=== PATIENT | female | born 2000 | race Caucasian/White ===

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

== ENCOUNTER 2022-01-02 11:38 | Emergency (ER) | payer BC, MEDICAID ==
[~2022-01-02] VITALS: Ht 174 cm; Wt 74.0 kg
[~2022-01-02 11:38] MED LIST changes: +CEFD300C3 PO; +NITR100C PO
[2022-01-02] MEDS ORDERED: NS IV 1000 ML 1,000 ML IV STA (12:34)
--- NOTE | 2022-01-02 12:39 | ED General ---
General Chief Complaint: Glucose Problems Stated Complaint: DKA Nursing Triage Note: PT STATES SHE MISS A DOSE OF LANTUS SUNDAY AND GLUCOSE WAS "OUT OF WACK YESTERDAY." Source of Information: Patient Exam Limitations: No Limitations History of Present Illness Date Seen by Provider: Jan 02, 2022 Time Seen by Provider: 12:37 Initial Comments Patient is a 21-year-old female who presents to the ED for abnormal blood sugar. She states Sunday she missed her Lantus. She is currently on NovoLog. She states her blood sugar has been up and down for the past few days. History of DKA with admission in the past. Patient states she started feeling weak fatigue and body aches that started this morning. She did vomited once this morning as well. She denies cough, fever, abdominal pain. She reports frequent urination. Not concern for . No recent travel surgeries. Allergies and Home Medications Allergies Coded Allergies: bismuth subsalicylate (Verified Allergy, Unknown, 10/27/21) Patient Home Medication List Home Medication List Reviewed: Yes Cefdinir (Cefdinir) 300 Mg Capsule, 300 MG PO BID Prescribed by: JOSIE SMYTH on 12/02/21 1022 Cephalexin (Cephalexin) 500 Mg Tablet, 500 MG PO BID Prescribed by: ROSSY FENG on 01/02/22 1601 Ferrous Sulfate (Iron) 325 Mg Tablet, 325 MG PO DAILY, (Reported) Entered as Reported by: COLT BOURNE on 11/21/21 1006 Ibuprofen (Ibuprofen) 200 Mg Tablet, 400-600 MG PO Q8H PRN for PAIN-MILD (1-4), (Reported) Entered as Reported by: COLT BOURNE on 11/21/21 1006 Insulin Aspart (Insulin Aspart Flexpen) 100 Unit/1 Ml Insuln.pen, UNIT SQ AC, (Reported) Entered as Reported by: COLT BOURNE on 11/21/21 1006 Insulin Glargine,Hum.rec.anlog (Lantus Solostar) 100 Unit/1 Ml Insuln.pen, 40 UNIT SQ HS, (Reported) Entered as Reported by: COLT BOURNE on 07/25/21 0936 Insulin Glargine,Hum.rec.anlog (Lantus Solostar) 100 Unit/1 Ml Insuln.pen, 35 UNIT SQ DAILY, (Reported) Entered as Reported by: COLT BOURNE on 07/25/21 0936 Review of Systems Review of Systems Constitutional: No chills, No diaphoresis, No fever, No malaise, No weakness EENTM: No ear pain, No blurred vision, No double vision, No eye pain, No tearing, No throat pain, No throat swelling Respiratory: No cough, No dyspnea on exertion, No hemoptysis, No orthopnea, No short of breath Cardiovascular: No chest pain Gastrointestinal: No abdominal pain, No diarrhea; nausea, vomiting Genitourinary: No decreased output, No discharge Musculoskeletal: No back pain, No joint pain Skin: No change in color, No change in hair/nails All Other Systems Reviewed Negative Unless Noted: Yes Past Cccumjl-Bwzvlh-Rynhmx Hx Immunizations Up To Date Tetanus Booster (TDap): Less than 5yrs PED Vaccines UTD: Yes First/Initial COVID19 Vaccinat: APR 2021 Second COVID19 Vaccination [place]: MAY 2021 Third COVID19 Vaccination Date: NONE Seasonal Allergies Seasonal Allergies: No Past Medical History Surgery/Hospitalization HX: 06/06/21-06/09/21 at for DKA. 08/2021--TRANSFERRED FROM [facility] IN FOR DKA AND CANNIBIS HYPEREMESIS Surgeries: No Respiratory: No Currently Using CPAP: No Currently Using BIPAP: No Cardiac: Yes (TACHYCARDIA) Palpitations Neurological: No Last Menstrual Period: Dec 01, 2021 Reproductive Disorders: No Female Reproductive Disorders: Denies Sexually Transmitted Disease: No HIV/AIDS: No Genitourinary: Yes Bladder Infection Gastrointestinal: Yes (CANNABIS HYPEREMESIS; CHRONIC 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 DX AGE 12) Diabetes, Insulin dep HEENT: No Loss of Vision: Denies Hearing Impairment: Denies Cancer: No Psychosocial: Yes Anxiety, Depression Integumentary: No Blood Disorders: No Adverse Reaction/Blood Tranf: No Family Medical History No Pertinent Family Hx Physical Exam Vital Signs Vital Signs - First Documented 01/02/22 12:29 Temp 36.2 Pulse 115 Resp 16 B/P (MAP) 109/80 (90) Pulse Ox 99 O2 Delivery Room Air Capillary Refill : Less Than 3 Seconds Height, Weight, BMI Height: 5'9.00" Weight: 255lbs. 0oz. 115.195698sz; 24.00 BMI Method:Stated General Appearance: No Apparent Distress, WD/WN Eyes: Bilateral Eye Normal Inspection, Bilateral Eye PERRL, Bilateral Eye EOMI HEENT: PERRL/EOMI, TMs Normal, Normal ENT Inspection, Pharynx Normal Neck: Full Range of Motion, Normal Inspection, Non Tender, Supple Respiratory: Chest Non Tender, Lungs Clear, Normal Breath Sounds, No Accessory Muscle Use, No Respiratory Distress Cardiovascular: No Edema, No Gallop, No JVD, No Murmur, Tachycardia Gastrointestinal: Normal Bowel Sounds, No Organomegaly, No Pulsatile Mass, Non Tender, Soft Back: Normal Inspection, No CVA Tenderness, No Vertebral Tenderness Extremity: Normal Capillary Refill, Normal Inspection, Normal Range of Motion, Non Tender Neurologic/Psychiatric: Alert, Oriented x3, No Motor/Sensory Deficits Procedures/Interventions Date of ETT Placement: Feb 18, 2021 Time of ETT Placement: 1432 Progress/Results/Core Measures Suspected Sepsis SIRS Temperature: Pulse: 115 Respiratory Rate: 16 Laboratory Tests 01/02/22 12:30: White Blood Count 6.7 Blood Pressure 109 /80 Mean: 90 Laboratory Tests 01/02/22 12:30: Creatinine 1.24, Platelet Count 405H, Total Bilirubin 0.3 Results/Orders Lab Results Laboratory Tests Test 01/02/22 12:30 01/02/22 12:32 01/02/22 12:44 01/02/22 13:35 Range/Units White Blood Count 6.7 4.3-11.0 10^3/uL Red Blood Count 4.74 3.80-5.11 10^6/uL Hemoglobin 13.7 11.5-16.0 g/dL Hematocrit 42 35-52 % Mean Corpuscular Volume 88 80-99 fL Mean Corpuscular Hemoglobin 29 25-34 pg Mean Corpuscular Hemoglobin Concent 33 32-36 g/dL Red Cell Distribution Width 14.8 H 10.0-14.5 % Platelet Count 405 H 130-400 10^3/uL Mean Platelet Volume 10.0 9.0-12.2 fL Immature Granulocyte % (Auto) 0 % Neutrophils (%) (Auto) 57 42-75 % Lymphocytes (%) (Auto) 34 12-44 % Monocytes (%) (Auto) 7 0-12 % Eosinophils (%) (Auto) 1 0-10 % Basophils (%) (Auto) 1 0-10 % Neutrophils # (Auto) 3.8 1.8-7.8 10^3/uL Lymphocytes # (Auto) 2.3 1.0-4.0 10^3/uL Monocytes # (Auto) 0.5 0.0-1.0 10^3/uL Eosinophils # (Auto) 0.1 0.0-0.3 10^3/uL Basophils # (Auto) 0.0 0.0-0.1 10^3/uL Immature Granulocyte # (Auto) 0.0 0.0-0.1 10^3/uL Sodium Level 143 135-145 MMOL/L Potassium Level 3.7 3.6-5.0 MMOL/L Chloride Level 106 98-107 MMOL/L Carbon Dioxide Level 22 21-32 MMOL/L Anion Gap 15 H 5-14 MMOL/L Blood Urea Nitrogen 14 7-18 MG/DL Creatinine 1.24 0.60-1.30 MG/DL Estimat Glomerular Filtration Rate 64 BUN/Creatinine Ratio 11 Glucose Level 72 70-105 MG/DL Calcium Level 9.3 8.5-10.1 MG/DL Corrected Calcium 9.4 8.5-10.1 MG/DL Total Bilirubin 0.3 0.1-1.0 MG/DL Aspartate Amino Transf (AST/SGOT) 56 H 5-34 U/L Alanine Aminotransferase (ALT/SGPT) 51 0-55 U/L Alkaline Phosphatase 195 H 40-136 U/L Total Protein 7.5 6.4-8.2 GM/DL Albumin 3.9 3.2-4.5 GM/DL Lipase 30 8-78 U/L Beta-Hydroxybutyrate (Chem panel) 0.92 H 0.00-0.27 MMOL/L Serum Test, Qualitative NEGATIVE NEGATIVE Glucometer 73 70-110 MG/DL Urine Color YELLOW Urine Clarity SL CLOUDY Urine pH 6.0 5-9 Urine Specific [place] 1.025 H 1.016-1.022 Urine Protein TRACE H NEGATIVE Urine Glucose (UA) NEGATIVE NEGATIVE Urine Ketones 1+ H NEGATIVE Urine Nitrite NEGATIVE NEGATIVE Urine Bilirubin NEGATIVE NEGATIVE Urine Urobilinogen 1.0 < = 1.0 MG/DL Urine Leukocyte Esterase TRACE H NEGATIVE Urine RBC (Auto) NEGATIVE NEGATIVE Urine RBC RARE /HPF Urine WBC 2-5 /HPF Urine Squamous Epithelial Cells 2-5 /HPF Urine Crystals PRESENT H /LPF Urine Amorphous Sediment LARGE ESTHELA URATES H /LPF Urine Bacteria FEW H /HPF Urine Casts NONE /LPF Urine Mucus NEGATIVE /LPF Urine Culture Indicated YES Blood Gas Puncture Site LEFT RAD Blood Gas Patient Temperature 37 Arterial Blood pH 7.34 *L 7.37-7.43 Arterial Blood Partial Pressure CO2 39 35-45 MMHG Arterial Blood Partial Pressure O2 79 79-93 MMHG Arterial Blood HCO3 20 L 23-27 MMOL/L Arterial Blood Total CO2 21.4 21.0-31.0 MMOL/L Arterial Blood Oxygen Saturation 96 94-100 % Arterial Blood Base Excess -4.5 L -2.5-2.5 MMOL/L Ajit Test YES-POS Blood Gas Ventilator Setting NO Blood Gas Inspired Oxygen ROOM AIR Test 01/02/22 15:52 Range/Units Glucometer 136 H 70-110 MG/DL My Orders Orders - CAN GRANT Accucheck Stat ONCE (01/02/22 11:57) Cbc With Automated Diff (01/02/22 12:34) Comprehensive Metabolic Panel (01/02/22 12:34) Lipase (01/02/22 12:34) Beta Hydroxybutyrate (01/02/22 12:34) Hcg,Qualitative Serum (01/02/22 12:34) Ua Culture If Indicated (01/02/22 12:34) Ns Iv 1000 Ml (Sodium Chloride 0.9%) (01/02/22 12:34) Ondansetron Injection (Zofran Injectio (01/02/22 12:45) Urine Culture (01/02/22 12:44) Arterial Blood Gas (01/02/22 13:25) General/Regular (01/02/22 Lunch) Accucheck Stat ONCE (01/02/22 15:47) Medications Given in ED Current Medications Medications Dose Ordered Sig/Thierno Route Start Time Stop Time Status Last Admin Dose Admin Ondansetron HCl 4 mg ONCE ONCE IVP 01/02/22 12:45 01/02/22 12:46 DC 01/02/22 12:51 4 MG Vital Signs/I&O 01/02/22 01/02/22 12:29 16:05 Temp 36.2 36.2 Pulse 115 107 Resp 16 16 B/P (MAP) 109/80 (90) 123/80 Pulse Ox 99 99 O2 Delivery Room Air Room Air Capillary Refill : Less Than 3 Seconds Blood Pressure Mean: 90 Point of Care Testing Finger Stick Blood Glucose: 72 Departure Communication (PCP) Patient blood sugar on arrival 73. Anion gap 15. +1 ketones in urine. ABG pH 7.34 with bicarb of 20. Appears to be in mild DKA. She was tachycardic which has improved. she has no chest pain or shortness of breath. She had normal white blood count, kidney function. Heart rate improved from 1 28 to107. Due to the slight DKA and tachycardic did recommend admission for better control of her blood sugar and recheck of lab work with IV fluids. Patient refused. She states she is feeling much better at this time. She was tolerating p.o. fluids at bedside. She states she will follow-up with her PCP in the next few days for reevaluation. She states she does have her Lantus and her NovoLog. She did eat something here with her blood sugar to 138. Did offer a second liter fluid patient refused. Strongly recommend returning if symptoms worsen. She has been discharged in the past and return fairly quick. Discussed with patient this may happen however recommend continue monitoring blood sugar at home. Impression Primary Impression: DKA, type 1 Disposition: 01 HOME, SELF-CARE Condition: Stable Departure-Patient Inst. Decision time for Depature: 15:57 Referrals: COLT LAMBERT DO (PCP/Family) Primary Care Physician Patient Instructions: Diabetes Type 1, Adult (DC) Add. Discharge Instructions: Need to follow-up your PCP in 2 or 3 days for evaluation. If any worsening symptoms strongly recommend returning All discharge instructions reviewed with patient and/or family. Voiced understanding. Scripts Cephalexin (Cephalexin) 500 Mg Tablet 500 MG PO BID for 7 Days, #14 TAB Prov: CAN GRANT 01/02/22 CAN GRANT Jan 02, 2022 12:39
[2022-01-02] MEDS ORDERED: ONDANSETRON 4 MG/2 ML (SDV) Z0FRAN IVP ONE (12:45)
[2022-01-02 12:46] LABS: BASOPHILS % (AUTO) 1 % (0-10); EOSINOPHILS # (AUTO) 0.1 10^3/uL (0.0-0.3); EOSINOPHILS % (AUTO) 1 % (0-10); HEMATOCRIT 42 % (35-52); HEMOGLOBIN 13.7 g/dL (11.5-16.0); LYMPHOCYTES # (AUTO) 2.3 10^3/uL (1.0-4.0); LYMPHOCYTES % (AUTO) 34 % (12-44); MEAN CORPUSCULAR HEMOGLOBIN 29 pg (25-34); MEAN CORPUSCULAR HGB CONC 33 g/dL (32-36); MEAN CORPUSCULAR VOLUME 88 fL (80-99); MONOCYTES # (AUTO) 0.5 10^3/uL (0.0-1.0); MONOCYTES % (AUTO) 7 % (0-12); NEUTROPHILS # (AUTO) 3.8 10^3/uL (1.8-7.8); NEUTROPHILS % (AUTO) 57 % (42-75); PLATELET COUNT 405 10^3/uL (130-400); WHITE BLOOD COUNT 6.7 10^3/uL (4.3-11.0)
[2022-01-02 12:51] LABS: CLARITY,URINE SL CLOUDY; COLOR,URINE YELLOW; GLUCOSE, URINE (UA) NEGATIVE (NEGATIVE); KETONES,URINE 1+ (NEGATIVE); LEUKOCYTE ESTERASE ,URINE TRACE (NEGATIVE); NITRITE,URINE NEGATIVE (NEGATIVE); PROTEIN,URINE TRACE (NEGATIVE)
[2022-01-02 12:59] LABS: ALBUMIN 3.9 GM/DL (3.2-4.5); BILIRUBIN,TOTAL 0.3 MG/DL (0.1-1.0); CALCIUM 9.3 MG/DL (8.5-10.1); CREATININE SERUM 1.24 MG/DL (0.60-1.30); POTASSIUM 3.7 MMOL/L (3.6-5.0); TOTAL PROTEIN 7.5 GM/DL (6.4-8.2)
[2022-01-02 13:10] LABS: BACTERIA,URINE FEW /HPF; BILIRUBIN,URINE NEGATIVE (NEGATIVE); RBC,URINE RARE /HPF
[2022-01-02 13:11] LABS: AMORPHOUS SEDIMENT,UR LARGE AMOR URATES /LPF
[2022-01-02 13:43] LABS: ABG BASE EXCESS -4.5 MMOL/L (-2.5-2.5); ABG OXYGEN SATURATION 96 % (94-100); ABG PCO2 39 MMHG (35-45); ABG PO2 79 MMHG (79-93); ABG TCO2 21.4 MMOL/L (21.0-31.0)
[2022-01-02 13:45] LABS: ABG PH 7.34 (7.37-7.43); ALLENS TEST YES-POS; INSPIRED O2 ROOM AIR; PATIENT TEMP 37; VENTILATOR NO
[2022-01-02] MEDS ORDERED: CEPH500T PO (16:01)
[2022-01-02 16:05] VITALS: BP 123/80
== END 2022-01-02 16:05 | disposition home or self-care (01) ==
LOC: EDUNIT# 11:38 → ER 11:39
DX: E10.10 Type 1 diabetes mellitus with ketoacidosis without coma (principal); T38.3X6A Underdosing of insulin and oral hypoglycemic [antidiabetic] drugs, initial encounter; Z91.14 Patient's other noncompliance with medication regimen
CPT/HCPCS: 36415; 80053; 81000; 82010; 82805; 82947; 83690; 84703; 85025; 87077; 87088

== ENCOUNTER 2022-02-15 23:25 | Inpatient (IN) | payer BC, MEDICAID ==
[~2022-02-15] VITALS: Ht 175.3 cm; Wt 69.8 kg
[~2022-02-15 23:25] MED LIST changes: +CEPH500T PO
[2022-02-15 23:39] VITALS: BP 119/67
--- NOTE | 2022-02-16 00:11 | ED Back Pain ---
General Chief Complaint: Back Problems Stated Complaint: BACK PAIN Nursing Triage Note: PT AMB TO RM 5 WITH FRIEND WITH C/O LOW BACK PAIN X1 MONTH AND MID BACK PAIN X2 WEEKS AFTER FALLING. PT HAS TRIED TYLENOL WITHOUT RELIEF Source of Information: Patient History of Present Illness Date Seen by Provider: Feb 16, 2022 Time Seen by Provider: 23:43 Initial Comments PT ARRIVES VIA POV FROM HOME WITH MALE FRIEND C/O LOWER BACK PAIN X 1 MONTH FELL AT A HOTEL POOL 2 WEEKS AGO, LANDED ON HER BACK ND STARTED HAVING PAIN IN MID BACK ALSO NOW HER WHOLE BACK HURTS AND STATES "IT HURTS TO DO ANYTHING" NO RADIATION OF PAIN NO PARESTHESIAS OR MOTOR DEFICITS NO LOSS OF BOWEL OR BLADDER CONTROL NO URINARY SYMPTOMS NO FEVER NO NAUSEA/VOMITING/DIARRHEA OR ABDOMINAL PAIN HAS NOT SOUGHT CARE UNTIL TONIGHT SYMPTOMS NO DIFFERENT TONIGHT HAS NOT TAKEN ANYTHING TODAY FOR PAIN--TOOK TYLENOL X 1 "A COUPLE OF DAYS AGO"--NO RELIEF. PT IS TYPE 1 DIABETIC HAS HAD A MULTITUDE OF VISITS HERE, WITH MULTIPLE ADMITS FOR DKA. 8 VISITS IN 2021 PT STATES SHE CHECKED HER BLOOD SUGAR AROUND 2245 And IT WAS 244, THEN SHE ATE SONIC CHICKEN STRIPS, TATER TOTS AND ONION RINGS, AND HAD A BLACKBERRY WITH [facility] [employer]. STATES SHE "DOSED" FOR HER INTAKE--BUT DID NOT RECHECK HER BLOOD SUGAR PT HAS HAD COVID-19 VACCINE X 2--LAST ONE WAS ABOUT A YEAR AGO. NO FLU VACCINE Other Comments PCP: [facility], PEPE LAMBERT. LAST VISIT > 1 MONTH AGO. Allergies and Home Medications Allergies Coded Allergies: bismuth subsalicylate (Verified Allergy, Unknown, 10/27/21) Patient Home Medication List Home Medication List Reviewed: Yes Cefdinir (Cefdinir) 300 Mg Capsule, 300 MG PO BID Prescribed by: JOSIE SMYTH on 12/02/21 1022 Cephalexin (Cephalexin) 500 Mg Tablet, 500 MG PO BID Prescribed by: ROSSY FENG on 01/02/22 1601 Ferrous Sulfate (Iron) 325 Mg Tablet, 325 MG PO DAILY, (Reported) Entered as Reported by: COLT BOURNE on 11/21/21 1006 Ibuprofen (Ibuprofen) 200 Mg Tablet, 400-600 MG PO Q8H PRN for PAIN-MILD (1-4), (Reported) Entered as Reported by: COLT BOURNE on 11/21/21 1006 Insulin Aspart (Insulin Aspart Flexpen) 100 Unit/1 Ml Insuln.pen, UNIT SQ AC, (Reported) Entered as Reported by: COLT BOURNE on 11/21/21 1006 Insulin Glargine,Hum.rec.anlog (Lantus Solostar) 100 Unit/1 Ml Insuln.pen, 40 UNIT SQ HS, (Reported) Entered as Reported by: COLT BOURNE on 07/25/21 0936 Insulin Glargine,Hum.rec.anlog (Lantus Solostar) 100 Unit/1 Ml Insuln.pen, 35 UNIT SQ DAILY, (Reported) Entered as Reported by: COLT BOURNE on 07/25/21935 Review of Systems Constitutional: no symptoms reported EENTM: no symptoms reported Respiratory: no symptoms reported Cardiovascular: no symptoms reported Gastrointestinal: no symptoms reported; No abdominal pain, No nausea, No vomiting Genitourinary: no symptoms reported; No dysuria, No frequency, No hematuria, No pain Control/STD Prophylaxis: None Musculoskeletal: see HPI, back pain Skin: no symptoms reported Psychiatric/Neurological: No Symptoms Reported Past Rudpcpd-Cluvgg-Dlxmlg Hx Patient Social History Tobacco Use?: No Use of E-Cig and/or Vaping dev: Yes E-Cig or Vaping type used: Nicotine Substance use?: Yes Substance type: Marijuana Alcohol Use?: Yes Alcohol type: Hard Liquor Alcohol Frequency: Rarely Pt feels they are or have been: No Immunizations Up To Date Tetanus Booster (TDap): Less than 5yrs PED Vaccines UTD: Yes First/Initial COVID19 Vaccinat: APR 2021 Second COVID19 Vaccination [place]: MAY 2021 Third COVID19 Vaccination Date: NONE 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 08/2021--TRANSFERRED FROM [facility] [place] IN FOR DKA AND CANNIBIS HYPEREMESIS DM Surgeries: No Respiratory: No Currently Using CPAP: No Currently Using BIPAP: No Cardiac: Yes (TACHYCARDIA) Palpitations Neurological: No : No Last Menstrual Period: February 06, 2022 Reproductive Disorders: No Female Reproductive Disorders: Denies Sexually Transmitted Disease: No HIV/AIDS: No Genitourinary: Yes Bladder Infection Gastrointestinal: Yes (CANNABIS HYPEREMESIS; CHRONIC 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 DX AGE 12) Diabetes, Insulin dep HEENT: No Loss of Vision: Denies Hearing Impairment: Denies Cancer: No Psychosocial: Yes Anxiety, Depression Integumentary: No Blood Disorders: No Adverse Reaction/Blood Tranf: No Family Medical History No Pertinent Family Hx Physical Exam Vital Signs Vital Signs - First Documented 02/15/22 23:39 Temp 36.8 Pulse 120 Resp 18 B/P (MAP) 119/67 (84) Capillary Refill : Height, Weight, BMI Height: 5'9.00" Weight: 255lbs. 0oz. 115.522385wi; 24.00 BMI Method:Stated General Appearance: No Apparent Distress (BUT IS VERY DRAMATIC AND WALKS AND MOVES SLOWLY AND HOLDING LEFT FLANK AREA. ), WD/WN HEENT: PERRL/EOMI, Moist Mucous Membranes Neck: Full Range of Motion, Normal Inspection, Non Tender, Supple Cardiovascular: No Edema, No JVD, No Murmur, Normal Peripheral Pulses, Tachycardia (HR 120'S) Respiratory: Normal Breath Sounds, No Accessory Muscle Use, No Respiratory Distress Gastrointestinal: Normal Bowel Sounds, No Organomegaly, No Pulsatile Mass, Non Tender, Soft Back: Decreased Range of Motion, Other (DIFFUSE BACK TENDERNESS. NO EXTERNAL EVIDENCE OF TRAUMA) Extremity: Normal Capillary Refill, Normal Inspection, Normal Range of Motion, Non Tender, No Calf Tenderness Neurologic/Psychiatric: Alert, Oriented x3, No Motor/Sensory Deficits, energy and sustainability manager II- XII Norm as Tested Skin: Normal Color, Warm/Dry; No Ecchymosis; Tattoos/Piercings (TATTOOS), Other (NO EXTERNAL EVIDENCE OF TRAUMA ) Procedures/Interventions Date of ETT Placement: Feb 18, 2021 Time of ETT Placement: 1431 Progress/Results/Core Measures Results/Orders Lab Results Laboratory Tests Test 02/15/22 23:47 02/16/22 00:21 02/16/22 00:30 02/16/22 00:40 Range/Units Glucometer 400 *H 70-110 MG/DL Urine Color YELLOW Urine Clarity SL CLOUDY Urine pH 5.5 5-9 Urine Specific [place] 1.015 L 1.016-1.022 Urine Protein NEGATIVE NEGATIVE Urine Glucose (UA) 3+ H NEGATIVE Urine Ketones 1+ H NEGATIVE Urine Nitrite NEGATIVE NEGATIVE Urine Bilirubin NEGATIVE NEGATIVE Urine Urobilinogen 0.2 < = 1.0 MG/DL Urine Leukocyte Esterase TRACE H NEGATIVE Urine RBC (Auto) NEGATIVE NEGATIVE Urine RBC NONE /HPF Urine WBC 5-10 H /HPF Urine Squamous Epithelial Cells 0-2 /HPF Urine Crystals NONE /LPF Urine Bacteria FEW H /HPF Urine Casts NONE /LPF Urine Mucus NEGATIVE /LPF Urine Culture Indicated YES Urine Opiates Screen NEGATIVE NEGATIVE Urine Oxycodone Screen NEGATIVE NEGATIVE Urine Methadone Screen NEGATIVE NEGATIVE Urine Propoxyphene Screen NEGATIVE NEGATIVE Urine Barbiturates Screen NEGATIVE NEGATIVE Ur Tricyclic Antidepressants Screen NEGATIVE NEGATIVE Urine Phencyclidine Screen NEGATIVE NEGATIVE Urine Amphetamines Screen NEGATIVE NEGATIVE Urine Methamphetamines Screen NEGATIVE NEGATIVE Urine Benzodiazepines Screen NEGATIVE NEGATIVE Urine Cocaine Screen NEGATIVE NEGATIVE Urine Cannabinoids Screen NEGATIVE NEGATIVE White Blood Count 5.1 4.3-11.0 10^3/uL Red Blood Count 4.21 3.80-5.11 10^6/uL Hemoglobin 12.6 11.5-16.0 g/dL Hematocrit 38 35-52 % Mean Corpuscular Volume 89 80-99 fL Mean Corpuscular Hemoglobin 30 25-34 pg Mean Corpuscular Hemoglobin Concent 34 32-36 g/dL Red Cell Distribution Width 14.6 H 10.0-14.5 % Platelet Count 361 130-400 10^3/uL Mean Platelet Volume 10.3 9.0-12.2 fL Immature Granulocyte % (Auto) 1 % Neutrophils (%) (Auto) 44 42-75 % Lymphocytes (%) (Auto) 44 12-44 % Monocytes (%) (Auto) 9 0-12 % Eosinophils (%) (Auto) 1 0-10 % Basophils (%) (Auto) 1 0-10 % Neutrophils # (Auto) 2.2 1.8-7.8 10^3/uL Lymphocytes # (Auto) 2.3 1.0-4.0 10^3/uL Monocytes # (Auto) 0.5 0.0-1.0 10^3/uL Eosinophils # (Auto) 0.1 0.0-0.3 10^3/uL Basophils # (Auto) 0.0 0.0-0.1 10^3/uL Immature Granulocyte # (Auto) 0.0 0.0-0.1 10^3/uL Sodium Level 136 135-145 MMOL/L Potassium Level 4.2 3.6-5.0 MMOL/L Chloride Level 101 98-107 MMOL/L Carbon Dioxide Level 17 L 21-32 MMOL/L Anion Gap 18 H 5-14 MMOL/L Blood Urea Nitrogen 13 7-18 MG/DL Creatinine 1.22 0.60-1.30 MG/DL Estimat Glomerular Filtration Rate 66 BUN/Creatinine Ratio 11 Glucose Level 486 *H 70-105 MG/DL Lactic Acid Level 2.69 *H 0.50-2.00 MMOL/L Calcium Level 8.7 8.5-10.1 MG/DL Corrected Calcium 9.1 8.5-10.1 MG/DL Magnesium Level 2.1 1.6-2.4 MG/DL Total Bilirubin 0.3 0.1-1.0 MG/DL Aspartate Amino Transf (AST/SGOT) 67 H 5-34 U/L Alanine Aminotransferase (ALT/SGPT) 55 0-55 U/L Alkaline Phosphatase 178 H 40-136 U/L Total Protein 6.6 6.4-8.2 GM/DL Albumin 3.5 3.2-4.5 GM/DL Amylase Level 76 25-125 U/L Lipase 57 8-78 U/L Beta-Hydroxybutyrate (Chem panel) 2.16 H 0.00-0.27 MMOL/L Procalcitonin 0.17 H <0.10 NG/ML Influenza Type A (RT-PCR) Not Detected Not Detecte Influenza Type B (RT-PCR) Not Detected Not Detecte SARS-CoV-2 RNA (RT-PCR) Not Detected Not Detecte Test 02/16/22 01:44 Range/Units Blood Gas Puncture Site LRAD Blood Gas Patient Temperature 98.2 Arterial Blood pH 7.30 *L 7.37-7.43 Arterial Blood Partial Pressure CO2 39 35-45 MMHG Arterial Blood Partial Pressure O2 39 *L 79-93 MMHG Arterial Blood HCO3 18 L 23-27 MMOL/L Arterial Blood Total CO2 19.6 L 21.0-31.0 MMOL/L Arterial Blood Oxygen Saturation 67 L 94-100 % Arterial Blood Base Excess -6.9 L -2.5-2.5 MMOL/L Ajit Test YES-POS Blood Gas Ventilator Setting NO Blood Gas Inspired Oxygen RA My Orders Orders - JUAN CARLOS,LADONNA K DO Drug Screen Stat (Urine) (02/15/22 23:43) Ua Culture If Indicated (02/15/22 23:43) Urine Bedside (02/15/22 23:43) Accucheck Stat ONCE (02/15/22 23:44) Ed Iv/Invasive Line Start (02/16/22 00:04) Amylase (02/16/22 00:04) Cbc With Automated Diff (02/16/22 00:04) Comprehensive Metabolic Panel (02/16/22 00:04) Lactic Acid Analyzer (02/16/22 00:04) Lipase (02/16/22 00:04) Magnesium (02/16/22 00:04) Procalcitonin (Pct) (02/16/22 00:04) Ed Iv/Invasive Line Start (02/16/22 00:04) Ns Iv 1000 Ml (Sodium Chloride 0.9%) (02/16/22 00:15) Beta Hydroxybutyrate (02/16/22 00:04) Covid 19 Inhouse Test (02/16/22 00:04) Influenza A And B By Pcr (02/16/22 00:04) Isolation Central Supply Req (02/16/22 00:04) Urine Culture (02/16/22 00:21) Ceftriaxone 1 Gm Pre-Mix (Rocephin 1 Gm (02/16/22 00:45) Ct Thoracic/Lumbar Spine Wo (02/16/22 00:45) Ketorolac Injection (Toradol Injection) (02/16/22 01:00) Insulin (Regular) Human (Novolin R (Per (02/16/22 01:15) Ed Iv/Invasive Line Start (02/16/22 01:07) Ns Iv 1000 Ml (Sodium Chloride 0.9%) (02/16/22 01:15) Arterial Blood Gas (02/16/22 01:35) Medications Given in ED Current Medications Medications Dose Ordered Sig/Thierno Route Start Time Stop Time Status Last Admin Dose Admin Ceftriaxone Sodium/Dextrose 50 ml @ 100 mls/hr ONCE ONCE IV 02/16/22 00:45 02/16/22 01:14 DC 02/16/22 01:15 100 MLS/HR Insulin Human Regular 15 unit ONCE ONCE SC 02/16/22 01:15 02/16/22 01:16 DC 02/16/22 01:29 15 UNIT Ketorolac Tromethamine 30 mg ONCE ONCE IVP 02/16/22 01:00 02/16/22 01:01 DC 02/16/22 01:14 30 MG Vital Signs/I&O 02/15/22 02/16/22 23:39 01:46 Temp 36.8 Pulse 120 Resp 18 B/P (MAP) 119/67 (84) 119/67 Blood Pressure Mean: 84 FSBG Bedside Testing Finger Stick Blood Glucose: 400 Blood Glucose Action Taken: RN AND DR NOTIFIED Progress Progress Note : Progress Note GIVEN IV FLUIDS AND TORADOL GIVEN INSULIN--ACCUCHECK ON ARRIVAL 400, REPEAT ACCUCHECK 375 GIVEN ROCEPHIN VERY DIFFICULT IV ACCESS ABG'S DONE, SUSPECT IS VENOUS SOURCE. NO DETERIORATION IN PT'S CONDITION DURING ER STAY Diagnostic Imaging Comments CT THORACIC/LUMBAR SPINE--PER [facility] VIA FAX AT 0138 NO ACUTE PROCESS DEGENERATIVE CHANGES OF LUMBAR SPINE Reviewed: Reviewed by Hi Departure Communication (Admissions) 0155--SPOKE WITH DR. OKEEFE, ACCEPTS PT FOR ADMIT 0200--REPORT TO E-ICU PHYSICIAN. Impression Primary Impression: DKA (diabetic ketoacidosis) Additional Impressions: Type 1 diabetes mellitus UTI (urinary tract infection) Back pain Disposition: ADMITTED INPATIENT Condition: Stable Admissions Decision to Admit Reason: Admit from ER (General) Decision to Admit/Date: Feb 16, 2022 Time/Decision to Admit Time: 01:55 Departure-Patient Inst. Referrals: COLT LAMBERT DO (PCP/Family) Primary Care Physician LADONNA RANGEL DO Feb 16, 2022 00:11
[2022-02-16] MEDS ORDERED: NS IV 1000 ML 1,000 ML IV SCH ×3 (00:15→02:45)
[2022-02-16 00:31] LABS: BILIRUBIN,URINE NEGATIVE (NEGATIVE); CLARITY,URINE SL CLOUDY; COLOR,URINE YELLOW; GLUCOSE, URINE (UA) 3+ (NEGATIVE); KETONES,URINE 1+ (NEGATIVE); LEUKOCYTE ESTERASE ,URINE TRACE (NEGATIVE); NITRITE,URINE NEGATIVE (NEGATIVE); PH,URINE 5.5 (5-9); PROTEIN,URINE NEGATIVE (NEGATIVE)
[2022-02-16 00:41] LABS: BACTERIA,URINE FEW /HPF; SQUAMOUS EPITHELIAL CELL,UR 0-2 /HPF
[2022-02-16 00:42] LABS: AMPHETAMINE SCREEN, URINE NEGATIVE (NEGATIVE); BARBITURATE SCREEN URINE NEGATIVE (NEGATIVE); BENZODIAZEPINES SCREEN URINE NEGATIVE (NEGATIVE); CANNABINOID SCREEN, URINE NEGATIVE (NEGATIVE); COCAINE SCREEN URINE NEGATIVE (NEGATIVE); METHADONE STAT NEGATIVE (NEGATIVE); OPIATE SCREEN URINE NEGATIVE (NEGATIVE); OXYCODONE STAT NEGATIVE (NEGATIVE); PROPOXYPHENE STAT NEGATIVE (NEGATIVE); TRICYCLIC ANTIDEPRESSANTS SCRE NEGATIVE (NEGATIVE)
[2022-02-16 00:43] LABS: BASOPHILS % (AUTO) 1 % (0-10); EOSINOPHILS # (AUTO) 0.1 10^3/uL (0.0-0.3); EOSINOPHILS % (AUTO) 1 % (0-10); HEMATOCRIT 38 % (35-52); HEMOGLOBIN 12.6 g/dL (11.5-16.0); LYMPHOCYTES # (AUTO) 2.3 10^3/uL (1.0-4.0); LYMPHOCYTES % (AUTO) 44 % (12-44); MEAN CORPUSCULAR HEMOGLOBIN 30 pg (25-34); MEAN CORPUSCULAR HGB CONC 34 g/dL (32-36); MEAN CORPUSCULAR VOLUME 89 fL (80-99); MEAN PLATELET VOLUME 10.3 fL (9.0-12.2); MONOCYTES # (AUTO) 0.5 10^3/uL (0.0-1.0); MONOCYTES % (AUTO) 9 % (0-12); NEUTROPHILS # (AUTO) 2.2 10^3/uL (1.8-7.8); NEUTROPHILS % (AUTO) 44 % (42-75); PLATELET COUNT 361 10^3/uL (130-400); WHITE BLOOD COUNT 5.1 10^3/uL (4.3-11.0)
[2022-02-16] MEDS ORDERED: cefTRIAXone 1 GM PRE-MIX 50 ML IV ONE (00:45)
[2022-02-16 00:55] LABS: ALBUMIN 3.5 GM/DL (3.2-4.5); POTASSIUM 4.2 MMOL/L (3.6-5.0)
[2022-02-16 00:56] LABS: CALCIUM 8.7 MG/DL (8.5-10.1)
[2022-02-16 00:57] LABS: TOTAL PROTEIN 6.6 GM/DL (6.4-8.2)
[2022-02-16 00:59] LABS: BILIRUBIN,TOTAL 0.3 MG/DL (0.1-1.0)
[2022-02-16] MEDS ORDERED: KETOROLAC 30 MG/ML VIAL IVP ONE (01:00)
[2022-02-16 01:01] LABS: CREATININE SERUM 1.22 MG/DL (0.60-1.30)
[2022-02-16 01:03] LABS: MAGNESIUM 2.1 MG/DL (1.6-2.4)
[2022-02-16] MEDS ORDERED: inSUlin (REGULAR) HUMAN 1 UNIT/0.01 ML (CHARGE PER UNIT) SC ONE (01:15)
[2022-02-16 01:51] LABS: ABG BASE EXCESS -6.9 MMOL/L (-2.5-2.5); ABG OXYGEN SATURATION 67 % (94-100); ABG PCO2 39 MMHG (35-45); ABG TCO2 19.6 MMOL/L (21.0-31.0)
[2022-02-16 01:53] LABS: ALLENS TEST YES-POS; INSPIRED O2 RA; PATIENT TEMP 98.2; VENTILATOR NO
[2022-02-16 01:54] LABS: ABG PO2 39 MMHG (79-93)
[2022-02-16] MEDS ORDERED: KETOROLAC 30 MG/ML VIAL IV PRN (02:45)
[2022-02-16] MEDS ORDERED: D5 1/2 NS 1000 ML IV SOLUTION 1,000 ML IV SCH (02:45)
[2022-02-16] MEDS ORDERED: ONDANSETRON 4 MG/2 ML (SDV) Z0FRAN IV PRN (02:45)
[2022-02-16] MEDS ORDERED: 1/2 NS IV SOLUTION 1,000 ML IV ONE (02:51)
--- NOTE | 2022-02-16 03:18 | Tele-ICU Progress Note ---
Progress Note 21F with DM1, frequent DKA admissions presented for severe and progressive back pain, found to be in DKA. Glucose 486 with anion gap 18. Prior to presentation had Sonic chicken strips, tater tots, onion rings and a sprite (regular). She did dose her insulin for the meal, did not recheck glucose after. - DKA protocol including insulin gtt, serial labs, IVF - back pain: CT reviewed, virtual read reviewed. Appears to have Schmorl's nodes indicative of disc herniation. - UTI: borderline UA, likely related to DKA. Empiric rocephin given. Culture pending. Focused Exam Lactate Level 02/16/22 00:30: Lactic Acid Level 2.69*H Height, Weight, BMI Height: 5'9.00" Weight: 255lbs. 0oz. [id number]; 24.00 BMI Method:Stated Lactic Acid Level Laboratory Tests Test 02/16/22 00:30 Lactic Acid Level 2.69 MMOL/L (0.50-2.00) *H ANG OGDEN MD Feb 16, 2022 03:18
[2022-02-16 03:41] LABS: BASOPHILS # (AUTO) 0.1 10^3/uL (0.0-0.1); BASOPHILS % (AUTO) 1 % (0-10); EOSINOPHILS # (AUTO) 0.1 10^3/uL (0.0-0.3); EOSINOPHILS % (AUTO) 2 % (0-10); HEMATOCRIT 33 % (35-52); HEMOGLOBIN 10.6 g/dL (11.5-16.0); LYMPHOCYTES # (AUTO) 3.5 10^3/uL (1.0-4.0); LYMPHOCYTES % (AUTO) 57 % (12-44); MEAN CORPUSCULAR HEMOGLOBIN 30 pg (25-34); MEAN CORPUSCULAR HGB CONC 32 g/dL (32-36); MEAN CORPUSCULAR VOLUME 93 fL (80-99); MONOCYTES # (AUTO) 0.5 10^3/uL (0.0-1.0); MONOCYTES % (AUTO) 9 % (0-12); NEUTROPHILS # (AUTO) 1.9 10^3/uL (1.8-7.8); NEUTROPHILS % (AUTO) 31 % (42-75); PLATELET COUNT 301 10^3/uL (130-400); WHITE BLOOD COUNT 6.2 10^3/uL (4.3-11.0)
[2022-02-16] MEDS: 1/2 NS IV SOLUTION 1,000 ML IV SCH ×2 (03:45→06:59)
[2022-02-16 04:14] LABS: POTASSIUM 3.3 MMOL/L (3.6-5.0)
[2022-02-16 04:16] LABS: CALCIUM 7.9 MG/DL (8.5-10.1)
[2022-02-16 04:20] LABS: CREATININE SERUM 0.93 MG/DL (0.60-1.30)
[2022-02-16] MEDS ORDERED: polyethylene glycoL POWDER 17 GM (MIRALAX) PACK PO PRN (04:30)
[2022-02-16] MEDS ORDERED: MAGNESIUM CITRATE 300 ML BTL PO PRN (04:30)
[2022-02-16] MEDS ORDERED: morphine INJ 4 MG/ML 1 ML (VIAL/SYRINGE) IV PRN (04:45)
[2022-02-16] MEDS: POTASSIUM CL 10MEQ/50ML IVPB 50 ML IV SCH ×2 (04:47→06:55)
[2022-02-16 05:30] LABS: POTASSIUM 2.8 MMOL/L (3.6-5.0)
[2022-02-16 05:31] LABS: CALCIUM 8.2 MG/DL (8.5-10.1)
[2022-02-16 05:33] LABS: TOTAL PROTEIN 5.6 GM/DL (6.4-8.2)
[2022-02-16 05:35] LABS: BILIRUBIN,TOTAL 0.1 MG/DL (0.1-1.0)
[2022-02-16 05:36] LABS: PHOSPHORUS 2.7 MG/DL (2.3-4.7)
[2022-02-16 05:37] LABS: CREATININE SERUM 0.8 MG/DL (0.60-1.30)
[2022-02-16 05:40] LABS: MAGNESIUM 1.7 MG/DL (1.6-2.4)
--- NOTE | 2022-02-16 06:42 | Diagnostic Imaging Report ---
PROCEDURE: CT thoracic and lumbar spine without contrast. TECHNIQUE: Multiple contiguous axial images were obtained through the thoracic and lumbar spine without the use of intravenous contrast. Sagittal and coronal reformations were then performed. All CT scans use one or more of the following dose optimizing techniques: automated exposure control, MA and/or KvP adjustment based on a patient size and exam type, or iterative reconstruction. INDICATION: Lower back pain x1 month. Mid back pain x2 weeks. Recent fall. COMPARISON: None FINDINGS: CT thoracic spine: Static alignment of the thoracic spine is maintained. There is no significant anteroretrolisthesis. There is no evidence of jumped facets. Vertebral body heights are maintained. There is no acute fracture. No bony fragments are seen within the spinal canal. No significant degenerative changes are identified. Pre and paravertebral soft tissue structures are unremarkable. Included portions of the lung fuller are clear. CT lumbar spine: Static alignment of the lumbar spine is maintained. There is no significant anteroretrolisthesis. There is no evidence of jumped facets. Vertebral body heights are maintained. There is no acute fracture. Note is made of broad-based posterior disc bulge greatest at the L3-L4 and L4-L5 levels. There also appears to be inferior extrusion of disc material within the anterior epidural space at L3-L4. This does result in at least moderate narrowing of the spinal canal. Pre and paravertebral soft tissue structures are unremarkable. IMPRESSION: 1. No acute fracture or dislocation of the thoracic or lumbar spine. 2. Degenerative changes lower lumbar spine greatest at L3-L4 as described above. Correlation with MRI may be of benefit. Dictated by: Dictated on workstation # [id number]
[2022-02-16] MEDS ORDERED: CATHETER FLUSH 10 ML SYR IV PRN (07:00)
[2022-02-16] MEDS ORDERED: HYDROcodone/APAP 5 MG/325 MG (LORTAB) TAB PO PRN (08:15)
[2022-02-16 09:49] LABS: CALCIUM 8.3 MG/DL (8.5-10.1); CREATININE SERUM 0.64 MG/DL (0.60-1.30); POTASSIUM 4.1 MMOL/L (3.6-5.0)
[2022-02-16] MEDS ORDERED: ACET-2267 PO (11:00)
[2022-02-16] MEDS: inSUlin ASPART (NovoLOG) 1 UNIT/0.01 ML (CHARGE PER UNIT) SC SCH ×4 (11:23→16:14)
[2022-02-16] MEDS ORDERED: CATHETER FLUSH 10 ML SYR IV SCH (14:00)
[2022-02-16 16:10] LABS: CALCIUM 8.8 MG/DL (8.5-10.1); CREATININE SERUM 0.72 MG/DL (0.60-1.30); POTASSIUM 4.3 MMOL/L (3.6-5.0)
--- NOTE | 2022-02-16 16:27 | Short Stay Summary ---
HPI History of Present Illness: 21 yo F well known to me with DKA. States that she came to the ER with back pain and was found to have elevated blood sugars. States that her sugars at home have been doing ok. States that she has been having back pain for the last few weeks and then she fell at work and has been having more back pain. Denies any fever or chills. She has been eating normally. No N/V or abdominal pain. Source: patient Exam Limitations: no limitations Date seen by provider: Feb 16, 2022 Time Seen by Provider: 09:45 Attending Physician Carlos Lyn DO PCP Admitting Physician: Jose Esposito MD Attending Physician: Jose Esposito MD Consult Date of Admission Feb 16, 2022 at 01:55 Home Medications Home Medications Reviewed patient Home Medication Reconciliation performed by pharmacy medication reconciliations template reproduction technician and/or nursing. Patients Allergies have been reviewed. 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: [employer] Past Medical History Type I DM Depression Family Medical History Significant Family History: No Pertinent Family Hx Review of Systems ([facility]) Constitutional: no symptoms reported EENTM: no symptoms reported Respiratory: no symptoms reported, dyspnea on exertion Gastrointestinal: no symptoms reported Genitourinary: frequency Musculoskeletal: back pain Skin: no symptoms reported Psychiatric/Neurological: No Symptoms Reported Reviewed Test Results Reviewed Test Results Lab Laboratory Tests Test 02/15/22 23:47 02/16/22 00:21 02/16/22 00:30 02/16/22 00:40 Range/Units Glucometer 400 *H 70-110 MG/DL Urine Color YELLOW Urine Clarity SL CLOUDY Urine pH 5.5 5-9 Urine Specific Reserve 1.015 L 1.016-1.022 Urine Protein NEGATIVE NEGATIVE Urine Glucose (UA) 3+ H NEGATIVE Urine Ketones 1+ H NEGATIVE Urine Nitrite NEGATIVE NEGATIVE Urine Bilirubin NEGATIVE NEGATIVE Urine Urobilinogen 0.2 < = 1.0 MG/DL Urine Leukocyte Esterase TRACE H NEGATIVE Urine RBC (Auto) NEGATIVE NEGATIVE Urine RBC NONE /HPF Urine WBC 5-10 H /HPF Urine Squamous Epithelial Cells 0-2 /HPF Urine Crystals NONE /LPF Urine Bacteria FEW H /HPF Urine Casts NONE /LPF Urine Mucus NEGATIVE /LPF Urine Culture Indicated YES Urine Opiates Screen NEGATIVE NEGATIVE Urine Oxycodone Screen NEGATIVE NEGATIVE Urine Methadone Screen NEGATIVE NEGATIVE Urine Propoxyphene Screen NEGATIVE NEGATIVE Urine Barbiturates Screen NEGATIVE NEGATIVE Ur Tricyclic Antidepressants Screen NEGATIVE NEGATIVE Urine Phencyclidine Screen NEGATIVE NEGATIVE Urine Amphetamines Screen NEGATIVE NEGATIVE Urine Methamphetamines Screen NEGATIVE NEGATIVE Urine Benzodiazepines Screen NEGATIVE NEGATIVE Urine Cocaine Screen NEGATIVE NEGATIVE Urine Cannabinoids Screen NEGATIVE NEGATIVE White Blood Count 5.1 4.3-11.0 10^3/uL Red Blood Count 4.21 3.80-5.11 10^6/uL Hemoglobin 12.6 11.5-16.0 g/dL Hematocrit 38 35-52 % Mean Corpuscular Volume 89 80-99 fL Mean Corpuscular Hemoglobin 30 25-34 pg Mean Corpuscular Hemoglobin Concent 34 32-36 g/dL Red Cell Distribution Width 14.6 H 10.0-14.5 % Platelet Count 361 130-400 10^3/uL Mean Platelet Volume 10.3 9.0-12.2 fL Immature Granulocyte % (Auto) 1 % Neutrophils (%) (Auto) 44 42-75 % Lymphocytes (%) (Auto) 44 12-44 % Monocytes (%) (Auto) 9 0-12 % Eosinophils (%) (Auto) 1 0-10 % Basophils (%) (Auto) 1 0-10 % Neutrophils # (Auto) 2.2 1.8-7.8 10^3/uL Lymphocytes # (Auto) 2.3 1.0-4.0 10^3/uL Monocytes # (Auto) 0.5 0.0-1.0 10^3/uL Eosinophils # (Auto) 0.1 0.0-0.3 10^3/uL Basophils # (Auto) 0.0 0.0-0.1 10^3/uL Immature Granulocyte # (Auto) 0.0 0.0-0.1 10^3/uL Sodium Level 136 135-145 MMOL/L Potassium Level 4.2 3.6-5.0 MMOL/L Chloride Level 101 98-107 MMOL/L Carbon Dioxide Level 17 L 21-32 MMOL/L Anion Gap 18 H 5-14 MMOL/L Blood Urea Nitrogen 13 7-18 MG/DL Creatinine 1.22 0.60-1.30 MG/DL Estimat Glomerular Filtration Rate 66 BUN/Creatinine Ratio 11 Glucose Level 486 *H 70-105 MG/DL Lactic Acid Level 2.69 *H 0.50-2.00 MMOL/L Calcium Level 8.7 8.5-10.1 MG/DL Corrected Calcium 9.1 8.5-10.1 MG/DL Magnesium Level 2.1 1.6-2.4 MG/DL Total Bilirubin 0.3 0.1-1.0 MG/DL Aspartate Amino Transf (AST/SGOT) 67 H 5-34 U/L Alanine Aminotransferase (ALT/SGPT) 55 0-55 U/L Alkaline Phosphatase 178 H 40-136 U/L Total Protein 6.6 6.4-8.2 GM/DL Albumin 3.5 3.2-4.5 GM/DL Amylase Level 76 25-125 U/L Lipase 57 8-78 U/L Beta-Hydroxybutyrate (Chem panel) 2.16 H 0.00-0.27 MMOL/L Procalcitonin 0.17 H <0.10 NG/ML Influenza Type A (RT-PCR) Not Detected Not Detecte Influenza Type B (RT-PCR) Not Detected Not Detecte SARS-CoV-2 RNA (RT-PCR) Not Detected Not Detecte Test 02/16/22 01:44 02/16/22 02:04 02/16/22 02:48 02/16/22 03:35 Range/Units Blood Gas Puncture Site LRAD Blood Gas Patient Temperature 98.2 Arterial Blood pH 7.30 *L 7.37-7.43 Arterial Blood Partial Pressure CO2 39 35-45 MMHG Arterial Blood Partial Pressure O2 39 *L 79-93 MMHG Arterial Blood HCO3 18 L 23-27 MMOL/L Arterial Blood Total CO2 19.6 L 21.0-31.0 MMOL/L Arterial Blood Oxygen Saturation 67 L 94-100 % Arterial Blood Base Excess -6.9 L -2.5-2.5 MMOL/L Ajit Test YES-POS Blood Gas Ventilator Setting NO Blood Gas Inspired Oxygen RA Glucometer 375 H 256 H 70-110 MG/DL White Blood Count 6.2 4.3-11.0 10^3/uL Red Blood Count 3.56 L 3.80-5.11 10^6/uL Hemoglobin 10.6 L 11.5-16.0 g/dL Hematocrit 33 L 35-52 % Mean Corpuscular Volume 93 80-99 fL Mean Corpuscular Hemoglobin 30 25-34 pg Mean Corpuscular Hemoglobin Concent 32 32-36 g/dL Red Cell Distribution Width 14.6 H 10.0-14.5 % Platelet Count 301 130-400 10^3/uL Mean Platelet Volume 10.0 9.0-12.2 fL Immature Granulocyte % (Auto) 1 % Neutrophils (%) (Auto) 31 L 42-75 % Lymphocytes (%) (Auto) 57 H 12-44 % Monocytes (%) (Auto) 9 0-12 % Eosinophils (%) (Auto) 2 0-10 % Basophils (%) (Auto) 1 0-10 % Neutrophils # (Auto) 1.9 1.8-7.8 10^3/uL Lymphocytes # (Auto) 3.5 1.0-4.0 10^3/uL Monocytes # (Auto) 0.5 0.0-1.0 10^3/uL Eosinophils # (Auto) 0.1 0.0-0.3 10^3/uL Basophils # (Auto) 0.1 0.0-0.1 10^3/uL Immature Granulocyte # (Auto) 0.0 0.0-0.1 10^3/uL Sodium Level 137 135-145 MMOL/L Potassium Level 3.3 L 3.6-5.0 MMOL/L Chloride Level 106 98-107 MMOL/L Carbon Dioxide Level 11 L 21-32 MMOL/L Anion Gap 20 H 5-14 MMOL/L Blood Urea Nitrogen 13 7-18 MG/DL Creatinine 0.93 0.60-1.30 MG/DL Estimat Glomerular Filtration Rate 91 BUN/Creatinine Ratio 14 Glucose Level 204 H 70-105 MG/DL Lactic Acid Level 9.12 *H 0.50-2.00 MMOL/L Calcium Level 7.9 L 8.5-10.1 MG/DL Test 02/16/22 04:20 02/16/22 04:33 02/16/22 05:14 02/16/22 05:43 Range/Units Lactic Acid Level 8.94 *H 0.50-2.00 MMOL/L Glucometer 144 H 129 H 70-110 MG/DL Sodium Level 140 135-145 MMOL/L Potassium Level 2.8 L 3.6-5.0 MMOL/L Chloride Level 108 H 98-107 MMOL/L Carbon Dioxide Level 16 L 21-32 MMOL/L Anion Gap 16 H 5-14 MMOL/L Blood Urea Nitrogen 11 7-18 MG/DL Creatinine 0.80 0.60-1.30 MG/DL Estimat Glomerular Filtration Rate 109 BUN/Creatinine Ratio 14 Glucose Level 124 H 70-105 MG/DL Calcium Level 8.2 L 8.5-10.1 MG/DL Corrected Calcium 9.0 8.5-10.1 MG/DL Phosphorus Level 2.7 2.3-4.7 MG/DL Magnesium Level 1.7 1.6-2.4 MG/DL Total Bilirubin 0.1 0.1-1.0 MG/DL Aspartate Amino Transf (AST/SGOT) 52 H 5-34 U/L Alanine Aminotransferase (ALT/SGPT) 46 0-55 U/L Alkaline Phosphatase 152 H 40-136 U/L Total Protein 5.6 L 6.4-8.2 GM/DL Albumin 3.0 L 3.2-4.5 GM/DL Beta-Hydroxybutyrate (Chem panel) 0.21 0.00-0.27 MMOL/L Test 02/16/22 06:25 02/16/22 06:38 02/16/22 07:33 02/16/22 09:18 Range/Units Lactic Acid Level 3.60 *H 2.21 *H 0.50-2.00 MMOL/L Glucometer 143 H 148 H 70-110 MG/DL Sodium Level 138 135-145 MMOL/L Potassium Level 4.1 3.6-5.0 MMOL/L Chloride Level 108 H 98-107 MMOL/L Carbon Dioxide Level 17 L 21-32 MMOL/L Anion Gap 13 5-14 MMOL/L Blood Urea Nitrogen 11 7-18 MG/DL Creatinine 0.64 0.60-1.30 MG/DL Estimat Glomerular Filtration Rate 130 BUN/Creatinine Ratio 17 Glucose Level 106 H 70-105 MG/DL Calcium Level 8.3 L 8.5-10.1 MG/DL Test 02/16/22 10:55 02/16/22 11:50 02/16/22 13:45 02/16/22 14:33 Range/Units Glucometer 191 H 53 *L 70-110 MG/DL Lactic Acid Level 5.52 *H 2.26 *H 0.50-2.00 MMOL/L Test 02/16/22 15:04 02/16/22 15:40 02/16/22 15:41 Range/Units Glucometer 99 86 70-110 MG/DL Sodium Level 138 135-145 MMOL/L Potassium Level 4.3 3.6-5.0 MMOL/L Chloride Level 103 98-107 MMOL/L Carbon Dioxide Level 21 21-32 MMOL/L Anion Gap 14 5-14 MMOL/L Blood Urea Nitrogen 11 7-18 MG/DL Creatinine 0.72 0.60-1.30 MG/DL Estimat Glomerular Filtration Rate 123 BUN/Creatinine Ratio 15 Glucose Level 86 70-105 MG/DL Lactic Acid Level 2.84 *H 0.50-2.00 MMOL/L Calcium Level 8.8 8.5-10.1 MG/DL Physical Exam-([facility]) Physical Exam Vital Signs VS - Last 72 Hours, by Label 02/15/22 02/16/22 02/16/22 02/16/22 23:39 01:46 02:40 02:45 Temp 36.8 36.1 Pulse 120 96 93 Resp 18 20 19 B/P (MAP) 119/67 (84) 119/67 123/91 129/90 Pulse Ox 100 100 O2 Delivery Room Air Room Air 02/16/22 02/16/22 02/16/22 02/16/22 02:50 02:58 03:00 03:15 Pulse 100 105 89 Resp 19 19 B/P (MAP) 126/87 Pulse Ox 100 100 O2 Delivery Room Air Room Air Room Air 02/16/22 02/16/22 02/16/22 02/16/22 03:30 03:45 04:00 04:01 Temp 36.7 Pulse 90 87 95 Resp 19 19 16 B/P (MAP) 126/85 124/81 127/80 Pulse Ox 100 100 100 O2 Delivery Room Air Room Air Room Air 02/16/22 02/16/22 02/16/22 02/16/22 05:00 06:00 07:00 07:00 Pulse 99 100 91 88 Resp 17 17 15 B/P (MAP) 130/93 108/58 117/67 Pulse Ox 100 99 99 O2 Delivery Room Air Room Air Room Air 02/16/22 02/16/22 02/16/22 02/16/22 08:00 08:00 09:00 10:00 Temp 36.1 Pulse 81 102 83 Resp 15 12 8 B/P (MAP) 105/65 115/76 114/78 Pulse Ox 99 100 100 O2 Delivery Room Air Room Air Room Air 02/16/22 02/16/22 02/16/22 02/16/22 11:00 12:00 13:00 13:00 Pulse 88 92 116 115 Resp 12 16 11 B/P (MAP) 118/89 126/89 115/93 Pulse Ox 100 99 100 O2 Delivery Room Air Room Air Room Air 02/16/22 02/16/22 14:00 15:00 Pulse 102 101 Resp 12 26 B/P (MAP) 116/78 115/80 Pulse Ox 100 100 O2 Delivery Room Air Room Air Capillary Refill : General Appearance: WD/WN, no apparent distress HEENT: PERRL/EOMI Neck: non-tender, full range of motion, supple Respiratory: chest non-tender, lungs clear, normal breath sounds, no respiratory distress, no accessory muscle use Cardiovascular: normal peripheral pulses, regular rate, rhythm, no edema, no murmur Gastrointestinal: normal bowel sounds, non tender, soft Back: no CVA tenderness, decreased range of motion (do to lower back pain), m uscle spasm Extremities: normal range of motion, non-tender, no pedal edema, no calf tenderness, normal capillary refill Neurologic/Psychiatric: salt washer II-XII nml as tested, no motor/sensory deficits, alert, normal mood/affect, oriented x 3 Skin: normal color, warm/dry Lymphatic: no adenopathy Short Stay Diagnosis Discharge Diagnosis-Short Stay Admission Diagnosis See problem list Final Discharge Diagnosis See problem list Conclusion Plan See problem list Assessment/Plan Assessment/Plan Admission Status: Observation (1) Back pain Status: Acute Assessment & Plan: - States that she has had imaging and has appt with a spine clinic, appt was today but she is going to reschedule, discussed gentle stretching, NSAIDs Qualifiers: Qualified Codes: M54.50 - Low back pain, unspecified (2) Type 1 diabetes mellitus Status: Chronic Assessment & Plan: - Insulin gtts, transitioned to subcutaneous insulin, acidosis resolved and patient eager to leave Qualifiers: Qualified Codes: E10.65 - Type 1 diabetes mellitus with hyperglycemia (3) DKA (diabetic ketoacidosis) Status: Acute Qualifiers: Qualified Codes: E10.10 - Type 1 diabetes mellitus with ketoacidosis without coma (4) UTI (urinary tract infection) Status: Acute Assessment & Plan: - Will f.u on culture, PO antibiotics sent to finish as outpatient Qualifiers: Qualified Codes: N30.00 - Acute cystitis without hematuria JOSE ESPOSITO MD Feb 16, 2022 16:27
[2022-02-16] MEDS ORDERED: CEPH500T PO (16:32)
--- NOTE | 2022-02-16 16:32 | Discharge Summary ---
Discharge [facility] Reconcile Patient Problems Problems Reviewed?: Yes Discharge Medications New, Converted or Re-Newed RX: Transmitted to Pharmacy New Medications: Cephalexin (Cephalexin) 500 Mg Tablet 500 MG PO BID for 3 Days, #6 TAB Continued Medications: Acetaminophen (Tylenol Extra Strength) 500 Mg Tablet 1000 MG PO Q8H PRN for PAIN-MILD (1-4), TAB Ibuprofen (Ibuprofen) 200 Mg Tablet 400-600 MG PO Q8H PRN for PAIN-MILD (1-4), TAB Insulin Aspart (Insulin Aspart Flexpen) 100 Unit/1 Ml Insuln.pen UNIT SQ AC, EA USES PER SLIDING SCALE Insulin Glargine,Hum.rec.anlog (Lantus Solostar) 100 Unit/1 Ml Insuln.pen 40 UNIT SQ HS, EA LAST FILLED 10-16-2021 #7 PENS/28 SAY SUPPLY Insulin Glargine,Hum.rec.anlog (Lantus Solostar) 100 Unit/1 Ml Insuln.pen 35 UNIT SQ DAILY, EA LAST FILLED 10-16-2021 #7 PENS/28 SAY SUPPLY Patient Instructions Goal/Follow Up Appt: F.u 1-2 weeks with PCP Activity & Diet Discharge Diet: ADA Diet Activity as Tolerated: Yes JOSE OKEEFE MD Feb 16, 2022 16:31
[2022-02-16] MEDS ORDERED: cefTRIAXone 1 GM IV (PRE-MIX) 50 ML IV SCH (21:00)
== END 2022-02-16 17:30 | disposition home or self-care (01) | DRG 638 ==
LOC: EDUNIT# 23:25 → ER 23:31 → ICU 02-16 01:55
PROVIDERS: ADMIT Family Medicine; ATTEND Family Medicine
DX: E10.10 Type 1 diabetes mellitus with ketoacidosis without coma (principal); N39.0 Urinary tract infection, site not specified; F32.A Depression, unspecified; M54.50 Low back pain, unspecified; Z79.4 Long term (current) use of insulin; F12.90 Cannabis use, unspecified, uncomplicated; F41.9 Anxiety disorder, unspecified; Z20.822 Contact with and (suspected) exposure to COVID-19
CPT/HCPCS: 36415; 72128; 72131; 80048; 80053; 80306; 81000; 82010; 82150; 82805; 82947; 83036; 83605; 83690; 83735; 84100; 84145; 84703; 85025; 87040; 87077; 87081; 87088; 87636; G0378

== ENCOUNTER 2022-03-26 01:22 | Inpatient (IN) | payer BC, MEDICAID ==
[~2022-03-26] VITALS: Ht 175.3 cm; Wt 76.4 kg
[2022-03-26] VITALS (16 sets, daily range): BP systolic 103–129; BP diastolic 71–98
[2022-03-26] MEDS ORDERED: ONDANSETRON 4 MG/2 ML (SDV) Z0FRAN IVP ONE (01:45)
[2022-03-26] MEDS ORDERED: NS IV 1000 ML 1,000 ML IV SCH ×3 (01:45→09:00)
--- NOTE | 2022-03-26 01:45 | ED General ---
General Chief Complaint: Glucose Problems Stated Complaint: HIGH BLOOD SUGAR Source of Information: Patient, Old Records History of Present Illness Date Seen by Provider: Mar 26, 2022 Time Seen by Provider: 01:33 Initial Comments PT ARRIVES VIA POV FROM HOME C/O ELEVATED BLOOD SUGAR FOR THE LAST COUPLE OF DAYS STATES BLOOD SUGAR HAS BEEN "REALLY, REALLY HIGH--500+" TO "MID TO LOWER 200'S" "THEN AFTER A COUPLE OF HOURS IT GOES RIGHT BACK UP" STATES SHE "HASN'T FELT GOOD" FOR THE LAST COUPLE OF DAYS WITH : -HEADACHE -NAUSEA, NO VOMITING AT ANY TIME -DIARRHEA COUPLE OF TIMES -FATIGUE -MILD BODY ACHES NO URINARY SYMPTOMS AND IS VOIDING A NORMAL AMOUNT--CLAIMS NO FREQUENCY OR DECREASED OUTPUT NO FEVER/SWEATS/CHILLS NO RESPIRATORY SYMPTOMS NO SORE THROAT NO ABDOMINAL PAIN STATE SHE ATE PIZZA, A SANDWICH, AND SAUSAGE AND EGGS TODAY AND KEPT THEM ALL DOWN HAS BEEN DRINKING FLUIDS AND KEEPING THEM DOWN HAS NOT SOUGHT CARE UNTIL TONIGHT SYMPTOMS NO DIFFERENT TONIGHT HAS NOT TAKEN ANYTHING FOR SYMPTOMS PT HAS HAD COVID-19 VACCINE X 2--LAST ONE GREATER THAN A YEAR AGO. LMP 03/17/22. NORMAL. ON OCP'S PT IS TYPE 1 DIABETIC, WITH A MULTITUDE OF VISITS HERE FOR DKA AND ELEVATED BLOOD SUGARS/DIABETIC RELATED COMPLAINTS. LAST ADMIT WAS 02/16/22 FOR DKA PCP: PHIL LAMBERT Allergies and Home Medications Allergies Coded Allergies: bismuth subsalicylate (Verified Allergy, Unknown, 10/27/21) Patient Home Medication List Home Medication List Reviewed: Yes Acetaminophen (Tylenol Extra Strength) 500 Mg Tablet, 1,000 MG PO Q8H PRN for PAIN-MILD (1-4), (Reported) Entered as Reported by: COLT BOURNE on 02/16/22 1100 Cephalexin (Cephalexin) 500 Mg Tablet, 500 MG PO BID Prescribed by: JOSE OKEEFE on 02/16/22 1632 Ibuprofen (Ibuprofen) 200 Mg Tablet, 400-600 MG PO Q8H PRN for PAIN-MILD (1-4), (Reported) Entered as Reported by: COLT BOURNE on 11/21/21 1006 Insulin Aspart (Insulin Aspart Flexpen) 100 Unit/1 Ml Insuln.pen, UNIT SQ AC, (Reported) Entered as Reported by: COLT BOURNE on 11/21/21 1006 Insulin Glargine,Hum.rec.anlog (Lantus Solostar) 100 Unit/1 Ml Insuln.pen, 40 UNIT SQ HS, (Reported) Entered as Reported by: COLT BOURNE on 07/25/21 0936 Insulin Glargine,Hum.rec.anlog (Lantus Solostar) 100 Unit/1 Ml Insuln.pen, 35 UNIT SQ DAILY, (Reported) Entered as Reported by: COLT BOURNE on 07/25/21 0936 Review of Systems Review of Systems Constitutional: see HPI; No chills, No diaphoresis, No dizziness, No fever; malaise EENTM: no symptoms reported Respiratory: no symptoms reported; No cough, No short of breath Cardiovascular: no symptoms reported Gastrointestinal: see HPI; No abdominal pain; diarrhea; No loss of appetite; nausea; No vomiting Genitourinary: no symptoms reported Musculoskeletal: no symptoms reported Skin: no symptoms reported Psychiatric/Neurological: See HPI, Headache Past Kkvtgvp-Xowkwp-Flzenl Hx Patient Social History Tobacco Use?: No Substance use?: Yes Substance type: Marijuana Alcohol Use?: Yes Alcohol Frequency: Once in a while Immunizations Up To Date Tetanus Booster (TDap): Less than 5yrs PED Vaccines UTD: Yes First/Initial COVID19 Vaccinat: APR 2021 Second COVID19 Vaccination [place]: MAY 2021 Third COVID19 Vaccination Date: NONE Seasonal Allergies Seasonal Allergies: No Past Medical History Surgery/Hospitalization HX: 08/2021--TRANSFERRED FROM [facility] TO [facility] IN FOR DKA AND CANNIBIS HYPEREMESIS DM Surgeries: No Respiratory: No Currently Using CPAP: No Currently Using BIPAP: No Cardiac: Yes (TACHYCARDIA) Palpitations Neurological: No Last Menstrual Period: Mar 17, 2022 Reproductive Disorders: No Female Reproductive Disorders: Denies Sexually Transmitted Disease: No HIV/AIDS: No Genitourinary: Yes Bladder Infection Gastrointestinal: Yes (CANNABIS HYPEREMESIS; CHRONIC 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 DX AGE 12) Diabetes, Insulin dep HEENT: No Loss of Vision: Denies Hearing Impairment: Denies Cancer: No Psychosocial: Yes Anxiety, Depression Integumentary: No Blood Disorders: No Adverse Reaction/Blood Tranf: No Family Medical History No Pertinent Family Hx Physical Exam Vital Signs Vital Signs - First Documented Capillary Refill : Height, Weight, BMI Height: 5'9.00" Weight: 255lbs. 0oz. 115.872564vn; 22.71 BMI Method:Stated General Appearance: No Apparent Distress, WD/WN, Other (DOES NOT APPEAR ILL OR TO BE IN ANY DISCOMFORT OR DISTRESS. WALKS AND MOVES WITHOUT DIFFICULTY) HEENT: PERRL/EOMI, TMs Normal, Other (ORAL MUCOSA DRY) Neck: Normal Inspection Respiratory: Normal Breath Sounds, No Accessory Muscle Use, No Respiratory Distress Cardiovascular: Regular Rate, Rhythm, No Edema, No JVD, No Murmur, Normal Peripheral Pulses Gastrointestinal: Normal Bowel Sounds, No Organomegaly, Non Tender, Soft Back: No CVA Tenderness Extremity: Normal Capillary Refill, Normal Inspection, No Pedal Edema Neurologic/Psychiatric: Alert, Oriented x3, No Motor/Sensory Deficits, Normal Mood/Affect, traffic rate computer II-XII Norm as Tested Skin: Normal Color, Warm/Dry Focused Exam Lactate Level 03/26/22 01:50: Lactic Acid Level 4.45*H Lactic Acid Level Laboratory Tests Test 03/26/22 01:50 Lactic Acid Level 4.45 MMOL/L (0.50-2.00) *H Procedures/Interventions Date of ETT Placement: Feb 18, 2021 Time of ETT Placement: 1432 Progress/Results/Core Measures Suspected Sepsis SIRS Temperature: Pulse: Respiratory Rate: Laboratory Tests 03/26/22 01:50: White Blood Count 5.2 Blood Pressure / Mean: 03/26/22 01:50: Lactic Acid Level 4.45*H Laboratory Tests 03/26/22 01:50: Creatinine 1.10, Platelet Count 327, Total Bilirubin 0.4 Results/Orders Lab Results Laboratory Tests Test 03/26/22 01:32 03/26/22 01:37 03/26/22 01:38 03/26/22 01:50 Range/Units Glucometer 399 H 70-110 MG/DL SARS-CoV-2 RNA (RT-PCR) Not Detected Not Detecte Urine Color YELLOW Urine Clarity SL CLOUDY Urine pH 6.0 5-9 Urine Specific [place] 1.025 H 1.016-1.022 Urine Protein NEGATIVE NEGATIVE Urine Glucose (UA) 3+ H NEGATIVE Urine Ketones 1+ H NEGATIVE Urine Nitrite NEGATIVE NEGATIVE Urine Bilirubin 1+ H NEGATIVE Urine Urobilinogen 0.2 < = 1.0 MG/DL Urine Leukocyte Esterase NEGATIVE NEGATIVE Urine RBC (Auto) 3+ H NEGATIVE Urine RBC 50-100 H /HPF Urine WBC RARE /HPF Urine Squamous Epithelial Cells RARE /HPF Urine Crystals NONE /LPF Urine Bacteria TRACE /HPF Urine Casts NONE /LPF Urine Mucus NEGATIVE /LPF Urine Culture Indicated NO Urine Opiates Screen NEGATIVE NEGATIVE Urine Oxycodone Screen NEGATIVE NEGATIVE Urine Methadone Screen NEGATIVE NEGATIVE Urine Propoxyphene Screen NEGATIVE NEGATIVE Urine Barbiturates Screen NEGATIVE NEGATIVE Ur Tricyclic Antidepressants Screen NEGATIVE NEGATIVE Urine Phencyclidine Screen NEGATIVE NEGATIVE Urine Amphetamines Screen NEGATIVE NEGATIVE Urine Methamphetamines Screen NEGATIVE NEGATIVE Urine Benzodiazepines Screen NEGATIVE NEGATIVE Urine Cocaine Screen NEGATIVE NEGATIVE Urine Cannabinoids Screen NEGATIVE NEGATIVE White Blood Count 5.2 4.3-11.0 10^3/uL Red Blood Count 3.96 3.80-5.11 10^6/uL Hemoglobin 11.9 11.5-16.0 g/dL Hematocrit 36 35-52 % Mean Corpuscular Volume 92 80-99 fL Mean Corpuscular Hemoglobin 30 25-34 pg Mean Corpuscular Hemoglobin Concent 33 32-36 g/dL Red Cell Distribution Width 14.2 10.0-14.5 % Platelet Count 327 130-400 10^3/uL Mean Platelet Volume 9.9 9.0-12.2 fL Immature Granulocyte % (Auto) 0 % Neutrophils (%) (Auto) 46 42-75 % Lymphocytes (%) (Auto) 42 12-44 % Monocytes (%) (Auto) 9 0-12 % Eosinophils (%) (Auto) 2 0-10 % Basophils (%) (Auto) 1 0-10 % Neutrophils # (Auto) 2.4 1.8-7.8 10^3/uL Lymphocytes # (Auto) 2.2 1.0-4.0 10^3/uL Monocytes # (Auto) 0.5 0.0-1.0 10^3/uL Eosinophils # (Auto) 0.1 0.0-0.3 10^3/uL Basophils # (Auto) 0.0 0.0-0.1 10^3/uL Immature Granulocyte # (Auto) 0.0 0.0-0.1 10^3/uL Sodium Level 137 135-145 MMOL/L Potassium Level 4.1 3.6-5.0 MMOL/L Chloride Level 100 98-107 MMOL/L Carbon Dioxide Level 18 L 21-32 MMOL/L Anion Gap 19 H 5-14 MMOL/L Blood Urea Nitrogen 12 7-18 MG/DL Creatinine 1.10 0.60-1.30 MG/DL Estimat Glomerular Filtration Rate 74 BUN/Creatinine Ratio 11 Glucose Level 325 H 70-105 MG/DL Lactic Acid Level 4.45 *H 0.50-2.00 MMOL/L Calcium Level 9.2 8.5-10.1 MG/DL Corrected Calcium 9.4 8.5-10.1 MG/DL Magnesium Level 1.8 1.6-2.4 MG/DL Total Bilirubin 0.4 0.1-1.0 MG/DL Aspartate Amino Transf (AST/SGOT) 157 H 5-34 U/L Alanine Aminotransferase (ALT/SGPT) 123 H 0-55 U/L Alkaline Phosphatase 192 H 40-136 U/L Total Protein 6.6 6.4-8.2 GM/DL Albumin 3.7 3.2-4.5 GM/DL Amylase Level 73 25-125 U/L Lipase 44 8-78 U/L Beta-Hydroxybutyrate (Chem panel) 2.28 H 0.00-0.27 MMOL/L My Orders Orders - LADONNA RANGEL DO Accucheck Stat ONCE (03/26/22 01:33) Ed Iv/Invasive Line Start (03/26/22 01:37) Urine Bedside (03/26/22 01:37) Monitor-Rhythm Ecg Trace Only (03/26/22:37) Amylase (03/26/22:37) Cbc With Automated Diff (03/26/22 01:37) Comprehensive Metabolic Panel (03/26/22 01:37) Drug Screen Stat (Urine) (03/26/22 01:37) Lipase (03/26/22 01:37) Magnesium (03/26/22:37) Ua Culture If Indicated (03/26/22 01:37) Ed Iv/Invasive Line Start (03/26/22 01:37) Ns Iv 1000 Ml (Sodium Chloride 0.9%) (03/26/22 01:45) Ondansetron Injection (Zofran Injectio (03/26/22 01:45) Covid 19 Inhouse Test (03/26/22 01:37) Isolation Central Supply Req (03/26/22 01:37) Beta Hydroxybutyrate (03/26/22 01:37) Hemoglobin A1c (03/26/22 01:37) Lactic Acid Analyzer (03/26/22 01:48) Insulin (Regular) Human (Novolin R (Per (03/26/22 02:30) Medications Given in ED Current Medications Medications Dose Ordered Sig/Thierno Route Start Time Stop Time Status Last Admin Dose Admin Ondansetron HCl 4 mg ONCE ONCE IVP 03/26/22 01:45 03/26/22 01:46 DC 03/26/22 01:51 4 MG Vital Signs/I&O 03/26/22 03/26/22 01:31 01:31 Temp 36.8 Pulse 106 Resp 20 B/P (MAP) 137/89 (105) Pulse Ox 100 O2 Delivery Room Air Room Air Capillary Refill : Point of Care Testing Finger Stick Blood Glucose: 399 Blood Glucose Action Taken: DR. RANGEL NOTIFIED. Progress Note : Progress Note ACCUCHECK 399 ON ARRIVAL PPE WORN COVID TESTING DONE GIVEN: -IV FLUIDS -ZOFRAN -INSULIN NO VOMITING, NAUSEA RESOLVED NO DIARRHEA DURING ER STAY PT TEXTING/PLAYING/TALKING ON PHONE THROUGHOUT ER STAY PT IS SYMPTOM-FREE AT TIME OF ADMIT. Departure Communication (Admissions) 1670--SPOKE WITH DR. SMYTH, HOSPITALIST FOR [facility]. ACCEPTS PT FOR ADMIT Impression Primary Impression: MILD DKA Additional Impressions: Type 1 diabetes mellitus Elevated liver enzymes Disposition: ADMITTED INPATIENT Condition: Improved Admissions Decision to Admit Reason: Admit from ER (General) Decision to Admit/Date: Mar 26, 2022 Time/Decision to Admit Time: 02:30 Departure-Patient Inst. Referrals: COLT LAMBERT DO (PCP/Family) Primary Care Physician LADONNA RANGEL DO Mar 26, 2022 01:45
[2022-03-26 01:51] LABS: BILIRUBIN,URINE 1+ (NEGATIVE); CLARITY,URINE SL CLOUDY; COLOR,URINE YELLOW; GLUCOSE, URINE (UA) 3+ (NEGATIVE); KETONES,URINE 1+ (NEGATIVE); LEUKOCYTE ESTERASE ,URINE NEGATIVE (NEGATIVE); NITRITE,URINE NEGATIVE (NEGATIVE); PROTEIN,URINE NEGATIVE (NEGATIVE)
[2022-03-26 02:00] LABS: BASOPHILS % (AUTO) 1 % (0-10); EOSINOPHILS # (AUTO) 0.1 10^3/uL (0.0-0.3); EOSINOPHILS % (AUTO) 2 % (0-10); HEMATOCRIT 36 % (35-52); HEMOGLOBIN 11.9 g/dL (11.5-16.0); LYMPHOCYTES # (AUTO) 2.2 10^3/uL (1.0-4.0); LYMPHOCYTES % (AUTO) 42 % (12-44); MEAN CORPUSCULAR HEMOGLOBIN 30 pg (25-34); MEAN CORPUSCULAR HGB CONC 33 g/dL (32-36); MEAN CORPUSCULAR VOLUME 92 fL (80-99); MEAN PLATELET VOLUME 9.9 fL (9.0-12.2); MONOCYTES # (AUTO) 0.5 10^3/uL (0.0-1.0); MONOCYTES % (AUTO) 9 % (0-12); NEUTROPHILS # (AUTO) 2.4 10^3/uL (1.8-7.8); NEUTROPHILS % (AUTO) 46 % (42-75); PLATELET COUNT 327 10^3/uL (130-400); WHITE BLOOD COUNT 5.2 10^3/uL (4.3-11.0)
[2022-03-26 02:09] LABS: AMPHETAMINE SCREEN, URINE NEGATIVE (NEGATIVE); BARBITURATE SCREEN URINE NEGATIVE (NEGATIVE); BENZODIAZEPINES SCREEN URINE NEGATIVE (NEGATIVE); CANNABINOID SCREEN, URINE NEGATIVE (NEGATIVE); COCAINE SCREEN URINE NEGATIVE (NEGATIVE); METHADONE STAT NEGATIVE (NEGATIVE); OPIATE SCREEN URINE NEGATIVE (NEGATIVE); OXYCODONE STAT NEGATIVE (NEGATIVE); PROPOXYPHENE STAT NEGATIVE (NEGATIVE); TRICYCLIC ANTIDEPRESSANTS SCRE NEGATIVE (NEGATIVE)
[2022-03-26 02:11] LABS: BACTERIA,URINE TRACE /HPF; RBC,URINE 50-100 /HPF; SQUAMOUS EPITHELIAL CELL,UR RARE /HPF; WBC,URINE RARE /HPF
[2022-03-26 02:14] LABS: ALBUMIN 3.7 GM/DL (3.2-4.5); POTASSIUM 4.1 MMOL/L (3.6-5.0)
[2022-03-26 02:15] LABS: CALCIUM 9.2 MG/DL (8.5-10.1)
[2022-03-26 02:16] LABS: TOTAL PROTEIN 6.6 GM/DL (6.4-8.2)
[2022-03-26 02:18] LABS: BILIRUBIN,TOTAL 0.4 MG/DL (0.1-1.0)
[2022-03-26 02:20] LABS: CREATININE SERUM 1.1 MG/DL (0.60-1.30)
[2022-03-26 02:23] LABS: MAGNESIUM 1.8 MG/DL (1.6-2.4)
[2022-03-26] MEDS ORDERED: inSUlin (REGULAR) HUMAN 1 UNIT/0.01 ML (CHARGE PER UNIT) SC ONE (02:30)
[2022-03-26] MEDS ORDERED: inSUlin (REGULAR) HUMAN 1 UNIT/0.01 ML (CHARGE PER UNIT) IV ONE (02:45)
[2022-03-26] MEDS ORDERED: ACETAMINOPHEN 500 MG TAB (TYLENOL) PO PRN (03:15)
[2022-03-26] MEDS ORDERED: ONDANSETRON 4 MG/2 ML (SDV) Z0FRAN IV PRN ×2 (03:15→09:00)
[2022-03-26] MEDS ORDERED: NS IV 1000 ML 1,000 ML ONE (03:29)
[2022-03-26] MEDS: NS IV 1000 ML 1,000 ML IV SCH ×2 (03:31→07:36)
[2022-03-26] MEDS ORDERED: inSUlin ASPART (NovoLOG) 1 UNIT/0.01 ML (CHARGE PER UNIT) SC SCH (06:00)
--- NOTE | 2022-03-26 06:47 | History & Physical-Hospitalist ---
History of Present Illness HPI/Chief Complaint CC: DKA HPI: This is a 21yoWF [facility] patient who presented to the ER with nausea and was found to have early DKA not requiring an insulin drip but she had progressed to DKA this am requiring transfer to ICU on insulin drip. Patient is here frequently for DKA's. Source: patient Exam Limitations: no limitations Date Seen 03/26/22 Time Seen by a Provider: 11:00 Attending Physician Carlos Lyn DO PCP Admitting Physician: Patito Diamond DO Attending Physician: Patito Diamond DO Referring Physician Date of Admission Mar 26, 2022 at 02:30 Home Medications & Allergies Home Medications Reviewed patient Home Medication Reconciliation performed by pharmacy medication reconciliations farm equipment technician and/or nursing. Patients Allergies have been reviewed. Allergies Allergies Coded Allergies bismuth subsalicylate (Verified Allergy, Unknown, 10/27/21) Past Tytbtke-Yfbmpm-Olqdee Hx Patient Social History Marrital Status: single Employed/Student: unemployed Tobacco Use?: Yes Smoking Status: Current Everyday Smoker Use of E-Cig and/or Vaping dev: Yes E-Cig or Vaping type used: Nicotine Use of E-Cig and/or Vaping Tom: Current Everyday User Substance use?: No Substance type: Marijuana Alcohol Use?: No Alcohol Frequency: Once in a while Pt feels they are or have been: No Immunizations Up To Date Date of Influenza Vaccine: Jul 03, 2021 First/Initial COVID19 Vaccinat: APR 2021 Second COVID19 Vaccination [place]: MAY 2021 Tetanus Booster (TDap): Unknown Hepatitis A: Yes Hepatitis B: Yes PED Vaccines UTD: Yes Seasonal Allergies Seasonal Allergies: No Current Status status: No status: No Advance Directives: No Communicates: Verbally Primary Language: Tuvaluan Preferred Spoken Language: Tuvaluan Is interpretation needed?: No Implanted or Applied Medical D: None Past Medical History Currently Using CPAP: No Currently Using BIPAP: No Palpitations Sexually Transmitted Disease: No HIV/AIDS: No Bladder Infection Diabetes, Insulin dep Loss of Vision: Denies Hearing Impairment: Denies Anxiety, Depression Blood Disorders: No Adverse Reaction/Blood Tranf: No Type I DM Depression Family Medical History No Pertinent Family Hx Review of Systems Constitutional: see HPI Physical Exam Physical Exam Vital Signs Vital Signs - First Documented Capillary Refill : Less Than 3 Seconds Height, Weight, BMI Height: 5'9.00" Weight: 255lbs. 0oz. 115.387440rm; 24.86 BMI Method:Stated General Appearance: No Apparent Distress, Chronically ill Eyes: Right Eye Normal Inspection, Right Eye PERRL HEENT: PERRL/EOMI, Normal ENT Inspection, Pharynx Normal, Moist Mucous Membranes Neck: Full Range of Motion, Normal Inspection, Non Tender Respiratory: Chest Non Tender, Lungs Clear, Normal Breath Sounds, No Accessory Muscle Use, No Respiratory Distress Cardiovascular: Regular Rate, Rhythm, No Edema, No Gallop, No JVD, No Murmur, Normal Peripheral Pulses Gastrointestinal: Normal Bowel Sounds, No Organomegaly, No Pulsatile Mass, Non Tender, Soft Back: Normal Inspection, No CVA Tenderness, No Vertebral Tenderness Extremity: Normal Capillary Refill, Normal Inspection, Normal Range of Motion, Non Tender, No Calf Tenderness, No Pedal Edema Neurologic/Psychiatric: Alert, Oriented x3, No Motor/Sensory Deficits, Normal Mood/Affect Skin: Normal Color, Warm/Dry Lymphatic: No Adenopathy Results Results/Procedures Labs Laboratory Tests 03/26/22 01:50 03/26/22 07:18 03/26/22 12:11 03/26/22 16:25 Patient resulted labs reviewed. Assessment/Plan Admission Diagnosis Assessment: DKA Elevated liver enzymes Plan: Insulin drip Admission Status: Inpatient Order (span 2 midnights) Reason for Inpatient Admission: dka Diagnosis/Problems Diagnosis/Problems (1) DKA, type 1 Status: Acute (2) Elevated liver enzymes Status: Acute PATITO DIAMOND DO Mar 26, 2022 06:47
[2022-03-26 07:28] LABS: BASOPHILS % (AUTO) 1 % (0-10); EOSINOPHILS # (AUTO) 0.1 10^3/uL (0.0-0.3); EOSINOPHILS % (AUTO) 2 % (0-10); HEMATOCRIT 32 % (35-52); HEMOGLOBIN 10.5 g/dL (11.5-16.0); LYMPHOCYTES # (AUTO) 2.6 10^3/uL (1.0-4.0); LYMPHOCYTES % (AUTO) 57 % (12-44); MEAN CORPUSCULAR HEMOGLOBIN 30 pg (25-34); MEAN CORPUSCULAR HGB CONC 32 g/dL (32-36); MEAN CORPUSCULAR VOLUME 93 fL (80-99); MONOCYTES # (AUTO) 0.4 10^3/uL (0.0-1.0); MONOCYTES % (AUTO) 9 % (0-12); NEUTROPHILS # (AUTO) 1.4 10^3/uL (1.8-7.8); NEUTROPHILS % (AUTO) 30 % (42-75); PLATELET COUNT 276 10^3/uL (130-400); WHITE BLOOD COUNT 4.5 10^3/uL (4.3-11.0)
[2022-03-26 07:37] LABS: ALBUMIN 2.9 GM/DL (3.2-4.5); POTASSIUM 3.7 MMOL/L (3.6-5.0)
[2022-03-26 07:39] LABS: CALCIUM 7.8 MG/DL (8.5-10.1)
[2022-03-26 07:40] LABS: TOTAL PROTEIN 5.3 GM/DL (6.4-8.2)
[2022-03-26 07:42] LABS: BILIRUBIN,TOTAL 0.4 MG/DL (0.1-1.0)
[2022-03-26 07:43] LABS: CREATININE SERUM 0.78 MG/DL (0.60-1.30)
[2022-03-26] MEDS: PANTOPRAZOLE 40 MG (PROTONIX) VIAL IV SCH (08:35)
[2022-03-26] MEDS ORDERED: ANTACID SUSP 30 ML UDC (MYLANTA) PO PRN (09:00)
[2022-03-26] MEDS ORDERED: MELATONIN 3 MG TABLET PO PRN (09:00)
[2022-03-26] MEDS ORDERED: ACETAMINOPHEN 325 MG TABLET PO PRN (09:00)
[2022-03-26] MEDS ORDERED: polyethylene glycoL POWDER 17 GM (MIRALAX) PACK PO PRN (09:00)
[2022-03-26] MEDS ORDERED: LACTULOSE SYRUP 10GM/15ML (ENULOSE) 30ML UDC PO PRN (09:00)
[2022-03-26] MEDS ORDERED: ONDANSETRON 4 MG (ZOFRAN) ORAL DISSOLVE TAB PO PRN (09:00)
[2022-03-26] MEDS ORDERED: diphenhydrAMINE 50 MG/ML INJ (BENADRYL) IVP PRN (09:00)
[2022-03-26] MEDS ORDERED: BISACODYL 10 MG SUPP (DULCOLAX) PR PRN (09:00)
[2022-03-26] MEDS ORDERED: CALCIUM CARBONATE 500 MG (TUMS) TAB.CHEW PO PRN (09:00)
[2022-03-26] MEDS ORDERED: MILK OF MAGNESIA 400 MG/5 ML 30 ML UDC PO PRN (09:00)
[2022-03-26] MEDS ORDERED: diphenhydrAMINE 25 MG TAB (BENADRYL) PO PRN (09:00)
[2022-03-26] MEDS ORDERED: morphine INJ 4 MG/ML 1 ML (VIAL/SYRINGE) IV PRN (09:00)
[2022-03-26] MEDS: DOCUSATE SODIUM 100 MG (COLACE) CAP PO SCH (10:03)
[2022-03-26] MEDS: D5 1/2 NS 1000 ML IV SOLUTION 1,000 ML IV SCH ×3 (10:03→21:23)
[2022-03-26] MEDS: SENNOSIDES 8.6 MG (SENOKOT) TAB PO SCH (10:03)
[2022-03-26] MEDS: 1/2 NS IV SOLUTION 1,000 ML IV SCH ×3 (10:04→16:51)
[2022-03-26] MEDS: ENOXAPARIN 40 MG/0.4 ML (LOVENOX) SYR SC SCH (10:08)
--- NOTE | 2022-03-26 10:21 | Tele-ICU Progress Note ---
Subjective Date Seen by a Provider: Mar 26, 2022 Time Seen by a Provider: 10:08 Subjective/Events-last exam This virtual visit was conducted using real time audio/video. Thank you for asking us to see this patient for DKA Recent events: PMH:DM1, multiple DKA admissions. SH: smoking history: vaping and cannabis. ROS: as in HPI PE: Appears comfortable on camera. VSS. O2 sat 100% on RA. HEENT: No obvious masses, adenopathy or JVD. Chest: clear to auscultation. CV: RRR S1 S2 No murmur or added sounds. Abd: Non-tender. Bowel sounds Y. : Unremarkable. Jeffries N. ART GALLERY DIRECTOR/psychiatric: Grossly intact. No obvious focal findings. Extremities: No edema. Capillary refill < 3 seconds. Skin: unremarkable. Results: Elevated BG 264, AG 13. Decreased CO2 v18. Available chart/ vitals / labs / images reviewed. Video assessment done using teleICU camera, rest of exam as per RN. A/P: Critical Care: critically ill patient. Cont. IVF, IV insulin. Replace K. Cont PPI, Silverio. Discussed with JUSTIN Rodriguez. Asked RN to reach out to eICU if any questions or concerns later. Time spent with patient/coordination of care with other health professionals (mins): 15 Sepsis Event Evaluation Height, Weight, BMI Height: 5'9.00" Weight: 255lbs. 0oz. 115.573822yq; 24.86 BMI Method:Stated Focused Exam Lactate Level 03/26/22 01:50: Lactic Acid Level 4.45*H 03/26/22 07:18: Lactic Acid Level 1.83 Lactic Acid Level Laboratory Tests Test 03/26/22 07:18 Lactic Acid Level 1.83 MMOL/L (0.50-2.00) Exam Exam Patient acknowledged, consented, and participated in this virtual visit which was conducted using real time audio/video Vital Signs Date Time Temp Pulse Resp B/P (MAP) Pulse Ox O2 Delivery O2 Flow Rate FiO2 03/26/22 08:49 36.4 84 18 121/80 (94) 99 Room Air 03/26/22 07:30 100 Room Air 03/26/22 07:00 71 03/26/22 04:31 108 03/26/22 04:00 36.5 99 18 126/79 (95) 100 Room Air 03/26/22 02:59 36.8 102 16 137/82 100 Room Air 03/26/22 01:31 Room Air 03/26/22 01:31 36.8 106 20 137/89 (105) 100 Room Air I & O 03/26/22 07:00 Intake Total 2000 ml Output Total 250 ml Balance 1750 ml Height & Weight Height: 5'9.00" Weight: 255lbs. 0oz. 115.237322me; 24.86 BMI Method:Stated General Appearance: No Apparent Distress, WD/WN, Other (DOES NOT APPEAR ILL OR TO BE IN ANY DISCOMFORT OR DISTRESS. WALKS AND MOVES WITHOUT DIFFICULTY) HEENT: PERRL/EOMI, TMs Normal, Other (ORAL MUCOSA DRY) Neck: Normal Inspection Respiratory: Normal Breath Sounds, No Accessory Muscle Use, No Respiratory Distress Cardiovascular: Regular Rate, Rhythm, No Edema, No JVD, No Murmur, Normal Peripheral Pulses Capillary Refill: Less Than 3 Seconds Extremity: Normal Capillary Refill, Normal Inspection, No Pedal Edema Neurologic/Psychiatric: Alert, Oriented x3, No Motor/Sensory Deficits, Normal Mood/Affect, biogeographer II-XII Norm as Tested Skin: Normal Color, Warm/Dry Results Lab Laboratory Tests 03/26/22 01:50 03/26/22 07:18 Assessment/Plan Assessment/Plan See free text. Critical Care: Critically Ill Patient ALESIA SULLIVAN MD Mar 26, 2022 10:21
[2022-03-26] MEDS: POTASSIUM CL 10MEQ/50ML IVPB 50 ML IV SCH ×6 (10:39→16:51)
[2022-03-26 12:42] LABS: POTASSIUM 3.9 MMOL/L (3.6-5.0)
[2022-03-26 12:43] LABS: CALCIUM 7.6 MG/DL (8.5-10.1)
[2022-03-26 12:47] LABS: CREATININE SERUM 0.69 MG/DL (0.60-1.30)
[2022-03-26 16:43] LABS: POTASSIUM 4.4 MMOL/L (3.6-5.0)
[2022-03-26 16:44] LABS: CALCIUM 7.6 MG/DL (8.5-10.1)
[2022-03-26 16:48] LABS: CREATININE SERUM 0.71 MG/DL (0.60-1.30)
[2022-03-26 20:42] LABS: POTASSIUM 4.7 MMOL/L (3.6-5.0)
[2022-03-26 20:43] LABS: CALCIUM 8.1 MG/DL (8.5-10.1)
[2022-03-26 20:48] LABS: CREATININE SERUM 0.75 MG/DL (0.60-1.30)
[2022-03-27] VITALS (20 sets, daily range): BP systolic 98–147; BP diastolic 68–108
[2022-03-27] MEDS: D5 1/2 NS 1000 ML IV SOLUTION 1,000 ML IV SCH ×5 (01:11→18:03)
[2022-03-27 01:25] LABS: POTASSIUM 4.1 MMOL/L (3.6-5.0)
[2022-03-27 01:30] LABS: CREATININE SERUM 0.69 MG/DL (0.60-1.30)
[2022-03-27] MEDS: DOCUSATE SODIUM 100 MG (COLACE) CAP PO SCH ×4 (02:25→20:26)
[2022-03-27] MEDS: SENNOSIDES 8.6 MG (SENOKOT) TAB PO SCH ×4 (02:25→20:26)
[2022-03-27] MEDS: 1/2 NS IV SOLUTION 1,000 ML IV SCH (02:27)
[2022-03-27] MEDS ORDERED: POTASSIUM CL 10MEQ/50ML IVPB 50 ML IV SCH (03:00)
[2022-03-27 04:37] LABS: BASOPHILS % (AUTO) 1 % (0-10); EOSINOPHILS # (AUTO) 0.1 10^3/uL (0.0-0.3); EOSINOPHILS % (AUTO) 2 % (0-10); HEMATOCRIT 32 % (35-52); HEMOGLOBIN 10.3 g/dL (11.5-16.0); LYMPHOCYTES # (AUTO) 2.2 10^3/uL (1.0-4.0); LYMPHOCYTES % (AUTO) 59 % (12-44); MEAN CORPUSCULAR HEMOGLOBIN 30 pg (25-34); MEAN CORPUSCULAR HGB CONC 32 g/dL (32-36); MEAN CORPUSCULAR VOLUME 95 fL (80-99); MEAN PLATELET VOLUME 10.3 fL (9.0-12.2); MONOCYTES # (AUTO) 0.4 10^3/uL (0.0-1.0); MONOCYTES % (AUTO) 10 % (0-12); NEUTROPHILS # (AUTO) 1.1 10^3/uL (1.8-7.8); NEUTROPHILS % (AUTO) 28 % (42-75); PLATELET COUNT 243 10^3/uL (130-400); WHITE BLOOD COUNT 3.7 10^3/uL (4.3-11.0)
[2022-03-27 04:58] LABS: ALBUMIN 2.8 GM/DL (3.2-4.5)
[2022-03-27 04:59] LABS: CALCIUM 7.7 MG/DL (8.5-10.1)
[2022-03-27 05:01] LABS: TOTAL PROTEIN 5.2 GM/DL (6.4-8.2)
[2022-03-27 05:02] LABS: BILIRUBIN,TOTAL 0.2 MG/DL (0.1-1.0)
[2022-03-27 05:04] LABS: CREATININE SERUM 0.65 MG/DL (0.60-1.30); PHOSPHORUS 3.2 MG/DL (2.3-4.7)
[2022-03-27 05:07] LABS: MAGNESIUM 1.8 MG/DL (1.6-2.4)
[2022-03-27] MEDS: POTASSIUM CL 10MEQ/50ML IVPB 50 ML IV SCH ×12 (05:16→22:34)
[2022-03-27] MEDS: MAGNESIUM 1 GM/100 ML IVPB 100 ML IV SCH (06:53)
[2022-03-27] MEDS: KCL 20 MEQ TAB (K-DUR) PO SCH (06:54)
[2022-03-27] MEDS: ENOXAPARIN 40 MG/0.4 ML (LOVENOX) SYR SC SCH ×2 (09:00→09:09)
[2022-03-27] MEDS: PANTOPRAZOLE 40 MG (PROTONIX) VIAL IV SCH (09:09)
[2022-03-27 12:01] LABS: POTASSIUM 4.7 MMOL/L (3.6-5.0)
[2022-03-27 12:03] LABS: CALCIUM 7.8 MG/DL (8.5-10.1)
[2022-03-27 12:07] LABS: CREATININE SERUM 0.73 MG/DL (0.60-1.30)
--- NOTE | 2022-03-27 14:38 | Tele-ICU Progress Note ---
Subjective Date Seen by a Provider: Mar 27, 2022 Time Seen by a Provider: 14:38 Subjective/Events-last exam (Tele-ICU Physician , Progress Note ) Available chart/ vitals / labs / Images reviewed Video assessment done using teleICU camera, rest of exam as per RN Discussed with RN , EXAM PER RN Events overnight : Afebrile FiO2 - ra I/O = pos Drips: Pressors: , hemodynamically stable Patient admitted 03/26 - DKA A/P DKA , recurrent ( multiple admission this year with same Dx *Insulin drip continue to monitor for resolution of acidosis, AG and electrolytes. Continue hydration. *Tx Gastroparesis Elevated transaminases - chart reviewed - mildly elevated on each admission , now is higher - US liver ordered VTE Prophylaxis: harjit 40 Stress Ulcer Prophylaxis: NA Plans in collaboration with bedside consultants and IM MDs. Discussed with RN to reach out if any questions or concerns A total of 15 minutes of critical care time was devoted to this patient today, required to treat and/or prevent further deterioration of critical care condition ( as above Sepsis Event Evaluation Height, Weight, BMI Height: 5'9.00" Weight: 255lbs. 0oz. 115.786302gq; 24.86 BMI Method:Stated Focused Exam Lactate Level 03/26/22 01:50: Lactic Acid Level 4.45*H 03/26/22 07:18: Lactic Acid Level 1.83 Exam Exam Patient acknowledged, consented, and participated in this virtual visit which was conducted using real time audio/video Vital Signs Date Time Temp Pulse Resp B/P (MAP) Pulse Ox O2 Delivery O2 Flow Rate FiO2 03/27/22 12:00 35.8 Room Air 03/27/22 12:00 Room Air 03/27/22 09:00 73 13 98/68 (78) 98 Room Air 03/27/22 08:00 36.4 Room Air 03/27/22 08:00 79 16 99/68 (78) 99 Room Air 03/27/22 08:00 100 Room Air 03/27/22 07:00 78 03/27/22 07:00 76 13 101/70 (80) 98 Room Air 03/27/22 06:00 89 13 105/71 (82) 98 Room Air 03/27/22 05:00 84 14 104/70 (81) 98 Room Air 03/27/22 04:00 Room Air 03/27/22 04:00 88 21 113/80 (91) 100 Room Air 03/27/22 03:41 36.1 03/27/22 03:00 107 23 113/80 (89) 99 Room Air 03/27/22 02:00 106 16 120/83 (97) Room Air 03/27/22 01:00 107 14 120/87 (96) 99 Room Air 03/27/22 01:00 107 03/27/22 00:00 104 19 125/83 (96) 99 Room Air 03/27/22 00:00 Room Air 03/26/22 23:58 36.2 03/26/22 23:00 103 20 124/86 (96) 99 Room Air 03/26/22 22:00 96 22 122/82 (93) 100 Room Air 03/26/22 21:00 87 13 114/81 (89) 100 Room Air 03/26/22 20:00 112 12 119/85 (96) 98 Room Air 03/26/22 20:00 Room Air 03/26/22 19:39 36.2 03/26/22 19:00 101 11 117/90 (100) 100 Room Air 03/26/22 19:00 101 03/26/22 18:00 93 14 120/98 (105) 100 Room Air 03/26/22 17:00 86 20 122/89 (100) 100 Room Air 03/26/22 16:50 99 Room Air 03/26/22 16:00 79 14 108/71 (83) 99 Room Air 03/26/22 15:47 36.1 03/26/22 15:00 80 15 107/72 (84) 99 Room Air I & O0 03/27/22 07:00 Intake Total 5920 ml Output Total 0 ml Balance 5920 ml Height & Weight Height: 5'9.00" Weight: 255lbs. 0oz. 115.929508mq; 24.86 BMI Method:Stated General Appearance: No Apparent Distress, Chronically ill HEENT: PERRL/EOMI, Normal ENT Inspection, Pharynx Normal, Moist Mucous Membranes Neck: Full Range of Motion, Normal Inspection, Non Tender Respiratory: Chest Non Tender, Lungs Clear, Normal Breath Sounds, No Accessory Muscle Use, No Respiratory Distress Cardiovascular: Regular Rate, Rhythm, No Edema, No Gallop, No JVD, No Murmur, Normal Peripheral Pulses Capillary Refill: Less Than 3 Seconds Extremity: Normal Capillary Refill, Normal Inspection, Normal Range of Motion, Non Tender, No Calf Tenderness, No Pedal Edema Neurologic/Psychiatric: Alert, Oriented x3, No Motor/Sensory Deficits, Normal Mood/Affect Skin: Normal Color, Warm/Dry Lymphatic: No Adenopathy Results Lab Laboratory Tests 03/26/22 01:50 03/26/22 07:18 03/26/22 12:11 03/26/22 16:25 03/26/22 20:17 03/27/22 01:10 03/27/22 04:20 03/27/22 11:30 Assessment/Plan Assessment/Plan 1 FRANTZ ENCISO MD Mar 27, 2022 14:38
--- NOTE | 2022-03-27 15:30 | Progress Note ---
Subjective Subjective/Events-last exam Patient doing well this AM. She is up and eating breakfast. Denies any pain. States that she did not miss any doses of medications but she was outside for extended periods of time over the weekend moving into a new apartment and did not eat and drink her normal. No recent sick contacts. Up moving in room ad bright Review of Systems General: Fatigue Pulmonary: No Dyspnea, No Cough Cardiovascular: No: Chest Pain, Palpitations, Edema Gastrointestinal: No: Nausea, Vomiting, Abdominal Pain, Diarrhea, Constipation Genitourinary: No Dysuria; Frequency Focused Exam Lactate Level 03/26/22 01:50: Lactic Acid Level 4.45*H 03/26/22 07:18: Lactic Acid Level 1.83 Objective Exam Last Set of Vital Signs Vital Signs Date Time Temp Pulse Resp B/P (MAP) Pulse Ox O2 Delivery O2 Flow Rate FiO2 03/27/22 12:00 35.8 Room Air 03/27/22 09:00 73 13 98 Capillary Refill : Less Than 3 Seconds I&O Intake and Output 03/27/22 00:00 Intake Total 5270 ml Output Total 250 ml Balance 5020 ml Intake Oral 2270 ml IV Total 3000 ml Output Urine Total 250 ml # Voids 5 Daily Weight Change Yes, 2-13 lbs General: Alert, Oriented X3, No Acute Distress Lungs: Clear to Auscultation, Normal Air Movement Heart: Regular Rate, No Murmurs Abdomen: Normal Bowel Sounds, Soft, No Tenderness, No Masses Extremities: No Edema, No Tenderness/Swelling Neuro: Normal Speech, Cranial Nerves 3-12 NL Results/Procedures Lab Laboratory Tests 03/26/22 15:44: Glucometer 175H 03/26/22 16:25: Sodium Level 136, Potassium Level 4.4, Chloride Level 107, Carbon Dioxide Level 15L, Anion Gap 14, Blood Urea Nitrogen 5L, Creatinine 0.71, Estimat Glomerular Filtration Rate 126, BUN/Creatinine Ratio 7, Glucose Level 226H, Calcium Level 7.6L 03/26/22 16:49: Glucometer 233H 03/26/22 17:36: Glucometer 231H 03/26/22 18:31: Glucometer 232H 03/26/22 19:38: Glucometer 175H 03/26/22 20:17: Sodium Level 137, Potassium Level 4.7, Chloride Level 107, Carbon Dioxide Level 15L, Anion Gap 15H, Blood Urea Nitrogen 5L, Creatinine 0.75, Estimat Glomerular Filtration Rate 118, BUN/Creatinine Ratio 7, Glucose Level 182H, Calcium Level 8.1L 03/26/22 20:30: Glucometer 226H 03/26/22 21:46: Glucometer 185H 03/26/22 22:42: Glucometer 195H 03/26/22 23:35: Glucometer 163H 03/27/22 00:39: Glucometer 173H 03/27/22 01:10: Sodium Level 137, Potassium Level 4.1, Chloride Level 107, Carbon Dioxide Level 16L, Anion Gap 14, Blood Urea Nitrogen 6L, Creatinine 0.69, Estimat Glomerular Filtration Rate 128, BUN/Creatinine Ratio 9, Glucose Level 150H, Calcium Level 8.0L 03/27/22 02:13: Glucometer 136H 03/27/22 03:12: Glucometer 196H 03/27/22 04:12: Glucometer 162H 03/27/22 04:20: White Blood Count 3.7L, Red Blood Count 3.41L, Hemoglobin 10.3L, Hematocrit 32L, Mean Corpuscular Volume 95, Mean Corpuscular Hemoglobin 30, Mean Corpuscular Hemoglobin Concent 32, Red Cell Distribution Width 14.4, Platelet Count 243, Mean Platelet Volume 10.3, Immature Granulocyte % (Auto) 1, Neutrophils (%) (Auto) 28L, Lymphocytes (%) (Auto) 59H, Monocytes (%) (Auto) 10, Eosinophils (%) (Auto) 2, Basophils (%) (Auto) 1, Neutrophils # (Auto) 1.1L, Lymphocytes # (Auto) 2.2, Monocytes # (Auto) 0.4, Eosinophils # (Auto) 0.1, Basophils # (Auto) 0.0, Immature Granulocyte # (Auto) 0.0, Sodium Level 138, Potassium Level 4.0, Chloride Level 110H, Carbon Dioxide Level 16L, Anion Gap 12, Blood Urea Nitrogen 7, Creatinine 0.65, Estimat Glomerular Filtration Rate 130, BUN/Creatinine Ratio 11, Glucose Level 147H, Calcium Level 7.7L, Corrected Calcium 8.7, Phosphorus Level 3.2, Magnesium Level 1.8, Total Bilirubin 0.2, Aspartate Amino Transf (AST/SGOT) 391H, Alanine Aminotransferase (ALT/SGPT) 163H, Alkaline Phosphatase 168H, Total Protein 5.2L, Albumin 2.8L, Beta-Hydroxybutyrate (Chem panel) 0.18 03/27/22 05:09: Glucometer 106 03/27/22 06:07: Glucometer 84 03/27/22 06:40: Glucometer 104 03/27/22 07:20: Glucometer 142H 03/27/22 08:20: Glucometer 162H 03/27/22 09:17: Glucometer 138H 03/27/22 10:16: Glucometer 128H 03/27/22 11:17: Glucometer 215H 03/27/22 11:30: Sodium Level 139, Potassium Level 4.7, Chloride Level 108H, Carbon Dioxide Level 18L, Anion Gap 13, Blood Urea Nitrogen 6L, Creatinine 0.73, Estimat Glomerular Filtration Rate 121, BUN/Creatinine Ratio 8, Glucose Level 229H, Calcium Level 7 .8L 03/27/22 12:15: Glucometer 322H 03/27/22 13:31: Glucometer 336H 03/27/22 14:28: Glucometer 286H 03/27/22 15:25: Glucometer 219H Assessment/Plan Assessment/Plan (1) DKA, type 1 Status: Acute Assessment & Plan: 03/27: CO2 remains 18 will continue insulin gtts, hydration, ADA diet Qualifiers: Qualified Codes: E10.10 - Type 1 diabetes mellitus with ketoacidosis without coma (2) Elevated liver enzymes Status: Acute Assessment & Plan: 03/27: New this admission, Liver US ordered, no pain per patient (3) Uncontrolled type 1 diabetes mellitus Status: Acute Qualifiers: Qualified Codes: E10.65 - Type 1 diabetes mellitus with hyperglycemia JOSE OKEEFE MD Mar 27, 2022 15:30
[2022-03-27 18:34] LABS: POTASSIUM 4.4 MMOL/L (3.6-5.0)
[2022-03-27 18:35] LABS: CALCIUM 8.6 MG/DL (8.5-10.1)
[2022-03-27 18:39] LABS: CREATININE SERUM 0.76 MG/DL (0.60-1.30)
[2022-03-27 19:19] LABS: HEPATITIS C ANTIBODY C Non-Reactive (Non-Reactive)
[2022-03-28] VITALS (14 sets, daily range): BP systolic 102–133; BP diastolic 71–104
[2022-03-28] MEDS: POTASSIUM CL 10MEQ/50ML IVPB 50 ML IV SCH ×11 (01:06→18:50)
[2022-03-28] MEDS: D5 1/2 NS 1000 ML IV SOLUTION 1,000 ML IV SCH ×4 (03:16→14:11)
[2022-03-28 05:05] LABS: BASOPHILS % (AUTO) 1 % (0-10); EOSINOPHILS # (AUTO) 0.1 10^3/uL (0.0-0.3); EOSINOPHILS % (AUTO) 2 % (0-10); HEMATOCRIT 33 % (35-52); HEMOGLOBIN 10.4 g/dL (11.5-16.0); LYMPHOCYTES # (AUTO) 1.9 10^3/uL (1.0-4.0); LYMPHOCYTES % (AUTO) 62 % (12-44); MEAN CORPUSCULAR HEMOGLOBIN 30 pg (25-34); MEAN CORPUSCULAR HGB CONC 32 g/dL (32-36); MEAN CORPUSCULAR VOLUME 93 fL (80-99); MEAN PLATELET VOLUME 10.7 fL (9.0-12.2); MONOCYTES # (AUTO) 0.2 10^3/uL (0.0-1.0); MONOCYTES % (AUTO) 7 % (0-12); NEUTROPHILS # (AUTO) 0.8 10^3/uL (1.8-7.8); NEUTROPHILS % (AUTO) 27 % (42-75); PLATELET COUNT 236 10^3/uL (130-400); WHITE BLOOD COUNT 3.1 10^3/uL (4.3-11.0)
[2022-03-28 05:27] LABS: ALBUMIN 2.7 GM/DL (3.2-4.5); POTASSIUM 4.4 MMOL/L (3.6-5.0)
[2022-03-28 05:28] LABS: CALCIUM 8.2 MG/DL (8.5-10.1)
[2022-03-28 05:29] LABS: TOTAL PROTEIN 5.1 GM/DL (6.4-8.2)
[2022-03-28 05:31] LABS: BILIRUBIN,TOTAL 0.3 MG/DL (0.1-1.0)
[2022-03-28 05:32] LABS: PHOSPHORUS 3.9 MG/DL (2.3-4.7)
[2022-03-28 05:33] LABS: CREATININE SERUM 0.71 MG/DL (0.60-1.30)
[2022-03-28 05:36] LABS: MAGNESIUM 1.9 MG/DL (1.6-2.4)
[2022-03-28] MEDS: KCL 20 MEQ TAB (K-DUR) PO SCH (06:41)
[2022-03-28] MEDS: MAGNESIUM 1 GM/100 ML IVPB 100 ML IV SCH (06:41)
[2022-03-28] MEDS: DOCUSATE SODIUM 100 MG (COLACE) CAP PO SCH ×2 (09:19→21:30)
[2022-03-28] MEDS: ENOXAPARIN 40 MG/0.4 ML (LOVENOX) SYR SC SCH (09:19)
[2022-03-28] MEDS: SENNOSIDES 8.6 MG (SENOKOT) TAB PO SCH ×2 (09:19→21:30)
[2022-03-28] MEDS: PANTOPRAZOLE 40 MG (PROTONIX) VIAL IV SCH (09:25)
--- NOTE | 2022-03-28 11:06 | Tele-ICU Progress Note ---
Subjective Date Seen by a Provider: Mar 28, 2022 Time Seen by a Provider: 11:06 Subjective/Events-last exam (Tele-ICU Physician , Progress Note ) Available chart/ vitals / labs / Images reviewed Video assessment done using teleICU camera, rest of exam as per RN Discussed with RN , EXAM PER RN Events overnight : Afebrile FiO2 - ra I/O = pos Drips: Pressors: , hemodynamically stable Patient admitted 03/26 - DKA A/P DKA , recurrent ( multiple admission this year with same Dx *Insulin drip to stop this am , start long acting Elevated transaminases - chart reviewed - mildly elevated on each admission , now is higher and keep rising - US liver done - results pending VTE Prophylaxis: harjit 40 Stress Ulcer Prophylaxis: NA Plans in collaboration with bedside consultants and IM MDs. Discussed with RN to reach out if any questions or concerns A total of 15 minutes of critical care time was devoted to this patient today, required to treat and/or prevent further deterioration of critical care condition ( as above Sepsis Event Evaluation Height, Weight, BMI Height: 5'9.00" Weight: 255lbs. 0oz. [id number]; 24.86 BMI Method:Stated Focused Exam Lactate Level 03/26/22 01:50: Lactic Acid Level 4.45*H 03/26/22 07:18: Lactic Acid Level 1.83 Exam Exam Patient acknowledged, consented, and participated in this virtual visit which was conducted using real time audio/video Vital Signs Date Time Temp Pulse Resp B/P (MAP) Pulse Ox O2 Delivery O2 Flow Rate FiO2 03/28/22 09:00 105 31 131/95 (107) 100 Room Air 03/28/22 08:15 Room Air 03/28/22 08:00 71 15 129/99 (109) 100 Room Air 03/28/22 07:37 35.7 03/28/22 07:00 69 17 121/88 (99) 99 Room Air 03/28/22 06:51 80 03/28/22 06:00 80 16 114/85 (95) 98 Room Air 03/28/22 05:00 75 34 102/73 (83) 99 Room Air 03/28/22 04:00 36.1 03/28/22 04:00 82 118/84 (93) 98 Room Air 03/28/22 03:44 Room Air 03/28/22 03:00 84 16 121/86 (96) 98 Room Air 03/28/22 02:00 75 16 120/93 (104) 98 Room Air 03/28/22 01:00 85 17 123/87 (98) 98 Room Air 03/28/22 01:00 85 03/28/22 00:00 36.0 03/28/22 00:00 Room Air 03/28/22 00:00 94 17 122/85 (96) 98 Room Air 03/27/22 23:00 93 15 147/105 (119) 100 Room Air 03/27/22 22:00 84 16 125/101 (109) 100 Room Air 03/27/22 21:00 85 16 114/82 (91) 98 Room Air 03/27/22 20:27 Room Air 03/27/22 20:27 36.0 03/27/22 20:00 84 16 120/84 (93) 98 Room Air 03/27/22 19:00 93 18 122/88 (99) 100 Room Air 03/27/22 19:00 93 03/27/22 18:00 101 24 127/89 (102) 98 Room Air 03/27/22 17:00 96 15 99 Room Air 03/27/22 16:00 Room Air 03/27/22 16:00 101 22 131/96 (108) 99 Room Air 03/27/22 15:36 36.0 03/27/22 15:00 95 22 141/108 (119) 100 Room Air 03/27/22 14:00 96 14 100 Room Air 03/27/22 13:00 84 20 100 Room Air 03/27/22 13:00 89 03/27/22 12:00 35.8 Room Air 03/27/22 12:00 Room Air 03/27/22 12:00 76 16 98 Room Air I & O 03/28/22 07:00 Intake Total 4940 ml Balance 4940 ml Height & Weight Height: 5'9.00" Weight: 255lbs. 0oz. 115.543197oo; 24.86 BMI Method:Stated General Appearance: No Apparent Distress, Chronically ill HEENT: PERRL/EOMI, Normal ENT Inspection, Pharynx Normal, Moist Mucous Membranes Neck: Full Range of Motion, Normal Inspection, Non Tender Respiratory: Chest Non Tender, Lungs Clear, Normal Breath Sounds, No Accessory Muscle Use, No Respiratory Distress Cardiovascular: Regular Rate, Rhythm, No Edema, No Gallop, No JVD, No Murmur, Normal Peripheral Pulses Capillary Refill: Less Than 3 Seconds Extremity: Normal Capillary Refill, Normal Inspection, Normal Range of Motion, Non Tender, No Calf Tenderness, No Pedal Edema Neurologic/Psychiatric: Alert, Oriented x3, No Motor/Sensory Deficits, Normal Mood/Affect Skin: Normal Color, Warm/Dry Lymphatic: No Adenopathy Results Lab Laboratory Tests 03/26/22 12:11 03/26/22 16:25 03/26/22 20:17 03/27/22 01:10 03/27/22 04:20 03/27/22 11:30 03/27/22 18:05 03/28/22 04:35 Assessment/Plan Assessment/Plan 1 FRANTZ ENCISO MD Mar 28, 2022 11:06
--- NOTE | 2022-03-28 13:56 | Diagnostic Imaging Report ---
PROCEDURE: US Hepatic (Liver). TECHNIQUE: Multiple real-time grayscale images were obtained over the right upper quadrant in various projections. INDICATION: Elevated liver function tests. COMPARISON: CT abdomen and pelvis from 08/26/2021. FINDINGS: The liver is again noted to be enlarged measuring approximately 23 cm in length. There is no focal hepatic lesion. The liver has diffuse increased echogenicity relative to the renal cortex indicative of diffuse hepatic steatosis. The main portal vein is patent with normal directional flow. The gallbladder is distended without gallstones, wall thickening, or pericholecystic fluid. The common bile duct measures up to 0.5 cm in diameter. No intrahepatic biliary dilation. The visualized portions of the pancreas are normal. Portions of the head and tail are obscured by overlying bowel gas. The right kidney is normal in size. No hydronephrosis, shadowing calculi, or suspicious mass lesion. IMPRESSION: 1. Hepatomegaly with diffuse hepatic steatosis. 2. Normal gallbladder and bile ducts. Dictated by: Dictated on workstation # [id number]
--- NOTE | 2022-03-28 16:46 | Progress Note ---
Subjective Subjective/Events-last exam Patient upset because she is wanting to come home. Denies any pain. Tolerating regular diet. Review of Systems Pulmonary: No Dyspnea, No Cough Cardiovascular: No: Chest Pain, Palpitations, Edema Gastrointestinal: No: Nausea, Vomiting, Abdominal Pain, Diarrhea, Constipation Neurological: No: Weakness, Numbness, Incoordination, Confusion Focused Exam Lactate Level 03/26/22 01:50: Lactic Acid Level 4.45*H 03/26/22 07:18: Lactic Acid Level 1.83 Objective Exam Last Set of Vital Signs Vital Signs Date Time Temp Pulse Resp B/P (MAP) Pulse Ox O2 Delivery O2 Flow Rate FiO2 03/28/22 16:00 36.4 03/28/22 12:00 Room Air 03/28/22 11:00 72 15 107/71 (83) 97 Capillary Refill : Less Than 3 Seconds I&O Intake and Output 03/28/22 00:00 Intake Total 5100 ml Balance 5100 ml Intake Oral 2450 ml IV Total 2650 ml # Voids 12 # Bowel Movements 3 General: Alert, Oriented X3, Cooperative, No Acute Distress Lungs: Clear to Auscultation, Normal Air Movement Heart: Regular Rate, No Murmurs Abdomen: Normal Bowel Sounds, Soft, No Tenderness, No Masses Extremities: No Edema, No Tenderness/Swelling Neuro: Normal Speech, Strength at 5/5 X4 Ext Results/Procedures Lab Laboratory Tests 03/27/22 18:05: Sodium Level 139, Potassium Level 4.4, Chloride Level 106, Carbon Dioxide Level 20L, Anion Gap 13, Blood Urea Nitrogen 6L, Creatinine 0.76, Estimat Glomerular Filtration Rate 116, BUN/Creatinine Ratio 8, Glucose Level 173H, Calcium Level 8.6 03/27/22 18:06: Glucometer 181H 03/27/22 19:04: Glucometer 188H 03/27/22 21:48: Glucometer 123H 03/27/22 23:06: Glucometer 142H 03/28/22 00:59: Glucometer 270H 03/28/22 02:08: Glucometer 244H 03/28/22 02:59: Glucometer 192H 03/28/22 03:54: Glucometer 178H 03/28/22 04:35: White Blood Count 3.1L, Red Blood Count 3.49L, Hemoglobin 10.4L, Hematocrit 33L, Mean Corpuscular Volume 93, Mean Corpuscular Hemoglobin 30, Mean Corpuscular Hemoglobin Concent 32, Red Cell Distribution Width 14.1, Platelet Count 236, Mean Platelet Volume 10.7, Immature Granulocyte % (Auto) 0, Neutrophils (%) (Auto) 27L, Lymphocytes (%) (Auto) 62H, Monocytes (%) (Auto) 7, Eosinophils (%) (Auto) 2, Basophils (%) (Auto) 1, Neutrophils # (Auto) 0.8L, Lymphocytes # (Auto) 1.9, Monocytes # (Auto) 0.2, Eosinophils # (Auto) 0.1, Basophils # (Auto) 0.0, Immature Granulocyte # (Auto) 0.0, Sodium Level 140, Potassium Level 4.4, Chloride Level 109H, Carbon Dioxide Level 20L, Anion Gap 11, Blood Urea Nitrogen 8, Creatinine 0.71, Estimat Glomerular Filtration Rate 126, BUN/Creatinine Ratio 11, Glucose Level 164H, Calcium Level 8.2L, Corrected Calcium 9.2, Phosphorus Level 3.9, Magnesium Level 1.9, Total Bilirubin 0.3, Aspartate Amino Transf (AST/SGOT) 715H, Alanine Aminotransferase (ALT/SGPT) 306H, Alkaline Phosphatase 169H, Total Protein 5.1L, Albumin 2.7L, Beta-Hydroxybutyrate (Chem panel) 0.16 03/28/22 05:10: Glucometer 154H 03/28/22 05:56: Glucometer 173H 03/28/22 06:53: Glucometer 156H 03/28/22 07:52: Glucometer 137H 03/28/22 09:01: Glucometer 136H 03/28/22 09:59: Glucometer 159H 03/28/22 10:56: Glucometer 177H 03/28/22 11:56: Glucometer 173H 03/28/22 12:56: Glucometer 185H 03/28/22 13:59: Glucometer 215H 03/28/22 14:42: Glucometer 250H 03/28/22 14:53: Glucometer 221H 03/28/22 16:32: Glucometer 298H Microbiology 03/26/22 MRSA Screen - Final, Complete MRSA not isolated Assessment/Plan Assessment/Plan (1) DKA, type 1 Status: Acute Assessment & Plan: 03/27: CO2 remains 18 will continue insulin gtts, hydration, ADA diet 03/28: Gap closed, d/c insulin gtts and start subcutaneous insulin Qualifiers: Qualified Codes: E10.10 - Type 1 diabetes mellitus with ketoacidosis without coma (2) Elevated liver enzymes Status: Acute Assessment & Plan: 03/27: New this admission, Liver US ordered, no pain per patient (3) Uncontrolled type 1 diabetes mellitus Status: Acute Qualifiers: Qualified Codes: E10.65 - Type 1 diabetes mellitus with hyperglycemia (4) Hepatic steatosis Status: Chronic Assessment & Plan: 03/28: Normal Gallbladder with extensive fatty liver, will trend LFTs JOSE OKEEFE MD Mar 28, 2022 16:46
[2022-03-28] MEDS: inSUlin ASPART (NovoLOG) 1 UNIT/0.01 ML (CHARGE PER UNIT) SC SCH (21:34)
[2022-03-29] VITALS: BP 143/103
[2022-03-29 03:47] VITALS: BP 114/73
[2022-03-29 05:46] LABS: BASOPHILS % (AUTO) 1 % (0-10); EOSINOPHILS # (AUTO) 0.1 10^3/uL (0.0-0.3); EOSINOPHILS % (AUTO) 2 % (0-10); HEMATOCRIT 33 % (35-52); HEMOGLOBIN 10.8 g/dL (11.5-16.0); LYMPHOCYTES # (AUTO) 2.2 10^3/uL (1.0-4.0); LYMPHOCYTES % (AUTO) 53 % (12-44); MEAN CORPUSCULAR HEMOGLOBIN 30 pg (25-34); MEAN CORPUSCULAR HGB CONC 33 g/dL (32-36); MEAN CORPUSCULAR VOLUME 93 fL (80-99); MEAN PLATELET VOLUME 10.9 fL (9.0-12.2); MONOCYTES # (AUTO) 0.4 10^3/uL (0.0-1.0); MONOCYTES % (AUTO) 9 % (0-12); NEUTROPHILS # (AUTO) 1.5 10^3/uL (1.8-7.8); NEUTROPHILS % (AUTO) 36 % (42-75); PLATELET COUNT 257 10^3/uL (130-400); WHITE BLOOD COUNT 4.1 10^3/uL (4.3-11.0)
[2022-03-29 05:58] LABS: ALBUMIN 3.1 GM/DL (3.2-4.5); POTASSIUM 4.3 MMOL/L (3.6-5.0)
[2022-03-29 06:00] LABS: TOTAL PROTEIN 5.9 GM/DL (6.4-8.2)
[2022-03-29 06:02] LABS: BILIRUBIN,TOTAL 0.4 MG/DL (0.1-1.0)
[2022-03-29 06:04] LABS: CREATININE SERUM 0.73 MG/DL (0.60-1.30)
[2022-03-29] MEDS: inSUlin ASPART (NovoLOG) 1 UNIT/0.01 ML (CHARGE PER UNIT) SC SCH ×2 (06:11→11:48)
[2022-03-29 08:16] VITALS: BP 124/77
[2022-03-29] MEDS: ENOXAPARIN 40 MG/0.4 ML (LOVENOX) SYR SC SCH (08:45)
[2022-03-29] MEDS: SENNOSIDES 8.6 MG (SENOKOT) TAB PO SCH (08:46)
[2022-03-29] MEDS: DOCUSATE SODIUM 100 MG (COLACE) CAP PO SCH (08:46)
[2022-03-29] MEDS: PANTOPRAZOLE 40 MG (PROTONIX) VIAL IV SCH (08:46)
[2022-03-29 11:20] VITALS: BP 114/76
--- NOTE | 2022-03-29 12:51 | Discharge Summary ---
Diagnosis/Chief Complaint Date of Admission Mar 26, 2022 at 02:30 Date of Discharge 03/29/22 Admission Diagnosis Admission Diagnosis See problem list Discharge Diagnosis See Below Problems/Diagnosis: (1) DKA, type 1 Assessment & Plan: 03/27: CO2 remains 18 will continue insulin gtts, hydration, ADA diet 03/28: Gap closed, d/c insulin gtts and start subcutaneous insulin 03/29: Acidosis resolved, an episode of hypoglycemia this AM Qualifiers: Qualified Codes: E10.10 - Type 1 diabetes mellitus with ketoacidosis without coma Status: Resolved Resolution Date/Time: 03/29/22 @ 12:46 (2) Elevated liver enzymes Assessment & Plan: 03/27: New this admission, Liver US ordered, no pain per patient Status: Acute (3) Uncontrolled type 1 diabetes mellitus Qualifiers: Qualified Codes: E10.65 - Type 1 diabetes mellitus with hyperglycemia Status: Acute (4) Hepatic steatosis Assessment & Plan: 03/28: Normal Gallbladder with extensive fatty liver, will trend LFTs 03/29: No pain, nml US, would recommend HIDA scan as outpatient and repeat LFTs next week, patient really would like to d/c today, will have close f.u with PCP Riki Status: Chronic Discharge Summary-Simple/Stand Consultations Discharge Physical Examination Allergies: Coded Allergies: bismuth subsalicylate (Verified Allergy, Unknown, 10/27/21) Vitals & I&Os Vital Sign - Last 12Hours Date Time Temp Pulse Resp B/P (MAP) Pulse Ox O2 Delivery O2 Flow Rate FiO2 03/29/22 11:20 36.5 74 16 114/76 (89) 98 Room Air Intake and Output 03/29/22 00:00 Intake Total 4218 ml Balance 4218 ml General Appearance: Alert, Oriented X3, Cooperative, No Acute Distress Respiratory: Clear to Auscultation, Normal Air Movement Cardiovascular: Regular Rate, No Murmurs Abdominal: Normal Bowel Sounds, Soft, No Tenderness, No Masses Extremities: No Edema, No Tenderness/Swelling Skin: No Rashes Neuro: Normal Speech, Strength at 5/5 X4 Ext, Sensation Intact, Cranial Nerves 3-12 NL Hospital Course See final discharge diagnosis. Other pending tests - Needs repeat LFTs 1 week - Recommend HIDA scan if LFTs not improving Discussion & Recommendations 21 yo F that was treated for DKA. New this admission was an elevation in LFTs. US showed extensive fatty liver infiltration with normal gallbladder. Will need further workup done. Discharge Condition at discharge stable Instructions to patient/family Please see electronic discharge instructions given to patient. Discharge Medications Reviewed and agree with Discharge Medication list on patient's Discharge Instruction sheet JOSE OKEEFE MD Mar 29, 2022 12:51
--- NOTE | 2022-03-29 12:53 | Discharge Summary ---
Discharge [facility] Reconcile Patient Problems Problems Reviewed?: Yes Discharge Medications New, Converted or Re-Newed RX: Other Continued Medications: Acetaminophen (Tylenol Extra Strength) 500 Mg Tablet 1000 MG PO Q8H PRN for PAIN-MILD (1-4), TAB Ibuprofen (Ibuprofen) 200 Mg Tablet 400-600 MG PO Q8H PRN for PAIN-MILD (1-4), TAB Insulin Aspart (Insulin Aspart Flexpen) 100 Unit/1 Ml Insuln.pen UNIT SQ AC, EA USES PER SLIDING SCALE Insulin Glargine,Hum.rec.anlog (Lantus Solostar) 100 Unit/Ml (3 Ml) Insuln.pen 35 UNIT SQ HS, EA LAST FILLED 10-16-2021 #7 PENS/28 SAY SUPPLY Insulin Glargine,Hum.rec.anlog (Lantus Solostar) 100 Unit/Ml (3 Ml) Insuln.pen 25 UNIT SQ DAILY, EA LAST FILLED 10-16-2021 #7 PENS/28 SAY SUPPLY Patient Instructions Goal/Follow Up Appt: F.u with Dr Lyn next week with repeat CMP Activity & Diet Discharge Diet: ADA Diet Activity as Tolerated: Yes JOSE OKEEFE MD Mar 29, 2022 12:53
[2022-03-29 14:00] VITALS: BP 114/76
== END 2022-03-29 14:00 | disposition home or self-care (01) | DRG 639 ==
LOC: EDUNIT# 01:22 → ER 01:23 → 4TH 02:30 → ICU 10:08 → 4TH 03-29 02:42
PROVIDERS: ADMIT Internal Medicine; ATTEND Family Medicine
DX: E10.10 Type 1 diabetes mellitus with ketoacidosis without coma (principal); F17.210 Nicotine dependence, cigarettes, uncomplicated; F12.90 Cannabis use, unspecified, uncomplicated; F41.9 Anxiety disorder, unspecified; F32.A Depression, unspecified; R74.01 Elevation of levels of liver transaminase levels; K76.0 Fatty (change of) liver, not elsewhere classified; Z20.822 Contact with and (suspected) exposure to COVID-19
CPT/HCPCS: 36415; 76705; 80048; 80053; 80074; 80306; 81000; 82010; 82150; 82947; 83036; 83605; 83690; 83735; 84100; 84703; 85025; 87081; 87636; 93041

== ENCOUNTER 2022-05-01 23:08 | Emergency (ER) | payer BC, MEDICAID ==
[2022-05-02] MEDS ORDERED: ONDANSETRON 4 MG/2 ML (SDV) Z0FRAN IVP ONE (00:15)
[2022-05-02] MEDS ORDERED: ACETAMINOPHEN 500 MG TAB (TYLENOL) PO ONE (00:15)
[2022-05-02] MEDS ORDERED: LACTATED RINGERS 1,000 ML IV ONE (00:15)
[2022-05-02 00:50] LABS: POTASSIUM 4.7 MMOL/L (3.6-5.0)
[2022-05-02 00:52] LABS: CALCIUM 9.1 MG/DL (8.5-10.1)
[2022-05-02 00:56] LABS: CREATININE SERUM 0.8 MG/DL (0.60-1.30)
[2022-05-02] MEDS ORDERED: inSUlin (REGULAR) HUMAN 1 UNIT/0.01 ML (CHARGE PER UNIT) IV STA (00:56)
[2022-05-02] MEDS ORDERED: NS IV 1000 ML 1,000 ML IV SCH (01:00)
[2022-05-02 01:09] LABS: BILIRUBIN,URINE NEGATIVE (NEGATIVE); CLARITY,URINE CLEAR; COLOR,URINE YELLOW; GLUCOSE, URINE (UA) 3+ (NEGATIVE); KETONES,URINE TRACE (NEGATIVE); LEUKOCYTE ESTERASE ,URINE TRACE (NEGATIVE); NITRITE,URINE NEGATIVE (NEGATIVE); PH,URINE 5.5 (5-9); PROTEIN,URINE NEGATIVE (NEGATIVE)
[2022-05-02 01:17] LABS: BACTERIA,URINE FEW /HPF; RBC,URINE 0-2 /HPF; WBC,URINE 50-100 /HPF
[2022-05-02] MEDS ORDERED: KETOROLAC 30 MG/ML VIAL IVP ONE (02:00)
[2022-05-02 02:04] LABS: BASOPHILS % (AUTO) 1 % (0-10); EOSINOPHILS # (AUTO) 0.1 10^3/uL (0.0-0.3); EOSINOPHILS % (AUTO) 1 % (0-10); HEMATOCRIT 34 % (35-52); HEMOGLOBIN 11.2 g/dL (11.5-16.0); LYMPHOCYTES # (AUTO) 2.7 10^3/uL (1.0-4.0); LYMPHOCYTES % (AUTO) 36 % (12-44); MEAN CORPUSCULAR HEMOGLOBIN 29 pg (25-34); MEAN CORPUSCULAR HGB CONC 33 g/dL (32-36); MEAN CORPUSCULAR VOLUME 90 fL (80-99); MEAN PLATELET VOLUME 10.8 fL (9.0-12.2); MONOCYTES # (AUTO) 0.6 10^3/uL (0.0-1.0); MONOCYTES % (AUTO) 8 % (0-12); NEUTROPHILS % (AUTO) 55 % (42-75); PLATELET COUNT 465 10^3/uL (130-400); WHITE BLOOD COUNT 7.4 10^3/uL (4.3-11.0)
[2022-05-02] MEDS ORDERED: cefTRIAXone 1 GM PRE-MIX 50 ML IV STA (02:26)
--- NOTE | 2022-05-02 02:26 | ED General ---
General Chief Complaint: COVID19 Suspect/Confirmed Stated Complaint: TYPE I DIABETES,THINKS SHE IS COVID+,FEVER,COUGH,S Nursing Triage Note: TO ED VIA POV AND AMBULATORY TO ROOM 9 WITH C/O HEADACHE, N/V, SOA, NAUSEA, DIARRHEA, BODY ACHES. PT STATES BOYFRIEND TESTED POSITIVE FOR COVID 2 DAYS AGO. Source of Information: Patient Exam Limitations: No Limitations History of Present Illness Date Seen by Provider: May 01, 2022 Time Seen by Provider: 23:22 Initial Comments This 21-year-old young lady presents to the emergency room concerned about possible COVID symptoms that started about 24 hours ago. She complains of headache, nausea, shortness of air, diarrhea, sore throat, and body aches. Her boyfriend presently has COVID-19. She is afebrile at this time but is notably tachycardic with heart rates in the 120s. She states blood sugars have been fairly well controlled with her type 1 diabetes. Allergies and Home Medications Allergies Coded Allergies: bismuth subsalicylate (Verified Allergy, Unknown, 10/27/21) Patient Home Medication List Home Medication List Reviewed: Yes Acetaminophen (Tylenol Extra Strength) 500 Mg Tablet, 1,000 MG PO Q8H PRN for PAIN-MILD (1-4), (Reported) Entered as Reported by: COLT BOURNE on 02/16/22 1100 Cefdinir (Cefdinir) 300 Mg Capsule, 300 MG PO BID Prescribed by: SANTI SOSA on 05/02/22 0332 Ibuprofen (Ibuprofen) 200 Mg Tablet, 400-600 MG PO Q8H PRN for PAIN-MILD (1-4), (Reported) Entered as Reported by: COLT BOURNE on 11/21/21 1006 Insulin Aspart (Insulin Aspart Flexpen) 100 Unit/1 Ml Insuln.pen, UNIT SQ AC, (Reported) Entered as Reported by: COLT BOURNE on 11/21/21 1006 Insulin Glargine,Hum.rec.anlog (Lantus Solostar) 100 Unit/Ml (3 Ml) Insuln.pen, 35 UNIT SQ HS, (Reported) Entered as Reported by: COLT BOURNE on 07/25/21 0936 Insulin Glargine,Hum.rec.anlog (Lantus Solostar) 100 Unit/Ml (3 Ml) Insuln.pen, 25 UNIT SQ DAILY, (Reported) Entered as Reported by: COLT BOURNE on 07/25/21 0936 Ondansetron (Ondansetron Odt) 4 Mg Tab.rapdis, 4 MG SL Q4H Prescribed by: SANTI SOSA on 05/02/22 0332 Review of Systems Review of Systems Constitutional: see HPI EENTM: see HPI Respiratory: see HPI Cardiovascular: see HPI Gastrointestinal: see HPI Genitourinary: no symptoms reported : No Musculoskeletal: see HPI Skin: no symptoms reported Psychiatric/Neurological: See HPI Hematologic/Lymphatic: No Symptoms Reported Immunological/Allergic: no symptoms reported Past Aqalntk-Kbxwsg-Zliwpy Hx Patient Social History Tobacco Use?: Yes Tobacco type used: Cigarettes Smoking Status: Current Everyday Smoker Use of E-Cig and/or Vaping dev: Yes E-Cig or Vaping type used: Nicotine Substance use?: Yes Substance type: Marijuana Alcohol Use?: No Immunizations Up To Date Tetanus Booster (TDap): Less than 5yrs PED Vaccines UTD: Yes First/Initial COVID19 Vaccinat: APR 2021 Second COVID19 Vaccination [place]: MAY 2021 Third COVID19 Vaccination Date: APR 2021 Seasonal Allergies Seasonal Allergies: No Past Medical History Surgery/Hospitalization HX: 08/2021--TRANSFERRED FROM [facility] FOR DKA AND CANNIBIS HYPEREMESIS DM Surgeries: No Respiratory: No Currently Using CPAP: No Currently Using BIPAP: No Cardiac: Yes (TACHYCARDIA) Palpitations Neurological: No Reproductive Disorders: No Female Reproductive Disorders: Denies Sexually Transmitted Disease: No HIV/AIDS: No Genitourinary: Yes Bladder Infection Gastrointestinal: Yes (CANNABIS HYPEREMESIS; CHRONIC 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 DX AGE 12) Diabetes, Insulin dep HEENT: No Loss of Vision: Denies Hearing Impairment: Denies Cancer: No Psychosocial: Yes Anxiety, Depression Integumentary: No Blood Disorders: No Adverse Reaction/Blood Tranf: No Family Medical History No Pertinent Family Hx Physical Exam Vital Signs Vital Signs - First Documented 05/01/22 23:42 Temp 36.9 Pulse 135 Resp 20 B/P (MAP) 130/91 (104) Pulse Ox 98 O2 Delivery Room Air Capillary Refill : Less Than 3 Seconds Height, Weight, BMI Height: 5'9.00" Weight: 255lbs. 0oz. 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 Norm as Tested Skin: Normal Color, Warm/Dry Procedures/Interventions Date of ETT Placement: Feb 18, 2021 Time of ETT Placement: 1431 Progress/Results/Core Measures Suspected Sepsis SIRS Temperature: Pulse: 135 Respiratory Rate: 20 Laboratory Tests 05/02/22 00:25: White Blood Count 7.4 Blood Pressure 130 /91 Mean: 104 Laboratory Tests 05/02/22 00:25: Creatinine 0.80, Platelet Count 465H 05/02/22 02:42: Creatinine 0.76 Results/Orders Lab Results Laboratory Tests Test 05/01/22 23:44 05/01/22 23:45 05/02/22 00:25 05/02/22 00:40 Range/Units Glucometer 275 H 70-110 MG/DL Influenza Type A (RT-PCR) Not Detected Not Detecte Influenza Type B (RT-PCR) Not Detected Not Detecte SARS-CoV-2 RNA (RT-PCR) Not Detected Not Detecte White Blood Count 7.4 4.3-11.0 10^3/uL Red Blood Count 3.81 3.80-5.11 10^6/uL Hemoglobin 11.2 L 11.5-16.0 g/dL Hematocrit 34 L 35-52 % Mean Corpuscular Volume 90 80-99 fL Mean Corpuscular Hemoglobin 29 25-34 pg Mean Corpuscular Hemoglobin Concent 33 32-36 g/dL Red Cell Distribution Width 13.6 10.0-14.5 % Platelet Count 465 H 130-400 10^3/uL Mean Platelet Volume 10.8 9.0-12.2 fL Immature Granulocyte % (Auto) 0 % Neutrophils (%) (Auto) 55 42-75 % Lymphocytes (%) (Auto) 36 12-44 % Monocytes (%) (Auto) 8 0-12 % Eosinophils (%) (Auto) 1 0-10 % Basophils (%) (Auto) 1 0-10 % Neutrophils # (Auto) 4.0 1.8-7.8 10^3/uL Lymphocytes # (Auto) 2.7 1.0-4.0 10^3/uL Monocytes # (Auto) 0.6 0.0-1.0 10^3/uL Eosinophils # (Auto) 0.1 0.0-0.3 10^3/uL Basophils # (Auto) 0.0 0.0-0.1 10^3/uL Immature Granulocyte # (Auto) 0.0 0.0-0.1 10^3/uL Sodium Level 138 135-145 MMOL/L Potassium Level 4.7 3.6-5.0 MMOL/L Chloride Level 102 98-107 MMOL/L Carbon Dioxide Level 17 L 21-32 MMOL/L Anion Gap 19 H 5-14 MMOL/L Blood Urea Nitrogen 19 H 7-18 MG/DL Creatinine 0.80 0.60-1.30 MG/DL Estimat Glomerular Filtration Rate 109 BUN/Creatinine Ratio 24 Glucose Level 280 H 70-105 MG/DL Calcium Level 9.1 8.5-10.1 MG/DL C-Reactive Protein High Sensitivity 0.36 0.00-0.50 MG/DL Serum Test, Qualitative NEGATIVE NEGATIVE Urine Color YELLOW Urine Clarity CLEAR Urine pH 5.5 5-9 Urine Specific [place] 1.025 H 1.016-1.022 Urine Protein NEGATIVE NEGATIVE Urine Glucose (UA) 3+ H NEGATIVE Urine Ketones TRACE H NEGATIVE Urine Nitrite NEGATIVE NEGATIVE Urine Bilirubin NEGATIVE NEGATIVE Urine Urobilinogen 0.2 < = 1.0 MG/DL Urine Leukocyte Esterase TRACE H NEGATIVE Urine RBC (Auto) TRACE-I H NEGATIVE Urine RBC 0-2 /HPF Urine WBC 50-100 H /HPF Urine Squamous Epithelial Cells 2-5 /HPF Urine Crystals NONE /LPF Urine Bacteria FEW H /HPF Urine Casts NONE /LPF Urine Mucus NEGATIVE /LPF Urine Culture Indicated YES Test 05/02/22 01:59 05/02/22 02:00 05/02/22 02:42 Range/Units Glucometer 208 H 70-110 MG/DL Group A Streptococcus Screen NEGATIVE NEGATIVE Sodium Level 136 135-145 MMOL/L Potassium Level 4.6 3.6-5.0 MMOL/L Chloride Level 102 98-107 MMOL/L Carbon Dioxide Level 17 L 21-32 MMOL/L Anion Gap 17 H 5-14 MMOL/L Blood Urea Nitrogen 18 7-18 MG/DL Creatinine 0.76 0.60-1.30 MG/DL Estimat Glomerular Filtration Rate 116 BUN/Creatinine Ratio 24 Glucose Level 254 H 70-105 MG/DL Calcium Level 8.7 8.5-10.1 MG/DL My Orders Orders - SANTI NOBLES MD Covid 19 Inhouse Test (05/01/22 23:22) Influenza A And B By Pcr (05/01/22 23:22) Accucheck Stat ONCE (05/01/22 23:39) Ondansetron Injection (Zofran Injectio (05/02/22 00:15) Ed Iv/Invasive Line Start (05/02/22 00:07) Lactated Ringers (Lr 1000 Ml Iv Solution (05/02/22 00:15) Acetaminophen Tablet (Tylenol Tablet) (05/02/22 00:15) Basic Metabolic Panel (05/02/22 00:09) Ua Culture If Indicated (05/02/22 00:56) Hcg,Qualitative Serum (05/02/22 00:56) Ns Iv 1000 Ml (Sodium Chloride 0.9%) (05/02/22 01:00) Insulin (Regular) Human (Novolin R (Per (05/02/22 00:56) Basic Metabolic Panel (05/02/22 02:30) Accucheck Stat ONCE (05/02/22 01:14) Urine Culture (05/02/22 00:40) Cbc With Automated Diff (05/02/22 01:56) Hs C Reactive Protein (05/02/22 01:56) Rapid Strep A Screen (05/02/22 01:56) Ketorolac Injection (Toradol Injection) (05/02/22 02:00) Ceftriaxone 1 Gm Pre-Mix (Rocephin 1 Gm (05/02/22 02:26) Medications Given in ED Current Medications Medications Dose Ordered Sig/Thierno Route Start Time Stop Time Status Last Admin Dose Admin Acetaminophen 1,000 mg ONCE ONCE PO 05/02/22 00:15 05/02/22 00:16 DC 05/02/22 00:21 1,000 MG Ketorolac Tromethamine 15 mg ONCE ONCE IVP 05/02/22 02:00 05/02/22 02:01 DC 05/02/22 02:41 15 MG Lactated Ringer's 1,000 ml @ 0 mls/hr Q0M ONCE IV 05/02/22 00:15 05/02/22 00:16 DC 05/02/22 00:26 999 MLS/HR Ondansetron HCl 8 mg ONCE ONCE IVP 05/02/22 00:15 05/02/22 00:16 DC 05/02/22 00:26 8 MG Vital Signs/I&O 05/01/22 05/02/22 23:42 03:37 Temp 36.9 36.9 Pulse 135 114 Resp 20 16 B/P (MAP) 130/91 (104) 110/47 Pulse Ox 98 96 O2 Delivery Room Air Room Air Capillary Refill : Less Than 3 Seconds Blood Pressure Mean: 104 Point of Care Testing Finger Stick Blood Glucose: 208 Blood Glucose Action Taken: DR. NOBLES NOTIFIED. Progress Note #1: Time: 02:15 Progress Note Patient was treated with Zofran, Tylenol, and IV fluids. Labs were obtained because of her tachycardia and history of DKA. Bicarb was 17. Patient may have some mild DKA in progress. A second liter of IV fluid was ordered along with 5 units of insulin by IV route. We will finish that treatment and then check a BMP again. Pyuria was found on urinalysis. UTI will be treated with Rocephin. Repeat blood sugar was 209 after receiving the insulin and first liter of fluids. Repeat BMP will be obtained at 0230. Progress Note #2: Time: 03:53 Progress Note After 2 L of IV fluid and 5 units of IV insulin, BMP demonstrated no improvement or worsening in bicarb. Tachycardia had improved by about 10 bpm. Rocephin was administered for treatment of urinary tract infection. Rocephin was selected because patient had a recent GBS urinary tract infection demonstrated on urine culture. A offered and encouraged admission to monitor her closely for diabetes control and to ensure she did not develop escalating DKA. Patient acknowledged the concern but declined admission. She commits to returning to the emergency room if she has any worsening in condition. I stressed to the importance of tight control of her diabetes and aggressive hydration along with antibiotic therapy. COVID-19 test was negative but patient does have symptoms consistent with COVID-19 after exposure. I encouraged her to get a repeat test in 1 to 2 days if COVID symptoms persist. Lab pattern did not suggest COVID-19 as CRP was normal and there was no relative lymphopenia appreciated. Labs were also not consistent with sepsis as CRP was normal, there was no leukocytosis, and WBC differential demonstrated lymphocytic shift. Patient likely has combination of urinary tract infection and non-COVID/noninfluenza viral illness. She was discharged home in stable condition. Departure Impression Primary Impression: UTI (urinary tract infection) Qualified Codes: N39.0 - Urinary tract infection, site not specified Additional Impressions: Hyperglycemia Type 1 diabetes mellitus Qualified Codes: E10.69 - Type 1 diabetes mellitus with other specified complication Exposure to COVID-19 virus Disposition: HOME, SELF-CARE Condition: Improved Departure-Patient Inst. Decision time for Depature: 02:52 Referrals: COLT LAMBERT DO (PCP/Family) Primary Care Physician Patient Instructions: COVID-19 ED, Diabetic Ketoacidosis Add. Discharge Instructions: It is very important that you monitor your blood sugars closely for the next few days. Please check your blood sugars a minimum of every 4 hours and follow instructions previously given for insulin administration. Drink plenty of clear liquids to stay well-hydrated. Complete your antibiotics as prescribed. They need to be started within 24 hours of departing the emergency room. Use the Zofran as prescribed for nausea and vomiting. Have an extremely low threshold for returning to the emergency room for worsening symptoms. It is entirely possible that you have COVID-19 and your test in the emergency room was a false negative. If you continue to have COVID symptoms, consider repeat testing in 24 to 48 hours. Remain in quarantine as though you have COVID-19 as long as you have symptoms concerning for COVID-19. Call with questions or concerns. All discharge instructions reviewed with patient and/or family. Voiced understanding. Scripts Ondansetron (Ondansetron Odt) 4 Mg Tab.rapdis 4 MG SL Q4H, #10 TAB Prov: SANTI NOBLES MD 05/02/22 Cefdinir (Cefdinir) 300 Mg Capsule 300 MG PO BID, #14 CAP 0 Refills Prov: SANTI NOBLES MD 05/02/22 Work/School Note: Work Release Form Date Seen in the Emergency Department: May 02, 2022 Return to Work: May 04, 2022 Restrictions: Return-No Fever (24hrs), Return-No Vomiting(24hrs) Other Restrictions Listed Below: Should be retested for COVID19 before return to work if symptoms persist. Copy Copies To 1: COLT LAMBERT JOSHUA T MD May 02, 2022 02:25
[2022-05-02 02:58] LABS: POTASSIUM 4.6 MMOL/L (3.6-5.0)
[2022-05-02 02:59] LABS: CALCIUM 8.7 MG/DL (8.5-10.1)
[2022-05-02 03:04] LABS: CREATININE SERUM 0.76 MG/DL (0.60-1.30)
[2022-05-02] MEDS ORDERED: ONDA4TAB11 SL (03:32)
[2022-05-02] MEDS ORDERED: CEFD300C3 PO (03:32)
[2022-05-02 03:37] VITALS: BP 110/47
== END 2022-05-02 03:47 | disposition home or self-care (01) ==
LOC: EDUNIT# 23:08 → ER 23:12
DX: N39.0 Urinary tract infection, site not specified (principal); E10.65 Type 1 diabetes mellitus with hyperglycemia; R00.0 Tachycardia, unspecified; F17.210 Nicotine dependence, cigarettes, uncomplicated; Z20.822 Contact with and (suspected) exposure to COVID-19
CPT/HCPCS: 36415; 80048; 81000; 82947; 84703; 85025; 86141; 87088; 87430; 87636

== ENCOUNTER 2022-05-31 23:40 | Emergency (ER) | payer BC, MEDICAID ==
[~2022-05-31] VITALS: Ht 175 cm; Wt 79.4 kg
[~2022-05-31 23:40] MED LIST changes: +ONDA4TAB11 SL
--- NOTE | 2022-06-01 01:17 | ED General ---
General Stated Complaint: LOW BLOOD SUGAR Source of Information: Patient History of Present Illness Date Seen by Provider: Jun 01, 2022 Time Seen by Provider: 23:43 Initial Comments PT ARRIVES VIA POV FROM HOME C/O LOW BLOOD SUGAR PT IS TYPE 1 DIABETIC, HAS CGM AND INSULIN PUMP HER MONITOR READ LOW--CUT OFF IS 40--AND SHE FELT VERY WEAK AND TIRED--AT 2300 MALORIE BOYFRIEND WAS AT WORK AT [employer] AND CAME HOME AND HE BROUGHT HOME A CINNAMON ROLL FOR HER TO EAT AND STATES BLOOD SUGAR WOULDN'T COME UP, SO CAME HERE LAST ATE AT 1900--BAKED POTATO AND HAM. DOES NOT KNOW WHAT HER BLOOD SUGAR WAS AT THAT TIME, BUT GAVE HERSELF 4 UNITS OF REGULAR INSULIN AT 1900 SHE DOES NOT KNOW HOW MUCH INSULIN SHE HAS HAD DURING THE REST OF THE DAY. SHE DID SWITCH SITES FOR HER PUMP TODAY--FROM RLQ TO LLQ OF ABDOMEN NO NAUSEA/VOMITING NO URINARY SYMPTOMS NO FEVER OR RECENT ILLNESS FELT FINE EARLIER TODAY. LMP 1 MONTH AGO, NO CONTROL GLUCOSE IS 133 ON ARRIVAL HERE. PCP: FLORESITA-MANUELA, PEPE LAMBERT Allergies and Home Medications Allergies Coded Allergies: bismuth subsalicylate (Verified Allergy, Unknown, 10/27/21) Patient Home Medication List Home Medication List Reviewed: Yes Acetaminophen (Tylenol Extra Strength) 500 Mg Tablet, 1,000 MG PO Q8H PRN for PAIN-MILD (1-4), (Reported) Entered as Reported by: COLT BOURNE on 02/16/22 1100 Cefdinir (Cefdinir) 300 Mg Capsule, 300 MG PO BID Prescribed by: SANTI SOSA on 05/02/22 0332 Ibuprofen (Ibuprofen) 200 Mg Tablet, 400-600 MG PO Q8H PRN for PAIN-MILD (1-4), (Reported) Entered as Reported by: COLT BOURNE on 11/21/21 1006 Insulin Aspart (Insulin Aspart Flexpen) 100 Unit/1 Ml Insuln.pen, UNIT SQ AC, (Reported) Entered as Reported by: COLT BOURNE on 11/21/21 1006 Insulin Glargine,Hum.rec.anlog (Lantus Solostar) 100 Unit/Ml (3 Ml) Insuln.pen, 35 UNIT SQ HS, (Reported) Entered as Reported by: COLT BOURNE on 07/25/21 0936 Insulin Glargine,Hum.rec.anlog (Lantus Solostar) 100 Unit/Ml (3 Ml) Insuln.pen, 25 UNIT SQ DAILY, (Reported) Entered as Reported by: COLT BOURNE on 07/25/21 0936 Ondansetron (Ondansetron Odt) 4 Mg Tab.rapdis, 4 MG SL Q4H Prescribed by: SANTI SOSA on 05/02/22 0332 Review of Systems Review of Systems Constitutional: see HPI; No diaphoresis; malaise, weakness EENTM: no symptoms reported Respiratory: no symptoms reported Cardiovascular: no symptoms reported Gastrointestinal: no symptoms reported Genitourinary: no symptoms reported : No LMP: May 01, 2022 Musculoskeletal: no symptoms reported Skin: no symptoms reported Psychiatric/Neurological: No Symptoms Reported Hematologic/Lymphatic: No Symptoms Reported Immunological/Allergic: no symptoms reported Past Urwkyfo-Lowiqe-Ambmkp Hx Patient Social History Tobacco Use?: No Use of E-Cig and/or Vaping dev: Yes E-Cig or Vaping type used: Nicotine Use of E-Cig and/or Vaping Tom: Current Everyday User Substance use?: Yes Substance type: Marijuana Substance frequency: Daily Alcohol Use?: Yes Alcohol type: Hard Liquor Alcohol Frequency: Once in a while Immunizations Up To Date Tetanus Booster (TDap): Less than 5yrs PED Vaccines UTD: Yes First/Initial COVID19 Vaccinat: APR 2021 Second COVID19 Vaccination [place]: MAY 2021 Third COVID19 Vaccination Date: APR 2021 Seasonal Allergies Seasonal Allergies: No Past Medical History Surgery/Hospitalization HX: 08/2021--TRANSFERRED FROM [facility] FOR DKA AND CANNIBIS HYPEREMESIS DM Surgeries: No Respiratory: No Currently Using CPAP: No Currently Using BIPAP: No Cardiac: Yes (TACHYCARDIA) Palpitations Neurological: No Reproductive Disorders: No Female Reproductive Disorders: Denies Sexually Transmitted Disease: No HIV/AIDS: No Genitourinary: Yes Bladder Infection Gastrointestinal: Yes (CANNABIS HYPEREMESIS; CHRONIC 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 DX AGE 12) Diabetes, Insulin dep HEENT: No Loss of Vision: Denies Hearing Impairment: Denies Cancer: No Psychosocial: Yes Anxiety, Depression Integumentary: No Blood Disorders: No Adverse Reaction/Blood Tranf: No Family Medical History No Pertinent Family Hx MULTITUDE OF VISITS, MANY FOR DKA/DIABETES RELATED ISSUES. ALSO MULTIPLE VISITS FOR CHRONIC NAUSEA/VOMITING/ABDOMINAL PAIN DUE TO CANNABIS HYPEREMESIS Physical Exam Vital Signs Capillary Refill : Height, Weight, BMI Height: 5'9.00" Weight: 255lbs. 0oz. 115.585894um; 24.86 BMI Method:Stated General Appearance: No Apparent Distress, WD/WN HEENT: Normal ENT Inspection Neck: Normal Inspection Respiratory: Normal Breath Sounds, No Accessory Muscle Use, No Respiratory Distress Cardiovascular: Regular Rate, Rhythm, No Murmur Gastrointestinal: Non Tender, Soft, Other (PUMP SITE APPEARS NORMAL. 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 Norm as Tested Skin: Normal Color, Warm/Dry, Tattoos/Piercings Procedures/Interventions Date of ETT Placement: Feb 18, 2021 Time of ETT Placement: 1432 Progress/Results/Core Measures Suspected Sepsis SIRS Temperature: Pulse: Respiratory Rate: Laboratory Tests 05/31/22 00:01: Blood Pressure / Mean: Laboratory Tests 05/31/22 00:01: Results/Orders Lab Results Laboratory Tests Test 05/31/22 00:01 Range/Units My Orders Orders - LADONNA RANGEL DO Cbc With Automated Diff (05/31/22 00:01) Amylase (05/31/22 00:01) Comprehensive Metabolic Panel (05/31/22 00:01) Lipase (05/31/22 00:01) Hcg,Qualitative Serum (05/31/22 00:01) Drug Screen Stat (Urine) (05/31/22 00:01) Urinalysis (05/31/22 00:01) Vital Signs/I&O Capillary Refill : Progress Note : Progress Note NO DETERIORATION IN PT'S CONDITION DURING ER STAY PT STATES SHE FEELS MUCH BETTER AT DISMISSAL COMPUTERS DOWN FOR PT'S ER STAY Departure Impression Primary Impression: Hypoglycemia associated with diabetes Disposition: 01 HOME, SELF-CARE Condition: Improved Departure-Patient Inst. Decision time for Depature: 01:24 Referrals: COLT LAMBERT DO (PCP/Family) Primary Care Physician Patient Instructions: Diabetes Type 1, Adult (DC), Low Blood Sugar in People With Diabetes Add. Discharge Instructions: TAKE YOUR MEDICATIONS PRESCRIBED EAT HIGH PROTEIN MEALS AND SNACKS FOLLOW UP WITH YOUR DR THIS WEEK FOR FURTHER CARE, CALL IN THE MORNING TO SCHEDULE APPOINTMENT LADONNA RANGEL DO Jun 01, 2022 01:17
[2022-06-01 01:30] VITALS: BP 112/82
[2022-06-01 01:34] LABS: BILIRUBIN,URINE NEGATIVE (NEGATIVE); CLARITY,URINE CLEAR; COLOR,URINE YELLOW; GLUCOSE, URINE (UA) 3+ (NEGATIVE); KETONES,URINE NEGATIVE (NEGATIVE); NITRITE,URINE NEGATIVE (NEGATIVE); PROTEIN,URINE NEGATIVE (NEGATIVE)
[2022-06-01 01:35] LABS: AMPHETAMINE SCREEN, URINE NEGATIVE (NEGATIVE); BACTERIA,URINE NEGATIVE /HPF; BARBITURATE SCREEN URINE NEGATIVE (NEGATIVE); BENZODIAZEPINES SCREEN URINE NEGATIVE (NEGATIVE); CANNABINOID SCREEN, URINE NEGATIVE (NEGATIVE); COCAINE SCREEN URINE NEGATIVE (NEGATIVE); LEUKOCYTE ESTERASE ,URINE NEGATIVE (NEGATIVE); METHADONE STAT NEGATIVE (NEGATIVE); OPIATE SCREEN URINE NEGATIVE (NEGATIVE); OXYCODONE STAT NEGATIVE (NEGATIVE); PROPOXYPHENE STAT NEGATIVE (NEGATIVE); TRICYCLIC ANTIDEPRESSANTS SCRE NEGATIVE (NEGATIVE)
[2022-06-01 01:36] LABS: POTASSIUM 3.8 MMOL/L (3.6-5.0)
[2022-06-01 01:37] LABS: ALBUMIN 4.2 GM/DL (3.2-4.5); BILIRUBIN,TOTAL 0.4 MG/DL (0.1-1.0); CALCIUM 9.6 MG/DL (8.5-10.1); CREATININE SERUM 0.76 MG/DL (0.60-1.30); TOTAL PROTEIN 7.7 GM/DL (6.4-8.2)
[2022-06-01 01:38] LABS: HEMATOCRIT 38 % (35-52); HEMOGLOBIN 12.5 g/dL (11.5-16.0); MEAN CORPUSCULAR HEMOGLOBIN 29 pg (25-34); MEAN CORPUSCULAR HGB CONC 33 g/dL (32-36); MEAN CORPUSCULAR VOLUME 86 fL (80-99); MEAN PLATELET VOLUME 9.7 fL (9.0-12.2); PLATELET COUNT 369 10^3/uL (130-400); WHITE BLOOD COUNT 6.7 10^3/uL (4.3-11.0)
[2022-06-01 01:39] LABS: BASOPHILS % (AUTO) 0 % (0-10); EOSINOPHILS # (AUTO) 0.1 10^3/uL (0.0-0.3); EOSINOPHILS % (AUTO) 2 % (0-10); LYMPHOCYTES # (AUTO) 2.9 X 10^3 (1.0-4.0); LYMPHOCYTES % (AUTO) 42 % (12-44); MONOCYTES # (AUTO) 0.6 X 10^3 (0.0-1.0); MONOCYTES % (AUTO) 9 % (0-12); NEUTROPHILS # (AUTO) 3.1 X 10^3 (1.8-7.8); NEUTROPHILS % (AUTO) 45 % (42-75)
== END 2022-06-01 01:30 | disposition home or self-care (01) ==
LOC: EDUNIT# 23:40 → ER 23:40
DX: E10.649 Type 1 diabetes mellitus with hypoglycemia without coma (principal); E10.10 Type 1 diabetes mellitus with ketoacidosis without coma; F17.290 Nicotine dependence, other tobacco product, uncomplicated
CPT/HCPCS: 36415; 80053; 80306; 81000; 82150; 83690; 84703; 85025; 99282

== ENCOUNTER 2022-08-14 00:18 | Emergency (ER) | payer BC, MEDICAID ==
[~2022-08-14] VITALS: Ht 175 cm; Wt 97.0 kg
--- NOTE | 2022-08-14 00:41 | ED Upper Extremity ---
General Chief Complaint: Upper Extremity Stated Complaint: RIGHT ARM PAIN/INJ Nursing Triage Note: patient states fell hurt rt arm walking her dog (JEAN MCMAHON) History of Present Illness Date Seen by Provider: Aug 14, 2022 Time Seen by Provider: 00:28 Initial Comments 22 yo female here for R wrist pain. She says she was walking her dog when she fell forward into a ditch in the grass. 7/10 ache that starts at the wrist and radiate up to her elbow. Pt says she landed on her knees and her outstretched hand. Pt tried preventing landing on stomach since she is . Denies hitting her head or any LOC. Denies any abrasions. No CP or SOB. Has not taken any medication for the pain and is currently icing injured area. No other complaints (JEAN MCMAHON) Allergies and Home Medications Allergies Coded Allergies: bismuth subsalicylate (Verified Allergy, Unknown, 10/27/21) Patient Home Medication List Home Medication List Reviewed: Yes (JEAN MCMAHON) Acetaminophen (Tylenol Extra Strength) 500 Mg Tablet, 1,000 MG PO Q8H PRN for PAIN-MILD (1-4), (Reported) Entered as Reported by: COLT BOURNE on 02/16/22 1100 Cefdinir (Cefdinir) 300 Mg Capsule, 300 MG PO BID Prescribed by: SANTI SOSA on 05/02/22 0332 Ibuprofen (Ibuprofen) 200 Mg Tablet, 400-600 MG PO Q8H PRN for PAIN-MILD (1-4), (Reported) Entered as Reported by: COLT BOURNE on 11/21/21 1006 Insulin Aspart (Insulin Aspart Flexpen) 100 Unit/1 Ml Insuln.pen, UNIT SQ AC, (Reported) Entered as Reported by: COLT BOURNE on 11/21/21 1006 Insulin Glargine,Hum.rec.anlog (Lantus Solostar) 100 Unit/Ml (3 Ml) Insuln.pen, 35 UNIT SQ HS, (Reported) Entered as Reported by: COLT BOURNE on 07/25/21 0936 Insulin Glargine,Hum.rec.anlog (Lantus Solostar) 100 Unit/Ml (3 Ml) Insuln.pen, 25 UNIT SQ DAILY, (Reported) Entered as Reported by: COLT BOURNE on 07/25/21 0936 Ondansetron (Ondansetron Odt) 4 Mg Tab.rapdis, 4 MG SL Q4H Prescribed by: SANTI SOSA on 05/02/22 0332 Review of Systems Constitutional: no symptoms reported EENTM: no symptoms reported Respiratory: no symptoms reported Cardiovascular: no symptoms reported Gastrointestinal: no symptoms reported Genitourinary: no symptoms reported Musculoskeletal: joint swelling (Erythema and echymosis of radial aspect of right wrist ), other (erythema and echymosis on radial aspect of right wrist ) Skin: no symptoms reported Psychiatric/Neurological: No Symptoms Reported (JEAN MCMAHON) Past Zjkltio-Nsqofr-Prtfnm Hx Immunizations Up To Date Tetanus Booster (TDap): Less than 5yrs PED Vaccines UTD: Yes First/Initial COVID19 Vaccinat: APR 2021 Second COVID19 Vaccination [place]: MAY 2021 Third COVID19 Vaccination Date: APR 2021 (JEAN MCMAHON) Seasonal Allergies Seasonal Allergies: No (JEAN MCMAHON) Past Medical History Surgery/Hospitalization HX: DM 1 Surgeries: No Respiratory: No Currently Using CPAP: No Currently Using BIPAP: No Cardiac: Yes (TACHYCARDIA) Palpitations Neurological: No Reproductive Disorders: No Female Reproductive Disorders: Denies Sexually Transmitted Disease: No HIV/AIDS: No Genitourinary: Yes Bladder Infection Gastrointestinal: Yes (CANNABIS HYPEREMESIS; CHRONIC 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 DX AGE 12) Diabetes, Insulin dep HEENT: No Loss of Vision: Denies Hearing Impairment: Denies Cancer: No Psychosocial: Yes Anxiety, Depression Integumentary: No Blood Disorders: No Adverse Reaction/Blood Tranf: No (JEAN MCMAHON) Family Medical History No Pertinent Family Hx MULTITUDE OF VISITS, MANY FOR DKA/DIABETES RELATED ISSUES. ALSO MULTIPLE VISITS FOR CHRONIC NAUSEA/VOMITING/ABDOMINAL PAIN DUE TO CANNABIS HYPEREMESIS (JEAN MCMAHON) Physical Exam Vital Signs Vital Signs - First Documented 08/14/22 00:23 Temp 36.9 Pulse 107 Resp 20 B/P (MAP) 133/56 (81) Pulse Ox 99 O2 Delivery Room Air (SANTI MA MD) Vital Signs Capillary Refill : Less Than 3 Seconds (JEAN MCMAHON) Height, Weight, BMI Height: 5'9.00" Weight: 255lbs. 0oz. 115.556277bo; 31.00 BMI Method:Stated General Appearance: WD/WN, no apparent distress HEENT: PERRL/EOMI, normal ENT inspection, TMs normal, pharynx normal Neck: non-tender, full range of motion, supple, normal inspection Cardiovascular: regular rate, rhythm, no edema, no gallop, no JVD, no murmur Respiratory: chest non-tender, lungs clear, normal breath sounds, no respiratory distress, no accessory muscle use Gastrointestinal: normal bowel sounds, non tender, soft, no organomegaly, no pulsatile mass Back: normal inspection, no CVA tenderness, no vertebral tenderness Shoulder: normal inspection, non-tender, no evidence of injury, normal ROM Elbow/Forearm: normal inspection, non-tender, no evidence of injury, normal ROM Wrist: Yes asymmetry, Yes ecchymosis, Yes limited ROM, Yes swelling Hand: normal inspection, non-tender, normal ROM, Right Neurologic/Tendon: normal sensation Neurologic/Psychiatric: no motor/sensory deficits, alert, normal mood/affect, oriented x 3 Skin: normal color, warm/dry Lymphatic: no adenopathy (JEAN MCMAHON) Procedures/Interventions Date of ETT Placement: Feb 18, 2021 Time of ETT Placement: 1431 (JEAN MCMAHON) Progress/Results/Core Measures Results/Orders My Orders Orders - SANTI MA MD Wrist, Right, 3 Views Or More (08/14/22 00:45) (SANTI MA MD) Vital Signs/I&O 08/14/22 08/14/22 00:23 01:26 Temp 36.9 36.9 Pulse 107 107 Resp 20 20 B/P (MAP) 133/56 (81) 133/92 Pulse Ox 99 99 O2 Delivery Room Air Room Air (SANTI MA MD) Blood Pressure Mean: 81 Progress Progress Note : Time: 00:[address] Ma examined pt and discussed x-ray of wrist (JEAN MCMAHON) Progress Note : Progress Note X-ray revealed no fractures. Patient was placed in a Colles' splint for comfort and immobilization until radiologist can review films. See discharge instructions for further discussion. (SANTI MA MD) Diagnostic Imaging Diagonstic Imaging: Xray Plain Films/CT/US/NM/MRI: other (Right wrist) Comments X-rays were initially viewed by me with no report available. Report was later reviewed as below: NAME: JOSE QURESHI [facility] REC#: [id number] PT STATUS: DEP ER : 2002 PHYSICIAN: SANTI MA MD ADMIT DATE: 08/14/22/ER Draft Date of Exam:08/14/22 WRIST, RIGHT, 3 VIEWS OR MORE INDICATION: Post fall, pain TECHNIQUE: 3 views of the right wrist CORRELATION STUDY: None FINDINGS: The osseous structures of the wrist have an unremarkable appearance. Alignment is anatomic. There is no acute bony abnormality. The visualized soft tissues appearing unremarkable. IMPRESSION: 1. Negative examination of the wrist. Dictated on workstation # [id number] Dict: 08/14/22 0737 Trans: 08/14/22 0738 DO [id number] Interpreted by: OMAR BALDWIN DO (SANTI MA MD) Departure Impression Primary Impression: Right wrist injury Qualified Codes: S69.91XA - Unspecified injury of right wrist, hand and finger(s), initial encounter Additional Impression: Fall on same level as cause of accidental injury Disposition: 01 HOME, SELF-CARE Condition: Stable Departure-Patient Inst. Decision time for Depature: 01:19 (SANTI MA MD) Referrals: COLT LAMBERT DO (PCP/Family) Primary Care Physician Patient Instructions: Common Wrist Injuries (DC) Add. Discharge Instructions: No fractures or dislocations were appreciated by the ER provider on review of your x-rays. Please call after 8:00 this morning to obtain the official radiologist's interpretation of your x-rays to be sure there are no fractures or dislocations overlooked by the ER provider. You may use Tylenol (acetaminophen) up to 1000 mg every 6 hours as needed. Use the wrist splint for support continuously until the radiologist x-ray report is known. If there is any concern of fracture, use it continuously until you follow-up with an orthopedic provider. If there is no concern for fracture then simply use the splint as desired for comfort. Return to care as needed. Call with questions or concerns. All discharge instructions reviewed with patient and/or family. Voiced understanding. Medical Student Attestation and Attending Note: I have personally interviewed and examined this patient along with Rick Mcmahon, MS 3. I have reviewed student documentation including history, physical, and assessments. I agree with the documentation except where otherwise noted. Exam: General: Alert, oriented, no acute distress, well developed HEENT: Normocephalic and atraumatic Heart: Regular rate and rhythm without murmur Lungs: Clear to auscultation bilaterally with normal effort Extremities. Tenderness in the dorsal right wrist and extending up to the distal forearm. 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 Neuropsych: Alert, oriented, no focal deficits Skin: Warm and dry without rashes (SANTI MA MD) JEAN MCMAHON Aug 14, 2022 00:41 SANTI MA MD Aug 14, 2022 01:21
[2022-08-14 01:26] VITALS: BP 133/92
--- NOTE | 2022-08-14 07:38 | Diagnostic Imaging Report ---
INDICATION: Post fall, pain TECHNIQUE: 3 views of the right wrist CORRELATION STUDY: None FINDINGS: The osseous structures of the wrist have an unremarkable appearance. Alignment is anatomic. There is no acute bony abnormality. The visualized soft tissues appearing unremarkable. IMPRESSION: 1. Negative examination of the wrist. Dictated by: Dictated on workstation # [id number]
== END 2022-08-14 01:27 | disposition home or self-care (01) ==
LOC: EDUNIT# 00:18 → ER 00:19
DX: S60.211A Contusion of right wrist, initial encounter (principal); E10.9 Type 1 diabetes mellitus without complications; Z79.4 Long term (current) use of insulin; Z28.310 Unvaccinated for COVID-19; W18.30XA Fall on same level, unspecified, initial encounter; Y93.K1 Activity, walking an animal
CPT/HCPCS: 73110

== ENCOUNTER 2022-08-16 21:33 | Inpatient (IN) | payer BC, MEDICAID ==
[~2022-08-16] VITALS: Ht 175.3 cm; Wt 103.0 kg
[2022-08-16] MEDS ORDERED: NS IV 1000 ML 1,000 ML IV SCH ×2 (22:00→23:00)
[2022-08-16 22:14] LABS: BASOPHILS % (AUTO) 0 % (0-10); EOSINOPHILS % (AUTO) 0 % (0-10); HEMATOCRIT 40 % (35-52); HEMOGLOBIN 13.3 g/dL (11.5-16.0); LYMPHOCYTES # (AUTO) 1.2 10^3/uL (1.0-4.0); LYMPHOCYTES % (AUTO) 10 % (12-44); MEAN CORPUSCULAR HEMOGLOBIN 26 pg (25-34); MEAN CORPUSCULAR HGB CONC 34 g/dL (32-36); MEAN CORPUSCULAR VOLUME 77 fL (80-99); MEAN PLATELET VOLUME 10.4 fL (9.0-12.2); MONOCYTES # (AUTO) 0.3 10^3/uL (0.0-1.0); MONOCYTES % (AUTO) 3 % (0-12); NEUTROPHILS # (AUTO) 10.4 10^3/uL (1.8-7.8); NEUTROPHILS % (AUTO) 86 % (42-75); PLATELET COUNT 306 10^3/uL (130-400); WHITE BLOOD COUNT 12.1 10^3/uL (4.3-11.0)
--- NOTE | 2022-08-16 22:16 | ED General ---
General Chief Complaint: OB < 20 WEEKS Stated Complaint: HIGH BLOOD SUGAR 516 - 13 WKS PREG - VOMIT/CRAMPIN Nursing Triage Note: PT TO ED BY POV WITH C/O N/V AND ABD CRAMPING X 1 HR. 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 PT REPORTS SHE FEELS LIKE SHE IS IN DKA AND HAS SWEET TASTE IN HER MOUTH. PT IS 13 WKS , NO ABNORMAL DISCHARGE OR SPOTTING. Source of Information: Patient History of Present Illness Date Seen by Provider: Aug 16, 2022 Time Seen by Provider: 21:50 Initial Comments PT ARRIVES VIA POV FROM HOME WITH A MALE C/O NAUSEA AND VOMITING THAT BEGAN 1 HOUR AGO. SHE HAS VOMITED TWICE AND HAD DRY HEAVES ONCE 45 MINUTES AGO, SHE HAD LOWER ABDOMINAL CRAMPING--THIS IS NOW GONE NO DIARRHEA NO URINARY SYMPTOMS NO FEVER OR RECENT ILLNESS PT IS 13 WEEKS HAD OB VISIT WITH DIRECTOR EMERGENCY DEPARTMENT AT [facility] 08/01/22. NEXT APPOINTMENT IS 08/18/22 NO VAGINAL BLEEDING OR DISCHARGE NO URINARY SYMPTOMS SHE STATES SHE WAS PRESCRIBED PHENERGAN, BUT HAS NOT TAKEN ANY TODAY. PT IS TYPE 1 DIABETIC. SHE HAS AN INSULIN PUMP. SHE DOES NOT HAVE A CONTINUOUS GLUCOSE MONITOR. SHE STATES THAT HER INSULIN PUMP IS WORKING FINE AND SHE IS NOT OUT OF INSULIN. SHE STATES HER BLOOD SUGARS "WERE PRETTY GOOD EARLIER TODAY--IN THE 200'S" JUST PRIOR TO ARRIVAL, HER BLOOD SUGAR WAS 567, GAVE HERSELF 10 UNITS OF INSULIN AND RECHECKED IT AND BLOOD GLUCOSE WAS 516, SO CAME HERE STATES SHE HAS A SWEET TASTE IN HER MOUTH AND THINKS SHE IS IN DKA PT ALSO HAS CHRONIC NAUSEA/VOMITING/ABDOMINAL PAIN RELATED TO CHRONIC MARIJUANA USE. PT HAS HAD A MULTITUDE OF VISITS HERE--NEARLY ALL ARE FOR DIABETIC RELATED COMPLAINTS, AND MOST ARE FOR DKA. SHE HAS HAD 15 VISITS HERE IN THE LAST YEAR. PCP: [facility] WITH [facility] CORRESPONDENCE CLERK WITH [facility] Allergies and Home Medications Allergies Coded Allergies: bismuth subsalicylate (Verified Allergy, Unknown, 10/27/21) Patient Home Medication List Home Medication List Reviewed: Yes Acetaminophen (Tylenol Extra Strength) 500 Mg Tablet, 1,000 MG PO Q8H PRN for PAIN-MILD (1-4), (Reported) Entered as Reported by: COLT BOURNE on 02/16/22 1100 Cefdinir (Cefdinir) 300 Mg Capsule, 300 MG PO BID Prescribed by: SANTI SOSA on 05/02/22 033 Ibuprofen (Ibuprofen) 200 Mg Tablet, 400-600 MG PO Q8H PRN for PAIN-MILD (1-4), (Reported) Entered as Reported by: COLT BOURNE on 11/21/21 1006 Insulin Aspart (Insulin Aspart Flexpen) 100 Unit/1 Ml Insuln.pen, UNIT SQ AC, (Reported) Entered as Reported by: COLT BOURNE on 11/21/21 1006 Insulin Glargine,Hum.rec.anlog (Lantus Solostar) 100 Unit/Ml (3 Ml) Insuln.pen, 35 UNIT SQ HS, (Reported) Entered as Reported by: COLT BOURNE on 07/25/21 0936 Insulin Glargine,Hum.rec.anlog (Lantus Solostar) 100 Unit/Ml (3 Ml) Insuln.pen, 25 UNIT SQ DAILY, (Reported) Entered as Reported by: COLT BOURNE on 07/25/21 0936 Ondansetron (Ondansetron Odt) 4 Mg Tab.rapdis, 4 MG SL Q4H Prescribed by: SANTI SOSA on 05/02/22 033 Review of Systems Review of Systems Constitutional: no symptoms reported; No fever EENTM: no symptoms reported Respiratory: no symptoms reported; No short of breath Cardiovascular: no symptoms reported Gastrointestinal: see HPI Genitourinary: no symptoms reported : Yes Expected Date of Delivery: Feb 17, 2023 Musculoskeletal: no symptoms reported Skin: no symptoms reported Psychiatric/Neurological: No Symptoms Reported Hematologic/Lymphatic: No Symptoms Reported Immunological/Allergic: no symptoms reported Past Myozpki-Jhjecg-Ozgltm Hx Patient Social History Tobacco Use?: No Use of E-Cig and/or Vaping dev: Yes E-Cig or Vaping type used: Nicotine Use of E-Cig and/or Vaping Tom: Current Everyday User Substance use?: No Alcohol Use?: No Pt feels they are or have been: No Immunizations Up To Date Tetanus Booster (TDap): Less than 5yrs PED Vaccines UTD: Yes Influenza Vaccine Up-to-Date: No; Not Current First/Initial COVID19 Vaccinat: APR 2021 Second COVID19 Vaccination [place]: MAY 2021 Third COVID19 Vaccination Date: APR 2021 COVID19 Vaccine 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: [employer] Seasonal Allergies Seasonal Allergies: No Past Medical History Surgery/Hospitalization HX: DM 1 Surgeries: No Respiratory: No Currently Using CPAP: No Currently Using BIPAP: No Cardiac: Yes (TACHYCARDIA) Palpitations Neurological: No : Yes Expected Date of Delivery: Feb 17, 2023 Last Menstrual Period: Apr 22, 2022 Reproductive Disorders: No Female Reproductive Disorders: Denies Sexually Transmitted Disease: No HIV/AIDS: No Genitourinary: Yes Bladder Infection Gastrointestinal: Yes (CANNABIS HYPEREMESIS; CHRONIC 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 DX AGE 12) Diabetes, Insulin dep HEENT: No Loss of Vision: Denies Hearing Impairment: Denies Cancer: No Psychosocial: Yes Anxiety, Depression Integumentary: No Blood Disorders: No Adverse Reaction/Blood Tranf: No Family Medical History No Pertinent Family Hx MULTITUDE OF VISITS, MANY FOR DKA/DIABETES RELATED ISSUES. ALSO MULTIPLE VISITS FOR CHRONIC NAUSEA/VOMITING/ABDOMINAL PAIN DUE TO CANNABIS HYPEREMESIS Physical Exam Vital Signs Vital Signs - First Documented 08/16/22 21:42 Temp 35.7 Pulse 103 Resp 18 B/P (MAP) 131/70 (90) Pulse Ox 100 O2 Delivery Room Air Capillary Refill : Less Than 3 Seconds Height, Weight, BMI Height: 5'9.00" Weight: 255lbs. 0oz. 115.180557sj; 32.00 BMI Method:Stated General Appearance: No Apparent Distress, WD/WN, Other (DOES NOT APPEAR ILL OR TO BE IN ANY DISCOMFORT OR DISTRESS; AT THE TIME OF MY EXAM. PT STATES SHE IS NOT NAUSEATED AND NOT HAVING ANY ABDOMINAL PAIN OR CRAMPING. ) HEENT: PERRL/EOMI, Moist Mucous Membranes, Other (ORAL MUCOSA MOIST) Neck: Normal Inspection Respiratory: Normal Breath Sounds, No Accessory Muscle Use, No Respiratory Distress Cardiovascular: Regular Rate, Rhythm, No Murmur Gastrointestinal: Normal Bowel Sounds, No Organomegaly, Non Tender, Soft Back: No CVA Tenderness Extremity: Normal Capillary Refill, Normal Inspection, Normal Range of Motion, Non Tender, No Calf Tenderness, No Pedal Edema Neurologic/Psychiatric: Alert, Oriented x3, No Motor/Sensory Deficits, Normal Mood/Affect, shellac polisher II-XII Norm as Tested Skin: Normal Color, Warm/Dry Procedures/Interventions Date of ETT Placement: Feb 18, 2021 Time of ETT Placement: 1432 Progress/Results/Core Measures Suspected Sepsis SIRS Temperature: Pulse: 103 Respiratory Rate: 18 Laboratory Tests 08/16/22 22:07: White Blood Count 12.1H Blood Pressure 131 /70 Mean: 90 Laboratory Tests 08/16/22 22:07: Creatinine 1.14, Platelet Count 306, Total Bilirubin 0.6 Results/Orders Lab Results Laboratory Tests Test 08/16/22 21:49 08/16/22 22:07 08/16/22 22:40 Range/Units Glucometer 490 *H 70-110 MG/DL White Blood Count 12.1 H 4.3-11.0 10^3/uL Red Blood Count 5.14 H 3.80-5.11 10^6/uL Hemoglobin 13.3 11.5-16.0 g/dL Hematocrit 40 35-52 % Mean Corpuscular Volume 77 L 80-99 fL Mean Corpuscular Hemoglobin 26 25-34 pg Mean Corpuscular Hemoglobin Concent 34 32-36 g/dL Red Cell Distribution Width 12.6 10.0-14.5 % Platelet Count 306 130-400 10^3/uL Mean Platelet Volume 10.4 9.0-12.2 fL Immature Granulocyte % (Auto) 1 % Neutrophils (%) (Auto) 86 H 42-75 % Lymphocytes (%) (Auto) 10 L 12-44 % Monocytes (%) (Auto) 3 0-12 % Eosinophils (%) (Auto) 0 0-10 % Basophils (%) (Auto) 0 0-10 % Neutrophils # (Auto) 10.4 H 1.8-7.8 10^3/uL Lymphocytes # (Auto) 1.2 1.0-4.0 10^3/uL Monocytes # (Auto) 0.3 0.0-1.0 10^3/uL Eosinophils # (Auto) 0.0 0.0-0.3 10^3/uL Basophils # (Auto) 0.0 0.0-0.1 10^3/uL Immature Granulocyte # (Auto) 0.1 0.0-0.1 10^3/uL Sodium Level 130 L 135-145 MMOL/L Potassium Level 4.5 3.6-5.0 MMOL/L Chloride Level 100 98-107 MMOL/L Carbon Dioxide Level 9 *L 21-32 MMOL/L Anion Gap 21 H 5-14 MMOL/L Blood Urea Nitrogen 14 7-18 MG/DL Creatinine 1.14 0.60-1.30 MG/DL Estimat Glomerular Filtration Rate 71 BUN/Creatinine Ratio 12 Glucose Level 536 *H 70-105 MG/DL Calcium Level 9.2 8.5-10.1 MG/DL Corrected Calcium 9.2 8.5-10.1 MG/DL Total Bilirubin 0.6 0.1-1.0 MG/DL Aspartate Amino Transf (AST/SGOT) 14 5-34 U/L Alanine Aminotransferase (ALT/SGPT) 12 0-55 U/L Alkaline Phosphatase 90 40-136 U/L Total Protein 7.2 6.4-8.2 GM/DL Albumin 4.0 3.2-4.5 GM/DL Amylase Level 53 25-125 U/L Lipase 12 8-78 U/L Beta-Hydroxybutyrate (Chem panel) 5.39 H 0.00-0.27 MMOL/L Human Chorionic Gonadotropin, Quant 11134 H <5 MIU/ML Serum Alcohol < 10 <10 MG/DL Urine Color YELLOW Urine Clarity CLEAR Urine pH 5.5 5-9 Urine Specific [place] 1.025 H 1.016-1.022 Urine Protein NEGATIVE NEGATIVE Urine Glucose (UA) 3+ H NEGATIVE Urine Ketones 3+ H NEGATIVE Urine Nitrite NEGATIVE NEGATIVE Urine Bilirubin NEGATIVE NEGATIVE Urine Urobilinogen 0.2 < = 1.0 MG/DL Urine Leukocyte Esterase NEGATIVE NEGATIVE Urine RBC (Auto) NEGATIVE NEGATIVE Urine RBC NONE /HPF Urine WBC NONE /HPF Urine Squamous Epithelial Cells 2-5 /HPF Urine Crystals NONE /LPF Urine Bacteria TRACE /HPF Urine Casts NONE /LPF Urine Mucus NEGATIVE /LPF Urine Culture Indicated NO Urine Opiates Screen NEGATIVE NEGATIVE Urine Oxycodone Screen NEGATIVE NEGATIVE Urine Methadone Screen NEGATIVE NEGATIVE Urine Propoxyphene Screen NEGATIVE NEGATIVE Urine Barbiturates Screen NEGATIVE NEGATIVE Ur Tricyclic Antidepressants Screen NEGATIVE NEGATIVE Urine Phencyclidine Screen NEGATIVE NEGATIVE Urine Amphetamines Screen NEGATIVE NEGATIVE Urine Methamphetamines Screen NEGATIVE NEGATIVE Urine Benzodiazepines Screen NEGATIVE NEGATIVE Urine Cocaine Screen NEGATIVE NEGATIVE Urine Cannabinoids Screen NEGATIVE NEGATIVE My Orders Orders - LADONNA RANGEL DO Accucheck Stat ONCE (08/16/22 21:50) Ed Iv/Invasive Line Start (08/16/22 21:50) Monitor-Rhythm Ecg Trace Only (08/16/22 21:50) Alcohol (08/16/22 21:50) Amylase (08/16/22 21:50) Cbc With Automated Diff (08/16/22 21:50) Comprehensive Metabolic Panel (08/16/22 21:50) Drug Screen Stat (Urine) (08/16/22 21:50) Hcg,Quantitative (08/16/22 21:50) Lipase (08/16/22 21:50) Ua Culture If Indicated (08/16/22 21:50) Ed Iv/Invasive Line Start (08/16/22 21:50) Ns Iv 1000 Ml (Sodium Chloride 0.9%) (08/16/22 22:00) Beta Hydroxybutyrate (08/16/22 21:52) Hemoglobin A1c (08/16/22 21:52) Arterial Blood Gas (08/16/22 21:53) Metoclopramide Injection (Reglan Injecti (08/16/22 22:30) Heart Tones (08/16/22 22:52) Diphenhydramine Injection (Benadryl Inje (08/16/22 23:00) Insulin (Regular) Human (Novolin R (Per (08/16/22 23:00) Ed Iv/Invasive Line Start (08/16/22 22:58) Ns Iv 1000 Ml (Sodium Chloride 0.9%) (08/16/22 23:00) Medications Given in ED Current Medications Medications Dose Ordered Sig/Thierno Route Start Time Stop Time Status Last Admin Dose Admin Diphenhydramine HCl 50 mg ONCE ONCE IVP 08/16/22 23:00 08/16/22 23:01 DC 08/16/22 23:05 50 MG Insulin Human Regular 15 unit ONCE ONCE IV 08/16/22 23:00 08/16/22 23:01 DC 08/16/22 23:05 15 UNIT Metoclopramide HCl 10 mg ONCE ONCE IVP 08/16/22 22:30 12 22:31 DC 08/16/22 22:32 10 MG Vital Signs/I&O 08/16/22 21:42 Temp 35.7 Pulse 103 Resp 18 B/P (MAP) 131/70 (90) Pulse Ox 100 O2 Delivery Room Air Capillary Refill : Less Than 3 Seconds Blood Pressure Mean: 90 Point of Care Testing Finger Stick Blood Glucose: 490 Progress Note : Progress Note PT SEEN DURING COMPUTER DOWN TIME PT STATES ON ARRIVAL THAT SHE WILL REFUSE ABG'S PT IS EXTREMELY DRAMATIC AT INTERVALS DURING ER STAY--WITH DRY HEAVING, THEN WITH SUDDEN SCREAMING AND WAILING VERY LOUDLY WITH C/O ABDOMINAL CRAMPING. THEN WILL STOP, EVEN BEFORE MEDICATION IS GIVEN. GIVEN: -IV FLUIDS -REGLAN -BENADRYL -INSULIN SYMPTOMS RESOLVED WITH THE ABOVE MEDICATIONS. NO ACTUAL VOMITING DURING ER STAY NO DETERIORATION IN PT'S CONDITION DURING ER STAY VITALS STABLE. BASED ON CMP PANEL WITH GLUCOSE OF 536, CO2 OF 9, HIGH BETA-HYDROXYBUTYRATE LEVEL, AND 3+ KETONES AND 3+ GLUCOSE IN HER URINE, CLINICALLY SHE IS IN DKA, PT IS REFUSING ABG'S. Departure Communication (Admissions) [id number]--SPOKE WITH DR. SWANSON, HOSPITALIST FOR [facility]. ACCEPTS PT FOR ADMIT. [id number]--REPORT TO E-ICU PHYSICIAN. NO ADDITIONAL RECOMMENDATIONS Impression Primary Impression: DKA (diabetic ketoacidosis) Additional Impressions: Type 1 diabetes mellitus 13 weeks gestation of Disposition: ADMITTED INPATIENT Condition: Stable Admissions Decision to Admit Reason: Admit from ER (General) Decision to Admit/Date: Aug 16, 2022 Time/Decision to Admit Time: 23:00 Departure-Patient Inst. Referrals: COLT LAMBERT DO (PCP/Family) Primary Care Physician LADONNA RANGEL DO Aug 16, 2022 22:16
[2022-08-16] MEDS ORDERED: METOCLOPRAMIDE INJ 10 MG/2 ML (REGLAN) IVP ONE (22:30)
[2022-08-16 22:35] LABS: ALANINE AMINOTRANSFERASE 12 U/L (0-55); ALKALINE PHOSPHATASE 90 U/L (40-136); AMYLASE 53 U/L (25-125); BILIRUBIN,TOTAL 0.6 MG/DL (0.1-1.0); BUN/CREATININE RATIO 12; CALCIUM 9.2 MG/DL (8.5-10.1); CHLORIDE 100 MMOL/L (98-107); CREATININE SERUM 1.14 MG/DL (0.60-1.30); GFR ESTIMATED 71; LIPASE 12 U/L (8-78); POTASSIUM 4.5 MMOL/L (3.6-5.0); SODIUM 130 MMOL/L (135-145); TOTAL PROTEIN 7.2 GM/DL (6.4-8.2)
[2022-08-16 22:36] LABS: CARBON DIOXIDE 9 MMOL/L (21-32)
[2022-08-16 22:37] LABS: GLUCOSE 536 MG/DL (70-105)
[2022-08-16 22:46] LABS: BILIRUBIN,URINE NEGATIVE (NEGATIVE); CLARITY,URINE CLEAR; COLOR,URINE YELLOW; GLUCOSE, URINE (UA) 3+ (NEGATIVE); KETONES,URINE 3+ (NEGATIVE); LEUKOCYTE ESTERASE ,URINE NEGATIVE (NEGATIVE); NITRITE,URINE NEGATIVE (NEGATIVE); PH,URINE 5.5 (5-9); PROTEIN,URINE NEGATIVE (NEGATIVE)
[2022-08-16 22:52] LABS: BACTERIA,URINE TRACE /HPF
[2022-08-16 22:56] LABS: AMPHETAMINE SCREEN, URINE NEGATIVE (NEGATIVE); BARBITURATE SCREEN URINE NEGATIVE (NEGATIVE); BENZODIAZEPINES SCREEN URINE NEGATIVE (NEGATIVE); CANNABINOID SCREEN, URINE NEGATIVE (NEGATIVE); COCAINE SCREEN URINE NEGATIVE (NEGATIVE); METHADONE STAT NEGATIVE (NEGATIVE); OPIATE SCREEN URINE NEGATIVE (NEGATIVE); OXYCODONE STAT NEGATIVE (NEGATIVE); PROPOXYPHENE STAT NEGATIVE (NEGATIVE); TRICYCLIC ANTIDEPRESSANTS SCRE NEGATIVE (NEGATIVE)
[2022-08-16] MEDS ORDERED: inSUlin (REGULAR) HUMAN 1 UNIT/0.01 ML (CHARGE PER UNIT) IV ONE (23:00)
[2022-08-16] MEDS ORDERED: diphenhydrAMINE 50 MG/ML INJ (BENADRYL) IVP ONE (23:00)
[2022-08-16] MEDS ORDERED: METOCLOPRAMIDE INJ 10 MG/2 ML (REGLAN) IVP PRN (23:45)
[2022-08-16] MEDS: 1/2 NS IV SOLUTION 1,000 ML IV SCH (23:45)
[2022-08-16] MEDS ORDERED: ACETAMINOPHEN 500 MG TAB (TYLENOL) PO PRN (23:45)
[2022-08-16] MEDS: POTASSIUM CL 10MEQ/50ML IVPB 50 ML IV SCH (23:45)
[2022-08-16] MEDS ORDERED: diphenhydrAMINE 50 MG/ML INJ (BENADRYL) IV PRN (23:45)
[2022-08-16] MEDS ORDERED: POTASSIUM CL 10MEQ/50ML IVPB 50 ML IV ONE (23:54)
[2022-08-16] MEDS ORDERED: 1/2 NS IV SOLUTION 1,000 ML IV ONE (23:54)
[2022-08-17] MEDS ORDERED: NS IV 1000 ML 1,000 ML IV SCH
[2022-08-17] MEDS ORDERED: D5 1/2 NS 1000 ML IV SOLUTION 1,000 ML IV ONE (01:00)
[2022-08-17 02:12] LABS: CALCIUM 8.8 MG/DL (8.5-10.1); CREATININE SERUM 0.96 MG/DL (0.60-1.30); POTASSIUM 4.1 MMOL/L (3.6-5.0)
[2022-08-17] MEDS ORDERED: NS IV 500 ML 500 ML IV PRN (02:45)
[2022-08-17] MEDS: D5 1/2 NS 1000 ML IV SOLUTION 1,000 ML IV SCH ×5 (03:12→22:38)
[2022-08-17 03:15] LABS: BASOPHILS % (AUTO) 0 % (0-10); EOSINOPHILS % (AUTO) 0 % (0-10); HEMATOCRIT 36 % (35-52); HEMOGLOBIN 12.1 g/dL (11.5-16.0); LYMPHOCYTES % (AUTO) 8 % (12-44); MEAN CORPUSCULAR HEMOGLOBIN 26 pg (25-34); MEAN CORPUSCULAR HGB CONC 34 g/dL (32-36); MEAN CORPUSCULAR VOLUME 76 fL (80-99); MEAN PLATELET VOLUME 11.1 fL (9.0-12.2); MONOCYTES # (AUTO) 0.3 10^3/uL (0.0-1.0); MONOCYTES % (AUTO) 2 % (0-12); NEUTROPHILS # (AUTO) 11.1 10^3/uL (1.8-7.8); NEUTROPHILS % (AUTO) 89 % (42-75); PLATELET COUNT 120 10^3/uL (130-400); WHITE BLOOD COUNT 12.5 10^3/uL (4.3-11.0)
[2022-08-17 03:32] LABS: BAND NEUTROPHILS 3 %; BASOPHILS % (MANUAL) 0 %; EOSINOPHILS % (MANUAL) 0 %; LYMPHOCYTES % (MANUAL) 6 %; MONOCYTES % (MANUAL) 1 %; NEUTROPHILS % (MANUAL) 88 %; PLATELET CLUMPS OCCASIONAL; POTASSIUM 4.4 MMOL/L (3.6-5.0); REACTIVE LYMPHOCYTES 2 %
[2022-08-17 03:34] LABS: CALCIUM 8.4 MG/DL (8.5-10.1)
[2022-08-17 03:38] LABS: CREATININE SERUM 0.91 MG/DL (0.60-1.30); PHOSPHORUS 2.6 MG/DL (2.3-4.7)
[2022-08-17 03:40] LABS: MAGNESIUM 1.7 MG/DL (1.6-2.4)
[2022-08-17] MEDS: 1/2 NS IV SOLUTION 1,000 ML IV SCH ×5 (04:06→19:22)
[2022-08-17] MEDS: POTASSIUM CL 10MEQ/50ML IVPB 50 ML IV SCH ×10 (05:21→23:38)
[2022-08-17] MEDS: MAGNESIUM 1 GM/100 ML IVPB 100 ML IV SCH (05:22)
[2022-08-17] MEDS: KCL 20 MEQ TAB (K-DUR) PO SCH (05:22)
[2022-08-17] MEDS: PRENATAL VITAMIN 1 EA TAB PO SCH (08:13)
[2022-08-17 08:26] LABS: CALCIUM 8.4 MG/DL (8.5-10.1); CREATININE SERUM 0.79 MG/DL (0.60-1.30); POTASSIUM 3.9 MMOL/L (3.6-5.0)
--- NOTE | 2022-08-17 08:28 | Tele-ICU Consult ---
History of Present Illness History of Present Illness Date Seen by Provider: Aug 17, 2022 Time Seen by Provider: 08:20 History of Present Illness Available chart/ vitals / labs / Images reviewed H&P is from ER notes, RN and progress notes Patient's information available about PMH, allergy reviewed in EMR. ROS as per chart and RN report Video assessment done using teleICU camera, rest of exam as per RN Discussed with RN. 22 yo F with frequent admissions for DKA, enters with similar presentation, d oing better, looks food will stay down Pt is 13 weeks Pt has insulin pump Came to ED with glucose 536, HCO3 9, beta OH 5.39, lastest HCO3 is 14, last [id number], on insulin pump, at home HCG is 28k Last POC glu 250 Allergies and Home Medications Allergies Coded Allergies: bismuth subsalicylate (Verified Allergy, Unknown, 10/27/21) Home Medications Acetaminophen 500 Mg Tablet, 1,000 MG PO Q8H PRN for PAIN-MILD (1-4), (Reported) Insulin Lispro 100 Unit/Ml Vial, UNITS SC UD, (Reported) USES VIA PUMP Past Medical/Social/Family Hx Patient Social History Tobacco Use?: No Use of E-Cig and/or Vaping dev: Yes E-Cig or Vaping type used: Nicotine E-Cig and/or Vaping Freq: Current Everyday User Substance use?: No Alcohol Use?: No Pt stated abuse/neglect: No Immunizations Up To Date Influenza Vaccine Up-to-Date: Yes; Up-to-Date First/Initial COVID19 Vaccinat: APR 2021 Second COVID19 Vaccination [place]: MAY 2021 Tetanus Booster (TDap): Unknown Hepatitis A: Yes Hepatitis B: Yes TB Skin Test: None Current Status status: Yes Advance Directives: No Communicates: Verbally Primary Language: Prydeinig Preferred Spoken Language: Prydeinig Is interpretation needed?: No Past Medical History Type I DM Depression Family Medical History Family Hx: MULTITUDE OF VISITS, MANY FOR DKA/DIABETES RELATED ISSUES. ALSO MULTIPLE VISITS FOR CHRONIC NAUSEA/VOMITING/ABDOMINAL PAIN DUE TO CANNABIS HYPEREMESIS Review of Systems Constitutional: see HPI EENTM: see HPI Respiratory: see HPI Cardiovascular: see HPI Gastrointestinal: see HPI Genitourinary: see HPI Musculoskeletal: see HPI Skin: see HPI Psychiatric/Neurological: See HPI Focused Exam Height, Weight, BMI Height: 5'9.00" Weight: 255lbs. 0oz. 115.752039ka; 32.60 BMI Method:Stated Exam Exam Patient acknowledged, consented, and participated in this virtual visit which was conducted using real time audio/video Vital Signs Date Time Temp Pulse Resp B/P (MAP) Pulse Ox O2 Delivery O2 Flow Rate FiO2 08/17/22 06:00 98 12 117/72 (87) 97 Room Air 08/17/22 05:00 96 24 117/64 (81) 96 Room Air 08/17/22 04:00 100 Room Air 08/17/22 04:00 105 22 105/50 (68) 96 Room Air 08/17/22 03:00 115 12 116/63 (80) 98 Room Air 08/17/22 02:00 113 30 140/79 (99) 97 Room Air 08/17/22 01:58 103 08/17/22 01:00 105 29 118/68 (85) 97 Room Air 08/17/22 00:15 101 24 134/86 (102) 97 Room Air 08/17/22 00:00 100 21 153/101 (118) 95 Room Air 08/16/22 23:59 100 Room Air 08/16/22 23:45 36.7 94 21 134/86 (102) 100 Room Air 08/16/22 23:19 35.7 120 18 131/83 100 Room Air 08/16/22 21:42 35.7 103 18 131/70 (90) 100 Room Air I & O 08/17/22 07:00 Intake Total 1600 ml Output Total 1200 ml Balance 400 ml Height & Weight Height: 5'9.00" Weight: 255lbs. 0oz. 115.693631dy; 32.60 BMI Method:Stated General Appearance: No Apparent Distress, WD/WN, Other (DOES NOT APPEAR ILL OR TO BE IN ANY DISCOMFORT OR DISTRESS; AT THE TIME OF MY EXAM. PT STATES SHE IS NOT NAUSEATED AND NOT HAVING ANY ABDOMINAL PAIN OR CRAMPING. ) HEENT: PERRL/EOMI, Moist Mucous Membranes, Other (ORAL MUCOSA MOIST) Neck: Normal Inspection Respiratory: Lungs Clear, Normal Breath Sounds, No Accessory Muscle Use, No Respiratory Distress Cardiovascular: Regular Rate, Rhythm, No Murmur Capillary Refill: Less Than 3 Seconds Gastrointestinal: normal bowel sounds, non tender, soft Extremity: Normal Capillary Refill, Normal Inspection, Normal Range of Motion, Non Tender, No Calf Tenderness, No Pedal Edema Neurologic/Psychiatric: Alert, Oriented x3, No Motor/Sensory Deficits, Normal Mood/Affect, face painter II-XII Norm as Tested Skin: Normal Color, Warm/Dry Results Lab Laboratory Tests 08/16/22 22:07 08/17/22 00:55 08/17/22 03:05 Assessment/Plan Assessment/Plan DKA, will follow DKA protocol, pt does not want to go back to insulin pump, pt thinks it is working ok, Pt has MD who sees [aj: Critical Care: Critically Ill Patient Time spent with patient (mins): 25 VENANCIO MAYEN MD Aug 17, 2022 08:28
--- NOTE | 2022-08-17 08:37 | History & Physical ---
HPI History of Present Illness: 22 yo female came to ER due to high blood sugar. Runnin as high as 567, lowest in 200s yesterday. Reports prior to that her blood sugars had been okay. She denies running out of insulin. She is on 1.7 units/hour via pump and 1 unit/9 carbs with meals normally. She was very tired yesterday and vomiting. She is feeling hungry this morning and requesting to eat solid food. Reports last time she had DKA was a couple of months ago. She is about 14 weeks . She was having bad morning sickness, that was getting a little better in the last week, yesterday didn't feel sick right away, but didn't feel right and then later in the day her glucose kept going up and she was drinking water trying to stay hydrated and trying not to vomit but she could only get glucose down to 516 even with extra insulin boluses. She is seeing Dr. Tovar at [facility] in [place] for her Ob care. First . Denies vaginal bleeding. She uses an insulin pump, changed tubing yesterday morning and denies any pump malfunctions. She says she is supposed to use CGM, is supposed to see Endo tomorrow to get a sample because she needs prior auth for her Dexcom that she was using before. She is using glucometer now and reports having plenty of strips. Source: patient Date seen by provider: Aug 17, 2022 Time Seen by Provider: 08:34 Attending Physician Carlos Lyn DO PCP Admitting Physician: Isabella Paniagua MD Attending Physician: Isabella Paniagua MD Consult Date of Admission Aug 16, 2022 at 23:00 Home Medications Home Medications Reviewed patient Home Medication Reconciliation performed by pharmacy medication reconciliations shop technician and/or nursing. Patients Allergies have been reviewed. 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: [employer] Past Medical History PMHx: Type I DM Depression SurgHx: Denies Family Medical History Significant Family History: No Pertinent Family Hx Review of Systems ([facility]) Constitutional: No fever EENTM: No nose congestion Respiratory: No cough, No short of breath Cardiovascular: No chest pain Gastrointestinal: abdominal pain (cramping yesterday), constipation; No diarrhea; nausea, vomiting Genitourinary: No dysuria : Yes Expected Date of Delivery: Feb 17, 2023 Skin: No rash Reviewed Test Results Reviewed Test Results Lab Laboratory Tests Test 08/16/22 21:49 08/16/22 22:07 08/16/22 22:40 08/16/22 23:46 Range/Units Glucometer 490 *H 334 H 70-110 MG/DL White Blood Count 12.1 H 4.3-11.0 10^3/uL Red Blood Count 5.14 H 3.80-5.11 10^6/uL Hemoglobin 13.3 11.5-16.0 g/dL Hematocrit 40 35-52 % Mean Corpuscular Volume 77 L 80-99 fL Mean Corpuscular Hemoglobin 26 25-34 pg Mean Corpuscular Hemoglobin Concent 34 32-36 g/dL Red Cell Distribution Width 12.6 10.0-14.5 % Platelet Count 306 130-400 10^3/uL Mean Platelet Volume 10.4 9.0-12.2 fL Immature Granulocyte % (Auto) 1 % Neutrophils (%) (Auto) 86 H 42-75 % Lymphocytes (%) (Auto) 10 L 12-44 % Monocytes (%) (Auto) 3 0-12 % Eosinophils (%) (Auto) 0 0-10 % Basophils (%) (Auto) 0 0-10 % Neutrophils # (Auto) 10.4 H 1.8-7.8 10^3/uL Lymphocytes # (Auto) 1.2 1.0-4.0 10^3/uL Monocytes # (Auto) 0.3 0.0-1.0 10^3/uL Eosinophils # (Auto) 0.0 0.0-0.3 10^3/uL Basophils # (Auto) 0.0 0.0-0.1 10^3/uL Immature Granulocyte # (Auto) 0.1 0.0-0.1 10^3/uL Sodium Level 130 L 135-145 MMOL/L Potassium Level 4.5 3.6-5.0 MMOL/L Chloride Level 100 98-107 MMOL/L Carbon Dioxide Level 9 *L 21-32 MMOL/L Anion Gap 21 H 5-14 MMOL/L Blood Urea Nitrogen 14 7-18 MG/DL Creatinine 1.14 0.60-1.30 MG/DL Estimat Glomerular Filtration Rate 71 BUN/Creatinine Ratio 12 Glucose Level 536 *H 70-105 MG/DL Calcium Level 9.2 8.5-10.1 MG/DL Corrected Calcium 9.2 8.5-10.1 MG/DL Total Bilirubin 0.6 0.1-1.0 MG/DL Aspartate Amino Transf (AST/SGOT) 14 5-34 U/L Alanine Aminotransferase (ALT/SGPT) 12 0-55 U/L Alkaline Phosphatase 90 40-136 U/L Total Protein 7.2 6.4-8.2 GM/DL Albumin 4.0 3.2-4.5 GM/DL Amylase Level 53 25-125 U/L Lipase 12 8-78 U/L Beta-Hydroxybutyrate (Chem panel) 5.39 H 0.00-0.27 MMOL/L Human Chorionic Gonadotropin, Quant 36956 H <5 MIU/ML Serum Alcohol < 10 <10 MG/DL Urine Color YELLOW Urine Clarity CLEAR Urine pH 5.5 5-9 Urine Specific [place] 1.025 H 1.016-1.022 Urine Protein NEGATIVE NEGATIVE Urine Glucose (UA) 3+ H NEGATIVE Urine Ketones 3+ H NEGATIVE Urine Nitrite NEGATIVE NEGATIVE Urine Bilirubin NEGATIVE NEGATIVE Urine Urobilinogen 0.2 < = 1.0 MG/DL Urine Leukocyte Esterase NEGATIVE NEGATIVE Urine RBC (Auto) NEGATIVE NEGATIVE Urine RBC NONE /HPF Urine WBC NONE /HPF Urine Squamous Epithelial Cells 2-5 /HPF Urine Crystals NONE /LPF Urine Bacteria TRACE /HPF Urine Casts NONE /LPF Urine Mucus NEGATIVE /LPF Urine Culture Indicated NO Urine Opiates Screen NEGATIVE NEGATIVE Urine Oxycodone Screen NEGATIVE NEGATIVE Urine Methadone Screen NEGATIVE NEGATIVE Urine Propoxyphene Screen NEGATIVE NEGATIVE Urine Barbiturates Screen NEGATIVE NEGATIVE Ur Tricyclic Antidepressants Screen NEGATIVE NEGATIVE Urine Phencyclidine Screen NEGATIVE NEGATIVE Urine Amphetamines Screen NEGATIVE NEGATIVE Urine Methamphetamines Screen NEGATIVE NEGATIVE Urine Benzodiazepines Screen NEGATIVE NEGATIVE Urine Cocaine Screen NEGATIVE NEGATIVE Urine Cannabinoids Screen NEGATIVE NEGATIVE Test 08/17/22 00:53 08/17/22 00:55 08/17/22 01:57 08/17/22 02:52 Range/Units Glucometer 252 H 262 H 234 H 70-110 MG/DL Sodium Level 133 L 135-145 MMOL/L Potassium Level 4.1 3.6-5.0 MMOL/L Chloride Level 109 H 98-107 MMOL/L Carbon Dioxide Level 9 *L 21-32 MMOL/L Anion Gap 15 H 5-14 MMOL/L Blood Urea Nitrogen 15 7-18 MG/DL Creatinine 0.96 0.60-1.30 MG/DL Estimat Glomerular Filtration Rate 87 BUN/Creatinine Ratio 16 Glucose Level 276 H 70-105 MG/DL Calcium Level 8.8 8.5-10.1 MG/DL Test 08/17/22 03:05 08/17/22 03:58 08/17/22 05:00 08/17/22 05:55 Range/Units White Blood Count 12.5 H 4.3-11.0 10^3/uL Red Blood Count 4.72 3.80-5.11 10^6/uL Hemoglobin 12.1 11.5-16.0 g/dL Hematocrit 36 35-52 % Mean Corpuscular Volume 76 L 80-99 fL Mean Corpuscular Hemoglobin 26 25-34 pg Mean Corpuscular Hemoglobin Concent 34 32-36 g/dL Red Cell Distribution Width 12.6 10.0-14.5 % Platelet Count 120 L 130-400 10^3/uL Mean Platelet Volume 11.1 9.0-12.2 fL Immature Granulocyte % (Auto) 0 % Neutrophils (%) (Auto) 89 H 42-75 % Lymphocytes (%) (Auto) 8 L 12-44 % Monocytes (%) (Auto) 2 0-12 % Eosinophils (%) (Auto) 0 0-10 % Basophils (%) (Auto) 0 0-10 % Neutrophils # (Auto) 11.1 H 1.8-7.8 10^3/uL Lymphocytes # (Auto) 1.0 1.0-4.0 10^3/uL Monocytes # (Auto) 0.3 0.0-1.0 10^3/uL Eosinophils # (Auto) 0.0 0.0-0.3 10^3/uL Basophils # (Auto) 0.0 0.0-0.1 10^3/uL Immature Granulocyte # (Auto) 0.0 0.0-0.1 10^3/uL Neutrophils % (Manual) 88 % Lymphocytes % (Manual) 6 % Monocytes % (Manual) 1 % Eosinophils % (Manual) 0 % Basophils % (Manual) 0 % Band Neutrophils 3 % Reactive Lymphocytes 2 % Clumped Platelets OCCASIONAL Sodium Level 130 L 135-145 MMOL/L Potassium Level 4.4 3.6-5.0 MMOL/L Chloride Level 108 H 98-107 MMOL/L Carbon Dioxide Level 9 *L 21-32 MMOL/L Anion Gap 13 5-14 MMOL/L Blood Urea Nitrogen 14 7-18 MG/DL Creatinine 0.91 0.60-1.30 MG/DL Estimat Glomerular Filtration Rate 93 BUN/Creatinine Ratio 15 Glucose Level 261 H 70-105 MG/DL Calcium Level 8.4 L 8.5-10.1 MG/DL Phosphorus Level 2.6 2.3-4.7 MG/DL Magnesium Level 1.7 1.6-2.4 MG/DL Beta-Hydroxybutyrate (Chem panel) 3.52 H 0.00-0.27 MMOL/L Glucometer 279 H 277 H 264 H 70-110 MG/DL Test 08/17/22 06:55 08/17/22 07:40 08/17/22 08:05 08/17/22 09:09 Range/Units Glucometer 230 H 166 H 163 H 70-110 MG/DL Sodium Level 133 L 135-145 MMOL/L Potassium Level 3.9 3.6-5.0 MMOL/L Chloride Level 109 H 98-107 MMOL/L Carbon Dioxide Level 14 L 21-32 MMOL/L Anion Gap 10 5-14 MMOL/L Blood Urea Nitrogen 11 7-18 MG/DL Creatinine 0.79 0.60-1.30 MG/DL Estimat Glomerular Filtration Rate 110 BUN/Creatinine Ratio 14 Glucose Level 196 H 70-105 MG/DL Calcium Level 8.4 L 8.5-10.1 MG/DL Test 08/17/22 10:03 08/17/22 11:05 Range/Units Glucometer 171 H 250 H 70-110 MG/DL Physical Exam-(CHC) Physical Exam Vital Signs VS - Last 72 Hours, by Label 08/16/22 08/16/22 08/16/22 12/7/22 21:42 23:19 23:45 23:59 Temp 35.7 35.7 36.7 Pulse 103 120 94 Resp 18 18 21 B/P (MAP) 131/70 (90) 131/83 134/86 (102) Pulse Ox 100 100 100 100 O2 Delivery Room Air Room Air Room Air Room Air 08/17/22 08/17/22 08/17/22 08/17/22 00:00 00:15 01:00 01:58 Pulse 100 101 105 103 Resp 21 24 29 B/P (MAP) 153/101 (118) 134/86 (102) 118/68 (85) Pulse Ox 95 97 97 O2 Delivery Room Air Room Air Room Air 08/17/22 08/17/22 08/17/22 08/17/22 02:00 03:00 04:00 04:00 Pulse 113 115 105 Resp 08 09 22 B/P (MAP) 140/79 (99) 116/63 (80) 105/50 (68) Pulse Ox 97 98 96 100 O2 Delivery Room Air Room Air Room Air Room Air 08/17/22 08/17/22 08/17/22 08/17/22 05:00 06:00 07:00 07:05 Pulse 96 98 97 90 Resp 24 12 18 B/P (MAP) 117/64 (81) 117/72 (87) 127/74 (91) Pulse Ox 96 97 99 O2 Delivery Room Air Room Air Room Air 08/17/22 08/17/22 08/17/22 08/17/22 08:00 08:00 08:00 09:00 Temp 37.3 Pulse 89 92 Resp 5 15 B/P (MAP) 112/71 (85) 114/66 (82) Pulse Ox 100 99 100 O2 Delivery Room Air Room Air Room Air 08/17/22 12:00 Temp 36.5 Capillary Refill : Less Than 3 Seconds General Appearance: WD/WN, no apparent distress Respiratory: lungs clear, normal breath sounds Cardiovascular: regular rate, rhythm Gastrointestinal: normal bowel sounds, non tender, soft Extremities: no pedal edema Neurologic/Psychiatric: alert, normal mood/affect Skin: normal color, warm/dry Assessment/Plan Assessment/Plan Admission Status: Inpatient Order (span 2 midnights) Reason for Inpatient Admission: DKA requiring insulin drip (1) Type 1 diabetes mellitus Status: Chronic Assessment & Plan: On pump at home, states she would prefer to use sub Q injections inpatient when ready to transition off drip and will talk to her Endo about whether pump dosing needs adjusted. Qualifiers: Qualified Codes: E10.65 - Type 1 diabetes mellitus with hyperglycemia (2) DKA (diabetic ketoacidosis) Status: Acute Assessment & Plan: Declined ABGs, but had high AG, low bicarb and high serum ketones on admit, all are improving, AG closed, bicarb increased significantly and ketones decreased on insulin drip overnight. When bicarb normal will try to transition to basal/bolus insulin. Unclear precipitating factor, no UTI, no other sign of infection and her related nausea/vomiting had improved prior to this. Qualifiers: Qualified Codes: E10.10 - Type 1 diabetes mellitus with ketoacidosis without coma (3) 13 weeks gestation of Status: Acute Assessment & Plan: Daily heart tones. vitamin. ISABELLA PANIAGUA MD Aug 17, 2022 08:37
[2022-08-17] MEDS ORDERED: INSU100V39 SC (12:23)
[2022-08-17 12:56] LABS: CALCIUM 8.3 MG/DL (8.5-10.1); CREATININE SERUM 0.86 MG/DL (0.60-1.30)
[2022-08-17 16:39] LABS: CALCIUM 8.6 MG/DL (8.5-10.1); CREATININE SERUM 0.79 MG/DL (0.60-1.30); POTASSIUM 3.7 MMOL/L (3.6-5.0)
[2022-08-17 20:29] LABS: CALCIUM 8.1 MG/DL (8.5-10.1); CREATININE SERUM 0.79 MG/DL (0.60-1.30); POTASSIUM 3.7 MMOL/L (3.6-5.0)
[2022-08-18] MEDS: POTASSIUM CL 10MEQ/50ML IVPB 50 ML IV SCH ×5 (01:41→08:03)
[2022-08-18 02:05] LABS: CALCIUM 8.1 MG/DL (8.5-10.1); CREATININE SERUM 0.64 MG/DL (0.60-1.30); POTASSIUM 4.2 MMOL/L (3.6-5.0)
[2022-08-18] MEDS: D5 1/2 NS 1000 ML IV SOLUTION 1,000 ML IV SCH ×2 (02:39→08:03)
[2022-08-18 04:42] LABS: CALCIUM 7.9 MG/DL (8.5-10.1); CREATININE SERUM 0.63 MG/DL (0.60-1.30)
[2022-08-18 04:44] LABS: BASOPHILS % (AUTO) 0 % (0-10); EOSINOPHILS # (AUTO) 0.1 10^3/uL (0.0-0.3); EOSINOPHILS % (AUTO) 1 % (0-10); HEMATOCRIT 32 % (35-52); HEMOGLOBIN 10.8 g/dL (11.5-16.0); LYMPHOCYTES # (AUTO) 3.4 10^3/uL (1.0-4.0); LYMPHOCYTES % (AUTO) 38 % (12-44); MEAN CORPUSCULAR HEMOGLOBIN 26 pg (25-34); MEAN CORPUSCULAR HGB CONC 34 g/dL (32-36); MEAN CORPUSCULAR VOLUME 76 fL (80-99); MEAN PLATELET VOLUME 11.5 fL (9.0-12.2); MONOCYTES # (AUTO) 0.6 10^3/uL (0.0-1.0); MONOCYTES % (AUTO) 7 % (0-12); NEUTROPHILS # (AUTO) 4.7 10^3/uL (1.8-7.8); NEUTROPHILS % (AUTO) 53 % (42-75); PLATELET COUNT 185 10^3/uL (130-400); WHITE BLOOD COUNT 8.9 10^3/uL (4.3-11.0)
[2022-08-18 05:23] LABS: MAGNESIUM 1.6 MG/DL (1.6-2.4); PHOSPHORUS 3.2 MG/DL (2.3-4.7)
[2022-08-18] MEDS: KCL 20 MEQ TAB (K-DUR) PO SCH (06:04)
[2022-08-18] MEDS: MAGNESIUM 1 GM/100 ML IVPB 100 ML IV SCH ×3 (06:05→12:23)
[2022-08-18] MEDS: PRENATAL VITAMIN 1 EA TAB PO SCH (06:49)
[2022-08-18 08:04] LABS: CALCIUM 7.9 MG/DL (8.5-10.1); CREATININE SERUM 0.65 MG/DL (0.60-1.30); POTASSIUM 4.5 MMOL/L (3.6-5.0)
[2022-08-18] MEDS: 1/2 NS IV SOLUTION 1,000 ML IV SCH ×3 (08:52→16:15)
[2022-08-18] MEDS: inSUlin ASPART (NovoLOG) 1 UNIT/0.01 ML (CHARGE PER UNIT) SC SCH ×3 (11:33→17:58)
[2022-08-18] MEDS ORDERED: inSUlin ASPART (NovoLOG) 1 UNIT/0.01 ML (CHARGE PER UNIT) SC SCH ×3 (12:00→17:00)
--- NOTE | 2022-08-18 14:57 | Progress Note ---
Subjective Subjective/Events-last exam Pt seen at 1015. States feeling fine, denies nausea, vomiting, is tolerating diet well. Reports she has never had good glucose control, they have previously felt getting under 200 is good for her. She does know Endo and Ob want her glucose 60-95 fasting and under 120 two hours postprandial, but admits she has n ever been able to meet this, prior to or now. Objective Exam Last Set of Vital Signs Vital Signs Date Time Temp Pulse Resp B/P (MAP) Pulse Ox O2 Delivery O2 Flow Rate FiO2 08/18/22 14:00 95 18 99/59 (72) 99 Room Air 08/18/22 11:50 36.5 Capillary Refill : Less Than 3 Seconds I&O Intake and Output 08/18/22 00:00 Intake Total 6670 ml Output Total 4750 ml Balance 1920 ml Intake Oral 2970 ml IV Total 3700 ml Output Urine Total 4750 ml Daily Weight Change No General: Alert, No Acute Distress Lungs: Clear to Auscultation, Normal Air Movement Heart: Regular Rate, No Murmurs Neuro: Normal Speech Psych/Mental Status: Mood NL Results/Procedures Lab Laboratory Tests 08/17/22 14:56: Glucometer 197H 08/17/22 15:53: Glucometer 180H 08/17/22 16:12: Sodium Level 134L, Potassium Level 3.7, Chloride Level 109H, Carbon Dioxide Level 17L, Anion Gap 8, Blood Urea Nitrogen 9, Creatinine 0.79, Estimat Glomerular Filtration Rate 110, BUN/Creatinine Ratio 11, Glucose Level 165H, Calcium Level 8.6 08/17/22 17:06: Glucometer 127H 08/17/22 17:59: Glucometer 176H 08/17/22 19:00: Glucometer 250H 08/17/22 19:12: Glucometer 274H 08/17/22 20:07: Glucometer 252H, Sodium Level 134L, Potassium Level 3.7, Chloride Level 110H, Carbon Dioxide Level 16L, Anion Gap 8, Blood Urea Nitrogen 9, Creatinine 0.79, Estimat Glomerular Filtration Rate 110, BUN/Creatinine Ratio 11, Glucose Level 263H, Calcium Level 8.1L 08/17/22 21:08: Glucometer 225H 08/17/22 22:08: Glucometer 187H 08/17/22 23:28: Glucometer 114H 08/18/22 00:14: Glucometer 128H 08/18/22 01:10: Glucometer 149H 08/18/22 01:40: Sodium Level 135, Potassium Level 4.2, Chloride Level 113H, Carbon Dioxide Level 13L, Anion Gap 9, Blood Urea Nitrogen 9, Creatinine 0.64, Estimat Glomerular Filtration Rate 130, BUN/Creatinine Ratio 14, Glucose Level 126H, Calcium Level 8.1L 08/18/22 02:05: Glucometer 106 08/18/22 02:44: Glucometer 121H 08/18/22 02:59: Glucometer 161H 08/18/22 03:58: Glucometer 158H 08/18/22 04:10: White Blood Count 8.9, Red Blood Count 4.24, Hemoglobin 10.8L, Hematocrit 32L, Mean Corpuscular Volume 76L, Mean Corpuscular Hemoglobin 26, Mean Corpuscular Hemoglobin Concent 34, Red Cell Distribution Width 13.1, Platelet Count 185, Mean Platelet Volume 11.5, Immature Granulocyte % (Auto) 1, Neutrophils (%) (Auto) 53, Lymphocytes (%) (Auto) 38, Monocytes (%) (Auto) 7, Eosinophils (%) (Auto) 1, Basophils (%) (Auto) 0, Neutrophils # (Auto) 4.7, Lymphocytes # (Auto) 3.4, Monocytes # (Auto) 0.6, Eosinophils # (Auto) 0.1, Basophils # (Auto) 0.0, Immature Granulocyte # (Auto) 0.1, Percent Immature Platelet Fraction 5.2, Sodium Level 135, Potassium Level 4.0, Chloride Level 113H, Carbon Dioxide Level 14L, Anion Gap 8, Blood Urea Nitrogen 8, Creatinine 0.63, Estimat Glomerular Filtration Rate 130, BUN/Creatinine Ratio 13, Glucose Level 153H, Calcium Level 7.9L, Phosphorus Level 3.2, Magnesium Level 1.6, Beta-Hydroxybutyrate (Chem panel) 0.07 08/18/22 05:05: Glucometer 129H 08/18/22 06:07: Glucometer 148H 08/18/22 06:55: Glucometer 172H 08/18/22 07:45: Sodium Level 133L, Potassium Level 4.5, Chloride Level 113H, Carbon Dioxide Level 13L, Anion Gap 7, Blood Urea Nitrogen 6L, Creatinine 0.65, Estimat Glomerular Filtration Rate 129, BUN/Creatinine Ratio 9, Glucose Level 186H, Calcium Level 7.9L 08/18/22 07:54: Glucometer 204H 08/18/22 08:53: Glucometer 218H 08/18/22 10:02: Glucometer 271H 08/18/22 10:55: Glucometer 387H Assessment/Plan Assessment/Plan (1) Type 1 diabetes mellitus Status: Chronic Assessment & Plan: On pump at home, states she would prefer to use sub Q inject ions inpatient when ready to transition off drip and will talk to her Endo about whether pump dosing needs adjusted. Qualifiers: Qualified Codes: E10.65 - Type 1 diabetes mellitus with hyperglycemia (2) DKA (diabetic ketoacidosis) Status: Resolved Assessment & Plan: Declined ABGs, but had high AG, low bicarb and high serum ketones on admit, all are improving, AG closed, bicarb increased significantly and ketones decreased on insulin drip overnight. When bicarb normal will try to transition to basal/bolus insulin. Unclear precipitating factor, no UTI, no other sign of infection and her related nausea/vomiting had improved prior to this. 08/18- gap closed, beta hydroxybutyrate normal although bicarb still low. Stop drip. Previous home continuous pump dose provided about 40 units per day basal rate, in last 24 hours she has had double that or more. Will start long-acting at 60 units per day and schedule short acting 7 units with meals (1 to 9 grams of carbs with 60 gram carb diet) along with sliding scale. Qualifiers: Qualified Codes: E10.10 - Type 1 diabetes mellitus with ketoacidosis without coma (3) 13 weeks gestation of Status: Acute Assessment & Plan: Daily heart tones. vitamin. PILI SWANSON MD Aug 18, 2022 14:57
[2022-08-18] MEDS ORDERED: PNV1TABL67 PO (20:02)
--- NOTE | 2022-08-18 20:02 | Discharge Summary ---
Discharge Summary Hospital Course Was the Problem List Reviewed?: Yes Problems/Dx: (1) DKA (diabetic ketoacidosis) Status: Resolved Qualifiers: Qualified Codes: E10.10 - Type 1 diabetes mellitus with ketoacidosis without coma (2) 13 weeks gestation of Status: Acute Hospital Course Date of Admission: Aug 16, 2022 at 23:00 Admission Diagnosis : Family Physician/Provider: Carlos Lyn DO Date of Discharge: 08/18/22 Discharge Diagnosis: [ ] Hospital Course: short course after admitted for DKA with 13 weeks gestation of . Insulin drip initiated per protocol and patient ultimately transitioned to sq insulin and although she is a brittle diabetic she was deemed stable to DC Labs and Pending Lab Test: Laboratory Tests 08/17/22 20:07: Sodium Level 134L, Potassium Level 3.7, Chloride Level 110H, Carbon Dioxide Level 16L, Anion Gap 8, Blood Urea Nitrogen 9, Creatinine 0.79, Estimat Glomerular Filtration Rate 110, BUN/Creatinine Ratio 11, Glucose Level 263H, Glucometer 252H, Calcium Level 8.1L 08/17/22 21:08: Glucometer 225H 08/17/22 22:08: Glucometer 187H 08/17/22 23:28: Glucometer 114H 08/18/22 00:14: Glucometer 128H 08/18/22 01:10: Glucometer 149H 08/18/22 01:40: Sodium Level 135, Potassium Level 4.2, Chloride Level 113H, Carbon Dioxide Level 13L, Anion Gap 9, Blood Urea Nitrogen 9, Creatinine 0.64, Estimat Glomerular Filtration Rate 130, BUN/Creatinine Ratio 14, Glucose Level 126H, Calcium Level 8.1L 08/18/22 02:05: Glucometer 106 08/18/22 02:44: Glucometer 121H 08/18/22 02:59: Glucometer 161H 08/18/22 03:58: Glucometer 158H 08/18/22 04:10: White Blood Count 8.9, Red Blood Count 4.24, Hemoglobin 10.8L, Hematocrit 32L, Mean Corpuscular Volume 76L, Mean Corpuscular Hemoglobin 26, Mean Corpuscular Hemoglobin Concent 34, Red Cell Distribution Width 13.1, Platelet Count 185, Mean Platelet Volume 11.5, Immature Granulocyte % (Auto) 1, Neutrophils (%) (Auto) 53, Lymphocytes (%) (Auto) 38, Monocytes (%) (Auto) 7, Eosinophils (%) (Auto) 1, Basophils (%) (Auto) 0, Neutrophils # (Auto) 4.7, Lymphocytes # (Auto) 3.4, Monocytes # (Auto) 0.6, Eosinophils # (Auto) 0.1, Basophils # (Auto) 0.0, Immature Granulocyte # (Auto) 0.1, Percent Immature Platelet Fraction 5.2, Sodium Level 135, Potassium Level 4.0, Chloride Level 113H, Carbon Dioxide Level 14L, Anion Gap 8, Blood Urea Nitrogen 8, Creatinine 0.63, Estimat Glomerular Filtration Rate 130, BUN/Creatinine Ratio 13, Glucose Level 153H, Calcium Level 7.9L, Phosphorus Level 3.2, Magnesium Level 1.6, Beta-Hydroxybutyrate (Chem panel) 0.07 08/18/22 05:05: Glucometer 129H 08/18/22 06:07: Glucometer 148H 08/18/22 06:55: Glucometer 172H 08/18/22 07:45: Sodium Level 133L, Potassium Level 4.5, Chloride Level 113H, Carbon Dioxide Level 13L, Anion Gap 7, Blood Urea Nitrogen 6L, Creatinine 0.65, Estimat Glomerular Filtration Rate 129, BUN/Creatinine Ratio 9, Glucose Level 186H, Calcium Level 7.9L 08/18/22 07:54: Glucometer 204H 08/18/22 08:53: Glucometer 218H 08/18/22 10:02: Glucometer 271H 08/18/22 10:55: Glucometer 387H 08/18/22 12:10: Glucometer 333H 08/18/22 15:18: Glucometer 274H 08/18/22 15:30: Glucometer 268H 08/18/22 17:40: Glucometer 156H Home Meds Active Reported Insulin Lispro 100 Unit/Ml Vial Units SC UD USES VIA PUMP Tylenol Extra Strength (Acetaminophen) 500 Mg Tablet 1,000 Mg PO Q8H PRN Assessment/Pt Instructions pcp 1week Discharge Planning: <30 minutes discharge planning Discharge Instructions Discharge Diet: ADA Diet Discharge Physical Examination Vital Signs Vital Signs Date Time Temp Pulse Resp B/P (MAP) Pulse Ox O2 Delivery O2 Flow Rate FiO2 08/18/22 19:41 36.6 08/18/22 19:00 91 17 127/94 (105) 97 Room Air General Appearance: No Apparent Distress, WD/WN Allergies: Coded Allergies: bismuth subsalicylate (Verified Allergy, Unknown, 10/27/21) Discharge Summary Date of Admission Aug 16, 2022 at 23:00 Date of Discharge Discharge Date: Aug 18, 2022 JOSIE SMYTH DO Aug 18, 2022 20:02
[2022-08-18 20:20] VITALS: BP 127/94
== END 2022-08-18 21:25 | disposition home or self-care (01) | DRG 831 ==
LOC: EDUNIT# 21:33 → ER 21:34 → ICU 23:00
PROVIDERS: ADMIT Family Medicine; ATTEND Internal Medicine
DX: O24.011 Pre-existing type 1 diabetes mellitus, in pregnancy, first trimester (principal); E10.10 Type 1 diabetes mellitus with ketoacidosis without coma; Z79.4 Long term (current) use of insulin; Z3A.13 13 weeks gestation of pregnancy; Z87.891 Personal history of nicotine dependence; O99.341 Other mental disorders complicating pregnancy, first trimester; F32.A Depression, unspecified; F41.9 Anxiety disorder, unspecified
CPT/HCPCS: 36415; 80048; 80053; 80306; 80320; 81000; 82010; 82150; 82947; 83036; 83690; 83735; 84100; 84702; 85007; 85025; 85027; 93041

== ENCOUNTER 2022-08-19 21:44 | Emergency (ER) | payer BC, MEDICAID ==
[~2022-08-19] VITALS: Ht 175.3 cm; Wt 100.0 kg
[~2022-08-19 21:44] MED LIST changes: +INSU100V39 SC; +PNV1TABL67 PO
--- NOTE | 2022-08-19 22:06 | ED GU-Female ---
General Chief Complaint: OB < 20 WEEKS Stated Complaint: VAG BLEEDING/PASSING CLOTS 14 WKS PREG Nursing Triage Note: PT AMB TO RM 5 W C/O VAGINAL BLEEDING AND ABD CRAMPING THAT BEGAN TODAY. PT REPORTS SHE IS APPROX 14 WKS , WOKE UP FROM A NAP TO VAGINAL BLEEDING. PT BROUGHT CLOT TO ED IN ZIPLOC BAG. PT A&OX4. Source: patient Exam Limitations: no limitations History of Present Illness Date Seen by Provider: Aug 19, 2022 Time Seen by Provider: 21:55 Initial Comments Patient is a 22-year-old female who presents to the emergency department for evaluation of acute onset of vaginal bleeding and lower abdominal cramping that began approximately 20 minutes prior to arrival when she woke up from a nap. Patient states she passed a large clot. Patient brought said clot in a Ziploc bag with her to the emergency department. She states she has had persistent vaginal bleeding since that time. She was recently discharged from this hospital's ICU yesterday after being admitted with DKA. Patient denies any history outside of her diabetes. She states her blood sugars have been "up and down" since being discharged from the hospital. Denies any symptoms of DKA at this time. Her BEHAVIORAL SCIENTIST is in [place]. Patient states she has had confirmed intrauterine via ultrasound. She states they were able to obtain normal heart tones during her ICU stay. Allergies and Home Medications Allergies Coded Allergies: bismuth subsalicylate (Verified Allergy, Unknown, 10/27/21) Patient Home Medication List Home Medication List Reviewed: Yes Acetaminophen (Tylenol Extra Strength) 500 Mg Tablet, 1,000 MG PO Q8H PRN for PAIN-MILD (1-4), (Reported) Entered as Reported by: COLT BOURNE on 02/16/22 1100 Insulin Lispro (Insulin Lispro) 100 Unit/Ml Vial, UNITS SC UD, (Reported) Entered as Reported by: COLT BOURNE on 08/17/22 1223 Pnv with Ca,No.72/Iron/FA (Pnv Plus Multivit Tab) 27 Mg Iron-1 Mg Tablet, 1 EA PO DAILY@0700 Prescribed by: JOSIE SMYTH on 08/18/222001 Discontinued Medications Cefdinir (Cefdinir) 300 Mg Capsule, 300 MG PO BID Discontinued Reason: No Longer Taking Prescribed by: SANTI SOSA on 05/02/22331 Ibuprofen (Ibuprofen) 200 Mg Tablet, 400-600 MG PO Q8H PRN for PAIN-MILD (1-4), (Reported) Discontinued Reason: No Longer Taking Entered as Reported by: COLT BOURNE on 11/21/21 1006 Insulin Aspart (Insulin Aspart Flexpen) 100 Unit/1 Ml Insuln.pen, UNIT SQ AC, (Reported) Discontinued Reason: No Longer Taking Entered as Reported by: COLT BOURNE on 11/21/21 1006 Insulin Glargine,Hum.rec.anlog (Lantus Solostar) 100 Unit/Ml (3 Ml) Insuln.pen, 35 UNIT SQ HS, (Reported) Discontinued Reason: No Longer Taking Entered as Reported by: COLT BOURNE on 07/25/21 0936 Insulin Glargine,Hum.rec.anlog (Lantus Solostar) 100 Unit/Ml (3 Ml) Insuln.pen, 25 UNIT SQ DAILY, (Reported) Discontinued Reason: No Longer Taking Entered as Reported by: COLT BOURNE on 07/25/21 0936 Ondansetron (Ondansetron Odt) 4 Mg Tab.rapdis, 4 MG SL Q4H Discontinued Reason: No Longer Taking Prescribed by: SANTI SOSA on 05/02/22331 Review of Systems Review of Systems Constitutional: see HPI EENTM: see HPI Respiratory: see HPI Cardiovascular: see HPI Gastrointestinal: see HPI Genitourinary: see HPI Expected Date of Delivery: Feb 17, 2023 Musculoskeletal: see HPI Skin: see HPI Psychiatric/Neurological: See HPI Endocrine: See HPI Hematologic/Lymphatic: See HPI Past Upyfzvq-Hfdoow-Fdwsyy Hx Patient Social History Tobacco Use?: No Use of E-Cig and/or Vaping dev: Yes E-Cig or Vaping type used: Nicotine Use of E-Cig and/or Vaping Tom: Current Everyday User Substance use?: No Alcohol Use?: No Immunizations Up To Date Tetanus Booster (TDap): Less than 5yrs PED Vaccines UTD: Yes First/Initial COVID19 Vaccinat: APR 2021 Second COVID19 Vaccination [place]: MAY 2021 Seasonal Allergies Seasonal Allergies: No Past Medical History Surgery/Hospitalization HX: DM 1 Surgeries: No Respiratory: No Currently Using CPAP: No Currently Using BIPAP: No Cardiac: Yes (TACHYCARDIA) Palpitations Neurological: No Expected Date of Delivery: Feb 17, 2023 Last Menstrual Period: Apr 22, 2022 Reproductive Disorders: No Female Reproductive Disorders: Denies Sexually Transmitted Disease: No HIV/AIDS: No Genitourinary: Yes Bladder Infection Gastrointestinal: Yes (CANNABIS HYPEREMESIS; CHRONIC 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 DX AGE 12) Diabetes, Insulin dep HEENT: No Loss of Vision: Denies Hearing Impairment: Denies Cancer: No Psychosocial: Yes Anxiety, Depression Integumentary: No Blood Disorders: No Adverse Reaction/Blood Tranf: No Family Medical History No Pertinent Family Hx Physical Exam Vital Signs Vital Signs - First Documented 08/19/22 21:49 Temp 36.8 Pulse 126 Resp 24 B/P (MAP) 135/75 (95) Pulse Ox 99 O2 Delivery Room Air Capillary Refill : Less Than 3 Seconds Height, Weight, BMI Height: 5'9.00" Weight: 255lbs. 0oz. [id number]; 32.00 BMI Method:Stated General Appearance: WD/WN, no apparent distress HEENT: PERRL/EOMI, normal ENT inspection, TMs normal, pharynx normal Neck: non-tender, full range of motion, supple, normal inspection Cardiovascular: regular rate, rhythm, no edema, no gallop, no JVD, no murmur Respiratory: chest non-tender, lungs clear, normal breath sounds, no respiratory distress, no accessory muscle use Gastrointestinal: normal bowel sounds, non tender, soft Neurologic/Psychiatric: no motor/sensory deficits, alert, normal mood/affect, oriented x 3 Skin: normal color, warm/dry Procedures/Interventions Date of ETT Placement: Feb 18, 2021 Time of ETT Placement: 1432 Progress/Results/Core Measures Suspected Sepsis SIRS Temperature: Pulse: 126 Respiratory Rate: 24 Blood Pressure 135 /75 Mean: 95 Results/Orders Lab Results Laboratory Tests Test 08/19/22 22:21 Range/Units My Orders Orders - STEPHY GARRETT APRN Hcg,Quantitative (08/19/22 22:00) Heart Tones (08/19/22 22:00) Abo Rh Type (08/19/22 22:07) Accucheck Stat ONCE (08/19/22 22:25) Promethazine Injection (Phenergan Injec (08/19/22 22:45) Diphenhydramine Tablet (Benadryl Tablet) (08/19/22 22:45) Medications Given in ED Current Medications Medications Dose Ordered Sig/Thierno Route Start Time Stop Time Status Last Admin Dose Admin Promethazine HCl 25 mg ONCE ONCE IM 08/19/22 22:45 08/19/22 22:46 DC 08/19/22 22:42 25 MG Vital Signs/I&O 08/19/22 21:49 Temp 36.8 Pulse 126 Resp 24 B/P (MAP) 135/75 (95) Pulse Ox 99 O2 Delivery Room Air Capillary Refill : Less Than 3 Seconds Blood Pressure Mean: 95 Progress Note : Progress Note Patient is nontoxic and well-hydrated on exam. Patient is initially somewhat tachycardic but states that she is very anxious. Her heart rate improved during her stay in the ED. Blood pressure is reassuring. Abdominal exam is benign without any focal provocation of pain or rigidity/distention. Patient has no symptomology consistent with significant acute blood loss. heart tones were obtained. Bedside ultrasound was also obtained that showed apparent intrauterine with cardiac activity and movement. Her blood sugar was checked and it was noted to be high. She corrected this with her insulin pump. She also had some nausea that was treated with an IM shot of Phenergan. Will discharge home with recommendations for supportive care and close follow-up with BEHAVIORAL SCIENTIST on Sunday. Discussed pelvic rest. Return precautions for urgent symptomology discussed. Patient verbalized understanding Departure Impression Primary Impression: Threatened miscarriage Disposition: HOME, SELF-CARE Condition: Stable Departure-Patient Inst. Decision time for Depature: 22:50 Referrals: COLT LAMBERT DO (PCP/Family) Primary Care Physician Patient Instructions: Threatened Miscarriage (DC) STEPHY GARRETT APRN Aug 19, 2022 22:06
[2022-08-19] MEDS ORDERED: PROMETHAZINE INJ 25 MG/ML (PHENERGAN) AMP IM ONE (22:45)
[2022-08-19] MEDS ORDERED: diphenhydrAMINE 25 MG TAB (BENADRYL) PO ONE (22:45)
[2022-08-19 23:07] VITALS: BP 135/75
== END 2022-08-19 23:09 | disposition home or self-care (01) ==
LOC: EDUNIT# 21:44 → ER 21:46
DX: O20.0 Threatened abortion (principal); O24.912 Unspecified diabetes mellitus in pregnancy, second trimester; O99.332 Smoking (tobacco) complicating pregnancy, second trimester; F17.290 Nicotine dependence, other tobacco product, uncomplicated; Z79.4 Long term (current) use of insulin; Z96.41 Presence of insulin pump (external) (internal); Z3A.14 14 weeks gestation of pregnancy
CPT/HCPCS: 36415; 84702; 86900; 86901

== ENCOUNTER 2022-08-20 00:56 | Inpatient (IN) | payer BC, MEDICAID ==
[~2022-08-20] VITALS: Ht 175.3 cm; Wt 102.6 kg
[2022-08-20] MEDS ORDERED: LACTATED RINGERS 1,000 ML IV STA (01:17)
[2022-08-20] MEDS ORDERED: inSUlin (REGULAR) HUMAN 1 UNIT/0.01 ML (CHARGE PER UNIT) IV STA (01:17)
--- NOTE | 2022-08-20 01:24 | ED General ---
General Stated Complaint: VOMITING - HIGH BLOOD SUGAR Source of Information: Patient Exam Limitations: No Limitations History of Present Illness Date Seen by Provider: Aug 20, 2022 Time Seen by Provider: 01:00 Initial Comments Here with report of vomiting and high blood sugar. She was seen earlier for concerns about possible miscarriage and she is approximately 14 weeks. She follows with high density press laborer in [place]. She was recently admitted for DKA. She has insulin pump in place and she was unable to bolus enough to get to better blood sugars and states her blood sugars are running over 600. She is quite a nxious and irritable and having persistent vomiting. Patient states that she is in DKA. Timing/Duration: 4-6 Hours Severity: Moderate, Severe Associated Systoms: No Fever/Chills; Nausea/Vomiting, Shortness of Air, Weakness Allergies and Home Medications Allergies Coded Allergies: bismuth subsalicylate (Verified Allergy, Unknown, 10/27/21) Patient Home Medication List Home Medication List Reviewed: Yes Acetaminophen (Tylenol Extra Strength) 500 Mg Tablet, 1,000 MG PO Q8H PRN for PAIN-MILD (1-4), (Reported) Entered as Reported by: COLT BOURNE on 02/16/22 1100 Insulin Lispro (Insulin Lispro) 100 Unit/Ml Vial, UNITS SC UD, (Reported) Entered as Reported by: COLT BOURNE on 08/17/22 1223 Pnv with Ca,No.72/Iron/FA (Pnv Plus Multivit Tab) 27 Mg Iron-1 Mg Tablet, 1 EA PO DAILY@0700 Prescribed by: JOSIE SMYTH on 08/18/222001 Discontinued Medications Cefdinir (Cefdinir) 300 Mg Capsule, 300 MG PO BID Discontinued Reason: No Longer Taking Prescribed by: SANTI SOSA on 05/02/22 0332 Ibuprofen (Ibuprofen) 200 Mg Tablet, 400-600 MG PO Q8H PRN for PAIN-MILD (1-4), (Reported) Discontinued Reason: No Longer Taking Entered as Reported by: COLT BOURNE on 11/21/21 1006 Insulin Aspart (Insulin Aspart Flexpen) 100 Unit/1 Ml Insuln.pen, UNIT SQ AC, (Reported) Discontinued Reason: No Longer Taking Entered as Reported by: COLT BOURNE on 11/21/21 1006 Insulin Glargine,Hum.rec.anlog (Lantus Solostar) 100 Unit/Ml (3 Ml) Insuln.pen, 35 UNIT SQ HS, (Reported) Discontinued Reason: No Longer Taking Entered as Reported by: COLT BOURNE on 07/25/21 0936 Insulin Glargine,Hum.rec.anlog (Lantus Solostar) 100 Unit/Ml (3 Ml) Insuln.pen, 25 UNIT SQ DAILY, (Reported) Discontinued Reason: No Longer Taking Entered as Reported by: COLT BOURNE on 07/25/21 0936 Ondansetron (Ondansetron Odt) 4 Mg Tab.rapdis, 4 MG SL Q4H Discontinued Reason: No Longer Taking Prescribed by: SANTI SOSA on 05/02/22 0332 Review of Systems Review of Systems Constitutional: see HPI; No chills, No fever EENTM: No nose congestion, No throat pain Respiratory: No cough, No short of breath Cardiovascular: No chest pain, No edema Gastrointestinal: nausea, vomiting Genitourinary: frequency; No pain Musculoskeletal: No joint pain; muscle pain Skin: No change in color, No lesions Psychiatric/Neurological: Anxiety, Weakness All Other Systems Reviewed Negative Unless Noted: Yes Past Vnpygam-Qpsckb-Xsyzff Hx Patient Social History Use of E-Cig and/or Vaping dev: Yes E-Cig or Vaping type used: Nicotine Use of E-Cig and/or Vaping Tom: Current Someday User Immunizations Up To Date Tetanus Booster (TDap): Less than 5yrs PED Vaccines UTD: Yes First/Initial COVID19 Vaccinat: APR 2021 Second COVID19 Vaccination [place]: MAY 2021 Seasonal Allergies Seasonal Allergies: No Past Medical History Surgery/Hospitalization HX: DM 1 Surgeries: No Respiratory: No Currently Using CPAP: No Currently Using BIPAP: No Cardiac: Yes (TACHYCARDIA) Palpitations Neurological: No Reproductive Disorders: No Female Reproductive Disorders: Denies Sexually Transmitted Disease: No HIV/AIDS: No Genitourinary: Yes Bladder Infection Gastrointestinal: Yes (CANNABIS HYPEREMESIS; CHRONIC 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 DX AGE 12) Diabetes, Insulin dep HEENT: No Loss of Vision: Denies Hearing Impairment: Denies Cancer: No Psychosocial: Yes Anxiety, Depression Integumentary: No Blood Disorders: No Adverse Reaction/Blood Tranf: No Family Medical History Reviewed Nursing Family Hx No Pertinent Family Hx Physical Exam Vital Signs Vital Signs - First Documented 08/20/22 01:02 Temp 36.3 Pulse 115 Resp 32 B/P (MAP) 151/81 (104) Pulse Ox 99 O2 Delivery Room Air Capillary Refill : Height, Weight, BMI Height: 5'9.00" Weight: 255lbs. 0oz. [id number]; 32.00 BMI Method:Stated General Appearance: WD/WN, Moderate Distress HEENT: PERRL/EOMI, Other (Mucous membranes dry) Neck: Full Range of Motion, Normal Inspection, Non Tender Respiratory: Lungs Clear, Normal Breath Sounds Cardiovascular: No Murmur, Tachycardia Gastrointestinal: Soft, Tenderness (Diffusely) Back: Normal Inspection, No CVA Tenderness, No Vertebral Tenderness Extremity: Normal Range of Motion, Non Tender Neurologic/Psychiatric: Alert, Oriented x3 Skin: Normal Color, Warm/Dry Procedures/Interventions Date of ETT Placement: Feb 18, 2021 Time of ETT Placement: 1432 Progress/Results/Core Measures Suspected Sepsis SIRS Temperature: Pulse: Respiratory Rate: Laboratory Tests 08/20/22 01:12: White Blood Count 25.6H Blood Pressure / Mean: Laboratory Tests 08/20/22 01:12: Creatinine 1.72H, Platelet Count 417H, Total Bilirubin 0.5 Results/Orders Lab Results Laboratory Tests Test 08/20/22 01:12 08/20/22 01:18 Range/Units White Blood Count 25.6 H 4.3-11.0 10^3/uL Red Blood Count 5.52 H 3.80-5.11 10^6/uL Hemoglobin 14.0 # 11.5-16.0 g/dL Hematocrit 43 35-52 % Mean Corpuscular Volume 78 L 80-99 fL Mean Corpuscular Hemoglobin 25 25-34 pg Mean Corpuscular Hemoglobin Concent 32 32-36 g/dL Red Cell Distribution Width 13.1 10.0-14.5 % Platelet Count 417 H 130-400 10^3/uL Mean Platelet Volume 11.5 9.0-12.2 fL Immature Granulocyte % (Auto) 1 % Neutrophils (%) (Auto) 90 H 42-75 % Lymphocytes (%) (Auto) 6 L 12-44 % Monocytes (%) (Auto) 3 0-12 % Eosinophils (%) (Auto) 0 0-10 % Basophils (%) (Auto) 0 0-10 % Neutrophils # (Auto) 22.9 H 1.8-7.8 10^3/uL Lymphocytes # (Auto) 1.6 1.0-4.0 10^3/uL Monocytes # (Auto) 0.8 0.0-1.0 10^3/uL Eosinophils # (Auto) 0.0 0.0-0.3 10^3/uL Basophils # (Auto) 0.1 0.0-0.1 10^3/uL Immature Granulocyte # (Auto) 0.2 H 0.0-0.1 10^3/uL Neutrophils % (Manual) 89 % Lymphocytes % (Manual) 7 % Monocytes % (Manual) 4 % Blood Morphology Comment NORMAL Urine Color YELLOW Urine Clarity CLEAR Urine pH 5.5 5-9 Urine Specific [place] >=1.030 1.016-1.022 Urine Protein NEGATIVE NEGATIVE Urine Glucose (UA) 3+ H NEGATIVE Urine Ketones 3+ H NEGATIVE Urine Nitrite NEGATIVE NEGATIVE Urine Bilirubin NEGATIVE NEGATIVE Urine Urobilinogen 0.2 < = 1.0 MG/DL Urine Leukocyte Esterase NEGATIVE NEGATIVE Urine RBC (Auto) 1+ H NEGATIVE Urine RBC NONE /HPF Urine WBC NONE /HPF Urine Squamous Epithelial Cells 2-5 /HPF Urine Crystals NONE /LPF Urine Bacteria TRACE /HPF Urine Casts NONE /LPF Urine Mucus NEGATIVE /LPF Urine Culture Indicated NO Sodium Level 130 L 135-145 MMOL/L Potassium Level 5.4 H 3.6-5.0 MMOL/L Chloride Level 95 L 98-107 MMOL/L Carbon Dioxide Level 5 *L 21-32 MMOL/L Anion Gap 30 H 5-14 MMOL/L Blood Urea Nitrogen 20 H 7-18 MG/DL Creatinine 1.72 H 0.60-1.30 MG/DL Estimat Glomerular Filtration Rate 43 BUN/Creatinine Ratio 12 Glucose Level 785 *H 70-105 MG/DL Calcium Level 10.5 H 8.5-10.1 MG/DL Corrected Calcium 8.5-10.1 MG/DL Phosphorus Level 8.3 H 2.3-4.7 MG/DL Magnesium Level 2.2 1.6-2.4 MG/DL Total Bilirubin 0.5 0.1-1.0 MG/DL Aspartate Amino Transf (AST/SGOT) 16 5-34 U/L Alanine Aminotransferase (ALT/SGPT) 19 0-55 U/L Alkaline Phosphatase 116 40-136 U/L C-Reactive Protein High Sensitivity 4.47 H 0.00-0.50 MG/DL Total Protein 8.7 H 6.4-8.2 GM/DL Albumin 4.7 H 3.2-4.5 GM/DL Venous Blood pH 7.09 L 7.31-7.41 Venous Blood Partial Pressure CO2 20 L 40-52 MMHG Venous Blood HCO3 6 L 22-28 MMOL/L My Orders Orders - ANGELY MEDEL MD Cbc With Automated Diff (08/20/22:17) Comprehensive Metabolic Panel (08/20/22:17) Hs C Reactive Protein (08/20/22:17) Magnesium (08/20/22:17) Ua Culture If Indicated (08/20/22:17) Phosphorus (08/20/22:17) Ondansetron Injection (Zofran Injectio (08/20/22 01:30) Lactated Ringers (Lr 1000 Ml Iv Solution (08/20/22:17) Ed Iv/Invasive Line Start (08/20/22 01:17) Insulin (Regular) Human (Novolin R (Per (08/20/22:17) Venous Blood Gas (08/20/22 01:24) Fentanyl Inj (Sublimaze Injection) (08/20/22 01:30) Manual Differential (08/20/22 01:12) Medications Given in ED Current Medications Medications Dose Ordered Sig/Thierno Route Start Time Stop Time Status Last Admin Dose Admin Fentanyl Citrate 50 mcg ONCE ONCE IVP 08/20/22 01:30 08/20/22 01:31 DC 08/20/22 01:38 50 MCG Ondansetron HCl 4 mg ONCE ONCE IVP 08/20/22 01:30 08/20/22 01:31 DC 08/20/22 01:38 4 MG Vital Signs/I&O 08/20/22 01:02 Temp 36.3 Pulse 115 Resp 32 B/P (MAP) 151/81 (104) Pulse Ox 99 O2 Delivery Room Air Capillary Refill : Progress Note : Progress Note Seen and evaluated. Patient very likely suffering from DKA. Blood sugar too high to read. IV to right bicep area by me via ultrasound guidance x1 stick with 20-gauge long needle. CBC, CMP, magnesium, phosphate, UA and venous blood gas ordered. LR 1 L bolus. Insulin 7 units IV ordered. Patient still on her pump with basal rate at approximately 1.7 units/h. She is at about 14 weeks. We did see her earlier in the evening for that. Bedside ultrasound performed at that time showed positive heart tones and movement. Diagnosis threatened miscarriage. She states that she is not bleeding much after that. She has been vomiting fairly persistently since leaving earlier. She was just admitted a few days ago and discharged on the for DKA. Patient has reporting significant pain. Zofran 4 mg IV and fentanyl 50 mcg IV ordered. Monitor patient. 0236: Patient does have findings of DKA with CO2 less than 10 and blood sugar greater than 700 on chemistry. She does have elevated serum creatinine that is mild indicating moderate dehydration and/or renal insufficiency. Also has elevated white count which I believe is secondary to dehydration and status. Urine does show ketones. Patient will need admission for diabetic ketoacidosis. 0238: I did discuss the case with Dr. Smyth and she accepts patient for admission, inpatient status to the ICU with DKA order set. Patient and family agree to plan.. Departure Communication (Admissions) Time/Spoke to Admitting Phy: 02:38 Impression Primary Impression: Diabetic ketoacidosis Qualified Codes: E10.10 - Type 1 diabetes mellitus with ketoacidosis without coma Disposition: ADMITTED INPATIENT Condition: Stable Admissions Decision to Admit Reason: Admit from ER (General) Decision to Admit/Date: Aug 20, 2022 Time/Decision to Admit Time: 02:38 Departure-Patient Inst. Referrals: COLT LAMBERT DO (PCP/Family) Primary Care Physician ANGELY MEDEL MD Aug 20, 2022 01:24
[2022-08-20] MEDS ORDERED: ONDANSETRON 4 MG/2 ML (SDV) Z0FRAN IVP ONE (01:30)
[2022-08-20] MEDS ORDERED: fentaNYL INJ 100 MCG/2 ML AMP IVP ONE (01:30)
[2022-08-20 01:33] LABS: BASOPHILS # (AUTO) 0.1 10^3/uL (0.0-0.1); BASOPHILS % (AUTO) 0 % (0-10); EOSINOPHILS % (AUTO) 0 % (0-10); HEMATOCRIT 43 % (35-52); LYMPHOCYTES # (AUTO) 1.6 10^3/uL (1.0-4.0); LYMPHOCYTES % (AUTO) 6 % (12-44); MEAN CORPUSCULAR HEMOGLOBIN 25 pg (25-34); MEAN CORPUSCULAR HGB CONC 32 g/dL (32-36); MEAN CORPUSCULAR VOLUME 78 fL (80-99); MEAN PLATELET VOLUME 11.5 fL (9.0-12.2); MONOCYTES # (AUTO) 0.8 10^3/uL (0.0-1.0); MONOCYTES % (AUTO) 3 % (0-12); NEUTROPHILS # (AUTO) 22.9 10^3/uL (1.8-7.8); NEUTROPHILS % (AUTO) 90 % (42-75); PLATELET COUNT 417 10^3/uL (130-400); WHITE BLOOD COUNT 25.6 10^3/uL (4.3-11.0)
[2022-08-20 01:44] LABS: BILIRUBIN,URINE NEGATIVE (NEGATIVE); CLARITY,URINE CLEAR; COLOR,URINE YELLOW; GLUCOSE, URINE (UA) 3+ (NEGATIVE); KETONES,URINE 3+ (NEGATIVE); LEUKOCYTE ESTERASE ,URINE NEGATIVE (NEGATIVE); NITRITE,URINE NEGATIVE (NEGATIVE); PH,URINE 5.5 (5-9); PROTEIN,URINE NEGATIVE (NEGATIVE)
[2022-08-20 01:48] LABS: ALANINE AMINOTRANSFERASE 19 U/L (0-55); ALBUMIN 4.7 GM/DL (3.2-4.5); ALKALINE PHOSPHATASE 116 U/L (40-136); BILIRUBIN,TOTAL 0.5 MG/DL (0.1-1.0); BUN/CREATININE RATIO 12; CALCIUM 10.5 MG/DL (8.5-10.1); CHLORIDE 95 MMOL/L (98-107); CREATININE SERUM 1.72 MG/DL (0.60-1.30); GFR ESTIMATED 43; MAGNESIUM 2.2 MG/DL (1.6-2.4); PHOSPHORUS 8.3 MG/DL (2.3-4.7); POTASSIUM 5.4 MMOL/L (3.6-5.0); SODIUM 130 MMOL/L (135-145); TOTAL PROTEIN 8.7 GM/DL (6.4-8.2)
[2022-08-20 02:15] LABS: NEUTROPHILS % (MANUAL) 89 %
[2022-08-20 02:16] LABS: LYMPHOCYTES % (MANUAL) 7 %; MONOCYTES % (MANUAL) 4 %; RBC MORPH NORMAL
[2022-08-20 02:18] LABS: BACTERIA,URINE TRACE /HPF
[2022-08-20 02:31] LABS: CARBON DIOXIDE 5 MMOL/L (21-32); GLUCOSE 785 MG/DL (70-105)
[2022-08-20 03:27] VITALS: BP 106/59
[2022-08-20] MEDS ORDERED: ONDANSETRON 4 MG/2 ML (SDV) Z0FRAN IV PRN (03:45)
--- NOTE | 2022-08-20 03:52 | Tele-ICU Consult ---
History of Present Illness History of Present Illness Date Seen by Provider: Aug 20, 2022 Time Seen by Provider: 03:47 Date of Admission eICU consultation 22 yo F with freqent admissions for DkA comes to ED with severe DKA. VBG pH 7.06 pCO2 20 HCO3 6 Pt having nausea pt had some vaginal bleeding, Started on DKA protocol Initial glu 786, AG 30 Cr 1.72 BUn 20 Was just in hospital a few days ago for DKA Has insulin pump pt thinks pump is working Pt is about 14 weeks Allergies and Home Medications Allergies Coded Allergies: bismuth subsalicylate (Verified Allergy, Unknown, 10/27/21) Home Medications Acetaminophen 500 Mg Tablet, 1,000 MG PO Q8H PRN for PAIN-MILD (1-4), (Reported) Insulin Lispro 100 Unit/Ml Vial, UNITS SC UD, (Reported) USES VIA PUMP Pnv with Ca,No.72/Iron/FA 27 Mg Iron-1 Mg Tablet, 1 EA PO DAILY@0700 Prescribed by: JOSIE SMYTH on 08/18/222001 Past Medical/Social/Family Hx Patient Social History Tobacco Use?: No Use of E-Cig and/or Vaping dev: Yes E-Cig or Vaping type used: Nicotine E-Cig and/or Vaping Freq: Current Someday User Substance use?: No Alcohol Use?: No Immunizations Up To Date First/Initial COVID19 Vaccinat: APR 2021 Second COVID19 Vaccination [place]: MAY 2021 Tetanus Booster (TDap): Unknown Hepatitis A: Yes Hepatitis B: Yes TB Skin Test: None Current Status status: Yes Advance Directives: No Communicates: Verbally Primary Language: Indian Preferred Spoken Language: Indian Is interpretation needed?: No Past Medical History PMHx: Type I DM Depression SurgHx: Denies Review of Systems Constitutional: weakness Gastrointestinal: nausea, vomiting Genitourinary: other (has had vaginal bleeding) : Yes Psychiatric/Neurological: Headache Focused Exam Height, Weight, BMI Height: 5'9.00" Weight: 255lbs. 0oz. 115.548806wg; 32.00 BMI Method:Stated Exam Exam Patient acknowledged, consented, and participated in this virtual visit which was conducted using real time audio/video Vital Signs Date Time Temp Pulse Resp B/P (MAP) Pulse Ox O2 Delivery O2 Flow Rate FiO2 08/20/22 01:02 36.3 115 32 151/81 (104) 99 Room Air I & O 08/20/22 07:00 Intake Total 1000 ml Balance 1000 ml Height & Weight Height: 5'9.00" Weight: 255lbs. 0oz. 115.767878wx; 32.00 BMI Method:Stated General Appearance: WD/WN, Moderate Distress HEENT: PERRL/EOMI, Other (Mucous membranes dry) Neck: Full Range of Motion, Normal Inspection, Non Tender Respiratory: Lungs Clear, Normal Breath Sounds, Respiratory Distress Cardiovascular: No Murmur, Tachycardia Capillary Refill: Less Than 3 Seconds Extremity: Normal Range of Motion, Non Tender Neurologic/Psychiatric: Alert, Oriented x3, Other (no stiff neck) Skin: Normal Color, Warm/Dry Results Lab Laboratory Tests 08/20/22 01:12 Assessment/Plan Assessment/Plan 1. Severe DKA, will continue on DKA protocol, monitor potassium phosphate 2. IUP, will be seen by OB in am, HCG 33k 3.Elevated WBC 25k, UA ok, from DKA, would do blood cultures, do pt afebrile Critical Care: Critically Ill Patient Time spent with patient (mins): 20 VENANCIO MAYEN MD Aug 20, 2022 03:52
[2022-08-20] MEDS ORDERED: NS IV 1000 ML 1,000 ML IV SCH (04:00)
[2022-08-20] MEDS: fentaNYL INJ 100 MCG/2 ML AMP IV PRN ×4 (04:26→23:15)
[2022-08-20 05:11] LABS: ALBUMIN 4.5 GM/DL (3.2-4.5); BILIRUBIN,TOTAL 0.3 MG/DL (0.1-1.0); CALCIUM 9.9 MG/DL (8.5-10.1); CREATININE SERUM 1.58 MG/DL (0.60-1.30); MAGNESIUM 2.2 MG/DL (1.6-2.4); PHOSPHORUS 5.7 MG/DL (2.3-4.7); POTASSIUM 5.8 MMOL/L (3.6-5.0); TOTAL PROTEIN 8.3 GM/DL (6.4-8.2)
[2022-08-20] MEDS: NS IV 1000 ML 1,000 ML IV SCH ×2 (05:38→06:30)
[2022-08-20 05:48] LABS: BASOPHILS % (AUTO) 0 % (0-10); EOSINOPHILS % (AUTO) 0 % (0-10); HEMATOCRIT 42 % (35-52); HEMOGLOBIN 13.7 g/dL (11.5-16.0); LYMPHOCYTES # (AUTO) 1.1 X 10^3 (1.0-4.0); LYMPHOCYTES % (AUTO) 4 % (12-44); MEAN CORPUSCULAR HEMOGLOBIN 25 pg (25-34); MEAN CORPUSCULAR HGB CONC 33 g/dL (32-36); MEAN CORPUSCULAR VOLUME 78 fL (80-99); MEAN PLATELET VOLUME 11.5 fL (9.0-12.2); MONOCYTES # (AUTO) 0.8 X 10^3 (0.0-1.0); MONOCYTES % (AUTO) 3 % (0-12); NEUTROPHILS # (AUTO) 23.4 X 10^3 (1.8-7.8); NEUTROPHILS % (AUTO) 92 % (42-75); PLATELET COUNT 396 10^3/uL (130-400); WHITE BLOOD COUNT 25.4 10^3/uL (4.3-11.0)
[2022-08-20 05:49] LABS: LYMPHOCYTES % (MANUAL) 5 %; MONOCYTES % (MANUAL) 4 %; NEUTROPHILS % (MANUAL) 91 %; RBC MORPH NORMAL
--- NOTE | 2022-08-20 06:21 | History & Physical-Hospitalist ---
History of Present Illness HPI/Chief Complaint CC: DKA HPI: This is a 22yoWF who is 13 weeks who has brittle DM and frequent DKA who is on a insulin pump who was just DC Sunday evening to home who presents to the ER with N/V and found to have DKA. Patient is currently doing better. Threatened was assessed on a recent ER visit but she is no longer bleeding. Lovenox will be held due to that. SCD's on. Source: patient Exam Limitations: no limitations Date Seen 08/20/22 Time Seen by a Provider: 11:00 Attending Physician Carlos Lyn DO PCP Admitting Physician: Patito Diamond DO Attending Physician: Patito Diamond DO Referring Physician Date of Admission Aug 20, 2022 at 02:38 Home Medications & Allergies Home Medications Reviewed patient Home Medication Reconciliation performed by pharmacy medication reconciliations wireless field technician and/or nursing. Patients Allergies have been reviewed. Allergies Allergies Coded Allergies bismuth subsalicylate (Verified Allergy, Unknown, 10/27/21) Past Bgdtppi-Ladibc-Lfxcwf Hx Patient Social History Marrital Status: single Employed/Student: unemployed Tobacco Use?: No Smoking Status: Never a Smoker Use of E-Cig and/or Vaping dev: Yes E-Cig or Vaping type used: Nicotine Use of E-Cig and/or Vaping Tom: Current Everyday User Substance use?: No Alcohol Use?: No Pt feels they are or have been: No Immunizations Up To Date Date of Influenza Vaccine: Jul 03, 2021 First/Initial COVID19 Vaccinat: APR 2021 Second COVID19 Vaccination [place]: MAY 2021 Tetanus Booster (TDap): Less Than 5 Years Hepatitis A: Yes Hepatitis B: Yes PED Vaccines UTD: Yes Seasonal Allergies Seasonal Allergies: No Current Status status: Yes status: No Advance Directives: No Communicates: Verbally Primary Language: Zambian Preferred Spoken Language: Zambian Is interpretation needed?: No Implanted or Applied Medical D: Insulin pump Past Medical History Currently Using CPAP: No Currently Using BIPAP: No Palpitations Sexually Transmitted Disease: No HIV/AIDS: No Bladder Infection Diabetes, Insulin dep Loss of Vision: Denies Hearing Impairment: Denies Anxiety, Depression Blood Disorders: No Adverse Reaction/Blood Tranf: No PMHx: Type I DM Depression SurgHx: Denies Family Medical History Reviewed Nursing Family Hx No Pertinent Family Hx Review of Systems Constitutional: see HPI Physical Exam Physical Exam Vital Signs Vital Signs - First Documented 08/20/22 01:02 Temp 36.3 Pulse 115 Resp 32 B/P (MAP) 151/81 (104) Pulse Ox 99 O2 Delivery Room Air Capillary Refill : Less Than 3 Seconds Height, Weight, BMI Height: 5'9.00" Weight: 255lbs. 0oz. 115.467416ws; 31.43 BMI Method:Stated General Appearance: No Apparent Distress Eyes: Right Eye Normal Inspection, Right Eye PERRL HEENT: PERRL/EOMI, TMs Normal, Normal ENT Inspection, Pharynx Normal, Moist Mucous Membranes Neck: Full Range of Motion, Normal Inspection, Non Tender Respiratory: Chest Non Tender, Lungs Clear, Normal Breath Sounds, No Accessory Muscle Use, No Respiratory Distress Cardiovascular: Regular Rate, Rhythm, No Edema, No Gallop, No JVD, No Murmur, Normal Peripheral Pulses Gastrointestinal: Normal Bowel Sounds, No Organomegaly, No Pulsatile Mass, Non Tender, Soft Back: Normal Inspection, No CVA Tenderness, No Vertebral Tenderness Extremity: Normal Capillary Refill, Normal Inspection, Normal Range of Motion, Non Tender, No Calf Tenderness, No Pedal Edema Neurologic/Psychiatric: Alert, Oriented x3, No Motor/Sensory Deficits, Normal Mood/Affect Skin: Normal Color, Warm/Dry Lymphatic: No Adenopathy Results Results/Procedures Labs Laboratory Tests 08/20/22 01:12 08/20/22 04:20 08/20/22 12:20 Patient resulted labs reviewed. Assessment/Plan Admission Diagnosis Assessment: DKA Dehydration N/V Plan: IV insulin Monitor closely Admission Status: Inpatient Order (span 2 midnights) Reason for Inpatient Admission: dka PATITO DIAMOND DO Aug 20, 2022 06:21
[2022-08-20] MEDS: 1/2 NS IV SOLUTION 1,000 ML IV SCH ×5 (07:09→20:00)
--- NOTE | 2022-08-20 07:48 | Tele-ICU Progress Note ---
Progress Note video rounds completed. 22 y/o female with multiple prior admissions for DKA Now admitted with DKA and intrauterine at approximately 14 wks Presented in DKA with some vaginal bleeding Currently on IV insulin protocol PE: resting comfortably in bed HR 118-20 BP" 116/70 O2 sat 98% last BS: 324 A IMP: DKA on insulin drip protocol IUP and vaginal bleeding awaiting GYNE consult tachycardia, probably volume related due to DKA PLAN: awaiting GYNE consult Continue insulin drip and aggressive IV hydration time spent: 20 minutes Focused Exam Lactate Level 08/20/22 04:20: Lactic Acid Level 3.35*H 08/20/22 07:00: Lactic Acid Level 1.29 Height, Weight, BMI Height: 5'9.00" Weight: 255lbs. 0oz. 115.089691fg; 31.98 BMI Method:Stated Lactic Acid Level Laboratory Tests Test 08/20/22 04:20 08/20/22 07:00 Lactic Acid Level 3.35 MMOL/L (0.50-2.00) *H 1.29 MMOL/L (0.50-2.00) Labs Laboratory Tests 08/20/22 01:12 08/20/22 04:20 Results Results/Procedures Labs Laboratory Tests 08/20/22 01:12 08/20/22 04:20 Patient resulted labs reviewed. Results Labs Labs Laboratory Tests 08/20/22 01:12: White Blood Count 25.6H, Red Blood Count 5.52H, Hemoglobin 14.0#, Hematocrit 43, Mean Corpuscular Volume 78L, Mean Corpuscular Hemoglobin 25, Mean Corpuscular Hemoglobin Concent 32, Red Cell Distribution Width 13.1, Platelet Count 417H, Mean Platelet Volume 11.5, Immature Granulocyte % (Auto) 1, Neutrophils (%) (Auto) 90H, Lymphocytes (%) (Auto) 6L, Monocytes (%) (Auto) 3, Eosinophils (%) (Auto) 0, Basophils (%) (Auto) 0, Neutrophils # (Auto) 22.9H, Lymphocytes # (Auto) 1.6, Monocytes # (Auto) 0.8, Eosinophils # (Auto) 0.0, Basophils # (Auto) 0.1, Immature Granulocyte # (Auto) 0.2H, Neutrophils % (Manual) 89, Lymphocytes % (Manual) 7, Monocytes % (Manual) 4, Blood Morphology Comment NORMAL, Urine Color YELLOW, Urine Clarity CLEAR, Urine pH 5.5, Urine Specific [place] >=1.030, Urine Protein NEGATIVE, Urine Glucose (UA) 3+H, Urine Ketones 3+H, Urine Nitrite NEGATIVE, Urine Bilirubin NEGATIVE, Urine Urobilinogen 0.2, Urine Leukocyte Esterase NEGATIVE, Urine RBC (Auto) 1+H, Urine RBC NONE, Urine WBC NONE, Urine Squamous Epithelial Cells 2-5, Urine Crystals NONE, Urine Bacteria TRACE, Urine Casts NONE, Urine Mucus NEGATIVE, Urine Culture Indicated NO, Sodium Level 130L, Potassium Level 5.4H, Chloride Level 95L, Carbon Dioxide Level 5*L, Anion Gap 30H, Blood Urea Nitrogen 20H, Creatinine 1.72H, Estimat Glomerular Filtration Rate 43, BUN/Creatinine Ratio 12, Glucose Level 785*H, Calcium Level 10.5H, Corrected Calcium , Phosphorus Level 8.3H, Magnesium Level 2.2, Total Bilirubin 0.5, Aspartate Amino Transf (AST/SGOT) 16, Alanine Aminotransferase (ALT/SGPT) 19, Alkaline Phosphatase 116, C-Reactive Protein High Sensitivity 4.47H, Total Protein 8.7H, Albumin 4.7H 08/20/22 01:18: Venous Blood pH 7.09L, Venous Blood Partial Pressure CO2 20L, Venous Blood HCO3 6L 08/20/22 03:36: Glucometer 492*H 08/20/22 04:20: White Blood Count 25.4H, Red Blood Count 5.39H, Hemoglobin 13.7, Hematocrit 42, Mean Corpuscular Volume 78L, Mean Corpuscular Hemoglobin 25, Mean Corpuscular Hemoglobin Concent 33, Red Cell Distribution Width 13.2, Platelet Count 396, Mean Platelet Volume 11.5, Immature Granulocyte % (Auto) 0, Neutrophils (%) (Auto) 92H, Lymphocytes (%) (Auto) 4L, Monocytes (%) (Auto) 3, Eosinophils (%) (Auto) 0, Basophils (%) (Auto) 0, Neutrophils # (Auto) 23.4H, Lymphocytes # (Auto) 1.1, Monocytes # (Auto) 0.8, Eosinophils # (Auto) 0.0, Basophils # (Auto) 0.0, Immature Granulocyte # (Auto) 0.1, Neutrophils % (Manual) 91, Lymphocytes % (Manual) 5, Monocytes % (Manual) 4, Blood Morphology Comment NORMAL, Sodium Level 131L, Potassium Level 5.8H, Chloride Level 100, Carbon Dioxide Level 5*L, Anion Gap 26H, Blood Urea Nitrogen 20H, Creatinine 1.58H, Estimat Glomerular Filtration Rate 48, BUN/Creatinine Ratio 13, Glucose Level 606*H, Calcium Level 9.9, Corrected Calcium 9.5, Phosphorus Level 5.7H, Magnesium Level 2.2, Total Bilirubin 0.3, Aspartate Amino Transf (AST/SGOT) 17, Alanine Aminotransferase (ALT/SGPT) 16, Alkaline Phosphatase 105, Total Protein 8.3H, Albumin 4.5, Lactic Acid Level 3.35*H, Beta-Hydroxybutyrate (Chem panel) 8.84H 08/20/22 05:02: Glucometer 499*H 08/20/22 06:04: Glucometer 382H 08/20/22 07:00: Lactic Acid Level 1.29 08/20/22 07:01: Glucometer 324H VENANCIO ROGERS MD Aug 20, 2022 07:48
[2022-08-20] MEDS: D5 1/2 NS 1000 ML IV SOLUTION 1,000 ML IV SCH ×4 (09:12→22:11)
[2022-08-20] MEDS ORDERED: DOCUSATE SODIUM 100 MG (COLACE) CAP PO PRN (10:00)
[2022-08-20] MEDS ORDERED: CALCIUM CARBONATE 500 MG (TUMS) TAB.CHEW PO PRN (10:00)
[2022-08-20] MEDS ORDERED: LACTULOSE SYRUP 10GM/15ML (ENULOSE) 30ML UDC PO PRN (10:00)
[2022-08-20] MEDS ORDERED: diphenhydrAMINE 25 MG TAB (BENADRYL) PO PRN (10:00)
[2022-08-20] MEDS ORDERED: MELATONIN 3 MG TABLET PO PRN (10:00)
[2022-08-20 12:45] LABS: CALCIUM 8.6 MG/DL (8.5-10.1); CREATININE SERUM 1.2 MG/DL (0.60-1.30); POTASSIUM 4.6 MMOL/L (3.6-5.0)
[2022-08-20] MEDS: POTASSIUM CL 10MEQ/50ML IVPB 50 ML IV SCH ×3 (14:44→22:59)
[2022-08-20 19:59] LABS: CALCIUM 8.4 MG/DL (8.5-10.1); CREATININE SERUM 0.87 MG/DL (0.60-1.30); POTASSIUM 3.6 MMOL/L (3.6-5.0)
[2022-08-20] MEDS: SENNA W/DOCUSATE (SENOKOT S) TABLET PO SCH (21:00)
[2022-08-21 01:22] LABS: CALCIUM 8.1 MG/DL (8.5-10.1); CREATININE SERUM 0.79 MG/DL (0.60-1.30); POTASSIUM 3.6 MMOL/L (3.6-5.0)
[2022-08-21] MEDS: D5 1/2 NS 1000 ML IV SOLUTION 1,000 ML IV SCH ×6 (02:11→22:35)
[2022-08-21] MEDS: fentaNYL INJ 100 MCG/2 ML AMP IV PRN ×4 (03:03→22:36)
[2022-08-21] MEDS: 1/2 NS IV SOLUTION 1,000 ML IV SCH ×6 (04:00→20:00)
[2022-08-21] MEDS: POTASSIUM CL 10MEQ/50ML IVPB 50 ML IV SCH ×4 (04:06→16:30)
[2022-08-21 05:18] LABS: BASOPHILS % (AUTO) 0 % (0-10); EOSINOPHILS # (AUTO) 0.1 10^3/uL (0.0-0.3); EOSINOPHILS % (AUTO) 1 % (0-10); HEMATOCRIT 32 % (35-52); HEMOGLOBIN 10.9 g/dL (11.5-16.0); LYMPHOCYTES # (AUTO) 3.2 10^3/uL (1.0-4.0); LYMPHOCYTES % (AUTO) 22 % (12-44); MEAN CORPUSCULAR HEMOGLOBIN 26 pg (25-34); MEAN CORPUSCULAR HGB CONC 35 g/dL (32-36); MEAN CORPUSCULAR VOLUME 74 fL (80-99); MEAN PLATELET VOLUME 11.4 fL (9.0-12.2); MONOCYTES # (AUTO) 0.7 10^3/uL (0.0-1.0); MONOCYTES % (AUTO) 5 % (0-12); NEUTROPHILS # (AUTO) 10.7 10^3/uL (1.8-7.8); NEUTROPHILS % (AUTO) 72 % (42-75); PLATELET COUNT 277 10^3/uL (130-400); WHITE BLOOD COUNT 14.8 10^3/uL (4.3-11.0)
[2022-08-21 05:40] LABS: BILIRUBIN,TOTAL 0.5 MG/DL (0.1-1.0); CALCIUM 8.1 MG/DL (8.5-10.1); CREATININE SERUM 0.76 MG/DL (0.60-1.30); MAGNESIUM 1.6 MG/DL (1.6-2.4); PHOSPHORUS 2.1 MG/DL (2.3-4.7); POTASSIUM 3.7 MMOL/L (3.6-5.0); TOTAL PROTEIN 5.5 GM/DL (6.4-8.2)
[2022-08-21] MEDS: MAGNESIUM 1 GM/100 ML IVPB 100 ML IV SCH ×3 (06:00→07:45)
[2022-08-21 07:30] LABS: CREATININE SERUM 0.75 MG/DL (0.60-1.30); POTASSIUM 3.7 MMOL/L (3.6-5.0)
--- NOTE | 2022-08-21 08:24 | Tele-ICU Progress Note ---
Subjective Date Seen by a Provider: Aug 21, 2022 Time Seen by a Provider: 08:20 Subjective/Events-last exam Admited for DKA, latest glu 141, HCO3 15 at 8 am, was 13 at 4am, Beta OH 0.07, renal and liver function ok AG 7, remains on IV insulin drip. Looks tired, looks like could eat, will start diet 14 weeks IUP, await OB consult, no further vaginal bleeding Sepsis Event Evaluation Height, Weight, BMI Height: 5'9.00" Weight: 255lbs. 0oz. 115.196514fy; 33.74 BMI Method:Stated Focused Exam Lactate Level 08/20/22 04:20: Lactic Acid Level 3.35*H 08/20/22 07:00: Lactic Acid Level 1.29 Exam Exam Patient acknowledged, consented, and participated in this virtual visit which was conducted using real time audio/video Vital Signs Date Time Temp Pulse Resp B/P (MAP) Pulse Ox O2 Delivery O2 Flow Rate FiO2 08/21/22 08:00 89 14 97/64 (75) 98 Room Air 08/21/22 07:21 92 08/21/22 07:00 90 35 98/66 (77) 98 Room Air 08/21/22 06:04 90 14 95/59 (71) 99 Room Air 08/21/22 05:00 89 16 95/58 (70) 97 Room Air 08/21/22 04:00 98 Room Air 08/21/22 04:00 93 15 99/60 (73) 98 Room Air 08/21/22 03:00 88 97/60 (72) 98 Room Air 08/21/22 02:00 85 18 94/53 (67) 89 Room Air 08/21/22 01:00 82 08/21/22 01:00 82 15 97 Room Air 08/21/22 00:00 93 14 107/63 (78) 98 Room Air 08/20/22 23:59 99 Room Air 08/20/22 23:54 37.0 08/20/22 23:00 86 19 114/70 (85) 99 Room Air 08/20/22 22:00 89 20 92/59 (70) 100 Room Air 08/20/22 21:34 89 15 92/65 (74) 98 Room Air 08/20/22 20:00 93 28 100/59 (73) 98 Room Air 08/20/22 20:00 97 Room Air 08/20/22 19:53 37.5 08/20/22 19:00 110 16 110/63 (79) 97 Room Air 08/20/22 19:00 110 08/20/22 18:00 108 18 101/56 (71) 99 Room Air 08/20/22 17:00 99 19 115/67 (83) 99 Room Air 08/20/22 16:16 100 Room Air 08/20/22 16:00 99 19 115/67 (83) 99 Room Air 08/20/22 15:17 37.8 08/20/22 15:00 98 16 107/68 (81) 99 Room Air 08/20/22 14:00 96 20 129/65 (86) 99 Room Air 08/20/22 13:00 112 23 113/65 (81) 100 Room Air 08/20/22 12:53 115 08/20/22 12:00 113 25 112/55 (74) 95 Room Air 08/20/22 12:00 99 Room Air 08/20/22 11:25 37.2 08/20/22 11:00 103 20 108/60 (76) 98 Room Air 08/20/22 10:00 106 18 105/61 (76) 97 Room Air 08/20/22 09:00 108 18 107/52 (70) 98 Room Air I & O 08/21/22 07:00 Intake Total 6075 ml Output Total 2175 ml Balance 3900 ml Height & Weight Height: 5'9.00" Weight: 255lbs. 0oz. 115.170778ud; 33.74 BMI Method:Stated General Appearance: No Apparent Distress HEENT: PERRL/EOMI, TMs Normal, Normal ENT Inspection, Pharynx Normal, Moist Mucous Membranes Neck: Full Range of Motion, Normal Inspection, Non Tender Respiratory: Chest Non Tender, Lungs Clear, Normal Breath Sounds, No Accessory Muscle Use, No Respiratory Distress Cardiovascular: Regular Rate, Rhythm, No Edema, No Gallop, No JVD, No Murmur, Normal Peripheral Pulses Capillary Refill: Less Than 3 Seconds Gastrointestinal: non tender, soft Extremity: Normal Capillary Refill, Normal Inspection, Normal Range of Motion, Non Tender, No Calf Tenderness, No Pedal Edema Neurologic/Psychiatric: Alert, Oriented x3, No Motor/Sensory Deficits, Normal Mood/Affect Skin: Normal Color, Warm/Dry Lymphatic: No Adenopathy Results Lab Laboratory Tests 08/20/22 01:12 08/20/22 04:20 08/20/22 12:20 08/20/22 19:05 08/21/22 00:50 08/21/22 04:35 08/21/22 07:10 Assessment/Plan Assessment/Plan DKA resolving, once can eat, 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
[2022-08-21] MEDS: SENNA W/DOCUSATE (SENOKOT S) TABLET PO SCH ×2 (09:06→21:00)
--- NOTE | 2022-08-21 09:24 | Progress Note - Hospitalist ---
Subjective HPI/CC On Admission Date Seen by Provider: Aug 21, 2022 Time Seen by Provider: 09:15 CC: DKA HPI: This is a 22yoWF who is 13 weeks who has brittle DM and frequent DKA who is on a insulin pump who was just DC Sunday evening to home who presents to the ER with N/V and found to have DKA. Patient is currently doing better. Threatened was assessed on a recent ER visit but she is no longer bleeding. Lovenox will be held due to that. SCD's on. Subjective/Events-last exam Patient doing much better Advancing diet No vaginal bleeding Insulin drip continues Review of Systems General: Fatigue, Malaise Focused Exam Lactate Level 08/20/22 04:20: Lactic Acid Level 3.35*H 08/20/22 07:00: Lactic Acid Level 1.29 Objective Exam Vital Signs Vital Signs Date Time Temp Pulse Resp B/P (MAP) Pulse Ox O2 Delivery O2 Flow Rate FiO2 08/22/22 00:00 80 110/57 (74) 98 Room Air 08/21/22 23:51 36.3 08/21/22 23:00 13 Capillary Refill : Less Than 3 Seconds General Appearance: No Apparent Distress, WD/WN, Chronically ill Respiratory: Lungs Clear, Normal Breath Sounds Cardiovascular: Regular Rate, Rhythm, Tachycardia Neurologic/Psychiatric: Alert, Oriented x3, No Motor/Sensory Deficits, Depressed Affect Results/Procedures Lab Laboratory Tests 08/21/22 04:35 08/21/22 07:10 08/21/22 12:56 08/21/22 20:35 08/22/22 01:20 Patient resulted labs reviewed. Assessment/Plan Assessment and Plan Assess & Plan/Chief Complaint Assessment: DKA 14 weeks Plan: Insulin drip Critical Care Critically Ill Patient Clinical Quality Measures DVT/VTE Risk/Contraindication: Contraindications-Pharm: Other *list below* Other: threatened JOSIE SMYTH DO Aug 21, 2022 09:24
--- NOTE | 2022-08-21 10:59 | Diagnostic Imaging Report ---
PROCEDURE: US OB SINGLE FETUS <14 WKS. TECHNIQUE: Multiple real-time grayscale images were obtained over the gravid uterus in various projections. INDICATION: 1st trimester bleeding. COMPARISON: None. FINDINGS: A single live intrauterine gestation is visualized with a crown-rump length measuring 7.8 cm consistent with a 13 week 6 day gestation. heart tones measure 147 bpm. The placenta is posterior. The NATASHA visually is normal. No obvious abnormalities are seen. Views of the adnexa demonstrate no evidence of mass or free fluid. The ovaries are suboptimally visualized due to bowel gas. IMPRESSION: 1. Single live intrauterine gestation. No acute abnormalities are identified. Recommend continued follow-up as indicated. Dictated by: Dictated on workstation # [id number]
[2022-08-21] MEDS: ACETAMINOPHEN 325 MG TABLET PO PRN ×2 (11:11→17:02)
[2022-08-21] MEDS: FERROUS SULF 325 MG (IRON) TAB PO SCH (11:11)
--- NOTE | 2022-08-21 12:24 | Consultation ---
HPI History of Present Illness: This is a 22 year old G1 at 14wk2d based on early US with VERNON of 02/17/23 per patient report. Patient is admitted for DKA and is currently stable/improved on insulin drip. Patient receives care from Dr. Ayala at [facility] and has been receiving adequate care. She is followed by Dr. Dave for Endocrinology through [facility]. has been complicated by an episode of vaginal bleeding on 08/19/22. She awoke from a nap and noted cramping and vaginal bleeding that lasted for about 20 minutes. She was seen at the [facility] ED and bedside US revealed normal FHT and movement. Pt denied intercourse within 2 days of the bleeding. Bleeding has subsequently stopped and she denies further cramping or issues. Otherwise has only been complicated by nausea for which she take promethazine and Depression for which she takes Lexapro. Patient reports normal testing and ultrasounds to date. Source: patient Exam Limitations: no limitations Date seen by provider: Aug 21, 2022 Time Seen by Provider: 09:[address] Diamond PCP Dr. Lyn Consult Dr. Hawkins Date of Admission Aug 20, 2022 at 02:38 Home Medications Home Medications Reviewed patient Home Medication Reconciliation performed by pharmacy medication reconciliations counter intelligence technician and/or nursing. Patients Allergies have been reviewed. 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: [employer] Past Medical History PMHx: Type I DM Depression SurgHx: Denies Family Medical History Significant Family History: No Pertinent Family Hx Review of Systems (CHC) Constitutional: see HPI Reviewed Test Results Reviewed Test Results Lab Laboratory Tests 08/21/22 00:50: Sodium Level 133L, Potassium Level 3.6, Chloride Level 113H, Carbon Dioxide Level 12L, Anion Gap 8, Blood Urea Nitrogen 8, Creatinine 0.79, Estimat Glomerular Filtration Rate 110, BUN/Creatinine Ratio 10, Glucose Level 157H, Calcium Level 8.1L 08/21/22 01:12: Glucometer 150H 08/21/22 02:02: Glucometer 151H 08/21/22 03:05: Glucometer 145H 08/21/22 04:03: Glucometer 131H 08/21/22 04:35: White Blood Count 14.8H, Red Blood Count 4.24, Hemoglobin 10.9#L, Hematocrit 32L , Mean Corpuscular Volume 74L, Mean Corpuscular Hemoglobin 26, Mean Corpuscular Hemoglobin Concent 35, Red Cell Distribution Width 13.2, Platelet Count 277, Mean Platelet Volume 11.4, Immature Granulocyte % (Auto) 1, Neutrophils (%) (Auto) 72, Lymphocytes (%) (Auto) 22, Monocytes (%) (Auto) 5, Eosinophils (%) (Auto) 1, Basophils (%) (Auto) 0, Neutrophils # (Auto) 10.7H, Lymphocytes # (Auto) 3.2, Monocytes # (Auto) 0.7, Eosinophils # (Auto) 0.1, Basophils # (Auto) 0.0, Immature Granulocyte # (Auto) 0.1, Sodium Level 134L, Potassium Level 3.7, Chloride Level 114H, Carbon Dioxide Level 13L, Anion Gap 7, Blood Urea Nitrogen 7, Creatinine 0.76, Estimat Glomerular Filtration Rate 115, BUN/Creatinine Ratio 9, Glucose Level 133H, Calcium Level 8.1L, Corrected Calcium 8.9, Phosphorus Level 2.1L, Magnesium Level 1.6, Total Bilirubin 0.5, Aspartate Amino Transf (AST/SGOT) 15, Alanine Aminotransferase (ALT/SGPT) 13, Alkaline Phosphatase 58, Total Protein 5.5L, Albumin 3.0L 08/21/22 05:29: Glucometer 134H 08/21/22 06:07: Glucometer 137H 08/21/22 07:05: Glucometer 153H 08/21/22 07:10: Sodium Level 135, Potassium Level 3.7, Chloride Level 114H, Carbon Dioxide Level 15L, Anion Gap 6, Blood Urea Nitrogen 6L, Creatinine 0.75, Estimat Glomerular Filtration Rate 117, BUN/Creatinine Ratio 8, Glucose Level 148H, Calcium Level 8.0L, Beta-Hydroxybutyrate (Chem panel) 0.07 08/21/22 08:04: Glucometer 141H 08/21/22 08:56: Glucometer 153H 08/21/22 10:02: Glucometer 160H 08/21/22 10:57: Glucometer 197H 08/21/22 12:03: Glucometer 289H Physical Exam-(CHC) Physical Exam Vital Signs VS - Last 72 Hours, by Label 08/20/22 08/20/22 08/20/22 08/20/22 01:02 03:27 03:50 04:01 Temp 36.3 Pulse 115 115 117 Resp 32 20 B/P (MAP) 151/81 (104) 106/59 Pulse Ox 99 100 100 O2 Delivery Room Air Room Air Room Air 08/20/22 08/20/22 08/20/22 08/20/22 07:00 07:00 07:22 07:40 Temp 37.5 Pulse 110 110 Resp 19 B/P (MAP) 116/70 (85) Pulse Ox 100 99 O2 Delivery Room Air Room Air 08/20/22 08/20/22 08/20/22 08/20/22 08:00 09:00 10:00 11:00 Pulse 114 108 106 103 Resp 18 18 18 20 B/P (MAP) 103/56 (72) 107/52 (70) 105/61 (76) 108/60 (76) Pulse Ox 99 98 97 98 O2 Delivery Room Air Room Air Room Air Room Air 08/20/22 08/20/22 08/20/22 08/20/22 11:25 12:00 12:00 12:53 Temp 37.2 Pulse 113 115 Resp 25 B/P (MAP) 112/55 (74) Pulse Ox 99 95 O2 Delivery Room Air Room Air 08/20/22 08/20/22 08/20/22 08/20/22 13:00 14:00 15:00 15:17 Temp 37.8 Pulse 112 96 98 Resp 23 20 16 B/P (MAP) 113/65 (81) 129/65 (86) 107/68 (81) Pulse Ox 100 99 99 O2 Delivery Room Air Room Air Room Air 08/20/22 08/20/22 08/20/22 08/20/22 16:00 16:16 17:00 18:00 Pulse 99 99 108 Resp 19 19 18 B/P (MAP) 115/67 (83) 115/67 (83) 101/56 (71) Pulse Ox 99 100 99 99 O2 Delivery Room Air Room Air Room Air Room Air 08/20/22 08/20/22 08/20/22 08/20/22 19:00 19:00 19:53 20:00 Temp 37.5 Pulse 110 110 Resp 16 B/P (MAP) 110/63 (79) Pulse Ox 97 97 O2 Delivery Room Air Room Air 08/20/22 08/20/22 08/20/22 08/20/22 20:00 21:34 22:00 23:00 Pulse 93 89 89 86 Resp 28 15 20 19 B/P (MAP) 100/59 (73) 92/65 (74) 92/59 (70) 114/70 (85) Pulse Ox 98 98 100 99 O2 Delivery Room Air Room Air Room Air Room Air 08/20/22 08/20/22 08/21/22 08/21/22 23:54 23:59 00:00 01:00 Temp 37.0 Pulse 93 82 Resp 14 15 B/P (MAP) 107/63 (78) Pulse Ox 99 98 97 O2 Delivery Room Air Room Air Room Air 08/21/22 08/21/22 08/21/22 08/21/22 01:00 02:00 03:00 04:00 Pulse 82 85 88 93 Resp 18 15 B/P (MAP) 94/53 (67) 97/60 (72) 99/60 (73) Pulse Ox 89 98 98 O2 Delivery Room Air Room Air Room Air 08/21/22 08/21/22 08/21/22 08/21/22 04:00 05:00 06:04 07:00 Pulse 89 90 90 Resp 16 14 35 B/P (MAP) 95/58 (70) 95/59 (71) 98/66 (77) Pulse Ox 98 97 99 98 O2 Delivery Room Air Room Air Room Air Room Air 08/21/22 08/21/22 08/21/22 08/21/22 07:21 08:00 08:00 08:00 Temp 36.6 Pulse 92 89 Resp 14 B/P (MAP) 97/64 (75) Pulse Ox 98 97 O2 Delivery Room Air Room Air 08/21/22 08/21/22 08/21/22 08/21/22 10:00 11:00 11:50 12:00 Temp 36.2 Pulse 103 100 102 Resp 29 14 17 B/P (MAP) 116/70 (85) 139/89 (106) 110/65 (80) Pulse Ox 98 100 100 O2 Delivery Room Air Room Air Room Air Capillary Refill : Less Than 3 Seconds General Appearance: WD/WN HEENT: PERRL/EOMI Neck: full range of motion Respiratory: lungs clear, normal breath sounds, no respiratory distress, no accessory muscle use Cardiovascular: regular rate, rhythm Gastrointestinal: non tender, soft Extremities: normal capillary refill Neurologic/Psychiatric: alert, normal mood/affect, oriented x 3 Skin: normal color, warm/dry Comments FHT doppler 148-150. Assessment/Plan Assessment/Plan Admission Dx DKA Admission Status: Inpatient Order (span 2 midnights) Assessment & Plan 1. G1 at 14w2d based on early ultrasound. -currently admitted to ICU for treatment of DKA -will obtain OB ultrasound due to recent vaginal bleeding -continue PNV, may continue other home med of lexapro -has appointment with OB (Dr. Ayala) on 08/30/22 2. DKA -management per Dr. Diamond -has appointment with Human Capital Analyst (Dr. Dave) on 08/25/22 3. Recent vaginal bleeding in -resolved -OB ultrasound for further evaluation -normal FHT on today's exam 4. Anemia of -add ferrous sulfate daily to PNV Clinical Quality Measures DVT/VTE Risk/Contraindication: Contraindications-Pharm: Other *list below* Other: threatened HOWARD HAWKINS DO Aug 21, 2022 12:24
[2022-08-21 13:45] LABS: CALCIUM 7.9 MG/DL (8.5-10.1); CREATININE SERUM 0.79 MG/DL (0.60-1.30)
[2022-08-21 21:10] LABS: CALCIUM 8.2 MG/DL (8.5-10.1); CREATININE SERUM 0.73 MG/DL (0.60-1.30); POTASSIUM 3.8 MMOL/L (3.6-5.0)
[2022-08-22 01:47] LABS: CALCIUM 7.8 MG/DL (8.5-10.1); CREATININE SERUM 0.58 MG/DL (0.60-1.30); POTASSIUM 3.5 MMOL/L (3.6-5.0)
[2022-08-22] MEDS: D5 1/2 NS 1000 ML IV SOLUTION 1,000 ML IV SCH ×2 (02:45→08:05)
[2022-08-22] MEDS: fentaNYL INJ 100 MCG/2 ML AMP IV PRN ×7 (02:45→23:20)
[2022-08-22] MEDS: 1/2 NS IV SOLUTION 1,000 ML IV SCH ×3 (04:00→08:08)
[2022-08-22 04:44] LABS: BASOPHILS % (AUTO) 0 % (0-10); EOSINOPHILS # (AUTO) 0.1 10^3/uL (0.0-0.3); EOSINOPHILS % (AUTO) 2 % (0-10); HEMATOCRIT 30 % (35-52); HEMOGLOBIN 10.2 g/dL (11.5-16.0); LYMPHOCYTES # (AUTO) 2.8 10^3/uL (1.0-4.0); LYMPHOCYTES % (AUTO) 38 % (12-44); MEAN CORPUSCULAR HEMOGLOBIN 26 pg (25-34); MEAN CORPUSCULAR HGB CONC 34 g/dL (32-36); MEAN CORPUSCULAR VOLUME 75 fL (80-99); MEAN PLATELET VOLUME 10.2 fL (9.0-12.2); MONOCYTES # (AUTO) 0.6 10^3/uL (0.0-1.0); MONOCYTES % (AUTO) 7 % (0-12); NEUTROPHILS % (AUTO) 53 % (42-75); PLATELET COUNT 259 10^3/uL (130-400); WHITE BLOOD COUNT 7.5 10^3/uL (4.3-11.0)
[2022-08-22] MEDS: POTASSIUM CL 10MEQ/50ML IVPB 50 ML IV SCH ×3 (04:53→14:42)
[2022-08-22 05:05] LABS: ALBUMIN 2.7 GM/DL (3.2-4.5); BILIRUBIN,TOTAL 0.3 MG/DL (0.1-1.0); CALCIUM 7.9 MG/DL (8.5-10.1); CREATININE SERUM 0.6 MG/DL (0.60-1.30); MAGNESIUM 1.7 MG/DL (1.6-2.4); PHOSPHORUS 2.6 MG/DL (2.3-4.7); POTASSIUM 3.7 MMOL/L (3.6-5.0); TOTAL PROTEIN 5.3 GM/DL (6.4-8.2)
[2022-08-22] MEDS: MAGNESIUM 1 GM/100 ML IVPB 100 ML IV SCH ×3 (06:00→08:05)
--- NOTE | 2022-08-22 06:09 | Progress Note - Hospitalist ---
Subjective HPI/CC On Admission Date Seen by Provider: Aug 22, 2022 Time Seen by Provider: 10:00 CC: DKA HPI: This is a 22yoWF who is 13 weeks who has brittle DM and frequent DKA who is on a insulin pump who was just DC Sunday evening to home who presents to the ER with N/V and found to have DKA. Patient is currently doing better. Threatened was assessed on a recent ER visit but she is no longer bleeding. Lovenox will be held due to that. SCD's on. Subjective/Events-last exam No major issues Still on insulin drip We will try to wean off today Review of Systems General: Fatigue, Malaise Focused Exam Lactate Level 08/20/22 04:20: Lactic Acid Level 3.35*H 08/20/22 07:00: Lactic Acid Level 1.29 Objective Exam Vital Signs Vital Signs Date Time Temp Pulse Resp B/P (MAP) Pulse Ox O2 Delivery O2 Flow Rate FiO2 08/23/22 03:49 100 Room Air 08/23/22 03:48 36.8 08/23/22 00:00 91 28 129/89 (102) Capillary Refill : Less Than 3 Seconds General Appearance: No Apparent Distress, WD/WN, Chronically ill Respiratory: Lungs Clear, Normal Breath Sounds Cardiovascular: Regular Rate, Rhythm Neurologic/Psychiatric: Alert, Oriented x3 Results/Procedures Lab Laboratory Tests 08/22/22 04:30 08/22/22 10:47 08/22/22 12:30 08/22/22 19:25 Patient resulted labs reviewed. Assessment/Plan Assessment and Plan Assess & Plan/Chief Complaint Assessment: DKA 14 weeks Plan: Insulin drip transition to subcu Critical Care Critically Ill Patient Clinical Quality Measures DVT/VTE Risk/Contraindication: Contraindications-Pharm: Other *list below* Other: threatened JOSIE SMYTH DO Aug 22, 2022 06:09
[2022-08-22] MEDS: FERROUS SULF 325 MG (IRON) TAB PO SCH (06:20)
[2022-08-22] MEDS: PRENATAL VITAMIN 1 EA TAB PO SCH (06:20)
[2022-08-22] MEDS: ACETAMINOPHEN 325 MG TABLET PO PRN (08:06)
[2022-08-22] MEDS: SENNA W/DOCUSATE (SENOKOT S) TABLET PO SCH ×2 (08:08→20:11)
[2022-08-22] MEDS ORDERED: ACETAMINOPHEN 500 MG TAB (TYLENOL) PO PRN (09:15)
--- NOTE | 2022-08-22 10:52 | Tele-ICU Progress Note ---
Subjective Date Seen by a Provider: Aug 22, 2022 Time Seen by a Provider: 10:51 Subjective/Events-last exam Available chart/ vitals / labs / Images reviewed Video assessment done using teleICU camera, rest of exam as per RN Discussed with RN , EXAM PER RN Events overnight : Afebrile FiO2 - ra I/O = pos Pressors: , hemodynamically stable Patient admitted 03/26 - DKA A/P DKA , recurrent ( multiple admission this year with same Dx *Insulin drip to stop this am , start long acting -has appointment with Core Drill Operator G1 at 14w2d - seen by OBGYN Anemia -Anemia of -add ferrous sulfate daily to PNV - episode of vaginal bleeding on 08/19/22 VTE Prophylaxis: contraindicated now with recent bleeding Stress Ulcer Prophylaxis: NA Plans in collaboration with bedside consultants and IM MDs. Discussed with RN to reach out if any questions or concerns A total of 15 minutes of critical care time was devoted to this patient today, required to treat and/or prevent further deterioration of critical care condition ( as above Sepsis Event Evaluation Height, Weight, BMI Height: 5'9.00" Weight: 255lbs. 0oz. [id number]; 34.52 BMI Method:Stated Focused Exam Lactate Level 08/20/22 04:20: Lactic Acid Level 3.35*H 08/20/22 07:00: Lactic Acid Level 1.29 Exam Exam Patient acknowledged, consented, and participated in this virtual visit which was conducted using real time audio/video Vital Signs Date Time Temp Pulse Resp B/P (MAP) Pulse Ox O2 Delivery O2 Flow Rate FiO2 08/22/22 10:00 98 26 114/67 (83) 98 Room Air 08/22/22 09:00 100 114/67 (83) 98 Room Air 08/22/22 08:00 77 12 115/73 (87) 99 Room Air 08/22/22 08:00 99 Room Air 08/22/22 07:49 36.8 Non Rebreather 08/22/22 07:00 75 27 108/79 (89) 99 Room Air 08/22/22 07:00 77 08/22/22 06:00 82 17 119/70 (86) 98 Room Air 08/22/22 05:00 80 35 111/83 (92) 99 Room Air 08/22/22 04:00 76 19 107/68 (81) 98 Room Air 08/22/22 04:00 99 Room Air 08/22/22 03:00 84 15 110/65 (80) 98 Room Air 08/22/22 02:00 79 15 98/66 (77) 99 Room Air 08/22/22 01:00 102 08/22/22 01:00 80 28 107/67 (80) 99 Room Air 08/22/22 00:00 80 110/57 (74) 98 Room Air 08/21/22 23:59 98 Room Air 08/21/22 23:51 36.3 08/21/22 23:00 85 13 104/65 (78) 98 Room Air 08/21/22 22:00 98 16 114/70 (85) 99 Room Air 08/21/22 21:00 99 118/103 (108) 100 Room Air 08/21/22 20:00 98 124/83 (97) 100 Room Air 08/21/22 20:00 97 Room Air 08/21/22 19:00 104 122/73 (89) 100 Room Air 08/21/22 19:00 91 08/21/22 19:00 36.5 08/21/22 18:00 96 31 110/66 (81) 98 Room Air 08/21/22 17:00 106 8 129/89 (102) 99 Room Air 08/21/22 16:00 107 145/94 (111) 100 Room Air 08/21/22 16:00 99 Room Air 08/21/22 16:00 36.5 08/21/22 15:00 100 22 105/61 (76) 98 Room Air 08/21/22 14:00 103 17 121/79 (93) 99 Room Air 08/21/22 13:00 103 18 115/78 (90) 99 Room Air 08/21/22 12:38 104 08/21/22 12:00 102 17 110/65 (80) 100 Room Air 08/21/22 12:00 97 Room Air 08/21/22 11:50 36.2 08/21/22 11:00 100 14 139/89 (106) 100 Room Air I & O 08/22/22 07:00 Intake Total 2760 ml Output Total 2100 ml Balance 660 ml Height & Weight Height: 5'9.00" Weight: 255lbs. 0oz. [id number]; 34.52 BMI Method:Stated General Appearance: No Apparent Distress, WD/WN, Chronically ill HEENT: PERRL/EOMI, TMs Normal, Normal ENT Inspection, Pharynx Normal, Moist Mucous Membranes Neck: Full Range of Motion, Normal Inspection, Non Tender Respiratory: Lungs Clear, Normal Breath Sounds Cardiovascular: Regular Rate, Rhythm, Tachycardia Capillary Refill: Less Than 3 Seconds Gastrointestinal: non tender, soft Extremity: Normal Capillary Refill, Normal Inspection, Normal Range of Motion, Non Tender, No Calf Tenderness, No Pedal Edema Neurologic/Psychiatric: Alert, Oriented x3, No Motor/Sensory Deficits, Depressed Affect Skin: Normal Color, Warm/Dry Lymphatic: No Adenopathy Results Lab Laboratory Tests 08/20/22 12:20 08/20/22 19:05 08/21/22 00:50 08/21/22 04:35 08/21/22 07:10 08/21/22 12:56 08/21/22 20:35 08/22/22 01:20 08/22/22 04:30 Assessment/Plan Assessment/Plan 1 FRANTZ ENCISO MD Aug 22, 2022 10:52
[2022-08-22 10:59] LABS: POTASSIUM 4.2 MMOL/L (3.6-5.0)
[2022-08-22 11:00] LABS: CALCIUM 7.8 MG/DL (8.5-10.1)
[2022-08-22 11:05] LABS: CREATININE SERUM 0.69 MG/DL (0.60-1.30)
--- NOTE | 2022-08-22 11:17 | Physical Therapy Evaluation ---
PT Evaluation-General Medical Diagnosis Admission Date Aug 20, 2022 at 02:38 Medical Diagnosis: DKA Onset Date: Aug 20, 2022 Therapy Diagnosis Therapy Diagnosis: independent with mobility Height/Weight Height (Feet): 5 Height (Inches): 9.00 Weight (Pounds): 255 Weight (Ounces): 0 Precautions Precautions/Isolations: Standard Precautions Referral Physician: Patito Diamond DO Reason for Referral: Evaluation/Treatment Medical History Pertinent Medical History: DM Reviewed History: Yes Social History Home: Apartment Current Living Status: Significant Other Entry Into Home: Stairs With Railing PT Steps Into Home: 8 Prior Prior Level of Function SCALE: Activities may be completed with or without assistive devices. 6-Vonoddclus-aehefml completes the activity by him/herself with no assistance from a helper. 5-Set-up or Clean-up Assistance-helper sets up or cleans up; patient completes activity. [place] assists only prior to or following the activity. 4-Supervision or Touching Assistance-helper provides verbal cues and/or touching/steadying and/or contact guard assistance as patient completes activity. Assistance may be provided throughout the activity or intermittently. 3-Partial/Moderate Assistance-helper does LESS THAN HALF the effort. [place] lifts, holds or supports trunk or limbs, but provides less than half the effort. 2-Substantial/Maximal Assistance-helper does MORE THAN HALF the effort. [place] lifts or holds trunk or limbs and provides more than half the effort. 4-Fzltcrdpk-ohxkqv does ALL the effort. Patient does none of the effort to complete the activity. Or, the assistance of 2 or more helpers is required for the patient to complete the activity. If activity was not attempted, code reason: 7-Patient Refused. 9-Not Applicable-not attempted and the patient did not perform the activity before the current illness, exacerbation or injury. 10-Not Attempted due to Environmental Limitations-(lack of equipment, weather restraints, etc.). 88-Not Attempted due to Medical Conditions or Safety Concerns. Bed Mobility: 6 Transfers (B,C,W/C): 6 Gait: 6 Stairs: 6 Indoor Mobility (Ambulation): Independent Stairs: Independent PT Evaluation-Current Subjective Patient in bed pre tx, agrees to PT, has minor back pain, significant other in room. Pt/Family Goals "to go home" Objective Patient Orientation: Person, Place, Situation Attachments: IV ROM/Strength ROM Lower Extremities WNL Strength Lower Extremities grossly 5/5 BLE Sensory Vision: Functional Hearing: Functional Sensation Right Lower Extremit: Intact Sensation Left Lower Extremity: Intact Transfers Roll Left to Right (QC): 6 Sit to Lying (QC): 6 Lying to Sitting/Side of Bed(Q: 6 Sit to Stand (QC): 6 Chair/Pka-yn-Rzhed Xfer(QC): 6 Gait Does the Patient Walk?: Yes Mode of Locomotion: Walk Anticipated Mode of Locomotion: Walk Walk 10 feet (QC): 6 Walk 50 ft with 2 Turns(QC): 6 Distance: 60' Gait Assistive Device: None Comments/Gait Description Patient ambulated about the room independently, uses the toilet without assist. Balance Sitting Static: Normal Sitting Dynamic: Normal Standing Static: Normal Standing Dynamic: Normal Assessment/Needs Patient in bed post tx with nurse call, phone, tray, all needs met. Patient is independent with mobility, recommended patient have nurse unplug her IV pole so she can walk on her own several times a day. Rehab Potential: Good PT Plan Treatment/Plan Treatment Plan: Discontinue PT Treatment Duration: Aug 22, 2022 Frequency: Safety Risks/Education Patient Education: Gait Training, Transfer Techniques, Correct Positioning, Safety Issues Teaching Recipient: Patient Teaching Methods: Demonstration, Discussion Response to Teaching: Verbalize Understanding, Return Demonstration Discharge Recommendations Plan DC Time Time In: 1054 Time Out: 1104 DATE: Aug 22, 2022 Total Billed Treatment Time: 10 Total Billed Treatment 1 visit EVL Noe' ANNY CUMMINGS PT Aug 22, 2022 11:17
[2022-08-22] MEDS: NS IV 1000 ML 1,000 ML IV SCH ×2 (11:45→23:20)
[2022-08-22] MEDS ORDERED: PREN-8 PO (11:59)
[2022-08-22 14:01] LABS: CALCIUM 8.4 MG/DL (8.5-10.1); CREATININE SERUM 0.66 MG/DL (0.60-1.30); POTASSIUM 3.8 MMOL/L (3.6-5.0)
[2022-08-22 19:49] LABS: POTASSIUM 4.6 MMOL/L (3.6-5.0)
[2022-08-22 19:50] LABS: CALCIUM 8.5 MG/DL (8.5-10.1)
[2022-08-22 19:55] LABS: CREATININE SERUM 0.8 MG/DL (0.60-1.30)
[2022-08-22] MEDS ORDERED: inSUlin ASPART (NovoLOG) 1 UNIT/0.01 ML (CHARGE PER UNIT) ONE (21:01)
[2022-08-22] MEDS: inSUlin ASPART (NovoLOG) 1 UNIT/0.01 ML (CHARGE PER UNIT) SC SCH (21:03)
[2022-08-23] MEDS: fentaNYL INJ 100 MCG/2 ML AMP IV PRN ×2 (01:43→04:24)
[2022-08-23 04:07] LABS: BASOPHILS % (AUTO) 0 % (0-10); EOSINOPHILS # (AUTO) 0.1 10^3/uL (0.0-0.3); EOSINOPHILS % (AUTO) 1 % (0-10); HEMATOCRIT 33 % (35-52); HEMOGLOBIN 11.2 g/dL (11.5-16.0); LYMPHOCYTES # (AUTO) 2.7 10^3/uL (1.0-4.0); LYMPHOCYTES % (AUTO) 34 % (12-44); MEAN CORPUSCULAR HEMOGLOBIN 26 pg (25-34); MEAN CORPUSCULAR HGB CONC 34 g/dL (32-36); MEAN CORPUSCULAR VOLUME 75 fL (80-99); MEAN PLATELET VOLUME 10.8 fL (9.0-12.2); MONOCYTES # (AUTO) 0.5 10^3/uL (0.0-1.0); MONOCYTES % (AUTO) 6 % (0-12); NEUTROPHILS # (AUTO) 4.7 10^3/uL (1.8-7.8); NEUTROPHILS % (AUTO) 58 % (42-75); PLATELET COUNT 270 10^3/uL (130-400); WHITE BLOOD COUNT 8.1 10^3/uL (4.3-11.0)
[2022-08-23 04:12] LABS: ALBUMIN 3.1 GM/DL (3.2-4.5); BILIRUBIN,TOTAL 0.3 MG/DL (0.1-1.0); CALCIUM 8.4 MG/DL (8.5-10.1); CREATININE SERUM 0.64 MG/DL (0.60-1.30); MAGNESIUM 1.5 MG/DL (1.6-2.4); POTASSIUM 3.6 MMOL/L (3.6-5.0)
[2022-08-23] MEDS: inSUlin ASPART (NovoLOG) 1 UNIT/0.01 ML (CHARGE PER UNIT) SC SCH (06:00)
[2022-08-23] MEDS: PRENATAL VITAMIN 1 EA TAB PO SCH (06:04)
[2022-08-23] MEDS: FERROUS SULF 325 MG (IRON) TAB PO SCH (06:04)
[2022-08-23] MEDS: SENNA W/DOCUSATE (SENOKOT S) TABLET PO SCH (09:07)
--- NOTE | 2022-08-23 09:36 | Discharge Summary ---
Discharge Summary Hospital Course Was the Problem List Reviewed?: Yes Problems/Dx: (1) DKA (diabetic ketoacidosis) Status: Resolved (2) 13 weeks gestation of Status: Acute Hospital Course Date of Admission: Aug 20, 2022 at 02:38 Admission Diagnosis : Family Physician/Provider: Carlos Lyn DO Date of Discharge: 08/23/22 Discharge Diagnosis: [ ] Hospital Course: Short course after admitted for DKA shortly after she was discharged for the same diagnosis. Patient is having more labile sugars due to status. Overall she did well remaining on insulin drip which was transitioned to subcu insulin and she will restart her insulin pump when she gets home. Labs and Pending Lab Test: Laboratory Tests 08/22/22 10:31: Glucometer 315H 08/22/22 10:47: Sodium Level 131L, Potassium Level 4.2, Chloride Level 107, Carbon Dioxide Level 19L, Anion Gap 5, Blood Urea Nitrogen 4L, Creatinine 0.69, Estimat Glomerular Filtration Rate 127, BUN/Creatinine Ratio 6, Glucose Level 324H, Calcium Level 7.8L 08/22/22 11:35: Glucometer 243H 08/22/22 12:30: Sodium Level 134L, Potassium Level 3.8, Chloride Level 108H, Carbon Dioxide Level 20L, Anion Gap 6, Blood Urea Nitrogen 5L, Creatinine 0.66, Estimat Glomerular Filtration Rate 129, BUN/Creatinine Ratio 8, Glucose Level 191H, Calcium Level 8.4L 08/22/22 12:35: Glucometer 175H 08/22/22 13:34: Glucometer 286H 08/22/22 14:31: Glucometer 293H 08/22/22 15:35: Glucometer 255H 08/22/22 16:40: Glucometer 157H 08/22/22 19:25: Sodium Level 132L, Potassium Level 4.6, Chloride Level 101, Carbon Dioxide Level 19L, Anion Gap 12, Blood Urea Nitrogen 7, Creatinine 0.80, Estimat Glomerular Filtration Rate 108, BUN/Creatinine Ratio 9, Glucose Level 392H, Calcium Level 8.5 08/23/22 03:40: Sodium Level 136, Potassium Level 3.6, Chloride Level 104, Carbon Dioxide Level 22, Anion Gap 10, Blood Urea Nitrogen 6L, Creatinine 0.64, Estimat Glomerular Filtration Rate 130, BUN/Creatinine Ratio 9, Glucose Level 132H, Calcium Level 8.4L, White Blood Count 8.1, Red Blood Count 4.39, Hemoglobin 11.2L, Hematocrit 33L, Mean Corpuscular Volume 75L, Mean Corpuscular Hemoglobin 26, Mean Corpuscular Hemoglobin Concent 34, Red Cell Distribution Width 13.6, Platelet Count 270, Mean Platelet Volume 10.8, Immature Granulocyte % (Auto) 0, Neutrophils (%) (Auto) 58, Lymphocytes (%) (Auto) 34, Monocytes (%) (Auto) 6, Eosinophils (%) (Auto) 1, Basophils (%) (Auto) 0, Neutrophils # (Auto) 4.7, Ly mphocytes # (Auto) 2.7, Monocytes # (Auto) 0.5, Eosinophils # (Auto) 0.1, Basophils # (Auto) 0.0, Immature Granulocyte # (Auto) 0.0, Corrected Calcium 9.1, Magnesium Level 1.5L, Total Bilirubin 0.3, Aspartate Amino Transf (AST/SGOT) 20, Alanine Aminotransferase (ALT/SGPT) 21, Alkaline Phosphatase 68, Total Protein 6.0L, Albumin 3.1L, Beta-Hydroxybutyrate (Chem panel) 0.09 Microbiology 08/20/22 Blood Culture - Preliminary, Resulted No growth 08/20/22 MRSA Screen - Final, Complete MRSA not isolated Home Meds Active Reported Formula ( Vit W-Ca,Fe,FA(<1 mg)) 28 Mg Iron-800 Mcg Tablet 1 Each PO BID Insulin Lispro 100 Unit/Ml Vial Units SC UD USES VIA PUMP Tylenol Extra Strength (Acetaminophen) 500 Mg Tablet 1,000 Mg PO Q8H PRN Assessment/Pt Instructions PCP in 1 week Discharge Planning: <30 minutes discharge planning Discharge Instructions Discharge Diet: ADA Diet Discharge Physical Examination Vital Signs Vital Signs Date Time Temp Pulse Resp B/P (MAP) Pulse Ox O2 Delivery O2 Flow Rate FiO2 08/23/22 08:00 99 Room Air 08/23/22 08:00 36.3 92 24 122/81 (95) General Appearance: No Apparent Distress, WD/WN Allergies: Coded Allergies: bismuth subsalicylate (Verified Allergy, Unknown, 10/27/21) Discharge Summary Date of Admission Aug 20, 2022 at 02:38 Date of Discharge Discharge Date: Aug 23, 2022 Admission Diagnosis Assessment: DKA Dehydration N/V Plan: IV insulin Monitor closely Discharge Diagnosis Assessment: DKA 14 weeks Plan: Insulin drip transition to subcu Clinical Quality Measures DVT/VTE Risk/Contraindication: Contraindications-Pharm: Other *list below* Other: threatened JOSIE SMYTH DO Aug 23, 2022 09:36
== END 2022-08-23 10:30 | disposition home or self-care (01) | DRG 831 ==
LOC: ER 00:56 → EDUNIT# 00:56 → ICU 02:38
PROVIDERS: ADMIT Internal Medicine; ATTEND Internal Medicine
DX: O24.012 Pre-existing type 1 diabetes mellitus, in pregnancy, second trimester (principal); E10.10 Type 1 diabetes mellitus with ketoacidosis without coma; Z3A.14 14 weeks gestation of pregnancy; Z79.4 Long term (current) use of insulin; Z96.41 Presence of insulin pump (external) (internal); F17.290 Nicotine dependence, other tobacco product, uncomplicated; E86.0 Dehydration; O99.342 Other mental disorders complicating pregnancy, second trimester; F32.A Depression, unspecified; F41.9 Anxiety disorder, unspecified; O99.012 Anemia complicating pregnancy, second trimester; D64.9 Anemia, unspecified
CPT/HCPCS: 36410; 36415; 76801; 76937; 80048; 80053; 81000; 82010; 82805; 82947; 83036; 83605; 83735; 84100; 85007; 85025; 85027; 86141; 87040; 87081; 96361; 96374; 96375

== ENCOUNTER 2022-08-27 22:03 | Inpatient (IN) | payer BC, MEDICAID ==
[~2022-08-27] VITALS: Ht 175.3 cm; Wt 102.0 kg
[~2022-08-27 22:03] MED LIST changes: +PREN-8 PO
--- NOTE | 2022-08-27 22:32 | ED General ---
General Chief Complaint: Back Problems Stated Complaint: 15 WKS PREG - PAIN ALL OVER Nursing Triage Note: PT TO FT 1 WITH MULTIPLE COMPLAINTS. PT REPORTS IS HAVING R LOWER BACK PAIN THAT GOES TO HER SIDE AND SHE BELIEVES SHE IS DEHYDRATED. PT TOOK TYLENOL AROUND 1700 FOR BACK PAIN Source of Information: Patient, Old Records History of Present Illness Date Seen by Provider: Aug 27, 2022 Time Seen by Provider: 22:25 Initial Comments PT ARRIVES VIA POV FROM HOME STATES SHE "HURTS ALL OVER", WITH HER WORST PAIN BEING IN HER BILATERAL FLANK AREAS HAS HAD GENERALIZED BODY ACHES "ALL DAY" PT IS TYPE 1 DIABETIC, CURRENTLY HAS A C.G.M. AND AN INSULIN PUMP, STATES HER BASAL RATE IS 1.7 PT STATES HER BOYFRIEND IS CURRENTLY A PATIENT UPSTAIRS, AND SHE HAS BEEN HERE WITH HIM TODAY, AND STATES "MY PUMP " WHILE SHE WAS HERE WITH HIM, AROUND 1800 TONIGHT.. SHE STATES THAT IT HAS BEEN WORKING FINE OTHERWISE. STATES SHE WENT HOME TO CHARGE IT, AND STATES HER BLOOD SUGARS "GOT DOWN TO THE 200'S" STATES HER BODY ACHES GOT WORSE AROUND 2000 TONIGHT AND SHE TOOK TYLENOL AROUND 2100 TONIGHT STATES SHE STARTED FEELING THIRSTY AROUND 2100, AND HER FINGERSTICK WAS 314 AT 2130 STATES "MY PUMP ISN'T READING MY C.G.M. BECAUSE IT AND DISCONNECTED MY SENSOR" STATES "I DIDN'T KNOW WHAT WAS GOING ON" --SO SHE CAME HERE C/O THIRST--WANTING WATER SOON SHE ARRIVES NO NAUSEA/VOMITING--SHE ATE CEREAL AROUND 1700 TODAY NO ABDOMINAL PAIN NO FEVER NO COUGH OR URI SYMPTOMS C/O URINARY FREQUENCY PT HAS A LONG HISTORY OF CHRONIC NAUSEA/VOMITING AND ABDOMINAL PAIN AND LONG HISTORY OF MARIJUANA USE. SHE CLAIMS NO RECENT USE. PT IS 15 WEEKS NO VAGINAL BLEEDING OR DISCHARGE OR CRAMPING PT STATES SHE SEES DR. FREY AT [facility] FOR TOUR NARRATOR--LAST VISIT WAS 08/01, AND NEXT APPOINTMENT IS 08/30 SHE SEES TAR MAN AT [facility] STATES HER LAST VISIT WAS LAST MONTH, AND HAS AN APPOINTMENT TOMORROW. PT HAS HAD A MULTITUDE OF VISITS HERE--16 VISITS IN 2021, WITH THIS BEING HER 5TH VISIT IN AUGUST. NEARLY ALL HAVE BEEN FOR DKA SHE WAS MOST RECENTLY ADMITTED HERE 08/16-08/18, AND AGAIN 08/20-08/23 FOR DKA. SHE ALSO WAS SEEN IN ER 08/19. SEE OLD CHARTS FOR DETAILS SHE STATES SHE "DOESN'T KNOW HOW SHE COULD BE IN DKA" BECAUSE SHE JUST GOT OUT OF THE HOSPITAL. SHE STATES "I'M NOT OUT OF IT LIKE I USUALLY AM, AND I'M NOT VOMITING LIKE I USUALLY AM" PCP: DR. Conrad LAMBERT AT [facility] [place] RAISER: DR. FREY AT [facility] AMARIS TAR MAN: PEDRO GLEZ Allergies and Home Medications Allergies Coded Allergies: bismuth subsalicylate (Verified Allergy, Unknown, 10/27/21) Patient Home Medication List Home Medication List Reviewed: Yes Acetaminophen (Tylenol Extra Strength) 500 Mg Tablet, 1,000 MG PO Q8H PRN for PAIN-MILD (1-4), (Reported) Entered as Reported by: COLT BOURNE on 02/16/22 1100 Insulin Lispro (Insulin Lispro) 100 Unit/Ml Vial, UNITS SC UD, (Reported) Entered as Reported by: COLT BOURNE on 08/17/22 1223 Vit W-Ca,Fe,FA(<1 mg) ( Formula) 28 Mg Iron-800 Mcg Tablet, 1 EACH PO BID, (Reported) Entered as Reported by: COLT BOURNE on 08/22/22 1159 Discontinued Medications Pnv with Ca,No.72/Iron/FA (Pnv Plus Multivit Tab) 27 Mg Iron-1 Mg Tablet, 1 EA PO DAILY@0700 Discontinued Reason: Duplicate Order Prescribed by: JOSIE SMYTH on 08/18/222001 Review of Systems Review of Systems Constitutional: no symptoms reported; No chills, No diaphoresis, No dizziness, No fever, No malaise, No weakness EENTM: no symptoms reported Respiratory: no symptoms reported Cardiovascular: no symptoms reported Gastrointestinal: no symptoms reported Genitourinary: see HPI; No dysuria; frequency Musculoskeletal: see HPI Skin: no symptoms reported Psychiatric/Neurological: No Symptoms Reported; Denies Headache, Denies Numbness, Denies Paresthesia Hematologic/Lymphatic: No Symptoms Reported Immunological/Allergic: no symptoms reported Past Ictzyqz-Lyzuvw-Lesdcv Hx Patient Social History Tobacco Use?: No Use of E-Cig and/or Vaping dev: Yes E-Cig or Vaping type used: Nicotine Use of E-Cig and/or Vaping Tom: Current Everyday User Substance use?: Yes Substance type: Marijuana Alcohol Use?: No Pt feels they are or have been: No Immunizations Up To Date Tetanus Booster (TDap): Less than 5yrs PED Vaccines UTD: Yes First/Initial COVID19 Vaccinat: APR 2021 Second COVID19 Vaccination [place]: MAY 2021 Third COVID19 Vaccination Date: APR 2021 Seasonal Allergies Seasonal Allergies: No Past Medical History Surgery/Hospitalization HX: MULTIPLE HOSPITALIZATIONS FOR DKA P:0 Surgeries: No Respiratory: No Currently Using CPAP: No Currently Using BIPAP: No Cardiac: Yes (TACHYCARDIA) Palpitations Neurological: No Reproductive Disorders: No Female Reproductive Disorders: Denies Sexually Transmitted Disease: No HIV/AIDS: No Genitourinary: Yes Bladder Infection Gastrointestinal: Yes (CANNABIS HYPEREMESIS; CHRONIC 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 DX AGE 12) Diabetes, Insulin dep HEENT: No Loss of Vision: Denies Hearing Impairment: Denies Cancer: No Psychosocial: Yes Anxiety, Depression Integumentary: No Blood Disorders: No Adverse Reaction/Blood Tranf: No Family Medical History No Pertinent Family Hx MULTITUDE OF VISITS, MANY FOR DKA/DIABETES RELATED ISSUES ALSO MULTIPLE VISITS FOR CHRONIC NAUSEA/VOMITING AND ABDOMINAL PAIN RELATED TO MARIJANA USE/CANNIBIS HYPEREMESIS. Physical Exam Vital Signs Vital Signs - First Documented 08/27/22 22:18 Temp 36.4 Pulse 92 Resp 18 B/P (MAP) 131/90 (104) Pulse Ox 100 O2 Delivery Room Air Capillary Refill : Less Than 3 Seconds Height, Weight, BMI Height: 5'9.00" Weight: 255lbs. 0oz. [id number]; 32.00 BMI Method:Stated General Appearance: No Apparent Distress, WD/WN, Other (DOES NOT APPEAR ILL OR TO BE IN ANY DISCOMFORT OR DISTRESS. 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 Norm as Tested Skin: Normal Color, Warm/Dry Focused Exam Lactate Level 08/27/22 22:47: Lactic Acid Level 1.16 Lactic Acid Level Laboratory Tests Test 08/27/22 22:47 Lactic Acid Level 1.16 MMOL/L (0.50-2.00) Procedures/Interventions Date of ETT Placement: Feb 18, 2021 Time of ETT Placement: 1432 Progress/Results/Core Measures Suspected Sepsis SIRS Temperature: Pulse: 92 Respiratory Rate: 18 Laboratory Tests 08/27/22 22:47: White Blood Count 10.0 Blood Pressure 131 /90 Mean: 104 08/27/22 22:47: Lactic Acid Level 1.16 Laboratory Tests 08/27/22 22:47: Creatinine 1.08, Platelet Count 306, Total Bilirubin 0.4 Results/Orders Lab Results Laboratory Tests Test 08/27/22 22:30 08/27/22 22:31 08/27/22 22:47 Range/Units Influenza Type A (RT-PCR) Not Detected Not Detecte Influenza Type B (RT-PCR) Not Detected Not Detecte SARS-CoV-2 RNA (RT-PCR) Not Detected Not Detecte Urine Color YELLOW Urine Clarity CLEAR Urine pH 5.5 5-9 Urine Specific [place] 1.010 L 1.016-1.022 Urine Protein NEGATIVE NEGATIVE Urine Glucose (UA) 3+ H NEGATIVE Urine Ketones 3+ H NEGATIVE Urine Nitrite NEGATIVE NEGATIVE Urine Bilirubin NEGATIVE NEGATIVE Urine Urobilinogen 0.2 < = 1.0 MG/DL Urine Leukocyte Esterase NEGATIVE NEGATIVE Urine RBC (Auto) NEGATIVE NEGATIVE Urine RBC NONE /HPF Urine WBC NONE /HPF Urine Squamous Epithelial Cells RARE /HPF Urine Crystals NONE /LPF Urine Bacteria TRACE /HPF Urine Casts NONE /LPF Urine Mucus NEGATIVE /LPF Urine Culture Indicated NO Urine Opiates Screen NEGATIVE NEGATIVE Urine Oxycodone Screen NEGATIVE NEGATIVE Urine Methadone Screen NEGATIVE NEGATIVE Urine Propoxyphene Screen NEGATIVE NEGATIVE Urine Barbiturates Screen NEGATIVE NEGATIVE Ur Tricyclic Antidepressants Screen NEGATIVE NEGATIVE Urine Phencyclidine Screen NEGATIVE NEGATIVE Urine Amphetamines Screen NEGATIVE NEGATIVE Urine Methamphetamines Screen NEGATIVE NEGATIVE Urine Benzodiazepines Screen NEGATIVE NEGATIVE Urine Cocaine Screen NEGATIVE NEGATIVE Urine Cannabinoids Screen NEGATIVE NEGATIVE White Blood Count 10.0 4.3-11.0 10^3/uL Red Blood Count 4.85 3.80-5.11 10^6/uL Hemoglobin 12.2 11.5-16.0 g/dL Hematocrit 38 35-52 % Mean Corpuscular Volume 78 L 80-99 fL Mean Corpuscular Hemoglobin 25 25-34 pg Mean Corpuscular Hemoglobin Concent 32 32-36 g/dL Red Cell Distribution Width 14.2 10.0-14.5 % Platelet Count 306 130-400 10^3/uL Mean Platelet Volume 11.5 9.0-12.2 fL Immature Granulocyte % (Auto) 1 % Neutrophils (%) (Auto) 76 H 42-75 % Lymphocytes (%) (Auto) 18 12-44 % Monocytes (%) (Auto) 5 0-12 % Eosinophils (%) (Auto) 1 0-10 % Basophils (%) (Auto) 0 0-10 % Neutrophils # (Auto) 7.5 1.8-7.8 10^3/uL Lymphocytes # (Auto) 1.8 1.0-4.0 10^3/uL Monocytes # (Auto) 0.5 0.0-1.0 10^3/uL Eosinophils # (Auto) 0.1 0.0-0.3 10^3/uL Basophils # (Auto) 0.0 0.0-0.1 10^3/uL Immature Granulocyte # (Auto) 0.1 0.0-0.1 10^3/uL Sodium Level 128 L 135-145 MMOL/L Potassium Level 4.6 3.6-5.0 MMOL/L Chloride Level 98 98-107 MMOL/L Carbon Dioxide Level 13 L 21-32 MMOL/L Anion Gap 17 H 5-14 MMOL/L Blood Urea Nitrogen 11 7-18 MG/DL Creatinine 1.08 0.60-1.30 MG/DL Estimat Glomerular Filtration Rate 75 BUN/Creatinine Ratio 10 Glucose Level 752 *H 70-105 MG/DL Lactic Acid Level 1.16 0.50-2.00 MMOL/L Calcium Level 9.3 8.5-10.1 MG/DL Corrected Calcium 9.5 8.5-10.1 MG/DL Magnesium Level 1.7 1.6-2.4 MG/DL Total Bilirubin 0.4 0.1-1.0 MG/DL Aspartate Amino Transf (AST/SGOT) 12 5-34 U/L Alanine Aminotransferase (ALT/SGPT) 14 0-55 U/L Alkaline Phosphatase 89 40-136 U/L Total Protein 6.8 6.4-8.2 GM/DL Albumin 3.7 3.2-4.5 GM/DL Amylase Level 56 25-125 U/L Lipase 31 8-78 U/L Beta-Hydroxybutyrate (Chem panel) 4.42 H 0.00-0.27 MMOL/L Procalcitonin 0.10 H <0.10 NG/ML My Orders Orders - LAMONT RANGELA Marcia DO Covid 19 Inhouse Test (08/27/22 22:22) Influenza A And B By Pcr (08/27/22:22) Isolation Central Supply Req (08/27/22:22) Drug Screen Stat (Urine) (08/27/22 22:27) Ua Culture If Indicated (08/27/22:) Accucheck Stat ONCE (08/27/22 22:28) Ed Iv/Invasive Line Start (08/27/22 22:28) Monitor-Rhythm Ecg Trace Only (08/27/22 22:28) Amylase (08/27/22:28) Cbc With Automated Diff (08/27/22:) Comprehensive Metabolic Panel (08/27/22:28) Lactic Acid Analyzer (08/27/22 22:28) Lipase (08/27/22 22:28) Magnesium (08/27/22:28) Procalcitonin (Pct) (08/27/22:28) Beta Hydroxybutyrate (08/27/22 22:28) Hemoglobin A1c (08/27/22 22:28) Ed Iv/Invasive Line Start (08/27/22 22:50) Ns Iv 1000 Ml (Sodium Chloride 0.9%) (08/27/22 23:00) Vital Signs/I&O 08/27/22 22:18 Temp 36.4 Pulse 92 Resp 18 B/P (MAP) 131/90 (104) Pulse Ox 100 O2 Delivery Room Air Capillary Refill : Less Than 3 Seconds Blood Pressure Mean: 104 Progress Note : Progress Note PPE WORN COVID AND FLU TESTING DONE ACCUCHECK READS "HIGH" GIVEN: -IV FLUIDS -INSULIN PT ADAMANTLY REFUSES ABG'S FROM TIME OF ARRIVAL. PT HAD NOT COMPLAINED OF NAUSEA AT ANY TIME, AND WANTED WATER SHE WAS GIVEN WATER AND ICE CHIPS 2344--JUST PRIOR TO BEING TRANSFERRED UPSTAIRS, SHE SUDDENLY VOMITED ALL OVER THE FLOOR, AFTER DENYING NAUSEA LITERALLY 2-3 MINUTES BEFORE THAT. WAS GIVEN REGLAN. NO DETERIORATION IN PT'S CONDITION DURING ER STAY VITALS REMAIN STABLE FHR 150-160'S REVIEWED PREVIOUS RECORDS, INCLUDING H&P'S, CONSULTS, DISCHARGE SUMMARIES. PT WILL NOT ALLOW ABG'S TO BE DRAWN, CLINICALLY SHE IS IN DKA, WITH BLOOD GLUCOSE OF 752, BETA-HYDROXYBUTYRATE IS ELEVATED AT 4.42, CO2 OF 13, AND WITH 3+ GLUCOSE AND KETONES IN URINE Departure Communication (Admissions) [id number]--SPOKE WITH DR. SMYTH, HOSPITALIST FOR [facility]. ACCEPTS PT FOR ADMIT TO ICU. WILL CONSULT E-ICU FOR CO-MANAGEMENT. Impression Primary Impression: DKA (diabetic ketoacidosis) Additional Impressions: Type 1 diabetes mellitus 15 weeks gestation of Hyponatremia Disposition: ADMITTED INPATIENT Condition: Stable Admissions Decision to Admit Reason: Admit from ER (General) Decision to Admit/Date: Aug 27, 2022 Time/Decision to Admit Time: 22:55 Departure-Patient Inst. Referrals: COLT LAMBERT DO (PCP/Family) Primary Care Physician LADONNA RANGEL DO Aug 27, 2022 22:32
[2022-08-27 22:39] LABS: BILIRUBIN,URINE NEGATIVE (NEGATIVE); CLARITY,URINE CLEAR; COLOR,URINE YELLOW; GLUCOSE, URINE (UA) 3+ (NEGATIVE); KETONES,URINE 3+ (NEGATIVE); LEUKOCYTE ESTERASE ,URINE NEGATIVE (NEGATIVE); NITRITE,URINE NEGATIVE (NEGATIVE); PH,URINE 5.5 (5-9); PROTEIN,URINE NEGATIVE (NEGATIVE)
[2022-08-27 22:46] LABS: BACTERIA,URINE TRACE /HPF; SQUAMOUS EPITHELIAL CELL,UR RARE /HPF
[2022-08-27 22:50] LABS: AMPHETAMINE SCREEN, URINE NEGATIVE (NEGATIVE); BARBITURATE SCREEN URINE NEGATIVE (NEGATIVE); BENZODIAZEPINES SCREEN URINE NEGATIVE (NEGATIVE); CANNABINOID SCREEN, URINE NEGATIVE (NEGATIVE); COCAINE SCREEN URINE NEGATIVE (NEGATIVE); METHADONE STAT NEGATIVE (NEGATIVE); OPIATE SCREEN URINE NEGATIVE (NEGATIVE); OXYCODONE STAT NEGATIVE (NEGATIVE); PROPOXYPHENE STAT NEGATIVE (NEGATIVE); TRICYCLIC ANTIDEPRESSANTS SCRE NEGATIVE (NEGATIVE)
[2022-08-27 23:00] LABS: BASOPHILS % (AUTO) 0 % (0-10); EOSINOPHILS # (AUTO) 0.1 10^3/uL (0.0-0.3); EOSINOPHILS % (AUTO) 1 % (0-10); HEMATOCRIT 38 % (35-52); HEMOGLOBIN 12.2 g/dL (11.5-16.0); LYMPHOCYTES # (AUTO) 1.8 10^3/uL (1.0-4.0); LYMPHOCYTES % (AUTO) 18 % (12-44); MEAN CORPUSCULAR HEMOGLOBIN 25 pg (25-34); MEAN CORPUSCULAR HGB CONC 32 g/dL (32-36); MEAN CORPUSCULAR VOLUME 78 fL (80-99); MEAN PLATELET VOLUME 11.5 fL (9.0-12.2); MONOCYTES # (AUTO) 0.5 10^3/uL (0.0-1.0); MONOCYTES % (AUTO) 5 % (0-12); NEUTROPHILS # (AUTO) 7.5 10^3/uL (1.8-7.8); NEUTROPHILS % (AUTO) 76 % (42-75); PLATELET COUNT 306 10^3/uL (130-400)
[2022-08-27] MEDS ORDERED: NS IV 1000 ML 1,000 ML IV SCH ×2 (23:00→23:30)
[2022-08-27 23:10] LABS: ALBUMIN 3.7 GM/DL (3.2-4.5)
[2022-08-27 23:11] LABS: POTASSIUM 4.6 MMOL/L (3.6-5.0)
[2022-08-27 23:12] LABS: CALCIUM 9.3 MG/DL (8.5-10.1)
[2022-08-27 23:13] LABS: TOTAL PROTEIN 6.8 GM/DL (6.4-8.2)
[2022-08-27 23:15] LABS: BILIRUBIN,TOTAL 0.4 MG/DL (0.1-1.0)
[2022-08-27 23:17] LABS: CREATININE SERUM 1.08 MG/DL (0.60-1.30)
[2022-08-27 23:19] LABS: MAGNESIUM 1.7 MG/DL (1.6-2.4)
[2022-08-27] MEDS ORDERED: inSUlin (REGULAR) HUMAN 1 UNIT/0.01 ML (CHARGE PER UNIT) IV ONE (23:30)
[2022-08-28] MEDS ORDERED: METOCLOPRAMIDE INJ 10 MG/2 ML (REGLAN) IVP ONE
[2022-08-28] MEDS ORDERED: NS IV 1000 ML 1,000 ML IV SCH (00:15)
[2022-08-28] MEDS ORDERED: METOCLOPRAMIDE INJ 10 MG/2 ML (REGLAN) IV PRN (00:15)
--- NOTE | 2022-08-28 00:48 | Tele-ICU Progress Note ---
Progress Note 22 y/o woman with Hx of DM1 since age 12.and multiple admissions for DKA. Now with 15 wks gestation. Reviewed chart and labs 1. DKA with hx of DM1 2. 15 wk gestation On DKA protocol. Needs OB consult . D/W the bedside nurse , no request for any orders at this time. Interventions Minor-Other: DKA and Focused Exam Lactate Level 08/27/22 22:47: Lactic Acid Level 1.16 Height, Weight, BMI Height: 5'9.00" Weight: 255lbs. 0oz. 115.966795ps; 32.00 BMI Method:Stated Lactic Acid Level Laboratory Tests Test 08/27/22 22:47 Lactic Acid Level 1.16 MMOL/L (0.50-2.00) ASIF CONN MD Aug 28, 2022 00:48
[2022-08-28 01:10] LABS: POTASSIUM 2.9 MMOL/L (3.6-5.0)
[2022-08-28 01:11] LABS: CALCIUM 6.9 MG/DL (8.5-10.1)
[2022-08-28 01:16] LABS: CREATININE SERUM 0.73 MG/DL (0.60-1.30)
[2022-08-28] MEDS: ACETAMINOPHEN 500 MG TAB (TYLENOL) PO PRN ×3 (02:40→18:29)
[2022-08-28] MEDS: POTASSIUM CL 10MEQ/50ML IVPB 50 ML IV SCH ×6 (02:41→21:31)
[2022-08-28 03:16] LABS: BASOPHILS % (AUTO) 0 % (0-10); EOSINOPHILS % (AUTO) 0 % (0-10); HEMATOCRIT 31 % (35-52); HEMOGLOBIN 10.2 g/dL (11.5-16.0); LYMPHOCYTES # (AUTO) 1.5 10^3/uL (1.0-4.0); LYMPHOCYTES % (AUTO) 15 % (12-44); MEAN CORPUSCULAR HEMOGLOBIN 26 pg (25-34); MEAN CORPUSCULAR HGB CONC 33 g/dL (32-36); MEAN CORPUSCULAR VOLUME 78 fL (80-99); MEAN PLATELET VOLUME 11.1 fL (9.0-12.2); MONOCYTES # (AUTO) 0.5 10^3/uL (0.0-1.0); MONOCYTES % (AUTO) 5 % (0-12); NEUTROPHILS # (AUTO) 7.8 10^3/uL (1.8-7.8); NEUTROPHILS % (AUTO) 79 % (42-75); PLATELET COUNT 274 10^3/uL (130-400); WHITE BLOOD COUNT 9.9 10^3/uL (4.3-11.0)
[2022-08-28 03:27] LABS: POTASSIUM 3.9 MMOL/L (3.6-5.0)
[2022-08-28 03:28] LABS: CALCIUM 8.2 MG/DL (8.5-10.1)
[2022-08-28 03:30] LABS: TOTAL PROTEIN 5.5 GM/DL (6.4-8.2)
[2022-08-28 03:31] LABS: BILIRUBIN,TOTAL 0.4 MG/DL (0.1-1.0)
[2022-08-28 03:33] LABS: CREATININE SERUM 0.76 MG/DL (0.60-1.30)
[2022-08-28 03:36] LABS: MAGNESIUM 1.5 MG/DL (1.6-2.4)
[2022-08-28] MEDS: 1/2 NS IV SOLUTION 1,000 ML IV SCH ×6 (03:39→20:15)
[2022-08-28] MEDS: D5 1/2 NS 1000 ML IV SOLUTION 1,000 ML IV SCH ×5 (04:25→23:12)
[2022-08-28] MEDS: MAGNESIUM 1 GM/100 ML IVPB 100 ML IV SCH ×2 (06:51→08:42)
[2022-08-28 12:33] LABS: CREATININE SERUM 0.65 MG/DL (0.60-1.30); MAGNESIUM 1.9 MG/DL (1.6-2.4); POTASSIUM 3.8 MMOL/L (3.6-5.0)
--- NOTE | 2022-08-28 14:32 | History & Physical ---
HPI History of Present Illness: 22 yo F with known type 1 DM on pump. She states that she was here at the hospital with her boyfriend and her pump and she was unable to get it charged. She had not been checking her sugars but by the evening time she then went home to charge her pump and her sugars were in the 400s and she was not feeling good so she came back to the ER. States that she has been nauseous but denies any vomiting and states that she had some abdominal pain but it is better. She is still having generalized vague pain. She is 15 weeks . Denies any vaginal bleeding or loss of fluid. She follows in [place] at [facility] for her OB care. Source: patient Exam Limitations: no limitations Date seen by provider: Aug 28, 2022 Time Seen by Provider: 08:45 Attending Physician Carlos Lyn DO PCP Admitting Physician: Patito Diamond DO Attending Physician: Jose Esposito MD Consult Date of Admission Aug 27, 2022 at 22:53 Home Medications Home Medications Reviewed patient Home Medication Reconciliation performed by pharmacy medication reconciliations instructional media services technician and/or nursing. Patients Allergies have been reviewed. Allergies Coded Allergies: bismuth subsalicylate (Verified Allergy, Unknown, 10/27/21) TIS-[id number] Hx Patient Social History Smoking Status: Never a Smoker 2nd Hand Smoke Exposure: No Recent Hopitalizations: Yes (DKA) Alcohol Use?: No Substance type: Marijuana Have you traveled recently?: No Immunizations Up To Date Tetanus Booster (TDap): Less than 5yrs Influenza Vaccine Up-to-Date: Yes; Up-to-Date First/Initial COVID19 Vaccinat: APR 2021 Second COVID19 Vaccination [place]: MAY 2021 Third COVID19 Vaccination Date: APR 2021 COVID19 Vaccine International Guest Coordinator: PFIZER Past Medical History PMHx: Type I DM Depression SurgHx: Denies Family Medical History Significant Family History: No Pertinent Family Hx Other Significan Family Hx: MULTITUDE OF VISITS, MANY FOR DKA/DIABETES RELATED ISSUES ALSO MULTIPLE VISITS FOR CHRONIC NAUSEA/VOMITING AND ABDOMINAL PAIN RELATED TO MARIJANA USE/CANNIBIS HYPEREMESIS. Review of Systems (CHC) Constitutional: No chills, No fever; malaise EENTM: no symptoms reported Respiratory: no symptoms reported; No cough, No dyspnea on exertion Cardiovascular: no symptoms reported; No chest pain, No edema Gastrointestinal: abdominal pain; No constipation, No diarrhea; loss of appetite, nausea; No vomiting Genitourinary: No dysuria; frequency; No hematuria : Yes Musculoskeletal: no symptoms reported Skin: no symptoms reported Psychiatric/Neurological: No Symptoms Reported Reviewed Test Results Reviewed Test Results Lab Laboratory Tests Test 08/27/22 22:30 08/27/22 22:31 08/27/22 22:47 08/28/22 00:12 Range/Units Influenza Type A (RT-PCR) Not Detected Not Detecte Influenza Type B (RT-PCR) Not Detected Not Detecte SARS-CoV-2 RNA (RT-PCR) Not Detected Not Detecte Urine Color YELLOW Urine Clarity CLEAR Urine pH 5.5 5-9 Urine Specific [place] 1.010 L 1.016-1.022 Urine Protein NEGATIVE NEGATIVE Urine Glucose (UA) 3+ H NEGATIVE Urine Ketones 3+ H NEGATIVE Urine Nitrite NEGATIVE NEGATIVE Urine Bilirubin NEGATIVE NEGATIVE Urine Urobilinogen 0.2 < = 1.0 MG/DL Urine Leukocyte Esterase NEGATIVE NEGATIVE Urine RBC (Auto) NEGATIVE NEGATIVE Urine RBC NONE /HPF Urine WBC NONE /HPF Urine Squamous Epithelial Cells RARE /HPF Urine Crystals NONE /LPF Urine Bacteria TRACE /HPF Urine Casts NONE /LPF Urine Mucus NEGATIVE /LPF Urine Culture Indicated NO Urine Opiates Screen NEGATIVE NEGATIVE Urine Oxycodone Screen NEGATIVE NEGATIVE Urine Methadone Screen NEGATIVE NEGATIVE Urine Propoxyphene Screen NEGATIVE NEGATIVE Urine Barbiturates Screen NEGATIVE NEGATIVE Ur Tricyclic Antidepressants Screen NEGATIVE NEGATIVE Urine Phencyclidine Screen NEGATIVE NEGATIVE Urine Amphetamines Screen NEGATIVE NEGATIVE Urine Methamphetamines Screen NEGATIVE NEGATIVE Urine Benzodiazepines Screen NEGATIVE NEGATIVE Urine Cocaine Screen NEGATIVE NEGATIVE Urine Cannabinoids Screen NEGATIVE NEGATIVE White Blood Count 10.0 4.3-11.0 10^3/uL Red Blood Count 4.85 3.80-5.11 10^6/uL Hemoglobin 12.2 11.5-16.0 g/dL Hematocrit 38 35-52 % Mean Corpuscular Volume 78 L 80-99 fL Mean Corpuscular Hemoglobin 25 25-34 pg Mean Corpuscular Hemoglobin Concent 32 32-36 g/dL Red Cell Distribution Width 14.2 10.0-14.5 % Platelet Count 306 130-400 10^3/uL Mean Platelet Volume 11.5 9.0-12.2 fL Immature Granulocyte % (Auto) 1 % Neutrophils (%) (Auto) 76 H 42-75 % Lymphocytes (%) (Auto) 18 12-44 % Monocytes (%) (Auto) 5 0-12 % Eosinophils (%) (Auto) 1 0-10 % Basophils (%) (Auto) 0 0-10 % Neutrophils # (Auto) 7.5 1.8-7.8 10^3/uL Lymphocytes # (Auto) 1.8 1.0-4.0 10^3/uL Monocytes # (Auto) 0.5 0.0-1.0 10^3/uL Eosinophils # (Auto) 0.1 0.0-0.3 10^3/uL Basophils # (Auto) 0.0 0.0-0.1 10^3/uL Immature Granulocyte # (Auto) 0.1 0.0-0.1 10^3/uL Sodium Level 128 L 135-145 MMOL/L Potassium Level 4.6 3.6-5.0 MMOL/L Chloride Level 98 98-107 MMOL/L Carbon Dioxide Level 13 L 21-32 MMOL/L Anion Gap 17 H 5-14 MMOL/L Blood Urea Nitrogen 11 7-18 MG/DL Creatinine 1.08 0.60-1.30 MG/DL Estimat Glomerular Filtration Rate 75 BUN/Creatinine Ratio 10 Glucose Level 752 *H 70-105 MG/DL Lactic Acid Level 1.16 0.50-2.00 MMOL/L Calcium Level 9.3 8.5-10.1 MG/DL Corrected Calcium 9.5 8.5-10.1 MG/DL Magnesium Level 1.7 1.6-2.4 MG/DL Total Bilirubin 0.4 0.1-1.0 MG/DL Aspartate Amino Transf (AST/SGOT) 12 5-34 U/L Alanine Aminotransferase (ALT/SGPT) 14 0-55 U/L Alkaline Phosphatase 89 40-136 U/L Total Protein 6.8 6.4-8.2 GM/DL Albumin 3.7 3.2-4.5 GM/DL Amylase Level 56 25-125 U/L Lipase 31 8-78 U/L Beta-Hydroxybutyrate (Chem panel) 4.42 H 0.00-0.27 MMOL/L Procalcitonin 0.10 H <0.10 NG/ML Glucometer 567 *H 70-110 MG/DL Test 08/28/22 00:52 08/28/22 01:15 08/28/22 02:30 08/28/22 03:00 Range/Units Sodium Level 135 133 L 135-145 MMOL/L Potassium Level 2.9 L 3.9 3.6-5.0 MMOL/L Chloride Level 113 #H 109 H 98-107 MMOL/L Carbon Dioxide Level 9 *L 12 L 21-32 MMOL/L Anion Gap 13 12 5-14 MMOL/L Blood Urea Nitrogen 10 10 7-18 MG/DL Creatinine 0.73 0.76 0.60-1.30 MG/DL Estimat Glomerular Filtration Rate 121 115 BUN/Creatinine Ratio 14 13 Glucose Level 435 *H 363 H 70-105 MG/DL Calcium Level 6.9 L 8.2 L 8.5-10.1 MG/DL Glucometer 373 H 360 H 294 H 70-110 MG/DL White Blood Count 9.9 4.3-11.0 10^3/uL Red Blood Count 4.00 3.80-5.11 10^6/uL Hemoglobin 10.2 L 11.5-16.0 g/dL Hematocrit 31 L 35-52 % Mean Corpuscular Volume 78 L 80-99 fL Mean Corpuscular Hemoglobin 26 25-34 pg Mean Corpuscular Hemoglobin Concent 33 32-36 g/dL Red Cell Distribution Width 13.9 10.0-14.5 % Platelet Count 274 130-400 10^3/uL Mean Platelet Volume 11.1 9.0-12.2 fL Immature Granulocyte % (Auto) 1 % Neutrophils (%) (Auto) 79 H 42-75 % Lymphocytes (%) (Auto) 15 12-44 % Monocytes (%) (Auto) 5 0-12 % Eosinophils (%) (Auto) 0 0-10 % Basophils (%) (Auto) 0 0-10 % Neutrophils # (Auto) 7.8 1.8-7.8 10^3/uL Lymphocytes # (Auto) 1.5 1.0-4.0 10^3/uL Monocytes # (Auto) 0.5 0.0-1.0 10^3/uL Eosinophils # (Auto) 0.0 0.0-0.3 10^3/uL Basophils # (Auto) 0.0 0.0-0.1 10^3/uL Immature Granulocyte # (Auto) 0.1 0.0-0.1 10^3/uL Corrected Calcium 9.0 8.5-10.1 MG/DL Phosphorus Level 2.0 L 2.3-4.7 MG/DL Magnesium Level 1.5 L 1.6-2.4 MG/DL Total Bilirubin 0.4 0.1-1.0 MG/DL Aspartate Amino Transf (AST/SGOT) 11 5-34 U/L Alanine Aminotransferase (ALT/SGPT) 12 0-55 U/L Alkaline Phosphatase 67 40-136 U/L Total Protein 5.5 L 6.4-8.2 GM/DL Albumin 3.0 L 3.2-4.5 GM/DL Beta-Hydroxybutyrate (Chem panel) 3.36 H 0.00-0.27 MMOL/L Test 08/28/22 04:21 08/28/22 05:15 08/28/22 06:11 08/28/22 07:10 Range/Units Glucometer 224 H 226 H 202 H 154 H 70-110 MG/DL Test 08/28/22 08:02 08/28/22 08:57 08/28/22 09:56 08/28/22 11:10 Range/Units Glucometer 158 H 133 H 127 H 133 H 70-110 MG/DL Test 08/28/22 12:12 08/28/22 13:00 08/28/22 14:06 Range/Units Sodium Level 133 L 135-145 MMOL/L Potassium Level 3.8 3.6-5.0 MMOL/L Chloride Level 107 98-107 MMOL/L Carbon Dioxide Level 19 L 21-32 MMOL/L Anion Gap 7 5-14 MMOL/L Blood Urea Nitrogen 6 L 7-18 MG/DL Creatinine 0.65 0.60-1.30 MG/DL Estimat Glomerular Filtration Rate 129 BUN/Creatinine Ratio 9 Glucose Level 160 H 70-105 MG/DL Calcium Level 8.0 L 8.5-10.1 MG/DL Phosphorus Level 3.0 2.3-4.7 MG/DL Magnesium Level 1.9 1.6-2.4 MG/DL Glucometer 233 H 250 H 70-110 MG/DL Physical Exam-(CHC) Physical Exam Vital Signs VS - Last 72 Hours, by Label 08/27/22 08/28/22 08/28/22 08/28/22 22:18 00:02 00:12 00:20 Temp 36.4 36.6 Pulse 92 109 Resp 18 18 B/P (MAP) 131/90 (104) 113/67 Pulse Ox 100 98 99 O2 Delivery Room Air Room Air Room Air 08/28/22 08/28/22 08/28/22 08/28/22 00:34 00:57 01:00 01:00 Pulse 101 98 95 95 Resp 21 19 20 B/P (MAP) 147/82 (103) 125/76 (92) 117/69 (85) Pulse Ox 100 100 100 O2 Delivery Room Air Room Air Room Air 08/28/22 08/28/22 08/28/22 08/28/22 01:15 01:30 02:00 03:00 Pulse 105 93 99 92 Resp B/P (MAP) 110/71 (84) 120/62 (81) 115/64 (81) 111/61 (78) Pulse Ox 98 99 98 97 O2 Delivery Room Air Room Air Room Air Room Air 08/28/22 08/28/22 08/28/22 08/28/22 04:00 04:00 04:31 05:00 Temp 36.7 Pulse 95 90 Resp 18 18 B/P (MAP) 101/62 (75) 110/60 (77) Pulse Ox 98 97 97 O2 Delivery Room Air Room Air Room Air 08/28/22 08/28/22 08/28/22 08/28/22 06:00 07:00 07:35 07:45 Temp 36.2 Pulse 90 85 82 Resp 16 13 B/P (MAP) 103/62 (76) 102/67 (79) Pulse Ox 98 97 O2 Delivery Room Air Room Air 08/28/22 08/28/22 08/28/22 08/28/22 08:00 08:00 09:00 10:00 Pulse 80 87 87 Resp 16 17 16 B/P (MAP) 120/97 (105) 124/71 (88) 134/80 (98) Pulse Ox 99 99 99 100 O2 Delivery Room Air Room Air Room Air Room Air 08/28/22 08/28/22 08/28/22 08/28/22 11:00 12:00 12:00 12:58 Temp 36.6 Pulse 94 91 Resp 17 B/P (MAP) 130/81 (97) Pulse Ox 100 99 O2 Delivery Room Air Room Air Capillary Refill : Less Than 3 Seconds General Appearance: WD/WN, no apparent distress HEENT: PERRL/EOMI Neck: non-tender, full range of motion Respiratory: chest non-tender, lungs clear, no respiratory distress, no accessory muscle use Cardiovascular: normal peripheral pulses, regular rate, rhythm, no murmur Gastrointestinal: normal bowel sounds, non tender, soft, other (Fundus palpated between pubis and umbilicus, non tender to palpation) Back: no CVA tenderness, no vertebral tenderness Extremities: normal range of motion, no pedal edema, no calf tenderness, normal capillary refill Neurologic/Psychiatric: 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 tested, alert, oriented x 3 Skin: normal color, warm/dry Lymphatic: no adenopathy Assessment/Plan Assessment/Plan Admission Status: Inpatient Order (span 2 midnights) Reason for Inpatient Admission: Requiring insulin drip and hrly monitoring (1) DKA (diabetic ketoacidosis) Status: Resolved Assessment & Plan: - Insulin gtts, gap is closing, A1c pending, continue admission in ICU today Qualifiers: Qualified Codes: E10.10 - Type 1 diabetes mellitus with ketoacidosis without coma (2) Type 1 diabetes mellitus Status: Chronic (3) Hyponatremia Status: Acute Assessment & Plan: - Improving with hydration and insulin gtts (4) 15 weeks gestation of Status: Acute Assessment & Plan: - Following with high school home economics teacher in [facility] JOSE ESPOSITO MD Aug 28, 2022 14:32
[2022-08-28 18:02] LABS: POTASSIUM 3.8 MMOL/L (3.6-5.0)
[2022-08-28 18:07] LABS: CREATININE SERUM 0.69 MG/DL (0.60-1.30)
[2022-08-29] MEDS: 1/2 NS IV SOLUTION 1,000 ML IV SCH ×4 (00:15→12:02)
[2022-08-29] MEDS: POTASSIUM CL 10MEQ/50ML IVPB 50 ML IV SCH ×2 (01:34→05:39)
[2022-08-29] MEDS: ACETAMINOPHEN 500 MG TAB (TYLENOL) PO PRN (02:18)
[2022-08-29] MEDS: D5 1/2 NS 1000 ML IV SOLUTION 1,000 ML IV SCH ×2 (03:15→07:37)
[2022-08-29 03:56] LABS: BASOPHILS % (AUTO) 0 % (0-10); EOSINOPHILS # (AUTO) 0.1 10^3/uL (0.0-0.3); EOSINOPHILS % (AUTO) 2 % (0-10); HEMATOCRIT 31 % (35-52); HEMOGLOBIN 10.4 g/dL (11.5-16.0); LYMPHOCYTES % (AUTO) 40 % (12-44); MEAN CORPUSCULAR HEMOGLOBIN 26 pg (25-34); MEAN CORPUSCULAR HGB CONC 33 g/dL (32-36); MEAN CORPUSCULAR VOLUME 78 fL (80-99); MEAN PLATELET VOLUME 10.3 fL (9.0-12.2); MONOCYTES # (AUTO) 0.5 10^3/uL (0.0-1.0); MONOCYTES % (AUTO) 7 % (0-12); NEUTROPHILS # (AUTO) 3.8 10^3/uL (1.8-7.8); NEUTROPHILS % (AUTO) 51 % (42-75); PLATELET COUNT 92 10^3/uL (130-400); WHITE BLOOD COUNT 7.5 10^3/uL (4.3-11.0)
[2022-08-29 04:21] LABS: ALBUMIN 2.7 GM/DL (3.2-4.5)
[2022-08-29 04:22] LABS: CALCIUM 7.9 MG/DL (8.5-10.1)
[2022-08-29 04:23] LABS: TOTAL PROTEIN 5.1 GM/DL (6.4-8.2)
[2022-08-29 04:25] LABS: BILIRUBIN,TOTAL 0.1 MG/DL (0.1-1.0)
[2022-08-29 04:26] LABS: PHOSPHORUS 3.7 MG/DL (2.3-4.7)
[2022-08-29 04:27] LABS: CREATININE SERUM 0.61 MG/DL (0.60-1.30)
[2022-08-29 04:30] LABS: MAGNESIUM 1.5 MG/DL (1.6-2.4)
[2022-08-29 04:48] LABS: SMEAR SCAN COMMENT YES
[2022-08-29] MEDS: MAGNESIUM 1 GM/100 ML IVPB 100 ML IV SCH ×3 (06:00→07:37)
[2022-08-29] MEDS: HYDROcodone/APAP 5 MG/325 MG (LORTAB) TAB PO PRN ×2 (10:28→18:36)
[2022-08-29] MEDS: inSUlin ASPART (NovoLOG) 1 UNIT/0.01 ML (CHARGE PER UNIT) SC SCH ×3 (12:02→22:10)
--- NOTE | 2022-08-29 14:08 | Progress Note ---
Subjective Subjective/Events-last exam Patient states that she is wanting to go home. She is still on insulin drip. Nurses report she is asking for many snacks and seems to be eating all the time. Blood sugars are labile. Denies any N/V Review of Systems Pulmonary: No Dyspnea, No Cough Cardiovascular: No: Chest Pain, Palpitations, Edema Gastrointestinal: Abdominal Pain; No: Nausea, Vomiting, Diarrhea, Constipation complains of generalized pain Focused Exam Lactate Level 08/27/22 22:47: Lactic Acid Level 1.16 Objective Exam Last Set of Vital Signs Vital Signs Date Time Temp Pulse Resp B/P (MAP) Pulse Ox O2 Delivery O2 Flow Rate FiO2 08/29/22 13:09 76 08/29/22 13:00 20 117/67 (84) 99 Room Air 08/29/22 11:52 36.4 Capillary Refill : Less Than 3 Seconds I&O Intake and Output 08/29/22 00:00 Intake Total 9394 ml Balance 9394 ml Intake Oral 2620 ml IV Total 6774 ml # Voids 10 Daily Weight Change No General: Alert, Oriented X3, No Acute Distress Lungs: Clear to Auscultation, Normal Air Movement Heart: Regular Rate, No Murmurs Abdomen: Normal Bowel Sounds, Soft, No Tenderness, No Masses Extremities: No Edema, No Tenderness/Swelling Neuro: Normal Speech Results/Procedures Lab Laboratory Tests 08/28/22 15:11: Glucometer 224H 08/28/22 15:54: Glucometer 233H 08/28/22 17:25: Sodium Level 131L, Potassium Level 3.8, Chloride Level 106, Carbon Dioxide Level 17L, Anion Gap 8, Blood Urea Nitrogen 6L, Creatinine 0.69, Estimat Glomerular Filtration Rate 127, BUN/Creatinine Ratio 9, Glucose Level 271H, Calcium Level 8.0L 08/28/22 18:27: Glucometer 265H 08/28/22 18:54: Glucometer 257H 08/28/22 19:58: Glucometer 120H 08/28/22 21:07: Glucometer 110 08/28/22 22:13: Glucometer 131H 08/28/22 23:07: Glucometer 146H 08/29/22 00:15: Glucometer 116H 08/29/22 01:14: Glucometer 130H 08/29/22 02:15: Glucometer 82 08/29/22 03:15: Glucometer 132H 08/29/22 03:47: White Blood Count 7.5, Red Blood Count 4.04, Hemoglobin 10.4L, Hematocrit 31L, Mean Corpuscular Volume 78L, Mean Corpuscular Hemoglobin 26, Mean Corpuscular Hemoglobin Concent 33, Red Cell Distribution Width 14.4, Platelet Count 92L, Mean Platelet Volume 10.3, Immature Granulocyte % (Auto) 1, Neutrophils (%) (Auto) 51, Lymphocytes (%) (Auto) 40, Monocytes (%) (Auto) 7, Eosinophils (%) (Auto) 2, Basophils (%) (Auto) 0, Neutrophils # (Auto) 3.8, Lymphocytes # (Auto) 3.0, Monocytes # (Auto) 0.5, Eosinophils # (Auto) 0.1, Basophils # (Auto) 0.0, Immature Granulocyte # (Auto) 0.0, Sodium Level 134L, Potassium Level 4.0, Chloride Level 111H, Carbon Dioxide Level 16L, Anion Gap 7, Blood Urea Nitrogen 7, Creatinine 0.61, Estimat Glomerular Filtration Rate 131, BUN/Creatinine Ratio 11, Glucose Level 180H, Calcium Level 7.9L, Corrected Calcium 8.9, Phosphorus Level 3.7, Magnesium Level 1.5L, Total Bilirubin 0.1, Aspartate Amino Transf (AST/SGOT) 10, Alanine Aminotransferase (ALT/SGPT) 9, Alkaline Phosphatase 60, Total Protein 5.1L, Albumin 2.7L, Beta-Hydroxybutyrate (Chem panel) 0.35H, Smear Scan YES 08/29/22 04:20: Glucometer 134H 08/29/22 05:10: Glucometer 95 08/29/22 06:02: Glucometer 129H 08/29/22 07:24: Glucometer 132H 08/29/22 08:04: Glucometer 136H 08/29/22 09:24: Glucometer 199H 08/29/22 10:08: Glucometer 249H 08/29/22 11:12: Glucometer 250H 08/29/22 11:55: Glucometer 285H 08/29/22 13:20: Glucometer 341H 08/29/22 13:53: 08/29/22 13:59: Glucometer 290H Assessment/Plan Assessment/Plan (1) DKA (diabetic ketoacidosis) Status: Resolved Assessment & Plan: - Insulin gtts, gap is closing, A1c pending, continue admission in ICU today 08/29: Will transition back to subcutaneous insulin, then transfer to med/surg Qualifiers: Qualified Codes: E10.10 - Type 1 diabetes mellitus with ketoacidosis without coma (2) Type 1 diabetes mellitus Status: Chronic (3) Hyponatremia Status: Resolved Assessment & Plan: - Improving with hydration and insulin gtts (4) 15 weeks gestation of Status: Acute Assessment & Plan: - Following with high school science tutor in [place] at [facility] JOSE OKEEFE MD Aug 29, 2022 14:08
[2022-08-29 14:24] LABS: CALCIUM 8.4 MG/DL (8.5-10.1); CREATININE SERUM 0.81 MG/DL (0.60-1.30); POTASSIUM 4.2 MMOL/L (3.6-5.0)
[2022-08-29 15:45] VITALS: BP 136/92
[2022-08-29 19:13] VITALS: BP 121/69
[2022-08-29 23:32] VITALS: BP 139/86
[2022-08-30 03:42] VITALS: BP 139/87
[2022-08-30 05:39] LABS: BASOPHILS % (AUTO) 0 % (0-10); EOSINOPHILS # (AUTO) 0.1 10^3/uL (0.0-0.3); EOSINOPHILS % (AUTO) 1 % (0-10); HEMATOCRIT 31 % (35-52); HEMOGLOBIN 10.5 g/dL (11.5-16.0); LYMPHOCYTES % (AUTO) 40 % (12-44); MEAN CORPUSCULAR HEMOGLOBIN 26 pg (25-34); MEAN CORPUSCULAR HGB CONC 34 g/dL (32-36); MEAN CORPUSCULAR VOLUME 77 fL (80-99); MEAN PLATELET VOLUME 10.4 fL (9.0-12.2); MONOCYTES # (AUTO) 0.7 10^3/uL (0.0-1.0); MONOCYTES % (AUTO) 9 % (0-12); NEUTROPHILS # (AUTO) 3.7 10^3/uL (1.8-7.8); NEUTROPHILS % (AUTO) 49 % (42-75); PLATELET COUNT 320 10^3/uL (130-400); WHITE BLOOD COUNT 7.4 10^3/uL (4.3-11.0)
[2022-08-30 05:43] LABS: POTASSIUM 3.8 MMOL/L (3.6-5.0)
[2022-08-30 05:44] LABS: CALCIUM 8.4 MG/DL (8.5-10.1)
[2022-08-30 05:45] LABS: TOTAL PROTEIN 5.5 GM/DL (6.4-8.2)
[2022-08-30] MEDS: inSUlin ASPART (NovoLOG) 1 UNIT/0.01 ML (CHARGE PER UNIT) SC SCH (05:46)
[2022-08-30 05:47] LABS: BILIRUBIN,TOTAL 0.1 MG/DL (0.1-1.0)
[2022-08-30 05:48] LABS: PHOSPHORUS 4.5 MG/DL (2.3-4.7)
[2022-08-30 05:49] LABS: CREATININE SERUM 0.55 MG/DL (0.60-1.30)
[2022-08-30 05:52] LABS: MAGNESIUM 1.7 MG/DL (1.6-2.4)
[2022-08-30] MEDS: MAGNESIUM 1 GM/100 ML IVPB 100 ML IV SCH ×3 (06:02→07:38)
[2022-08-30 08:04] VITALS: BP 153/60
[2022-08-30] MEDS: HYDROcodone/APAP 5 MG/325 MG (LORTAB) TAB PO PRN (08:59)
--- NOTE | 2022-08-30 09:30 | Discharge Summary ---
Diagnosis/Chief Complaint Date of Admission Aug 27, 2022 at 22:53 Date of Discharge 08/30/22 Admission Diagnosis Admission Diagnosis See problem list Discharge Diagnosis See below Problems/Diagnosis: (1) DKA (diabetic ketoacidosis) Assessment & Plan: - Insulin gtts, gap is closing, A1c pending, continue admission in ICU today 08/29: Will transition back to subcutaneous insulin, then transfer to med/surg 08/30: A1c 9.4, poorly controlled type 1 DM, patient desires d/c today, replace home insulin pump Qualifiers: Qualified Codes: E10.10 - Type 1 diabetes mellitus with ketoacidosis without coma Status: Resolved Resolution Date/Time: 08/18/22 @ 14:55 (2) Type 1 diabetes mellitus Status: Chronic (3) Hyponatremia Assessment & Plan: - Improving with hydration and insulin gtts Status: Resolved Resolution Date/Time: 08/29/22 @ 14:08 (4) 15 weeks gestation of Assessment & Plan: - [facility] with [facility] 08/30: Appt with OB next week, discussed the importance of getting Endocrine appt rescheduled Status: Acute Chief Complaint/HPI Chief Complaint/HPI 22 yo F with known type 1 DM on pump. She states that she was here at the hospital with her boyfriend and her pump and she was unable to get it charged. She had not been checking her sugars but by the evening time she then went home to charge her pump and her sugars were in the 400s and she was not feeling good so she came back to the ER. States that she has been nauseous but denies any vomiting and states that she had some abdominal pain but it is better. She is still having generalized vague pain. She is 15 weeks . Denies any vaginal bleeding or loss of fluid. She follows in [place] at [facility] for her OB care. Discharge Summary-Simple/Stand Consultations Discharge Physical Examination Allergies: Coded Allergies: bismuth subsalicylate (Verified Allergy, Unknown, 08/29/22) Vitals & I&Os Vital Sign - Last 12Hours Date Time Temp Pulse Resp B/P (MAP) Pulse Ox O2 Delivery O2 Flow Rate FiO2 08/30/22 08:04 36.9 88 18 153/60 (91) 98 Room Air Intake and Output 08/30/22 00:00 Intake Total 1295 ml Balance 1295 ml General Appearance: Alert, Oriented X3, No Acute Distress Respiratory: Clear to Auscultation, Normal Air Movement Cardiovascular: Regular Rate, No Murmurs Abdominal: Normal Bowel Sounds, Soft, No Tenderness, No Masses Extremities: No Edema, No Tenderness/Swelling Neuro: Normal Speech Psych/Mental Status: Mental Status NL, Mood NL Hospital Course See final discharge diagnosis. Discussion & Recommendations 22 yo F well known to me with poorly controlled type I DM that presented in DKA after her pump ran out of battery. She was placed on insulin gtts and acidosis quickly resolved. She is 15 week and following with high risk in [place]. Patient was transitioned to subcutaneous insulin and doing well prior to discharge. Discharge Condition at discharge stable Instructions to patient/family Please see electronic discharge instructions given to patient. Discharge Medications Reviewed and agree with Discharge Medication list on patient's Discharge Instruction sheet JOSE OKEEFE MD Aug 30, 2022 09:30
--- NOTE | 2022-08-30 09:32 | Discharge Summary ---
Discharge [facility]-PSYCHIATRIC Reconcile Patient Problems Problems Reviewed?: Yes Discharge Medications New, Converted or Re-Newed RX: Transmitted to Pharmacy Continued Medications: Acetaminophen (Tylenol Extra Strength) 500 Mg Tablet 1000 MG PO Q8H PRN for PAIN-MILD (1-4), TAB Insulin Lispro (Insulin Lispro) 100 Unit/Ml Vial UNITS SC UD, UNITS USES VIA PUMP Vit W-Ca,Fe,FA(<1 mg) ( Formula) 28 Mg Iron-800 Mcg Tablet 1 EACH PO BID, TAB Patient Instructions Goal/Follow Up Appt: FFelipeu with OB on 09/07 Patient Instructions: - Keep close track of blood sugars Activity & Diet Discharge Diet: ADA Diet Activity as Tolerated: Yes JOSE OKEEFE MD Aug 30, 2022 09:32
[2022-08-30 10:41] VITALS: BP 153/60
== END 2022-08-30 10:45 | disposition home or self-care (01) | DRG 831 ==
LOC: EDUNIT# 22:03 → ER 22:04 → ICU 22:53 → 4TH 08-29 15:00
PROVIDERS: ADMIT Internal Medicine; ATTEND Family Medicine
DX: O24.012 Pre-existing type 1 diabetes mellitus, in pregnancy, second trimester (principal); E10.10 Type 1 diabetes mellitus with ketoacidosis without coma; O99.322 Drug use complicating pregnancy, second trimester; E87.1 Hypo-osmolality and hyponatremia; O99.282 Endocrine, nutritional and metabolic diseases complicating pregnancy, second trimester; O99.332 Smoking (tobacco) complicating pregnancy, second trimester; F17.290 Nicotine dependence, other tobacco product, uncomplicated; F12.90 Cannabis use, unspecified, uncomplicated; O99.342 Other mental disorders complicating pregnancy, second trimester; Z20.822 Contact with and (suspected) exposure to COVID-19; F41.9 Anxiety disorder, unspecified; F32.A Depression, unspecified; Z79.4 Long term (current) use of insulin; Z3A.15 15 weeks gestation of pregnancy
CPT/HCPCS: 36415; 80048; 80053; 80306; 81000; 82010; 82150; 82947; 83036; 83605; 83690; 83735; 84100; 84145; 85025; 87636; 93041

== ENCOUNTER 2022-12-03 15:35 | Outpatient (CLI) | payer BC, MEDICAID ==
[2022-12-03 15:50] VITALS: BP 132/70
--- NOTE | 2022-12-04 07:10 | OB Triage Report ---
Standard Progress Note Progress Notes/Assess & Plan Date Seen by a Provider: Dec 03, 2022 Time Seen by a Provider: 12:45 Expected Date of Delivery: Dec 04, 2022 Gestational Age in Weeks: 29 Gestational Age in Days: 2 LMP/VERNON Comment: As above. Approximate EGA based on Hx. Progress/Assessment & Plan Patient from out of [facility], DM patient at 29 weeks per history (no OB records) get OB care in [place], presents to L&D with DKA, accucheck 426, +FHTs normal range, cervix long and closed per RN. patient released from L&D and sent to ED for management of DKA, ED attending notified by me. Hospitalist and I both agree patient should go to higher level care facility for management. ED physician to coordinate transfer. Final Diagnosis Third Trimester DKA JENNIFER POTTER DO Dec 04, 2022 07:10
== END 2022-12-03 16:19 ==
LOC: WSo 15:35 → LDRP 15:36 → WSo 16:19
PROVIDERS: ATTEND Obstetrics & Gynecology
DX: O02.9 Abnormal product of conception, unspecified (principal); Z3A.29 29 weeks gestation of pregnancy
CPT/HCPCS: 82947; 99212

== ENCOUNTER 2022-12-03 16:28 | Emergency (ER) | payer BC, MEDICAID ==
[~2022-12-03] VITALS: Ht 175 cm; Wt 101.6 kg
--- NOTE | 2022-12-03 16:34 | ED General ---
General Stated Complaint: DKA|CONTRACTIONS Source of Information: Patient, Caregiver (Dr Garcia, OB RN) (JESUS LOPEZ DO) History of Present Illness Date Seen by Provider: Dec 03, 2022 Time Seen by Provider: 16:20 Initial Comments There was a delay in registration as the patient was brought from the OB department straight down to the emergency department room. I began to see her at 1620. Patient is a 22-year-old female who is 29 weeks . She came into the evaluated from an OB standpoint as she was having what she thought were contractions, described as cramping in her pelvic region and low back. No v aginal discharge or odor or bleeding. No recent fevers or chills and no complications with to date. The OB provider, Dr. Urbina, called me to inform me that the patient was cleared from an OB standpoint but he fears she may be in DKA. She is a known type I diabetic and is seen here frequently for complications related to this. She has an insulin pump and states while she was being evaluated from an OB perspective she ran out of insulin. She states she has been out of insulin for about an hour. Sugars prior to this were in the 200 range, slightly high but when she ran out of insulin they have now spiked into the 400s. She states she started vomiting when her sugars get higher. She denies any chest pain, abdominal pain, shortness of breath. No fevers or chills or other infectious symptoms. No painful or bloody urination. No changes in bowels. All other systems reviewed and negative except documented per HPI. Voice recognition software was used to help create this chart (JESUS LOPEZ DO) Allergies and Home Medications Allergies Coded Allergies: bismuth subsalicylate (Verified Allergy, Unknown, 08/29/22) Patient Home Medication List Home Medication List Reviewed: Yes (JESUS LOPEZ DO) Acetaminophen (Tylenol Extra Strength) 500 Mg Tablet, 1,000 MG PO Q8H PRN for PAIN-MILD (1-4), (Reported) Entered as Reported by: COLT BOURNE on 02/16/22 1100 Insulin Lispro (Insulin Lispro) 100 Unit/Ml Vial, UNITS SC UD, (Reported) Entered as Reported by: COLT BOURNE on 08/17/22 1223 Vit W-Ca,Fe,FA(<1 mg) ( Formula) 28 Mg Iron-800 Mcg Tablet, 1 EACH PO BID, (Reported) Entered as Reported by: COLT BOURNE on 08/22/22 1159 Review of Systems Review of Systems Constitutional: no symptoms reported (JESUS LOPEZ DO) Past Desssug-Jkemre-Uitepg Hx Patient Social History Tobacco Use?: No Use of E-Cig and/or Vaping dev: No Substance use?: No Alcohol Use?: No (JESUS LOPEZ DO) Immunizations Up To Date Tetanus Booster (TDap): Less than 5yrs PED Vaccines UTD: Yes First/Initial COVID19 Vaccinat: APR 2021 Second COVID19 Vaccination [place]: MAY 2021 Third COVID19 Vaccination Date: APR 2021 (JESUS LOPEZ DO) Seasonal Allergies Seasonal Allergies: No (JESUS LOPEZ DO) Past Medical History Surgery/Hospitalization HX: MULTIPLE HOSPITALIZATIONS FOR DKA Surgeries: No Respiratory: No Currently Using CPAP: No Currently Using BIPAP: No Cardiac: Yes (TACHYCARDIA) Palpitations Neurological: No Reproductive Disorders: No Female Reproductive Disorders: Denies Sexually Transmitted Disease: No HIV/AIDS: No Genitourinary: Yes Bladder Infection Gastrointestinal: Yes (CANNABIS HYPEREMESIS; CHRONIC 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 DX AGE 12) Diabetes, Insulin dep HEENT: No Loss of Vision: Denies Hearing Impairment: Denies Cancer: No Psychosocial: Yes Anxiety, Depression Integumentary: No Blood Disorders: No Adverse Reaction/Blood Tranf: No (JESUS LOPEZ DO) Family Medical History No Pertinent Family Hx MULTITUDE OF VISITS, MANY FOR DKA/DIABETES RELATED ISSUES ALSO MULTIPLE VISITS FOR CHRONIC NAUSEA/VOMITING AND ABDOMINAL PAIN RELATED TO MARIJANA USE/CANNIBIS HYPEREMESIS. (JESUS LOPEZ DO) Physical Exam Vital Signs Vital Signs - First Documented 12/03/22 16:56 Temp 36.6 Pulse 104 Resp 17 B/P (MAP) 148/62 (90) Pulse Ox 100 (JUAN CARLOSLADONNA Marcia DALAL) Vital Signs Capillary Refill : (JESUS LOPEZ DO) Height, Weight, BMI Height: 5'9.00" Weight: 255lbs. 0oz. [id number]; 33.19 BMI Method:Stated General Appearance: No Apparent Distress, WD/WN HEENT: Normal ENT Inspection, Pharynx Normal Neck: Full Range of Motion, Normal Inspection, Non Tender, Supple Respiratory: Chest Non Tender, Lungs Clear, Normal Breath Sounds, No Accessory Muscle Use, No Respiratory Distress Cardiovascular: Regular Rate, Rhythm, No Murmur, Normal Peripheral Pulses Gastrointestinal: Normal Bowel Sounds, No Organomegaly, No Pulsatile Mass, Non Tender, Soft, Other (Gravid abdomen) Back: Normal Inspection, No CVA Tenderness, No Vertebral Tenderness Extremity: Normal Capillary Refill, Normal Inspection, Normal Range of Motion, Non Tender, No Calf Tenderness Neurologic/Psychiatric: Alert, Oriented x3, No Motor/Sensory Deficits Skin: Normal Color, Warm/Dry (JESSICAJESUSZHENG Saavedra DO) Procedures/Interventions Date of ETT Placement: Feb 18, 2021 Time of ETT Placement: 1432 (JESSICAJESUS Quentin DALAL) Progress/Results/Core Measures Suspected Sepsis SIRS Temperature: Pulse: Respiratory Rate: Laboratory Tests 12/03/22 16:41: White Blood Count 15.1H Blood Pressure / Mean: Laboratory Tests 12/03/22 16:41: Creatinine 1.00, Platelet Count 311, Total Bilirubin 0.6 (JESSICA,JESUS Quentin DALAL) Results/Orders Lab Results Laboratory Tests Test 12/03/22 16:36 12/03/22 16:41 12/03/22 17:24 Range/Units Glucometer 443 *H 460 *H 70-110 MG/DL White Blood Count 15.1 H 4.3-11.0 10^3/uL Red Blood Count 5.22 H 3.80-5.11 10^6/uL Hemoglobin 13.0 11.5-16.0 g/dL Hematocrit 40 35-52 % Mean Corpuscular Volume 77 L 80-99 fL Mean Corpuscular Hemoglobin 25 25-34 pg Mean Corpuscular Hemoglobin Concent 33 32-36 g/dL Red Cell Distribution Width 13.5 10.0-14.5 % Platelet Count 311 130-400 10^3/uL Mean Platelet Volume 12.5 H 9.0-12.2 fL Immature Granulocyte % (Auto) 1 % Neutrophils (%) (Auto) 86 H 42-75 % Lymphocytes (%) (Auto) 9 L 12-44 % Monocytes (%) (Auto) 3 0-12 % Eosinophils (%) (Auto) 0 0-10 % Basophils (%) (Auto) 0 0-10 % Neutrophils # (Auto) 13.1 H 1.8-7.8 10^3/uL Lymphocytes # (Auto) 1.4 1.0-4.0 10^3/uL Monocytes # (Auto) 0.5 0.0-1.0 10^3/uL Eosinophils # (Auto) 0.0 0.0-0.3 10^3/uL Basophils # (Auto) 0.0 0.0-0.1 10^3/uL Immature Granulocyte # (Auto) 0.1 0.0-0.1 10^3/uL Neutrophils % (Manual) 88 % Lymphocytes % (Manual) 7 % Monocytes % (Manual) 2 % Eosinophils % (Manual) 0 % Basophils % (Manual) 0 % Band Neutrophils 3 % Microcytosis SLIGHT Urine Color YELLOW Urine Clarity CLEAR Urine pH 6.0 5-9 Urine Specific [place] 1.020 1.016-1.022 Urine Protein NEGATIVE NEGATIVE Urine Glucose (UA) 3+ H NEGATIVE Urine Ketones 3+ H NEGATIVE Urine Nitrite NEGATIVE NEGATIVE Urine Bilirubin NEGATIVE NEGATIVE Urine Urobilinogen 0.2 < = 1.0 MG/DL Urine Leukocyte Esterase NEGATIVE NEGATIVE Urine RBC (Auto) TRACE-I H NEGATIVE Urine RBC 0-2 /HPF Urine WBC 2-5 /HPF Urine Squamous Epithelial Cells 2-5 /HPF Urine Crystals NONE /LPF Urine Bacteria FEW H /HPF Urine Casts NONE /LPF Urine Mucus NEGATIVE /LPF Urine Culture Indicated YES Sodium Level 135 135-145 MMOL/L Potassium Level 4.4 3.6-5.0 MMOL/L Chloride Level 104 98-107 MMOL/L Carbon Dioxide Level 7 *L 21-32 MMOL/L Anion Gap 24 H 5-14 MMOL/L Blood Urea Nitrogen 11 7-18 MG/DL Creatinine 1.00 0.60-1.30 MG/DL Estimat Glomerular Filtration Rate 83 BUN/Creatinine Ratio 11 Glucose Level 467 *H 70-105 MG/DL Calcium Level 9.3 8.5-10.1 MG/DL Corrected Calcium 9.6 8.5-10.1 MG/DL Total Bilirubin 0.6 0.1-1.0 MG/DL Aspartate Amino Transf (AST/SGOT) 17 5-34 U/L Alanine Aminotransferase (ALT/SGPT) 15 0-55 U/L Alkaline Phosphatase 104 40-136 U/L Total Protein 7.5 6.4-8.2 GM/DL Albumin 3.6 3.2-4.5 GM/DL Beta-Hydroxybutyrate (Chem panel) 6.29 H 0.00-0.27 MMOL/L (JUAN CARLOS,LADONNA K DO) My Orders Orders - JUAN CARLOS,LADONNA K DO Insulin (Regular) Human (Novolin R (Per (12/03/22 18:45) Ed Iv/Invasive Line Start (12/03/22 18:32) Ns Iv 1000 Ml (Sodium Chloride 0.9%) (12/03/22 18:45) (JUAN CARLOS,LADONNA K DO) Medications Given in ED Current Medications Medications Dose Ordered Sig/Thierno Route Start Time Stop Time Status Last Admin Dose Admin Acetaminophen 1,000 mg ONCE ONCE PO 12/03/22 16:45 12/03/22 16:46 DC 12/03/22 16:51 1,000 MG Fentanyl Citrate 50 mcg ONCE ONCE IVP 12/03/22 17:15 12/03/22 17:16 DC 12/03/22 17:17 50 MCG Insulin Human Regular 10 unit ONCE ONCE IV 12/03/22 18:45 12/03/22 18:46 DC 12/03/22 18:41 10 UNIT Insulin Human Regular 10 unit ONCE ONCE SC 12/03/22 16:45 12/03/22 16:46 DC 12/03/22 16:51 10 UNIT Ondansetron HCl 4 mg ONCE ONCE IVP 12/03/22 17:00 12/03/22 17:01 DC 12/03/22 16:50 4 MG (JUAN CARLOS,LADONNA K DO) Vital Signs/I&O 12/03/22 16:56 Temp 36.6 Pulse 104 Resp 17 B/P (MAP) 148/62 (90) Pulse Ox 100 (JUAN CARLOS,LADONNA K DO) Vital Signs/I&O Capillary Refill : (JESUS LOPEZ DO) Progress Note : Progress Note 1814--ASSUMED CARE OF PT AT SHIFT CHANGE. DR. LOPEZ HAS CONTACTED [facility], AND PT HAS BEEN ACCEPTED AT [facility], THERE ARE NO LOCAL GROUND EMS SERVICES AVAILABLE, AIR TRANSPORT HAS BEEN ARRANGED. 183--[facility] ETA 8 MINUTES. ADDITIONAL FLUID AND DOSE OF INSULIN ORDERED, GLUCOSE LEVEL REMAINS > 400 1846--[facility] HERE TO TRANSFER PT (LADONNA RANGEL DO) Critical Care Note Critical Care Total Time (minutes) 60 (JESUS LOPEZ DO) Departure Communication (Admissions) Patient complains of significant amount of pelvic and low lumbar pain continued here. OB RN here to do NST. 173: Spoke to Dr Garcia, he will speak to Maternal- medicine given the patients prematurity if there is significant enough risk to harm to transfer to tertiary care facility. Pending call back. 1739: Dr Garcia, rec transfer to tertiary facility. 1749: Spoke with Dr Das, [facility]. Accepts patient in transfer. (JESUS LOPEZ DO) Impression Primary Impression: DKA, type 1 Qualified Codes: E10.10 - Type 1 diabetes mellitus with ketoacidosis without coma Additional Impressions: Pelvic pain 29 weeks gestation of Disposition: XF SHT-TRM HOSP Condition: Stable (ERASED) Transfer Transfer Reason: Exceeds level of care Transfer Facility: [facility] Method of Transfer: Air (LADONNA RANGEL DO) Departure-Patient Inst. Referrals: COLT LAMBERT DO (PCP/Family) Primary Care Physician JESUS LOPEZ DO Dec 03, 2022 16:34 LADONNA RANGEL DO Dec 03, 2022 18:39
[2022-12-03] MEDS ORDERED: NS IV 1000 ML 1,000 ML IV SCH ×3 (16:45→18:45)
[2022-12-03] MEDS ORDERED: inSUlin (REGULAR) HUMAN 1 UNIT/0.01 ML (CHARGE PER UNIT) SC ONE (16:45)
[2022-12-03] MEDS ORDERED: ACETAMINOPHEN 500 MG TAB (TYLENOL) PO ONE (16:45)
[2022-12-03 16:49] LABS: BASOPHILS % (AUTO) 0 % (0-10); EOSINOPHILS % (AUTO) 0 % (0-10); HEMATOCRIT 40 % (35-52); LYMPHOCYTES # (AUTO) 1.4 10^3/uL (1.0-4.0); LYMPHOCYTES % (AUTO) 9 % (12-44); MEAN CORPUSCULAR HEMOGLOBIN 25 pg (25-34); MEAN CORPUSCULAR HGB CONC 33 g/dL (32-36); MEAN CORPUSCULAR VOLUME 77 fL (80-99); MEAN PLATELET VOLUME 12.5 fL (9.0-12.2); MONOCYTES # (AUTO) 0.5 10^3/uL (0.0-1.0); MONOCYTES % (AUTO) 3 % (0-12); NEUTROPHILS # (AUTO) 13.1 10^3/uL (1.8-7.8); NEUTROPHILS % (AUTO) 86 % (42-75); PLATELET COUNT 311 10^3/uL (130-400); WHITE BLOOD COUNT 15.1 10^3/uL (4.3-11.0)
[2022-12-03 16:50] LABS: BILIRUBIN,URINE NEGATIVE (NEGATIVE); CLARITY,URINE CLEAR; COLOR,URINE YELLOW; GLUCOSE, URINE (UA) 3+ (NEGATIVE); KETONES,URINE 3+ (NEGATIVE); LEUKOCYTE ESTERASE ,URINE NEGATIVE (NEGATIVE); NITRITE,URINE NEGATIVE (NEGATIVE); PROTEIN,URINE NEGATIVE (NEGATIVE)
[2022-12-03 16:58] LABS: BACTERIA,URINE FEW /HPF; RBC,URINE 0-2 /HPF
[2022-12-03 17:00] LABS: ALBUMIN 3.6 GM/DL (3.2-4.5); POTASSIUM 4.4 MMOL/L (3.6-5.0)
[2022-12-03] MEDS ORDERED: ONDANSETRON 4 MG/2 ML (SDV) Z0FRAN IVP ONE (17:00)
[2022-12-03 17:02] LABS: CALCIUM 9.3 MG/DL (8.5-10.1)
[2022-12-03 17:03] LABS: TOTAL PROTEIN 7.5 GM/DL (6.4-8.2)
[2022-12-03 17:05] LABS: BILIRUBIN,TOTAL 0.6 MG/DL (0.1-1.0)
[2022-12-03 17:11] LABS: BAND NEUTROPHILS 3 %; BASOPHILS % (MANUAL) 0 %; EOSINOPHILS % (MANUAL) 0 %; LYMPHOCYTES % (MANUAL) 7 %; MICROCYTOSIS SLIGHT; MONOCYTES % (MANUAL) 2 %; NEUTROPHILS % (MANUAL) 88 %
[2022-12-03] MEDS ORDERED: fentaNYL INJ 100 MCG/2 ML AMP IVP ONE (17:15)
[2022-12-03] MEDS ORDERED: inSUlin (REGULAR) HUMAN 1 UNIT/0.01 ML (CHARGE PER UNIT) IV ONE (18:45)
[2022-12-03 18:59] VITALS: BP 150/92
== END 2022-12-03 18:59 | disposition short-term general hospital (02) ==
LOC: EDUNIT# 16:28 → ER 16:29
DX: O24.419 Gestational diabetes mellitus in pregnancy, unspecified control (principal); Z3A.29 29 weeks gestation of pregnancy
CPT/HCPCS: 36415; 80053; 81000; 82010; 82947; 85007; 85027; 87077; 87088

== ENCOUNTER 2023-01-09 11:08 | Inpatient (IN) | payer BC, MEDICAID ==
[~2023-01-09] VITALS: Ht 175 cm; Wt 100.2 kg
[2023-01-09] MEDS ORDERED: PANTOPRAZOLE 40 MG (PROTONIX) VIAL ONE (12:18)
[2023-01-09] MEDS ORDERED: fentaNYL INJ 100 MCG/2 ML AMP ONE (12:18)
[2023-01-09] MEDS ORDERED: LORazepam INJ 2 MG/ML (ATIVAN) VIAL ONE (12:19)
[2023-01-09] MEDS ORDERED: inSUlin (REGULAR) HUMAN 1 UNIT/0.01 ML (CHARGE PER UNIT) ONE ×3 (12:20→14:11)
[2023-01-09] MEDS ORDERED: morphine INJ 4 MG/ML 1 ML (VIAL/SYRINGE) ONE (13:25)
[2023-01-09] MEDS ORDERED: NS IV 1000 ML 1,000 ML ONE (14:30)
[2023-01-09 15:52] LABS: BASOPHILS # (AUTO) 0.1 10^3/uL (0.0-0.1); BASOPHILS % (AUTO) 1 % (0-10); EOSINOPHILS % (AUTO) 0 % (0-10); HEMATOCRIT 45 % (35-52); HEMOGLOBIN 13.4 g/dL (11.5-16.0); LYMPHOCYTES # (AUTO) 2.7 10^3/uL (1.0-4.0); LYMPHOCYTES % (AUTO) 14 % (12-44); MEAN CORPUSCULAR HEMOGLOBIN 24 pg (25-34); MEAN CORPUSCULAR HGB CONC 30 g/dL (32-36); MEAN CORPUSCULAR VOLUME 80 fL (80-99); MEAN PLATELET VOLUME 12.6 fL (9.0-12.2); MONOCYTES # (AUTO) 0.8 10^3/uL (0.0-1.0); MONOCYTES % (AUTO) 4 % (0-12); NEUTROPHILS % (AUTO) 80 % (42-75); PLATELET COUNT 390 10^3/uL (130-400); WHITE BLOOD COUNT 18.9 10^3/uL (4.3-11.0)
[2023-01-09 16:01] LABS: AMPHETAMINE SCREEN, URINE NEGATIVE (NEGATIVE); BARBITURATE SCREEN URINE NEGATIVE (NEGATIVE); BENZODIAZEPINES SCREEN URINE NEGATIVE (NEGATIVE); CANNABINOID SCREEN, URINE NEGATIVE (NEGATIVE); COCAINE SCREEN URINE NEGATIVE (NEGATIVE); METHADONE STAT NEGATIVE (NEGATIVE); OPIATE SCREEN URINE NEGATIVE (NEGATIVE); OXYCODONE STAT NEGATIVE (NEGATIVE); PROPOXYPHENE STAT NEGATIVE (NEGATIVE); TRICYCLIC ANTIDEPRESSANTS SCRE NEGATIVE (NEGATIVE)
[2023-01-09] MEDS ORDERED: DexMEDEtomidine 250 ML DRIP 250 ML IV ONE (16:13)
[2023-01-09] MEDS ORDERED: ONDANSETRON 4 MG/2 ML (SDV) Z0FRAN IVP ONE (17:00)
[2023-01-09] MEDS ORDERED: morphine INJ 4 MG/ML 1 ML (VIAL/SYRINGE) IVP ONE (17:00)
[2023-01-09] MEDS ORDERED: LORazepam INJ 2 MG/ML (ATIVAN) VIAL IVP PRN ×2 (17:00)
[2023-01-09] MEDS ORDERED: NS IV 1000 ML 2,000 ML IV SCH (17:00)
[2023-01-09] MEDS ORDERED: PANTOPRAZOLE 40 MG (PROTONIX) VIAL IV ONE (17:00)
[2023-01-09] MEDS ORDERED: inSUlin (REGULAR) HUMAN 1 UNIT/0.01 ML (CHARGE PER UNIT) IV SCH ×3 (17:00→21:00)
[2023-01-09] MEDS ORDERED: NS IV 1000 ML 1,000 ML IV SCH ×3 (17:00)
[2023-01-09] MEDS ORDERED: fentaNYL INJ 100 MCG/2 ML AMP IVP ONE (17:00)
[2023-01-09 17:01] LABS: BUN/CREATININE RATIO 11; CALCIUM 9.3 MG/DL (8.5-10.1); CHLORIDE 101 MMOL/L (98-107); CREATININE SERUM 1.66 MG/DL (0.60-1.30); GFR ESTIMATED 45; SODIUM 136 MMOL/L (135-145)
[2023-01-09 17:03] LABS: CARBON DIOXIDE < 5 MMOL/L (21-32)
[2023-01-09 17:04] LABS: GLUCOSE 767 MG/DL (70-105)
[2023-01-09 17:07] LABS: BILIRUBIN,URINE NEGATIVE (NEGATIVE); CLARITY,URINE CLEAR; COLOR,URINE YELLOW; GLUCOSE, URINE (UA) 3+ (NEGATIVE); KETONES,URINE 3+ (NEGATIVE); LEUKOCYTE ESTERASE ,URINE NEGATIVE (NEGATIVE); NITRITE,URINE NEGATIVE (NEGATIVE); PH,URINE 5.5 (5-9); PROTEIN,URINE NEGATIVE (NEGATIVE)
[2023-01-09 17:08] LABS: BACTERIA,URINE NEGATIVE /HPF; SQUAMOUS EPITHELIAL CELL,UR RARE /HPF; YEAST,URINE FEW /HPF
[2023-01-09 17:10] LABS: BAND NEUTROPHILS 2 %; BASOPHILS % (MANUAL) 0 %; EOSINOPHILS % (MANUAL) 0 %; LYMPHOCYTES % (MANUAL) 10 %; MONOCYTES % (MANUAL) 1 %; NEUTROPHILS % (MANUAL) 87 %; RBC MORPH NORMAL
[2023-01-09 17:11] LABS: ALANINE AMINOTRANSFERASE 19 U/L (0-55); ALBUMIN 4.5 GM/DL (3.2-4.5); ALKALINE PHOSPHATASE 220 U/L (40-136); BILIRUBIN,TOTAL 0.3 MG/DL (0.1-1.0); BUN/CREATININE RATIO 10; CALCIUM 9.5 MG/DL (8.5-10.1); CHLORIDE 95 MMOL/L (98-107); CREATININE SERUM 1.77 MG/DL (0.60-1.30); GFR ESTIMATED 42; MAGNESIUM 2.4 MG/DL (1.6-2.4); TOTAL PROTEIN 8.1 GM/DL (6.4-8.2)
[2023-01-09 17:14] LABS: CARBON DIOXIDE < 5 MMOL/L (21-32); POTASSIUM 6.8 MMOL/L (3.6-5.0)
[2023-01-09 17:15] LABS: GLUCOSE 883 MG/DL (70-105); SODIUM 130 MMOL/L (135-145)
[2023-01-09] MEDS ORDERED: POTASSIUM CL 10MEQ/50ML IVPB 50 ML IV SCH (17:15)
[2023-01-09] MEDS ORDERED: DexMEDEtomidine 1,000 MCG/250 ML IV SCH (17:15)
[2023-01-09] MEDS ORDERED: LORazepam INJ 2 MG/ML (ATIVAN) VIAL IV PRN (17:15)
[2023-01-09] MEDS ORDERED: PROMETHAZINE INJ 25 MG/ML (PHENERGAN) AMP IV PRN (17:15)
[2023-01-09] MEDS: morphine INJ 4 MG/ML 1 ML (VIAL/SYRINGE) IV PRN (17:32)
[2023-01-09 17:33] LABS: HEMATOCRIT 37 % (35-52); HEMOGLOBIN 11.4 g/dL (11.5-16.0); MEAN CORPUSCULAR HEMOGLOBIN 24 pg (25-34); MEAN CORPUSCULAR HGB CONC 31 g/dL (32-36); MEAN CORPUSCULAR VOLUME 77 fL (80-99); MEAN PLATELET VOLUME 10.9 fL (9.0-12.2); PLATELET COUNT 410 10^3/uL (130-400); WHITE BLOOD COUNT 21.4 10^3/uL (4.3-11.0)
--- NOTE | 2023-01-09 17:45 | Diagnostic Imaging Report ---
CHEST 1 VIEW, AP/PA ONLY INDICATION: Central venous catheter placement. COMPARISON: Chest radiograph 12/01/2021. FINDINGS: Support devices: Right central venous catheter tip projects over the SVC. Lungs: Normal lung volume. No focal consolidation. Stable pulmonary vasculature. Pleura: No pleural effusion or pneumothorax. Heart and Mediastinum: Cardiomediastinal silhouette and great vessels of the thorax are stable. Osseous Structures and Soft Tissues: No acute osseous abnormality. Normal soft tissues. IMPRESSION: No acute cardiopulmonary process. Dictated by: Dictated on workstation # [id number]
[2023-01-09 17:48] LABS: POTASSIUM 4.6 MMOL/L (3.6-5.0)
[2023-01-09 17:50] LABS: CALCIUM 8.4 MG/DL (8.5-10.1)
[2023-01-09 17:54] LABS: CREATININE SERUM 1.9 MG/DL (0.60-1.30)
--- NOTE | 2023-01-09 18:02 | Consultation - Surgery ---
History of Present Illness History of Present Illness Patient Consulted On(anders/time) 01/09/23 18:02 Date Seen by Provider: January 09, 2023 Time Seen by Provider: 18:02 History of Present Illness Consult requested by Dr. Diamond for poor venous acess. Patient is a 22 year old female who is not able to provide me with any information. She is in the ICU and grandmother at bedside. Patient admitted to the ICU with DKA. Has poor venous access. Has required central lines on previous admissions. Asked to place central line. Allergies and Home Medications Allergies Coded Allergies: bismuth subsalicylate (Verified Allergy, Unknown, 08/29/22) latex (Unverified Allergy, Unknown, 01/09/23) Patient Home Medication List Home Medication List Reviewed: Yes Acetaminophen (Tylenol Extra Strength) 500 Mg Tablet, 1,000 MG PO Q8H PRN for PAIN-MILD (1-4), (Reported) Entered as Reported by: COLT BOURNE on 02/16/22 1100 Insulin Lispro (Insulin Lispro) 100 Unit/Ml Vial, UNITS SC UD, (Reported) Entered as Reported by: COLT BOURNE on 08/17/22 1223 Vit W-Ca,Fe,FA(<1 mg) ( Formula) 28 Mg Iron-800 Mcg Tablet, 1 E ACH PO BID, (Reported) Entered as Reported by: COLT BOURNE on 08/22/22 1159 Past Myhcvkx-Ywvdnz-Jxjjxe Hx Patient Social History Type Used: Electronic/Vapor 2nd Hand Smoke Exposure: No Recent Hopitalizations: Yes (DKA) Alcohol Use?: No Immunizations Up To Date Tetanus Booster (TDap): Less than 5yrs PED Vaccines UTD: Yes Date of Influenza Vaccine: Jul 25, 2022 Seasonal Allergies Seasonal Allergies: No Surgeries History of Surgeries: No Respiratory History of Respiratory Disorde: No Cardiovascular History of Cardiac Disorders: Yes (TACHYCARDIA) Cardiac Disorders: Palpitations Neurological History of Neurological Disord: No Reproductive System Hx Reproductive Disorders: No Sexually Transmitted Disease: No HIV/AIDS: No Female Reproductive Disorders: Denies Genitourinary History of Genitourinary Disor: Yes Genitourinary Disorders: Bladder Infection Gastrointestinal History of Gastrointestinal Di: Yes (CANNABIS HYPEREMESIS; CHRONIC N/V AND ABDOMINAL PAIN ) Musculoskeletal History of Musculoskeletal Dis: No Endocrine History of Endocrine Disorders: Yes (TYPE 1 DIABETES WITH MULTIPLE EPISODES OF DKA. DX AGE 12) Endocrine Disorders: Diabetes, Insulin dep HEENT History of HEENT Disorders: No Loss of Vision: Denies Hearing Impairment: Denies Cancer History of Cancer: No Psychosocial History of Psychiatric Problem: Yes Behavioral Health Disorders: Anxiety, Depression Integumentary History of Skin or Integumenta: No Blood Transfusions History of Blood Disorders: No Adverse Reaction to a Blood Tr: No Reviewed Nursing Assessment Reviewed/Agree w Nursing PMH: Yes Family Medical History Significant Family History: No Pertinent Family Hx Review of Systems-General ROS-Unable to Obtain: unable to obtain due to patient not answering questions/condition Physical Exam-General Problems Physical Exam Vital Signs Vital Signs - First Documented 01/09/23 11:36 Temp 35.7 Pulse 135 Resp 32 B/P (MAP) 123/90 (101) Pulse Ox 99 O2 Delivery Room Air Capillary Refill : Less Than 3 Seconds General Appearance: WD/WN, no apparent distress HEENT: PERRL/EOMI, normal ENT inspection Neck: non-tender, supple Respiratory: chest non-tender, no respiratory distress, no accessory muscle use Cardiovascular: no JVD, tachycardia Gastrointestinal: non tender, soft Rectal: deferred Back: no CVA tenderness, no vertebral tenderness Extremities: no pedal edema, no calf tenderness Neurologic/Psychiatric: No normal mood/affect, No oriented x 3; other (does not answer questions, seems extremely fatigued) Skin: normal color, warm/dry Lymphatic: no adenopathy Data Review Labs Laboratory Tests 01/09/23 12:00: White Blood Count 18.9H, Red Blood Count 5.57H, Hemoglobin 13.4, Hematocrit 45, Mean Corpuscular Volume 80, Mean Corpuscular Hemoglobin 24L, Mean Corpuscular Hemoglobin Concent 30L, Red Cell Distribution Width 15.9H, Platelet Count 390, Mean Platelet Volume 12.6H, Immature Granulocyte % (Auto) 1, Neutrophils (%) (Au to) 80H, Lymphocytes (%) (Auto) 14, Monocytes (%) (Auto) 4, Eosinophils (%) (Auto) 0, Basophils (%) (Auto) 1, Neutrophils # (Auto) 15.0H, Lymphocytes # (Auto) 2.7, Monocytes # (Auto) 0.8, Eosinophils # (Auto) 0.0, Basophils # (Auto) 0.1, Immature Granulocyte # (Auto) 0.3H, Neutrophils % (Manual) 87, Lymphocytes % (Manual) 10, Monocytes % (Manual) 1, Eosinophils % (Manual) 0, Basophils % (Manual) 0, Band Neutrophils 2, Blood Morphology Comment NORMAL 01/09/23 12:02: Urine Color YELLOW, Urine Clarity CLEAR, Urine pH 5.5, Urine Specific [place] 1.020, Urine Protein NEGATIVE, Urine Glucose (UA) 3+H, Urine Ketones 3+H, Urine Nitrite NEGATIVE, Urine Bilirubin NEGATIVE, Urine Urobilinogen 0.2, Urine Leukocyte Esterase NEGATIVE, Urine RBC (Auto) 2+H, Urine RBC NONE, Urine WBC NONE, Urine Squamous Epithelial Cells RARE, Urine Crystals NONE, Urine Bacteria NEGATIVE, Urine Casts NONE, Urine Mucus NEGATIVE, Urine Yeast FEWH, Urine Culture Indicated YES, Sodium Level 130L, Potassium Level 6.8*H, Chloride Level 95L, Carbon Dioxide Level < 5*L, Anion Gap 30H, Blood Urea Nitrogen 18, Creatinine 1.77H, Estimat Glomerular Filtration Rate 42, BUN/Creatinine Ratio 10, Glucose Level 883*H, Calcium Level 9.5, Corrected Calcium 9.1, Magnesium Level 2.4, Total Bilirubin 0.3, Aspartate Amino Transf (AST/SGOT) 36H, Alanine Aminotransferase (ALT/SGPT) 19, Alkaline Phosphatase 220H, Total Protein 8.1, Albumin 4.5 01/09/23 13:09: Sodium Level 136, Potassium Level 5.0, Chloride Level 101, Carbon Dioxide Level < 5*L, Anion Gap 30H, Blood Urea Nitrogen 18, Creatinine 1.66H, Estimat Glomerular Filtration Rate 45, BUN/Creatinine Ratio 11, Glucose Level 767*H, Calcium Level 9.3, Urine Opiates Screen NEGATIVE, Urine Oxycodone Screen NEGATIVE, Urine Methadone Screen NEGATIVE, Urine Propoxyphene Screen NEGATIVE, Urine Barbiturates Screen NEGATIVE, Ur Tricyclic Antidepressants Screen NEGATIVE, Urine Phencyclidine Screen NEGATIVE, Urine Amphetamines Screen NEGATIVE, Urine Methamphetamines Screen NEGATIVE, Urine Benzodiazepines Screen NEGATIVE, Urine Cocaine Screen NEGATIVE, Urine Cannabinoids Screen NEGATIVE 01/09/23 13:25: Serum Test, Qualitative NEGATIVE 01/09/23 15:11: Glucometer 585*H 01/09/23 15:57: Glucometer 496*H 01/09/23 17:23: White Blood Count 21.4H, Red Blood Count 4.75, Hemoglobin 11.4L, Hematocrit 37, Mean Corpuscular Volume 77L, Mean Corpuscular Hemoglobin 24L, Mean Corpuscular Hemoglobin Concent 31L, Red Cell Distribution Width 15.5H, Platelet Count 410H, Mean Platelet Volume 10.9, Sodium Level 137, Potassium Level 4.6, Chloride Level 108H, Anion Gap 24H, Blood Urea Nitrogen 19H, Creatinine 1.90H, Estimat Glomerular Filtration Rate 38, BUN/Creatinine Ratio 10, Glucose Level 284H, Calcium Level 8.4L 01/09/23 17:34: Glucometer 317H Assessment/Plan Assessment/Plan Assessment/Plan Poor venous access DKA Patient needing better venous access. Will place right IJ u/s guided central line chest x ray to follow. will sign off, call if needed see procedure dictation for central line. CAILIN TORRES DO January 09, 2023 18:02
[2023-01-09] MEDS: ENOXAPARIN 40 MG/0.4 ML (LOVENOX) SYR SC SCH (18:29)
[2023-01-09] MEDS: 1/2 NS IV SOLUTION 1,000 ML IV SCH ×2 (18:30→21:46)
[2023-01-09] MEDS: POTASSIUM CL 10MEQ/50ML IVPB 50 ML IV SCH ×3 (18:37→23:13)
--- NOTE | 2023-01-09 19:51 | History & Physical-Hospitalist ---
History of Present Illness HPI/Chief Complaint CC: DKA HPI: This is a 22yoWF type 1 DM who presented to the ER with N/V and malfunction of her insulin pump line and dx with DKA. She has multiple hospital stays due to DKA. Recently she experienced demise at 29 weeks following DKA which required transfer to [place] then transferred to where she lost the baby. She remains very emotional labile and required Precedex. Source: RN/MD Exam Limitations: clinical condition Date Seen 01/09/23 Time Seen by a Provider: 18:30 Attending Physician Carlos Lyn DO PCP Admitting Physician: Patito Diamond DO Attending Physician: Patito Diamond DO Referring Physician Date of Admission January 09, 2023 at 16:15 Home Medications & Allergies Home Medications Reviewed patient Home Medication Reconciliation performed by pharmacy medication reconciliations rv repair technician and/or nursing. Patients Allergies have been reviewed. Allergies Allergies Coded Allergies bismuth subsalicylate (Verified Allergy, Unknown, 08/29/22) latex (Unverified Allergy, Unknown, 01/09/23) Past Svdfnjv-Kgriba-Kmgjxu Hx Patient Social History Marrital Status: single Employed/Student: unemployed Smoking Status: Never a Smoker Use of E-Cig and/or Vaping dev: Yes E-Cig or Vaping type used: Nicotine Substance use?: No Alcohol Use?: No Immunizations Up To Date Date of Influenza Vaccine: Jul 25, 2022 First/Initial COVID19 Vaccinat: APR 2021 Second COVID19 Vaccination [place]: MAY 2021 Tetanus Booster (TDap): Less Than 5 Years Hepatitis A: Yes Hepatitis B: Yes PED Vaccines UTD: Yes Seasonal Allergies Seasonal Allergies: No Current Status status: No Advance Directives: No Communicates: Verbally Primary Language: Lebanese Preferred Spoken Language: Lebanese Is interpretation needed?: No Past Medical History Currently Using CPAP: No Currently Using BIPAP: No Palpitations Sexually Transmitted Disease: No HIV/AIDS: No Bladder Infection Diabetes, Insulin dep Loss of Vision: Denies Hearing Impairment: Denies Anxiety, Depression Blood Disorders: No Adverse Reaction/Blood Tranf: No PMHx: Type I DM Depression SurgHx: Denies Family Medical History No Pertinent Family Hx MULTITUDE OF VISITS, MANY FOR DKA/DIABETES RELATED ISSUES ALSO MULTIPLE VISITS FOR CHRONIC NAUSEA/VOMITING AND ABDOMINAL PAIN RELATED TO MARIJANA USE/CANNIBIS HYPEREMESIS. Review of Systems Constitutional: see HPI Physical Exam Physical Exam Vital Signs Vital Signs - First Documented 01/09/23 11:36 Temp 35.7 Pulse 135 Resp 32 B/P (MAP) 123/90 (101) Pulse Ox 99 O2 Delivery Room Air Capillary Refill : Less Than 3 Seconds Height, Weight, BMI Height: 5'9.00" Weight: 255lbs. 0oz. 115.135898ud; 30.04 BMI Method:Stated General Appearance: No Apparent Distress, Chronically ill, Other (asleep) Respiratory: Lungs Clear, Normal Breath Sounds Cardiovascular: Regular Rate, Rhythm Results Results/Procedures Labs Laboratory Tests 01/09/23 12:00 01/09/23 12:02 01/09/23 13:09 01/09/23 17:23 01/09/23 22:05 01/10/23 02:30 Patient resulted labs reviewed. Assessment/Plan Admission Diagnosis Assessment: DKA GABE Recent 29 week demise Emotional labile status Plan: Insulin drip Monitor closely Admission Status: Inpatient Order (span 2 midnights) Reason for Inpatient Admission: dka PATITO DIAMOND DO January 09, 2023 19:51
[2023-01-09] MEDS: D5 1/2 NS 1000 ML IV SOLUTION 1,000 ML IV SCH ×2 (19:54→23:54)
--- NOTE | 2023-01-09 21:42 | ED General ---
General Chief Complaint: Glucose Problems Stated Complaint: DKA, ANXIETY, NAUSEA AND VOMITING Nursing Triage Note: Patient reports home glucose meter reading "high". Patient states her sugar was 430 at 0930 this morning and then read "high" at 1030. Patient states her insulin pump tubing got kinked overnight. After 1030 reading, patient bolused with 13 units of insulin. Patient reporting upon arrival to ED that her pump has now . Patient also c/o nausea, vomiting and pain "all over". Patient tachypneic upon arrival to ED and very tearful. Patient stating she believes she is in DKA. Nursing Sepsis Screen: Sepsis Risk Source of Information: Patient, Family Exam Limitations: No Limitations History of Present Illness Date Seen by Provider: January 09, 2023 Time Seen by Provider: 12:05 Allergies and Home Medications Allergies Coded Allergies: bismuth subsalicylate (Verified Allergy, Unknown, 08/29/22) latex (Unverified Allergy, Unknown, 01/09/23) Patient Home Medication List Acetaminophen (Tylenol Extra Strength) 500 Mg Tablet, 1,000 MG PO Q8H PRN for PAIN-MILD (1-4), (Reported) Entered as Reported by: COLT BOURNE on 02/16/22 1100 Insulin Lispro (Insulin Lispro) 100 Unit/Ml Vial, UNITS SC UD, (Reported) Entered as Reported by: COLT BOURNE on 08/17/22 1223 Vit W-Ca,Fe,FA(<1 mg) ( Formula) 28 Mg Iron-800 Mcg Tablet, 1 EACH PO BID, (Reported) Entered as Reported by: COLT BOURNE on 08/22/22 1159 Past Jegdbuq-Fmvobu-Objlmt Hx Patient Social History Use of E-Cig and/or Vaping dev: Yes E-Cig or Vaping type used: Nicotine Substance use?: No Alcohol Use?: No Immunizations Up To Date Tetanus Booster (TDap): Less than 5yrs PED Vaccines UTD: Yes First/Initial COVID19 Vaccinat: APR 2021 Second COVID19 Vaccination [place]: MAY 2021 Third COVID19 Vaccination Date: APR 2021 Seasonal Allergies Seasonal Allergies: No Past Medical History Surgery/Hospitalization HX: MULTIPLE HOSPITALIZATIONS FOR DKA; HAD STILLBORN ON DECEMBER 07 @ 29 WKS Surgeries: No Respiratory: No Currently Using CPAP: No Currently Using BIPAP: No Cardiac: Yes (TACHYCARDIA) Palpitations Neurological: No Reproductive Disorders: No Female Reproductive Disorders: Denies Sexually Transmitted Disease: No HIV/AIDS: No Genitourinary: Yes Bladder Infection Gastrointestinal: Yes (CANNABIS HYPEREMESIS; CHRONIC 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 DX AGE 12) Diabetes, Insulin dep HEENT: No Loss of Vision: Denies Hearing Impairment: Denies Cancer: No Psychosocial: Yes Anxiety, Depression Integumentary: No Blood Disorders: No Adverse Reaction/Blood Tranf: No Family Medical History No Pertinent Family Hx MULTITUDE OF VISITS, MANY FOR DKA/DIABETES RELATED ISSUES ALSO MULTIPLE VISITS FOR CHRONIC NAUSEA/VOMITING AND ABDOMINAL PAIN RELATED TO MARIJANA USE/CANNIBIS HYPEREMESIS. Physical Exam Vital Signs Vital Signs - First Documented 01/09/23 11:36 Temp 35.7 Pulse 135 Resp 32 B/P (MAP) 123/90 (101) Pulse Ox 99 O2 Delivery Room Air Capillary Refill : Less Than 3 Seconds Height, Weight, BMI Height: 5'9.00" Weight: 255lbs. 0oz. 115.619126ps; 30.04 BMI Method:Stated Procedures/Interventions Date of ETT Placement: Feb 18, 2021 Time of ETT Placement: 1432 Progress/Results/Core Measures Suspected Sepsis Infection Criteria Present: Suspected New Infection Sepsis Screen: Sepsis Risk SIRS Temperature: Pulse: 128 Respiratory Rate: 28 Laboratory Tests 01/09/23 12:00: White Blood Count 18.9H Blood Pressure 107 /71 Mean: 68 Laboratory Tests 01/09/23 12:00: Platelet Count 390 01/09/23 12:02: Creatinine 1.77H, Total Bilirubin 0.3 01/09/23 13:09: Creatinine 1.66H Results/Orders Lab Results Laboratory Tests Test 01/09/23 12:00 01/09/23 12:02 01/09/23 13:09 01/09/23 13:25 Range/Units White Blood Count 18.9 H 4.3-11.0 10^3/uL Red Blood Count 5.57 H 3.80-5.11 10^6/uL Hemoglobin 13.4 11.5-16.0 g/dL Hematocrit 45 35-52 % Mean Corpuscular Volume 80 80-99 fL Mean Corpuscular Hemoglobin 24 L 25-34 pg Mean Corpuscular Hemoglobin Concent 30 L 32-36 g/dL Red Cell Distribution Width 15.9 H 10.0-14.5 % Platelet Count 390 130-400 10^3/uL Mean Platelet Volume 12.6 H 9.0-12.2 fL Immature Granulocyte % (Auto) 1 % Neutrophils (%) (Auto) 80 H 42-75 % Lymphocytes (%) (Auto) 14 12-44 % Monocytes (%) (Auto) 4 0-12 % Eosinophils (%) (Auto) 0 0-10 % Basophils (%) (Auto) 1 0-10 % Neutrophils # (Auto) 15.0 H 1.8-7.8 10^3/uL Lymphocytes # (Auto) 2.7 1.0-4.0 10^3/uL Monocytes # (Auto) 0.8 0.0-1.0 10^3/uL Eosinophils # (Auto) 0.0 0.0-0.3 10^3/uL Basophils # (Auto) 0.1 0.0-0.1 10^3/uL Immature Granulocyte # (Auto) 0.3 H 0.0-0.1 10^3/uL Neutrophils % (Manual) 87 % Lymphocytes % (Manual) 10 % Monocytes % (Manual) 1 % Eosinophils % (Manual) 0 % Basophils % (Manual) 0 % Band Neutrophils 2 % Blood Morphology Comment NORMAL Urine Color YELLOW Urine Clarity CLEAR Urine pH 5.5 5-9 Urine Specific [place] 1.020 1.016-1.022 Urine Protein NEGATIVE NEGATIVE Urine Glucose (UA) 3+ H NEGATIVE Urine Ketones 3+ H NEGATIVE Urine Nitrite NEGATIVE NEGATIVE Urine Bilirubin NEGATIVE NEGATIVE Urine Urobilinogen 0.2 < = 1.0 MG/DL Urine Leukocyte Esterase NEGATIVE NEGATIVE Urine RBC (Auto) 2+ H NEGATIVE Urine RBC NONE /HPF Urine WBC NONE /HPF Urine Squamous Epithelial Cells RARE /HPF Urine Crystals NONE /LPF Urine Bacteria NEGATIVE /HPF Urine Casts NONE /LPF Urine Mucus NEGATIVE /LPF Urine Yeast FEW H /HPF Urine Culture Indicated YES Sodium Level 130 L 136 135-145 MMOL/L Potassium Level 6.8 *H 5.0 3.6-5.0 MMOL/L Chloride Level 95 L 101 98-107 MMOL/L Carbon Dioxide Level < 5 *L < 5 *L 21-32 MMOL/L Anion Gap 30 H 30 H 5-14 MMOL/L Blood Urea Nitrogen 18 18 7-18 MG/DL Creatinine 1.77 H 1.66 H 0.60-1.30 MG/DL Estimat Glomerular Filtration Rate 42 45 BUN/Creatinine Ratio 10 11 Glucose Level 883 *H 767 *H 70-105 MG/DL Calcium Level 9.5 9.3 8.5-10.1 MG/DL Corrected Calcium 9.1 8.5-10.1 MG/DL Magnesium Level 2.4 1.6-2.4 MG/DL Total Bilirubin 0.3 0.1-1.0 MG/DL Aspartate Amino Transf (AST/SGOT) 36 H 5-34 U/L Alanine Aminotransferase (ALT/SGPT) 19 0-55 U/L Alkaline Phosphatase 220 H 40-136 U/L Total Protein 8.1 6.4-8.2 GM/DL Albumin 4.5 3.2-4.5 GM/DL Urine Opiates Screen NEGATIVE NEGATIVE Urine Oxycodone Screen NEGATIVE NEGATIVE Urine Methadone Screen NEGATIVE NEGATIVE Urine Propoxyphene Screen NEGATIVE NEGATIVE Urine Barbiturates Screen NEGATIVE NEGATIVE Ur Tricyclic Antidepressants Screen NEGATIVE NEGATIVE Urine Phencyclidine Screen NEGATIVE NEGATIVE Urine Amphetamines Screen NEGATIVE NEGATIVE Urine Methamphetamines Screen NEGATIVE NEGATIVE Urine Benzodiazepines Screen NEGATIVE NEGATIVE Urine Cocaine Screen NEGATIVE NEGATIVE Urine Cannabinoids Screen NEGATIVE NEGATIVE Serum Test, Qualitative NEGATIVE NEGATIVE Test 01/09/23 15:11 01/09/23 15:57 Range/Units Glucometer 585 *H 496 *H 70-110 MG/DL My Orders Orders - SANTI NOBLES MD Fentanyl Inj (Sublimaze Injection) (01/09/23 12:18) Pantoprazole Injection (Protonix Injecti (01/09/23 12:18) Lorazepam Injection (Ativan Injection) (01/09/23 12:19) Insulin (Regular) Human (Novolin R (Per (01/09/23 12:20) Insulin (Regular) Human (Novolin R (Per (01/09/23 13:15) Morphine Injection (Morphine Injection (01/09/23 13:25) Insulin Regular Drip (Myxredlin 100 Unit (01/09/23 13:59) Insulin (Regular) Human (Novolin R (Per (01/09/23 14:11) Ns Iv 1000 Ml (Sodium Chloride 0.9%) (01/09/23 14:30) Hcg,Qualitative Serum (01/09/23 13:25) Urinalysis (01/09/23 12:02) Cbc With Automated Diff (01/09/23 12:00) Manual Differential (01/09/23 12:00) Drug Screen Stat (Urine) (01/09/23 13:09) Comprehensive Metabolic Panel (01/09/23 12:02) Magnesium (01/09/23 12:02) Basic Metabolic Panel (01/09/23 13:09) Dexmedetomidine 250 Ml Drip (Precedex Dr (01/09/23 16:13) Vital Signs/I&O 01/09/23 01/09/23 01/09/23 01/09/23 11:36 12:28 13:27 16:15 Temp 35.7 35.7 35.7 35.2 Pulse 135 128 Resp 32 28 B/P (MAP) 123/90 (101) 107/71 Pulse Ox 99 100 O2 Delivery Room Air Room Air Capillary Refill : Less Than 3 Seconds Blood Pressure Mean: 68 Point of Care Testing Finger Stick Blood Glucose: 179 Blood Glucose Action Taken: DR INFORMED Departure Impression Primary Impression: DKA (diabetic ketoacidosis) Qualified Codes: E10.10 - Type 1 diabetes mellitus with ketoacidosis without coma Additional Impressions: Nausea and vomiting Qualified Codes: R11.2 - Nausea with vomiting, unspecified Anxiety Disposition: ADMITTED INPATIENT Condition: Improved Admissions Decision to Admit Reason: Admit from ER (General) Decision to Admit/Date: January 09, 2023 Departure-Patient Inst. Referrals: COLT LAMBERT DO (PCP) Primary Care Physician SANTI NOBLES MD January 09, 2023 21:42
[2023-01-09 22:26] LABS: POTASSIUM 4.4 MMOL/L (3.6-5.0)
[2023-01-09 22:27] LABS: CALCIUM 7.6 MG/DL (8.5-10.1)
[2023-01-09 22:31] LABS: CREATININE SERUM 1.29 MG/DL (0.60-1.30)
[2023-01-10] MEDS: 1/2 NS IV SOLUTION 1,000 ML IV SCH ×6 (01:36→20:18)
[2023-01-10] MEDS: POTASSIUM CL 10MEQ/50ML IVPB 50 ML IV SCH ×8 (01:37→23:29)
[2023-01-10] MEDS: morphine INJ 4 MG/ML 1 ML (VIAL/SYRINGE) IV PRN ×7 (02:50→22:29)
[2023-01-10 03:11] LABS: BASOPHILS % (AUTO) 0 % (0-10); EOSINOPHILS % (AUTO) 0 % (0-10); HEMATOCRIT 29 % (35-52); HEMOGLOBIN 9.2 g/dL (11.5-16.0); LYMPHOCYTES # (AUTO) 3.2 10^3/uL (1.0-4.0); LYMPHOCYTES % (AUTO) 23 % (12-44); MEAN CORPUSCULAR HEMOGLOBIN 24 pg (25-34); MEAN CORPUSCULAR HGB CONC 32 g/dL (32-36); MEAN CORPUSCULAR VOLUME 74 fL (80-99); MEAN PLATELET VOLUME 11.1 fL (9.0-12.2); MONOCYTES # (AUTO) 1.2 10^3/uL (0.0-1.0); MONOCYTES % (AUTO) 9 % (0-12); NEUTROPHILS # (AUTO) 9.4 10^3/uL (1.8-7.8); NEUTROPHILS % (AUTO) 67 % (42-75); PLATELET COUNT 330 10^3/uL (130-400)
[2023-01-10 03:16] LABS: ALBUMIN 2.9 GM/DL (3.2-4.5)
[2023-01-10 03:17] LABS: POTASSIUM 3.8 MMOL/L (3.6-5.0)
[2023-01-10 03:18] LABS: CALCIUM 7.6 MG/DL (8.5-10.1)
[2023-01-10 03:19] LABS: TOTAL PROTEIN 5.3 GM/DL (6.4-8.2)
[2023-01-10 03:21] LABS: BILIRUBIN,TOTAL 0.2 MG/DL (0.1-1.0)
[2023-01-10 03:22] LABS: PHOSPHORUS 1.8 MG/DL (2.3-4.7)
[2023-01-10 03:23] LABS: CREATININE SERUM 1.09 MG/DL (0.60-1.30)
[2023-01-10 03:25] LABS: MAGNESIUM 1.4 MG/DL (1.6-2.4)
[2023-01-10] MEDS ORDERED: NS IV 500 ML 500 ML IV PRN (03:45)
[2023-01-10] MEDS: D5 1/2 NS 1000 ML IV SOLUTION 1,000 ML IV SCH ×3 (04:02→21:29)
--- NOTE | 2023-01-10 05:28 | OPERATIVE REPORT ---
DATE OF SERVICE: 01/09/2023 PREOPERATIVE DIAGNOSES: Poor venous access, diabetic ketoacidosis. POSTOPERATIVE DIAGNOSES: Poor venous access, diabetic ketoacidosis. PROCEDURE: Right internal jugular vein Ultrasound-guided central line placement. SURGEON: Cailin Lewis DO. ESTIMATED BLOOD LOSS: 1% lidocaine 4 mL COMPLICATIONS: None. INDICATIONS: The patient is a 22-year-old female with diabetic ketoacidosis. She has got poor venous access. She is needing better venous access for further management of medications and fluids. The patient and family understand risks and benefits and wished to proceed. DESCRIPTION OF PROCEDURE: A timeout was performed. Ultrasound was used to isolate the right internal jugular vein after she was prepped and draped in sterile fashion. Local anesthetic was infiltrated under direct visualization of ultrasound. The right internal jugular vein was then accessed with ultrasound guidance. Dark nonpulsatile blood was withdrawn. A syringe was removed and the wire was inserted through the needle was removed. An 11 blade scalpel was used to make a small skin incision. Dilator sheath was then advanced over the wire and removed. Triple lumen catheter was advanced over the wire and the wire was removed. We will ports were accessed and flushed without difficulty catheter was secured with 3-0 silk suture. The area was washed and dried and sterile bandage was applied. The patient tolerated the procedure well without complications. Chest x-ray pending. Job ID: [id number] DocumentID: [id number] Dictated Date: 01/09/2023 22:04:33 Junior Project Coordinator Date: 01/10/2023 05:26:00 Dictated By: CAILIN LEWIS DO
[2023-01-10] MEDS: KCL 20 MEQ TAB (K-DUR) PO SCH (05:52)
[2023-01-10] MEDS: MAGNESIUM 1 GM/100 ML IVPB 100 ML IV SCH ×7 (05:54→13:37)
[2023-01-10] MEDS ORDERED: ACETAMINOPHEN 325 MG TABLET PO PRN (07:00)
[2023-01-10] MEDS: PANTOPRAZOLE 40 MG (PROTONIX) VIAL IV SCH (08:23)
--- NOTE | 2023-01-10 09:35 | Pulmonary Consultation ---
History of Present Illness History of Present Illness Date Seen by Provider: January 10, 2023 Time Seen by Provider: 07:00 Date of Admission This virtual visit was conducted using real time audio/video. Thank you for asking us to see this patient for critical care services due to DKA PE: VSS. Obese, pale. O2 sat 98% on RA HEENT: No obvious masses, adenopathy or JVD. Chest: clear to auscultation. CV: RRR S1 S2 No murmur or added sounds. Abd: Non-tender. Bowel sounds Y. : Unremarkable. Jeffries N. LAN SPECIALIST/psychiatric: Grossly intact. No obvious focal findings. Extremities: No edema. Capillary refill < 3 seconds. Skin: unremarkable. Results: Elevated WCC 14.0, improving, BG 185, AG 13. Decreased Hb 9.2. CXR: Clear. Available chart/ vitals / labs / images reviewed. Video assessment done using teleICU camera, rest of exam as per RN. A/P: Critical Care: critically ill patient. Cont. IV insulin, IVF, tyl., PPI, Silverio. BMP pending Discussed with RN Kelly. Asked RN to reach out to eICU if any questions or concerns later. Time spent with patient/coordination of care with other health professionals (mins): 20 History of Present Illness See free text Allergies and Home Medications Allergies Coded Allergies: bismuth subsalicylate (Verified Allergy, Unknown, 08/29/22) latex (Unverified Allergy, Unknown, 01/09/23) Home Medications Acetaminophen 500 Mg Tablet, 1,000 MG PO Q8H PRN for PAIN-MILD (1-4), (Reported) Insulin Lispro 100 Unit/Ml Vial, UNITS SC UD, (Reported) USES VIA PUMP Vit W-Ca,Fe,FA(<1 mg) 28 Mg Iron-800 Mcg Tablet, 1 EACH PO BID, (Reported) Past Medical/Social/Family Hx Patient Social History Marrital Status: single Employed/Student: unemployed Tobacco Use?: No (See free text) Smoking Status: Never a Smoker Use of E-Cig and/or Vaping dev: Yes E-Cig or Vaping type used: Nicotine Substance use?: No Alcohol Use?: No Immunizations Up To Date First/Initial COVID19 Vaccinat: APR 2021 Second COVID19 Vaccination [place]: MAY 2021 Tetanus Booster (TDap): Less Than 5 Years Hepatitis A: Yes Hepatitis B: Yes TB Skin Test: None Current Status status: No Advance Directives: No Communicates: Verbally Primary Language: Sinhala Preferred Spoken Language: Sinhala Is interpretation needed?: No Past Medical History PMHx: Type I DM Depression SurgHx: Denies Family Medical History Family Hx: MULTITUDE OF VISITS, MANY FOR DKA/DIABETES RELATED ISSUES ALSO MULTIPLE VISITS FOR CHRONIC NAUSEA/VOMITING AND ABDOMINAL PAIN RELATED TO MARIJANA USE/CANNIBIS HYPEREMESIS. Review of Systems Constitutional: see HPI, other EENTM: see HPI Respiratory: see HPI Gastrointestinal: see HPI Genitourinary: see HPI Musculoskeletal: see HPI Skin: see HPI (See free text), change in color (See free text) Sepsis Event Evaluation Sepsis Stage: Ruled Out Reason for ruling out sepsis: No evidence Height, Weight, BMI Height: 5'9.00" Weight: 255lbs. 0oz. 115.521943pc; 30.04 BMI Method:Stated Exam Exam Patient acknowledged, consented, and participated in this virtual visit which was conducted using real time audio/video Vital Signs Date Time Temp Pulse Resp B/P (MAP) Pulse Ox O2 Delivery O2 Flow Rate FiO2 01/10/23 06:00 101 17 96/51 (66) 98 Room Air 01/10/23 05:00 112 22 121/75 (90) 100 Room Air 01/10/23 04:00 36.6 01/10/23 04:00 101 15 106/63 (77) 98 Room Air 01/10/23 04:00 94 Room Air 01/10/23 03:00 97 14 107/66 (80) 97 Room Air 01/10/23 02:00 106 17 126/85 (99) 100 Room Air 01/10/23 01:00 92 15 96/59 (71) 100 Room Air 01/10/23 01:00 92 01/10/23 00:00 36.4 01/10/23 00:00 90 103/62 (76) 100 Room Air 01/09/23 23:59 94 Room Air 01/09/23 23:00 89 13 108/75 (86) 100 Room Air 01/09/23 22:00 89 111/73 (86) 100 Room Air 01/09/23 20:15 91 13 101/64 (76) 100 Room Air 01/09/23 20:00 95 Room Air 01/09/23 20:00 36.7 01/09/23 19:00 87 01/09/23 19:00 87 13 97/64 (75) 100 Room Air 01/09/23 18:00 96 15 89/58 (68) 99 Room Air 01/09/23 17:57 35.7 01/09/23 17:45 98 15 95/47 (63) 100 Room Air 01/09/23 17:30 103 22 88/49 (62) 100 Room Air 01/09/23 17:15 133 38 104/62 (76) 100 Room Air 01/09/23 17:00 118 34 99/64 (76) 100 Room Air 01/09/23 16:40 100 Room Air 01/09/23 16:17 36.3 138 41 118/69 (85) 100 Room Air 01/09/23 16:15 35.2 128 28 107/71 100 Room Air 01/09/23 13:27 35.7 01/09/23 12:28 35.7 01/09/23 11:36 35.7 135 32 123/90 (101) 99 Room Air I & O 01/10/23 07:00 Intake Total 4700 ml Output Total 1000 ml Balance 3700 ml Height & Weight Height: 5'9.00" Weight: 255lbs. 0oz. 115.675927on; 30.04 BMI Method:Stated General Appearance: No Apparent Distress, Chronically ill, Obese (See free text ), Other (asleep) HEENT: TMs Normal Respiratory: Lungs Clear, Normal Breath Sounds Cardiovascular: Regular Rate, Rhythm Capillary Refill: Less Than 3 Seconds Peripheral Pulses: 1+ Dorsalis Pedis (R), 1+ Left Dors-Pedis (L) Gastrointestinal: non tender, soft Neurologic/Psychiatric: Alert, Oriented x3 (See free text.) Results Lab Laboratory Tests 01/09/23 12:00 01/09/23 12:02 01/09/23 13:09 01/09/23 17:23 01/09/23 22:05 01/10/23 02:30 Assessment/Plan Assessment/Plan See free text. Critical Care: Critically Ill Patient ALESIA SULLIVAN MD January 10, 2023 09:35
--- NOTE | 2023-01-10 11:08 | Progress Note - Hospitalist ---
Subjective HPI/CC On Admission Date Seen by Provider: January 10, 2023 Time Seen by Provider: 10:00 CC: DKA HPI: This is a 22yoWF type 1 DM who presented to the ER with N/V and malfunction of her insulin pump line and dx with DKA. She has multiple hospital stays due to DKA. Recently she experienced demise at 29 weeks following DKA which required transfer to [place] then transferred to where she lost the baby. She remains very emotional labile and required Precedex. Subjective/Events-last exam Doing better Improved overall Hco3 near normal No N/V Advancing diet Review of Systems General: Fatigue, Malaise Objective Exam Vital Signs Vital Signs Date Time Temp Pulse Resp B/P (MAP) Pulse Ox O2 Delivery O2 Flow Rate FiO2 01/10/23 19:47 36.4 01/10/23 19:35 100 Room Air 01/10/23 19:00 96 22 125/80 (95) Capillary Refill : Less Than 3 Seconds General Appearance: No Apparent Distress, WD/WN, Chronically ill Respiratory: Lungs Clear, Normal Breath Sounds Cardiovascular: Regular Rate, Rhythm Neurologic/Psychiatric: Alert, Oriented x3, No Motor/Sensory Deficits, Normal Mood/Affect Results/Procedures Lab Laboratory Tests 01/09/23 22:05 01/10/23 02:30 01/10/23 08:05 01/10/23 17:40 Patient resulted labs reviewed. Assessment/Plan Assessment and Plan Assess & Plan/Chief Complaint Assessment: DKA GABE Plan: IVF insulin drip Critical Care Critically Ill Patient JOSIE SMYTH DO January 10, 2023 11:08
[2023-01-10] MEDS ORDERED: IBUP-2473 PO (11:34)
[2023-01-10 11:40] LABS: CALCIUM 7.5 MG/DL (8.5-10.1); CREATININE SERUM 0.86 MG/DL (0.60-1.30); POTASSIUM 3.6 MMOL/L (3.6-5.0)
[2023-01-10] MEDS: BENZOCAINE LOZENGES 1 EACH LOZENGE PO PRN ×2 (13:35→19:46)
[2023-01-10] MEDS: ENOXAPARIN 40 MG/0.4 ML (LOVENOX) SYR SC SCH (16:00)
[2023-01-10 17:58] LABS: POTASSIUM 3.6 MMOL/L (3.6-5.0)
[2023-01-10 17:59] LABS: CALCIUM 7.3 MG/DL (8.5-10.1)
[2023-01-10 18:03] LABS: CREATININE SERUM 0.76 MG/DL (0.60-1.30)
[2023-01-10] MEDS: ONDANSETRON 4 MG/2 ML (SDV) Z0FRAN IV PRN ×2 (18:26→22:29)
[2023-01-11] MEDS: 1/2 NS IV SOLUTION 1,000 ML IV SCH ×5 (00:13→23:38)
[2023-01-11] MEDS: D5 1/2 NS 1000 ML IV SOLUTION 1,000 ML IV SCH ×3 (01:30→10:07)
[2023-01-11] MEDS: POTASSIUM CL 10MEQ/50ML IVPB 50 ML IV SCH ×5 (01:30→10:07)
[2023-01-11] MEDS: morphine INJ 4 MG/ML 1 ML (VIAL/SYRINGE) IV PRN ×7 (01:33→22:57)
[2023-01-11 03:39] LABS: BASOPHILS % (AUTO) 0 % (0-10); EOSINOPHILS % (AUTO) 1 % (0-10); HEMATOCRIT 28 % (35-52); HEMOGLOBIN 8.8 g/dL (11.5-16.0); LYMPHOCYTES % (AUTO) 37 % (12-44); MEAN CORPUSCULAR HEMOGLOBIN 24 pg (25-34); MEAN CORPUSCULAR HGB CONC 32 g/dL (32-36); MEAN CORPUSCULAR VOLUME 75 fL (80-99); MEAN PLATELET VOLUME 10.8 fL (9.0-12.2); MONOCYTES # (AUTO) 0.8 10^3/uL (0.0-1.0); MONOCYTES % (AUTO) 9 % (0-12); NEUTROPHILS # (AUTO) 4.3 10^3/uL (1.8-7.8); NEUTROPHILS % (AUTO) 53 % (42-75); PLATELET COUNT 262 10^3/uL (130-400); WHITE BLOOD COUNT 8.1 10^3/uL (4.3-11.0)
[2023-01-11 03:52] LABS: ALBUMIN 2.6 GM/DL (3.2-4.5); POTASSIUM 3.9 MMOL/L (3.6-5.0)
[2023-01-11 03:53] LABS: CALCIUM 7.4 MG/DL (8.5-10.1)
[2023-01-11 03:55] LABS: TOTAL PROTEIN 4.9 GM/DL (6.4-8.2)
[2023-01-11 03:56] LABS: BILIRUBIN,TOTAL 0.2 MG/DL (0.1-1.0)
[2023-01-11 03:58] LABS: CREATININE SERUM 0.74 MG/DL (0.60-1.30)
[2023-01-11 04:01] LABS: MAGNESIUM 1.8 MG/DL (1.6-2.4)
[2023-01-11] MEDS: MAGNESIUM 1 GM/100 ML IVPB 100 ML IV SCH ×2 (04:06→04:19)
[2023-01-11] MEDS: KCL 20 MEQ TAB (K-DUR) PO SCH (04:06)
[2023-01-11] MEDS ORDERED: KCL 20 MEQ TAB (K-DUR) PO ONE (08:00)
[2023-01-11] MEDS: PANTOPRAZOLE 40 MG (PROTONIX) VIAL IV SCH (09:07)
--- NOTE | 2023-01-11 10:52 | Tele-ICU Progress Note ---
Subjective Date Seen by a Provider: January 11, 2023 Time Seen by a Provider: 10:52 Subjective/Events-last exam (Tele-ICU Physician , Progress Note ) Service provided via interactive audio and video telecommunications E-CARE system to a patient admitted to ICU bed in [facility]. Patient is seen today due to persistent need of ICU care Available chart/ vitals / labs / Images reviewed Video assessment done using teleICU camera, rest of exam as per RN Discussed with RN Events overnight : Afebrile hemodynamically stable Respiratory - I/O = Drips: Pressors- no Hospital course: (01/09) 22F Admitted with DKA. A/P DKA -precipitated by presumed malfunctioning of pump -No suspicious for new infection *Insulin drip - noted intermittent resolution of acidosis, normalized AG - ? can resume insulin pump vs start on long acting insulin Tx Gastroparesis will stop IVF if eating ok Lines : (01/09) . Central line placed for poor venous access , (Central Line Necessity Reviewed) Jeffries: void OG: Nutrition: po Analgesia: Anxiety/ delirium VTE Prophylaxis: harjit Stress Ulcer Prophylaxis: na, ppi Plans in collaboration with bedside consultants and IM MDs. Discussed with RN to reach out if any questions or concerns Case and care daily discussed on multidisciplinary rounds ( RN, PharmD, Alarm Operator , Respiratory Therapy, farmworker field crop ) A total of _20 minutes of critical care time was devoted to this patient today, required to treat and/or prevent further deterioration of critical care condition ( as above ) . I am remotely monitoring this patient from another state. I am unable to do the bedside exam, and history/physical and pertinent information is taken from other notes in the computer and bedside staff. Sepsis Event Evaluation Height, Weight, BMI Height: 5'9.00" Weight: 255lbs. 0oz. 115.033060nx; 33.56 BMI Method:Stated Exam Exam Patient acknowledged, consented, and participated in this virtual visit which was conducted using real time audio/video Vital Signs Date Time Temp Pulse Resp B/P (MAP) Pulse Ox O2 Delivery O2 Flow Rate FiO2 01/11/23 10:00 111 19 96/51 (63) 98 Room Air 01/11/23 09:00 112 136/88 (102) 100 Room Air 01/11/23 08:50 95 Room Air 01/11/23 08:00 120 21 143/91 (101) 100 Room Air 01/11/23 08:00 37.2 01/11/23 07:00 103 21 129/92 (99) 100 Room Air 01/11/23 07:00 95 01/11/23 06:00 101 14 117/73 (88) 100 Room Air 01/11/23 05:00 86 21 95/58 (70) 98 Room Air 01/11/23 04:00 93 14 111/68 (82) 98 Room Air 01/11/23 03:30 99 Room Air 01/11/23 03:20 36.8 Room Air 01/11/23 03:00 96 14 99/54 (69) 98 Room Air 01/11/23 02:00 97 15 108/69 (82) 99 Room Air 01/11/23 01:00 106 01/11/23 01:00 99 15 151/96 (114) 100 Room Air 01/11/23 00:00 94 15 105/64 (78) 98 Room Air 01/10/23 23:30 37.4 01/10/23 23:30 98 Room Air 01/10/23 23:00 102 22 104/73 (83) 100 Room Air 01/10/23 22:00 115 22 138/100 (113) 100 Room Air 01/10/23 21:00 91 15 106/74 (85) 98 Room Air 01/10/23 20:00 108 16 125/80 (95) 99 Room Air 01/10/23 19:47 36.4 01/10/23 19:35 100 Room Air 01/10/23 19:00 36.5 96 22 125/80 (95) 100 Room Air 01/10/23 19:00 119 01/10/23 18:00 110 149/96 (113) 90 Room Air 01/10/23 17:00 90 104/77 (86) 98 Room Air 01/10/23 16:04 97 Room Air 01/10/23 16:00 98 16 118/80 (93) 100 Room Air 01/10/23 15:37 36.1 01/10/23 15:00 97 16 107/64 (78) 97 Room Air 01/10/23 14:00 100 99/60 (73) 98 Room Air 01/10/23 13:00 114 120/77 (91) 100 Room Air 01/10/23 12:06 115 01/10/23 12:00 110 138/113 (121) 100 Room Air 01/10/23 12:00 97 Room Air 01/10/23 11:49 36.4 01/10/23 11:00 113 158/93 (116) Room Air I & O 01/11/23 07:00 Intake Total 5350 ml Output Total 4850 ml Balance 500 ml Height & Weight Height: 5'9.00" Weight: 255lbs. 0oz. 115.572643ao; 33.56 BMI Method:Stated General Appearance: No Apparent Distress, WD/WN, Chronically ill HEENT: TMs Normal Respiratory: Lungs Clear, Normal Breath Sounds Cardiovascular: Regular Rate, Rhythm Capillary Refill: Less Than 3 Seconds Peripheral Pulses: 1+ Dorsalis Pedis (R), 1+ Left Dors-Pedis (L) Gastrointestinal: non tender, soft Neurologic/Psychiatric: Alert, Oriented x3, No Motor/Sensory Deficits, Normal Mood/Affect Results Lab Laboratory Tests 01/09/23 12:00 01/09/23 12:02 01/09/23 13:09 01/09/23 17:23 01/09/23 22:05 01/10/23 02:30 01/10/23 08:05 01/10/23 17:40 01/11/23 03:25 Assessment/Plan Assessment/Plan 1 FRANTZ ENCISO MD January 11, 2023 10:52
[2023-01-11] MEDS ORDERED: IBUPROFEN TABLET 200 MG TAB PO PRN (11:00)
[2023-01-11] MEDS ORDERED: ACETAMINOPHEN 500 MG TAB (TYLENOL) PO PRN (11:00)
--- NOTE | 2023-01-11 11:02 | Progress Note - Hospitalist ---
Subjective HPI/CC On Admission Date Seen by Provider: January 11, 2023 Time Seen by Provider: 10:45 CC: DKA HPI: This is a 22yoWF type 1 DM who presented to the ER with N/V and malfunction of her insulin pump line and dx with DKA. She has multiple hospital stays due to DKA. Recently she experienced demise at 29 weeks following DKA which required transfer to [place] then transferred to where she lost the baby. She remains very emotional labile and required Precedex. Subjective/Events-last exam Doing well Moving to 4 floor Insulin pump dysfunction noted Objective Exam Vital Signs Vital Signs Date Time Temp Pulse Resp B/P (MAP) Pulse Ox O2 Delivery O2 Flow Rate FiO2 01/12/23 04:00 36.0 83 18 136/78 (97) 98 Room Air Capillary Refill : Less Than 3 Seconds General Appearance: No Apparent Distress, WD/WN, Chronically ill Respiratory: Lungs Clear, Normal Breath Sounds Cardiovascular: Regular Rate, Rhythm Neurologic/Psychiatric: Alert, Oriented x3, Depressed Affect Results/Procedures Lab Patient resulted labs reviewed. Assessment/Plan Assessment and Plan Assess & Plan/Chief Complaint Assessment: DKA GABE Plan: Move to [facility] Critical Care Critically Ill Patient JOSIE SMYTH DO January 11, 2023 11:02
[2023-01-11] MEDS: ONDANSETRON 4 MG/2 ML (SDV) Z0FRAN IV PRN ×2 (11:18→22:38)
--- NOTE | 2023-01-11 12:47 | Physical Therapy Progress Note ---
Therapy Progress Note Patient declined skilled PT stating she is up independently and doesn't need it. RN confirms. No skilled PT indicated. ANJEL RAHMAN PT January 11, 2023 12:47
[2023-01-11] MEDS: ENOXAPARIN 40 MG/0.4 ML (LOVENOX) SYR SC SCH (16:44)
[2023-01-11] MEDS: inSUlin ASPART (NovoLOG) 1 UNIT/0.01 ML (CHARGE PER UNIT) SC SCH ×2 (16:44→21:03)
[2023-01-11 20:00] VITALS: BP 139/63
[2023-01-11 23:00] VITALS: BP 135/69
[2023-01-12] MEDS: morphine INJ 4 MG/ML 1 ML (VIAL/SYRINGE) IV PRN ×3 (01:08→08:21)
[2023-01-12 04:00] VITALS: BP 136/78
[2023-01-12 05:19] LABS: BASOPHILS % (AUTO) 0 % (0-10); EOSINOPHILS % (AUTO) 1 % (0-10); HEMATOCRIT 27 % (35-52); HEMOGLOBIN 8.8 g/dL (11.5-16.0); LYMPHOCYTES % (AUTO) 62 % (12-44); MEAN CORPUSCULAR HEMOGLOBIN 24 pg (25-34); MEAN CORPUSCULAR HGB CONC 32 g/dL (32-36); MEAN CORPUSCULAR VOLUME 75 fL (80-99); MEAN PLATELET VOLUME 10.8 fL (9.0-12.2); MONOCYTES # (AUTO) 0.5 10^3/uL (0.0-1.0); MONOCYTES % (AUTO) 10 % (0-12); NEUTROPHILS # (AUTO) 1.3 10^3/uL (1.8-7.8); NEUTROPHILS % (AUTO) 27 % (42-75); PLATELET COUNT 238 10^3/uL (130-400); WHITE BLOOD COUNT 4.9 10^3/uL (4.3-11.0)
[2023-01-12 05:39] LABS: ALANINE AMINOTRANSFERASE 27 U/L (0-55); ALBUMIN 2.5 GM/DL (3.2-4.5); ALKALINE PHOSPHATASE 109 U/L (40-136); BILIRUBIN,TOTAL 0.2 MG/DL (0.1-1.0); BUN/CREATININE RATIO 3; CALCIUM 7.6 MG/DL (8.5-10.1); CARBON DIOXIDE 23 MMOL/L (21-32); CHLORIDE 107 MMOL/L (98-107); CREATININE SERUM 0.67 MG/DL (0.60-1.30); GFR ESTIMATED 128; GLUCOSE 205 MG/DL (70-105); MAGNESIUM 1.5 MG/DL (1.6-2.4); SODIUM 137 MMOL/L (135-145); TOTAL PROTEIN 5.1 GM/DL (6.4-8.2)
[2023-01-12] MEDS: inSUlin ASPART (NovoLOG) 1 UNIT/0.01 ML (CHARGE PER UNIT) SC SCH ×2 (06:53→11:07)
[2023-01-12 08:17] VITALS: BP 159/87
[2023-01-12] MEDS: PANTOPRAZOLE 40 MG (PROTONIX) VIAL IV SCH (08:21)
[2023-01-12] MEDS ORDERED: INSU100I14 SQ (10:38)
[2023-01-12] MEDS ORDERED: INSU100I10 SQ (10:38)
--- NOTE | 2023-01-12 10:38 | Discharge Summary ---
Discharge Summary Hospital Course Was the Problem List Reviewed?: Yes Problems/Dx: (1) DKA (diabetic ketoacidosis) Status: Resolved Qualifiers: Qualified Codes: E10.10 - Type 1 diabetes mellitus with ketoacidosis without coma (2) Nausea and vomiting Status: Resolved Qualifiers: Qualified Codes: R11.2 - Nausea with vomiting, unspecified (3) Anxiety Status: Chronic Hospital Course Date of Admission: January 09, 2023 at 16:15 Admission Diagnosis : Family Physician/Provider: Carlos Lyn DO Date of Discharge: 01/12/23 Discharge Diagnosis: [ ] Hospital Course: Standard course after she was admitted to ICU placed on insulin drip for DKA. No events occurred and she continued to improve and was DC in improved condition Labs and Pending Lab Test: Laboratory Tests 01/11/23 11:06: Glucometer 256H 01/11/23 12:51: Glucometer 177H 01/11/23 13:42: Glucometer 203H 01/11/23 14:57: Glucometer 214H 01/11/23 15:41: Glucometer 295H 01/11/23 20:53: Glucometer 232H 01/12/23 01:01: Glucometer 175H 01/12/23 05:10: White Blood Count 4.9, Red Blood Count 3.68L, Hemoglobin 8.8L, Hematocrit 27L, Mean Corpuscular Volume 75L, Mean Corpuscular Hemoglobin 24L, Mean Corpuscular Hemoglobin Concent 32, Red Cell Distribution Width 16.2H, Platelet Count 238, Mean Platelet Volume 10.8, Immature Granulocyte % (Auto) 0, Neutrophils (%) (Auto) 27L, Lymphocytes (%) (Auto) 62H, Monocytes (%) (Auto) 10, Eosinophils (%) (Auto) 1, Basophils (%) (Auto) 0, Neutrophils # (Auto) 1.3L, Lymphocytes # (Auto) 3.0, Monocytes # (Auto) 0.5, Eosinophils # (Auto) 0.0, Basophils # (Auto) 0.0, Immature Granulocyte # (Auto) 0.0, Sodium Level 137, Potassium Level 4.0, Chloride Level 107, Carbon Dioxide Level 23, Anion Gap 7, Blood Urea Nitrogen < 2L, Creatinine 0.67, Estimat Glomerular Filtration Rate 128, BUN/Creatinine Ratio 3, Glucose Level 205H, Calcium Level 7.6L, Corrected Calcium 8.8, Magnesium Level 1.5L, Total Bilirubin 0.2, Aspartate Amino Transf (AST/SGOT) 95H , Alanine Aminotransferase (ALT/SGPT) 27, Alkaline Phosphatase 109, Total Protein 5.1L, Albumin 2.5L 01/12/23 06:44: Glucometer 159H Microbiology 01/09/23 MRSA Screen - Final, Complete No growth 01/09/23 Urine Culture - Final, Complete Growth Consistent Home Meds Active Reported Ibuprofen 200 Mg Tablet 400 Mg PO Q8H PRN Insulin Lispro 100 Unit/Ml Vial Units SC UD USES VIA PUMP Tylenol Extra Strength (Acetaminophen) 500 Mg Tablet 1,000 Mg PO Q8H PRN Assessment/Pt Instructions pcp 1 week Discharge Planning: <30 minutes discharge planning Discharge Instructions Discharge Diet: ADA Diet Discharge Physical Examination Vital Signs Vital Signs Date Time Temp Pulse Resp B/P (MAP) Pulse Ox O2 Delivery O2 Flow Rate FiO2 01/12/23 08:17 36.4 104 20 159/87 (111) 96 Room Air General Appearance: No Apparent Distress, WD/WN Allergies: Coded Allergies: bismuth subsalicylate (Verified Allergy, Unknown, 08/29/22) latex (Unverified Allergy, Unknown, 01/09/23) Discharge Summary Date of Admission January 09, 2023 at 16:15 Date of Discharge Discharge Date: January 12, 2023 Admission Diagnosis Assessment: DKA GABE Recent 29 week demise Emotional labile status Plan: Insulin drip Monitor closely Discharge Diagnosis Assessment: DKA GABE Plan: Move to JOSIE SMYTH DO January 12, 2023 10:38
[2023-01-12 12:00] VITALS: BP 130/77
[2023-01-12] MEDS: 1/2 NS IV SOLUTION 1,000 ML IV SCH (12:01)
== END 2023-01-12 13:20 | disposition home or self-care (01) | DRG 638 ==
LOC: ER 11:10 → EDUNIT# 12:02 → ICU 16:15 → 4TH 01-11 16:43
PROVIDERS: ADMIT Internal Medicine; ATTEND Internal Medicine
PROC: 02HV33Z Insertion of Infusion Device into Superior Vena Cava, Percutaneous Approach (ICD-10-PCS; principal; 2023-01-09)
DX: E10.10 Type 1 diabetes mellitus with ketoacidosis without coma (principal); N17.9 Acute kidney failure, unspecified; F41.9 Anxiety disorder, unspecified; Z79.4 Long term (current) use of insulin; F32.A Depression, unspecified; R45.86 Emotional lability; E10.43 Type 1 diabetes mellitus with diabetic autonomic (poly)neuropathy; K31.84 Gastroparesis
CPT/HCPCS: 36415; 71045; 80048; 80053; 80306; 81000; 82010; 82947; 83036; 83735; 84100; 84703; 85007; 85025; 85027; 87081; 87088; 93041

== ENCOUNTER 2023-01-18 18:09 | Inpatient (IN) | payer BC, MEDICAID ==
[~2023-01-18] VITALS: Ht 175.3 cm; Wt 94.5 kg
[2023-01-18] MEDS ORDERED: ONDANSETRON 4 MG/2 ML (SDV) Z0FRAN IVP ONE ×2 (18:30→19:00)
[2023-01-18] MEDS ORDERED: NS IV 1000 ML 1,000 ML IV SCH (18:30)
--- NOTE | 2023-01-18 18:30 | ED General ---
General Chief Complaint: Glucose Problems Stated Complaint: OVERHEATED/ELEV BLOOD SUGAR Nursing Triage Note: STATES SHE BECAME OVERHEATED TODAY AND SINCE THEN HER BLOOD SUGARS HAVE BEEN HIGH AND IS NOT READING A NUMBER. TOOK 13UNITS HUMUALOG 30 MINS AGO. Source of Information: Patient Exam Limitations: No Limitations (CAN GRANT) History of Present Illness Date Seen by Provider: January 18, 2023 Time Seen by Provider: 18:27 Initial Comments Patient is a 22-year-old female who presents to ED for exhaustion and elevated blood sugar. She states today she has been riding in her car which has no air conditioning. She states over the morning and afternoon she started to feel weak and fatigued. States she started feeling warm. She checked her blood sugar about 1 hour ago which read over 600. She took 13 units of insulin about 45 minutes ago. She reports nausea without vomiting. She states her back hurts. She reports that when her blood sugar increases her back typically hurts. She states she feels anxious. She feels dehydrated and requesting IV fluids. She was recently admitted earlier this month to the hospital and was discharged last weekend. She reports diarrhea over the past 2 days without any blood or mucus. Denies of any current abdominal pain, chest pain, cough, shortness of breath, headache or dizziness, fever, sore throat, ear pain. She is currently on her menstrual cycle. (CAN GRANT) Allergies and Home Medications Allergies Coded Allergies: bismuth subsalicylate (Verified Allergy, Unknown, 08/29/22) latex (Unverified Allergy, Unknown, 01/09/23) Patient Home Medication List Home Medication List Reviewed: Yes (CAN GRANT) Acetaminophen (Tylenol Extra Strength) 500 Mg Tablet, 1,000 MG PO Q8H PRN for PAIN-MILD (1-4), (Reported) Entered as Reported by: CLOT BOURNE on 02/16/22 1100 Ibuprofen (Ibuprofen) 200 Mg Tablet, 400 MG PO Q8H PRN for PAIN-MILD (1-4), (Reported) Entered as Reported by: COLT BOURNE on 01/10/23 1134 Insulin Aspart (Novolog Flexpen) 100 Unit/Ml (3 Ml) Solution, 5 UNITS SQ AC Prescribed by: JOSIE SMYTH on 01/12/23 1038 Insulin Glargine,Hum.rec.anlog (Lantus Solostar) 100 Unit/Ml (3 Ml) Insuln.pen, 20 UNIT SQ BID Prescribed by: JOSIE SMYTH on 01/12/23 1038 Insulin Lispro (Insulin Lispro) 100 Unit/Ml Vial, UNITS SC UD, (Reported) Entered as Reported by: COLT BOURNE on 08/17/22 1223 Review of Systems Review of Systems Constitutional: No chills, No diaphoresis, No fever; malaise, weakness EENTM: No ear pain, No blurred vision, No double vision, No hoarseness, No mouth pain, No mouth swelling Respiratory: No cough, No dyspnea on exertion Cardiovascular: No chest pain, No edema Gastrointestinal: No abdominal pain; diarrhea, nausea; No vomiting Genitourinary: No decreased output, No discharge, No dysuria, No frequency Musculoskeletal: No back pain, No joint pain Skin: No change in color, No change in hair/nails (CAN GRANT) All Other Systems Reviewed Negative Unless Noted: Yes (CAN GRANT) Past Mmwphsw-Vplezi-Xfhbkt Hx Patient Social History Tobacco Use?: Yes Use of E-Cig and/or Vaping dev: Yes E-Cig or Vaping type used: Nicotine Substance use?: No Alcohol Use?: No (CAN GRANT) Immunizations Up To Date Tetanus Booster (TDap): Less than 5yrs PED Vaccines UTD: Yes First/Initial COVID19 Vaccinat: APR 2021 Second COVID19 Vaccination [place]: MAY 2021 Third COVID19 Vaccination Date: APR 2021 (CAN GRANT) Seasonal Allergies Seasonal Allergies: No (CAN GRANT) Past Medical History Surgery/Hospitalization HX: MULTIPLE HOSPITALIZATIONS FOR DKA; HAD STILLBORN ON DECEMBER 07 @ [facility] Surgeries: No Respiratory: No Currently Using CPAP: No Currently Using BIPAP: No Cardiac: Yes (TACHYCARDIA) Palpitations Neurological: No Reproductive Disorders: No Female Reproductive Disorders: Denies Sexually Transmitted Disease: No HIV/AIDS: No Genitourinary: Yes Bladder Infection Gastrointestinal: Yes (CANNABIS HYPEREMESIS; CHRONIC 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 DX AGE 12) Diabetes, Insulin dep HEENT: No Loss of Vision: Denies Hearing Impairment: Denies Cancer: No Psychosocial: Yes Anxiety, Depression Integumentary: No Blood Disorders: No Adverse Reaction/Blood Tranf: No (CAN GRANT) Family Medical History No Pertinent Family Hx MULTITUDE OF VISITS, MANY FOR DKA/DIABETES RELATED ISSUES ALSO MULTIPLE VISITS FOR CHRONIC NAUSEA/VOMITING AND ABDOMINAL PAIN RELATED TO MARIJANA USE/CANNIBIS HYPEREMESIS. (CAN GRANT) Physical Exam Vital Signs Vital Signs - First Documented 01/18/23 18:14 Temp 36.9 Pulse 118 Resp 16 B/P (MAP) 152/83 (106) Pulse Ox 100 O2 Delivery Room Air (LADONNA RANGEL DO) Vital Signs Capillary Refill : Less Than 3 Seconds (CAN GRANT) Height, Weight, BMI Height: 5'9.00" Weight: 255lbs. 0oz. 115.206016co; 28.00 BMI Method:Stated General Appearance: No Apparent Distress, WD/WN Eyes: Bilateral Eye Normal Inspection, Bilateral Eye PERRL, Bilateral Eye Abnormal EOM HEENT: PERRL/EOMI, TMs Normal, Normal ENT Inspection, Pharynx Normal Neck: Full Range of Motion, Normal Inspection, Non Tender, Supple Respiratory: Chest Non Tender, Lungs Clear, Normal Breath Sounds, No Accessory Muscle Use, No Respiratory Distress Cardiovascular: Regular Rate, Rhythm, No Edema, No Gallop, No JVD Gastrointestinal: Normal Bowel Sounds, No Organomegaly, No Pulsatile Mass, Non Tender, Soft Back: Normal Inspection, No CVA Tenderness, No Vertebral Tenderness Neurologic/Psychiatric: Alert, Oriented x3, No Motor/Sensory Deficits, Normal Mood/Affect, engineer II-XII Norm as Tested Skin: Normal Color, Warm/Dry (CAN GRANT) Focused Exam Lactate Level 01/18/23 18:45: Lactic Acid Level 1.21 (LADONNA RANGEL DO) Lactic Acid Level Laboratory Tests Test 01/18/23 18:45 Lactic Acid Level 1.21 MMOL/L (0.50-2.00) (LADONNA RANGEL DO) Procedures/Interventions Date of ETT Placement: Feb 18, 2021 Time of ETT Placement: 1432 (CAN GRANT) Progress/Results/Core Measures Suspected Sepsis SIRS Temperature: Pulse: 118 Respiratory Rate: 16 Laboratory Tests 01/18/23 18:45: White Blood Count 7.2 Blood Pressure 152 /83 Mean: 106 01/18/23 18:45: Lactic Acid Level 1.21 Laboratory Tests 01/18/23 18:45: Creatinine 1.16, Platelet Count 404H, Total Bilirubin 0.3 (CAN GRANT) Results/Orders Lab Results Laboratory Tests Test 01/18/23 18:20 01/18/23 18:45 01/18/23 18:47 01/18/23 19:50 Range/Units Glucometer 486 *H 70-110 MG/DL White Blood Count 7.2 4.3-11.0 10^3/uL Red Blood Count 4.67 3.80-5.11 10^6/uL Hemoglobin 11.1 #L 11.5-16.0 g/dL Hematocrit 35 35-52 % Mean Corpuscular Volume 76 L 80-99 fL Mean Corpuscular Hemoglobin 24 L 25-34 pg Mean Corpuscular Hemoglobin Concent 31 L 32-36 g/dL Red Cell Distribution Width 17.0 H 10.0-14.5 % Platelet Count 404 H 130-400 10^3/uL Mean Platelet Volume 10.8 9.0-12.2 fL Immature Granulocyte % (Auto) 1 % Neutrophils (%) (Auto) 58 42-75 % Lymphocytes (%) (Auto) 31 12-44 % Monocytes (%) (Auto) 9 0-12 % Eosinophils (%) (Auto) 0 0-10 % Basophils (%) (Auto) 1 0-10 % Neutrophils # (Auto) 4.2 1.8-7.8 10^3/uL Lymphocytes # (Auto) 2.3 1.0-4.0 10^3/uL Monocytes # (Auto) 0.7 0.0-1.0 10^3/uL Eosinophils # (Auto) 0.0 0.0-0.3 10^3/uL Basophils # (Auto) 0.1 0.0-0.1 10^3/uL Immature Granulocyte # (Auto) 0.1 0.0-0.1 10^3/uL Sodium Level 131 L 135-145 MMOL/L Potassium Level 4.8 3.6-5.0 MMOL/L Chloride Level 104 98-107 MMOL/L Carbon Dioxide Level < 5 *L 21-32 MMOL/L Anion Gap 22 H 5-14 MMOL/L Blood Urea Nitrogen 6 L 7-18 MG/DL Creatinine 1.16 0.60-1.30 MG/DL Estimat Glomerular Filtration Rate 69 BUN/Creatinine Ratio 5 Glucose Level 561 *H 70-105 MG/DL Lactic Acid Level 1.21 0.50-2.00 MMOL/L Calcium Level 8.5 8.5-10.1 MG/DL Corrected Calcium 8.7 8.5-10.1 MG/DL Magnesium Level 1.8 1.6-2.4 MG/DL Total Bilirubin 0.3 0.1-1.0 MG/DL Aspartate Amino Transf (AST/SGOT) 16 5-34 U/L Alanine Aminotransferase (ALT/SGPT) 24 0-55 U/L Alkaline Phosphatase 161 H 40-136 U/L Total Protein 7.3 6.4-8.2 GM/DL Albumin 3.7 3.2-4.5 GM/DL Amylase Level 48 25-125 U/L Lipase 44 8-78 U/L Beta-Hydroxybutyrate (Chem panel) 9.80 H 0.00-0.27 MMOL/L Serum Test, Qualitative NEGATIVE NEGATIVE Urine Color YELLOW Urine Clarity CLEAR Urine pH 5.5 5-9 Urine Specific [place] 1.025 H 1.016-1.022 Urine Protein NEGATIVE NEGATIVE Urine Glucose (UA) 3+ H NEGATIVE Urine Ketones 3+ H NEGATIVE Urine Nitrite NEGATIVE NEGATIVE Urine Bilirubin NEGATIVE NEGATIVE Urine Urobilinogen 0.2 < = 1.0 MG/DL Urine Leukocyte Esterase NEGATIVE NEGATIVE Urine RBC (Auto) 2+ H NEGATIVE Urine RBC 0-2 /HPF Urine WBC NONE /HPF Urine Squamous Epithelial Cells 0-2 /HPF Urine Crystals NONE /LPF Urine Bacteria NEGATIVE /HPF Urine Casts NONE /LPF Urine Mucus SMALL H /LPF Urine Culture Indicated NO Urine Opiates Screen NEGATIVE NEGATIVE Urine Oxycodone Screen NEGATIVE NEGATIVE Urine Methadone Screen NEGATIVE NEGATIVE Urine Propoxyphene Screen NEGATIVE NEGATIVE Urine Barbiturates Screen NEGATIVE NEGATIVE Ur Tricyclic Antidepressants Screen NEGATIVE NEGATIVE Urine Phencyclidine Screen NEGATIVE NEGATIVE Urine Amphetamines Screen NEGATIVE NEGATIVE Urine Methamphetamines Screen NEGATIVE NEGATIVE Urine Benzodiazepines Screen NEGATIVE NEGATIVE Urine Cocaine Screen NEGATIVE NEGATIVE Urine Cannabinoids Screen NEGATIVE NEGATIVE Blood Gas Puncture Site LR Blood Gas Patient Temperature 36.7 Arterial Blood pH 7.18 *L 7.37-7.43 Arterial Blood Partial Pressure CO2 12 *L 35-45 MMHG Arterial Blood Partial Pressure O2 117 H 79-93 MMHG Arterial Blood HCO3 4 *L 23-27 MMOL/L Arterial Blood Total CO2 4.6 *L 21.0-31.0 MMOL/L Arterial Blood Oxygen Saturation 98 94-100 % Arterial Blood Base Excess -23.3 L -2.5-2.5 MMOL/L Ajit Test YES-POS Blood Gas Ventilator Setting NO Blood Gas Inspired Oxygen RA (JUAN CARLOSLADONNA K DO) My Orders Orders - JUAN CARLOS,LADONNA K DO Ed Iv/Invasive Line Start (01/18/23 18:19) Monitor-Rhythm Ecg Trace Only (01/18/23 18:19) Amylase (01/18/23 18:19) Cbc With Automated Diff (01/18/23 18:19) Comprehensive Metabolic Panel (01/18/23 18:19) Drug Screen Stat (Urine) (01/18/23 18:19) Hcg,Qualitative Serum (01/18/23 18:19) Lactic Acid Analyzer (01/18/23 18:19) Lipase (01/18/23 18:19) Magnesium (01/18/23 18:19) Ua Culture If Indicated (01/18/23 18:19) Ed Iv/Invasive Line Start (01/18/23 18:19) Ns Iv 1000 Ml (Sodium Chloride 0.9%) (01/18/23 18:30) (JUAN CARLOS,LADONNA K ) Medications Given in ED Current Medications Medications Dose Ordered Sig/Thierno Route Start Time Stop Time Status Last Admin Dose Admin Insulin Human Regular 10 unit ONCE ONCE IV 01/18/23 19:45 01/18/23 19:46 DC 01/18/23 20:12 10 UNIT Ketorolac Tromethamine 30 mg ONCE ONCE IVP 01/18/23 20:30 01/18/23 20:31 DC 01/18/23 20:32 30 MG Ondansetron HCl 4 mg ONCE ONCE IVP 01/18/23 18:30 01/18/23 18:31 DC 01/18/23 18:59 4 MG (JUAN CARLOS,LADONNA K DO) Vital Signs/I&O 01/18/23 01/18/23 18:14 20:39 Temp 36.9 36.0 Pulse 118 112 Resp 16 22 B/P (MAP) 152/83 (106) 144/82 Pulse Ox 100 100 O2 Delivery Room Air 01/19/23 00:00 Intake Total 1000 ml Balance 1000 ml (LADONNA RANGEL DO) Vital Signs/I&O Capillary Refill : Less Than 3 Seconds (CAN GRANT) Blood Pressure Mean: 106 Point of Care Testing Finger Stick Blood Glucose: 486 Blood Glucose Action Taken: Physician notified (CAN GRANT) Departure Communication (PCP) Patient with a history of DKA presents the ED with heat exhaustion, nausea and elevated blood sugar. Type I diabetic. States she overheated today while driving her car with no air conditioning. It was a hot day. She took her blood pressure that read over 600. 13 units 45 minutes upon arrival. She is tachyca rdic on arrival. Anxious. Nausea with back pain. She states her back hurts when her blood sugar is high. General lab work, urinalysis, drug screen. Denies any drug use. CBC with normal white blood count. Hemoglobin 11.1. Platelets 404. Chemistry showed sodium 131, carbon dioxide less than 5, anion gap of 22, blood sugar 561. Ketones protein in urine. Negative for . ABG shows pH 7.18, PCO2 of 12, bicarb of 4. Concerning for DKA. Patient was given 10 units of insulin. Patient will be started on insulin drip. Patient was given Zofran for vomiting. Started on a liter of fluid. Patient is tearful. Patient remained tachycardic. Patient will be admitted to the ICU. Discussed patient with Dr. Esposito who accept patient. DKA protocol. Zofran for nausea. She was given a dose of of pain medication for pain. No evidence of surgical abdomen. Drug screen unremarkable. (CAN GRANT) Impression Primary Impression: DKA (diabetic ketoacidosis) Disposition: ADMITTED INPATIENT Condition: Stable Admissions Decision to Admit Reason: Admit from ER (General) Decision to Admit/Date: January 18, 2023 Time/Decision to Admit Time: 19:41 (CAN GRANT) Departure-Patient Inst. Referrals: COLT LAMBERT DO (PCP/Family) Primary Care Physician ATTENDING PHYSICIAN NOTE: I WAS PHYSICALLY PRESENT ER PHYSICIAN, BUT I WAS NOT INVOLVED IN ANY DECISION MAKING OR ANY CARE OF THIS PATIENT, AND I AM NOT COLLABORATING PHYSICIAN. (LADONNA RANGEL DO) CAN GRANT January 18, 2023 18:30 LADONNA RANGEL DO January 19, 2023 01:05
[2023-01-18] MEDS ORDERED: fentaNYL INJ 100 MCG/2 ML AMP IVP STA (18:49)
[2023-01-18 18:53] LABS: EOSINOPHILS % (AUTO) 0 % (0-10); HEMATOCRIT 35 % (35-52); HEMOGLOBIN 11.1 g/dL (11.5-16.0); LYMPHOCYTES % (AUTO) 31 % (12-44); MEAN CORPUSCULAR HEMOGLOBIN 24 pg (25-34); MEAN CORPUSCULAR HGB CONC 31 g/dL (32-36); MEAN CORPUSCULAR VOLUME 76 fL (80-99); MEAN PLATELET VOLUME 10.8 fL (9.0-12.2); MONOCYTES % (AUTO) 9 % (0-12); NEUTROPHILS % (AUTO) 58 % (42-75); PLATELET COUNT 404 10^3/uL (130-400); WHITE BLOOD COUNT 7.2 10^3/uL (4.3-11.0)
[2023-01-18 18:54] LABS: BASOPHILS # (AUTO) 0.1 10^3/uL (0.0-0.1); BASOPHILS % (AUTO) 1 % (0-10); LYMPHOCYTES # (AUTO) 2.3 10^3/uL (1.0-4.0); MONOCYTES # (AUTO) 0.7 10^3/uL (0.0-1.0); NEUTROPHILS # (AUTO) 4.2 10^3/uL (1.8-7.8)
[2023-01-18 18:59] LABS: BILIRUBIN,URINE NEGATIVE (NEGATIVE); CLARITY,URINE CLEAR; COLOR,URINE YELLOW; GLUCOSE, URINE (UA) 3+ (NEGATIVE); KETONES,URINE 3+ (NEGATIVE); LEUKOCYTE ESTERASE ,URINE NEGATIVE (NEGATIVE); NITRITE,URINE NEGATIVE (NEGATIVE); PH,URINE 5.5 (5-9); PROTEIN,URINE NEGATIVE (NEGATIVE)
[2023-01-18 19:05] LABS: BACTERIA,URINE NEGATIVE /HPF; RBC,URINE 0-2 /HPF; SQUAMOUS EPITHELIAL CELL,UR 0-2 /HPF
[2023-01-18 19:06] LABS: ALBUMIN 3.7 GM/DL (3.2-4.5); CHLORIDE 104 MMOL/L (98-107); POTASSIUM 4.8 MMOL/L (3.6-5.0); SODIUM 131 MMOL/L (135-145)
[2023-01-18 19:07] LABS: AMYLASE 48 U/L (25-125); CALCIUM 8.5 MG/DL (8.5-10.1)
[2023-01-18 19:09] LABS: AMPHETAMINE SCREEN, URINE NEGATIVE (NEGATIVE); BARBITURATE SCREEN URINE NEGATIVE (NEGATIVE); BENZODIAZEPINES SCREEN URINE NEGATIVE (NEGATIVE); CANNABINOID SCREEN, URINE NEGATIVE (NEGATIVE); COCAINE SCREEN URINE NEGATIVE (NEGATIVE); METHADONE STAT NEGATIVE (NEGATIVE); OPIATE SCREEN URINE NEGATIVE (NEGATIVE); OXYCODONE STAT NEGATIVE (NEGATIVE); PROPOXYPHENE STAT NEGATIVE (NEGATIVE); TRICYCLIC ANTIDEPRESSANTS SCRE NEGATIVE (NEGATIVE)
[2023-01-18 19:09] LABS: TOTAL PROTEIN 7.3 GM/DL (6.4-8.2)
[2023-01-18 19:10] LABS: BILIRUBIN,TOTAL 0.3 MG/DL (0.1-1.0); GLUCOSE 561 MG/DL (70-105)
[2023-01-18 19:12] LABS: ALKALINE PHOSPHATASE 161 U/L (40-136); CREATININE SERUM 1.16 MG/DL (0.60-1.30)
[2023-01-18 19:13] LABS: BUN/CREATININE RATIO 5; CARBON DIOXIDE < 5 MMOL/L (21-32)
[2023-01-18 19:15] LABS: ALANINE AMINOTRANSFERASE 24 U/L (0-55); GFR ESTIMATED 69; MAGNESIUM 1.8 MG/DL (1.6-2.4)
[2023-01-18 19:16] LABS: LIPASE 44 U/L (8-78)
[2023-01-18] MEDS ORDERED: inSUlin (REGULAR) HUMAN 1 UNIT/0.01 ML (CHARGE PER UNIT) IV ONE (19:45)
[2023-01-18 19:55] LABS: ABG BASE EXCESS -23.3 MMOL/L (-2.5-2.5); ABG OXYGEN SATURATION 98 % (94-100); ABG PO2 117 MMHG (79-93)
[2023-01-18 20:02] LABS: ABG PCO2 12 MMHG (35-45); ABG PH 7.18 (7.37-7.43); ALLENS TEST YES-POS; INSPIRED O2 RA; PATIENT TEMP 36.7; VENTILATOR NO
[2023-01-18 20:03] LABS: ABG TCO2 4.6 MMOL/L (21.0-31.0)
[2023-01-18] MEDS ORDERED: KETOROLAC 30 MG/ML VIAL IVP ONE (20:30)
[2023-01-18] MEDS ORDERED: ONDANSETRON 4 MG/2 ML (SDV) Z0FRAN IV ONE (20:45)
[2023-01-18] MEDS ORDERED: NS IV 1000 ML 1,000 ML ONE (21:01)
[2023-01-18] MEDS ORDERED: NS IV 500 ML 500 ML IV PRN (21:15)
[2023-01-18 21:54] LABS: CHLORIDE 106 MMOL/L (98-107); POTASSIUM 4.2 MMOL/L (3.6-5.0); SODIUM 136 MMOL/L (135-145)
[2023-01-18 21:56] LABS: CALCIUM 8.3 MG/DL (8.5-10.1)
[2023-01-18 22:00] LABS: CARBON DIOXIDE < 5 MMOL/L (21-32); CREATININE SERUM 1.16 MG/DL (0.60-1.30); GFR ESTIMATED 69; GLUCOSE 420 MG/DL (70-105)
[2023-01-18] MEDS ORDERED: CATHETER FLUSH 10 ML SYR IVP PRN (22:00)
[2023-01-18 22:01] LABS: BUN/CREATININE RATIO 6
[2023-01-18] MEDS: CATHETER FLUSH 10 ML SYR IVP SCH (22:22)
[2023-01-18] MEDS: NS IV 1000 ML 1,000 ML IV SCH ×2 (22:23→22:33)
--- NOTE | 2023-01-18 22:32 | Tele-ICU Progress Note ---
Progress Note 22F with poorly compliant DM, frequent admits for DKA now admitted with DKA. She became overheated and fatigued riding around without air conditioning. Took glucose, was over 600. Took 13u insulin and presented to ED. Reports diffuse pain, typical of her DKA episodes. A/P: - DKA: insulin drip until anion gap closes. Then transition to SC refimen. Serial labs while on drip. Gap remains 25 (up from 22), glucose 429, ketones 9.8. Patient assessed via real time audiovisual communication system. CCT5 min Focused Exam Lactate Level 01/18/23 18:45: Lactic Acid Level 1.21 Height, Weight, BMI Height: 5'9.00" Weight: 255lbs. 0oz. 115.362288md; 28.60 BMI Method:Stated Lactic Acid Level Laboratory Tests Test 01/18/23 18:45 Lactic Acid Level 1.21 MMOL/L (0.50-2.00) ANG OGDEN MD January 18, 2023 22:32
[2023-01-18] MEDS: POTASSIUM CL 10MEQ/50ML IVPB 50 ML IV SCH (22:33)
[2023-01-18] MEDS: ONDANSETRON 4 MG/2 ML (SDV) Z0FRAN IVP PRN (22:37)
[2023-01-18] MEDS: morphine INJ 4 MG/ML 1 ML (VIAL/SYRINGE) IVP PRN (23:11)
[2023-01-18] MEDS: 1/2 NS IV SOLUTION 1,000 ML IV SCH (23:45)
[2023-01-18 23:56] LABS: CHLORIDE 113 MMOL/L (98-107); POTASSIUM 3.9 MMOL/L (3.6-5.0); SODIUM 137 MMOL/L (135-145)
[2023-01-18 23:57] LABS: CALCIUM 7.3 MG/DL (8.5-10.1); GLUCOSE 234 MG/DL (70-105)
[2023-01-19 00:01] LABS: CREATININE SERUM 0.93 MG/DL (0.60-1.30); GFR ESTIMATED 90
[2023-01-19 00:02] LABS: BUN/CREATININE RATIO 6
[2023-01-19 00:06] LABS: CARBON DIOXIDE < 5 MMOL/L (21-32)
[2023-01-19] MEDS: POTASSIUM CL 10MEQ/50ML IVPB 50 ML IV SCH ×11 (01:37→23:39)
[2023-01-19] MEDS: D5 1/2 NS 1000 ML IV SOLUTION 1,000 ML IV SCH ×6 (01:38→22:16)
[2023-01-19] MEDS: morphine INJ 4 MG/ML 1 ML (VIAL/SYRINGE) IVP PRN ×8 (01:38→21:48)
[2023-01-19 03:42] LABS: BASOPHILS % (AUTO) 0 % (0-10); EOSINOPHILS % (AUTO) 0 % (0-10); HEMATOCRIT 28 % (35-52); LYMPHOCYTES # (AUTO) 3.4 10^3/uL (1.0-4.0); LYMPHOCYTES % (AUTO) 41 % (12-44); MEAN CORPUSCULAR HEMOGLOBIN 24 pg (25-34); MEAN CORPUSCULAR HGB CONC 32 g/dL (32-36); MEAN CORPUSCULAR VOLUME 76 fL (80-99); MEAN PLATELET VOLUME 10.5 fL (9.0-12.2); MONOCYTES # (AUTO) 0.9 10^3/uL (0.0-1.0); MONOCYTES % (AUTO) 10 % (0-12); NEUTROPHILS % (AUTO) 47 % (42-75); PLATELET COUNT 312 10^3/uL (130-400); WHITE BLOOD COUNT 8.4 10^3/uL (4.3-11.0)
[2023-01-19] MEDS: 1/2 NS IV SOLUTION 1,000 ML IV SCH ×6 (03:51→22:00)
[2023-01-19 03:52] LABS: ALBUMIN 2.9 GM/DL (3.2-4.5)
[2023-01-19 03:53] LABS: POTASSIUM 3.7 MMOL/L (3.6-5.0)
[2023-01-19 03:54] LABS: CALCIUM 7.2 MG/DL (8.5-10.1)
[2023-01-19 03:55] LABS: TOTAL PROTEIN 5.7 GM/DL (6.4-8.2)
[2023-01-19 03:57] LABS: BILIRUBIN,TOTAL 0.2 MG/DL (0.1-1.0)
[2023-01-19 03:58] LABS: PHOSPHORUS 1.9 MG/DL (2.3-4.7)
[2023-01-19 03:59] LABS: CREATININE SERUM 0.86 MG/DL (0.60-1.30)
[2023-01-19 04:02] LABS: MAGNESIUM 1.5 MG/DL (1.6-2.4)
[2023-01-19] MEDS ORDERED: MAGNESIUM 1 GM/100 ML IVPB 400 ML IV ONE (05:43)
[2023-01-19] MEDS ORDERED: POTASSIUM CL 10MEQ/50ML IVPB 100 ML IV ONE (05:43)
[2023-01-19] MEDS: MAGNESIUM 1 GM/100 ML IVPB 100 ML IV SCH ×4 (05:59→07:56)
[2023-01-19] MEDS: CATHETER FLUSH 10 ML SYR IVP SCH ×3 (06:03→22:00)
[2023-01-19] MEDS: KCL 20 MEQ TAB (K-DUR) PO SCH (06:10)
[2023-01-19 07:55] LABS: POTASSIUM 3.7 MMOL/L (3.6-5.0)
[2023-01-19 07:56] LABS: CALCIUM 7.1 MG/DL (8.5-10.1)
[2023-01-19 08:01] LABS: CREATININE SERUM 0.78 MG/DL (0.60-1.30)
[2023-01-19] MEDS: ENOXAPARIN 40 MG/0.4 ML (LOVENOX) SYR SC SCH (09:56)
[2023-01-19] MEDS: ONDANSETRON 4 MG/2 ML (SDV) Z0FRAN IVP PRN (10:07)
[2023-01-19 11:52] LABS: POTASSIUM 3.2 MMOL/L (3.6-5.0)
[2023-01-19 11:53] LABS: CALCIUM 7.1 MG/DL (8.5-10.1)
[2023-01-19 11:57] LABS: CREATININE SERUM 0.73 MG/DL (0.60-1.30)
--- NOTE | 2023-01-19 12:18 | History & Physical-Hospitalist ---
History of Present Illness HPI/Chief Complaint CC: DKA HPI: This is a 22yoWF clinic patient of [facility] who has very brittle DM and frequent DKA admits who presented to the ER with N/V and found to have DKA so she was admitted and placed on IV insulin. She reports she went to [place] for her post appt ( demise at 29 weeks) and had no air conditioning in the car and felt like she overheated and that caused the DKA. Source: patient Exam Limitations: no limitations Date Seen 01/19/23 Time Seen by a Provider: 11:00 Attending Physician Carlos Lyn DO PCP Admitting Physician: Simi Esposito MD Attending Physician: Simi Esposito MD Referring Physician Date of Admission January 18, 2023 at 20:39 Home Medications & Allergies Home Medications Reviewed patient Home Medication Reconciliation performed by pharmacy medication reconciliations signals collection technician and/or nursing. Patients Allergies have been reviewed. Allergies Allergies Coded Allergies bismuth subsalicylate (Verified Allergy, Unknown, 08/29/22) latex (Unverified Allergy, Unknown, 01/09/23) Past Fpqezmj-Hubzjx-Zgyxnd Hx Patient Social History Marrital Status: cohabiting Employed/Student: unemployed Tobacco Use?: No Smoking Status: Former Smoker Use of E-Cig and/or Vaping dev: Yes E-Cig or Vaping type used: Nicotine Substance use?: No Alcohol Use?: No Pt feels they are or have been: No Immunizations Up To Date Date of Influenza Vaccine: Jul 25, 2022 First/Initial COVID19 Vaccinat: APR 2021 Second COVID19 Vaccination [place]: MAY 2021 Tetanus Booster (TDap): Less Than 5 Years Hepatitis A: Yes Hepatitis B: Yes PED Vaccines UTD: Yes Seasonal Allergies Seasonal Allergies: No Current Status status: No status: No Advance Directives: No Communicates: Verbally Primary Language: Faroese Preferred Spoken Language: Faroese Is interpretation needed?: No Sensory deficits: Vision impairment Implanted or Applied Medical D: None Past Medical History Currently Using CPAP: No Currently Using BIPAP: No Palpitations Sexually Transmitted Disease: No HIV/AIDS: No Bladder Infection Diabetes, Insulin dep Loss of Vision: Denies Hearing Impairment: Denies Anxiety, Depression Blood Disorders: No Adverse Reaction/Blood Tranf: No PMHx: Type I DM Depression SurgHx: Denies Family Medical History No Pertinent Family Hx MULTITUDE OF VISITS, MANY FOR DKA/DIABETES RELATED ISSUES ALSO MULTIPLE VISITS FOR CHRONIC NAUSEA/VOMITING AND ABDOMINAL PAIN RELATED TO MARIJANA USE/CANNIBIS HYPEREMESIS. Review of Systems Constitutional: see HPI Gastrointestinal: loss of appetite, nausea, vomiting Physical Exam Physical Exam Vital Signs Vital Signs - First Documented 01/18/23 18:14 Temp 36.9 Pulse 118 Resp 16 B/P (MAP) 152/83 (106) Pulse Ox 100 O2 Delivery Room Air Capillary Refill : Less Than 3 Seconds Height, Weight, BMI Height: 5'9.00" Weight: 255lbs. 0oz. 115.787876tr; 28.60 BMI Method:Stated General Appearance: No Apparent Distress Eyes: Right Eye Normal Inspection, Right Eye PERRL HEENT: PERRL/EOMI, TMs Normal, Normal ENT Inspection, Pharynx Normal, Moist Mucous Membranes Neck: Full Range of Motion, Normal Inspection, Non Tender Respiratory: Chest Non Tender, Lungs Clear, Normal Breath Sounds, No Accessory Muscle Use, No Respiratory Distress Cardiovascular: Regular Rate, Rhythm, No Edema, No Gallop, No JVD, No Murmur, Normal Peripheral Pulses Gastrointestinal: Normal Bowel Sounds, No Organomegaly, No Pulsatile Mass, Non Tender, Soft Back: Normal Inspection, No CVA Tenderness, No Vertebral Tenderness Extremity: Normal Capillary Refill, Normal Inspection, Normal Range of Motion, Non Tender, No Calf Tenderness, No Pedal Edema Neurologic/Psychiatric: Alert, Oriented x3, No Motor/Sensory Deficits, Normal Mood/Affect Skin: Normal Color, Warm/Dry Lymphatic: No Adenopathy Results Results/Procedures Labs Laboratory Tests 01/18/23 18:45 01/18/23 21:38 01/19/23 03:31 01/19/23 07:37 01/19/23 11:30 01/19/23 15:30 01/19/23 19:42 Patient resulted labs reviewed. Assessment/Plan Admission Diagnosis Assessment: DKA GABE Recent demise at 29 weeks Plan: Insulin drip Admission Status: Inpatient Order (span 2 midnights) Reason for Inpatient Admission: valenciaa JOSIE SMYTH DO January 19, 2023 12:18
[2023-01-19] MEDS ORDERED: INSU100V SC (13:30)
[2023-01-19 15:44] LABS: POTASSIUM 3.8 MMOL/L (3.6-5.0)
[2023-01-19 15:45] LABS: CALCIUM 7.2 MG/DL (8.5-10.1)
[2023-01-19 15:49] LABS: CREATININE SERUM 0.75 MG/DL (0.60-1.30)
[2023-01-19 20:13] LABS: BUN/CREATININE RATIO 3; CALCIUM 7.3 MG/DL (8.5-10.1); CARBON DIOXIDE 11 MMOL/L (21-32); CHLORIDE 111 MMOL/L (98-107); CREATININE SERUM 0.79 MG/DL (0.60-1.30); GFR ESTIMATED 110; GLUCOSE 214 MG/DL (70-105); POTASSIUM 3.9 MMOL/L (3.6-5.0); SODIUM 135 MMOL/L (135-145)
[2023-01-20] MEDS: morphine INJ 4 MG/ML 1 ML (VIAL/SYRINGE) IVP PRN ×9 (00:54→23:08)
[2023-01-20] MEDS: POTASSIUM CL 10MEQ/50ML IVPB 50 ML IV SCH ×5 (01:56→08:39)
[2023-01-20] MEDS: D5 1/2 NS 1000 ML IV SOLUTION 1,000 ML IV SCH ×2 (02:20→06:12)
[2023-01-20] MEDS: 1/2 NS IV SOLUTION 1,000 ML IV SCH ×2 (03:44→06:49)
[2023-01-20 04:50] LABS: BASOPHILS % (AUTO) 0 % (0-10); EOSINOPHILS # (AUTO) 0.1 10^3/uL (0.0-0.3); EOSINOPHILS % (AUTO) 1 % (0-10); HEMATOCRIT 29 % (35-52); HEMOGLOBIN 9.1 g/dL (11.5-16.0); LYMPHOCYTES # (AUTO) 2.6 10^3/uL (1.0-4.0); LYMPHOCYTES % (AUTO) 48 % (12-44); MEAN CORPUSCULAR HEMOGLOBIN 24 pg (25-34); MEAN CORPUSCULAR HGB CONC 32 g/dL (32-36); MEAN CORPUSCULAR VOLUME 75 fL (80-99); MEAN PLATELET VOLUME 10.8 fL (9.0-12.2); MONOCYTES # (AUTO) 0.4 10^3/uL (0.0-1.0); MONOCYTES % (AUTO) 8 % (0-12); NEUTROPHILS # (AUTO) 2.3 10^3/uL (1.8-7.8); NEUTROPHILS % (AUTO) 42 % (42-75); PLATELET COUNT 302 10^3/uL (130-400); WHITE BLOOD COUNT 5.5 10^3/uL (4.3-11.0)
[2023-01-20 05:05] LABS: ALBUMIN 2.6 GM/DL (3.2-4.5); CHLORIDE 113 MMOL/L (98-107); POTASSIUM 3.4 MMOL/L (3.6-5.0); SODIUM 135 MMOL/L (135-145)
[2023-01-20 05:07] LABS: CALCIUM 7.6 MG/DL (8.5-10.1)
[2023-01-20 05:08] LABS: GLUCOSE 205 MG/DL (70-105); TOTAL PROTEIN 5.1 GM/DL (6.4-8.2)
[2023-01-20 05:09] LABS: CARBON DIOXIDE 10 MMOL/L (21-32)
[2023-01-20 05:10] LABS: BILIRUBIN,TOTAL 0.1 MG/DL (0.1-1.0)
[2023-01-20 05:11] LABS: ALKALINE PHOSPHATASE 128 U/L (40-136); CREATININE SERUM 0.72 MG/DL (0.60-1.30); GFR ESTIMATED 123; PHOSPHORUS 1.9 MG/DL (2.3-4.7)
[2023-01-20 05:13] LABS: BUN/CREATININE RATIO 3
[2023-01-20 05:14] LABS: ALANINE AMINOTRANSFERASE 19 U/L (0-55); MAGNESIUM 1.6 MG/DL (1.6-2.4)
[2023-01-20] MEDS: MAGNESIUM 1 GM/100 ML IVPB 100 ML IV SCH (05:45)
[2023-01-20] MEDS: KCL 20 MEQ TAB (K-DUR) PO SCH (05:45)
--- NOTE | 2023-01-20 06:04 | Progress Note - Hospitalist ---
Subjective HPI/CC On Admission Date Seen by Provider: January 20, 2023 Time Seen by Provider: 09:00 CC: DKA HPI: This is a 22yoWF clinic patient of [facility] who has very brittle DM and frequent DKA admits who presented to the ER with N/V and found to have DKA so she was admitted and placed on IV insulin. She reports she went to [place] for her post appt ( demise at 29 weeks) and had no air conditioning in the car and felt like she overheated and that caused the DKA. Subjective/Events-last exam Doing well No N/V Bicarb still low Review of Systems General: Fatigue, Malaise Focused Exam Lactate Level 01/18/23 18:45: Lactic Acid Level 1.21 Objective Exam Vital Signs Vital Signs Date Time Temp Pulse Resp B/P (MAP) Pulse Ox O2 Delivery O2 Flow Rate FiO2 01/21/23 03:29 36.4 83 18 130/88 (102) 98 Room Air Capillary Refill : Less Than 3 Seconds General Appearance: No Apparent Distress, WD/WN, Chronically ill Respiratory: Lungs Clear, Normal Breath Sounds Cardiovascular: Regular Rate, Rhythm Neurologic/Psychiatric: Alert, Oriented x3 Results/Procedures Lab Laboratory Tests 01/20/23 08:20 01/21/23 05:45 Patient resulted labs reviewed. Assessment/Plan Assessment and Plan Assess & Plan/Chief Complaint Assessment: DKA Elevated LFT's Plan: Monitor closely JOSIE SMYTH DO January 20, 2023 06:04
[2023-01-20] MEDS: CATHETER FLUSH 10 ML SYR IVP SCH ×3 (06:48→19:22)
[2023-01-20 08:53] LABS: CHLORIDE 113 MMOL/L (98-107); POTASSIUM 4.1 MMOL/L (3.6-5.0); SODIUM 138 MMOL/L (135-145)
[2023-01-20 08:55] LABS: GLUCOSE 123 MG/DL (70-105)
[2023-01-20 08:56] LABS: CARBON DIOXIDE 12 MMOL/L (21-32)
[2023-01-20 08:59] LABS: CREATININE SERUM 0.68 MG/DL (0.60-1.30); GFR ESTIMATED 128
[2023-01-20 09:00] LABS: BUN/CREATININE RATIO 3
[2023-01-20] MEDS: ENOXAPARIN 40 MG/0.4 ML (LOVENOX) SYR SC SCH (09:24)
[2023-01-20] MEDS: 1/2 NS W/KCL 20 MEQ/L 1,000 ML IV SCH ×2 (11:00→20:18)
[2023-01-20] MEDS: inSUlin ASPART (NovoLOG) 1 UNIT/0.01 ML (CHARGE PER UNIT) SC SCH ×2 (12:25→17:52)
[2023-01-20 15:36] VITALS: BP 124/82
[2023-01-20 19:36] VITALS: BP 125/82
[2023-01-20] MEDS: ONDANSETRON 4 MG/2 ML (SDV) Z0FRAN IVP PRN (23:11)
[2023-01-20 23:23] VITALS: BP 123/76
[2023-01-21] MEDS: morphine INJ 4 MG/ML 1 ML (VIAL/SYRINGE) IVP PRN ×3 (02:28→10:35)
[2023-01-21 03:29] VITALS: BP 130/88
[2023-01-21] MEDS: CATHETER FLUSH 10 ML SYR IVP SCH (05:10)
[2023-01-21] MEDS: 1/2 NS W/KCL 20 MEQ/L 1,000 ML IV SCH (05:21)
[2023-01-21 05:56] LABS: BASOPHILS % (AUTO) 0 % (0-10); EOSINOPHILS % (AUTO) 1 % (0-10); HEMATOCRIT 29 % (35-52); HEMOGLOBIN 9.4 g/dL (11.5-16.0); LYMPHOCYTES # (AUTO) 2.2 10^3/uL (1.0-4.0); LYMPHOCYTES % (AUTO) 67 % (12-44); MEAN CORPUSCULAR HEMOGLOBIN 24 pg (25-34); MEAN CORPUSCULAR HGB CONC 32 g/dL (32-36); MEAN CORPUSCULAR VOLUME 74 fL (80-99); MEAN PLATELET VOLUME 10.1 fL (9.0-12.2); MONOCYTES # (AUTO) 0.2 10^3/uL (0.0-1.0); MONOCYTES % (AUTO) 6 % (0-12); NEUTROPHILS # (AUTO) 0.8 10^3/uL (1.8-7.8); NEUTROPHILS % (AUTO) 25 % (42-75); PLATELET COUNT 301 10^3/uL (130-400); WHITE BLOOD COUNT 3.2 10^3/uL (4.3-11.0)
[2023-01-21 06:18] LABS: ALANINE AMINOTRANSFERASE 155 U/L (0-55); ALBUMIN 2.7 GM/DL (3.2-4.5); ALKALINE PHOSPHATASE 141 U/L (40-136); BILIRUBIN,TOTAL 0.3 MG/DL (0.1-1.0); BUN/CREATININE RATIO 3; CALCIUM 8.7 MG/DL (8.5-10.1); CARBON DIOXIDE 23 MMOL/L (21-32); CHLORIDE 108 MMOL/L (98-107); GFR ESTIMATED 127; GLUCOSE 218 MG/DL (70-105); MAGNESIUM 1.6 MG/DL (1.6-2.4); SODIUM 139 MMOL/L (135-145); TOTAL PROTEIN 5.2 GM/DL (6.4-8.2)
[2023-01-21] MEDS: inSUlin ASPART (NovoLOG) 1 UNIT/0.01 ML (CHARGE PER UNIT) SC SCH (06:45)
[2023-01-21 07:31] VITALS: BP 125/81
[2023-01-21] MEDS: ENOXAPARIN 40 MG/0.4 ML (LOVENOX) SYR SC SCH (09:01)
--- NOTE | 2023-01-21 11:14 | Discharge Summary ---
Discharge Summary Hospital Course Was the Problem List Reviewed?: Yes Problems/Dx: (1) DKA (diabetic ketoacidosis) Status: Resolved (2) Nausea and vomiting Status: Resolved Hospital Course Date of Admission: January 18, 2023 at 20:39 Admission Diagnosis : Family Physician/Provider: Carlos Lyn DO Date of Discharge: 01/21/23 Discharge Diagnosis: [ ] Hospital Course: Uneventful course after admitted for DKA. IV insulin initiated along with IVF which resolved the DKA so she was moved to t with stable sugars and was DC. Labs and Pending Lab Test: Laboratory Tests 01/20/23 13:56: Glucometer 104 01/20/23 19:35: Glucometer 100 01/21/23 04:08: Glucometer 104 01/21/23 05:45: White Blood Count 3.2L, Red Blood Count 3.99, Hemoglobin 9.4L, Hematocrit 29L, Mean Corpuscular Volume 74L, Mean Corpuscular Hemoglobin 24L, Mean Corpuscular Hemoglobin Concent 32, Red Cell Distribution Width 17.2H, Platelet Count 301, Mean Platelet Volume 10.1, Immature Granulocyte % (Auto) 0, Neutrophils (%) (Auto) 25L, Lymphocytes (%) (Auto) 67H, Monocytes (%) (Auto) 6, Eosinophils (%) (Auto) 1, Basophils (%) (Auto) 0, Neutrophils # (Auto) 0.8L, Lymphocytes # (Auto) 2.2, Monocytes # (Auto) 0.2, Eosinophils # (Auto) 0.0, Basophils # (Auto) 0.0, Immature Granulocyte # (Auto) 0.0, Sodium Level 139, Potassium Level 4.0, Chloride Level 108H, Carbon Dioxide Level 23, Anion Gap 8, Blood Urea Nitrogen < 2L, Creatinine 0.70, Estimat Glomerular Filtration Rate 127, BUN/Creatinine Ratio 3, Glucose Level 218H, Calcium Level 8.7, Corrected Calcium 9.7, Magnesium Level 1.6, Total Bilirubin 0.3, Aspartate Amino Transf (AST/SGOT) 495H, Alanine Aminotransferase (ALT/SGPT) 155H, Alkaline Phosphatase 141H, Total Protein 5.2L, Albumin 2.7L, Beta-Hydroxybutyrate (Chem panel) 0.45H 01/21/23 09:14: Glucometer 125H Microbiology 01/18/23 MRSA Screen - Final, Complete MRSA not isolated Home Meds Active Lantus Solostar (Insulin Glargine,Hum.rec.anlog) 100 Unit/Ml (3 Ml) Insuln.pen 20 Unit SQ BID 7 Days Reported Humalog (Insulin Lispro) 100 Unit/Ml Vial Units SC AC Ibuprofen 200 Mg Tablet 400 Mg PO Q8H PRN Tylenol Extra Strength (Acetaminophen) 500 Mg Tablet 1,000 Mg PO Q8H PRN Assessment/Pt Instructions PCP 1 week Discharge Planning: <30 minutes discharge planning Discharge Instructions Discharge Diet: ADA Diet Discharge Physical Examination Vital Signs Vital Signs Date Time Temp Pulse Resp B/P (MAP) Pulse Ox O2 Delivery O2 Flow Rate FiO2 01/21/23 09:08 Room Air 01/21/23 07:31 36.3 66 16 125/81 (96) 98 General Appearance: No Apparent Distress, WD/WN Respiratory: Lungs Clear Cardiovascular: Regular Rate, Rhythm Neurologic/Psychiatric: Alert, Oriented x3, No Motor/Sensory Deficits, Normal Mood/Affect Allergies: Coded Allergies: bismuth subsalicylate (Verified Allergy, Unknown, 08/29/22) latex (Unverified Allergy, Unknown, 01/09/23) Discharge Summary Date of Admission January 18, 2023 at 20:39 Date of Discharge Discharge Date: January 21, 2023 Admission Diagnosis Assessment: DKA GABE Recent demise at 29 weeks Plan: Insulin drip Discharge Diagnosis Assessment: DKA Elevated LFT's Plan: Monitor closely JOSIE SMYTH DO January 21, 2023 11:14
[2023-01-21 11:19] VITALS: BP 124/79
== END 2023-01-21 12:40 | disposition home or self-care (01) | DRG 638 ==
LOC: EDUNIT# 18:09 → ER 18:10 → ICU 20:39 → 4TH 01-20 10:38
PROVIDERS: ADMIT Family Medicine; ATTEND Internal Medicine
DX: E10.10 Type 1 diabetes mellitus with ketoacidosis without coma (principal); N17.9 Acute kidney failure, unspecified; Z79.4 Long term (current) use of insulin; F17.290 Nicotine dependence, other tobacco product, uncomplicated; Z87.59 Personal history of other complications of pregnancy, childbirth and the puerperium; F41.9 Anxiety disorder, unspecified; F32.A Depression, unspecified; R94.5 Abnormal results of liver function studies
CPT/HCPCS: 36415; 36600; 80048; 80053; 80306; 81000; 82010; 82150; 82805; 82947; 83036; 83605; 83690; 83735; 84100; 84703; 85025; 87081; 93041

== ENCOUNTER 2023-02-21 21:08 | Emergency (ER) | payer BC, MEDICAID ==
[~2023-02-21] VITALS: Ht 175.2 cm; Wt 92.0 kg
[~2023-02-21 21:08] MED LIST changes: +INSU100V SC
--- NOTE | 2023-02-21 21:29 | ED Lower Extremity ---
General Chief Complaint: Lower Extremity Stated Complaint: RIGHT ANKLE PAIN Source: patient History of Present Illness Date Seen by Provider: Feb 21, 2023 Time Seen by Provider: 21:18 Initial Comments PT ARRIVES VIA POV FROM HOME PT STATES THAT LESS THAN 15 MINUTES AGO, SHE WAS INSIDE, AND PLAYING WITH HER DOG, AND SHE "ROLLED HER ANKLE" WAS BAREFOOT AT THE TIME C/O PAIN TO LATERAL ASPECT OF RIGHT ANKLE STATES 4TH AND 5TH TOES FEEL A LITTLE TINGLY STATES "IT POPPED TWICE REAL LOUD" NO OTHER INJURIES FROM THE INCIDENT SHE STATES SHE HAS SPRAINED THIS ANKLE IN THE PAST, AND BROKE IT IN 3RD GRADE. NO SURGERY LMP 01/13/23. NO CONTROL. DELIVERED 12/07/22--STILLBORN AT 29/30 WEEKS GESTATION. PCP: RICK Allergies and Home Medications Allergies Coded Allergies: bismuth subsalicylate (Verified Allergy, Unknown, 08/29/22) latex (Unverified Allergy, Unknown, 01/09/23) Patient Home Medication List Home Medication List Reviewed: Yes Ibuprofen (Ibuprofen) 200 Mg Tablet, 400 MG PO Q8H PRN for PAIN-MILD (1-4), (Reported) Entered as Reported by: COLT BOURNE on 01/10/23 1134 Insulin Glargine,Hum.rec.anlog (Lantus Solostar) 100 Unit/Ml (3 Ml) Insuln.pen, 20 UNIT SQ BID Prescribed by: JOSIE SMYTH on 01/12/23 1038 Insulin Lispro (Humalog) 100 Unit/Ml Vial, UNITS SC AC, (Reported) Entered as Reported by: COLT BOURNE on 01/19/23 1330 Naproxen (Naproxen) 500 Mg Tablet.dr, 500 MG PO BID Prescribed by: LADONNA RANGEL on 02/21/23 2138 Review of Systems Constitutional: no symptoms reported Musculoskeletal: see HPI Skin: no symptoms reported Psychiatric/Neurological: See HPI Past Ydiwrgc-Sposfw-Ewfciv Hx Patient Social History Use of E-Cig and/or Vaping dev: Yes E-Cig or Vaping type used: Nicotine Substance use?: Yes Substance type: Marijuana Substance frequency: Daily Alcohol Use?: Yes Alcohol Frequency: Once in a while Immunizations Up To Date Tetanus Booster (TDap): Less than 5yrs PED Vaccines UTD: Yes First/Initial COVID19 Vaccinat: APR 2021 Second COVID19 Vaccination [place]: MAY 2021 Third COVID19 Vaccination Date: APR 2021 Seasonal Allergies Seasonal Allergies: No Past Medical History Surgery/Hospitalization HX: MULTIPLE HOSPITALIZATIONS FOR DKA; HAD STILLBORN ON DECEMBER 07 @ 29 WKS Surgeries: No Respiratory: No Currently Using CPAP: No Currently Using BIPAP: No Cardiac: Yes (TACHYCARDIA) Palpitations Neurological: No : No Reproductive Disorders: No Female Reproductive Disorders: Denies Sexually Transmitted Disease: No HIV/AIDS: No Genitourinary: Yes Bladder Infection Gastrointestinal: Yes (CANNABIS HYPEREMESIS; CHRONIC 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 DX AGE 12) Diabetes, Insulin dep HEENT: No Loss of Vision: Denies Hearing Impairment: Denies Cancer: No Psychosocial: Yes Anxiety, Depression Integumentary: No Blood Disorders: No Adverse Reaction/Blood Tranf: No Family Medical History No Pertinent Family Hx MULTITUDE OF VISITS, MANY FOR DKA/DIABETES RELATED ISSUES ALSO MULTIPLE VISITS FOR CHRONIC NAUSEA/VOMITING AND ABDOMINAL PAIN RELATED TO MARIJANA USE/CANNIBIS HYPEREMESIS. Physical Exam Vital Signs Vital Signs - First Documented 02/21/23 21:14 Pulse 137 B/P (MAP) 117/81 (93) Pulse Ox 99 O2 Delivery Room Air Capillary Refill : Height, Weight, BMI Height: 5'9.00" Weight: 255lbs. 0oz. 115.835835uz; 28.60 BMI Method:Stated General Appearance: WD/WN, no apparent distress Ankles: right ankle other (TENDERNESS TO RIGHT ANKLE LATERAL MALLEOLUS AREA. NO EXTERNAL EVIDENCE OF TRAUMA. LIMITED ROM AT ANKLE DUE TO PAIN, DISTAL MOTOR/SENSORY/VASCULAR INTACT. ) Feet: right foot normal inspection Neurologic/Psychiatric: qa specialist II-XII nml as tested, no motor/sensory deficits, alert, normal mood/affect, oriented x 3 Skin: normal color, warm/dry, tattoos/piercings Procedures/Interventions Date of ETT Placement: Feb 18, 2021 Time of ETT Placement: 143 Splinting and Joint Reduction : Saravanan wrap: Yes Immobilizers: Step Light Walker s/m/lg Progress/Results/Core Measures Results/Orders My Orders Orders - LADONNA RANGEL DO Ankle, Right, 3 Views (02/21/23 21:23) Saravanan Bandage (02/21/23 21:36) Steplite (02/21/23 21:36) Rx-Naproxen (Rx-Naprosyn) (02/21/23 21:38) Rx-Naproxen (Rx-Naprosyn) (02/21/23 21:45) Vital Signs/I&O 02/21/23 02/21/23 21:14 21:53 Pulse 137 123 B/P (MAP) 117/81 (93) 117/81 Pulse Ox 99 99 O2 Delivery Room Air Room Air Progress Progress Note : Progress Note DISCUSSED ANTICIPATED COURSE, SYMPTOMATIC TREATMENT, MEDICATIONS, NEED FOR FOLLOW UP AND RETURN PRECAUTIONS Diagnostic Imaging Comments XRAYS RIGHT ANKLE--PENDING RADIOLOGIST REVIEW -NO ACUTE BONY ABNORMALITY Reviewed: Reviewed by Me Departure Impression Primary Impression: Right ankle sprain Disposition: 01 HOME, SELF-CARE Condition: Stable Departure-Patient Inst. Decision time for Depature: 21:37 Referrals: COLT LAMBERT DO (PCP/Family) Primary Care Physician Patient Instructions: Ankle Sprain ED, How to Use an Elastic Bandage, Walking Boot, Using Cold for Pain Add. Discharge Instructions: ICE TO AREA AT 20 MINUTE INTERVALS SARAVANAN WRAP AND WALKING BOOT FOR COMFORT ELEVATE FOOT MUCH POSSIBLE FOLLOW UP WITH [facility] IN 1 WEEK IF NO BETTER All discharge instructions reviewed with patient and/or family. Voiced understanding. Scripts Naproxen (Naproxen) 500 Mg Tablet. 500 MG PO BID, #20 TAB Prov: LADONNA RANGEL DO 02/21/23 LADONNA RANGEL DO Feb 21, 2023 21:29
[2023-02-21] MEDS ORDERED: RX-NAPROXEN (NAPROSYN) 250 MG TAB PPK#4 PO STA (21:38)
[2023-02-21] MEDS ORDERED: NAPR500T8 PO (21:38)
[2023-02-21] MEDS ORDERED: RX-NAPROXEN (NAPROSYN) 250 MG TAB PPK#4 PO ONE (21:45)
[2023-02-21 21:53] VITALS: BP 117/81
--- NOTE | 2023-02-21 23:28 | Diagnostic Imaging Report ---
CLINICAL INDICATION: Patient with ankle pain after playing with her dog and heard a couple of pops. EXAM: X-ray of the right ankle, 3 views. COMPARISONS: None. FINDINGS: There is no acute fracture or dislocation. There is no significant bone or joint abnormality. Ankle mortise and syndesmotic joints unremarkable. IMPRESSION: There is no acute fracture or dislocation. I agree with the Emergency Room clinician's preliminary impression. Dictated by: Dictated on workstation # [id number]
== END 2023-02-21 21:53 | disposition home or self-care (01) ==
LOC: EDUNIT# 21:08 → ER 21:10
DX: S93.401A Sprain of unspecified ligament of right ankle, initial encounter (principal); E10.9 Type 1 diabetes mellitus without complications; F17.290 Nicotine dependence, other tobacco product, uncomplicated; Z91.040 Latex allergy status; X50.0XXA Overexertion from strenuous movement or load, initial encounter
CPT/HCPCS: 73610

== ENCOUNTER 2023-02-27 17:45 | Observation (INO) | payer BC, MEDICAID ==
[~2023-02-27] VITALS: Ht 175.3 cm; Wt 79.0 kg
[~2023-02-27 17:45] MED LIST changes: +NAPR500T8 PO
[2023-02-27] MEDS ORDERED: NS IV 1000 ML 1,000 ML IV SCH (18:30)
--- NOTE | 2023-02-27 18:33 | ED General ---
General Chief Complaint: Glucose Problems Stated Complaint: BLOOD SUGAR ELEVATED Nursing Triage Note: PT PRESENTS TO ED VIA POV FROM HOME WITH COMPLAINTS OF HIGH BLOOD SUGARS SINCE 0500 THIS AM. PT ALSO REPORTS NAUSEA, AND BODY ACHES. PT STATES HER BLOOD SUGARS HAVE BEEN ANYWHERE FROM 500-200 TODAY. Source of Information: Patient Exam Limitations: No Limitations History of Present Illness Date Seen by Provider: Feb 27, 2023 Time Seen by Provider: 18:24 Initial Comments 22-year-old female type I diabetic with an insulin pump presents to the emergency department today for fluctuations in her blood sugars. She states however she has been able to get it was 211, highest was greater than 500 more recently. Had a recent diarrheal type illness with loose stools multiple times a day and some diffuse abdominal cramping. No focal abdominal pain. No fevers chills chest pain cough. She also think she might have a urinary tract infection with dysuria. She think she might have a yeast infection as well because her discharge is changed in consistency. No new sexual partners. All other systems reviewed and negative except documented per HPI. Voice recognition software was used to help create this chart Allergies and Home Medications Allergies Coded Allergies: bismuth subsalicylate (Verified Allergy, Unknown, 08/29/22) latex (Unverified Allergy, Unknown, 01/09/23) Patient Home Medication List Home Medication List Reviewed: Yes Acetaminophen (Tylenol Extra Strength) 500 Mg Tablet, 1,000 MG PO Q8H PRN for PAIN-MILD (1-4), (Reported) Entered as Reported by: COLT BOURNE on 02/28/23 1150 Last Action: Reviewed Bupropion HCl (Bupropion HCl) 75 Mg Tablet, 75 MG PO BID, (Reported) Entered as Reported by: COLT BOURNE on 02/28/23 1150 Last Action: Reviewed Ferrous Sulfate (Ferrous Sulfate) 325 Mg (65 Mg Iron) Tablet, 325 MG PO DAILY Prescribed by: PILI SWANSON on 03/01/23 0740 Ibuprofen (Ibuprofen) 200 Mg Tablet, 400 MG PO Q8H PRN for PAIN-MILD (1-4), (Reported) Entered as Reported by: COLT BOURNE on 01/10/23 1134 Last Action: Reviewed Insulin Lispro (Humalog) 100 Unit/Ml Vial, 0 SC UD Prescribed by: PILI SWANSON on 03/01/23 1024 Naproxen (EC-Naproxen) 500 Mg Tablet.dr, 500 MG PO BID PRN for PAIN-MILD (1-4), (Reported) Entered as Reported by: COLT BOURNE on 02/28/23 1150 Last Action: Reviewed Discontinued Medications Insulin Glargine,Hum.rec.anlog (Lantus Solostar) 100 Unit/Ml (3 Ml) Insuln.pen, 20 UNIT SQ BID Discontinued Reason: No Longer Taking Prescribed by: JOSIE SMYTH on 01/12/23 1038 Last Action: Discontinued Naproxen (Naproxen) 500 Mg Tablet.dr, 500 MG PO BID Discontinued Reason: Duplicate Order Prescribed by: LADONNA RANGEL on 02/21/23 2138 Last Action: Discontinued Review of Systems Review of Systems Constitutional: see HPI Past [place]-Omxbfe-Rxwdpb Hx Patient Social History Tobacco Use?: No Use of E-Cig and/or Vaping dev: Yes E-Cig or Vaping type used: Nicotine Use of E-Cig and/or Vaping Tom: Current Everyday User Substance use?: No Alcohol Use?: Yes Alcohol Frequency: Rarely Immunizations Up To Date Tetanus Booster (TDap): Less than 5yrs PED Vaccines UTD: Yes First/Initial COVID19 Vaccinat: APR 2021 Second COVID19 Vaccination [place]: MAY 2021 Third COVID19 Vaccination Date: APR 2021 Seasonal Allergies Seasonal Allergies: No Past Medical History Surgery/Hospitalization HX: MULTIPLE HOSPITALIZATIONS FOR DKA; HAD STILLBORN ON DECEMBER 07 @ 29 WKS Surgeries: No Respiratory: No Currently Using CPAP: No Currently Using BIPAP: No Cardiac: Yes (TACHYCARDIA) Palpitations Neurological: No Reproductive Disorders: No Female Reproductive Disorders: Denies Sexually Transmitted Disease: No HIV/AIDS: No Genitourinary: Yes Bladder Infection Gastrointestinal: Yes (CANNABIS HYPEREMESIS; CHRONIC 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 DX AGE 12) Diabetes, Insulin dep HEENT: No Loss of Vision: Denies Hearing Impairment: Denies Cancer: No Psychosocial: Yes Anxiety, Depression Integumentary: No Blood Disorders: No Adverse Reaction/Blood Tranf: No Family Medical History No Pertinent Family Hx MULTITUDE OF VISITS, MANY FOR DKA/DIABETES RELATED ISSUES ALSO MULTIPLE VISITS FOR CHRONIC NAUSEA/VOMITING AND ABDOMINAL PAIN RELATED TO MARIJANA USE/CANNIBIS HYPEREMESIS. Physical Exam Vital Signs Vital Signs - First Documented 02/27/23 17:59 Temp 36.8 Pulse 120 Resp 18 B/P (MAP) 119/75 (90) Pulse Ox 100 Capillary Refill : Less Than 3 Seconds Height, Weight, BMI Height: 5'9.00" Weight: 255lbs. 0oz. 115.292046ya; 28.00 BMI Method:Stated General Appearance: No Apparent Distress, WD/WN HEENT: Normal ENT Inspection, Pharynx Normal Neck: Full Range of Motion, Normal Inspection, Non Tender, Supple Respiratory: Chest Non Tender, Lungs Clear, Normal Breath Sounds, No Accessory Muscle Use, No Respiratory Distress Cardiovascular: Regular Rate, Rhythm, No Murmur, Normal Peripheral Pulses Gastrointestinal: Normal Bowel Sounds, Non Tender, Soft Back: Normal Inspection, No CVA Tenderness, No Vertebral Tenderness Extremity: Normal Capillary Refill, Normal Inspection, Normal Range of Motion, Non Tender, No Calf Tenderness Neurologic/Psychiatric: Alert, Oriented x3, No Motor/Sensory Deficits Skin: Normal Color, Warm/Dry Procedures/Interventions Date of ETT Placement: Feb 18, 2021 Time of ETT Placement: 1432 Progress/Results/Core Measures Suspected Sepsis SIRS Temperature: Pulse: 120 Respiratory Rate: 18 Laboratory Tests 02/27/23 18:25: White Blood Count 6.8 Blood Pressure 119 /75 Mean: 90 Laboratory Tests 02/27/23 18:25: Platelet Count 596H, Total Bilirubin 0.3 Results/Orders Lab Results Laboratory Tests Test 02/27/23 18:07 02/27/23 18:10 02/27/23 18:25 02/27/23 19:48 Range/Units Glucometer 361 H 306 H 70-110 MG/DL Urine Color YELLOW Urine Clarity CLEAR Urine pH 5.5 5-9 Urine Specific [place] >=1.030 1.016-1.022 Urine Protein 1+ H NEGATIVE Urine Glucose (UA) 2+ H NEGATIVE Urine Ketones 3+ H NEGATIVE Urine Nitrite NEGATIVE NEGATIVE Urine Bilirubin 1+ H NEGATIVE Urine Urobilinogen 0.2 < = 1.0 MG/DL Urine Leukocyte Esterase NEGATIVE NEGATIVE Urine RBC (Auto) TRACE-I H NEGATIVE Urine RBC 5-10 H /HPF Urine WBC 0-2 /HPF Urine Squamous Epithelial Cells 2-5 /HPF Urine Crystals NONE /LPF Urine Amorphous Sediment RARE ESTHELA URATES H /LPF Urine Bacteria FEW H /HPF Urine Casts PRESENT /LPF Urine Hyaline Casts 0-2 H /LPF Urine Mucus SMALL H /LPF Urine Culture Indicated YES White Blood Count 6.8 4.3-11.0 10^3/uL Red Blood Count 5.28 H 3.80-5.11 10^6/uL Hemoglobin 11.8 11.5-16.0 g/dL Hematocrit 39 35-52 % Mean Corpuscular Volume 73 L 80-99 fL Mean Corpuscular Hemoglobin 22 L 25-34 pg Mean Corpuscular Hemoglobin Concent 31 L 32-36 g/dL Red Cell Distribution Width 16.5 H 10.0-14.5 % Platelet Count 596 H 130-400 10^3/uL Mean Platelet Volume 10.2 9.0-12.2 fL Immature Granulocyte % (Auto) 0 % Neutrophils (%) (Auto) 65 42-75 % Lymphocytes (%) (Auto) 28 12-44 % Monocytes (%) (Auto) 6 0-12 % Eosinophils (%) (Auto) 0 0-10 % Basophils (%) (Auto) 1 0-10 % Neutrophils # (Auto) 4.4 1.8-7.8 10^3/uL Lymphocytes # (Auto) 1.9 1.0-4.0 10^3/uL Monocytes # (Auto) 0.4 0.0-1.0 10^3/uL Eosinophils # (Auto) 0.0 0.0-0.3 10^3/uL Basophils # (Auto) 0.0 0.0-0.1 10^3/uL Immature Granulocyte # (Auto) 0.0 0.0-0.1 10^3/uL Sodium Level 139 135-145 MMOL/L Potassium Level 3.9 3.6-5.0 MMOL/L Chloride Level 109 H 98-107 MMOL/L Carbon Dioxide Level 8 *L 21-32 MMOL/L Anion Gap 22 H 5-14 MMOL/L Blood Urea Nitrogen 9 7-18 MG/DL Creatinine 1.40 H 0.60-1.30 MG/DL Estimat Glomerular Filtration Rate 55 BUN/Creatinine Ratio 6 Glucose Level 373 H 70-105 MG/DL Calcium Level 9.1 8.5-10.1 MG/DL Corrected Calcium 8.7 8.5-10.1 MG/DL Total Bilirubin 0.3 0.1-1.0 MG/DL Aspartate Amino Transf (AST/SGOT) 19 5-34 U/L Alanine Aminotransferase (ALT/SGPT) 17 0-55 U/L Alkaline Phosphatase 222 H 40-136 U/L Total Protein 8.5 H 6.4-8.2 GM/DL Albumin 4.5 3.2-4.5 GM/DL Beta-Hydroxybutyrate (Chem panel) 8.29 H 0.00-0.27 MMOL/L Micro Results Microbiology 02/27/23 Urine Culture - Final, Complete Strep, Beta Hemolytic Group B Mixed Bacterial Lidya My Orders Orders - JESUS LOPEZ DO Cbc With Automated Diff (02/27/23 18:28) Comprehensive Metabolic Panel (02/27/23 18:28) Beta Hydroxybutyrate (02/27/23 18:28) Ua Culture If Indicated (02/27/23 18:28) Urine Bedside (02/27/23 18:28) Ns Iv 1000 Ml (Sodium Chloride 0.9%) (02/27/23 18:30) Ketorolac Injection (Toradol Injection) (02/27/23 18:45) Urine Culture (02/27/23 18:10) Cephalexin Capsule (Keflex Capsule) (02/27/23 19:05) Fluconazole Tablet (Ed Only) (Diflucan T (02/27/23 19:15) Ondansetron Injection (Zofran Injectio (02/27/23 19:15) Insulin Regular Drip (Myxredlin 100 Unit (02/27/23 19:15) Medications Given in ED Vital Signs/I&O 02/27/23 02/27/23 02/27/23 17:59 19:00 19:04 Temp 36.8 36.8 Pulse 120 111 Resp 18 B/P (MAP) 119/75 (90) Pulse Ox 100 Capillary Refill : Less Than 3 Seconds Blood Pressure Mean: 90 Point of Care Testing Finger Stick Blood Glucose: 361 Critical Care Note Critical Care Total Time (minutes) 45 Departure Communication (Admissions) Patient is hemodynamically stable with normal vital signs. Blood sugar 373 with a CO2 of 8. She has an anion gap of 22. She does appear to be in DKA. She likely has a mild urinary tract infection given her symptoms consistent with and her UA findings self it is certainly not definitive. With that I go ahead and give her p.o. Keflex here. She also endorses symptoms of a yeast infection so I will add Diflucan as well. She has diffuse abdominal cramping with some loose stools consistent with her elevated blood sugars and DKA diagnosis. She has no focal tenderness and a nonsurgical abdominal exam. No indication for imaging at this time. Her labs are otherwise reassuring. She was given some Toradol which helped with her abdominal cramping. She was also given IV Zofran for nausea. She was given 1 L of IV fluids and over the insulin drip. She will be admitted to ICU in otherwise stable condition. Impression Primary Impression: DKA (diabetic ketoacidosis) Qualified Codes: E10.10 - Type 1 diabetes mellitus with ketoacidosis without coma Additional Impression: UTI (urinary tract infection) Disposition: ADMITTED INPATIENT Condition: Stable Departure-Patient Inst. Referrals: COLT LAMBERT DO (PCP/Family) Primary Care Physician Scripts Insulin Lispro (Humalog) 100 Unit/Ml Vial 0 SC UD MDD 150 units, #50 ML 0 Refills USES VIA PUMP Prov: PILI SWANSON MD 03/01/23 Ferrous Sulfate (Ferrous Sulfate) 325 Mg (65 Mg Iron) Tablet 325 MG PO DAILY, #30 TAB 0 Refills Prov: PILI SWANSON MD 03/01/23 JESUS LOPEZ DO Feb 27, 2023 18:33
[2023-02-27 18:35] LABS: BASOPHILS % (AUTO) 1 % (0-10); EOSINOPHILS % (AUTO) 0 % (0-10); HEMATOCRIT 39 % (35-52); HEMOGLOBIN 11.8 g/dL (11.5-16.0); LYMPHOCYTES # (AUTO) 1.9 10^3/uL (1.0-4.0); LYMPHOCYTES % (AUTO) 28 % (12-44); MEAN CORPUSCULAR HEMOGLOBIN 22 pg (25-34); MEAN CORPUSCULAR HGB CONC 31 g/dL (32-36); MEAN CORPUSCULAR VOLUME 73 fL (80-99); MEAN PLATELET VOLUME 10.2 fL (9.0-12.2); MONOCYTES # (AUTO) 0.4 10^3/uL (0.0-1.0); MONOCYTES % (AUTO) 6 % (0-12); NEUTROPHILS # (AUTO) 4.4 10^3/uL (1.8-7.8); NEUTROPHILS % (AUTO) 65 % (42-75); PLATELET COUNT 596 10^3/uL (130-400); WHITE BLOOD COUNT 6.8 10^3/uL (4.3-11.0)
[2023-02-27 18:38] LABS: CLARITY,URINE CLEAR; COLOR,URINE YELLOW; GLUCOSE, URINE (UA) 2+ (NEGATIVE); KETONES,URINE 3+ (NEGATIVE); LEUKOCYTE ESTERASE ,URINE NEGATIVE (NEGATIVE); NITRITE,URINE NEGATIVE (NEGATIVE); PH,URINE 5.5 (5-9); PROTEIN,URINE 1+ (NEGATIVE)
[2023-02-27 18:45] LABS: ALBUMIN 4.5 GM/DL (3.2-4.5)
[2023-02-27] MEDS ORDERED: KETOROLAC 15 MG/ML VIAL IVP ONE (18:45)
[2023-02-27 18:46] LABS: POTASSIUM 3.9 MMOL/L (3.6-5.0)
[2023-02-27 18:47] LABS: CALCIUM 9.1 MG/DL (8.5-10.1)
[2023-02-27 18:47] LABS: AMORPHOUS SEDIMENT,UR RARE AMOR URATES /LPF; BACTERIA,URINE FEW /HPF; HYALINE CASTS, URINE 0-2 /LPF; WBC,URINE 0-2 /HPF
[2023-02-27 18:48] LABS: BILIRUBIN,URINE 1+ (NEGATIVE)
[2023-02-27 18:48] LABS: TOTAL PROTEIN 8.5 GM/DL (6.4-8.2)
[2023-02-27 18:50] LABS: BILIRUBIN,TOTAL 0.3 MG/DL (0.1-1.0)
[2023-02-27 18:51] LABS: CREATININE SERUM 1.4 MG/DL (0.60-1.30)
[2023-02-27] MEDS ORDERED: CEPHALEXIN 250 MG (KEFLEX) CAP PO STA (19:05)
[2023-02-27] MEDS ORDERED: ONDANSETRON 4 MG/2 ML (SDV) Z0FRAN IVP ONE (19:15)
[2023-02-27] MEDS ORDERED: FLUCONAZOLE 150 MG TABLET (ED ONLY) PO ONE (19:15)
[2023-02-27] MEDS: 1/2 NS IV SOLUTION 1,000 ML IV SCH (20:10)
[2023-02-27] MEDS ORDERED: 1/2 NS IV SOLUTION 1,000 ML IV ONE (20:10)
[2023-02-27] MEDS ORDERED: D5 1/2 NS 1000 ML IV SOLUTION 1,000 ML IV ONE (20:11)
[2023-02-27] MEDS ORDERED: POTASSIUM CL 10MEQ/50ML IVPB 50 ML IV ONE (20:12)
[2023-02-27] MEDS ORDERED: NS IV 500 ML 500 ML IV PRN ×2 (20:15→21:45)
--- NOTE | 2023-02-27 21:12 | Tele-ICU Consult ---
History of Present Illness History of Present Illness Date Seen by Provider: Feb 27, 2023 Time Seen by Provider: 21:06 History of Present Illness eICU critical care consult 22 yo F known to have brittle DM1, has insulin pump, has frequent admissions for DKA. Came to ED with cc of myalgiis, nausea, POC glucose has been as high as 500, In ED 361 to 400, HCO3 8 with AG 22, [place] 8.29 Started on DKA protocol Had recent episode of what sounds like viral gastroenteritis, also some dysuria, WBC in urine 0-2 At home takes Lantus 20 units bid, Lispro Allergies and Home Medications Allergies Coded Allergies: bismuth subsalicylate (Verified Allergy, Unknown, 08/29/22) latex (Unverified Allergy, Unknown, 01/09/23) Home Medications Ibuprofen 200 Mg Tablet, 400 MG PO Q8H PRN for PAIN-MILD (1-4), (Reported) Insulin Glargine,Hum.rec.anlog 100 Unit/Ml (3 Ml) Insuln.pen, 20 UNIT SQ BID Prescribed by: JOSIE SMYTH on 01/12/23 1038 Insulin Lispro 100 Unit/Ml Vial, UNITS SC AC, (Reported) Naproxen 500 Mg Tablet.dr, 500 MG PO BID Prescribed by: LADONNA RANGEL on 02/21/232137 Past Medical/Social/Family Hx Patient Social History Tobacco Use?: No Use of E-Cig and/or Vaping dev: Yes E-Cig or Vaping type used: Nicotine E-Cig and/or Vaping Freq: Current Everyday User Substance use?: No Alcohol Use?: Yes Alcohol Frequency: Rarely Immunizations Up To Date First/Initial COVID19 Vaccinat: APR 2021 Second COVID19 Vaccination [place]: MAY 2021 Tetanus Booster (TDap): Less Than 5 Years Hepatitis A: Yes Hepatitis B: Yes TB Skin Test: None Current Status Advance Directives: No Primary Language: Chilean Preferred Spoken Language: Chilean Past Medical History PMHx: Type I DM Depression SurgHx: Denies Family Medical History Family Hx: MULTITUDE OF VISITS, MANY FOR DKA/DIABETES RELATED ISSUES ALSO MULTIPLE VISITS FOR CHRONIC NAUSEA/VOMITING AND ABDOMINAL PAIN RELATED TO MARIJANA USE/CANNIBIS HYPEREMESIS. Review of Systems Constitutional: see HPI EENTM: see HPI Respiratory: see HPI Cardiovascular: see HPI Gastrointestinal: see HPI Genitourinary: see HPI Musculoskeletal: see HPI Skin: see HPI Psychiatric/Neurological: See HPI Focused Exam Height, Weight, BMI Height: 5'9.00" Weight: 255lbs. 0oz. 115.109892qy; 28.00 BMI Method:Stated Exam Exam Patient acknowledged, consented, and participated in this virtual visit which was conducted using real time audio/video Vital Signs Date Time Temp Pulse Resp B/P (MAP) Pulse Ox O2 Delivery O2 Flow Rate FiO2 02/27/23 19:55 36.8 120 18 119/75 100 Room Air 02/27/23 19:04 36.8 02/27/23 19:00 111 02/27/23 17:59 36.8 120 18 119/75 (90) 100 Height & Weight Height: 5'9.00" Weight: 255lbs. 0oz. 115.415344zq; 28.00 BMI Method:Stated General Appearance: No Apparent Distress, WD/WN HEENT: Normal ENT Inspection, Pharynx Normal Neck: Full Range of Motion, Normal Inspection, Non Tender, Supple Respiratory: Chest Non Tender, Lungs Clear, Normal Breath Sounds, No Accessory Muscle Use, No Respiratory Distress Cardiovascular: Regular Rate, Rhythm, No Murmur, Normal Peripheral Pulses, Tachycardia Capillary Refill: Less Than 3 Seconds Gastrointestinal: normal bowel sounds, non tender, soft Extremity: Normal Capillary Refill, Normal Inspection, Normal Range of Motion, Non Tender, No Calf Tenderness, No Pedal Edema Neurologic/Psychiatric: Alert, Oriented x3, No Motor/Sensory Deficits Skin: Normal Color, Warm/Dry Results Lab Laboratory Tests 02/27/23 18:25 Assessment/Plan Assessment/Plan Severe DKA, will continue on DKA protocol, getting supplemental potassium last glu 400, some nausea but no vomting Getting for Toradol for generalized pain Spoke to parking meter mechanic: Critically Ill Patient Time spent with patient (mins): 25 VENANCIO MAYEN MD Feb 27, 2023 21:12
[2023-02-27] MEDS ORDERED: ONDANSETRON 4 MG/2 ML (SDV) Z0FRAN IV PRN (21:45)
[2023-02-27] MEDS: NS IV 1000 ML 1,000 ML IV SCH (22:34)
[2023-02-27] MEDS: POTASSIUM CL 10MEQ/50ML IVPB 50 ML IV SCH ×2 (22:59→23:00)
[2023-02-27] MEDS: D5 1/2 NS 1000 ML IV SOLUTION 1,000 ML IV SCH (23:00)
[2023-02-28 01:19] LABS: CALCIUM 8.3 MG/DL (8.5-10.1); CREATININE SERUM 1.05 MG/DL (0.60-1.30); POTASSIUM 3.7 MMOL/L (3.6-5.0)
[2023-02-28] MEDS: POTASSIUM CL 10MEQ/50ML IVPB 50 ML IV SCH ×3 (03:02→06:05)
[2023-02-28] MEDS: 1/2 NS IV SOLUTION 1,000 ML IV SCH ×4 (04:43→14:58)
[2023-02-28 05:06] LABS: BASOPHILS % (AUTO) 0 % (0-10); EOSINOPHILS # (AUTO) 0.1 10^3/uL (0.0-0.3); EOSINOPHILS % (AUTO) 1 % (0-10); HEMATOCRIT 30 % (35-52); HEMOGLOBIN 9.1 g/dL (11.5-16.0); LYMPHOCYTES # (AUTO) 2.7 10^3/uL (1.0-4.0); LYMPHOCYTES % (AUTO) 32 % (12-44); MEAN CORPUSCULAR HGB CONC 31 g/dL (32-36); MEAN CORPUSCULAR VOLUME 73 fL (80-99); MEAN PLATELET VOLUME 10.6 fL (9.0-12.2); MONOCYTES # (AUTO) 0.7 10^3/uL (0.0-1.0); MONOCYTES % (AUTO) 9 % (0-12); NEUTROPHILS # (AUTO) 4.9 10^3/uL (1.8-7.8); NEUTROPHILS % (AUTO) 58 % (42-75); PLATELET COUNT 436 10^3/uL (130-400); WHITE BLOOD COUNT 8.5 10^3/uL (4.3-11.0)
[2023-02-28 05:12] LABS: MEAN CORPUSCULAR HEMOGLOBIN 22 pg (25-34)
[2023-02-28 05:14] LABS: ALBUMIN 3.2 GM/DL (3.2-4.5); POTASSIUM 3.7 MMOL/L (3.6-5.0)
[2023-02-28 05:15] LABS: CALCIUM 8.1 MG/DL (8.5-10.1)
[2023-02-28 05:16] LABS: POTASSIUM 3.6 MMOL/L (3.6-5.0)
[2023-02-28 05:17] LABS: CALCIUM 8.5 MG/DL (8.5-10.1)
[2023-02-28 05:18] LABS: BILIRUBIN,TOTAL 0.3 MG/DL (0.1-1.0)
[2023-02-28 05:19] LABS: PHOSPHORUS 2.1 MG/DL (2.3-4.7)
[2023-02-28 05:20] LABS: CREATININE SERUM 0.99 MG/DL (0.60-1.30)
[2023-02-28 05:22] LABS: CREATININE SERUM 1.03 MG/DL (0.60-1.30)
[2023-02-28 05:23] LABS: MAGNESIUM 1.5 MG/DL (1.6-2.4)
[2023-02-28] MEDS: D5 1/2 NS 1000 ML IV SOLUTION 1,000 ML IV SCH ×2 (05:45→09:53)
[2023-02-28] MEDS ORDERED: POTASSIUM CL 10MEQ/50ML IVPB 50 ML IV SCH ×2 (06:00)
[2023-02-28] MEDS ORDERED: MAGNESIUM 1 GM/100 ML IVPB 100 ML IV SCH ×2 (06:00)
[2023-02-28] MEDS ORDERED: KCL 20 MEQ TAB (K-DUR) PO SCH ×2 (06:00)
--- NOTE | 2023-02-28 06:12 | Tele-ICU Progress Note ---
Subjective Date Seen by a Provider: Feb 28, 2023 Time Seen by a Provider: 06:11 Subjective/Events-last exam called for potassium 3.7, phos 2.1, still on DKA protocol, will give Potassium phosphate Nash Mayen MD Sepsis Event Evaluation Height, Weight, BMI Height: 5'9.00" Weight: 255lbs. 0oz. [id number]; 26.00 BMI Method:Stated Exam Exam Patient acknowledged, consented, and participated in this virtual visit which was conducted using real time audio/video Vital Signs Date Time Temp Pulse Resp B/P (MAP) Pulse Ox O2 Delivery O2 Flow Rate FiO2 02/28/23 04:00 100 Room Air 02/28/23 03:42 36.1 02/28/23 03:00 85 114/67 (83) 100 02/28/23 02:00 91 115/76 (89) 100 02/28/23 01:00 89 16 110/69 (83) 100 02/28/23 00:33 87 02/28/23 00:00 99 Room Air 02/28/23 00:00 99 19 117/70 (86) 99 02/27/23 23:54 36.4 02/27/23 23:00 103 12 96/50 (65) 97 02/27/23 22:00 120 125/89 (101) 99 02/27/23 21:00 98 134/88 (103) 100 02/27/23 20:00 100 Room Air 02/27/23 20:00 36.9 112 22 124/77 (93) 100 Room Air 02/27/23 19:55 36.8 120 18 119/75 100 Room Air 02/27/23 19:04 36.8 02/27/23 19:00 111 02/27/23 17:59 36.8 120 18 119/75 (90) 100 I & O 02/28/23 07:00 Intake Total 2280 ml Balance 2280 ml Height & Weight Height: 5'9.00" Weight: 255lbs. 0oz. [id number]; 26.00 BMI Method:Stated General Appearance: No Apparent Distress, WD/WN HEENT: Normal ENT Inspection, Pharynx Normal Neck: Full Range of Motion, Normal Inspection, Non Tender, Supple Respiratory: Chest Non Tender, Lungs Clear, Normal Breath Sounds, No Accessory Muscle Use, No Respiratory Distress Cardiovascular: Regular Rate, Rhythm, No Murmur, Normal Peripheral Pulses, Tachycardia Capillary Refill: Less Than 3 Seconds Gastrointestinal: normal bowel sounds, non tender, soft Extremity: Normal Capillary Refill, Normal Inspection, Normal Range of Motion, Non Tender, No Calf Tenderness, No Pedal Edema Neurologic/Psychiatric: Alert, Oriented x3, No Motor/Sensory Deficits Skin: Normal Color, Warm/Dry Results Lab Laboratory Tests 02/27/23 18:25 02/28/23 00:55 02/28/23 02:57 02/28/23 04:37 Assessment/Plan Assessment/Plan will give potassium phosphate replacement Critical Care: Critically Ill Patient VENANCIO MAYEN MD Feb 28, 2023 06:12
[2023-02-28] MEDS ORDERED: POTASSIUM PHOSPHATE INJ 30 MM in NS (IVPB) 250 ML IV ONE (06:15)
[2023-02-28] MEDS: MAGNESIUM 1 GM/100 ML IVPB 100 ML IV SCH ×2 (06:52→08:28)
[2023-02-28] MEDS: NS IV 1000 ML 1,000 ML IV SCH (07:45)
--- NOTE | 2023-02-28 08:40 | History & Physical ---
HPI History of Present Illness: 22 yo female with type I diabetes, started feeling sick yesterday around 5 am, was vomiting repeatedly and couldn't keep blood sugar down. Admits diarrhea. Denies fever. She uses an insulin pump and states her baseline rate is 4 units/hour and 1 unit for every 5 carbs for all 3 meals. Denies running out of insulin or having trouble with pump recently. Denies any other signs of illness or changes in the last day prior to getting sick. This morning has back and leg pain. She says she always gets extremely achy with DKA, the toradol in the ER didn't help and tylenol isn't helping much, but she doesn't know of anything that usually helps either. Source: patient Date seen by provider: Feb 28, 2023 Time Seen by Provider: 08:38 Attending Physician Carlos Lyn DO PCP Admitting Physician: Pili Paniagua MD Attending Physician: Pili Paniagua MD Consult Date of Admission Feb 27, 2023 at 19:52 Home Medications Home Medications Reviewed patient Home Medication Reconciliation performed by pharmacy medication reconciliations denture technician and/or nursing. Patients Allergies have been reviewed. Allergies Coded Allergies: bismuth subsalicylate (Verified Allergy, Unknown, 08/29/22) latex (Unverified Allergy, Unknown, 01/09/23) [id number]-Hddugp Hx Patient Social History Smoking Status: Never a Smoker 2nd Hand Smoke Exposure: No Recent Hopitalizations: Yes (DKA) Alcohol Use?: Yes (occasional) Immunizations Up To Date Tetanus Booster (TDap): Less than 5yrs Influenza Vaccine Up-to-Date: No; Not Current First/Initial COVID19 Vaccinat: APR 2021 Second COVID19 Vaccination [place]: MAY 2021 Past Medical History PMHx: Type I DM Depression SurgHx: Denies Family Medical History Significant Family History: No Pertinent Family Hx Review of Systems ([facility]) Constitutional: No fever EENTM: nose congestion; No throat pain Respiratory: No cough, No short of breath Gastrointestinal: abdominal pain, diarrhea, nausea, vomiting Genitourinary: No dysuria Musculoskeletal: back pain, muscle pain Skin: No rash Psychiatric/Neurological: Depressed Reviewed Test Results Reviewed Test Results Lab Laboratory Tests Test 02/27/23 18:07 02/27/23 18:10 02/27/23 18:25 02/27/23 19:48 Range/Units Glucometer 361 H 306 H 70-110 MG/DL Urine Color YELLOW Urine Clarity CLEAR Urine pH 5.5 5-9 Urine Specific Horton >=1.030 1.016-1.022 Urine Protein 1+ H NEGATIVE Urine Glucose (UA) 2+ H NEGATIVE Urine Ketones 3+ H NEGATIVE Urine Nitrite NEGATIVE NEGATIVE Urine Bilirubin 1+ H NEGATIVE Urine Urobilinogen 0.2 < = 1.0 MG/DL Urine Leukocyte Esterase NEGATIVE NEGATIVE Urine RBC (Auto) TRACE-I H NEGATIVE Urine RBC 5-10 H /HPF Urine WBC 0-2 /HPF Urine Squamous Epithelial Cells 2-5 /HPF Urine Crystals NONE /LPF Urine Amorphous Sediment RARE ESTHELA URATES H /LPF Urine Bacteria FEW H /HPF Urine Casts PRESENT /LPF Urine Hyaline Casts 0-2 H /LPF Urine Mucus SMALL H /LPF Urine Culture Indicated YES White Blood Count 6.8 4.3-11.0 10^3/uL Red Blood Count 5.28 H 3.80-5.11 10^6/uL Hemoglobin 11.8 11.5-16.0 g/dL Hematocrit 39 35-52 % Mean Corpuscular Volume 73 L 80-99 fL Mean Corpuscular Hemoglobin 22 L 25-34 pg Mean Corpuscular Hemoglobin Concent 31 L 32-36 g/dL Red Cell Distribution Width 16.5 H 10.0-14.5 % Platelet Count 596 H 130-400 10^3/uL Mean Platelet Volume 10.2 9.0-12.2 fL Immature Granulocyte % (Auto) 0 % Neutrophils (%) (Auto) 65 42-75 % Lymphocytes (%) (Auto) 28 12-44 % Monocytes (%) (Auto) 6 0-12 % Eosinophils (%) (Auto) 0 0-10 % Basophils (%) (Auto) 1 0-10 % Neutrophils # (Auto) 4.4 1.8-7.8 10^3/uL Lymphocytes # (Auto) 1.9 1.0-4.0 10^3/uL Monocytes # (Auto) 0.4 0.0-1.0 10^3/uL Eosinophils # (Auto) 0.0 0.0-0.3 10^3/uL Basophils # (Auto) 0.0 0.0-0.1 10^3/uL Immature Granulocyte # (Auto) 0.0 0.0-0.1 10^3/uL Sodium Level 139 135-145 MMOL/L Potassium Level 3.9 3.6-5.0 MMOL/L Chloride Level 109 H 98-107 MMOL/L Carbon Dioxide Level 8 *L 21-32 MMOL/L Anion Gap 22 H 5-14 MMOL/L Blood Urea Nitrogen 9 7-18 MG/DL Creatinine 1.40 H 0.60-1.30 MG/DL Estimat Glomerular Filtration Rate 55 BUN/Creatinine Ratio 6 Glucose Level 373 H 70-105 MG/DL Calcium Level 9.1 8.5-10.1 MG/DL Corrected Calcium 8.7 8.5-10.1 MG/DL Total Bilirubin 0.3 0.1-1.0 MG/DL Aspartate Amino Transf (AST/SGOT) 19 5-34 U/L Alanine Aminotransferase (ALT/SGPT) 17 0-55 U/L Alkaline Phosphatase 222 H 40-136 U/L Total Protein 8.5 H 6.4-8.2 GM/DL Albumin 4.5 3.2-4.5 GM/DL Beta-Hydroxybutyrate (Chem panel) 8.29 H 0.00-0.27 MMOL/L Test 02/27/23 20:07 02/27/23 21:04 02/27/23 21:50 02/27/23 23:04 Range/Units Glucometer 350 H 400 *H 335 H 222 H 70-110 MG/DL Test 02/28/23 00:04 02/28/23 00:55 02/28/23 01:57 02/28/23 02:56 Range/Units Glucometer 296 H 182 H 293 H 197 H 70-110 MG/DL Sodium Level 138 135-145 MMOL/L Potassium Level 3.7 3.6-5.0 MMOL/L Chloride Level 114 H 98-107 MMOL/L Carbon Dioxide Level 10 L 21-32 MMOL/L Anion Gap 14 5-14 MMOL/L Blood Urea Nitrogen 8 7-18 MG/DL Creatinine 1.05 0.60-1.30 MG/DL Estimat Glomerular Filtration Rate 78 BUN/Creatinine Ratio 8 Glucose Level 211 H 70-105 MG/DL Calcium Level 8.3 L 8.5-10.1 MG/DL Test 02/28/23 02:57 02/28/23 04:36 02/28/23 04:37 02/28/23 05:34 Range/Units Sodium Level 138 136 135-145 MMOL/L Potassium Level 3.6 3.7 3.6-5.0 MMOL/L Chloride Level 113 H 114 H 98-107 MMOL/L Carbon Dioxide Level 9 *L 10 L 21-32 MMOL/L Anion Gap 16 H 12 5-14 MMOL/L Blood Urea Nitrogen 8 7 7-18 MG/DL Creatinine 1.03 0.99 0.60-1.30 MG/DL Estimat Glomerular Filtration Rate 80 84 BUN/Creatinine Ratio 8 7 Glucose Level 215 H 252 H 70-105 MG/DL Calcium Level 8.5 8.1 L 8.5-10.1 MG/DL Beta-Hydroxybutyrate (Chem panel) 5.64 H 0.00-0.27 MMOL/L Glucometer 250 H 227 H 70-110 MG/DL White Blood Count 8.5 4.3-11.0 10^3/uL Red Blood Count 4.05 3.80-5.11 10^6/uL Hemoglobin 9.1 #L 11.5-16.0 g/dL Hematocrit 30 L 35-52 % Mean Corpuscular Volume 73 L 80-99 fL Mean Corpuscular Hemoglobin 22 L 25-34 pg Mean Corpuscular Hemoglobin Concent 31 L 32-36 g/dL Red Cell Distribution Width 16.5 H 10.0-14.5 % Platelet Count 436 H 130-400 10^3/uL Mean Platelet Volume 10.6 9.0-12.2 fL Immature Granulocyte % (Auto) 1 % Neutrophils (%) (Auto) 58 42-75 % Lymphocytes (%) (Auto) 32 12-44 % Monocytes (%) (Auto) 9 0-12 % Eosinophils (%) (Auto) 1 0-10 % Basophils (%) (Auto) 0 0-10 % Neutrophils # (Auto) 4.9 1.8-7.8 10^3/uL Lymphocytes # (Auto) 2.7 1.0-4.0 10^3/uL Monocytes # (Auto) 0.7 0.0-1.0 10^3/uL Eosinophils # (Auto) 0.1 0.0-0.3 10^3/uL Basophils # (Auto) 0.0 0.0-0.1 10^3/uL Immature Granulocyte # (Auto) 0.0 0.0-0.1 10^3/uL Corrected Calcium 8.7 8.5-10.1 MG/DL Phosphorus Level 2.1 L 2.3-4.7 MG/DL Magnesium Level 1.5 L 1.6-2.4 MG/DL Total Bilirubin 0.3 0.1-1.0 MG/DL Aspartate Amino Transf (AST/SGOT) 18 5-34 U/L Alanine Aminotransferase (ALT/SGPT) 11 0-55 U/L Alkaline Phosphatase 150 H 40-136 U/L Total Protein 6.0 L 6.4-8.2 GM/DL Albumin 3.2 3.2-4.5 GM/DL Test 02/28/23 06:40 02/28/23 07:31 02/28/23 08:29 Range/Units Glucometer 237 H 216 H 208 H 70-110 MG/DL Physical Exam-([facility]) Physical Exam Vital Signs VS - Last 72 Hours, by Label 02/27/23 02/27/23 02/27/23 02/27/23 17:59 19:00 19:04 19:55 Temp 36.8 36.8 36.8 Pulse 120 111 120 Resp 18 18 B/P (MAP) 119/75 (90) 119/75 Pulse Ox 100 100 O2 Delivery Room Air 02/27/23 02/27/23 02/27/23 02/27/23 20:00 20:00 21:00 22:00 Temp 36.9 Pulse 112 98 120 Resp 22 B/P (MAP) 124/77 (93) 134/88 (103) 125/89 (101) Pulse Ox 100 100 100 99 O2 Delivery Room Air Room Air 02/27/23 02/27/23 02/28/23 02/28/23 23:00 23:54 00:00 00:00 Temp 36.4 Pulse 103 99 Resp 12 19 B/P (MAP) 96/50 (65) 117/70 (86) Pulse Ox 97 99 99 O2 Delivery Room Air 02/28/23 02/28/23 02/28/23 02/28/23 00:33 01:00 02:00 03:00 Pulse 87 89 91 85 Resp 16 B/P (MAP) 110/69 (83) 115/76 (89) 114/67 (83) Pulse Ox 100 100 100 02/28/23 02/28/23 02/28/23 02/28/23 03:42 04:00 04:00 05:00 Temp 36.1 Pulse 81 80 Resp 27 B/P (MAP) 108/74 (85) 130/84 (99) Pulse Ox 100 100 99 O2 Delivery Room Air Room Air Room Air 02/28/23 02/28/23 02/28/23 02/28/23 06:00 07:00 07:11 07:45 Temp 36.3 Pulse 85 87 86 Resp 17 22 B/P (MAP) 128/84 (99) 109/73 (85) Pulse Ox 94 99 O2 Delivery Room Air Room Air Room Air 02/28/23 02/28/23 02/28/23 02/28/23 08:00 08:00 09:00 10:00 Pulse 83 100 93 Resp 22 22 36 B/P (MAP) 109/74 (86) 127/74 (91) 120/75 (90) Pulse Ox 99 100 95 100 O2 Delivery Room Air Room Air Room Air Room Air Capillary Refill : Less Than 3 Seconds General Appearance: WD/WN, no apparent distress Respiratory: lungs clear, normal breath sounds Cardiovascular: regular rate, rhythm, no murmur Extremities: no pedal edema Neurologic/Psychiatric: alert, depressed affect Skin: normal color, warm/dry Assessment/Plan Assessment/Plan Admission Status: Inpatient Order (span 2 midnights) Reason for Inpatient Admission: DKA requiring insulin drip (1) DKA (diabetic ketoacidosis) Status: Acute Assessment & Plan: Started on insulin drip on admit, gap closed, will stop drip and start basal bolus insulin. Qualifiers: Qualified Codes: E10.10 - Type 1 diabetes mellitus with ketoacidosis without coma (2) Type 1 diabetes mellitus Status: Chronic Assessment & Plan: Uses pump at home, will resume on d/c pending dose changes. Qualifiers: Qualified Codes: E10.65 - Type 1 diabetes mellitus with hyperglycemia PILI PANIAGUA MD Feb 28, 2023 08:40
[2023-02-28] MEDS: KETOROLAC 30 MG/ML VIAL IVP PRN (09:24)
[2023-02-28] MEDS: ACETAMINOPHEN 500 MG TAB (TYLENOL) PO PRN (10:31)
[2023-02-28] MEDS: ENOXAPARIN 40 MG/0.4 ML (LOVENOX) SYR SQ SCH (11:35)
[2023-02-28] MEDS ORDERED: NAPR-1211 PO (11:50)
[2023-02-28] MEDS ORDERED: ACET-2267 PO (11:50)
[2023-02-28] MEDS ORDERED: BUPR-168 PO (11:50)
[2023-02-28] MEDS: inSUlin ASPART (NovoLOG) 1 UNIT/0.01 ML (CHARGE PER UNIT) SC SCH ×5 (13:07→20:57)
[2023-02-28 13:11] LABS: CALCIUM 7.9 MG/DL (8.5-10.1); CREATININE SERUM 0.87 MG/DL (0.60-1.30); POTASSIUM 3.6 MMOL/L (3.6-5.0)
[2023-02-28 18:03] VITALS: BP 127/76
[2023-02-28 20:26] VITALS: BP 129/87
[2023-02-28] MEDS ORDERED: diphenhydrAMINE 25 MG TAB (BENADRYL) PO PRN (21:00)
[2023-02-28] MEDS ORDERED: diphenhydrAMINE 25 MG TAB (BENADRYL) PO ONE (21:07)
[2023-02-28 23:53] VITALS: BP 121/71
[2023-03-01 04:00] VITALS: BP 113/74
[2023-03-01 05:10] LABS: BASOPHILS % (AUTO) 0 % (0-10); EOSINOPHILS # (AUTO) 0.1 10^3/uL (0.0-0.3); EOSINOPHILS % (AUTO) 2 % (0-10); HEMATOCRIT 29 % (35-52); HEMOGLOBIN 8.9 g/dL (11.5-16.0); LYMPHOCYTES % (AUTO) 54 % (12-44); MEAN CORPUSCULAR HEMOGLOBIN 22 pg (25-34); MEAN CORPUSCULAR HGB CONC 31 g/dL (32-36); MEAN CORPUSCULAR VOLUME 72 fL (80-99); MEAN PLATELET VOLUME 10.2 fL (9.0-12.2); MONOCYTES # (AUTO) 0.5 10^3/uL (0.0-1.0); MONOCYTES % (AUTO) 8 % (0-12); NEUTROPHILS # (AUTO) 1.9 10^3/uL (1.8-7.8); NEUTROPHILS % (AUTO) 35 % (42-75); PLATELET COUNT 402 10^3/uL (130-400); WHITE BLOOD COUNT 5.5 10^3/uL (4.3-11.0)
[2023-03-01] MEDS: inSUlin ASPART (NovoLOG) 1 UNIT/0.01 ML (CHARGE PER UNIT) SC SCH ×4 (05:18→12:59)
[2023-03-01 05:20] LABS: ALBUMIN 2.8 GM/DL (3.2-4.5); POTASSIUM 3.5 MMOL/L (3.6-5.0)
[2023-03-01 05:22] LABS: TOTAL PROTEIN 5.3 GM/DL (6.4-8.2)
[2023-03-01 05:24] LABS: BILIRUBIN,TOTAL 0.1 MG/DL (0.1-1.0)
[2023-03-01 05:26] LABS: CREATININE SERUM 0.76 MG/DL (0.60-1.30)
[2023-03-01 05:29] LABS: MAGNESIUM 1.8 MG/DL (1.6-2.4)
[2023-03-01 07:35] VITALS: BP 104/70
[2023-03-01] MEDS ORDERED: FERR325T18 PO (07:40)
[2023-03-01] MEDS ORDERED: KCL 20 MEQ TAB (K-DUR) PO NR (08:00)
[2023-03-01] MEDS: KETOROLAC 30 MG/ML VIAL IVP PRN (09:56)
[2023-03-01] MEDS: ACETAMINOPHEN 500 MG TAB (TYLENOL) PO PRN (09:56)
[2023-03-01] MEDS ORDERED: INSU100V SC (10:24)
--- NOTE | 2023-03-01 10:26 | Discharge Summary ---
Discharge Summary Hospital Course Problems/Diagnosis: (1) DKA (diabetic ketoacidosis) Status: Resolved Resolution Date/Time: 02/28/23 @ 10:25 Assessment & Plan: Started on insulin drip on admit, gap closed, stopped drip and started basal bolus insulin. Resumed pump on d/c. Humalog refilled as she reported about 1/2 vial left at home. Qualifiers: Qualified Codes: E10.10 - Type 1 diabetes mellitus with ketoacidosis without coma (2) Type 1 diabetes mellitus Status: Chronic Assessment & Plan: Uses pump at home, resumed on d/c with Humalog refill. Pt reported no lack of supplies or malfunctioning. 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 Start ferrous sulfate 325 mg daily. 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) (4) Depression Status: Chronic Assessment & Plan: Continue home Wellbutrin Qualifiers: Qualified Codes: F32.1 - Major depressive disorder, single episode, moderate Hospital Course Date of Admission: Feb 27, 2023 at 19:52 Admission Diagnosis : Family Physician/Provider: Carlos Lyn DO Date of Discharge: 03/01/23 Discharge Diagnosis: See problem list Hospital Course: See problem list Labs and Pending Lab Test: Laboratory Tests 02/28/23 10:31: Glucometer 219H 02/28/23 11:31: Glucometer 193H 02/28/23 12:32: Glucometer 152H 02/28/23 12:48: Sodium Level 136, Potassium Level 3.6, Chloride Level 113H, Carbon Dioxide Level 16L, Anion Gap 7, Blood Urea Nitrogen 5L, Creatinine 0.87, Estimat Glomerular Filtration Rate 98, BUN/Creatinine Ratio 6, Glucose Level 109H, Calcium Level 7.9L 02/28/23 15:38: Glucometer 149H 03/01/23 04:58: White Blood Count 5.5, Red Blood Count 4.03, Hemoglobin 8.9L, Hematocrit 29L, Mean Corpuscular Volume 72L, Mean Corpuscular Hemoglobin 22L, Mean Corpuscular H emoglobin Concent 31L, Red Cell Distribution Width 16.5H, Platelet Count 402H, Mean Platelet Volume 10.2, Immature Granulocyte % (Auto) 0, Neutrophils (%) (Auto) 35L, Lymphocytes (%) (Auto) 54H, Monocytes (%) (Auto) 8, Eosinophils (%) (Auto) 2, Basophils (%) (Auto) 0, Neutrophils # (Auto) 1.9, Lymphocytes # (Auto) 3.0, Monocytes # (Auto) 0.5, Eosinophils # (Auto) 0.1, Basophils # (Auto) 0.0, Immature Granulocyte # (Auto) 0.0, Sodium Level 143, Potassium Level 3.5L, Chloride Level 118H, Carbon Dioxide Level 19L, Anion Gap 6, Blood Urea Nitrogen 7, Creatinine 0.76, Estimat Glomerular Filtration Rate 115, BUN/Creatinine Ratio 9, Glucose Level 72, Calcium Level 8.0L, Corrected Calcium 9.0, Phosphorus Level 3.0, Magnesium Level 1.8, Total Bilirubin 0.1, Aspartate Amino Transf (AST/SGOT) 14, Alanine Aminotransferase (ALT/SGPT) 9, Alkaline Phosphatase 137H, Total Protein 5.3L, Albumin 2.8L 03/01/23 05:12: Glucometer 61L 03/01/23 08:24: Glucometer 60*L 03/01/23 09:28: Glucometer 142H Microbiology 02/27/23 MRSA Screen - Final, Complete MRSA not isolated 02/27/23 Urine Culture - Final, Complete Strep, Beta Hemolytic Group B Mixed Bacterial Lidya Home Meds Active Humalog (Insulin Lispro) 100 Unit/Ml Vial 0 HI UD MDD 150 units USES VIA PUMP Ferrous Sulfate 325 Mg (65 Mg Iron) Tablet 325 Mg PO DAILY Reported Tylenol Extra Strength (Acetaminophen) 500 Mg Tablet 1,000 Mg PO Q8H PRN Bupropion HCl 75 Mg Tablet 75 Mg PO BID EC-Naproxen (Naproxen) 500 Mg Tablet.dr 500 Mg PO BID PRN Ibuprofen 200 Mg Tablet 400 Mg PO Q8H PRN Assessment/Pt DC Instructions Follow up with Dr. Lyn within one week of discharge. Discharge Diet: ADA Diet Activity as Tolerated: Yes Discharge Physical Examination Allergies: Coded Allergies: bismuth subsalicylate (Verified Allergy, Unknown, 08/29/22) latex (Unverified Allergy, Unknown, 5/2/23) General Appearance: No Apparent Distress, WD/WN Respiratory: Lungs Clear, Normal Breath Sounds Cardiovascular: Regular Rate, Rhythm, No Murmur Gastrointestinal: Normal Bowel Sounds, Non Tender, Soft Extremity: No Pedal Edema Skin: Normal Color, Warm/Dry Neurologic/Psychiatric: Alert, Normal Mood/Affect PILI SWANSON MD Mar 01, 2023 10:26
[2023-03-01 11:27] VITALS: BP 115/78
[2023-03-01] MEDS: ENOXAPARIN 40 MG/0.4 ML (LOVENOX) SYR SQ SCH (13:03)
[2023-03-01 13:50] VITALS: BP 115/78
== END 2023-03-01 13:50 | disposition home or self-care (01) ==
LOC: EDUNIT# 17:45 → ER 17:46 → ICU 19:52 → UNDOADMOB 19:52 → ICU 20:00 → 4TH 02-28 16:31 → UNDODISOB 03-01 13:50
PROVIDERS: ADMIT Family Medicine; ATTEND Family Medicine
DX: E10.10 Type 1 diabetes mellitus with ketoacidosis without coma (principal); E10.65 Type 1 diabetes mellitus with hyperglycemia; D50.0 Iron deficiency anemia secondary to blood loss (chronic); F32.A Depression, unspecified; N39.0 Urinary tract infection, site not specified; F17.290 Nicotine dependence, other tobacco product, uncomplicated
CPT/HCPCS: 36415; 80048; 80053; 81000; 82010; 82947; 83735; 84100; 84703; 85025; 87077; 87081; 87088; 96366; 96372; 96375; 96376; G0378

== ENCOUNTER 2023-04-01 11:43 | Inpatient (IN) | payer BC, MEDICAID ==
[~2023-04-01] VITALS: Ht 175.3 cm; Wt 97.1 kg
[~2023-04-01 11:43] MED LIST changes: +BUPR-168 PO; +FERR325T18 PO; +NAPR-1211 PO
[2023-04-01] MEDS ORDERED: NS IV 1000 ML 1,000 ML IV STA (11:48)
--- NOTE | 2023-04-01 11:53 | ED General ---
General Chief Complaint: Respiratory Problems Stated Complaint: PAIN/BLOOD SUGAR PROBLEMS/SOA Source of Information: Patient Exam Limitations: No Limitations (CAN GRANT) History of Present Illness Date Seen by Provider: Apr 01, 2023 Time Seen by Provider: 11:54 Initial Comments Patient is a 22-year-old female with a history of type 1 diabetes who presents to ED for increased blood sugar, vomiting, fatigue, weakness, body pain and shortness of breath. Symptoms started this morning around 6 AM. Started feeling weak and fatigued. Frequent urination. She checked her blood sugar which read high. She did take her insulin which did decrease her blood sugar to around 193. 201 blood sugar on arrival. She vomited 3-4 times. She reports diffuse body pain, back pain and shortness of breath. She denies of any chest p ain or cough or flulike symptoms. She states she is urinating quite frequently. She is concerned that she is currently in DKA. She states she has been taking her blood sugar and medication on a regular basis. Denies dysuria, hematuria, fever, visual changes, unilateral muscle weakness or sensory changes (CAN GRANT) Allergies and Home Medications Allergies Coded Allergies: bismuth subsalicylate (Verified Allergy, Unknown, 08/29/22) latex (Unverified Allergy, Unknown, 01/09/23) Patient Home Medication List Home Medication List Reviewed: Yes (CAN GARNT) Acetaminophen (Tylenol Extra Strength) 500 Mg Tablet, 1,000 MG PO Q8H PRN for PAIN-MILD (1-4), (Reported) Entered as Reported by: COLT BOURNE on 02/28/23 1150 Last Action: Reviewed Bupropion HCl (Bupropion HCl) 75 Mg Tablet, 75 MG PO BID, (Reported) Entered as Reported by: COLT BOURNE on 02/28/23 1150 Ibuprofen (Ibuprofen) 200 Mg Tablet, 400 MG PO Q8H PRN for PAIN-MILD (1-4), (Reported) Entered as Reported by: COLT BOURNE on 01/10/23 1134 Last Action: Reviewed Insulin Lispro (Humalog) 100 Unit/Ml Vial, 0 SC UD Prescribed by: PILI SWANSON on 03/01/23 1024 Last Action: Reviewed Oxymetazoline HCl (Nasal [place]) Unknown Strength Mist, Unknown Dose NS PRN, (Reported) Entered as Reported by: MAGO BONILLA on 04/01/23 1735 Last Action: New Order Discontinued Medications Ferrous Sulfate (Ferrous Sulfate) 325 Mg (65 Mg Iron) Tablet, 325 MG PO DAILY Discontinued Reason: No Longer Taking Prescribed by: PILI SWANSON on 03/01/23 0740 Last Action: Discontinued Naproxen (EC-Naproxen) 500 Mg Tablet.dr, 500 MG PO BID PRN for PAIN-MILD (1-4), (Reported) Discontinued Reason: No Longer Taking Entered as Reported by: COLT BOURNE on 02/28/23 1150 Last Action: Discontinued Review of Systems Review of Systems Constitutional: No diaphoresis, No dizziness, No fever; malaise, weakness EENTM: No ear pain, No blurred vision, No double vision Respiratory: No cough, No dyspnea on exertion; short of breath Cardiovascular: No chest pain, No edema Gastrointestinal: No abdominal pain, No nausea Genitourinary: No decreased output, No discharge Musculoskeletal: No joint pain Skin: No change in color, No change in hair/nails (CAN GRANT) All Other Systems Reviewed Negative Unless Noted: Yes (CAN GRANT) Past Qhegwqt-Tnkuoj-Coptrm Hx Immunizations Up To Date Tetanus Booster (TDap): Less than 5yrs PED Vaccines UTD: Yes First/Initial COVID19 Vaccinat: APR 2021 Second COVID19 Vaccination [place]: MAY 2021 (CAN GRANT) Seasonal Allergies Seasonal Allergies: No (CAN GRANT) Past Medical History Surgery/Hospitalization HX: MULTIPLE ADMISSIONS FOR DKA TREATMENT Surgeries: No Respiratory: No Currently Using CPAP: No Currently Using BIPAP: No Cardiac: Yes (TACHYCARDIA) Palpitations Neurological: No Reproductive Disorders: No Female Reproductive Disorders: Denies Sexually Transmitted Disease: No HIV/AIDS: No Genitourinary: Yes Bladder Infection Gastrointestinal: Yes (CANNABIS HYPEREMESIS; CHRONIC 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 DX AGE 12) Diabetes, Insulin dep HEENT: No Loss of Vision: Denies Hearing Impairment: Denies Cancer: No Psychosocial: Yes Anxiety, Depression Integumentary: No Blood Disorders: No Adverse Reaction/Blood Tranf: No (CAN GRANT) Family Medical History No Pertinent Family Hx (CAN GRANT) Physical Exam Vital Signs Vital Signs - First Documented 04/01/23 11:47 Temp 35.8 Pulse 139 Resp 24 B/P (MAP) 118/79 (92) O2 Delivery Room Air (SANTI NOBLES MD) Vital Signs Capillary Refill : (CAN GRANT) Height, Weight, BMI Height: 5'9.00" Weight: 255lbs. 0oz. 115.673101iu; 25.70 BMI Method:Stated General Appearance: No Apparent Distress, WD/WN Eyes: Bilateral Eye Normal Inspection, Bilateral Eye PERRL, Bilateral Eye EOMI HEENT: PERRL/EOMI, TMs Normal, Normal ENT Inspection, Pharynx Normal Neck: Full Range of Motion, Normal Inspection, Non Tender, Supple Respiratory: Chest Non Tender, Lungs Clear, Normal Breath Sounds Cardiovascular: No Edema, No Gallop, No JVD, No Murmur, Tachycardia Gastrointestinal: Normal Bowel Sounds, No Organomegaly, No Pulsatile Mass, Non Tender, Soft Extremity: Normal Capillary Refill, Normal Inspection, Normal Range of Motion, Non Tender Neurologic/Psychiatric: Alert, Oriented x3, No Motor/Sensory Deficits, Normal Mood/Affect, radiology physician assistant II-XII Norm as Tested Skin: Normal Color, Warm/Dry (CAN GRANT) Focused Exam Lactate Level 04/01/23 11:53: Lactic Acid Level 6.01*H (SANTI NOBLES MD) Lactic Acid Level Laboratory Tests Test 04/01/23 11:53 Lactic Acid Level 6.01 MMOL/L (0.50-2.00) *H (SANTI NOBLES MD) Procedures/Interventions Date of ETT Placement: Feb 18, 2021 Time of ETT Placement: 1431 (CAN GRANT) Progress/Results/Core Measures Suspected Sepsis SIRS Temperature: Pulse: Respiratory Rate: Laboratory Tests 04/01/23 11:53: White Blood Count 8.3 Blood Pressure / Mean: 04/01/23 11:53: Lactic Acid Level 6.01*H Laboratory Tests 04/01/23 11:53: Creatinine 1.15, Platelet Count 651H, Total Bilirubin 0.4 (CAN GRANT) Results/Orders Lab Results Laboratory Tests Test 04/01/23 11:50 04/01/23 11:53 04/01/23 12:36 Range/Units Glucometer 201 H 70-110 MG/DL White Blood Count 8.3 4.3-11.0 10^3/uL Red Blood Count 4.93 3.80-5.11 10^6/uL Hemoglobin 11.0 L 11.5-16.0 g/dL Hematocrit 36 35-52 % Mean Corpuscular Volume 74 L 80-99 fL Mean Corpuscular Hemoglobin 22 L 25-34 pg Mean Corpuscular Hemoglobin Concent 30 L 32-36 g/dL Red Cell Distribution Width 17.4 H 10.0-14.5 % Platelet Count 651 H 130-400 10^3/uL Mean Platelet Volume 9.6 9.0-12.2 fL Immature Granulocyte % (Auto) 1 % Neutrophils (%) (Auto) 74 42-75 % Lymphocytes (%) (Auto) 20 12-44 % Monocytes (%) (Auto) 4 0-12 % Eosinophils (%) (Auto) 0 0-10 % Basophils (%) (Auto) 1 0-10 % Neutrophils # (Auto) 6.1 1.8-7.8 10^3/uL Lymphocytes # (Auto) 1.7 1.0-4.0 10^3/uL Monocytes # (Auto) 0.4 0.0-1.0 10^3/uL Eosinophils # (Auto) 0.0 0.0-0.3 10^3/uL Basophils # (Auto) 0.0 0.0-0.1 10^3/uL Immature Granulocyte # (Auto) 0.1 0.0-0.1 10^3/uL Sodium Level 136 135-145 MMOL/L Potassium Level 4.5 3.6-5.0 MMOL/L Chloride Level 104 98-107 MMOL/L Carbon Dioxide Level 10 L 21-32 MMOL/L Anion Gap 22 H 5-14 MMOL/L Blood Urea Nitrogen 12 7-18 MG/DL Creatinine 1.15 0.60-1.30 MG/DL Estimat Glomerular Filtration Rate 70 BUN/Creatinine Ratio 10 Glucose Level 214 H 70-105 MG/DL Lactic Acid Level 6.01 *H 0.50-2.00 MMOL/L Calcium Level 9.6 8.5-10.1 MG/DL Corrected Calcium 9.6 8.5-10.1 MG/DL Total Bilirubin 0.4 0.1-1.0 MG/DL Aspartate Amino Transf (AST/SGOT) 26 5-34 U/L Alanine Aminotransferase (ALT/SGPT) 22 0-55 U/L Alkaline Phosphatase 254 H 40-136 U/L Total Protein 7.7 6.4-8.2 GM/DL Albumin 4.0 3.2-4.5 GM/DL Lipase 35 8-78 U/L Beta-Hydroxybutyrate (Chem panel) 4.00 H 0.00-0.27 MMOL/L Serum Test, Qualitative NEGATIVE NEGATIVE Urine Color YELLOW Urine Clarity SL CLOUDY Urine pH 6.0 5-9 Urine Specific [place] >=1.030 1.016-1.022 Urine Protein 1+ H NEGATIVE Urine Glucose (UA) 3+ H NEGATIVE Urine Ketones 3+ H NEGATIVE Urine Nitrite NEGATIVE NEGATIVE Urine Bilirubin 3+ H NEGATIVE Urine Urobilinogen 1.0 < = 1.0 MG/DL Urine Leukocyte Esterase NEGATIVE NEGATIVE Urine RBC (Auto) TRACE-I H NEGATIVE Urine RBC 0-2 /HPF Urine WBC 2-5 /HPF Urine Squamous Epithelial Cells 10-25 H /HPF Urine Crystals PRESENT H /LPF Urine Amorphous Sediment FEW ESTHELA URATES H /LPF Urine Bacteria MODERATE H /HPF Urine Casts PRESENT /LPF Urine Hyaline Casts 25-50 H /LPF Urine Granular Casts 5-10 H /LPF Urine Mucus SMALL H /LPF Urine Yeast FEW H /HPF Urine Culture Indicated YES (SANTI NOBLES MD) Medications Given in ED Current Medications Medications Dose Ordered Sig/Thierno Route Start Time Stop Time Status Last Admin Dose Admin Ondansetron HCl 4 mg ONCE ONCE IVP 04/01/23 12:00 04/01/23 12:01 DC 04/01/23 12:05 4 MG (SANTI NOBLES MD) Vital Signs/I&O 04/01/23 11:47 Temp 35.8 Pulse 139 Resp 24 B/P (MAP) 118/79 (92) O2 Delivery Room Air (SANTI NOBLES MD) Vital Signs/I&O Capillary Refill : (CAN GRANT) ECG Comment Sinus tachycardia with short DE interval, moderate T wave abnormality. 125 bpm, QRS duration 86 MS, QTc 410 MS (CAN GRANT) Departure Communication (PCP) Patient is a 22-year-old female history of DKA who presents ED with body pains, short of breath weakness fatigue elevated blood sugar. Reviewed previous ER visits, H&P, hospitalist H&P. History of admission secondary to DKA. Concern for DKA today. General lab work, beta hydroxybutyrate, urinalysis and lactic acid was ordered. She was tachycardic. Started on a liter of fluid. Vomiting today was given Zofran. She is afebrile. Stable blood pressure. CBC showed hemoglobin 11. Normal white blood count. Chemistry showed anion gap 22, bicarb 10. Normal kidney function. Lactic acid 6. Beta hydroxybutyrate of 4. Urinalysis positive for ketones protein suggesting DKA. Blood sugar was 201. Patient will require admission for DKA. Patient was discussed with Dr. Diamond who will put in acute orders. Start on insulin drip. No evidence of infection in urine. Negative for . Patient states she has been taking her insulin. (CAN GRANT) Impression Primary Impression: DKA (diabetic ketoacidosis) Disposition: ADMITTED INPATIENT Condition: Stable Admissions Decision to Admit Reason: Admit from ER (General) Decision to Admit/Date: Apr 01, 2023 Time/Decision to Admit Time: 12:35 (CAN GRANT) Departure-Patient Inst. Referrals: COLT LAMBERT DO (PCP/Family) Primary Care Physician ATTENDING PHYSICIAN NOTE: I was physically present as attending physician in the emergency department during the care of this patient, but I was not directly involved in the decision making or delivery of care for this patient. (SANTI NOBLES MD) CAN GRANT Apr 01, 2023 11:53 SANTI NOBLES MD Apr 01, 2023 18:45
[2023-04-01] MEDS ORDERED: ONDANSETRON 4 MG/2 ML (SDV) Z0FRAN IVP ONE ×2 (12:00)
[2023-04-01 12:04] LABS: BASOPHILS % (AUTO) 1 % (0-10); EOSINOPHILS % (AUTO) 0 % (0-10); HEMATOCRIT 36 % (35-52); LYMPHOCYTES # (AUTO) 1.7 10^3/uL (1.0-4.0); LYMPHOCYTES % (AUTO) 20 % (12-44); MEAN CORPUSCULAR HEMOGLOBIN 22 pg (25-34); MEAN CORPUSCULAR HGB CONC 30 g/dL (32-36); MEAN CORPUSCULAR VOLUME 74 fL (80-99); MEAN PLATELET VOLUME 9.6 fL (9.0-12.2); MONOCYTES # (AUTO) 0.4 10^3/uL (0.0-1.0); MONOCYTES % (AUTO) 4 % (0-12); NEUTROPHILS # (AUTO) 6.1 10^3/uL (1.8-7.8); NEUTROPHILS % (AUTO) 74 % (42-75); PLATELET COUNT 651 10^3/uL (130-400); WHITE BLOOD COUNT 8.3 10^3/uL (4.3-11.0)
[2023-04-01 12:15] LABS: POTASSIUM 4.5 MMOL/L (3.6-5.0)
[2023-04-01 12:16] LABS: CALCIUM 9.6 MG/DL (8.5-10.1)
[2023-04-01 12:17] LABS: TOTAL PROTEIN 7.7 GM/DL (6.4-8.2)
[2023-04-01 12:19] LABS: BILIRUBIN,TOTAL 0.4 MG/DL (0.1-1.0)
[2023-04-01 12:21] LABS: CREATININE SERUM 1.15 MG/DL (0.60-1.30)
--- NOTE | 2023-04-01 12:24 | Diagnostic Imaging Report ---
INDICATION: Shortness of breath. FINDINGS: The lungs are clear. No failure, effusion, or pneumothorax. IMPRESSION: Negative. Dictated by: Dictated on workstation # [id number]
[2023-04-01 13:05] LABS: CLARITY,URINE SL CLOUDY; COLOR,URINE YELLOW; GLUCOSE, URINE (UA) 3+ (NEGATIVE); KETONES,URINE 3+ (NEGATIVE); LEUKOCYTE ESTERASE ,URINE NEGATIVE (NEGATIVE); NITRITE,URINE NEGATIVE (NEGATIVE); PROTEIN,URINE 1+ (NEGATIVE)
[2023-04-01 13:20] LABS: AMORPHOUS SEDIMENT,UR FEW AMOR URATES /LPF; BACTERIA,URINE MODERATE /HPF; RBC,URINE 0-2 /HPF
[2023-04-01 13:21] LABS: HYALINE CASTS, URINE 25-50 /LPF; YEAST,URINE FEW /HPF
[2023-04-01] MEDS ORDERED: diphenhydrAMINE 50 MG/ML INJ (BENADRYL) IVP PRN (15:00)
[2023-04-01] MEDS ORDERED: ANTACID SUSP 30 ML UDC (MYLANTA) PO PRN (15:00)
[2023-04-01] MEDS ORDERED: MILK OF MAGNESIA 400 MG/5 ML 30 ML UDC PO PRN (15:00)
[2023-04-01] MEDS ORDERED: ONDANSETRON 4 MG (ZOFRAN) ORAL DISSOLVE TAB PO PRN (15:00)
[2023-04-01] MEDS ORDERED: NS IV 500 ML 500 ML IV PRN (15:00)
[2023-04-01] MEDS ORDERED: HYDROmorphone 2 MG/ML VIAL (DILAUDID) IV PRN (15:00)
[2023-04-01] MEDS ORDERED: ONDANSETRON 4 MG/2 ML (SDV) Z0FRAN IV PRN (15:00)
[2023-04-01] MEDS ORDERED: LACTULOSE SYRUP 10GM/15ML (ENULOSE) 30ML UDC PO PRN (15:00)
[2023-04-01] MEDS ORDERED: ACETAMINOPHEN 325 MG TABLET PO PRN (15:00)
[2023-04-01] MEDS ORDERED: NS IV 1000 ML 1,000 ML IV SCH (15:00)
[2023-04-01] MEDS ORDERED: MELATONIN 3 MG TABLET PO PRN (15:00)
[2023-04-01] MEDS ORDERED: CALCIUM CARBONATE 500 MG CHEW TABLET PO PRN (15:00)
[2023-04-01] MEDS ORDERED: BISACODYL 10 MG SUPPOSITORY PR PRN (15:00)
[2023-04-01] MEDS ORDERED: polyethylene glycoL POWDER 17 GM (MIRALAX) PACK PO PRN (15:00)
[2023-04-01 15:21] VITALS: BP 118/79
[2023-04-01] MEDS ORDERED: RT-ALBUTEROL SULF 2.5 MG/3 ML PRE-MIX VIAL INH PRN (15:30)
[2023-04-01] MEDS: IBUPROFEN 600 MG (MOTRIN) TAB PO SCH ×2 (15:38→19:57)
[2023-04-01] MEDS: POTASSIUM CL 10MEQ/50ML IVPB 50 ML IV SCH ×6 (15:44→21:23)
[2023-04-01] MEDS: ENOXAPARIN 40 MG/0.4 ML (LOVENOX) SYR SC SCH (15:44)
[2023-04-01] MEDS: 1/2 NS IV SOLUTION 1000 ML 1,000 ML IV SCH ×3 (16:43→23:00)
[2023-04-01] MEDS ORDERED: OXYM30MI9 NS (17:35)
[2023-04-01 17:39] LABS: CALCIUM 8.6 MG/DL (8.5-10.1); CREATININE SERUM 1.15 MG/DL (0.60-1.30); POTASSIUM 4.8 MMOL/L (3.6-5.0)
--- NOTE | 2023-04-01 18:12 | Tele-ICU Consult ---
History of Present Illness History of Present Illness Date Seen by Provider: Apr 01, 2023 Time Seen by Provider: 18:08 Date of Admission History of Present Illness (Tele-ICU Physician , consultation as per request of PCP Service provided via interactive audio and video teleUP Online E-CARE system to a patient admitted to ICU bed in [facility]. Available chart/ vitals / labs / Images reviewed H&P is from ER notes Patient's information available about PMH, Shx, Fhx allergy reviewed inEMR. ROS as per chart and RN report Now in ICU, hemodynamically stable Video assessment done using teleICU camera, rest of exam as per RN Discussed with RN. A/P DKA -Unclear precipitant, No suspicious for new infection_ *Insulin drip, continue to monitor for resolution of acidosis, AG and electrolytes. Continue hydration. *Tx Gastroparesis UA unremarkable Plans in collaboration with bedside consultants and IM MDs. Discussed with RN to reach out if any questions or concerns A total of 5 minutes of critical care time was devoted to this patient today, required to treat and/or prevent further deterioration of critical care condition ( as above ) . I am remotely monitoring this patient from another state. I am unable to do the bedside exam, and history/physical and pertinent information is taken from other notes in the computer and bedside staff. . Allergies and Home Medications Allergies Coded Allergies: bismuth subsalicylate (Verified Allergy, Unknown, 08/29/22) latex (Unverified Allergy, Unknown, 01/09/23) Home Medications Acetaminophen 500 Mg Tablet, 1,000 MG PO Q8H PRN for PAIN-MILD (1-4), (Reported) Bupropion HCl 75 Mg Tablet, 75 MG PO BID, (Reported) Ibuprofen 200 Mg Tablet, 400 MG PO Q8H PRN for PAIN-MILD (1-4), (Reported) Insulin Lispro 100 Unit/Ml Vial, 0 SC UD USES VIA PUMP Prescribed by: PILI SWANSON on 03/01/23 1024 Oxymetazoline HCl Unknown Strength Mist, Unknown Dose NS PRN, (Reported) Past Medical/Social/Family Hx Patient Social History Tobacco Use?: No Use of E-Cig and/or Vaping dev: Yes E-Cig or Vaping type used: Nicotine E-Cig and/or Vaping Freq: Current Everyday User Substance use?: No Alcohol Use?: Yes Alcohol Frequency: Once in a while Pt stated abuse/neglect: No Immunizations Up To Date Influenza Vaccine Up-to-Date: No; Not Current First/Initial COVID19 Vaccinat: APR 2021 Second COVID19 Vaccination [place]: MAY 2021 Tetanus Booster (TDap): Less Than 5 Years Hepatitis A: Yes Hepatitis B: Yes TB Skin Test: None Current Status status: No Advance Directives: No Communicates: Verbally Primary Language: Italian Preferred Spoken Language: Italian Is interpretation needed?: No Implanted or Applied Medical D: None Past Medical History PMHx: Type I DM Depression SurgHx: Denies Review of Systems Constitutional: other Focused Exam Lactate Level 04/01/23 11:53: Lactic Acid Level 6.01*H 04/01/23 17:08: Lactic Acid Level 3.63*H Height, Weight, BMI Height: 5'9.00" Weight: 255lbs. 0oz. 115.216334vi; 27.82 BMI Method:Stated Lactic Acid Level Laboratory Tests Test 04/01/23 17:08 Lactic Acid Level 3.63 MMOL/L (0.50-2.00) *H Exam Exam Patient acknowledged, consented, and participated in this virtual visit which was conducted using real time audio/video Vital Signs Date Time Temp Pulse Resp B/P (MAP) Pulse Ox O2 Delivery O2 Flow Rate FiO2 04/01/23 18:00 120 19 100 Room Air 04/01/23 17:00 93 21 119/79 (92) 100 Room Air 04/01/23 16:00 120 19 100 Room Air 04/01/23 16:00 36.7 04/01/23 15:54 122 04/01/23 15:30 116 25 100 Room Air 04/01/23 15:21 35.8 139 04/01/23 15:00 100 Room Air 04/01/23 11:47 35.8 139 24 118/79 (92) Room Air Height & Weight Height: 5'9.00" Weight: 255lbs. 0oz. 115.759180cb; 27.82 BMI Method:Stated General Appearance: No Apparent Distress, WD/WN, Other HEENT: PERRL/EOMI, TMs Normal, Normal ENT Inspection, Pharynx Normal Neck: Full Range of Motion, Normal Inspection, Non Tender, Supple Respiratory: Chest Non Tender, Lungs Clear, Normal Breath Sounds Cardiovascular: No Edema, No Gallop, No JVD, No Murmur, Tachycardia Extremity: Normal Capillary Refill, Normal Inspection, Normal Range of Motion, Non Tender Neurologic/Psychiatric: Alert, Oriented x3, No Motor/Sensory Deficits, Normal Mood/Affect, lead front end developer II-XII Norm as Tested Skin: Normal Color, Warm/Dry Results Lab Laboratory Tests 04/01/23 11:53 04/01/23 17:08 Assessment/Plan Assessment/Plan 1 FRANTZ ENCISO MD Apr 01, 2023 18:12
[2023-04-01] MEDS: D5 1/2 NS 1,000 ML IV 1,000 ML IV SCH (18:43)
[2023-04-01 19:46] LABS: CALCIUM 8.2 MG/DL (8.5-10.1); CREATININE SERUM 0.96 MG/DL (0.60-1.30); POTASSIUM 4.5 MMOL/L (3.6-5.0)
[2023-04-01] MEDS: SENNOSIDES 8.6 MG (SENOKOT) TAB PO SCH (19:57)
[2023-04-01] MEDS: DOCUSATE SODIUM 100 MG (COLACE) CAP PO SCH (19:57)
[2023-04-01] MEDS: diphenhydrAMINE 25 MG TAB (BENADRYL) PO PRN (21:08)
[2023-04-01 23:33] LABS: POTASSIUM 3.9 MMOL/L (3.6-5.0)
[2023-04-01 23:34] LABS: CALCIUM 7.8 MG/DL (8.5-10.1)
[2023-04-01 23:38] LABS: CREATININE SERUM 0.97 MG/DL (0.60-1.30)
[2023-04-02] MEDS: POTASSIUM CL 10MEQ/50ML IVPB 50 ML IV SCH ×11 (00:32→22:04)
[2023-04-02] MEDS: D5 1/2 NS 1,000 ML IV 1,000 ML IV SCH ×6 (00:35→21:48)
[2023-04-02] MEDS: IBUPROFEN 600 MG (MOTRIN) TAB PO SCH ×4 (03:00→20:45)
[2023-04-02] MEDS: 1/2 NS IV SOLUTION 1000 ML 1,000 ML IV SCH ×6 (03:00→23:05)
[2023-04-02 04:36] LABS: BASOPHILS % (AUTO) 0 % (0-10); EOSINOPHILS # (AUTO) 0.1 10^3/uL (0.0-0.3); EOSINOPHILS % (AUTO) 2 % (0-10); HEMATOCRIT 26 % (35-52); HEMOGLOBIN 7.9 g/dL (11.5-16.0); LYMPHOCYTES # (AUTO) 3.4 10^3/uL (1.0-4.0); LYMPHOCYTES % (AUTO) 46 % (12-44); MEAN CORPUSCULAR HEMOGLOBIN 22 pg (25-34); MEAN CORPUSCULAR HGB CONC 31 g/dL (32-36); MEAN CORPUSCULAR VOLUME 73 fL (80-99); MONOCYTES # (AUTO) 0.6 10^3/uL (0.0-1.0); MONOCYTES % (AUTO) 8 % (0-12); NEUTROPHILS # (AUTO) 3.2 10^3/uL (1.8-7.8); NEUTROPHILS % (AUTO) 43 % (42-75); PLATELET COUNT 436 10^3/uL (130-400); WHITE BLOOD COUNT 7.4 10^3/uL (4.3-11.0)
[2023-04-02] MEDS: diphenhydrAMINE 25 MG TAB (BENADRYL) PO PRN ×3 (05:04→23:36)
[2023-04-02 05:06] LABS: ALBUMIN 2.9 GM/DL (3.2-4.5); BILIRUBIN,TOTAL 0.1 MG/DL (0.1-1.0); CALCIUM 7.8 MG/DL (8.5-10.1); CREATININE SERUM 0.81 MG/DL (0.60-1.30); MAGNESIUM 1.8 MG/DL (1.6-2.4); PHOSPHORUS 2.9 MG/DL (2.3-4.7); TOTAL PROTEIN 5.7 GM/DL (6.4-8.2)
[2023-04-02] MEDS: KCL 20 MEQ TAB (K-DUR) PO SCH (05:15)
[2023-04-02] MEDS: MAGNESIUM 1 GM/100 ML IVPB 100 ML IV SCH ×3 (05:15→06:26)
[2023-04-02 08:08] LABS: BILIRUBIN,URINE 3+ (NEGATIVE)
[2023-04-02] MEDS: DOCUSATE SODIUM 100 MG (COLACE) CAP PO SCH ×2 (09:00→21:20)
[2023-04-02] MEDS: SENNOSIDES 8.6 MG (SENOKOT) TAB PO SCH ×2 (09:00→21:21)
[2023-04-02] MEDS ORDERED: INSU100V39 SQ (09:43)
--- NOTE | 2023-04-02 10:25 | Tele-ICU Progress Note ---
Subjective Date Seen by a Provider: Apr 02, 2023 Time Seen by a Provider: 10:24 Subjective/Events-last exam (Tele-ICU Physician , Progress Note ) Service provided via interactive audio and video telecommunications E-CARE system to a patient admitted to ICU bed in [facility]. Patient is seen today due to persistent need of ICU care Available chart/ vitals / labs / Images reviewed Video assessment done using teleICU camera, rest of exam as per RN Discussed with RN Events overnight : Afebrile hemodynamically stable Respiratory - ra Drips:insulin gtt Pressors- no Hospital course: A/P DKA -Unclear precipitant, No suspicious for new infection_ *Insulin drip, continue to monitor for resolution of acidosis, AG and electrolytes. Continue hydration.- IMPROVING , AG closed bicarb 15 *Tx Gastroparesis UA unremarkable Lines : , (Central Line Necessity Reviewed) [place]: OG: Nutrition: Analgesia: Anxiety/ delirium Plans in collaboration with bedside consultants and IM MDs. Discussed with RN to reach out if any questions or concerns Case and care daily discussed on multidisciplinary rounds ( RN, PharmD, Cnc Programmer , Respiratory Therapy, structural ironworker ) A total of 5 minutes of critical care time was devoted to this patient today, required to treat and/or prevent further deterioration of critical care condition ( as above ) . I am remotely monitoring this patient from another state. I am unable to do the bedside exam, and history/physical and pertinent information is taken from other notes in the computer and bedside staff. Sepsis Event Evaluation Height, Weight, BMI Height: 5'9.00" Weight: 255lbs. 0oz. 115.899308gy; 27.82 BMI Method:Stated Focused Exam Lactate Level 04/01/23 11:53: Lactic Acid Level 6.01*H 04/01/23 17:08: Lactic Acid Level 3.63*H 04/01/23 19:18: Lactic Acid Level 2.59*H Exam Exam Patient acknowledged, consented, and participated in this virtual visit which was conducted using real time audio/video Vital Signs Date Time Temp Pulse Resp B/P (MAP) Pulse Ox O2 Delivery O2 Flow Rate FiO2 04/02/23 09:00 93 15 111/64 (80) 100 Room Air 04/02/23 08:00 93 16 118/114 (115) 100 Room Air 04/02/23 07:00 100 04/02/23 07:00 96 20 120/86 (97) 100 Room Air 04/02/23 06:00 91 14 96/54 (68) 99 Room Air 04/02/23 05:00 108 16 130/85 (100) 100 Room Air 04/02/23 04:46 36.2 04/02/23 04:00 Room Air 04/02/23 04:00 97 32 111/63 (79) 100 Room Air 04/02/23 03:00 101 24 109/69 (81) 100 Room Air 04/02/23 02:00 91 17 104/61 (74) 100 Room Air 04/02/23 01:00 93 04/02/23 01:00 93 16 115/60 (77) 100 Room Air 04/02/23 00:38 36.8 04/02/23 00:00 106 21 107/56 (73) 100 Room Air 04/01/23 23:59 Room Air 04/01/23 23:00 105 24 128/74 (92) 100 Room Air 04/01/23 22:00 108 21 115/59 (77) 99 Room Air 04/01/23 21:51 Room Air 04/01/23 21:00 105 19 94/60 (63) 100 Room Air 04/01/23 20:00 108 14 128/84 (98) 100 Room Air 04/01/23 20:00 Room Air 04/01/23 19:59 36.6 04/01/23 19:00 124 127/85 (94) 100 Room Air 04/01/23 19:00 124 04/01/23 18:00 120 19 100 Room Air 04/01/23 17:00 93 21 119/79 (92) 100 Room Air 04/01/23 16:00 120 19 100 Room Air 04/01/23 16:00 36.7 04/01/23 16:00 Room Air 04/01/23 15:54 122 04/01/23 15:30 116 25 100 Room Air 04/01/23 15:21 35.8 139 04/01/23 15:00 100 Room Air 04/01/23 11:47 35.8 139 24 118/79 (92) Room Air I & O 04/02/23 07:00 Intake Total 3940 ml Balance 3940 ml Height & Weight Height: 5'9.00" Weight: 255lbs. 0oz. 115.025300li; 27.82 BMI Method:Stated General Appearance: No Apparent Distress, WD/WN, Other HEENT: PERRL/EOMI, TMs Normal, Normal ENT Inspection, Pharynx Normal Neck: Full Range of Motion, Normal Inspection, Non Tender, Supple Respiratory: Chest Non Tender, Lungs Clear, Normal Breath Sounds Cardiovascular: No Edema, No Gallop, No JVD, No Murmur, Tachycardia Extremity: Normal Capillary Refill, Normal Inspection, Normal Range of Motion, Non Tender Neurologic/Psychiatric: Alert, Oriented x3, No Motor/Sensory Deficits, Normal Mood/Affect, opthalmic tech II-XII Norm as Tested Skin: Normal Color, Warm/Dry Results Lab Laboratory Tests 04/01/23 11:53 04/01/23 17:08 04/01/23 19:18 04/01/23 23:15 04/02/23 04:16 Assessment/Plan Assessment/Plan 1 FRANTZ ENCISO MD Apr 02, 2023 10:24
--- NOTE | 2023-04-02 11:33 | History & Physical-Hospitalist ---
VENANCIO BARTON 04/02/23 1133: History of Present Illness HPI/Chief Complaint Our patient is a 22 yo F with a past medical history of type I diabetes and mu ltiple previous hospitalizations for diabetic ketoacidosis that presented to the emergency room with increased blood sugar. Her symptoms began sometime around 0600 yesterday with nausea, vomiting, fa tigue, weakness, malaise, SOB, and frequent urination. She took her blood sugar and the glucometer simply read as "high" and she administered insulin. Her subsequent blood sugar read as 193 and she decided to head to the ER. She notes a history of similar occurrences in the past, her first of which occurred at age 12 when she was originally diagnosed with diabetes. On interview this morning, she states that she is feeling much better. She notes malaise and fatigue but her nausea vomting, SOB, and urinary frequency have resolved. She denies chest pain, headache, abdominal pain, changes in vision, or lightheadedness. Upon arrival to the ED she was found to be tachycardic and was given 1 liter of fluid. Blood sugar on arrival was 201. She vomited 3-4 times and was given zofran. Initial labwork was suggestive of DKA and the patient was admitted for further treatment and evaluation. Source: patient, RN/MD Exam Limitations: no limitations Date Seen 04/02/23 Time Seen by a Provider: 08:15 Attending Physician Carlos Lyn DO PCP Admitting Physician: Patito Diamond DO Attending Physician: Patito Diamond DO Referring Physician Date of Admission Apr 01, 2023 at 14:18 Home Medications & Allergies Home Medications Reviewed patient Home Medication Reconciliation performed by pharmacy medication reconciliations vocational rehabilitation technician and/or nursing. Patients Allergies have been reviewed. Allergies Allergies Coded Allergies bismuth subsalicylate (Verified Allergy, Unknown, 08/29/22) latex (Unverified Allergy, Unknown, 01/09/23) Past Ruwpixr-Mpiiho-Yyuoxl Hx Patient Social History Tobacco Use?: No Use of E-Cig and/or Vaping dev: Yes E-Cig or Vaping type used: Nicotine Use of E-Cig and/or Vaping Tom: Current Everyday User Substance use?: No Alcohol Use?: Yes Alcohol Frequency: Once in a while Pt feels they are or have been: No Immunizations Up To Date Date of Influenza Vaccine: Jul 25, 2022 First/Initial COVID19 Vaccinat: APR 2021 Second COVID19 Vaccination [place]: MAY 2021 Tetanus Booster (TDap): Less Than 5 Years Hepatitis A: Yes Hepatitis B: Yes PED Vaccines UTD: Yes Seasonal Allergies Seasonal Allergies: No Current Status status: No Advance Directives: No Communicates: Verbally Primary Language: Samoan Preferred Spoken Language: Samoan Is interpretation needed?: No Implanted or Applied Medical D: None Past Medical History Currently Using CPAP: No Currently Using BIPAP: No Palpitations Sexually Transmitted Disease: No HIV/AIDS: No Bladder Infection Diabetes, Insulin dep Loss of Vision: Denies Hearing Impairment: Denies Anxiety, Depression Blood Disorders: No Adverse Reaction/Blood Tranf: No PMHx: Type I DM Depression SurgHx: Denies Family Medical History Other Conditions/Hx (Thyroid disease in mother, aunt, and gradmother. Father's family history unknown.) Review of Systems Constitutional: No chills, No fever; malaise EENTM: No blurred vision, No double vision, No vision loss Respiratory: No cough, No short of breath Cardiovascular: No chest pain, No Hx of Intervention Gastrointestinal: No abdominal pain, No constipation, No diarrhea, No nausea, No vomiting Genitourinary: No dysuria, No frequency Musculoskeletal: back pain, muscle pain Psychiatric/Neurological: Anxiety, Depressed; Denies Headache, Denies Numbness, Denies Tingling Physical Exam Physical Exam Vital Signs Vital Signs - First Documented 04/01/23 04/01/23 11:47 15:00 Temp 35.8 Pulse 139 Resp 24 B/P (MAP) 118/79 (92) Pulse Ox 100 O2 Delivery Room Air Capillary Refill : Height, Weight, BMI Height: 5'9.00" Weight: 255lbs. 0oz. 115.772275dr; 27.82 BMI Method:Stated General Appearance: No Apparent Distress, WD/WN, Obese HEENT: PERRL/EOMI, Normal ENT Inspection Neck: Normal Inspection, Non Tender, Supple Respiratory: Chest Non Tender, Lungs Clear, Normal Breath Sounds, No Accessory Muscle Use, No Respiratory Distress Cardiovascular: No Edema, No Gallop, No JVD, No Murmur, Normal Peripheral Pulses, Tachycardia Gastrointestinal: Normal Bowel Sounds, Non Tender, Soft Rectal: Deferred Back: Normal Inspection Extremity: Non Tender, No Calf Tenderness, No Pedal Edema Neurologic/Psychiatric: Alert, Oriented x3, No Motor/Sensory Deficits, Normal Mood/Affect Skin: Normal Color, Warm/Dry Results Results/Procedures Labs Laboratory Tests 04/01/23 11:53 04/01/23 17:08 04/01/23 19:18 04/01/23 23:15 04/02/23 04:16 Patient resulted labs reviewed. Imaging: Reviewed Imaging Films, Reviewed Imaging Report Imaging Negative chest x-ray Meds As noted in medications list Assessment/Plan Admission Diagnosis Diabetic Ketoacidosis Admission Status: Inpatient Order (span 2 midnights) Reason for Inpatient Admission: Inpatient admission is necessary to ensure patient safety due to the dangers and risks associated with DKA. Assessment and Plan Diabetic Ketoacidosis -Glucometer read 201 at admission and jesús to the 4-5 hundreds during the night -Initial lactic acid was 6.01, this continues to decline -Initial beta-hydroxybutyrate was 4.0, decreased to 0.38 this morning -Continue insulin drip 5 mls/hr IV -Continue dextrose/NaCl 250 mls/hr -Continue KCl 25 mls/hr IV -Patient condition continues to improve -Continue ondansetron 4 mg as needed for nausea and vomiting -Monitor with serial glucometer readings and daily chemistries Depression and anxiety -Continue bupropion Possible UTI -Initial urinalysis showed moderate bacteria but was leukocyte esterase and nitrite negative -Culture results are pending -Monitor for urinary symptoms Bowel regimen of senna, docusate sodium, lactulose, bisacodyl, miralax available as needed for constipation DVT Prophylaxis: enoxaparin 40 mg (patient refused) Diet: diabetic Disposition: admit for inpatient care PATITO DIAMOND DO 04/02/232128: Past Qpxpgkc-Gnerjx-Dnguxz Hx Patient Social History Marrital Status: cohabiting Smoking Status: Never a Smoker Review of Systems Constitutional: see HPI Physical Exam Physical Exam General Appearance: No Apparent Distress, Chronically ill Assessment/Plan Admission Diagnosis Admission Status: Inpatient Order (span 2 midnights) Reason for Inpatient Admission: dka Assessment and Plan dka Supervisory-Addendum Brief Verification & Attestation Participated in pt care: history, MDM, physical Personally performed: exam, history, MDM, supervision of care Care discussed with: Medical Student Procedures: n/a Results interpretation: Verified all documentation Verification and Attestation of Medical Student E/M Service A medical student performed and documented this service in my presence. I reviewed and verified all information documented by the medical student and made modifications to such information, when appropriate. I personally performed the physical exam and medical decision making. Patito Diamond, Apr 02, 2023,21:29 VENANCIO BARTON Apr 02, 2023 11:33 PATITO DIAMOND DO Apr 02, 2023 21:29
[2023-04-02 13:29] LABS: CALCIUM 7.8 MG/DL (8.5-10.1); CREATININE SERUM 0.79 MG/DL (0.60-1.30); POTASSIUM 4.3 MMOL/L (3.6-5.0)
[2023-04-02] MEDS: ENOXAPARIN 40 MG/0.4 ML (LOVENOX) SYR SC SCH (15:44)
[2023-04-02 20:05] LABS: BILIRUBIN,TOTAL 0.1 MG/DL (0.1-1.0); CALCIUM 7.8 MG/DL (8.5-10.1); CREATININE SERUM 0.72 MG/DL (0.60-1.30); POTASSIUM 4.3 MMOL/L (3.6-5.0); TOTAL PROTEIN 5.7 GM/DL (6.4-8.2)
[2023-04-03] MEDS: POTASSIUM CL 10MEQ/50ML IVPB 50 ML IV SCH ×6 (00:24→08:41)
[2023-04-03] MEDS: D5 1/2 NS 1,000 ML IV 1,000 ML IV SCH ×3 (01:37→09:53)
[2023-04-03] MEDS: IBUPROFEN 600 MG (MOTRIN) TAB PO SCH ×4 (03:16→21:02)
[2023-04-03] MEDS: 1/2 NS IV SOLUTION 1000 ML 1,000 ML IV SCH ×2 (03:16→05:45)
[2023-04-03 03:49] LABS: BASOPHILS % (AUTO) 1 % (0-10); EOSINOPHILS # (AUTO) 0.1 10^3/uL (0.0-0.3); EOSINOPHILS % (AUTO) 2 % (0-10); HEMATOCRIT 26 % (35-52); HEMOGLOBIN 7.8 g/dL (11.5-16.0); LYMPHOCYTES # (AUTO) 3.2 10^3/uL (1.0-4.0); LYMPHOCYTES % (AUTO) 53 % (12-44); MEAN CORPUSCULAR HEMOGLOBIN 22 pg (25-34); MEAN CORPUSCULAR HGB CONC 30 g/dL (32-36); MEAN CORPUSCULAR VOLUME 74 fL (80-99); MEAN PLATELET VOLUME 9.8 fL (9.0-12.2); MONOCYTES # (AUTO) 0.3 10^3/uL (0.0-1.0); MONOCYTES % (AUTO) 6 % (0-12); NEUTROPHILS # (AUTO) 2.3 10^3/uL (1.8-7.8); NEUTROPHILS % (AUTO) 39 % (42-75); PLATELET COUNT 371 10^3/uL (130-400)
[2023-04-03 03:58] LABS: ALBUMIN 2.6 GM/DL (3.2-4.5)
[2023-04-03 03:59] LABS: CALCIUM 7.6 MG/DL (8.5-10.1)
[2023-04-03 04:02] LABS: BILIRUBIN,TOTAL 0.1 MG/DL (0.1-1.0)
[2023-04-03 04:04] LABS: CREATININE SERUM 0.59 MG/DL (0.60-1.30); PHOSPHORUS 2.9 MG/DL (2.3-4.7)
[2023-04-03 04:07] LABS: MAGNESIUM 1.9 MG/DL (1.6-2.4)
[2023-04-03] MEDS: KCL 20 MEQ TAB (K-DUR) PO SCH (04:24)
[2023-04-03] MEDS: MAGNESIUM 1 GM/100 ML IVPB 100 ML IV SCH (04:24)
[2023-04-03] MEDS: DOCUSATE SODIUM 100 MG (COLACE) CAP PO SCH ×2 (08:26→20:59)
[2023-04-03] MEDS: SENNOSIDES 8.6 MG (SENOKOT) TAB PO SCH ×2 (08:27→20:59)
[2023-04-03] MEDS ORDERED: ACETAMINOPHEN 500 MG TABLET PO PRN (09:15)
[2023-04-03] MEDS ORDERED: inSUlin ASPART (NovoLOG) 1 UNIT/0.01 ML (CHARGE PER UNIT) SC SCH (09:15)
[2023-04-03] MEDS ORDERED: IBUPROFEN TABLET 200 MG TAB PO PRN (09:15)
[2023-04-03] MEDS ORDERED: D5 1/2 NS 1,000 ML IV 1,000 ML IV ONE (09:51)
--- NOTE | 2023-04-03 10:24 | Progress Note - Hospitalist ---
VENANCIO BARTON 04/03/23 1024: Subjective HPI/CC On Admission Date Seen by Provider: Apr 03, 2023 Time Seen by Provider: 08:00 Our patient is a 22 yo F with a past medical history of type I diabetes and multiple previous hospitalizations for diabetic ketoacidosis that presented to the emergency room with increased blood sugar. Her symptoms began sometime around 0600 yesterday with nausea, vomiting, fatigue, weakness, malaise, SOB, and frequent urination. She took her blood sugar and the glucometer simply read as "high" and she administered insulin. Her subsequent blood sugar read as 193 and she decided to head to the ER. She notes a history of similar occurrences in the past, her first of which occurred at age 12 when she was originally diagnosed with diabetes. On interview this morning, she states that she is feeling much better. She notes malaise and fatigue but her nausea vomting, SOB, and urinary frequency have resolved. She denies chest pain, headache, abdominal pain, changes in vision, or lightheadedness. Upon arrival to the ED she was found to be tachycardic and was given 1 liter of fluid. Blood sugar on arrival was 201. She vomited 3-4 times and was given zofran. Initial labwork was suggestive of DKA and the patient was admitted for further treatment and evaluation. Subjective/Events-last exam Our patient is a 22 yo F who was admitted to the hospital for diabetic ketoa cidosis. She states that she is feeling better this morning but still notes body aches and fatigue. She denies abdominal pain, chest pain, headache, lightheadedness, nausea, vomiting, diarrhea, constipation, or urinary symptoms. She is tolerating food well and has noted no issues with walking too and from the toilet. Possible port placement was discussed with the patient and she is agreeable to this plan should it be instituted. Review of Systems General: No Chills; Fatigue, Malaise HEENT: No Head Aches, No Visual Changes Pulmonary: No Dyspnea Cardiovascular: No: Chest Pain, Palpitations, Edema, Lt Headedness Gastrointestinal: No: Nausea, Vomiting, Abdominal Pain, Diarrhea, Constipation Genitourinary: No Dysuria, No Frequency Musculoskeletal: back pain Neurological: No: Numbness, Confusion Focused Exam Sepsis Stage: Ruled Out Reason for ruling out sepsis: Patient does not meet SIRS criteria Lactate Level 04/01/23 11:53: Lactic Acid Level 6.01*H 04/01/23 17:08: Lactic Acid Level 3.63*H 04/01/23 19:18: Lactic Acid Level 2.59*H Objective Exam Vital Signs Vital Signs Date Time Temp Pulse Resp B/P (MAP) Pulse Ox O2 Delivery O2 Flow Rate FiO2 04/03/23 10:00 87 17 138/94 (109) 100 Room Air 04/03/23 09:00 36.0 Capillary Refill : Less Than 3 Seconds General Appearance: No Apparent Distress, WD/WN HEENT: PERRL/EOMI, Normal ENT Inspection; No Photophobia, No Scleral Icterus (L), No Scleral Icterus (R) Neck: Normal Inspection, Non Tender, Supple; No Carotid Bruit, No Lymphadenopathy (L), No Lymphadenopathy (R) Respiratory: Chest Non Tender, Lungs Clear, Normal Breath Sounds, No Accessory Muscle Use, No Respiratory Distress Cardiovascular: Regular Rate, Rhythm, No Edema, No Gallop, No JVD, No Murmur, Normal Peripheral Pulses Gastrointestinal: Normal Bowel Sounds, No Organomegaly, Non Tender, Soft Rectal: Deferred Back: Normal Inspection, No CVA Tenderness Extremity: Normal Inspection, Normal Range of Motion, Non Tender, No Calf Tenderness, No Pedal Edema Neurologic/Psychiatric: Alert, Oriented x3, No Motor/Sensory Deficits, Normal Mood/Affect Skin: Normal Color, Warm/Dry Results/Procedures Lab Laboratory Tests 04/02/23 13:04 04/02/23 19:38 04/03/23 03:20 Patient resulted labs reviewed. Imaging: Reviewed Imaging Films, Reviewed Imaging Report Radiology No additional imaging studies conducted. Meds As indicated in medications list. Assessment/Plan Assessment and Plan Assess & Plan/Chief Complaint Diabetic Ketoacidosis -Glucose is now much better controlled than at time of admission. Glucometer readings consistently in the mid-100's. -Initial beta-hydroxybutyrate was 4.0, decreased to 0.11 -Continue insulin drip 5 mls/hr IV -Continue dextrose/NaCl 250 mls/hr -Continue KCl 25 mls/hr IV -Patient condition continues to improve -Continue ondansetron 4 mg as needed for nausea and vomiting -Monitor with serial glucometer readings and daily chemistries Depression and anxiety -Continue bupropion Possible UTI -Initial urinalysis showed moderate bacteria but was leukocyte esterase and nitrite negative -Culture results were positive for Group B Strep and other typical vaginal max -Treatment is not necessary at this time -Monitor for urinary symptoms Bowel regimen of senna, docusate sodium, lactulose, bisacodyl, miralax available as needed for constipation DVT Prophylaxis: enoxaparin 40 mg (patient refused) Diet: diabetic Disposition: transfer to general admission PATITO SMYTH DO 04/04/23 0530: Supervisory-Addendum Brief Verification & Attestation Participated in pt care: history, MDM, physical Personally performed: exam, history, MDM, supervision of care Care discussed with: Medical Student Procedures: n/a Results interpretation: Verified all documentation Verification and Attestation of Medical Student E/M Service A medical student performed and documented this service in my presence. I reviewed and verified all information documented by the medical student and made modifications to such information, when appropriate. I personally performed the physical exam and medical decision making. Patito Smyth, Apr 04, 2023,05:30 VENANCIO BARTON Apr 03, 2023 10:24 PATITO SMYTH DO Apr 04, 2023 05:30
[2023-04-03] MEDS: inSUlin ASPART (NovoLOG) 1 UNIT/0.01 ML (CHARGE PER UNIT) SC SCH ×3 (11:13→21:00)
[2023-04-03 11:14] VITALS: BP 143/98
[2023-04-03] MEDS: diphenhydrAMINE 25 MG TAB (BENADRYL) PO PRN (13:01)
[2023-04-03] MEDS: ENOXAPARIN 40 MG/0.4 ML (LOVENOX) SYR SC SCH (15:26)
[2023-04-03 15:45] VITALS: BP 152/99
--- NOTE | 2023-04-03 17:12 | Consultation - Surgery ---
History of Present Illness History of Present Illness Patient Consulted On(anders/time) 04/03/23 17:08 Date Seen by Provider: Apr 03, 2023 Time Seen by Provider: 15:49 History of Present Illness Consult requested by Dr. Diamond for port placement. 22 year old female with DKA and multiple admissions. Has ppoor venous access. Needed multiple central lines in past. Admitted for DKA again. Doing better and transferred out of the ICU. Denies n/v fever sweats chills shortness of breath or chest pain. Allergies and Home Medications Allergies Coded Allergies: bismuth subsalicylate (Verified Allergy, Unknown, 08/29/22) latex (Unverified Allergy, Unknown, 01/09/23) Patient Home Medication List Home Medication List Reviewed: Yes Acetaminophen (Tylenol Extra Strength) 500 Mg Tablet, 1,000 MG PO Q8H PRN for PAIN-MILD (1-4), (Reported) Entered as Reported by: COLT BOURNE on 02/28/23 1150 Last Action: Continued Bupropion HCl (Bupropion HCl) 75 Mg Tablet, 75 MG PO BID, (Reported) Entered as Reported by: COLT BOURNE on 02/28/23 1150 Last Action: Continued Ibuprofen (Ibuprofen) 200 Mg Tablet, 400 MG PO Q8H PRN for PAIN-MILD (1-4), (Reported) Entered as Reported by: COLT BOURNE on 01/10/23 1134 Last Action: Continued Insulin Lispro (Insulin Lispro) 100 Unit/Ml Vial, UNIT SQ AC, (Reported) Entered as Reported by: COLT BOURNE on 04/02/23 0943 Last Action: Held Discontinued Medications Ferrous Sulfate (Ferrous Sulfate) 325 Mg (65 Mg Iron) Tablet, 325 MG PO DAILY Discontinued Reason: No Longer Taking Prescribed by: PILI SWANSON on 03/01/23 0740 Last Action: Discontinued Insulin Lispro (Humalog) 100 Unit/Ml Vial, 0 SC UD Discontinued Reason: Duplicate Order Prescribed by: PILI SWANSON on 03/01/23 1024 Last Action: Discontinued Naproxen (EC-Naproxen) 500 Mg Tablet.dr, 500 MG PO BID PRN for PAIN-MILD (1-4), (Reported) Discontinued Reason: No Longer Taking Entered as Reported by: COLT BOURNE on 02/28/23 1150 Last Action: Discontinued Oxymetazoline HCl (Nasal [place]) Unknown Strength Mist, Unknown Dose NS PRN, (Reported) Discontinued Reason: No Longer Taking Entered as Reported by: MAGO BONILLA on 04/01/23 1735 Last Action: Discontinued Past Mqknkms-Hgjupi-Pruugf Hx Patient Social History Smoking Status: Never a Smoker Type Used: Electronic/Vapor 2nd Hand Smoke Exposure: No Recent Hopitalizations: Yes (DKA) Alcohol Use?: Yes Immunizations Up To Date Tetanus Booster (TDap): Less than 5yrs PED Vaccines UTD: Yes Date of Influenza Vaccine: Jul 25, 2022 Seasonal Allergies Seasonal Allergies: No Surgeries History of Surgeries: No Respiratory History of Respiratory Disorde: No Cardiovascular History of Cardiac Disorders: Yes (TACHYCARDIA) Cardiac Disorders: Palpitations Neurological History of Neurological Disord: No Reproductive System Hx Reproductive Disorders: No Sexually Transmitted Disease: No HIV/AIDS: No Female Reproductive Disorders: Denies Genitourinary History of Genitourinary Disor: Yes Genitourinary Disorders: Bladder Infection Gastrointestinal History of Gastrointestinal Di: Yes (CANNABIS HYPEREMESIS; CHRONIC N/V AND ABDOMINAL PAIN ) Musculoskeletal History of Musculoskeletal Dis: No Endocrine History of Endocrine Disorders: Yes (TYPE 1 DIABETES WITH MULTIPLE EPISODES OF DKA. DX AGE 12) Endocrine Disorders: Diabetes, Insulin dep HEENT History of HEENT Disorders: No Loss of Vision: Denies Hearing Impairment: Denies Cancer History of Cancer: No Psychosocial History of Psychiatric Problem: Yes Behavioral Health Disorders: Anxiety, Depression Integumentary History of Skin or Integumenta: No Blood Transfusions History of Blood Disorders: No Adverse Reaction to a Blood Tr: No Reviewed Nursing Assessment Reviewed/Agree w Nursing PMH: Yes Family Medical History Significant Family History: No Pertinent Family Hx, Other Conditions/Hx (Thyroid disease in mother, aunt, and gradmother. Father's family history unknown.) Review of Systems-General Constitutional: No chills, No diaphoresis EENTM: No blurred vision, No double vision Respiratory: No cough, No dyspnea on exertion Cardiovascular: No chest pain, No palpitations Gastrointestinal: No abdominal pain, No nausea, No vomiting Genitourinary: No decreased output, No discharge Musculoskeletal: No back pain Skin: No change in color, No change in hair/nails Psychiatric/Neurological: Denies Anxiety, Denies Depressed, Denies Emotional Problems All Other Systems Reviewed Negative Unless Noted: Yes (Negative excepted noted.) Physical Exam-General Problems Physical Exam Vital Signs Vital Signs - First Documented 04/01/23 04/01/23 11:47 15:00 Temp 35.8 Pulse 139 Resp 24 B/P (MAP) 118/79 (92) Pulse Ox 100 O2 Delivery Room Air Capillary Refill : Less Than 3 Seconds General Appearance: WD/WN, no apparent distress HEENT: PERRL/EOMI, normal ENT inspection Neck: non-tender, supple Respiratory: chest non-tender, no respiratory distress, no accessory muscle use Cardiovascular: regular rate, rhythm, no JVD Gastrointestinal: non tender, soft Rectal: deferred Back: no CVA tenderness, no vertebral tenderness Extremities: non-tender, normal inspection Neurologic/Psychiatric: alert, normal mood/affect, oriented x 3 Skin: normal color, warm/dry Lymphatic: no adenopathy Data Review Labs Laboratory Tests 04/02/23 17:42: Glucometer 173H 04/02/23 18:34: Glucometer 160H 04/02/23 19:37: Glucometer 140H 04/02/23 19:38: Sodium Level 137, Potassium Level 4.3, Chloride Level 110H, Carbon Dioxide Level 16L, Anion Gap 11, Blood Urea Nitrogen 4L, Creatinine 0.72, Estimat Glomerular Filtration Rate 123, BUN/Creatinine Ratio 6, Glucose Level 135H, Calcium Level 7.8L, Corrected Calcium 8.6, Total Bilirubin 0.1, Aspartate Amino Transf (AST/S GOT) 38H, Alanine Aminotransferase (ALT/SGPT) 20, Alkaline Phosphatase 185H, Total Protein 5.7L, Albumin 3.0L 04/02/23 21:37: Glucometer 150H 04/02/23 22:34: Glucometer 163H 04/02/23 23:34: Glucometer 138H 04/03/23 00:25: Glucometer 144H 04/03/23 01:34: Glucometer 130H 04/03/23 02:30: Glucometer 111H 04/03/23 03:20: White Blood Count 6.0, Red Blood Count 3.53L, Hemoglobin 7.8L, Hematocrit 26L, Mean Corpuscular Volume 74L, Mean Corpuscular Hemoglobin 22L, Mean Corpuscular Hemoglobin Concent 30L, Red Cell Distribution Width 17.6H, Platelet Count 371, Mean Platelet Volume 9.8, Immature Granulocyte % (Auto) 0, Neutrophils (%) (Auto) 39L, Lymphocytes (%) (Auto) 53H, Monocytes (%) (Auto) 6, Eosinophils (%) (Auto) 2, Basophils (%) (Auto) 1, Neutrophils # (Auto) 2.3, Lymphocytes # (Auto) 3.2, Monocytes # (Auto) 0.3, Eosinophils # (Auto) 0.1, Basophils # (Auto) 0.0, Immature Granulocyte # (Auto) 0.0, Sodium Level 139, Potassium Level 4.0, Chloride Level 113H, Carbon Dioxide Level 17L, Anion Gap 9, Blood Urea Nitrogen 3L, Creatinine 0.59L, Estimat Glomerular Filtration Rate 132, BUN/Creatinine Ratio 5, Glucose Level 92, Calcium Level 7.6L, Corrected Calcium 8.7, Phosphorus Level 2.9, Magnesium Level 1.9, Iron Level 15L, Total Iron Binding Capacity 319, Unsaturated Iron Binding Capacity 304, Transferrin % Saturation 5L, Ferritin 15.5L, Total Bilirubin 0.1, Aspartate Amino Transf (AST/SGOT) 37H, Alanine Aminotransferase (ALT/SGPT) 18, Alkaline Phosphatase 178H, Total Protein 5.0L, Albumin 2.6L, Vitamin B12 Level 255, Beta-Hydroxybutyrate (Chem panel) 0.11 04/03/23 04:40: Glucometer 87 04/03/23 05:34: Glucometer 108 04/03/23 06:37: Glucometer 144H 04/03/23 08:03: Glucometer 142H 04/03/23 09:00: Glucometer 165H 04/03/23 11:05: Glucometer 180H 04/03/23 15:49: Glucometer 158H Microbiology 04/01/23 MRSA Screen - Final, Complete MRSA not isolated 04/01/23 Urine Culture - Final, Complete Strep agalactiae Group B Mixed Bacterial Lidya See Comments Assessment/Plan Assessment/Plan Assessment/Plan DKA Poor venous access. We discussed risks and benefits of u/s guided port placement she understands and wishes to proceed she understands port needs to be flushed every 90 days NPO after midnight consent will place in am. CAILIN TORRES DO Apr 03, 2023 17:12
[2023-04-03 20:21] VITALS: BP 144/87
[2023-04-03] MEDS: buPROPion 75 MG TABLET PO SCH (21:02)
[2023-04-03 23:51] VITALS: BP 134/78
[2023-04-04] VITALS (7 sets, daily range): BP systolic 128–147; BP diastolic 70–93
[2023-04-04] MEDS: diphenhydrAMINE 25 MG TAB (BENADRYL) PO PRN (00:12)
[2023-04-04] MEDS: IBUPROFEN 600 MG (MOTRIN) TAB PO SCH ×2 (03:11→09:17)
[2023-04-04] MEDS: inSUlin ASPART (NovoLOG) 1 UNIT/0.01 ML (CHARGE PER UNIT) SC SCH ×2 (05:48→11:39)
[2023-04-04 06:30] LABS: BASOPHILS % (AUTO) 1 % (0-10); EOSINOPHILS # (AUTO) 0.1 10^3/uL (0.0-0.3); EOSINOPHILS % (AUTO) 2 % (0-10); HEMATOCRIT 32 % (35-52); LYMPHOCYTES # (AUTO) 2.9 10^3/uL (1.0-4.0); LYMPHOCYTES % (AUTO) 47 % (12-44); MEAN CORPUSCULAR HEMOGLOBIN 23 pg (25-34); MEAN CORPUSCULAR HGB CONC 31 g/dL (32-36); MEAN CORPUSCULAR VOLUME 73 fL (80-99); MEAN PLATELET VOLUME 10.5 fL (9.0-12.2); MONOCYTES # (AUTO) 0.4 10^3/uL (0.0-1.0); MONOCYTES % (AUTO) 6 % (0-12); NEUTROPHILS # (AUTO) 2.8 10^3/uL (1.8-7.8); NEUTROPHILS % (AUTO) 45 % (42-75); PLATELET COUNT 434 10^3/uL (130-400); WHITE BLOOD COUNT 6.3 10^3/uL (4.3-11.0)
[2023-04-04 06:33] LABS: ALBUMIN 3.3 GM/DL (3.2-4.5); POTASSIUM 4.7 MMOL/L (3.6-5.0)
[2023-04-04 06:34] LABS: CALCIUM 9.2 MG/DL (8.5-10.1)
[2023-04-04 06:36] LABS: TOTAL PROTEIN 6.4 GM/DL (6.4-8.2)
[2023-04-04 06:37] LABS: BILIRUBIN,TOTAL 0.3 MG/DL (0.1-1.0)
[2023-04-04 06:39] LABS: CREATININE SERUM 0.79 MG/DL (0.60-1.30)
[2023-04-04 06:42] LABS: MAGNESIUM 1.8 MG/DL (1.6-2.4)
[2023-04-04] MEDS ORDERED: HEParin (CENTRAL IV FLUSH) 500 UNIT/5 ML SYR ONE (07:00)
[2023-04-04] MEDS ORDERED: 0.9% SODIUM CHLORIDE PF INJ 20 ML VIAL ONE (07:00)
[2023-04-04] MEDS ORDERED: LIDOCAINE/EPI 1%-1:100,000 (XYLOCAINE) 20ML ONE (07:00)
[2023-04-04] MEDS ORDERED: LACTATED RINGERS 1,000 ML IV PRN ×2 (07:15→08:00)
[2023-04-04] MEDS ORDERED: morphine INJ 10 MG/ML 1ML (SYR OR VIAL) IVP ONE (07:15)
[2023-04-04] MEDS ORDERED: ONDANSETRON 4 MG/2 ML (SDV) Z0FRAN IVP PRN (07:15)
[2023-04-04] MEDS ORDERED: PROPOFOL INJECTION 50 ML IV ONE ×2 (07:29→08:17)
[2023-04-04] MEDS ORDERED: MIDAZOLAM 2 MG/2 ML (VERSED) VIAL ONE (07:29)
[2023-04-04] MEDS ORDERED: LIDOCAINE PF 2% 5 ML (XYLOCAINE) VIAL ONE (07:29)
[2023-04-04] MEDS ORDERED: ceFAZolin INJECTION 2,000 MG in NS (IVPB) 50 ML 50 ML IV NR (07:40)
--- NOTE | 2023-04-04 07:44 | Progress Note - Surgery ---
Subjective Date Seen by a Provider: Apr 04, 2023 Time Seen by a Provider: 07:29 Subjective/Events-last exam No changes from yesterday. Currently NPO. Waiting for port to be placed. Denies n/v fever sweats chills shortness of breath or chest pain. Focused Exam Lactate Level 04/01/23 11:53: Lactic Acid Level 6.01*H 04/01/23 17:08: Lactic Acid Level 3.63*H 04/01/23 19:18: Lactic Acid Level 2.59*H Objective Exam Vital Signs Date Time Temp Pulse Resp B/P (MAP) Pulse Ox O2 Delivery O2 Flow Rate FiO2 04/04/23 03:03 36.4 90 17 147/93 (111) 97 Room Air 04/03/23 23:51 36.4 102 17 134/78 (96) 98 Room Air 04/03/23 21:00 Room Air 04/03/23 20:21 36.4 99 17 144/87 (106) 99 Room Air 04/03/23 15:45 36.2 80 16 152/99 (116) 100 Room Air 04/03/23 12:55 Room Air 04/03/23 11:14 36.3 101 17 143/98 (113) 99 Room Air 04/03/23 10:00 87 17 138/94 (109) 100 Room Air 04/03/23 09:00 36.0 77 27 112/78 (89) 100 Room Air 04/03/23 08:00 36.0 04/03/23 08:00 77 27 112/78 (89) 100 Room Air I & O 04/04/23 07:00 Intake Total 3620 ml Balance 3620 ml Capillary Refill : Less Than 3 Seconds General Appearance: No Apparent Distress, WD/WN HEENT: PERRL/EOMI, Normal ENT Inspection; No Photophobia, No Scleral Icterus (L), No Scleral Icterus (R) Neck: Normal Inspection, Non Tender, Supple; No Carotid Bruit, No Lymphadenopathy (L), No Lymphadenopathy (R) Respiratory: Chest Non Tender, No Accessory Muscle Use, No Respiratory Distress Cardiovascular: Regular Rate, Rhythm, No JVD, Normal Peripheral Pulses Gastrointestinal: non tender, soft Extremity: Normal Inspection, Normal Range of Motion, Non Tender, No Calf Tenderness, No Pedal Edema Neurologic/Psychiatric: Alert, Oriented x3, No Motor/Sensory Deficits, Normal Mood/Affect Skin: Normal Color, Warm/Dry Results Lab Laboratory Tests 04/03/23 08:03: Glucometer 142H 04/03/23 09:00: Glucometer 165H 04/03/23 11:05: Glucometer 180H 04/03/23 15:49: Glucometer 158H 04/03/23 20:11: Glucometer 150H 04/04/23 05:30: Glucometer 283H 04/04/23 05:53: White Blood Count 6.3, Red Blood Count 4.42, Hemoglobin 10.0#L, Hematocrit 32L, Mean Corpuscular Volume 73L, Mean Corpuscular Hemoglobin 23L, Mean Corpuscular Hemoglobin Concent 31L, Red Cell Distribution Width 17.3H, Platelet Count 434H, Mean Platelet Volume 10.5, Immature Granulocyte % (Auto) 0, Neutrophils (%) (Auto) 45, Lymphocytes (%) (Auto) 47H, Monocytes (%) (Auto) 6, Eosinophils (%) (Auto) 2, Basophils (%) (Auto) 1, Neutrophils # (Auto) 2.8, Lymphocytes # (Auto) 2.9, Monocytes # (Auto) 0.4, Eosinophils # (Auto) 0.1, Basophils # (Auto) 0.0, Immature Granulocyte # (Auto) 0.0, Sodium Level 135, Potassium Level 4.7, Chloride Level 100, Carbon Dioxide Level 22, Anion Gap 13, Blood Urea Nitrogen 11, Creatinine 0.79, Estimat Glomerular Filtration Rate 110, BUN/Creatinine Ratio 14, Glucose Level 288H, Calcium Level 9.2, Corrected Calcium 9.8, Magnesium Level 1.8, Total Bilirubin 0.3, Aspartate Amino Transf (AST/SGOT) 54H, Alanine Aminotransferase (ALT/SGPT) 32, Alkaline Phosphatase 237H, Total Protein 6.4, Albumin 3.3 Microbiology 04/01/23 MRSA Screen - Final, Complete MRSA not isolated 04/01/23 Urine Culture - Final, Complete Strep agalactiae Group B Mixed Bacterial Lidya See Comments Assessment/Plan Assessment/Plan Assessment/Plan DKA Poor venous access. We discussed risks and benefits of u/s guided port placement she understands and wishes to proceed she understands port needs to be flushed every 90 days NPO at this time to OR. CAILIN TORRES DO Apr 04, 2023 07:44
[2023-04-04] MEDS ORDERED: LIDOCAINE/EPI 1%-1:100,000 (XYLOCAINE) 20ML INJ ONE (08:02)
[2023-04-04] MEDS ORDERED: 0.9% SODIUM CHLORIDE PF INJ 20 ML VIAL IV ONE (08:04)
[2023-04-04] MEDS ORDERED: HEParin (CENTRAL IV FLUSH) 500 UNIT/5 ML SYR IV ONE (08:09)
--- NOTE | 2023-04-04 08:22 | Progress Note-Post Operative ---
Post-Operative Progess Note Surgeon (s)/Solutions Developer (s) Surgeon CAILIN TORRES DO Solutions Developer: NA Pre-Operative Diagnosis poor venous access Post-Operative Diagnosis same Procedure & Operative Findings Date of Procedure 04/04/23 Procedure Performed/Findings PROCEDURE: Right internal jugular port placement using ultrasound guidance. COMPLICATIONS: None. INDICATIONS: The patient is a 22 year old female with multiple admissions and poor venous access. Patient understands the risks and benefits of port placement and wished to proceed with the procedure. Consent was signed on the chart. PROCEDURE: The patient was taken to the operating suite, was prepped and draped in the sterile fashion. A surgical pause was performed. Ultrasound was used to locate the internal jugular vein. Once located anesthetic was infiltrated above it. Using micro-access kit, the right internal vein was accessed. Dark nonpulsatile blood was withdrawn. The wire was inserted. Fluoroscopy assured proper placement. The needle was removed. The micro-access dilator was advanced over the wire and the wire was removed. The regular wire was inserted and fluoroscopy assured proper placement. The wire was then secured. Local anesthetic was used to anesthetize from the neck for tunneling down to the right chest and for pocket creation. A 15 blade scalpel was used to make an incision over the right chest. Cautery was used to dissect down to the pectoral fascia. A pocket was created with blunt dissection. The dilator sheath was then advanced over the wire under fluoroscopy and the dilator and wire were removed. The Groshong catheter was inserted through the sheath and the sheath was then removed. The Groshong wire was removed. The catheter was then tunneled to the right chest pocket. Fluoroscopy was used to cut to length and this was then attached to the port which was then placed within the pocket. The port was then accessed without difficulty. It was then flushed with saline and then heparin. The subcutaneous tissues were then reapproximated using 3-0 Vicryl. The areas were then washed and dried. Skin Affix was placed over incision. The insertion point of the neck Skin Affix was placed over the incision. The patient tolerated the procedure well without complication and was taken to recovery room in stable condition. Chest x-ray is pending. Anesthesia Type mac c local Estimated Blood Loss Estimated blood loss (mL): minimal Specimens/Packing Specimens Removed CAILIN Marie DO Apr 04, 2023 08:22
--- NOTE | 2023-04-04 08:54 | Diagnostic Imaging Report ---
INDICATION: Port-A-Cath placement. TECHNIQUE: A single intraoperative fluoroscopy view was obtained with the portable intensifier in Surgery. 11.4 seconds of fluoroscopy time was used. FINDINGS: A Port-A-Cath is visualized over the right chest with the catheter entering the right internal jugular vein and the catheter tip overlying the mid SVC. The study is otherwise limited. IMPRESSION: Intraoperative fluoroscopy view demonstrates Port-A-Cath placement as above. Dictated by: Dictated on workstation # [id number]
--- NOTE | 2023-04-04 08:56 | Anesthesia-General Post-Op ---
MAC Patient Condition Mental Status/LOC: Same as Preop Cardiovascular: Satisfactory Nausea/Vomiting: Absent Respiratory: Satisfactory Pain: Controlled Complications: Absent Post Op Complications Complications None Follow Up Care/Instructions Patient Instructions None needed. Anesthesiology Discharge Order Discharge Order Patient is awake in PACU and doing well, no complaints, stable vital signs, no apparent adverse anesthesia problems. No complications reported per nursing. SANDHYA GIL DO Apr 04, 2023 08:56
--- NOTE | 2023-04-04 08:57 | Diagnostic Imaging Report ---
INDICATION: Port placement. FINDINGS: Tunnel catheter via right IJ has its tip at the SVC with no pneumothorax. The lungs clear. No failure pattern. IMPRESSION: Central line placed in the SVC without apparent complication or acute appearing abnormality. Dictated by: Dictated on workstation # [id number]
[2023-04-04] MEDS: buPROPion 75 MG TABLET PO SCH (09:17)
[2023-04-04] MEDS: DOCUSATE SODIUM 100 MG (COLACE) CAP PO SCH (09:17)
[2023-04-04] MEDS: SENNOSIDES 8.6 MG (SENOKOT) TAB PO SCH (09:18)
[2023-04-04] MEDS ORDERED: CYANOCOBALAMIN INJ 1000 MCG/ML IM ONE (11:00)
[2023-04-04] MEDS ORDERED: IRON SUCROSE 200 MG/10 ML (VENOFER) VIAL IV ONE (11:00)
[2023-04-04] MEDS ORDERED: [UNRECOGNIZED DRUG - CODE] MC (11:47)
--- NOTE | 2023-04-04 11:47 | Discharge Summary ---
Discharge Summary Hospital Course Was the Problem List Reviewed?: Yes Problems/Dx: (1) DKA (diabetic ketoacidosis) Status: Resolved Hospital Course Date of Admission: Apr 01, 2023 at 14:18 Admission Diagnosis : Family Physician/Provider: Carlos Lyn DO Date of Discharge: 04/04/23 Discharge Diagnosis: [ ] Hospital Course: Our patient is a 22 yo F with a past medical history of type I diabetes and multiple previous hospitalizations for diabetic ketoacidosis that presented to the emergency room with increased blood sugar. Her symptoms began sometime around 0600 on 04/01 with nausea, vomiting, fatigue, weakness, malaise, SOB, and frequent urination. She took her blood sugar and the glucometer simply read as "high" and she administered insulin. Her subsequent blood sugar read as 193 and she decided to head to the ER. She notes a history of similar occurrences in the past, her first of which occurred at age 12 when she was originally diagnosed with diabetes. After admission she was placed on an insulin drip and and dextrose sodium, improving substantially in the following days. In addition, labwork was notable for microcytic anemia. Subsequent iron and B12 studies were conducted resulting in low iron, transferrin saturation, ferritin, and low-normal B12. She was administered 1 dose of vennofer as well as cyanocobalamin with instructions to supplement her iron and B12 intake after discharge. Due to frequent, diabetic ketoacidosis-related hospitalizations it wa s decided that a port should be placed and the patient was agreeable to this plan. She was instructed on care of her port as well as the monthly process of having her port flushed. VENANCIO BARTON Labs and Pending Lab Test: Laboratory Tests 04/03/23 15:49: Glucometer 158H 04/03/23 20:11: Glucometer 150H 04/04/23 05:30: Glucometer 283H 04/04/23 05:53: White Blood Count 6.3, Red Blood Count 4.42, Hemoglobin 10.0#L, Hematocrit 32L, Mean Corpuscular Volume 73L, Mean Corpuscular Hemoglobin 23L, Mean Corpuscular Hemoglobin Concent 31L, Red Cell Distribution Width 17.3H, Platelet Count 434H, Mean Platelet Volume 10.5, Immature Granulocyte % (Auto) 0, Neutrophils (%) (Auto) 45, Lymphocytes (%) (Auto) 47H, Monocytes (%) (Auto) 6, Eosinophils (%) (Auto) 2, Basophils (%) (Auto) 1, Neutrophils # (Auto) 2.8, Lymphocytes # (Auto) 2.9, Monocytes # (Auto) 0.4, Eosinophils # (Auto) 0.1, Basophils # (Auto) 0.0, Immature Granulocyte # (Auto) 0.0, Sodium Level 135, Potassium Level 4.7, Chloride Level 100, Carbon Dioxide Level 22, Anion Gap 13, Blood Urea Nitrogen 11, Creatinine 0.79, Estimat Glomerular Filtration Rate 110, BUN/Creatinine Ratio 14, Glucose Level 288H, Calcium Level 9.2, Corrected Calcium 9.8, Magnesium Level 1.8, Total Bilirubin 0.3, Aspartate Amino Transf (AST/SGOT) 54H, Alanine Aminotransferase (ALT/SGPT) 32, Alkaline Phosphatase 237H, Total Protein 6.4, Albumin 3.3 04/04/23 08:30: Glucometer 155H 04/04/23 10:53: Glucometer 395H Microbiology 04/01/23 MRSA Screen - Final, Complete MRSA not isolated 04/01/23 Urine Culture - Final, Complete Strep agalactiae Group B Mixed Bacterial Lidya See Comments Home Meds Active Reported Insulin Lispro 100 Unit/Ml Vial Unit SQ AC USES PER SLIDING SCALE Tylenol Extra Strength (Acetaminophen) 500 Mg Tablet 1,000 Mg PO Q8H PRN Bupropion HCl 75 Mg Tablet 75 Mg PO BID Ibuprofen 200 Mg Tablet 400 Mg PO Q8H PRN Assessment/Pt Instructions pcp 1 week Discharge Planning: <30 minutes discharge planning Discharge Instructions Discharge Diet: ADA Diet Discharge Physical Examination Vital Signs Vital Signs Date Time Temp Pulse Resp B/P (MAP) Pulse Ox O2 Delivery O2 Flow Rate FiO2 04/04/23 09:05 36.4 109 18 132/76 (94) 97 Room Air General Appearance: No Apparent Distress, WD/WN, Chronically ill Allergies: Coded Allergies: bismuth subsalicylate (Verified Allergy, Unknown, 08/29/22) latex (Unverified Allergy, Unknown, 01/09/23) Discharge Summary Date of Admission Apr 01, 2023 at 14:18 Date of Discharge Discharge Date: Apr 04, 2023 Admission Diagnosis Diabetic Ketoacidosis Discharge Diagnosis dka JOSIE SMYTH DO Apr 04, 2023 11:47
--- NOTE | 2023-04-04 13:57 | Progress Note ---
VENANCIO BARTON 04/04/23 1357: Progress Note Our patient is a 22 yo F with a past medical history of type I diabetes and multiple previous hospitalizations for diabetic ketoacidosis that presented to the emergency room with increased blood sugar. Her symptoms began sometime around 0600 on 04/01 with nausea, vomiting, fatigue, weakness, malaise, SOB, and frequent urination. She took her blood sugar and the glucometer simply read as "high" and she administered insulin. Her subsequent blood sugar read as 193 and she decided to head to the ER. She notes a history of similar occurrences in the past, her first of which occurred at age 12 when she was originally diagnosed with diabetes. After admission she was placed on an insulin drip and and dextrose sodium, improving substantially in the following days. In addition, labwork was notable for microcytic anemia. Subsequent iron and B12 studies were conducted resulting in low iron, transferrin saturation, ferritin, and low-normal B12. She was administered 1 dose of vennofer as well as cyanocobalamin with instructions to supplement her iron and B12 intake after discharge. Due to frequent, diabetic ketoacidosis-related hospitalizations it was decided that a port should be placed and the patient was agreeable to this plan. She was instructed on care of her port as well as the monthly process of having her port flushed. PATITO SMYTH DO 04/04/237: Supervisory-Addendum Brief Verification & Attestation Participated in pt care: history, MDM, physical Personally performed: exam, history, MDM, supervision of care Care discussed with: Medical Student Procedures: n/a Results interpretation: Verified all documentation Verification and Attestation of Medical Student E/M Service A medical student performed and documented this service in my presence. I reviewed and verified all information documented by the medical student and made modifications to such information, when appropriate. I personally performed the physical exam and medical decision making. Patito Smyth Apr 04, 2023,21:37 VENANCIO BARTON Apr 04, 2023 13:57 PATITO SMYTH DO Apr 04, 2023 21:37
[2023-04-05] MEDS ORDERED: CYANOCOBALAMIN 1,000 MCG (VITAMIN B-12) TABLET PO SCH (07:00)
== END 2023-04-04 13:05 | disposition home or self-care (01) | DRG 983 ==
LOC: EDUNIT# 11:43 → ER 11:44 → ICU 14:18 → 4TH 04-03 11:26
PROVIDERS: ADMIT Internal Medicine; ATTEND Internal Medicine
PROC: 02HV33Z Insertion of Infusion Device into Superior Vena Cava, Percutaneous Approach (ICD-10-PCS; 2023-04-04)
PROC: 0JH60WZ Insertion of Totally Implantable Vascular Access Device into Chest Subcutaneous Tissue and Fascia, Open Approach (ICD-10-PCS; principal; 2023-04-04 07:39)
DX: E10.10 Type 1 diabetes mellitus with ketoacidosis without coma (principal); D50.9 Iron deficiency anemia, unspecified; F17.290 Nicotine dependence, other tobacco product, uncomplicated; F32.A Depression, unspecified; F41.9 Anxiety disorder, unspecified; Z91.09 Other allergy status, other than to drugs and biological substances; Z79.1 Long term (current) use of non-steroidal anti-inflammatories (NSAID); Z79.899 Other long term (current) drug therapy
CPT/HCPCS: 36415; 71045; 76000; 80048; 80053; 81000; 82010; 82607; 82728; 82947; 83540; 83550; 83605; 83690; 83735; 84100; 84703; 85025; 87077; 87081; 87088; 93005; 96374

== ENCOUNTER 2023-04-24 17:18 | Emergency (ER) | payer BC, MEDICAID ==
[~2023-04-24] VITALS: Ht 175 cm; Wt 90.0 kg
[~2023-04-24 17:18] MED LIST changes: +INSU100V39 SQ; +OXYM30MI9 NS; +[UNRECOGNIZED DRUG - CODE] MC
[2023-04-24] MEDS ORDERED: NS IV 1000 ML 1,000 ML IV SCH ×2 (18:00→20:30)
[2023-04-24] MEDS ORDERED: ONDANSETRON 4 MG/2 ML (SDV) Z0FRAN IVP ONE (18:00)
[2023-04-24 18:11] LABS: POTASSIUM 4.3 MMOL/L (3.6-5.0)
[2023-04-24 18:12] LABS: BASOPHILS % (AUTO) 0 % (0-10); CALCIUM 8.8 MG/DL (8.5-10.1); EOSINOPHILS # (AUTO) 0.1 10^3/uL (0.0-0.3); EOSINOPHILS % (AUTO) 1 % (0-10); HEMATOCRIT 32 % (35-52); HEMOGLOBIN 9.8 g/dL (11.5-16.0); LYMPHOCYTES # (AUTO) 2.2 10^3/uL (1.0-4.0); LYMPHOCYTES % (AUTO) 31 % (12-44); MEAN CORPUSCULAR HEMOGLOBIN 25 pg (25-34); MEAN CORPUSCULAR HGB CONC 30 g/dL (32-36); MEAN CORPUSCULAR VOLUME 81 fL (80-99); MEAN PLATELET VOLUME 10.2 fL (9.0-12.2); MONOCYTES # (AUTO) 0.5 10^3/uL (0.0-1.0); MONOCYTES % (AUTO) 7 % (0-12); NEUTROPHILS # (AUTO) 4.4 10^3/uL (1.8-7.8); NEUTROPHILS % (AUTO) 61 % (42-75); PLATELET COUNT 361 10^3/uL (130-400); WHITE BLOOD COUNT 7.1 10^3/uL (4.3-11.0)
[2023-04-24 18:16] LABS: CREATININE SERUM 0.84 MG/DL (0.60-1.30)
--- NOTE | 2023-04-24 18:22 | ED General ---
General Chief Complaint: Glucose Problems Stated Complaint: BLOOD SUGAR ISSUES, BODY ACHES Nursing Triage Note: PT STATES ABOUT 1100 GLUCOSE WAS AT 400, 12 UNITS GOT IT DOWN TO 278, HAS BEEN FIGHTING IT ALL DAY, 289 ABOUT 15 MIN CONSULTING UTILITY FORESTER Source of Information: Patient Exam Limitations: No Limitations History of Present Illness Date Seen by Provider: Apr 24, 2023 Time Seen by Provider: 17:58 Initial Comments 22-year-old female presents to the ER with reports of issues with her blood sugar all day. She states that her blood sugar has been as high as 495, and as low as 277. Upon arrival her blood sugar is now 155. Patient did take 12 units of her Humalog today to bring her blood sugar down. She reports that initially she had trace ketones in her urine, and then increased to moderate ketones. She reports abdominal pain, multiple episodes of vomiting and diarrhea. She states that she was last in DKA 1 month ago. She reports that she frequently struggles with maintaining her blood sugar. She states that she used to have an insulin pump, but her supplier is no longer providing her the supplies. She states that she has been using insulin from a vial for the last 4 months. She is also working on getting a continuous glucose monitoring device. 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 She currently takes Lantus 20 units twice daily and Humalog 1 unit per 8 carbs consumed. Allergies and Home Medications Allergies Coded Allergies: bismuth subsalicylate (Verified Allergy, Unknown, 08/29/22) latex (Unverified Allergy, Unknown, 01/09/23) Patient Home Medication List Home Medication List Reviewed: Yes Acetaminophen (Tylenol Extra Strength) 500 Mg Tablet, 1,000 MG PO Q8H PRN for PAIN-MILD (1-4), (Reported) Entered as Reported by: COLT BOURNE on 02/28/23 1150 Bupropion HCl (Bupropion HCl) 75 Mg Tablet, 75 MG PO BID, (Reported) Entered as Reported by: COLT BOURNE on 02/28/23 1150 Ibuprofen (Ibuprofen) 200 Mg Tablet, 400 MG PO Q8H PRN for PAIN-MILD (1-4), (Reported) Entered as Reported by: COLT BOURNE on 01/10/23 1134 Insulin Lispro (Insulin Lispro) 100 Unit/Ml Vial, UNIT SQ AC, (Reported) Entered as Reported by: COLT BOURNE on 04/02/23 0943 Syring W-Ndl,Disp,Insul,0.5 ml (Advocate Syringes) 30 Gauge X 5/16" Disp.syrin, EACH AC, (DME) Prescribed by: JOSIE SMYTH on 04/04/23 1147 Review of Systems Review of Systems Constitutional: see HPI Past Mkmluqq-Vayqva-Ebhbyb Hx Immunizations Up To Date Tetanus Booster (TDap): Less than 5yrs PED Vaccines UTD: Yes First/Initial COVID19 Vaccinat: APR 2021 Second COVID19 Vaccination [place]: MAY 2021 Seasonal Allergies Seasonal Allergies: No Past Medical History Surgery/Hospitalization HX: DM Surgeries: No Respiratory: No Currently Using CPAP: No Currently Using BIPAP: No Cardiac: Yes (TACHYCARDIA) Palpitations Neurological: No Last Menstrual Period: Apr 14, 2023 Reproductive Disorders: No Female Reproductive Disorders: Denies Sexually Transmitted Disease: No HIV/AIDS: No Genitourinary: Yes Bladder Infection Gastrointestinal: Yes (CANNABIS HYPEREMESIS; CHRONIC 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 DX AGE 12) Diabetes, Insulin dep HEENT: No Loss of Vision: Denies Hearing Impairment: Denies Cancer: No Psychosocial: Yes Anxiety, Depression Integumentary: No Blood Disorders: No Adverse Reaction/Blood Tranf: No Family Medical History No Pertinent Family Hx, Other Conditions/Hx Physical Exam Vital Signs Vital Signs - First Documented 04/24/23 17:28 Temp 36.6 Pulse 121 Resp 22 B/P (MAP) 122/83 (96) Pulse Ox 99 O2 Delivery Room Air Capillary Refill : Less Than 3 Seconds Height, Weight, BMI Height: 5'9.00" Weight: 255lbs. 0oz. [id number]; 29.00 BMI Method:Stated General Appearance: No Apparent Distress, WD/WN Neck: Normal Inspection, Supple Respiratory: Lungs Clear, Normal Breath Sounds, No Accessory Muscle Use, No Respiratory Distress Cardiovascular: Regular Rate, Rhythm Gastrointestinal: Normal Bowel Sounds, Non Tender (Reports tenderness in right lower quadrant), Soft; No Guarding Extremity: Normal Inspection, Normal Range of Motion Neurologic/Psychiatric: Alert, No Motor/Sensory Deficits Skin: Normal Color, Warm/Dry Procedures/Interventions Date of ETT Placement: Feb 18, 2021 Time of ETT Placement: 1432 Progress/Results/Core Measures Suspected Sepsis SIRS Temperature: Pulse: 121 Respiratory Rate: 22 Laboratory Tests 04/24/23 17:50: White Blood Count 7.1 Blood Pressure 122 /83 Mean: 96 Laboratory Tests 04/24/23 17:50: Creatinine 0.84, Platelet Count 361 Results/Orders Lab Results Laboratory Tests Test 04/24/23 17:50 04/24/23 17:52 04/24/23 18:33 04/24/23 20:25 Range/Units White Blood Count 7.1 4.3-11.0 10^3/uL Red Blood Count 4.00 3.80-5.11 10^6/uL Hemoglobin 9.8 L 11.5-16.0 g/dL Hematocrit 32 L 35-52 % Mean Corpuscular Volume 81 80-99 fL Mean Corpuscular Hemoglobin 25 25-34 pg Mean Corpuscular Hemoglobin Concent 30 L 32-36 g/dL Red Cell Distribution Width 22.5 H 10.0-14.5 % Platelet Count 361 130-400 10^3/uL Mean Platelet Volume 10.2 9.0-12.2 fL Immature Granulocyte % (Auto) 0 % Neutrophils (%) (Auto) 61 42-75 % Lymphocytes (%) (Auto) 31 12-44 % Monocytes (%) (Auto) 7 0-12 % Eosinophils (%) (Auto) 1 0-10 % Basophils (%) (Auto) 0 0-10 % Neutrophils # (Auto) 4.4 1.8-7.8 10^3/uL Lymphocytes # (Auto) 2.2 1.0-4.0 10^3/uL Monocytes # (Auto) 0.5 0.0-1.0 10^3/uL Eosinophils # (Auto) 0.1 0.0-0.3 10^3/uL Basophils # (Auto) 0.0 0.0-0.1 10^3/uL Immature Granulocyte # (Auto) 0.0 0.0-0.1 10^3/uL Sodium Level 139 135-145 MMOL/L Potassium Level 4.3 3.6-5.0 MMOL/L Chloride Level 106 98-107 MMOL/L Carbon Dioxide Level 17 L 21-32 MMOL/L Anion Gap 16 H 5-14 MMOL/L Blood Urea Nitrogen 13 7-18 MG/DL Creatinine 0.84 0.60-1.30 MG/DL Estimat Glomerular Filtration Rate 102 BUN/Creatinine Ratio 15 Glucose Level 161 H 70-105 MG/DL Calcium Level 8.8 8.5-10.1 MG/DL Lipase 45 8-78 U/L Serum Test, Qualitative NEGATIVE NEGATIVE Glucometer 155 H 70-110 MG/DL Urine Color YELLOW Urine Clarity CLEAR Urine pH 5.5 5-9 Urine Specific Gilbert 1.025 H 1.016-1.022 Urine Protein 1+ H NEGATIVE Urine Glucose (UA) 2+ H NEGATIVE Urine Ketones 2+ H NEGATIVE Urine Nitrite NEGATIVE NEGATIVE Urine Bilirubin 1+ H NEGATIVE Urine Urobilinogen 0.2 < = 1.0 MG/DL Urine Leukocyte Esterase NEGATIVE NEGATIVE Urine RBC (Auto) NEGATIVE NEGATIVE Urine RBC 0-2 /HPF Urine WBC 0-2 /HPF Urine Squamous Epithelial Cells >50 H /HPF Urine Crystals NONE /LPF Urine Amorphous Sediment FEW ESTHELA URATES H /LPF Urine Bacteria TRACE /HPF Urine Casts PRESENT /LPF Urine Hyaline Casts 2-5 H /LPF Urine Mucus LARGE H /LPF Urine Culture Indicated NO Venous Blood pH 7.39 7.31-7.41 Venous Blood Partial Pressure CO2 38 L 40-52 MMHG Venous Blood HCO3 23 22-28 MMOL/L My Orders Orders - LORENA LAWSON APRN Venous Blood Gas (04/24/23 17:57) Ns Iv 1000 Ml (Sodium Chloride 0.9%) (04/24/23 18:00) Ondansetron Injection (Zofran Injectio (04/24/23 18:00) Cbc With Automated Diff (04/24/23 17:57) Ua Culture If Indicated (04/24/23 17:57) Urine Bedside (04/24/23 17:57) Fentanyl Injection (Fentanyl Injection (04/24/23 18:30) Lipase (04/24/23 18:27) Fentanyl Injection (Fentanyl Injection (04/24/23 20:15) Ns Iv 1000 Ml (Sodium Chloride 0.9%) (04/24/23 20:30) Ns Iv 1000 Ml (Sodium Chloride 0.9%) (04/24/23 20:18) Medications Given in ED Current Medications Medications Dose Ordered Sig/Thierno Route Start Time Stop Time Status Last Admin Dose Admin Fentanyl Citrate 50 mcg ONCE ONCE IVP 04/24/23 18:30 04/24/23 18:31 DC 04/24/23 18:30 50 MCG Fentanyl Citrate 50 mcg ONCE ONCE IVP 04/24/23 20:15 04/24/23 20:16 DC 04/24/23 20:22 50 MCG Ondansetron HCl 4 mg ONCE ONCE IVP 04/24/23 18:00 04/24/23 18:01 DC 04/24/23 18:04 4 MG Vital Signs/I&O 04/24/23 04/24/23 17:28 18:30 Temp 36.6 36.6 Pulse 121 Resp 22 B/P (MAP) 122/83 (96) Pulse Ox 99 O2 Delivery Room Air Capillary Refill : Less Than 3 Seconds Blood Pressure Mean: 96 Point of Care Testing Finger Stick Blood Glucose: 155 Blood Glucose Action Taken: LORENA INFORMED Progress Note : Progress Note Patient seen and evaluated, resting comfortably in bed, no acute distress. Based on exam and symptoms, work-up initiated including CBC, CMP, venous blood gas, urinalysis, urine . IV fluids, Zofran, fentanyl ordered. Departure Impression Primary Impression: Hyperglycemia Disposition: HOME, SELF-CARE Condition: Stable Departure-Patient Inst. Decision time for Depature: 21:18 Referrals: COLT LAMBERT DO (PCP/Family) Primary Care Physician Patient Instructions: High Blood Sugar, Adult ED Add. Discharge Instructions: Continue monitoring your blood sugar and taking your insulin as prescribed. Follow-up with your primary care provider and sheet metal worker maintenance. Return for any new, concerning, or worsening symptoms. All discharge instructions reviewed with patient and/or family. Voiced understanding. LORENA LAWSON APRN Apr 24, 2023 18:22
[2023-04-24] MEDS ORDERED: fentaNYL INJECTION 100 MCG/2 ML VIAL IVP ONE ×2 (18:30→20:15)
[2023-04-24 18:54] LABS: CLARITY,URINE CLEAR; COLOR,URINE YELLOW; GLUCOSE, URINE (UA) 2+ (NEGATIVE); KETONES,URINE 2+ (NEGATIVE); PH,URINE 5.5 (5-9); PROTEIN,URINE 1+ (NEGATIVE)
[2023-04-24 18:55] LABS: AMORPHOUS SEDIMENT,UR FEW AMOR URATES /LPF; BACTERIA,URINE TRACE /HPF; LEUKOCYTE ESTERASE ,URINE NEGATIVE (NEGATIVE); NITRITE,URINE NEGATIVE (NEGATIVE); RBC,URINE 0-2 /HPF; SQUAMOUS EPITHELIAL CELL,UR >50 /HPF; WBC,URINE 0-2 /HPF
[2023-04-24] MEDS ORDERED: NS 100 ML (IVPB) BAG IV ONE (20:15)
[2023-04-24] MEDS ORDERED: IOHEXOL 350 MG/ML 100 ML (OMNIPAQUE 350) VIAL IV ONE (20:15)
[2023-04-24] MEDS ORDERED: NS IV 1000 ML 1,000 ML ONE (20:18)
[2023-04-24 21:30] VITALS: BP 121/79
[2023-04-25 07:33] LABS: BILIRUBIN,URINE 1+ (NEGATIVE)
== END 2023-04-24 21:30 | disposition home or self-care (01) ==
LOC: EDUNIT# 17:18 → ER 17:21
DX: E11.65 Type 2 diabetes mellitus with hyperglycemia (principal); Z79.4 Long term (current) use of insulin; Z91.040 Latex allergy status
CPT/HCPCS: 36415; 80048; 81000; 82805; 82947; 83690; 84703; 85025

== ENCOUNTER 2023-04-29 20:02 | Emergency (ER) | payer BC, MEDICAID ==
[~2023-04-29] VITALS: Ht 175.3 cm; Wt 90.7 kg
[2023-04-29] MEDS ORDERED: DEXTROSE 50% 50 ML (IMS) SYR IV ONE (20:15)
[2023-04-29] MEDS ORDERED: DEXTROSE 50% 50 ML (IMS) SYR ONE (20:17)
[2023-04-29 20:25] LABS: BASOPHILS % (AUTO) 1 % (0-10); EOSINOPHILS # (AUTO) 0.1 10^3/uL (0.0-0.3); EOSINOPHILS % (AUTO) 1 % (0-10); HEMATOCRIT 34 % (35-52); HEMOGLOBIN 10.6 g/dL (11.5-16.0); LYMPHOCYTES # (AUTO) 2.9 10^3/uL (1.0-4.0); LYMPHOCYTES % (AUTO) 44 % (12-44); MEAN CORPUSCULAR HEMOGLOBIN 25 pg (25-34); MEAN CORPUSCULAR HGB CONC 32 g/dL (32-36); MEAN CORPUSCULAR VOLUME 78 fL (80-99); MEAN PLATELET VOLUME 9.8 fL (9.0-12.2); MONOCYTES # (AUTO) 0.5 10^3/uL (0.0-1.0); MONOCYTES % (AUTO) 8 % (0-12); NEUTROPHILS # (AUTO) 3.1 10^3/uL (1.8-7.8); NEUTROPHILS % (AUTO) 46 % (42-75); PLATELET COUNT 424 10^3/uL (130-400); WHITE BLOOD COUNT 6.7 10^3/uL (4.3-11.0)
[2023-04-29 20:37] LABS: POTASSIUM 3.8 MMOL/L (3.6-5.0)
[2023-04-29 20:38] LABS: CALCIUM 8.7 MG/DL (8.5-10.1)
[2023-04-29 20:42] LABS: CREATININE SERUM 0.85 MG/DL (0.60-1.30)
[2023-04-29] MEDS ORDERED: D5 NS 1,000 ML IV SOLN 1,000 ML IV STA (20:43)
[2023-04-29 20:44] LABS: MAGNESIUM 1.7 MG/DL (1.6-2.4)
[2023-04-29] MEDS ORDERED: ONDANSETRON INJECTION 4 MG/2 ML (SDV) IVP ONE (20:45)
[2023-04-29 21:25] LABS: CLARITY,URINE SLIGHTLY CLOUDY; COLOR,URINE YELLOW; PH,URINE 5.5 (5-9)
[2023-04-29 21:26] LABS: BACTERIA,URINE FEW /HPF; BILIRUBIN,URINE 3+ (NEGATIVE); GLUCOSE, URINE (UA) TRACE (NEGATIVE); KETONES,URINE 2+ (NEGATIVE); LEUKOCYTE ESTERASE ,URINE 1+ (NEGATIVE); NITRITE,URINE NEGATIVE (NEGATIVE); PROTEIN,URINE 2+ (NEGATIVE); RBC,URINE 0-2 /HPF; WBC,URINE 25-50 /HPF
[2023-04-29 21:27] LABS: AMORPHOUS SEDIMENT,UR LARGE AMOR URATES /LPF; HYALINE CASTS, URINE 25-50 /LPF; SQUAMOUS EPITHELIAL CELL,UR >50 /HPF
--- NOTE | 2023-04-29 21:34 | ED General ---
General Chief Complaint: Glucose Problems Stated Complaint: DEHYDRATED/NAUSEA/AB PAIN Nursing Triage Note: PT AMB TO RM 5 W C/O RUQ PAIN, N/V/D, AND INABILITY TO CONTROL BLOOD SUGAR SX 0800. PT REPORTS 5 EPISODES VOMITING IN THE PAST 1.5 HRS, FSBS 44 DURING TRIAGE. PT STATES BLOOD SUGAR HAS RANGED FROM 80-500+ TODAY. PT A&OX4. Source of Information: Patient Exam Limitations: No Limitations History of Present Illness Date Seen by Provider: Apr 29, 2023 Time Seen by Provider: 20:06 Initial Comments This 22-year-old young lady presents to the emergency room by private vehicle with complaints of nausea, vomiting, diarrhea, and difficulty maintaining her blood sugars. She typically presents to the emergency room with hyperglycemia and often DKA. Today she is hypoglycemic. She reports blood sugar at home was 89. She complains of some right upper quadrant pain. She has been evaluated for abdominal pain in the past with multiple imaging studies. On record in this EMR there are 2 right upper quadrant ultrasounds demonstrating fatty liver disease but no other acute abnormalities. CT performed previously demonstrated no appendicitis or other acute abnormalities. Patient is afebrile. She reports running out of food at home and only eating broccoli today. She is alert and oriented and in no acute distress. Pain in the right upper quadrant radiates to her back. Allergies and Home Medications Allergies Coded Allergies: bismuth subsalicylate (Verified Allergy, Unknown, 08/29/22) latex (Unverified Allergy, Unknown, 01/09/23) Patient Home Medication List Home Medication List Reviewed: Yes Acetaminophen (Tylenol Extra Strength) 500 Mg Tablet, 1,000 MG PO Q8H PRN for PAIN-MILD (1-4), (Reported) Entered as Reported by: COLT BOURNE on 02/28/23 1150 Bupropion HCl (Bupropion HCl) 75 Mg Tablet, 75 MG PO BID, (Reported) Entered as Reported by: COLT BOURNE on 02/28/23 1150 Cephalexin (Cephalexin) 500 Mg Tablet, 500 MG PO TID Prescribed by: SANTI SOSA on 04/30/23 0034 Ibuprofen (Ibuprofen) 200 Mg Tablet, 400 MG PO Q8H PRN for PAIN-MILD (1-4), (Reported) Entered as Reported by: COLT BOURNE on 01/10/23 1134 Insulin Lispro (Insulin Lispro) 100 Unit/Ml Vial, UNIT AC, (Reported) Entered as Reported by: COLT BOURNE on 04/02/23 0943 Ondansetron (Ondansetron Odt) 4 Mg Tab.rapdis, 4 MG SL Q4H PRN for NAUSEA/VOMITING Prescribed by: SANTI SOSA on 04/30/23 0034 Syring W-Ndl,Disp,Insul,0.5 ml (Advocate Syringes) 30 Gauge X 5/16" Disp.syrin, EACH [facility] , (DME) Prescribed by: JOSIE SMYTH on 04/04/23 1147 Review of Systems Review of Systems Constitutional: no symptoms reported EENTM: no symptoms reported Respiratory: no symptoms reported Cardiovascular: no symptoms reported Gastrointestinal: see HPI Genitourinary: no symptoms reported : No Musculoskeletal: no symptoms reported Skin: no symptoms reported Psychiatric/Neurological: No Symptoms Reported Hematologic/Lymphatic: No Symptoms Reported Immunological/Allergic: no symptoms reported Past Bilkvnt-Ntecag-Zquzpe Hx Patient Social History Tobacco Use?: No Use of E-Cig and/or Vaping dev: Yes E-Cig or Vaping type used: Nicotine Use of E-Cig and/or Vaping Tom: Current Everyday User Substance use?: No Alcohol Use?: Yes Alcohol Frequency: Rarely Immunizations Up To Date Tetanus Booster (TDap): Less than 5yrs PED Vaccines UTD: Yes First/Initial COVID19 Vaccinat: APR 2021 Second COVID19 Vaccination [place]: MAY 2021 Third COVID19 Vaccination Date: APR 2021 Seasonal Allergies Seasonal Allergies: No Past Medical History Surgery/Hospitalization HX: DM, PORT PLACEMENT Surgeries: Yes (Port placement) Respiratory: No Currently Using CPAP: No Currently Using BIPAP: No Cardiac: Yes (TACHYCARDIA) Palpitations Neurological: No Last Menstrual Period: Apr 11, 2023 Reproductive Disorders: No Female Reproductive Disorders: Denies Sexually Transmitted Disease: No HIV/AIDS: No Genitourinary: Yes Bladder Infection Gastrointestinal: Yes (CANNABIS HYPEREMESIS; CHRONIC 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 DX AGE 12) Diabetes, Insulin dep HEENT: No Loss of Vision: Denies Hearing Impairment: Denies Cancer: No Psychosocial: Yes Anxiety, Depression Integumentary: No Blood Disorders: No Adverse Reaction/Blood Tranf: No Family Medical History No Pertinent Family Hx, Other Conditions/Hx Physical Exam Vital Signs Vital Signs - First Documented 04/29/23 20:08 Temp 36.6 Pulse 136 Resp 20 B/P (MAP) 125/78 (94) Pulse Ox 98 O2 Delivery Room Air Capillary Refill : Less Than 3 Seconds Height, Weight, BMI Height: 5'9.00" Weight: 255lbs. 0oz. 115.508865wv; 29.00 BMI Method:Stated General Appearance: No Apparent Distress, WD/WN HEENT: PERRL/EOMI, Normal ENT Inspection Neck: Normal Inspection Respiratory: Lungs Clear, Normal Breath Sounds, No Accessory Muscle Use Cardiovascular: No Edema, No Murmur, Tachycardia (Regular) Gastrointestinal: Normal Bowel Sounds, Soft, Tenderness (Right upper quadrant) Extremity: Normal Inspection, No Pedal Edema Neurologic/Psychiatric: Alert, Oriented x3, No Motor/Sensory Deficits, Normal Mood/Affect Skin: Normal Color, Warm/Dry Procedures/Interventions Date of ETT Placement: Feb 18, 2021 Time of ETT Placement: 1431 Progress/Results/Core Measures Suspected Sepsis SIRS Temperature: Pulse: 136 Respiratory Rate: 20 Laboratory Tests 04/29/23 20:18: White Blood Count 6.7 Blood Pressure 125 /78 Mean: 94 Laboratory Tests 04/29/23 20:18: Creatinine 0.85, Platelet Count 424H, Total Bilirubin 0.3 Results/Orders Lab Results Laboratory Tests Test 04/29/23 20:13 04/29/23 20:18 04/29/23 20:41 04/29/23 21:08 Range/Units Glucometer 44 *L 103 70-110 MG/DL White Blood Count 6.7 4.3-11.0 10^3/uL Red Blood Count 4.31 3.80-5.11 10^6/uL Hemoglobin 10.6 L 11.5-16.0 g/dL Hematocrit 34 L 35-52 % Mean Corpuscular Volume 78 L 80-99 fL Mean Corpuscular Hemoglobin 25 25-34 pg Mean Corpuscular Hemoglobin Concent 32 32-36 g/dL Red Cell Distribution Width 21.2 H 10.0-14.5 % Platelet Count 424 H 130-400 10^3/uL Mean Platelet Volume 9.8 9.0-12.2 fL Immature Granulocyte % (Auto) 1 % Neutrophils (%) (Auto) 46 42-75 % Lymphocytes (%) (Auto) 44 12-44 % Monocytes (%) (Auto) 8 0-12 % Eosinophils (%) (Auto) 1 0-10 % Basophils (%) (Auto) 1 0-10 % Neutrophils # (Auto) 3.1 1.8-7.8 10^3/uL Lymphocytes # (Auto) 2.9 1.0-4.0 10^3/uL Monocytes # (Auto) 0.5 0.0-1.0 10^3/uL Eosinophils # (Auto) 0.1 0.0-0.3 10^3/uL Basophils # (Auto) 0.0 0.0-0.1 10^3/uL Immature Granulocyte # (Auto) 0.0 0.0-0.1 10^3/uL Sodium Level 141 135-145 MMOL/L Potassium Level 3.8 3.6-5.0 MMOL/L Chloride Level 108 H 98-107 MMOL/L Carbon Dioxide Level 17 L 21-32 MMOL/L Anion Gap 16 H 5-14 MMOL/L Blood Urea Nitrogen 9 7-18 MG/DL Creatinine 0.85 0.60-1.30 MG/DL Estimat Glomerular Filtration Rate 101 BUN/Creatinine Ratio 11 Glucose Level 48 *L 70-105 MG/DL Calcium Level 8.7 8.5-10.1 MG/DL Magnesium Level 1.7 1.6-2.4 MG/DL Total Bilirubin 0.3 0.1-1.0 MG/DL Direct Bilirubin 0.1 0.0-0.3 MG/DL Indirect Bilirubin 0.2 MG/DL Aspartate Amino Transf (AST/SGOT) 29 5-34 U/L Alanine Aminotransferase (ALT/SGPT) 24 0-55 U/L Alkaline Phosphatase 199 H 40-136 U/L Total Protein 6.5 6.4-8.2 GM/DL Albumin 3.4 3.2-4.5 GM/DL Lipase 36 8-78 U/L Serum Test, Qualitative NEGATIVE NEGATIVE Urine Color YELLOW Urine Clarity SLIGHTLY CLOUDY Urine pH 5.5 5-9 Urine Specific [place] >=1.030 1.016-1.022 Urine Protein 2+ H NEGATIVE Urine Glucose (UA) TRACE H NEGATIVE Urine Ketones 2+ H NEGATIVE Urine Nitrite NEGATIVE NEGATIVE Urine Bilirubin 3+ H NEGATIVE Urine Urobilinogen 1.0 < = 1.0 MG/DL Urine Leukocyte Esterase 1+ H NEGATIVE Urine RBC (Auto) TRACE H NEGATIVE Urine RBC 0-2 /HPF Urine WBC 25-50 H /HPF Urine Squamous Epithelial Cells >50 H /HPF Urine Crystals PRESENT H /LPF Urine Amorphous Sediment LARGE ESTHELA URATES H /LPF Urine Bacteria FEW H /HPF Urine Casts PRESENT /LPF Urine Hyaline Casts 25-50 H /LPF Urine Mucus LARGE H /LPF Urine Other /HPF Urine Culture Indicated YES Test 04/29/23 21:42 04/29/23 22:57 Range/Units Glucometer 202 H 304 H 70-110 MG/DL My Orders Orders - SANTI NOBLES MD Basic Metabolic Panel (04/29/23 20:06) Cbc With Automated Diff (04/29/23 20:06) Hcg,Qualitative Serum (04/29/23 20:06) Magnesium (04/29/23 20:06) Ua Culture If Indicated (04/29/23 20:06) Accucheck Stat ONCE (04/29/23 20:06) Ed Iv/Invasive Line Start (04/29/23 20:06) D50w (Emergency) Syringe (Dextrose 50% 5 (04/29/23 20:15) D50w (Emergency) Syringe (Dextrose 50% 5 (04/29/23 20:17) Accucheck Stat ONCE (04/29/23 20:42) Accucheck Stat ONCE (04/29/23 20:42) Accucheck Stat ONCE (04/29/23 20:42) Accucheck Stat ONCE (04/29/23 20:42) Ondansetron Injection (Zofran Injectio (04/29/23 20:45) D5 Ns 1,000 Ml Iv Soln (Dextrose 5%/0.9 (04/29/23 20:43) Liver Panel (04/29/23 21:22) Lipase (04/29/23 21:22) Urine Culture (04/29/23 21:08) Fentanyl Injection (Fentanyl Injection (04/29/23 21:45) Lactated Ringers (Lr 1000 Ml Iv Solution (04/29/23 22:45) Ceftriaxone Iv/Im (Ceftriaxone Iv/Im) (04/29/23 22:31) Ketorolac Injection (Ketorolac Injection (04/29/23 23:45) Medications Given in ED Current Medications Medications Dose Ordered Sig/Thierno Route Start Time Stop Time Status Last Admin Dose Admin Dextrose 25 ml ONCE ONCE IV 04/29/23 20:15 04/29/23 20:16 DC 04/29/23 20:21 25 ML Fentanyl Citrate 50 mcg ONCE ONCE IVP 04/29/23 21:45 04/29/23 21:46 DC 04/29/23 21:41 50 MCG Ketorolac Tromethamine 30 mg ONCE ONCE IVP 04/29/23 23:45 04/29/23 23:46 DC 04/29/23 23:56 30 MG Lactated Ringer's 1,000 ml @ 0 mls/hr Q0M ONCE IV 04/29/23 22:45 04/29/23 22:46 DC 04/29/23 23:39 1,000 MLS/HR Ondansetron HCl 8 mg ONCE ONCE IVP 04/29/23 20:45 04/29/23 20:46 DC 04/29/23 20:56 8 MG Vital Signs/I&O 04/29/23 04/30/23 20:08 00:44 Temp 36.6 Pulse 136 104 Resp 20 18 B/P (MAP) 125/78 (94) 117/77 Pulse Ox 98 100 O2 Delivery Room Air Room Air Capillary Refill : Less Than 3 Seconds Blood Pressure Mean: 94 Point of Care Testing Finger Stick Blood Glucose: 103 Blood Glucose Action Taken: DR. NOBLES NOTIFIED Progress Note : Time: 21:30 Progress Note Chief complaint reviewed at 2005 and initial labs ordered on the known type 1 diabetic patient. Nursing staff provided me with reports and updates as well as request for orders until I was able to physically examine the patient at 2124. An amp of D50 was administered for the hypoglycemia. A liter of D5 normal saline was then infused. This was followed by a liter of LR. Blood sugars trended up nicely. Labs were obtained, reviewed and interpreted by me. CBC was relatively on remarkable except for hemoglobin of 10.6. BMP relatively unremarkable. CO2 was 17. Glucose was 48. Transaminases were unremarkable. Urinalysis suggested pyuria with 25-50 WBC and few bacteria. Mild dehydration was suggested by hyaline casts, 2+ ketones, and high specific gravity. Patient received fentanyl for pain control. Pain rebounded. She was further treated with Toradol. She has had her right upper quadrant thoroughly imaged in the past with multiple ultrasounds and hepatobiliary scan without any pathology noted. CT in the past was also unremarkable. Given absence of fever or labs to suggest serious infection involving the right upper quadrant, we discussed deferring imaging and proceeding with conservative treatment at this time. Patient is agreeable to that plan. Toradol was administered for pain management which was very effective. Urinary tract infection was treated with Rocephin. Blood sugar demonstrated stability prior to discharge. Patient had noted she does not have adequate food in the home. A sandwich tray was ordered for her prior to discharge. Departure Impression Primary Impression: Right upper quadrant abdominal pain Additional Impressions: Hypoglycemia Nausea & vomiting Qualified Codes: R11.2 - Nausea with vomiting, unspecified UTI (urinary tract infection) Qualified Codes: N39.0 - Urinary tract infection, site not specified Disposition: HOME, SELF-CARE Condition: Improved Departure-Patient Inst. Decision time for Depature: 00:32 Referrals: COLT LAMBERT DO (PCP/Family) Primary Care Physician Patient Instructions: Abdominal Pain, Adult ED, Urinary Tract Infection, Adult ED Add. Discharge Instructions: Start with primarily clear liquids and gradually advance your diet with small quantities of bland food as tolerated. Continue your insulin regimen as previously directed. You may use Zofran (ondansetron) as prescribed for nausea or vomiting. For pain, start with Tylenol (acetaminophen) up to 1000 mg every 6 hours as needed. For pain not controlled by Tylenol, you may add ibuprofen up to 600 mg every 6 hours as needed. Take with food or milk to avoid stomach irritation. Ibuprofen should only be used for short-term relief of pain, but not used long- term. Follow-up with your primary care provider in about 48 hours to review urine culture results. Return to care if you have worsening symptoms despite following these instructions. All discharge instructions reviewed with patient and/or family. Voiced understanding. Scripts Cephalexin (Cephalexin) 500 Mg Tablet 500 MG PO TID, #20 TAB Prov: SANTI NOBLES MD 04/30/23 Ondansetron (Ondansetron Odt) 4 Mg Tab.rapdis 4 MG SL Q4H PRN for NAUSEA/VOMITING, #10 TAB Prov: SANTI NOBLES MD 04/30/23 Copy Copies To 1: COLT LAMBERT JOSHUA T MD Apr 29, 2023 21:34
[2023-04-29 21:36] LABS: ALBUMIN 3.4 GM/DL (3.2-4.5)
[2023-04-29 21:39] LABS: TOTAL PROTEIN 6.5 GM/DL (6.4-8.2)
[2023-04-29 21:41] LABS: BILIRUBIN,TOTAL 0.3 MG/DL (0.1-1.0)
[2023-04-29 21:44] LABS: BILIRUBIN,DIRECT 0.1 MG/DL (0.0-0.3); BILIRUBIN,INDIRECT 0.2 MG/DL
[2023-04-29] MEDS ORDERED: fentaNYL INJECTION 100 MCG/2 ML VIAL IVP ONE (21:45)
[2023-04-29] MEDS ORDERED: cefTRIAXone IV/IM 1,000 MG in NS (IVPB) 50 ML 50 ML IV STA (22:31)
[2023-04-29] MEDS ORDERED: LACTATED RINGERS 1,000 ML IV ONE (22:45)
[2023-04-29] MEDS ORDERED: cefTRIAXone 1,000 MG VIAL IV/IM ONE (23:08)
[2023-04-29] MEDS ORDERED: KETOROLAC INJ 30 MG/ML VIAL IVP ONE (23:45)
[2023-04-30] MEDS ORDERED: ONDA4TAB11 SL (00:34)
[2023-04-30] MEDS ORDERED: CEPH500T PO (00:34)
[2023-04-30 00:44] VITALS: BP 117/77
== END 2023-04-30 00:46 | disposition home or self-care (01) ==
LOC: EDUNIT# 20:02 → ER 20:05
DX: N39.0 Urinary tract infection, site not specified (principal); E10.649 Type 1 diabetes mellitus with hypoglycemia without coma; E10.10 Type 1 diabetes mellitus with ketoacidosis without coma; R11.2 Nausea with vomiting, unspecified; Z91.040 Latex allergy status; F17.290 Nicotine dependence, other tobacco product, uncomplicated
CPT/HCPCS: 36415; 80048; 80076; 81000; 82947; 83690; 83735; 84703; 85025; 87088

== ENCOUNTER 2023-05-07 19:38 | Inpatient (IN) | payer BC, MEDICAID ==
[~2023-05-07] VITALS: Ht 175.2 cm; Wt 97.5 kg
[2023-05-07] MEDS ORDERED: PANTOPRAZOLE INJECTION 40 MG VIAL IV ONE (20:00)
[2023-05-07] MEDS ORDERED: NS IV 1000 ML 1,000 ML IV SCH ×2 (20:00→22:15)
[2023-05-07] MEDS ORDERED: ONDANSETRON INJECTION 4 MG/2 ML (SDV) IVP ONE (20:00)
--- NOTE | 2023-05-07 20:03 | ED General ---
General Chief Complaint: Glucose Problems Stated Complaint: DKA Nursing Triage Note: PT AMB TO RM 5 WITH CC OF ELEVATED BLOOD SUGAR. PT STATES THAT SHE HAS BEEN UNABLE TO KEEP BLOOD SUGAR STABLE THE LAST 3 HOURS. PT REPORTS THAT SHE HAS VOMITED 8-10X TIMES TODAY AND BECAME LIGHTHEADED. PT TOOK 8 UNITS INSULIN AT 1900. Source of Information: Caregiver, Old Records History of Present Illness Date Seen by Provider: May 07, 2023 Time Seen by Provider: 19:45 Initial Comments PT ARRIVES VIA POV FROM WORK ( WORKS AT [employer]) PT STATES SHE FEELS LIKE SHE IS IN DKA--PT IS TYPE 1 DIABETIC, HX OF FREQUENT EPISODE OF DKA PT STATES HER BLOOD GLUCOSE WAS 491 AT 1845, SHE TOOK 8 UNITS OF REGULAR INSUL IN. SHE ATE EGG SALAD SANDWICH AT 1600 AND BLOOD GLUCOSE WAS IN THE 200'S AT THAT TIME, AND SHE TOOK 3 UNITS OF REGULAR INSULIN. FOR THE LAST 3 HOURS SHE HAS HAD NAUSEA, VOMITING AND DRY HEAVES--HAS VOMITED 8- 10 TIMES, SHE HAS FELT LIGHTHEADED, SHORT OF BREATH AND HAD BODY ACHES NO FEVER NO URINARY SYMPTOMS NO ABDOMINAL PAIN NO DIARRHEA NO CHEST PAIN NO COUGH OR URI SYMPTOMS PT NORMALLY IS ON SLIDING SCALE REGULAR INSULIN AND TAKES LANTUS 25 UNITS IN THE MORNING AND AT NIGHT. 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 LMP--NOW. NO CONTROL DELIVERED 12/07/22--STILLBORN AT 29/30 WEEKS GESTATION. PT WITH MULTITUDE OF VISITS, AND LONG HISTORY OF NON-COMPLIANCE PT ALSO HAS LONG HISTORY OF CHRONIC NAUSEA/VOMITING AND ABDOMINAL PAIN AND CANNABIS HYPEREMESIS SYNDROME THIS IS 3RD VISIT SINCE APR 24 FOR SAME COMPLAINT LAST ADMIT WAS APRIL 01-2022 FOR DKA PCP: DR. LAMBERT AT [facility]. 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[employer]--HAS NOT SEEN "FOR AWHILE" Allergies and Home Medications Allergies Coded Allergies: bismuth subsalicylate (Verified Allergy, Unknown, 08/29/22) latex (Unverified Allergy, Unknown, 01/09/23) Patient Home Medication List Acetaminophen (Tylenol Extra Strength) 500 Mg Tablet, 1,000 MG PO Q8H PRN for PAIN-MILD (1-4), (Reported) Entered as Reported by: COLT BOURNE on 02/28/23 1150 Bupropion HCl (Bupropion HCl) 75 Mg Tablet, 75 MG PO BID, (Reported) Entered as Reported by: COLT BOURNE on 02/28/23 1150 Cephalexin (Cephalexin) 500 Mg Tablet, 500 MG PO TID Prescribed by: SANTI SOSA on 04/30/23 0034 Ibuprofen (Ibuprofen) 200 Mg Tablet, 400 MG PO Q8H PRN for PAIN-MILD (1-4), (Reported) Entered as Reported by: COLT BOURNE on 01/10/23 1134 Insulin Lispro (Insulin Lispro) 100 Unit/Ml Vial, UNIT SQ AC, (Reported) Entered as Reported by: COLT BOURNE on 04/02/23 0943 Ondansetron (Ondansetron Odt) 4 Mg Tab.rapdis, 4 MG SL Q4H PRN for NAUSEA/VOMITING Prescribed by: SANTI SOSA on 04/30/23 0034 Syring W-Ndl,Disp,Insul,0.5 ml (Advocate Syringes) 30 Gauge X 5/16" Disp.syrin, EACH [facility], (DME) Prescribed by: JOSIE SMYTH on 04/04/23 1147 Review of Systems Review of Systems Constitutional: see HPI, dizziness, malaise, weakness EENTM: no symptoms reported Respiratory: see HPI; No cough; short of breath Cardiovascular: no symptoms reported Gastrointestinal: see HPI; No abdominal pain; nausea, vomiting Genitourinary: no symptoms reported LMP: May 06, 2023 Musculoskeletal: see HPI Skin: no symptoms reported Psychiatric/Neurological: No Symptoms Reported Past Cdybuic-Irjybz-Zbionl Hx Patient Social History Tobacco Use?: No Use of E-Cig and/or Vaping dev: Yes E-Cig or Vaping type used: Nicotine Use of E-Cig and/or Vaping Tom: Current Everyday User Substance use?: Yes Substance type: Marijuana Substance frequency: Daily Alcohol Use?: No Immunizations Up To Date Tetanus Booster (TDap): Less than 5yrs PED Vaccines UTD: Yes First/Initial COVID19 Vaccinat: APR 2021 Second COVID19 Vaccination [place]: MAY 2021 Third COVID19 Vaccination Date: APR 2021 Seasonal Allergies Seasonal Allergies: No Past Medical History Surgery/Hospitalization HX: DM, PORT PLACEMENT Surgeries: Yes (Port placement) Respiratory: No Currently Using CPAP: No Currently Using BIPAP: No Cardiac: Yes (TACHYCARDIA) Palpitations Neurological: No Reproductive Disorders: No Female Reproductive Disorders: Denies Sexually Transmitted Disease: No HIV/AIDS: No Genitourinary: Yes Bladder Infection Gastrointestinal: Yes (CANNABIS HYPEREMESIS; CHRONIC 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 DX AGE 12) Diabetes, Insulin dep HEENT: No Loss of Vision: Denies Hearing Impairment: Denies Cancer: No Psychosocial: Yes Anxiety, Depression Integumentary: No Blood Disorders: No Adverse Reaction/Blood Tranf: No Family Medical History No Pertinent Family Hx, Other Conditions/Hx DELIVERED 12/07/22--STILLBORN AT 29/30 WEEKS GESTATION. Physical Exam Vital Signs Vital Signs - First Documented 05/07/23 19:45 Temp 36.4 Pulse 108 B/P (MAP) 138/92 (107) Pulse Ox 100 O2 Delivery Room Air Capillary Refill : Height, Weight, BMI Height: 5'9.00" Weight: 255lbs. 0oz. 115.497691lc; 30.00 BMI Method:Stated General Appearance: No Apparent Distress, WD/WN, Other (QUIET, KEEPS EYES CLOSED) HEENT: PERRL/EOMI Neck: Normal Inspection Respiratory: Normal Breath Sounds, No Accessory Muscle Use, No Respiratory Distress Cardiovascular: Regular Rate, Rhythm, No Murmur Gastrointestinal: Soft Back: No CVA Tenderness Extremity: Normal Inspection Neurologic/Psychiatric: Alert, Oriented x3, No Motor/Sensory Deficits, duplicating machine servicer II- XII Norm as Tested Skin: Normal Color, Warm/Dry Focused Exam Lactate Level 05/07/23 20:05: Lactic Acid Level Laboratory Tests Test 05/07/23 20:05 Procedures/Interventions Date of ETT Placement: Feb 18, 2021 Time of ETT Placement: 2 Progress/Results/Core Measures Suspected Sepsis SIRS Temperature: Pulse: 108 Respiratory Rate: Laboratory Tests 05/07/23 20:05: Blood Pressure 138 /92 Mean: 107 05/07/23 20:05: Laboratory Tests 05/07/23 20:05: Results/Orders Lab Results Laboratory Tests Test 05/07/23 19:50 05/07/23 20:05 05/07/23 20:10 Range/Units Glucometer 155 H 70-110 MG/DL Venous Blood pH 7.36 7.31-7.41 Venous Blood Partial Pressure CO2 20 L 40-52 MMHG Venous Blood HCO3 11 L 22-28 MMOL/L My Orders Orders - LADONNA RANGEL DO Accucheck Stat ONCE (05/07/23 19:49) Ed Iv/Invasive Line Start (05/07/23 19:49) Urine Bedside (05/07/23 19:49) Monitor-Rhythm Ecg Trace Only (05/07/23 19:49) Alcohol (05/07/23 19:49) Amylase (05/07/23 19:49) Cbc With Automated Diff (05/07/23 19:49) Comprehensive Metabolic Panel (05/07/23 19:49) Drug Screen Stat (Urine) (05/07/23 19:49) Hcg,Qualitative Serum (05/07/23 19:49) Lactic Acid Analyzer (05/07/23 19:49) Lipase (05/07/23 19:49) Magnesium (05/07/23 19:49) Ua Culture If Indicated (05/07/23 19:49) Ed Iv/Invasive Line Start (05/07/23 19:49) Ns Iv 1000 Ml (Ns Iv 1000 Ml) (05/07/23 20:00) Beta Hydroxybutyrate (05/07/23 19:49) Hemoglobin A1c (05/07/23 19:49) Venous Blood Gas (05/07/23 19:49) Ondansetron Injection (Ondansetron Inj (05/07/23 20:00) Pantoprazole Injection (Pantoprazole Inj (05/07/23 20:00) Covid 19 Inhouse Test (05/07/23 19:55) Influenza A And B By Pcr (05/07/23 19:55) Medications Given in ED Current Medications Medications Dose Ordered Sig/Thierno Route Start Time Stop Time Status Last Admin Dose Admin Ondansetron HCl 8 mg ONCE ONCE IVP 05/07/23 20:00 05/07/23 20:01 DC 05/07/23 20:23 8 MG Pantoprazole 40 mg ONCE ONCE IV 05/07/23 20:00 05/07/23 20:01 DC 05/07/23 20:23 40 MG Vital Signs/I&O 05/07/23 19:45 Temp 36.4 Pulse 108 B/P (MAP) 138/92 (107) Pulse Ox 100 O2 Delivery Room Air Capillary Refill : Blood Pressure Mean: 107 Point of Care Testing Finger Stick Blood Glucose: 155 Blood Glucose Action Taken: RN NOTIFIED Progress Note : Progress Note VITALS : TEMP 36.4, HR 108, RR 18, BP 138/92, O2 SAT 100% ON ROOM AIR ACCUCHECK 155 ON ARRIVAL GIVEN: -IV FLUIDS -PROTONIX -ZOFRAN LABS: -CBC -CMP -AMYLASE/LIPASE -BETA HYDROXYBUTYRATE -VENOUS BLOOD GAS WITH PH 7.36, PCO2 22, HCO3 11 -HCG -UA -UDS -ETOH Departure Departure-Patient Inst. Referrals: COLT LAMBERT DO (PCP/Family) Primary Care Physician LADONNA RANGEL DO May 07, 2023 20:02
[2023-05-07 20:23] LABS: BASOPHILS % (AUTO) 1 % (0-10); EOSINOPHILS % (AUTO) 0 % (0-10); HEMATOCRIT 34 % (35-52); HEMOGLOBIN 10.4 g/dL (11.5-16.0); LYMPHOCYTES # (AUTO) 1.4 10^3/uL (1.0-4.0); LYMPHOCYTES % (AUTO) 19 % (12-44); MEAN CORPUSCULAR HEMOGLOBIN 25 pg (25-34); MEAN CORPUSCULAR HGB CONC 30 g/dL (32-36); MEAN CORPUSCULAR VOLUME 83 fL (80-99); MEAN PLATELET VOLUME 9.8 fL (9.0-12.2); MONOCYTES # (AUTO) 0.5 10^3/uL (0.0-1.0); MONOCYTES % (AUTO) 7 % (0-12); NEUTROPHILS # (AUTO) 5.7 10^3/uL (1.8-7.8); NEUTROPHILS % (AUTO) 74 % (42-75); PLATELET COUNT 439 10^3/uL (130-400); WHITE BLOOD COUNT 7.7 10^3/uL (4.3-11.0)
[2023-05-07 20:51] LABS: ALANINE AMINOTRANSFERASE 28 U/L (0-55); ALBUMIN 3.6 GM/DL (3.2-4.5); ALKALINE PHOSPHATASE 215 U/L (40-136); AMYLASE 71 U/L (25-125); BILIRUBIN,TOTAL 0.4 MG/DL (0.1-1.0); BUN/CREATININE RATIO 11; CALCIUM 8.6 MG/DL (8.5-10.1); CARBON DIOXIDE 10 MMOL/L (21-32); CHLORIDE 107 MMOL/L (98-107); CREATININE SERUM 0.94 MG/DL (0.60-1.30); GFR ESTIMATED 89; GLUCOSE 138 MG/DL (70-105); LIPASE 23 U/L (8-78); MAGNESIUM 1.9 MG/DL (1.6-2.4); POTASSIUM 3.6 MMOL/L (3.6-5.0); SODIUM 138 MMOL/L (135-145); TOTAL PROTEIN 6.7 GM/DL (6.4-8.2)
[2023-05-07 21:47] LABS: AMPHETAMINE SCREEN, URINE NEGATIVE (NEGATIVE); BARBITURATE SCREEN URINE NEGATIVE (NEGATIVE); BENZODIAZEPINES SCREEN URINE NEGATIVE (NEGATIVE); CANNABINOID SCREEN, URINE NEGATIVE (NEGATIVE); CLARITY,URINE SLIGHTLY CLOUDY; COCAINE SCREEN URINE NEGATIVE (NEGATIVE); COLOR,URINE YELLOW; GLUCOSE, URINE (UA) NEGATIVE (NEGATIVE); KETONES,URINE 4+ (NEGATIVE); METHADONE STAT NEGATIVE (NEGATIVE); OPIATE SCREEN URINE NEGATIVE (NEGATIVE); OXYCODONE STAT NEGATIVE (NEGATIVE); PH,URINE 5.5 (5-9); PROPOXYPHENE STAT NEGATIVE (NEGATIVE); PROTEIN,URINE 2+ (NEGATIVE); TRICYCLIC ANTIDEPRESSANTS SCRE NEGATIVE (NEGATIVE)
[2023-05-07 21:48] LABS: BACTERIA,URINE TRACE /HPF; BILIRUBIN,URINE 3+ (NEGATIVE); LEUKOCYTE ESTERASE ,URINE NEGATIVE (NEGATIVE); NITRITE,URINE NEGATIVE (NEGATIVE); RBC,URINE 25-50 /HPF; SQUAMOUS EPITHELIAL CELL,UR 0-2 /HPF; WBC,URINE 0-2 /HPF
[2023-05-07 21:49] LABS: AMORPHOUS SEDIMENT,UR MOD AMOR URATES /LPF
--- NOTE | 2023-05-07 22:02 | Tele-ICU Progress Note ---
Subjective Date Seen by a Provider: May 07, 2023 Subjective/Events-last exam This virtual visit was conducted using real time audio/video. Thank you for asking us to see this patient for critical care services due to DKA Recent events: Took 8 Units Regular at 1845 PE: VSS. O2 sat 100% on RA HEENT: No obvious masses, adenopathy or JVD. Chest: clear to auscultation. CV: RRR S1 S2 No murmur or added sounds. Abd: Non-tender. Bowel sounds Y. : Unremarkable. Jeffries N. ORTHOPHOTOGRAPHY TECHNICIAN/psychiatric: Grossly intact. No obvious focal findings. Extremities: No edema. Capillary refill < 3 seconds. Skin: unremarkable. Results: Elevated BG 138, AG 21, Lact 5.81. Decreased CO2 10, Hb 10.4. No ABG. Available chart/ vitals / labs / images reviewed. Video assessment done using teleICU camera, rest of exam as per RN. A/P: . Critical Care: critically ill patient. Cont. IVF, insulin PRN Zofran. Discussed with JUSTIN Shirley and ER MD Dr. Martinez.. Asked RN to reach out to eICU if any questions or concerns later. Time spent with patient/coordination of care with other health professionals (mins): 22 Sepsis Event Evaluation Height, Weight, BMI Height: 5'9.00" Weight: 255lbs. 0oz. 115.860231in; 30.00 BMI Method:Stated Focused Exam Lactate Level 05/07/23 20:05: Lactic Acid Level 5.81*H Lactic Acid Level Laboratory Tests Test 05/07/23 20:05 Lactic Acid Level 5.81 MMOL/L (0.50-2.00) *H Exam Exam Patient acknowledged, consented, and participated in this virtual visit which was conducted using real time audio/video Vital Signs Date Time Temp Pulse Resp B/P (MAP) Pulse Ox O2 Delivery O2 Flow Rate FiO2 05/07/23 19:45 36.4 108 138/92 (107) 100 Room Air Height & Weight Height: 5'9.00" Weight: 255lbs. 0oz. 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 Critical Care: Critically Ill Patient ALESIA SULLIVAN MD May 07, 2023 22:01
[2023-05-07] MEDS ORDERED: ONDANSETRON INJECTION 4 MG/2 ML (SDV) IV PRN (22:15)
[2023-05-07] MEDS ORDERED: POTASSIUM CL 10MEQ/50ML IVPB 100 ML IV ONE (22:29)
[2023-05-07] MEDS: fentaNYL INJECTION 100 MCG/2 ML VIAL IV PRN (22:32)
[2023-05-07] MEDS: 1/2 NS IV SOLUTION 1000 ML 1,000 ML IV SCH ×2 (22:40→22:54)
[2023-05-07] MEDS: POTASSIUM CL 10MEQ/50ML IVPB 50 ML IV SCH (23:00)
[2023-05-07 23:14] LABS: CALCIUM 8.1 MG/DL (8.5-10.1)
[2023-05-07 23:19] LABS: CREATININE SERUM 0.89 MG/DL (0.60-1.30)
[2023-05-08] MEDS: fentaNYL INJECTION 100 MCG/2 ML VIAL IV PRN ×6 (00:52→22:40)
[2023-05-08] MEDS: POTASSIUM CL 10MEQ/50ML IVPB 50 ML IV SCH ×11 (00:52→22:59)
[2023-05-08 01:14] LABS: POTASSIUM 3.7 MMOL/L (3.6-5.0)
[2023-05-08 01:15] LABS: CALCIUM 7.6 MG/DL (8.5-10.1)
[2023-05-08 01:19] LABS: CREATININE SERUM 0.85 MG/DL (0.60-1.30)
[2023-05-08 01:28] LABS: CLARITY,URINE CLEAR; COLOR,URINE YELLOW
[2023-05-08 01:29] LABS: GLUCOSE, URINE (UA) 2+ (NEGATIVE); PROTEIN,URINE 1+ (NEGATIVE)
[2023-05-08 01:30] LABS: BACTERIA,URINE MODERATE /HPF; BILIRUBIN,URINE 1+ (NEGATIVE); HYALINE CASTS, URINE RARE /LPF; KETONES,URINE 4+ (NEGATIVE); LEUKOCYTE ESTERASE ,URINE NEGATIVE (NEGATIVE); NITRITE,URINE NEGATIVE (NEGATIVE); RBC,URINE 25-50 /HPF
[2023-05-08] MEDS: D5 1/2 NS 1,000 ML IV 1,000 ML IV SCH ×6 (02:05→22:22)
[2023-05-08 03:41] LABS: POTASSIUM 3.6 MMOL/L (3.6-5.0)
[2023-05-08 03:43] LABS: CALCIUM 7.5 MG/DL (8.5-10.1)
[2023-05-08 03:47] LABS: CREATININE SERUM 0.79 MG/DL (0.60-1.30)
[2023-05-08 05:47] LABS: BASOPHILS % (AUTO) 1 % (0-10); EOSINOPHILS # (AUTO) 0.1 10^3/uL (0.0-0.3); EOSINOPHILS % (AUTO) 1 % (0-10); HEMATOCRIT 26 % (35-52); HEMOGLOBIN 8.2 g/dL (11.5-16.0); LYMPHOCYTES % (AUTO) 44 % (12-44); MEAN CORPUSCULAR HEMOGLOBIN 25 pg (25-34); MEAN CORPUSCULAR HGB CONC 31 g/dL (32-36); MEAN CORPUSCULAR VOLUME 82 fL (80-99); MEAN PLATELET VOLUME 9.7 fL (9.0-12.2); MONOCYTES # (AUTO) 0.6 10^3/uL (0.0-1.0); MONOCYTES % (AUTO) 8 % (0-12); NEUTROPHILS # (AUTO) 3.1 10^3/uL (1.8-7.8); NEUTROPHILS % (AUTO) 46 % (42-75); PLATELET COUNT 343 10^3/uL (130-400); WHITE BLOOD COUNT 6.9 10^3/uL (4.3-11.0)
[2023-05-08 05:56] LABS: ALBUMIN 2.6 GM/DL (3.2-4.5); POTASSIUM 3.2 MMOL/L (3.6-5.0)
[2023-05-08 05:57] LABS: CALCIUM 7.2 MG/DL (8.5-10.1)
[2023-05-08 05:58] LABS: TOTAL PROTEIN 5.1 GM/DL (6.4-8.2)
[2023-05-08 06:00] LABS: BILIRUBIN,TOTAL 0.3 MG/DL (0.1-1.0)
[2023-05-08 06:01] LABS: PHOSPHORUS 2.3 MG/DL (2.3-4.7)
[2023-05-08 06:02] LABS: CREATININE SERUM 0.76 MG/DL (0.60-1.30)
[2023-05-08 06:05] LABS: MAGNESIUM 1.5 MG/DL (1.6-2.4)
[2023-05-08] MEDS: 1/2 NS IV SOLUTION 1000 ML 1,000 ML IV SCH ×5 (06:13→22:15)
[2023-05-08] MEDS: PANTOPRAZOLE INJECTION 40 MG VIAL IV SCH (08:27)
--- NOTE | 2023-05-08 08:59 | Tele-ICU Progress Note ---
Subjective Date Seen by a Provider: May 08, 2023 Time Seen by a Provider: 08:55 Subjective/Events-last exam This virtual visit was conducted using real time audio/video. Thank you for asking us to see this patient for critical care services due to DKA Latest glu 219, HCO3 13, previous was 10, still on IV insulin @ 2.5 U H Pt awake and alert, not having any vomiting since yesterday Sepsis Event Evaluation Height, Weight, BMI Height: 5'9.00" Weight: 255lbs. 0oz. 115.270449bf; 28.83 BMI Method:Stated Focused Exam Lactate Level 05/07/23 20:05: Lactic Acid Level 5.81*H 05/07/23 22:24: Lactic Acid Level 1.02 Exam Exam Patient acknowledged, consented, and participated in this virtual visit which was conducted using real time audio/video Vital Signs Date Time Temp Pulse Resp B/P (MAP) Pulse Ox O2 Delivery O2 Flow Rate FiO2 05/08/23 08:00 88 28 107/61 (76) 98 Room Air 05/08/23 08:00 36.0 05/08/23 07:30 100 05/08/23 07:00 99 12 98/60 (73) 100 Room Air 05/08/23 06:00 80 14 95/50 (65) 100 Room Air 05/08/23 05:00 89 15 109/63 (78) 99 Room Air 05/08/23 04:00 104 18 111/58 (70) 98 Room Air 05/08/23 04:00 35.9 05/08/23 03:38 Room Air 05/08/23 03:00 102 15 124/71 (88) 100 Room Air 05/08/23 02:00 93 19 125/88 (95) 100 Room Air 05/08/23 01:00 108 27 124/83 (93) 100 Room Air 05/08/23 01:00 108 05/08/23 00:29 36.3 Room Air 05/08/23 00:00 97 36 143/88 (106) 100 Room Air 05/07/23 23:59 Room Air 05/07/23 23:10 Room Air 05/07/23 23:00 101 126/74 (87) 100 Room Air 05/07/23 22:45 106 126/65 (84) 100 Room Air 05/07/23 22:30 98 131/78 (96) 100 Room Air 05/07/23 22:15 93 20 126/74 (91) 100 Room Air 05/07/23 22:08 99 05/07/23 22:06 91 20 137/88 (100) 100 Room Air 05/07/23 22:00 91 118/73 100 Room Air 05/07/23 19:45 36.4 108 138/92 (107) 100 Room Air I & O 05/08/23 07:00 Intake Total 4230 ml Output Total 1900 ml Balance 2330 ml Height & Weight Height: 5'9.00" Weight: 255lbs. 0oz. 115.412933wm; 28.83 BMI Method:Stated General Appearance: No Apparent Distress, WD/WN, Other (QUIET, KEEPS EYES CLOSED) HEENT: PERRL/EOMI Neck: Normal Inspection Respiratory: Lungs Clear, Normal Breath Sounds, No Accessory Muscle Use, No Respiratory Distress Cardiovascular: Regular Rate, Rhythm, No Murmur Gastrointestinal: normal bowel sounds, non tender, soft Extremity: Normal Inspection Neurologic/Psychiatric: Alert, Oriented x3, No Motor/Sensory Deficits, oven drier tender II- XII Norm as Tested Skin: Normal Color, Warm/Dry Results Lab Laboratory Tests 05/07/23 20:05 05/07/23 22:49 05/08/23 01:00 05/08/23 03:26 05/08/23 05:37 Assessment/Plan Assessment/Plan DKA, frequent admission for same, will continue to follow DKA protocol Spoke with call center consultant: Critically Ill Patient Time spent with patient (mins): 25 VENANCIO MAYEN MD May 08, 2023 08:59
[2023-05-08 09:31] LABS: CALCIUM 7.1 MG/DL (8.5-10.1); CREATININE SERUM 0.76 MG/DL (0.60-1.30); POTASSIUM 3.3 MMOL/L (3.6-5.0)
[2023-05-08] MEDS ORDERED: ACETAMINOPHEN 500 MG TABLET PO PRN (10:15)
[2023-05-08] MEDS ORDERED: KETOROLAC INJ 30 MG/ML VIAL IVP PRN (10:15)
[2023-05-08] MEDS ORDERED: IBUPROFEN 600 MG TABLET PO PRN (10:15)
--- NOTE | 2023-05-08 12:12 | History & Physical ---
HOA JOHANSEN 05/08/23 1212: History of Present Illness History of Present Illness Reason for visit/HPI 22-year-old female with a history of T1DM and frequent DKA presented to the ED on 05/07 with chief complaint of light-headedness, dizziness, N/V. She reports that yesterday around 5:00, she began to feel light-headed, checked her blood sugar which was in the 400s and took 8 units of insulin. She rechecked her blood sugar approximately 2 hours later and it was in the 200s, but she still felt light-headed, dizzy, and started to have N/V, estimates 8-10 episodes of vomiting prior to admission, which lead her to present to the ED. She was found to be in DKA with a lactic acid of 5.81, a CO2 of 11 and an anion gap of 21. She was started on IVF and insulin. Her glucose elevated to 403 around midnight, but has since remained stable around 180-200, most recent at 170. Last measured CO2 was 14 and last measured anion gap was 11. She reports that she normally has a C GM and insulin pump, but she has had difficulties getting supplies and has not used either in approximately 4 months. She has been checking her glucose via fingerstick and using SQ insulin. Patient is seen sitting up in bed this morning, reports that she feels well overall, just having some full body muscle aches. Her N/V, and dizziness have resolved. No new complaints. Date of Admission May 07, 2023 at 21:55 Date Seen by a Provider: May 08, 2023 Time Seen by a Provider: 09:30 I consulted on this patient on 05/08/23 12:07 Attending Physician Colt Lyn DO Admitting Physician Admitting Physician: Jose Okeefe MD Attending Physician: Jose Okeefe MD Consult Allergies and Home Medications Allergies Coded Allergies: bismuth subsalicylate (Verified Allergy, Unknown, 08/29/22) latex (Unverified Allergy, Unknown, 01/09/23) Patient Home Medication List Acetaminophen (Tylenol Extra Strength) 500 Mg Tablet, 1,000 MG PO Q8H PRN for PAIN-MILD (1-4), (Reported) Entered as Reported by: COLT BOURNE on 02/28/23 1150 Last Action: Reviewed Bupropion HCl (Bupropion HCl) 75 Mg Tablet, 75 MG PO BID, (Reported) Entered as Reported by: COLT BOURNE on 02/28/23 1150 Last Action: Continued Ibuprofen (Ibuprofen) 200 Mg Tablet, 400 MG PO Q8H PRN for PAIN-MILD (1-4), (Reported) Entered as Reported by: COLT BOURNE on 01/10/23 1134 Last Action: Reviewed Insulin Lispro (Insulin Lispro) 100 Unit/Ml Vial, UNIT SQ AC, (Reported) Entered as Reported by: COLT BOURNE on 04/02/23 0943 Last Action: Reviewed Discontinued Medications Cephalexin (Cephalexin) 500 Mg Tablet, 500 MG PO TID Discontinued Reason: No Longer Taking Prescribed by: SANTI SOSA on 04/30/2333 Last Action: Discontinued Ondansetron (Ondansetron Odt) 4 Mg Tab.rapdis, 4 MG SL Q4H PRN for NAUSEA/VOMITING Discontinued Reason: No Longer Taking Prescribed by: SANTI SOSA on 04/30/2333 Last Action: Discontinued Syring W-Ndl,Disp,Insul,0.5 ml (Advocate Syringes) 30 Gauge X 5/16" Disp.syrin, EACH MC AC, (DME) Discontinued Reason: No Longer Taking Prescribed by: JOSIE SMYTH on 04/04/23 1147 Last Action: Discontinued Past Mkgnnyj-Auhnoa-Lmnivx Hx Patient Social History Tobacco Use?: No Smoking Status: Never a Smoker Use of E-Cig and/or Vaping dev: Yes E-Cig or Vaping type used: Nicotine Use of E-Cig and/or Vaping Tom: Current Everyday User Substance use?: No Substance type: Marijuana Substance frequency: Daily Alcohol Use?: No Pt feels they are or have been: No Immunizations Up To Date Date of Influenza Vaccine: Jul 25, 2022 First/Initial COVID19 Vaccinat: APR 2021 Second COVID19 Vaccination [place]: MAY 2021 Tetanus Booster (TDap): Unknown Hepatitis A: No Hepatitis B: No PED Vaccines UTD: Yes Seasonal Allergies Seasonal Allergies: No Current Status status: No status: No Advance Directives: No Communicates: Verbally Primary Language: Gibraltarian Preferred Spoken Language: Gibraltarian Is interpretation needed?: No Past Medical History Currently Using CPAP: No Currently Using BIPAP: No Palpitations Sexually Transmitted Disease: No HIV/AIDS: No Bladder Infection Diabetes, Insulin dep Loss of Vision: Denies Hearing Impairment: Denies Anxiety, Depression Blood Disorders: No Adverse Reaction/Blood Tranf: No PMHx: Type I DM Depression SurgHx: Denies Family Medical History No Pertinent Family Hx, Other Conditions/Hx DELIVERED 12/07/22--STILLBORN AT 29/30 WEEKS GESTATION. Review of Systems Constitutional: No chills, No fever EENTM: No hearing loss, No blurred vision Respiratory: No cough, No dyspnea on exertion Cardiovascular: No chest pain, No palpitations Gastrointestinal: nausea (resolved), vomiting (resolved) Genitourinary: No decreased output, No hematuria Musculoskeletal: No back pain; muscle pain (full body, slight) Skin: No change in color, No change in hair/nails Psychiatric/Neurological: Denies Numbness, Denies Weakness Physical Exam Vital Signs Vital Signs - First Documented 05/07/23 05/07/23 19:45 22:06 Temp 36.4 Pulse 108 Resp 20 B/P (MAP) 138/92 (107) Pulse Ox 100 O2 Delivery Room Air Capillary Refill : Height, Weight, BMI Height: 5'9.00" Weight: 255lbs. 0oz. 115.437663oq; 28.83 BMI Method:Stated General Appearance: No Apparent Distress, WD/WN HEENT: PERRL/EOMI Neck: Non Tender, Supple Respiratory: Chest Non Tender, Lungs Clear, Normal Breath Sounds Cardiovascular: Regular Rate, Rhythm, No Edema Gastrointestinal: Non Tender, Soft Rectal: Deferred Back: No Vertebral Tenderness Extremity: Normal Capillary Refill, Non Tender, No Pedal Edema Neurologic/Psychiatric: Alert, Oriented x3 Skin: Normal Color, Warm/Dry Lymphatic: No Adenopathy (cervical) Assessment/Plan Assessment and Plan DKA - currently on insulin drip. Acidosis improving. Continue IVF. Glucose checks hourly, labs drawn every four hours. Advancing diet today T1DM- same as above Hypokalemia - last measured at 3.2, start potassium replacement Anemia- 8.2 today, 10.4 at admission, most likely dilutional, continue to monitor N/V- resolved, zofran as needed Pain control - 50mcg fentanyl Q2H PRN, Ketorolac 30mg PRN, pain currently well- controlled JOSE OKEEFE MD 05/08/23 1823: Allergies and Home Medications Allergies Coded Allergies: bismuth subsalicylate (Verified Allergy, Unknown, 08/29/22) latex (Unverified Allergy, Unknown, 01/09/23) Patient Home Medication List Home Medication List Reviewed: Yes Acetaminophen (Tylenol Extra Strength) 500 Mg Tablet, 1,000 MG PO Q8H PRN for PAIN-MILD (1-4), (Reported) Entered as Reported by: COLT BOURNE on 02/28/23 115 Last Action: Reviewed Bupropion HCl (Bupropion HCl) 75 Mg Tablet, 75 MG PO BID, (Reported) Entered as Reported by: COLT BOURNE on 02/28/23 115 Last Action: Continued Ibuprofen (Ibuprofen) 200 Mg Tablet, 400 MG PO Q8H PRN for PAIN-MILD (1-4), (Reported) Entered as Reported by: COLT BOURNE on 01/10/23 1134 Last Action: Reviewed Insulin Lispro (Insulin Lispro) 100 Unit/Ml Vial, UNIT SQ AC, (Reported) Entered as Reported by: COLT BOURNE on 04/02/23 0943 Last Action: Reviewed Discontinued Medications Cephalexin (Cephalexin) 500 Mg Tablet, 500 MG PO TID Discontinued Reason: No Longer Taking Prescribed by: SANTI SOSA on 04/30/2333 Last Action: Discontinued Ondansetron (Ondansetron Odt) 4 Mg Tab.rapdis, 4 MG SL Q4H PRN for NAUSEA/VOMITING Discontinued Reason: No Longer Taking Prescribed by: SANTI SOSA on 04/30/2333 Last Action: Discontinued Syring W-Ndl,Disp,Insul,0.5 ml (Advocate Syringes) 30 Gauge X 5/16" Disp.syrin, EACH MC AC, (DME) Discontinued Reason: No Longer Taking Prescribed by: JOSIE SMYTH on 04/04/23 1147 Last Action: Discontinued Past Amxjvjc-Euivnp-Ovhluv Hx Patient Social History Living Status: Lives at home, independent with ADLs Review of Systems Constitutional: No chills, No fever; malaise EENTM: no symptoms reported; No mouth pain, No nose congestion, No throat pain, No throat swelling Respiratory: no symptoms reported; No cough, No dyspnea on exertion Cardiovascular: no symptoms reported; No chest pain, No palpitations Gastrointestinal: abdominal pain, loss of appetite, nausea (resolved), vomiting (resolved) Genitourinary: no symptoms reported : No Musculoskeletal: no symptoms reported Skin: no symptoms reported Psychiatric/Neurological: No Symptoms Reported Physical Exam General Appearance: No Apparent Distress, WD/WN HEENT: PERRL/EOMI Neck: Non Tender, Supple Respiratory: Chest Non Tender, Lungs Clear, Normal Breath Sounds Cardiovascular: Regular Rate, Rhythm, No Edema, No Murmur Gastrointestinal: Non Tender, Soft; No Distended, No Guarding Back: No CVA Tenderness, No Vertebral Tenderness Extremity: Normal Capillary Refill, Non Tender, No Calf Tenderness, No Pedal Edema Neurologic/Psychiatric: Alert, Oriented x3, mechanical facilities technician II-XII Norm as Tested Skin: Normal Color, Warm/Dry Lymphatic: No Adenopathy (cervical) Assessment/Plan Admission Diagnosis Admission Status: Inpatient Order (span 2 midnights) Reason for Inpatient Admission: Needing close ICU monitoring, high risk for decompensation Supervisory-Addendum Brief Verification & Attestation Participated in pt care: history, physical Personally performed: exam, history Care discussed with: Medical Student Procedures: n/a Verification and Attestation of Medical Student E/M Service A medical student performed and documented this service in my presence. I reviewed and verified all information documented by the medical student and made modifications to such information, when appropriate. I personally performed the physical exam and medical decision making. Jose Okeefe, May 08, 2023,18:20 Agree with above, in addition DKA Type 1 DM - Admit to ICU, insulin gtts, BMP q 4 hrs to monitor acidosis, will transition to subcutaneous once acidosis is resolved Normocyctic Anemia - At baseline, no signs of acute bleeding Hypokalemia - Replace per ICU protocol HOA JOHANSEN May 08, 2023 12:12 JOSE OKEEFE MD May 08, 2023 18:23
--- NOTE | 2023-05-08 18:25 | Progress Note ---
Standard Progress Note Progress Notes/Assess & Plan Date Seen by a Provider: May 08, 2023 Time Seen by a Provider: 18:24 Progress/Assessment & Plan c/o itching, getting worse, will give IV Benadryl 25 mg VENANCIO MAYEN MD May 08, 2023 18:25
[2023-05-08] MEDS ORDERED: diphenhydrAMINE INJ 50 MG/ML VIAL IVP NR (18:30)
[2023-05-08 18:47] LABS: POTASSIUM 4.1 MMOL/L (3.6-5.0)
[2023-05-08 18:48] LABS: CALCIUM 7.3 MG/DL (8.5-10.1)
[2023-05-08 18:53] LABS: CREATININE SERUM 0.7 MG/DL (0.60-1.30)
[2023-05-08] MEDS: buPROPion 75 MG TABLET PO SCH (20:00)
[2023-05-09] MEDS: diphenhydrAMINE 25 MG TABLET PO PRN (00:48)
[2023-05-09] MEDS: morphine INJ 4 MG/ML 1 ML (VIAL/SYRINGE) IVP PRN ×5 (00:52→23:19)
[2023-05-09] MEDS: POTASSIUM CL 10MEQ/50ML IVPB 50 ML IV SCH ×11 (00:58→21:13)
[2023-05-09 01:56] LABS: CALCIUM 7.4 MG/DL (8.5-10.1)
[2023-05-09 02:01] LABS: CREATININE SERUM 0.7 MG/DL (0.60-1.30)
[2023-05-09] MEDS: 1/2 NS IV SOLUTION 1000 ML 1,000 ML IV SCH ×6 (02:21→22:32)
[2023-05-09] MEDS: D5 1/2 NS 1,000 ML IV 1,000 ML IV SCH ×5 (02:31→19:03)
[2023-05-09 04:49] LABS: BASOPHILS % (AUTO) 0 % (0-10); EOSINOPHILS # (AUTO) 0.1 10^3/uL (0.0-0.3); EOSINOPHILS % (AUTO) 3 % (0-10); HEMATOCRIT 28 % (35-52); HEMOGLOBIN 8.7 g/dL (11.5-16.0); LYMPHOCYTES # (AUTO) 2.5 10^3/uL (1.0-4.0); LYMPHOCYTES % (AUTO) 54 % (12-44); MEAN CORPUSCULAR HEMOGLOBIN 26 pg (25-34); MEAN CORPUSCULAR HGB CONC 31 g/dL (32-36); MEAN CORPUSCULAR VOLUME 82 fL (80-99); MEAN PLATELET VOLUME 9.8 fL (9.0-12.2); MONOCYTES # (AUTO) 0.4 10^3/uL (0.0-1.0); MONOCYTES % (AUTO) 9 % (0-12); NEUTROPHILS # (AUTO) 1.6 10^3/uL (1.8-7.8); NEUTROPHILS % (AUTO) 34 % (42-75); PLATELET COUNT 329 10^3/uL (130-400); WHITE BLOOD COUNT 4.7 10^3/uL (4.3-11.0)
[2023-05-09 04:58] LABS: ALBUMIN 2.5 GM/DL (3.2-4.5); POTASSIUM 3.9 MMOL/L (3.6-5.0)
[2023-05-09 04:59] LABS: CALCIUM 7.2 MG/DL (8.5-10.1)
[2023-05-09 05:00] LABS: TOTAL PROTEIN 4.9 GM/DL (6.4-8.2)
[2023-05-09 05:02] LABS: BILIRUBIN,TOTAL 0.2 MG/DL (0.1-1.0)
[2023-05-09 05:04] LABS: CREATININE SERUM 0.66 MG/DL (0.60-1.30); PHOSPHORUS 2.2 MG/DL (2.3-4.7)
[2023-05-09 05:07] LABS: MAGNESIUM 1.7 MG/DL (1.6-2.4)
[2023-05-09] MEDS ORDERED: NS IV 500 ML 500 ML IV PRN (05:30)
[2023-05-09] MEDS ORDERED: POTASSIUM CHLORIDE 20 MEQ TABLET PO ONE (05:30)
[2023-05-09] MEDS: MAGNESIUM 1 GM/100 ML IVPB 100 ML IV SCH ×5 (05:57→07:52)
[2023-05-09] MEDS: POTASSIUM CHLORIDE 20 MEQ TABLET PO SCH (06:03)
[2023-05-09] MEDS ORDERED: POTASSIUM CL 10MEQ/50ML IVPB 100 ML IV ONE (06:13)
--- NOTE | 2023-05-09 07:59 | Tele-ICU Progress Note ---
Subjective Date Seen by a Provider: May 09, 2023 Time Seen by a Provider: 07:56 Subjective/Events-last exam (Tele-ICU Physician , Progress Note ) Service provided via interactive audio and video telecommunications E-CARE system to a patient admitted to ICU bed in [facility]. Patient is seen today due to persistent need of ICU care Available chart/ vitals / labs / Images reviewed Video assessment done using teleICU camera, rest of exam as per RN Discussed with RN glucose at 8 am 90, HCO3 has improved to 20, renal function normal, eating, no nausea, vomiting Still on IV insulin at 2.5 units/h, awaiting latest BMP Home insulin dose is Lantus 25 bid and humalog after meals Sepsis Event Evaluation Height, Weight, BMI Height: 5'9.00" Weight: 255lbs. 0oz. 115.366775uv; 32.15 BMI Method:Stated Focused Exam Lactate Level 05/07/23 20:05: Lactic Acid Level 5.81*H 05/07/23 22:24: Lactic Acid Level 1.02 Exam Exam Patient acknowledged, consented, and participated in this virtual visit which was conducted using real time audio/video Vital Signs Date Time Temp Pulse Resp B/P (MAP) Pulse Ox O2 Delivery O2 Flow Rate FiO2 05/09/23 07:44 108 05/09/23 06:00 83 28 106/63 (77) 99 Room Air 05/09/23 05:00 83 13 104/70 (81) 99 Room Air 05/09/23 04:06 100 Room Air 05/09/23 04:00 98 15 117/75 (89) 99 Room Air 05/09/23 03:07 103 16 116/74 (88) 99 Room Air 05/09/23 02:00 120 17 129/70 (89) 100 Room Air 05/09/23 01:37 115 18 123/74 (86) 99 Room Air 05/09/23 01:00 93 05/09/23 00:05 100 Room Air 05/09/23 00:00 36.4 05/09/23 00:00 105 123/78 (93) 100 Room Air 05/08/23 23:00 92 17 118/78 (91) 100 Room Air 05/08/23 22:00 89 115/70 (84) 100 Room Air 05/08/23 21:00 101 118/91 (103) 100 Room Air 05/08/23 20:05 100 Room Air 05/08/23 20:00 36.2 89 21 122/80 (94) 100 Room Air 05/08/23 19:00 94 05/08/23 19:00 90 29 132/92 (105) 100 Room Air 05/08/23 18:00 98 25 120/88 (99) 100 Room Air 05/08/23 17:00 87 30 109/68 (82) 100 Room Air 05/08/23 16:00 97 13 112/69 (83) 99 Room Air 05/08/23 16:00 Room Air 05/08/23 15:00 102 30 111/81 (91) 100 Room Air 05/08/23 14:00 88 17 116/73 (87) 100 Room Air 05/08/23 13:00 104 17 122/80 (94) 100 Room Air 05/08/23 12:02 89 05/08/23 12:00 Room Air 05/08/23 12:00 91 13 117/72 (87) 99 Room Air 05/08/23 12:00 35.9 05/08/23 11:00 105 22 99/47 (64) 99 Room Air 05/08/23 10:00 92 14 129/94 (106) 100 Room Air 05/08/23 09:00 98 10 126/88 (101) 100 Room Air 05/08/23 08:00 88 28 107/61 (76) 98 Room Air 05/08/23 08:00 36.0 05/08/23 08:00 Room Air I & O 05/09/23 07:00 Intake Total 5575 ml Output Total 2650 ml Balance 2925 ml Height & Weight Height: 5'9.00" Weight: 255lbs. 0oz. 115.042185ug; 32.15 BMI Method:Stated General Appearance: No Apparent Distress, WD/WN HEENT: PERRL/EOMI Neck: Non Tender, Supple Respiratory: Chest Non Tender, Lungs Clear, Normal Breath Sounds Cardiovascular: Regular Rate, Rhythm, No Edema, No Murmur Gastrointestinal: normal bowel sounds, non tender, soft Extremity: Normal Capillary Refill, Non Tender, No Calf Tenderness, No Pedal Edema Neurologic/Psychiatric: Alert, Oriented x3, insurance salesperson II-XII Norm as Tested Skin: Normal Color, Warm/Dry Lymphatic: No Adenopathy (cervical) Results Lab Laboratory Tests 05/07/23 20:05 05/07/23 22:49 05/08/23 01:00 05/08/23 03:26 05/08/23 05:37 05/08/23 09:09 05/08/23 17:35 05/09/23 01:35 05/09/23 04:30 Assessment/Plan Assessment/Plan DKA resolved, will go back to regular insulin dose, Lantus 25 U bid and humalog after meals Follow up by consulting networking engineer in [facility] Critical Care: Critically Ill Patient Time spent with patient (mins): 25 VENANCIO MAYEN MD May 09, 2023 07:59
[2023-05-09] MEDS: buPROPion 75 MG TABLET PO SCH ×2 (08:52→21:12)
[2023-05-09] MEDS: PANTOPRAZOLE INJECTION 40 MG VIAL IV SCH (08:52)
[2023-05-09] MEDS: fentaNYL INJECTION 100 MCG/2 ML VIAL IV PRN ×4 (09:00→18:38)
[2023-05-09 09:44] LABS: CALCIUM 7.1 MG/DL (8.5-10.1); CREATININE SERUM 0.68 MG/DL (0.60-1.30)
--- NOTE | 2023-05-09 12:56 | Progress Note ---
HOA JOHANSEN 05/09/23 1256: Subjective Date Seen by a Provider: May 09, 2023 Time Seen by a Provider: 09:45 Subjective/Events-last exam Patient seen laying awake in bed. States she is still having full-body muscle aches, pain well-controlled. Started on solid foods yesterday, tolerated it well. CO2 improved to 20 this morning, anion gap at 6. Glucose has remained stable. Moving down to fourth floor today. Review of Systems General: No Chills, No Night Sweats HEENT: No Head Aches, No Visual Changes Pulmonary: No Dyspnea, No Cough Cardiovascular: No: Chest Pain, Palpitations Gastrointestinal: No: Nausea, Vomiting Genitourinary: No Dysuria, No Hematuria Musculoskeletal: No: neck pain, back pain Neurological: No: Weakness, Numbness Focused Exam Lactate Level 05/07/23 20:05: Lactic Acid Level 5.81*H 05/07/23 22:24: Lactic Acid Level 1.02 Objective Exam Last Set of Vital Signs Vital Signs Date Time Temp Pulse Resp B/P (MAP) Pulse Ox O2 Delivery O2 Flow Rate FiO2 05/09/23 12:00 96 13 124/82 (96) 100 Room Air 05/09/23 00:00 36.4 Capillary Refill : I&O Intake and Output 05/09/23 00:00 Intake Total 5805 ml Output Total 3450 ml Balance 2355 ml Intake Oral 3555 ml IV Total 2250 ml Output Urine Total 3450 ml General: Alert, Oriented X3 HEENT: Atraumatic Neck: Supple Lungs: Clear to Auscultation Abdomen: Normal Bowel Sounds, Soft Extremities: No Clubbing, No Cyanosis Skin: No Rashes, No Breakdown Neuro: Normal Speech Psych/Mental Status: Mental Status NL Results Lab Laboratory Tests 05/08/23 13:36: Glucometer 206H 05/08/23 14:42: Glucometer 191H 05/08/23 15:50: Glucometer 205H 05/08/23 16:48: Glucometer 184H 05/08/23 17:35: Sodium Level 139, Potassium Level 4.1, Chloride Level 112H, Carbon Dioxide Level 12L, Anion Gap 15H, Blood Urea Nitrogen 3L, Creatinine 0.70, Estimat Glomerular Filtration Rate 127, BUN/Creatinine Ratio 4, Glucose Level 174H, Calcium Level 7.3L 05/08/23 17:37: Glucometer 185H 05/08/23 18:28: Glucometer 181H 05/08/23 19:29: Glucometer 182H 05/08/23 20:47: Glucometer 135H 05/08/23 21:37: Glucometer 193H 05/08/23 22:38: Glucometer 172H 05/08/23 23:38: Glucometer 187H 05/09/23 00:45: Glucometer 162H 05/09/23 01:35: Sodium Level 140, Potassium Level 4.0, Chloride Level 114H, Carbon Dioxide Level 17L, Anion Gap 9, Blood Urea Nitrogen 3L, Creatinine 0.70, Estimat Glomerular Filtration Rate 127, BUN/Creatinine Ratio 4, Glucose Level 125H, Calcium Level 7.4L 05/09/23 01:38: Glucometer 140H 05/09/23 02:33: Glucometer 142H 05/09/23 03:35: Glucometer 89 05/09/23 04:30: White Blood Count 4.7, Red Blood Count 3.37L, Hemoglobin 8.7L, Hematocrit 28L, Mean Corpuscular Volume 82, Mean Corpuscular Hemoglobin 26, Mean Corpuscular Hemoglobin Concent 31L, Red Cell Distribution Width 21.4H, Platelet Count 329, Mean Platelet Volume 9.8, Immature Granulocyte % (Auto) 0, Neutrophils (%) (Auto) 34L, Lymphocytes (%) (Auto) 54H, Monocytes (%) (Auto) 9, Eosinophils (%) (Auto) 3, Basophils (%) (Auto) 0, Neutrophils # (Auto) 1.6L, Lymphocytes # (Auto) 2.5, Monocytes # (Auto) 0.4, Eosinophils # (Auto) 0.1, Basophils # (Auto) 0.0, Immature Granulocyte # (Auto) 0.0, Sodium Level 139, Potassium Level 3.9, Chloride Level 113H, Carbon Dioxide Level 20L, Anion Gap 6, Blood Urea Nitrogen 3L, Creatinine 0.66, Estimat Glomerular Filtration Rate 129, BUN/Creatinine Ratio 5, Glucose Level 113H, Calcium Level 7.2L, Corrected Calcium 8.4L, Phosphorus Level 2.2L, Magnesium Level 1.7, Total Bilirubin 0.2, Aspartate Amino Transf (AST/SGOT) 34, Alanine Aminotransferase (ALT/SGPT) 20, Alkaline Phosphatase 178H, Total Protein 4.9L, Albumin 2.5L, Beta-Hydroxybutyrate (Chem panel) 0.12 05/09/23 04:33: Glucometer 113H 05/09/23 05:51: Glucometer 93 05/09/23 06:26: Glucometer 82 05/09/23 07:29: Glucometer 90 05/09/23 08:49: Glucometer 156H 05/09/23 09:10: Sodium Level 137, Potassium Level 4.0, Chloride Level 112H, Carbon Dioxide Level 17L, Anion Gap 8, Blood Urea Nitrogen 3L, Creatinine 0.68, Estimat Glomerular F iltration Rate 128, BUN/Creatinine Ratio 4, Glucose Level 156H, Calcium Level 7.1L 05/09/23 09:40: Glucometer 173H 05/09/23 10:45: Glucometer 171H 05/09/23 11:38: Glucometer 152H 05/09/23 12:33: Glucometer 155H Microbiology 05/08/23 Urine Culture - Preliminary, Resulted Strep, Beta Hemolytic Group B 05/07/23 MRSA Screen - Final, Complete MRSA not isolated Assessment/Plan Assessment/Plan Assess & Plan/Chief Complaint DKA - currently on insulin drip. Acidosis improving. Transition from drip to subQ insulin. Continue IVF, encourage PO hydration. Tolerated advancing diet well. Continue to monitor glucose and BMP T1DM- same as above Hypokalemia - Measured at 3.2 yesterday, resolved today, replace as needed Anemia- Most likely dilutional, normocytic, improved from 8.2 yesterday to 8.7 today, continue to monitor N/V- resolved, zofran as needed Pain control - 50mcg fentanyl Q2H PRN, Ketorolac 30mg PRN, pain currently well- controlled Clinical Quality Measures Admission Status Admission Dx DKA - currently on insulin drip. Acidosis improving. Continue IVF. Glucose checks hourly, labs drawn every four hours. Advancing diet today T1DM- same as above Hypokalemia - last measured at 3.2, start potassium replacement Anemia- 8.2 today, 10.4 at admission, most likely dilutional, continue to monitor N/V- resolved, zofran as needed Pain control - 50mcg fentanyl Q2H PRN, Ketorolac 30mg PRN, pain currently well- controlled SIMI ESPOSITO MD 05/09/23 1734: Supervisory-Addendum Brief Verification & Attestation Participated in pt care: history, physical Personally performed: exam, history Care discussed with: Medical Student Procedures: n/a Verification and Attestation of Medical Student E/M Service A medical student performed and documented this service in my presence. I reviewed and verified all information documented by the medical student and made modifications to such information, when appropriate. I personally performed the physical exam and medical decision making. Simi Esposito, May 09, 2023,17:33 Agree with above, in addition DKA Type 1 DM - Admit to ICU, insulin gtts, BMP q 4 hrs to monitor acidosis, will transition to subcutaneous once acidosis is resolved 05/09: Will transition in AM to subcutaneous insulin Normocyctic Anemia - At baseline, no signs of acute bleeding Hypokalemia - Replace per ICU protocol HOA JOHANSEN May 09, 2023 12:56 SIMI ESPOSITO MD May 09, 2023 17:34
[2023-05-09 18:03] LABS: POTASSIUM 4.8 MMOL/L (3.6-5.0)
[2023-05-09 18:04] LABS: CALCIUM 7.6 MG/DL (8.5-10.1)
[2023-05-09 18:08] LABS: CREATININE SERUM 0.65 MG/DL (0.60-1.30)
[2023-05-09] MEDS ORDERED: inSUlin DETERMIR 1 UNIT/0.01 ML (CHARGE PER UNIT) SQ NR (19:30)
[2023-05-09] MEDS: inSUlin ASPART 1 UNIT/0.01 ML (PER UNIT) SC SCH (21:31)
[2023-05-10] MEDS: diphenhydrAMINE 25 MG TABLET PO PRN ×2 (01:28→18:33)
[2023-05-10] MEDS: 1/2 NS IV SOLUTION 1000 ML 1,000 ML IV SCH ×3 (02:29→11:02)
[2023-05-10 03:50] LABS: BASOPHILS % (AUTO) 1 % (0-10); EOSINOPHILS # (AUTO) 0.1 10^3/uL (0.0-0.3); EOSINOPHILS % (AUTO) 2 % (0-10); HEMATOCRIT 29 % (35-52); HEMOGLOBIN 9.2 g/dL (11.5-16.0); LYMPHOCYTES # (AUTO) 2.4 10^3/uL (1.0-4.0); LYMPHOCYTES % (AUTO) 58 % (12-44); MEAN CORPUSCULAR HEMOGLOBIN 26 pg (25-34); MEAN CORPUSCULAR HGB CONC 31 g/dL (32-36); MEAN CORPUSCULAR VOLUME 83 fL (80-99); MEAN PLATELET VOLUME 9.9 fL (9.0-12.2); MONOCYTES # (AUTO) 0.4 10^3/uL (0.0-1.0); MONOCYTES % (AUTO) 10 % (0-12); NEUTROPHILS # (AUTO) 1.3 10^3/uL (1.8-7.8); NEUTROPHILS % (AUTO) 30 % (42-75); PLATELET COUNT 319 10^3/uL (130-400); WHITE BLOOD COUNT 4.2 10^3/uL (4.3-11.0)
[2023-05-10 04:28] LABS: ALBUMIN 2.7 GM/DL (3.2-4.5); BILIRUBIN,TOTAL 0.2 MG/DL (0.1-1.0); CREATININE SERUM 0.63 MG/DL (0.60-1.30); PHOSPHORUS 3.1 MG/DL (2.3-4.7); POTASSIUM 4.1 MMOL/L (3.6-5.0); TOTAL PROTEIN 5.2 GM/DL (6.4-8.2)
[2023-05-10] MEDS: MAGNESIUM 1 GM/100 ML IVPB 100 ML IV SCH (04:39)
[2023-05-10] MEDS: POTASSIUM CHLORIDE 20 MEQ TABLET PO SCH (04:39)
[2023-05-10] MEDS: inSUlin ASPART 1 UNIT/0.01 ML (PER UNIT) SC SCH ×4 (04:48→21:01)
[2023-05-10] MEDS: fentaNYL INJECTION 100 MCG/2 ML VIAL IV PRN ×3 (05:38→23:21)
[2023-05-10] MEDS: buPROPion 75 MG TABLET PO SCH ×2 (08:10→21:42)
[2023-05-10] MEDS: PANTOPRAZOLE INJECTION 40 MG VIAL IV SCH (08:10)
[2023-05-10] MEDS: inSUlin DETERMIR 1 UNIT/0.01 ML (CHARGE PER UNIT) SQ SCH ×2 (08:11→21:42)
--- NOTE | 2023-05-10 11:31 | Progress Note ---
HOA JOHANSEN 05/10/23 1131: Subjective Date Seen by a Provider: May 10, 2023 Time Seen by a Provider: 09:30 Subjective/Events-last exam Patient initially seen sleeping in bed, easily aroused. She reports that she is still having full-body aches, but pain is well-controlled. Currently on normal diet, has been tolerating well. Taken off insulin drip and started on subQ insulin yesterday, one episode of hypoglycemia measured at 45, but otherwise has been stable. CO2 today measured at 24, anion gap at 7. Patient has no new complaints Review of Systems General: No Chills, No Night Sweats HEENT: No Visual Changes, No Eye Pain Pulmonary: No Dyspnea, No Cough Cardiovascular: No: Chest Pain, Palpitations Gastrointestinal: No: Nausea, Vomiting Genitourinary: No Dysuria, No Hematuria Musculoskeletal: No: neck pain, back pain Neurological: No: Weakness, Numbness Focused Exam Lactate Level 05/07/23 20:05: Lactic Acid Level 5.81*H 05/07/23 22:24: Lactic Acid Level 1.02 Objective Exam Last Set of Vital Signs Vital Signs Date Time Temp Pulse Resp B/P (MAP) Pulse Ox O2 Delivery O2 Flow Rate FiO2 05/10/23 09:00 85 18 121/81 (94) 99 Room Air 05/10/23 08:33 36.4 Capillary Refill : I&O Intake and Output 05/09/23 23:59 Intake Total 6200 ml Output Total 4050 ml Balance 2150 ml Intake Oral 3800 ml IV Total 2400 ml Output Urine Total 4050 ml # Bowel Movements 1 General: Alert, Oriented X3 HEENT: Atraumatic Neck: Supple Lungs: Clear to Auscultation Heart: Regular Rate Abdomen: Normal Bowel Sounds, Soft Extremities: No Clubbing, No Cyanosis Skin: No Rashes, No Breakdown Neuro: Normal Speech Psych/Mental Status: Mental Status NL Results Lab Laboratory Tests 05/09/23 11:38: Glucometer 152H 05/09/23 12:33: Glucometer 155H 05/09/23 13:29: Glucometer 193H 05/09/23 14:43: Glucometer 216H 05/09/23 15:57: Glucometer 162H 05/09/23 16:50: Glucometer 169H 05/09/23 17:30: Sodium Level 137, Potassium Level 4.8, Chloride Level 110H, Carbon Dioxide Level 18L, Anion Gap 9, Blood Urea Nitrogen 4L, Creatinine 0.65, Estimat Glomerular Filtration Rate 129, BUN/Creatinine Ratio 6, Glucose Level 168H, Calcium Level 7.6L 05/09/23 17:35: Glucometer 172H 05/09/23 18:42: Glucometer 182H 05/09/23 21:17: Glucometer 170H 05/10/23 03:40: White Blood Count 4.2L, Red Blood Count 3.55L, Hemoglobin 9.2L, Hematocrit 29L, Mean Corpuscular Volume 83, Mean Corpuscular Hemoglobin 26, Mean Corpuscular Hemoglobin Concent 31L, Red Cell Distribution Width 21.4H, Platelet Count 319, Mean Platelet Volume 9.9, Immature Granulocyte % (Auto) 0, Neutrophils (%) (Aut o) 30L, Lymphocytes (%) (Auto) 58H, Monocytes (%) (Auto) 10, Eosinophils (%) (Auto) 2, Basophils (%) (Auto) 1, Neutrophils # (Auto) 1.3L, Lymphocytes # (Auto) 2.4, Monocytes # (Auto) 0.4, Eosinophils # (Auto) 0.1, Basophils # (Auto) 0.0, Immature Granulocyte # (Auto) 0.0, Sodium Level 143, Potassium Level 4.1, Chloride Level 112H, Carbon Dioxide Level 24, Anion Gap 7, Blood Urea Nitrogen 6L, Creatinine 0.63, Estimat Glomerular Filtration Rate 130, BUN/Creatinine Ratio 10, Glucose Level 45*L, Calcium Level 8.0L, Corrected Calcium 9.0, Phosphorus Level 3.1, Magnesium Level 2.0, Total Bilirubin 0.2, Aspartate Amino Transf (AST/SGOT) 66H, Alanine Aminotransferase (ALT/SGPT) 30, Alkaline Phosphatase 182H, Total Protein 5.2L, Albumin 2.7L, Beta-Hydroxybutyrate (Chem panel) 0.11 05/10/23 05:16: Glucometer 122H 05/10/23 07:46: Glucometer 159H 05/10/23 10:24: Glucometer 230H Microbiology 05/08/23 Urine Culture - Final, Complete Strep, Beta Hemolytic Group B No Susceptibility Performed 3 or more isolates See Comments 05/07/23 MRSA Screen - Final, Complete MRSA not isolated Assessment/Plan Assessment/Plan Assess & Plan/Chief Complaint DKA - Taken off insulin drip and transitioned subQ insulin, tolerating this well. Acidosis resolved. Continue IVF, encourage PO hydration. Tolerating normal diet. Continue to monitor glucose and BMP T1DM- same as above Hypokalemia - Resolved, replace as needed Anemia- Most likely dilutional, normocytic, improved from 8.7 yesterday to 9.2 today, continue to monitor N/V- resolved, zofran as needed Pain control - 50mcg fentanyl Q2H PRN, Ketorolac 30mg PRN, pain currently well- controlled Clinical Quality Measures Admission Status Admission Dx DKA - currently on insulin drip. Acidosis improving. Continue IVF. Glucose checks hourly, labs drawn every four hours. Advancing diet today T1DM- same as above Hypokalemia - last measured at 3.2, start potassium replacement Anemia- 8.2 today, 10.4 at admission, most likely dilutional, continue to monitor N/V- resolved, zofran as needed Pain control - 50mcg fentanyl Q2H PRN, Ketorolac 30mg PRN, pain currently well- controlled SIMI ESPOSITO MD 05/10/23 1433: Supervisory-Addendum Brief Verification & Attestation Participated in pt care: history, physical Personally performed: exam, history Care discussed with: Medical Student Procedures: n/a Verification and Attestation of Medical Student E/M Service A medical student performed and documented this service in my presence. I reviewed and verified all information documented by the medical student and made modifications to such information, when appropriate. I personally performed the physical exam and medical decision making. Simi Esposito, May 10, 2023,14:33 HOA JOHANSEN May 10, 2023 11:31 SIMI ESPOSITO MD May 10, 2023 14:33
[2023-05-10 13:50] VITALS: BP 124/76
[2023-05-10] MEDS: morphine INJ 4 MG/ML 1 ML (VIAL/SYRINGE) IVP PRN ×2 (14:16→17:43)
[2023-05-10 15:40] VITALS: BP 129/81
[2023-05-10 19:32] VITALS: BP 138/88
[2023-05-10 23:32] VITALS: BP 146/89
[2023-05-11] MEDS: diphenhydrAMINE 25 MG TABLET PO PRN (01:44)
[2023-05-11 03:03] VITALS: BP 132/82
[2023-05-11] MEDS: fentaNYL INJECTION 100 MCG/2 ML VIAL IV PRN ×2 (03:09→08:56)
[2023-05-11 05:10] LABS: BASOPHILS % (AUTO) 1 % (0-10); EOSINOPHILS # (AUTO) 0.1 10^3/uL (0.0-0.3); EOSINOPHILS % (AUTO) 3 % (0-10); HEMATOCRIT 28 % (35-52); HEMOGLOBIN 8.6 g/dL (11.5-16.0); LYMPHOCYTES # (AUTO) 2.9 10^3/uL (1.0-4.0); LYMPHOCYTES % (AUTO) 58 % (12-44); MEAN CORPUSCULAR HEMOGLOBIN 26 pg (25-34); MEAN CORPUSCULAR HGB CONC 31 g/dL (32-36); MEAN CORPUSCULAR VOLUME 82 fL (80-99); MONOCYTES # (AUTO) 0.5 10^3/uL (0.0-1.0); MONOCYTES % (AUTO) 9 % (0-12); NEUTROPHILS # (AUTO) 1.5 10^3/uL (1.8-7.8); NEUTROPHILS % (AUTO) 30 % (42-75); PLATELET COUNT 315 10^3/uL (130-400); WHITE BLOOD COUNT 5.1 10^3/uL (4.3-11.0)
[2023-05-11] MEDS: inSUlin ASPART 1 UNIT/0.01 ML (PER UNIT) SC SCH (05:10)
[2023-05-11 05:29] LABS: ALBUMIN 2.6 GM/DL (3.2-4.5); BILIRUBIN,TOTAL 0.2 MG/DL (0.1-1.0); CALCIUM 8.2 MG/DL (8.5-10.1); CREATININE SERUM 0.73 MG/DL (0.60-1.30); MAGNESIUM 1.6 MG/DL (1.6-2.4); PHOSPHORUS 5.8 MG/DL (2.3-4.7); POTASSIUM 3.9 MMOL/L (3.6-5.0)
[2023-05-11 08:22] VITALS: BP 116/73
[2023-05-11] MEDS: PANTOPRAZOLE INJECTION 40 MG VIAL IV SCH (08:56)
[2023-05-11] MEDS: inSUlin DETERMIR 1 UNIT/0.01 ML (CHARGE PER UNIT) SQ SCH (08:56)
[2023-05-11] MEDS: buPROPion 75 MG TABLET PO SCH (08:56)
--- NOTE | 2023-05-11 10:56 | Discharge Summary ---
Diagnosis/Chief Complaint Date of Admission May 07, 2023 at 21:55 Date of Discharge 05/11/23 Admission Diagnosis Admission Diagnosis DKA Type I DM Discharge Diagnosis See above Discharge Summary-Simple/Stand Discharge Physical Examination Allergies: Coded Allergies: bismuth subsalicylate (Verified Allergy, Unknown, 08/29/22) latex (Unverified Allergy, Unknown, 01/09/23) Vitals & I&Os Vital Sign - Last 12Hours Date Time Temp Pulse Resp B/P (MAP) Pulse Ox O2 Delivery O2 Flow Rate FiO2 05/11/23 08:22 36.2 77 20 116/73 (87) 97 Room Air Intake and Output 05/11/23 00:00 Intake Total 1650 ml Output Total 550 ml Balance 1100 ml General Appearance: Alert, Oriented X3, No Acute Distress Respiratory: Clear to Auscultation, Normal Air Movement Cardiovascular: Regular Rate, No Murmurs Abdominal: Normal Bowel Sounds, Soft, No Tenderness, No Masses Extremities: No Edema, No Tenderness/Swelling Neuro: Normal Speech, Cranial Nerves 3-12 NL Psych/Mental Status: Mental Status NL, Mood NL Hospital Course See final discharge diagnosis. Discharge Condition at discharge stable Instructions to patient/family Please see electronic discharge instructions given to patient. Discharge Medications Reviewed and agree with Discharge Medication list on patient's Discharge Instruction sheet JOSE OKEEFE MD May 11, 2023 10:56
[2023-05-11] MEDS ORDERED: INSU100V5 SQ (10:59)
--- NOTE | 2023-05-11 11:14 | Discharge Summary ---
Discharge [facility] Discharge Medications New, Converted or Re-Newed RX: Transmitted to Pharmacy New Medications: Insulin Determir (Levemir) 100 Unit/Ml Soln 25 UNIT SQ BID, #1 EA Continued Medications: Acetaminophen (Tylenol Extra Strength) 500 Mg Tablet 1000 MG PO Q8H PRN for PAIN-MILD (1-4), TAB Bupropion HCl (Bupropion HCl) 75 Mg Tablet 75 MG PO BID, TAB Ibuprofen (Ibuprofen) 200 Mg Tablet 400 MG PO Q8H PRN for PAIN-MILD (1-4), TAB Insulin Lispro (Insulin Lispro) 100 Unit/Ml Vial UNIT SQ AC, EA USES PER SLIDING SCALE Patient Instructions Goal/Follow Up Appt: F.u [address] Lyn Activity & Diet Discharge Diet: ADA Diet Activity as Tolerated: JOSE Taylor MD May 11, 2023 11:14
[2023-05-11 11:53] VITALS: BP 124/85
== END 2023-05-11 14:30 | disposition home or self-care (01) | DRG 639 ==
LOC: EDUNIT# 19:38 → ER 19:40 → ICU 21:55 → 4TH 05-10 13:51
PROVIDERS: ADMIT Family Medicine; ATTEND Family Medicine
DX: E10.10 Type 1 diabetes mellitus with ketoacidosis without coma (principal); E10.649 Type 1 diabetes mellitus with hypoglycemia without coma; E87.6 Hypokalemia; D64.9 Anemia, unspecified; F17.290 Nicotine dependence, other tobacco product, uncomplicated; F41.9 Anxiety disorder, unspecified; F32.A Depression, unspecified; Z20.822 Contact with and (suspected) exposure to COVID-19; Z91.09 Other allergy status, other than to drugs and biological substances; Z79.899 Other long term (current) drug therapy; Z79.1 Long term (current) use of non-steroidal anti-inflammatories (NSAID)
CPT/HCPCS: 36415; 80048; 80053; 80306; 80320; 81000; 82010; 82150; 82805; 82947; 83036; 83605; 83690; 83735; 84100; 84703; 85025; 87081; 87088; 87636; 93041

== ENCOUNTER 2023-05-16 01:20 | Inpatient (IN) | payer BC, MEDICAID ==
[~2023-05-16] VITALS: Ht 175.2 cm; Wt 88.9 kg
[~2023-05-16 01:20] MED LIST changes: -INSU100V39 SC; -INSU100V39 SQ; +INSU100V45 SC; +INSU100V45 SQ; +INSU100V5 SQ
[2023-05-16] MEDS ORDERED: ONDANSETRON INJECTION 4 MG/2 ML (SDV) IVP ONE ×2 (01:45→02:45)
[2023-05-16] MEDS ORDERED: NS IV 1000 ML 1,000 ML IV SCH ×3 (01:45→06:30)
--- NOTE | 2023-05-16 01:57 | ED General ---
General Stated Complaint: HIGH BLOOD SUGAR/VOMITING Source of Information: Patient, Old Records History of Present Illness Date Seen by Provider: May 16, 2023 Time Seen by Provider: 01:32 Initial Comments PT ARRIVES VIA POV FROM HOME PT HAS NOT FELT WELL ALL DAY SHE HAS HAD NAUSEA AND VOMITING SINCE 10 AM TODAY HER BLOOD SUGARS HAVE BEEN IN THE 100'S ALL DAY, UNTIL 0100--WAS 344 AT THAT TIME SHE TOOK A ZOFRAN AT 2030 TONIGHT, NO RELIEF C/O URINARY FREQUENCY--STATES SHE IS URINATING "NON-STOP" ALL DAY NO FEVER C/O BODY ACHES C/O GENERALIZED ABDOMINAL PAIN C/O GENERALIZED BACK PAIN PT WITH TYPE 1 DIABETES, WITH LONG HISTORY OF NON-COMPLIANCE AND A MULTITUDE OF VISITS AND ADMITS, NEARLY ALL FOR DIABETES RELATED COMPLAINTS AND A MULTITUDE OF EPISODES OF DKA SHE WAS ADMITTED 05/07-05/11/23 FOR DKA, WITH THESE SAME SYMPTOMS PT WAS PRESCRIBED LEVEMIR AT DISMISSAL, BUT SHE HAS NOT PICKED UP THE PRESCRIPTION YET. SHE STATES SHE HAS CONTINUED TO TAKE HER LANTUS PREVIOUSLY PRESCRIBED [place] [facility] [place] and Home Medications Allergies Coded Allergies: bismuth subsalicylate (Verified Allergy, Unknown, 08/29/22) latex (Unverified Allergy, Unknown, 01/09/23) Patient Home Medication List Acetaminophen (Tylenol Extra Strength) 500 Mg Tablet, 1,000 MG PO Q8H PRN for PAIN-MILD (1-4), (Reported) Entered as Reported by: COLT BOURNE on 02/28/23 1150 Bupropion HCl (Bupropion HCl) 75 Mg Tablet, 75 MG PO BID, (Reported) Entered as Reported by: COLT BOURNE on 02/28/23 1150 Ibuprofen (Ibuprofen) 200 Mg Tablet, 400 MG PO Q8H PRN for PAIN-MILD (1-4), (Reported) Entered as Reported by: COLT BOURNE on 01/10/23 1134 Insulin Determir (Levemir) 100 Unit/Ml Soln, 25 UNIT SQ BID Prescribed by: JOSE OKEEFE on 05/11/23 1059 Insulin Lispro (Insulin Lispro) 100 Unit/Ml Vial, UNIT SQ AC, (Reported) Entered as Reported by: COLT BOURNE on 04/02/23 0943 Review of Systems Review of Systems Constitutional: no symptoms reported EENTM: no symptoms reported Respiratory: short of breath Cardiovascular: no symptoms reported Gastrointestinal: see HPI Genitourinary: see HPI Musculoskeletal: see HPI Skin: no symptoms reported Psychiatric/Neurological: See HPI Hematologic/Lymphatic: No Symptoms Reported Immunological/Allergic: no symptoms reported Past Lqbvnul-Nzixsy-Bqfdzl Hx Patient Social History Tobacco Use?: No Substance use?: Yes Substance type: Marijuana Alcohol Use?: No Immunizations Up To Date Tetanus Booster (TDap): Less than 5yrs PED Vaccines UTD: Yes First/Initial COVID19 Vaccinat: APR 2021 Second COVID19 Vaccination [place]: MAY 2021 Third COVID19 Vaccination Date: APR 2021 Seasonal Allergies Seasonal Allergies: No Past Medical History Surgery/Hospitalization HX: DM, PORT PLACEMENT Surgeries: Yes (Port placement) Respiratory: No Currently Using CPAP: No Currently Using BIPAP: No Cardiac: Yes (TACHYCARDIA) Palpitations Neurological: No Reproductive Disorders: No Female Reproductive Disorders: Denies Sexually Transmitted Disease: No HIV/AIDS: No Genitourinary: Yes Bladder Infection Gastrointestinal: Yes (CANNABIS HYPEREMESIS; CHRONIC 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 DX AGE 12) Diabetes, Insulin dep HEENT: No Loss of Vision: Denies Hearing Impairment: Denies Cancer: No Psychosocial: Yes Anxiety, Depression Integumentary: No Blood Disorders: No Adverse Reaction/Blood Tranf: No Family Medical History No Pertinent Family Hx, Other Conditions/Hx DELIVERED 12/07/22--STILLBORN AT 29/30 WEEKS GESTATION. Physical Exam Vital Signs Vital Signs - First Documented 05/16/23 01:30 Temp 36.8 Pulse 143 Resp 32 B/P (MAP) 131/84 (100) Capillary Refill : Height, Weight, BMI Height: 5'9.00" Weight: 255lbs. 0oz. 115.739768ug; 31.76 BMI Method:Stated General Appearance: WD/WN, Anxious, Other (SITTING -STYLE, ROCKING BACK AND FORTH, HYPERVENTILATING. DRY HEAVING. ) HEENT: PERRL/EOMI, Other (ORAL MUCOSA MOIST) Neck: Normal Inspection Respiratory: No Accessory Muscle Use, No Respiratory Distress, Other (HYPERVENTILATING) Cardiovascular: No Edema, No Murmur, Tachycardia Gastrointestinal: Soft, Tenderness (MILD DIFFUSE TENDERNESS) Back: No CVA Tenderness Extremity: Normal Inspection Neurologic/Psychiatric: Alert, Oriented x3, No Motor/Sensory Deficits, repairer kiln car II- XII Norm as Tested Skin: Normal Color, Warm/Dry Focused Exam Lactate Level 05/16/23 01:45: Lactic Acid Level 1.40 Lactic Acid Level Laboratory Tests Test 05/16/23 01:45 Lactic Acid Level 1.40 MMOL/L (0.50-2.00) Procedures/Interventions Date of ETT Placement: Feb 18, 2021 Time of ETT Placement: 1432 Progress/Results/Core Measures Suspected Sepsis SIRS Temperature: Pulse: Respiratory Rate: Laboratory Tests 05/16/23 01:45: White Blood Count 9.1 Blood Pressure / Mean: 05/16/23 01:45: Lactic Acid Level 1.40 Laboratory Tests 05/16/23 01:45: Platelet Count 519H, Total Bilirubin 0.4 Results/Orders Lab Results Laboratory Tests Test 05/16/23 01:36 05/16/23 01:45 05/16/23 01:57 05/16/23 03:22 Range/Units Glucometer 428 *H 70-110 MG/DL White Blood Count 9.1 4.3-11.0 10^3/uL Red Blood Count 4.23 3.80-5.11 10^6/uL Hemoglobin 10.7 #L 11.5-16.0 g/dL Hematocrit 36 35-52 % Mean Corpuscular Volume 84 80-99 fL Mean Corpuscular Hemoglobin 25 25-34 pg Mean Corpuscular Hemoglobin Concent 30 L 32-36 g/dL Red Cell Distribution Width 19.3 H 10.0-14.5 % Platelet Count 519 H 130-400 10^3/uL Mean Platelet Volume 10.2 9.0-12.2 fL Immature Granulocyte % (Auto) 1 % Neutrophils (%) (Auto) 65 42-75 % Lymphocytes (%) (Auto) 25 12-44 % Monocytes (%) (Auto) 8 0-12 % Eosinophils (%) (Auto) 0 0-10 % Basophils (%) (Auto) 1 0-10 % Neutrophils # (Auto) 5.9 1.8-7.8 10^3/uL Lymphocytes # (Auto) 2.3 1.0-4.0 10^3/uL Monocytes # (Auto) 0.7 0.0-1.0 10^3/uL Eosinophils # (Auto) 0.0 0.0-0.3 10^3/uL Basophils # (Auto) 0.1 0.0-0.1 10^3/uL Immature Granulocyte # (Auto) 0.1 0.0-0.1 10^3/uL Venous Blood pH 7.20 L 7.31-7.41 Venous Blood Partial Pressure CO2 14 L 40-52 MMHG Venous Blood HCO3 5 L 22-28 MMOL/L Sodium Level 137 135-145 MMOL/L Potassium Level 4.5 3.6-5.0 MMOL/L Chloride Level 103 98-107 MMOL/L Carbon Dioxide Level < 5 *L 21-32 MMOL/L Anion Gap 29 H 5-14 MMOL/L Blood Urea Nitrogen 11 7-18 MG/DL Creatinine 1.27 0.60-1.30 MG/DL Estimat Glomerular Filtration Rate 62 BUN/Creatinine Ratio 9 Glucose Level 479 *H 70-105 MG/DL Lactic Acid Level 1.40 0.50-2.00 MMOL/L Calcium Level 8.6 8.5-10.1 MG/DL Corrected Calcium 8.8 8.5-10.1 MG/DL Magnesium Level 1.9 1.6-2.4 MG/DL Total Bilirubin 0.4 0.1-1.0 MG/DL Aspartate Amino Transf (AST/SGOT) 48 H 5-34 U/L Alanine Aminotransferase (ALT/SGPT) 35 0-55 U/L Alkaline Phosphatase 217 H 40-136 U/L Total Protein 7.2 6.4-8.2 GM/DL Albumin 3.8 3.2-4.5 GM/DL Amylase Level 45 25-125 U/L Lipase 16 8-78 U/L Beta-Hydroxybutyrate (Chem panel) 10.43 H 0.00-0.27 MMOL/L Serum Test, Qualitative NEGATIVE NEGATIVE Influenza Type A (RT-PCR) Not Detected Not Detecte Influenza Type B (RT-PCR) Not Detected Not Detecte SARS-CoV-2 RNA (RT-PCR) Not Detected Not Detecte Urine Color YELLOW Urine Clarity CLEAR Urine pH 5.0 5-9 Urine Specific Jackson 1.025 H 1.016-1.022 Urine Protein TRACE NEGATIVE Urine Glucose (UA) 2+ H NEGATIVE Urine Ketones 4+ H NEGATIVE Urine Nitrite NEGATIVE NEGATIVE Urine Bilirubin 1+ H NEGATIVE Urine Urobilinogen 0.2 < = 1.0 MG/DL Urine Leukocyte Esterase NEGATIVE NEGATIVE Urine RBC (Auto) TRACE H NEGATIVE Urine RBC NONE /HPF Urine WBC 2-5 /HPF Urine Squamous Epithelial Cells 0-2 /HPF Urine Crystals NONE /LPF Urine Bacteria NEGATIVE /HPF Urine Casts NONE /LPF Urine Mucus NEGATIVE /LPF Urine Culture Indicated NO Urine Opiates Screen NEGATIVE NEGATIVE Urine Oxycodone Screen NEGATIVE NEGATIVE Urine Methadone Screen NEGATIVE NEGATIVE Urine Propoxyphene Screen NEGATIVE NEGATIVE Urine Barbiturates Screen NEGATIVE NEGATIVE Ur Tricyclic Antidepressants Screen NEGATIVE NEGATIVE Urine Phencyclidine Screen NEGATIVE NEGATIVE Urine Amphetamines Screen NEGATIVE NEGATIVE Urine Methamphetamines Screen NEGATIVE NEGATIVE Urine Benzodiazepines Screen NEGATIVE NEGATIVE Urine Cocaine Screen NEGATIVE NEGATIVE Urine Cannabinoids Screen NEGATIVE NEGATIVE Test 05/16/23 04:30 Range/Units Glucometer 311 H 70-110 MG/DL My Orders Orders - LADONNA RANGEL DO Accucheck Stat ONCE (05/16/23 01:32) Ed Iv/Invasive Line Start (05/16/23 01:32) Monitor-Rhythm Ecg Trace Only (05/16/23 01:32) Amylase (05/16/23 01:32) Cbc With Automated Diff (05/16/23 01:32) Comprehensive Metabolic Panel (05/16/23 01:32) Drug Screen Stat (Urine) (05/16/23 01:32) Hcg,Qualitative Serum (05/16/23 01:32) Lactic Acid Analyzer (05/16/23 01:32) Lipase (05/16/23 01:32) Magnesium (05/16/23 01:32) Ua Culture If Indicated (05/16/23 01:32) Ed Iv/Invasive Line Start (05/16/23 01:32) Ns Iv 1000 Ml (Ns Iv 1000 Ml) (05/16/23 01:45) Ondansetron Injection (Ondansetron Inj (05/16/23 01:45) Venous Blood Gas (05/16/23 01:32) Covid 19 Inhouse Test (05/16/23 01:40) Influenza A And B By Pcr (05/16/23 01:40) Pantoprazole Injection (Pantoprazole Inj (05/16/23 02:00) Metoclopramide Injection (Metoclopramide (05/16/23 02:15) Diphenhydramine Injection (Diphenhydram (05/16/23 02:15) Beta Hydroxybutyrate (05/16/23 02:27) Ondansetron Injection (Ondansetron Inj (05/16/23 02:45) Fentanyl Injection (Fentanyl Injection (05/16/23 02:45) Ed Iv/Invasive Line Start (05/16/23 02:48) Ns Iv 1000 Ml (Ns Iv 1000 Ml) (05/16/23 03:00) Sodium Bicarbonate 8.4% Syr (Sodium Bica (05/16/23 03:00) Insulin (Regular) Per Unit (Insulin (Reg (05/16/23 03:00) Droperidol Injection (Ed Only) (Droperid (05/16/23 04:00) Ed Admission (Communication) (05/16/23 04:26) Accucheck Stat ONCE (05/16/23 04:26) Medications Given in ED Vital Signs/I&O 05/16/23 01:30 Temp 36.8 Pulse 143 Resp 32 B/P (MAP) 131/84 (100) Capillary Refill : Progress Note : Progress Note VITALS ON ARRIVAL: TEMP 36.8=98.2, HR143, RR 30-40, BP 141/84, O2 SAT 100% ON ROOM AIR ACCUCHECK ON ARRIVAL 428 ACCUCHECK AT TIME OF ADMIT 311 GIVEN: -IV FLUIDS -INSULIN -PROTONIS -ZOFRAN -REGLAN -BENADRYL -INAPSINE -FENTANYL HEART RATE, RESPIRATORY RATE DECREASED AT TIME OF ADMIT; VITALS STABLE SYMPTOMS ARE IMPROVED AT TIME OF ADMIT NO DETERIORATION IN PT'S CONDITION DURING ER STAY DISCUSSED TEST RESULTS, NEED FOR ADMIT AND PT IS AGREEABLE TO PLAN REVIEWED PRIOR RECORDS, INCLUDING ER VISITS, ADMITS/H&P'S/CONSULTS/DISCHARGE SUMMARIES, TESTS/PROCEDURES. Departure Impression Primary Impression: DKA (diabetic ketoacidosis) Additional Impressions: Uncontrolled type 1 diabetes mellitus Nausea & vomiting Departure-Patient Inst. Referrals: COLT LAMBERT DO (PCP/Family) Primary Care Physician LADONNA RANGEL DO May 16, 2023 01:57
[2023-05-16] MEDS ORDERED: PANTOPRAZOLE INJECTION 40 MG VIAL IV ONE (02:00)
[2023-05-16 02:02] LABS: BASOPHILS # (AUTO) 0.1 10^3/uL (0.0-0.1); BASOPHILS % (AUTO) 1 % (0-10); EOSINOPHILS % (AUTO) 0 % (0-10); HEMATOCRIT 36 % (35-52); HEMOGLOBIN 10.7 g/dL (11.5-16.0); LYMPHOCYTES # (AUTO) 2.3 10^3/uL (1.0-4.0); LYMPHOCYTES % (AUTO) 25 % (12-44); MEAN CORPUSCULAR HEMOGLOBIN 25 pg (25-34); MEAN CORPUSCULAR HGB CONC 30 g/dL (32-36); MEAN CORPUSCULAR VOLUME 84 fL (80-99); MEAN PLATELET VOLUME 10.2 fL (9.0-12.2); MONOCYTES # (AUTO) 0.7 10^3/uL (0.0-1.0); MONOCYTES % (AUTO) 8 % (0-12); NEUTROPHILS # (AUTO) 5.9 10^3/uL (1.8-7.8); NEUTROPHILS % (AUTO) 65 % (42-75); PLATELET COUNT 519 10^3/uL (130-400); WHITE BLOOD COUNT 9.1 10^3/uL (4.3-11.0)
[2023-05-16] MEDS ORDERED: diphenhydrAMINE INJ 50 MG/ML VIAL IVP ONE (02:15)
[2023-05-16] MEDS ORDERED: METOCLOPRAMIDE INJ 10 MG/2 ML IVP ONE (02:15)
[2023-05-16 02:22] LABS: ALANINE AMINOTRANSFERASE 35 U/L (0-55); ALBUMIN 3.8 GM/DL (3.2-4.5); ALKALINE PHOSPHATASE 217 U/L (40-136); AMYLASE 45 U/L (25-125); BILIRUBIN,TOTAL 0.4 MG/DL (0.1-1.0); BUN/CREATININE RATIO 9; CALCIUM 8.6 MG/DL (8.5-10.1); CHLORIDE 103 MMOL/L (98-107); CREATININE SERUM 1.27 MG/DL (0.60-1.30); GFR ESTIMATED 62; LIPASE 16 U/L (8-78); MAGNESIUM 1.9 MG/DL (1.6-2.4); POTASSIUM 4.5 MMOL/L (3.6-5.0); SODIUM 137 MMOL/L (135-145); TOTAL PROTEIN 7.2 GM/DL (6.4-8.2)
[2023-05-16] MEDS ORDERED: fentaNYL INJECTION 100 MCG/2 ML VIAL IVP ONE (02:45)
[2023-05-16 02:47] LABS: CARBON DIOXIDE < 5 MMOL/L (21-32); GLUCOSE 479 MG/DL (70-105)
[2023-05-16] MEDS ORDERED: inSUlin (REGULAR) HUMAN 1 UNIT/0.01 ML (CHARGE PER UNIT) IV ONE (03:00)
[2023-05-16] MEDS ORDERED: SODIUM BICARB 8.4% 50 MEQ/50 ML (ABBOTT) SYR IV ONE (03:00)
[2023-05-16 03:47] LABS: BACTERIA,URINE NEGATIVE /HPF; BILIRUBIN,URINE 1+ (NEGATIVE); CLARITY,URINE CLEAR; COLOR,URINE YELLOW; GLUCOSE, URINE (UA) 2+ (NEGATIVE); KETONES,URINE 4+ (NEGATIVE); LEUKOCYTE ESTERASE ,URINE NEGATIVE (NEGATIVE); NITRITE,URINE NEGATIVE (NEGATIVE); PROTEIN,URINE TRACE (NEGATIVE)
[2023-05-16 03:48] LABS: SQUAMOUS EPITHELIAL CELL,UR 0-2 /HPF
[2023-05-16 03:53] LABS: AMPHETAMINE SCREEN, URINE NEGATIVE (NEGATIVE); BARBITURATE SCREEN URINE NEGATIVE (NEGATIVE); BENZODIAZEPINES SCREEN URINE NEGATIVE (NEGATIVE); CANNABINOID SCREEN, URINE NEGATIVE (NEGATIVE); COCAINE SCREEN URINE NEGATIVE (NEGATIVE); METHADONE STAT NEGATIVE (NEGATIVE); OPIATE SCREEN URINE NEGATIVE (NEGATIVE); OXYCODONE STAT NEGATIVE (NEGATIVE); PROPOXYPHENE STAT NEGATIVE (NEGATIVE); TRICYCLIC ANTIDEPRESSANTS SCRE NEGATIVE (NEGATIVE)
[2023-05-16] MEDS ORDERED: DroPERidol INJECTION 5 MG/2 ML (ED ONLY!) IV ONE (04:00)
[2023-05-16] MEDS ORDERED: ANTACID SUSPENSION 30 ML UDC PO PRN (06:30)
[2023-05-16] MEDS ORDERED: BISACODYL 10 MG SUPPOSITORY PR PRN (06:30)
[2023-05-16] MEDS ORDERED: LACTULOSE SYRUP 10GM/15ML 30ML UDC PO PRN (06:30)
[2023-05-16] MEDS ORDERED: ONDANSETRON 4 MG ORAL DISSOLVE TABLET PO PRN (06:30)
[2023-05-16] MEDS ORDERED: MILK OF MAGNESIA 400 MG/5 ML 30 ML UDC PO PRN (06:30)
[2023-05-16] MEDS ORDERED: diphenhydrAMINE 25 MG TABLET PO PRN (06:30)
[2023-05-16] MEDS ORDERED: diphenhydrAMINE INJ 50 MG/ML VIAL IVP PRN (06:30)
[2023-05-16] MEDS ORDERED: NS IV 500 ML 500 ML IV PRN (06:30)
[2023-05-16] MEDS ORDERED: ACETAMINOPHEN 325 MG TABLET PO PRN (06:30)
[2023-05-16] MEDS ORDERED: CALCIUM CARBONATE 500 MG CHEW TABLET PO PRN (06:30)
[2023-05-16] MEDS ORDERED: MELATONIN 3 MG TABLET PO PRN (06:30)
[2023-05-16] MEDS ORDERED: POTASSIUM CL 10MEQ/50ML IVPB 50 ML IV ONE (06:40)
[2023-05-16] MEDS: 1/2 NS IV SOLUTION 1000 ML 1,000 ML IV SCH ×5 (06:47→22:41)
[2023-05-16] MEDS: POTASSIUM CL 10MEQ/50ML IVPB 50 ML IV SCH ×13 (06:51→23:11)
[2023-05-16] MEDS: ENOXAPARIN 40 MG/0.4 ML SYRINGE SC SCH (06:54)
[2023-05-16 06:56] VITALS: BP 131/84
[2023-05-16] MEDS ORDERED: RT-ALBUTEROL SULF 2.5 MG/3 ML PRE-MIX VIAL INH PRN (07:15)
[2023-05-16 07:19] LABS: BUN/CREATININE RATIO 8; CALCIUM 8.5 MG/DL (8.5-10.1); CHLORIDE 110 MMOL/L (98-107); CREATININE SERUM 1.33 MG/DL (0.60-1.30); GFR ESTIMATED 59; POTASSIUM 4.6 MMOL/L (3.6-5.0); SODIUM 139 MMOL/L (135-145)
[2023-05-16 07:23] LABS: CARBON DIOXIDE < 5 MMOL/L (21-32); GLUCOSE 471 MG/DL (70-105)
--- NOTE | 2023-05-16 07:35 | Tele-ICU Progress Note ---
Subjective Date Seen by a Provider: May 16, 2023 Subjective/Events-last exam This virtual visit was conducted using real time audio/video. Thank you for asking us to see this patient for recurrent DKA Recent events: PE: Comfortable. VSS. HEENT: No obvious masses, adenopathy or JVD. Chest: clear to auscultation. CV: RRR S1 S2 No murmur or added sounds. Abd: Non-tender. Bowel sounds Y. : Unremarkable. Jeffries N. EYEGLASS FRAME TRUER/psychiatric: Grossly intact. No obvious focal findings. Extremities: No edema. Capillary refill < 3 seconds. Skin: unremarkable. AG 24, BG 471. Available chart/ vitals / labs / images reviewed. Video assessment done using teleICU camera, rest of exam as per RN. A/P: Critical Care: critically ill patient. Cont.Silverio., IVF, IV insulin, Zofran. Discussed with JUSTIN Alba. Asked RN to reach out to eICU if any questions or concerns later. Time spent with patient/coordination of care with other health professionals (mins): 15. Sepsis Event Evaluation Height, Weight, BMI Height: 5'9.00" Weight: 255lbs. 0oz. 115.087283st; 31.76 BMI Method:Stated Focused Exam Lactate Level 05/16/23 01:45: Lactic Acid Level 1.40 Exam Exam Patient acknowledged, consented, and participated in this virtual visit which was conducted using real time audio/video Vital Signs Date Time Temp Pulse Resp B/P (MAP) Pulse Ox O2 Delivery O2 Flow Rate FiO2 05/16/23 06:56 36.8 143 05/16/23 06:50 147 05/16/23 01:30 36.8 143 32 131/84 (100) I & O 05/16/23 07:00 Intake Total 2000 ml Output Total 700 ml Balance 1300 ml Height & Weight Height: 5'9.00" Weight: 255lbs. 0oz. 115.451413lx; 31.76 BMI Method:Stated General Appearance: No Apparent Distress Capillary Refill: Less Than 3 Seconds Peripheral Pulses: 2+ Dorsalis Pedis (R), 2+ Left Dors-Pedis (L) (See free text.) Results Lab Laboratory Tests 05/16/23 01:45 05/16/23 06:49 Assessment/Plan Assessment/Plan See free text. Critical Care: Critically Ill Patient ALESIA SULLIVAN MD May 16, 2023 07:35
[2023-05-16] MEDS: HYDROmorphone INJECTION 2 MG/ML VIAL IV PRN ×3 (08:00→20:35)
[2023-05-16] MEDS: ONDANSETRON INJECTION 4 MG/2 ML (SDV) IV PRN (08:01)
[2023-05-16 08:51] LABS: BUN/CREATININE RATIO 8; CALCIUM 7.6 MG/DL (8.5-10.1); CHLORIDE 113 MMOL/L (98-107); CREATININE SERUM 1.12 MG/DL (0.60-1.30); GFR ESTIMATED 72; GLUCOSE 357 MG/DL (70-105); POTASSIUM 4.3 MMOL/L (3.6-5.0); SODIUM 140 MMOL/L (135-145)
[2023-05-16 08:55] LABS: CARBON DIOXIDE < 5 MMOL/L (21-32)
[2023-05-16] MEDS: D5 1/2 NS 1,000 ML IV 1,000 ML IV SCH ×4 (10:39→22:59)
[2023-05-16] MEDS: DOCUSATE SODIUM 100 MG CAPSULE PO SCH ×2 (10:55→20:34)
[2023-05-16] MEDS: SENNOSIDES 8.6 MG TABLET PO SCH ×2 (10:56→20:35)
[2023-05-16 12:00] LABS: CALCIUM 7.7 MG/DL (8.5-10.1); CREATININE SERUM 0.96 MG/DL (0.60-1.30); POTASSIUM 4.1 MMOL/L (3.6-5.0)
--- NOTE | 2023-05-16 13:49 | History & Physical-Hospitalist ---
SHEREEFAM 05/16/23 1348: History of Present Illness HPI/Chief Complaint Simi is a 22 year old female that is in the hospital due to nausea, vomitting, and elevated blood sugar potentially being DKA. On 05/15, Simi noted that throughout the day she was feeling nauseous and was vomitting. Simi claims to have been monitoring her blood sugar and says it was normal until around 1am. At this time, her blood sugar was elevated in the 300s. She came to the ED and was later transferred to the ICU. She states that she has had multiple episodes of DKA in the past. Simi endorses having rapid breaths, nausea, vomitting, increased urination, and being thirsty. She denies any fever, headaches, stomach pain, or ingestion of any substances. Simi states that she is tired, thirsty, and wants to sleep. She denies any alcohol or illicit drug usage. She states that she had access to insulin and wasn't sure why she was in DKA. She notes that she has been in DKA before and felt similar to her current condition. She says that she is feeling a bit better. At home she uses a combination of Insulin glargine and Lispro. Source: patient, family, RN notes reviewed Exam Limitations: no limitations Date Seen 05/16/23 Time Seen by a Provider: 09:25 Attending Physician Carlos Lyn DO PCP Admitting Physician: Patito Diamond DO Attending Physician: Patito Diamond DO Referring Physician Date of Admission May 16, 2023 at 06:26 Home Medications & Allergies Home Medications Reviewed patient Home Medication Reconciliation performed by pharmacy medication reconciliations generation technician and/or nursing. Patients Allergies have been reviewed. Allergies Allergies Coded Allergies bismuth subsalicylate (Verified Allergy, Unknown, 08/29/22) latex (Unverified Allergy, Unknown, 01/09/23) Past [id number]-[id number]-Gxrspx Hx Patient Social History Marrital Status: single Tobacco Use?: Yes Tobacco type used: Cigarettes Smoking Status: Current Everyday Smoker Substance use?: No Alcohol Use?: No Pt feels they are or have been: No Immunizations Up To Date Date of Influenza Vaccine: Jul 25, 2022 First/Initial COVID19 Vaccinat: APR 2021 Second COVID19 Vaccination [place]: MAY 2021 Tetanus Booster (TDap): Unknown Hepatitis A: No Hepatitis B: No PED Vaccines UTD: Yes Seasonal Allergies Seasonal Allergies: No Current Status status: No Advance Directives: No Communicates: Verbally Primary Language: Congolese Preferred Spoken Language: Congolese Is interpretation needed?: No Implanted or Applied Medical D: None, Port-a-cath Past Medical History Currently Using CPAP: No Currently Using BIPAP: No Palpitations Sexually Transmitted Disease: No HIV/AIDS: No Bladder Infection Diabetes, Insulin dep (multiple episodes of DKA) Are Your Blood Sugars Over 250: Yes (at time of visit, trending down) Loss of Vision: Denies Hearing Impairment: Denies Anxiety, Depression Blood Disorders: No Adverse Reaction/Blood Tranf: No PMHx: Type I DM Depression SurgHx: Denies Family Medical History No Pertinent Family Hx, Other Conditions/Hx DELIVERED 12/07/22--STILLBORN AT 29/30 WEEKS GESTATION. Review of Systems Constitutional: No diaphoresis, No fever EENTM: no symptoms reported; No blurred vision, No vision loss Respiratory: no symptoms reported Cardiovascular: no symptoms reported; No chest pain, No palpitations Gastrointestinal: see HPI, nausea, vomiting Genitourinary: frequency (increased frequency) : No Musculoskeletal: no symptoms reported Skin: no symptoms reported Psychiatric/Neurological: Anxiety, Depressed Other patient reports being more thirsty Physical Exam Physical Exam Vital Signs Vital Signs - First Documented 05/16/23 05/16/23 01:30 07:00 Temp 36.8 Pulse 143 Resp 32 B/P (MAP) 131/84 (100) Pulse Ox 100 Capillary Refill : Less Than 3 Seconds Height, Weight, BMI Height: 5'9.00" Weight: 255lbs. 0oz. [id number]; 27.23 BMI Method:Stated General Appearance: Mild Distress (tachypnea, appears uncomfortable) Eyes: Bilateral Eye Normal Inspection, Bilateral Eye PERRL, Bilateral Eye EOMI HEENT: PERRL/EOMI, Moist Mucous Membranes; No Scleral Icterus (L), No Scleral Icterus (R) Neck: Supple; No Carotid Bruit, No JVD Respiratory: Chest Non Tender, Lungs Clear, Normal Breath Sounds, Accessory Muscle Use, Other (tachypnea ) Cardiovascular: Regular Rate, Rhythm, No Edema, No Gallop, No JVD, No Murmur, Normal Peripheral Pulses Gastrointestinal: Normal Bowel Sounds, No Pulsatile Mass, Non Tender, Soft Rectal: Deferred Back: Normal Inspection Extremity: Normal Capillary Refill Neurologic/Psychiatric: Alert, Oriented x3, Depressed Affect Reflexes: 2+ Ankle (R), 2+ Ankle (L) Skin: Normal Color, Warm/Dry Lymphatic: No Adenopathy Results Results/Procedures Labs Laboratory Tests 05/16/23 01:45 05/16/23 06:49 05/16/23 08:28 05/16/23 11:24 Patient resulted labs reviewed. 05/16/2023: UA showed concentrated urine (1.025) with elevated ketones (4+) and presence of glucose (2+). B-hydroxybutyrate was 9.5 (H) at 06:49 Negative toxicology for salicylates ABG showed pH at 7.20 with HAGMA (Anion gap of 24) at 06:49 Meds Insulin Human Regular drip (4mL/h), zofran, hydromorphone, enoxaparin, and potassium chloride Assessment/Plan Admission Diagnosis Diabetic Ketoacidosis due to uncontrolled T1DM Admission Status: Inpatient Order (span 2 midnights) Reason for Inpatient Admission: Insulin managment and monitoring of electrolytes Assessment and Plan 05/16/2023: Assessment: * DKA * Uncontrolled T1DM * Nausea/Vomitting * Depression * Anxiety Plan: For DKA, continue to monitor blood glucose and titrate insulin drip to ensure glucose in normal range. Transfer to [place] insulin supplementation. Supplement potassium loss with potassium chloride to prevent hypokalemia. Monitor electrolytes. Monitor anion gap for resolution of HAGMA. Goal for anion gap is <12 mEq/L per uptodate. Refer patient to primary care provider to to discuss potential interventions to prevent subsequent DKA due to brittle diabetes. Family member mentions desire for insulin pump in the future. Nausea and vomitting should subside with improvement of anion gap and DKA. Continue zofran for symptomatic management. Depression and anxiety treatment will require coordinated care for exploration of psychotherapy or further medicinal intervention. Patient is on Wellbutrin and should continue management of this medication with prescriber. Support goals of T1DM treatment and proper care of condition. Ensure that the patient is educated about T1DM management, port care, and any other concerns. Critical Care Critically Ill Patient (DKA) Diagnosis/Problems Diagnosis/Problems (1) DKA (diabetic ketoacidosis) Onset Date: 05/14/2023 Status: Acute Assessment & Plan: Monitor glucose, continue Insulin, Potassium supplementation, montior B-hydroxybutyrate, check anion gap until <12 mEq/L. Qualifiers: Diabetes mellitus type: type 1 Diabetes mellitus complication detail: without coma Qualified Codes: E10.10 - Type 1 diabetes mellitus with ketoacidosis without coma (2) Uncontrolled type 1 diabetes mellitus Status: Chronic Qualifiers: Glycemic state: with hyperglycemia Qualified Codes: E10.65 - Type 1 diabetes mellitus with hyperglycemia (3) Nausea & vomiting Status: Acute Assessment & Plan: resolve DKA, zofran for symptom management Qualifiers: Vomiting type: unspecified Qualified Codes: R11.2 - Nausea with vomiting, unspecified (4) Depression Status: Chronic (5) Anxiety Status: Chronic (6) Port-A-Cath in place Status: Chronic Assessment & Plan: Continue proper care Clinical Quality Measures Admission Status Admission Dx DKA due to uncontrolled T1DM Admission Status: Inpatient Order (span 2 midnights) Reason for Inpatient Admission: DKA treatment and monitoring DVT/VTE Prophylaxis Comfirm.Dx Mechanical not ordered: Pharmacological PPX PATITO DIAMOND DO 05/16/23 2010: Assessment/Plan Admission Diagnosis DKA recurrent and type Plan: Insulin drip DKA protocol Insulin pump as an outpatient Close follow-up with [facility] Admission Status: Inpatient Order (span 2 midnights) Reason for Inpatient Admission: DKA Supervisory-Addendum Brief Verification & Attestation Participated in pt care: history, MDM, physical Personally performed: exam, history, MDM, supervision of care Care discussed with: Medical Student Procedures: n/a Results interpretation: Verified all documentation Verification and Attestation of Medical Student E/M Service A medical student performed and documented this service in my presence. I reviewed and verified all information documented by the medical student and made modifications to such information, when appropriate. I personally performed the physical exam and medical decision making. Patito Diamond May 16, 2023,20:10 FAM BENTLEY May 16, 2023 13:48 PATITO DIAMOND DO May 16, 2023 20:10
[2023-05-16 16:57] LABS: CALCIUM 7.5 MG/DL (8.5-10.1); CREATININE SERUM 0.87 MG/DL (0.60-1.30); POTASSIUM 3.5 MMOL/L (3.6-5.0)
[2023-05-16] MEDS: oxyCODONE IMMEDIATE RELEASE 5 MG TABLET PO PRN ×2 (18:17→22:59)
[2023-05-17 00:27] LABS: POTASSIUM 3.5 MMOL/L (3.6-5.0)
[2023-05-17 00:28] LABS: CALCIUM 7.5 MG/DL (8.5-10.1)
[2023-05-17] MEDS: HYDROmorphone INJECTION 2 MG/ML VIAL IV PRN (00:30)
[2023-05-17 00:32] LABS: CREATININE SERUM 0.84 MG/DL (0.60-1.30)
[2023-05-17] MEDS: POTASSIUM CL 10MEQ/50ML IVPB 50 ML IV SCH ×4 (01:26→07:14)
[2023-05-17] MEDS: ONDANSETRON INJECTION 4 MG/2 ML (SDV) IV PRN (01:31)
[2023-05-17 04:44] LABS: BASOPHILS % (AUTO) 1 % (0-10); EOSINOPHILS # (AUTO) 0.1 10^3/uL (0.0-0.3); EOSINOPHILS % (AUTO) 2 % (0-10); HEMATOCRIT 26 % (35-52); HEMOGLOBIN 7.9 g/dL (11.5-16.0); LYMPHOCYTES # (AUTO) 2.5 10^3/uL (1.0-4.0); LYMPHOCYTES % (AUTO) 42 % (12-44); MEAN CORPUSCULAR HEMOGLOBIN 25 pg (25-34); MEAN CORPUSCULAR HGB CONC 30 g/dL (32-36); MEAN CORPUSCULAR VOLUME 83 fL (80-99); MEAN PLATELET VOLUME 9.6 fL (9.0-12.2); MONOCYTES # (AUTO) 0.5 10^3/uL (0.0-1.0); MONOCYTES % (AUTO) 9 % (0-12); NEUTROPHILS # (AUTO) 2.8 10^3/uL (1.8-7.8); NEUTROPHILS % (AUTO) 47 % (42-75); PLATELET COUNT 319 10^3/uL (130-400)
[2023-05-17 04:58] LABS: ALBUMIN 2.7 GM/DL (3.2-4.5); BILIRUBIN,TOTAL 0.2 MG/DL (0.1-1.0); CALCIUM 7.5 MG/DL (8.5-10.1); CREATININE SERUM 0.77 MG/DL (0.60-1.30); MAGNESIUM 1.6 MG/DL (1.6-2.4); POTASSIUM 3.2 MMOL/L (3.6-5.0); TOTAL PROTEIN 4.8 GM/DL (6.4-8.2)
[2023-05-17] MEDS: 1/2 NS IV SOLUTION 1000 ML 1,000 ML IV SCH ×2 (05:24→06:37)
[2023-05-17] MEDS: D5 1/2 NS 1,000 ML IV 1,000 ML IV SCH ×2 (05:48→07:14)
[2023-05-17] MEDS: ENOXAPARIN 40 MG/0.4 ML SYRINGE SC SCH (05:54)
[2023-05-17] MEDS: oxyCODONE IMMEDIATE RELEASE 5 MG TABLET PO PRN ×3 (06:00→22:31)
[2023-05-17] MEDS ORDERED: POTASSIUM CHLORIDE 20 MEQ TABLET PO SCH (06:00)
[2023-05-17] MEDS ORDERED: MAGNESIUM 1 GM/100 ML IVPB 100 ML IV SCH (06:00)
[2023-05-17] MEDS ORDERED: POTASSIUM CL 10MEQ/50ML IVPB 50 ML IV SCH (06:00)
[2023-05-17] MEDS: SENNOSIDES 8.6 MG TABLET PO SCH ×2 (07:52→20:50)
[2023-05-17] MEDS: DOCUSATE SODIUM 100 MG CAPSULE PO SCH ×2 (07:52→20:50)
[2023-05-17] MEDS: inSUlin DETERMIR 1 UNIT/0.01 ML (CHARGE PER UNIT) SQ SCH ×2 (11:13→20:50)
[2023-05-17] MEDS ORDERED: 1/2 NS IV SOLUTION 1000 ML 1,000 ML IV SCH (11:15)
--- NOTE | 2023-05-17 12:07 | Progress Note - Hospitalist ---
FAM BENTLEY 05/17/23 1207: Subjective HPI/CC On Admission Date Seen by Provider: May 17, 2023 Time Seen by Provider: 09:15 Simi is a 22 year old female that is in the hospital due to nausea, vomitting, and elevated blood sugar potentially being DKA. On 05/15, Simi noted that throughout the day she was feeling nauseous and was vomitting. Simi claims to have been monitoring her blood sugar and says it was normal until around 1am. At this time, her blood sugar was elevated in the 300s. She came to the ED and was later transferred to the ICU. She states that she has had multiple episodes of DKA in the past. Simi endorses having rapid breaths, nausea, vomitting, increased urination, and being thirsty. She denies any fever, headaches, stomach pain, or ingestion of any substances. Simi states that she is tired, thirsty, and wants to sleep. She denies any alcohol or illicit drug usage. She states that she had access to insulin and wasn't sure why she was in DKA. She notes that she has been in DKA before and felt similar to her current condition. She says that she is feeling a bit better. At home she uses a combination of Insulin glargine and Lispro. Subjective/Events-last exam 05/17/2023: 22y female in hospital day 2 for recurrent DKA. Patient stated that pain has subsided and that she is feeling better. She is sleepy and tired. She says that sleeping makes her feel better. She notes that her thirst has decreased from previous days. She also notes that her urination has normalized. She still hasn't had a bowel movement. She notes that she feels like she isn't breathing as rapidly as yesterday. She is glad that her glucose levels are in a better range. She has no other concerns. Review of Systems General: No Chills, No Fatigue; Malaise HEENT: No Head Aches Pulmonary: No Dyspnea, No Cough, No Pleuritic Chest Pain Cardiovascular: No: Chest Pain, Palpitations, Orthopnea, Paroxysmal Noc. Dyspnea, Edema, Lt Headedness, Other Gastrointestinal: Constipation; No: Nausea, Vomiting, Abdominal Pain, Diarrhea, Melena, Hematochezia, Other Genitourinary: No Dysuria, No Frequency, No Incontinence, No Hematuria, No Retention, No Other Musculoskeletal: No: other, neck pain, shoulder pain, arm pain, back pain, hand pain, leg pain, foot pain Neurological: No: Weakness, Numbness, Incoordination, Change in speech, Confusion, Seizures, Other Focused Exam Sepsis Stage: Ruled Out Reason for ruling out sepsis: Normal pulse, temperature, bp, and LA. Lactate Level 05/16/23 01:45: Lactic Acid Level 1.40 Time of Focused Exam: 09:20 Respiratory: Chest Non Tender, Lungs Clear, Normal Breath Sounds, No Accessory Muscle Use, No Respiratory Distress, Other (no apparent kussmual respirations as noted previously) Cardiovascular: Regular Rate, Rhythm, No Edema, No Gallop, No JVD, No Murmur, Normal Peripheral Pulses Capillary Refill: Less Than 3 Seconds Peripheral Pulses: 2+ Dorsalis Pedis (R), 2+ Left Dors-Pedis (L), 2+ Radial Pulses (R), 2+ Radial Pulses (L) Skin: normal color, warm/dry; No ecchymosis, No jaundice Within 3hrs of presentation: Admin fluids, Focus exam, Lactate level Objective Exam Vital Signs Vital Signs Date Time Temp Pulse Resp B/P (MAP) Pulse Ox O2 Delivery O2 Flow Rate FiO2 05/17/23 11:00 84 17 119/76 (90) 99 Room Air 05/17/23 04:00 36.2 Capillary Refill : Less Than 3 Seconds General Appearance: No Apparent Distress, WD/WN HEENT: PERRL/EOMI, Moist Mucous Membranes; No Pale Conjunctivae (L), No Pale Conjunctivae (R), No Photophobia, No Scleral Icterus (L), No Scleral Icterus (R) Neck: Full Range of Motion, Normal Inspection, Non Tender, Supple Respiratory: Chest Non Tender, Lungs Clear, Normal Breath Sounds, No Accessory Muscle Use, No Respiratory Distress Cardiovascular: Regular Rate, Rhythm, No Edema, No Gallop, No JVD, No Murmur, Normal Peripheral Pulses Gastrointestinal: Normal Bowel Sounds, No Organomegaly, No Pulsatile Mass, Non Tender, Soft Rectal: Deferred Back: Normal Inspection Extremity: Normal Capillary Refill, Normal Inspection, Normal Range of Motion, Non Tender, No Calf Tenderness Neurologic/Psychiatric: Alert, Oriented x3, No Motor/Sensory Deficits, Normal Mood/Affect Results/Procedures Lab Laboratory Tests 05/16/23 16:15 05/17/23 00:05 05/17/23 04:18 Patient resulted labs reviewed. VBG: pH 7.27, bicarb 16 (improved) Anion Gap: 6 mEq/L potassium: 3.2(low) Assessment/Plan Assessment and Plan Assess & Plan/Chief Complaint 05/16/2023: Assessment: * DKA * Uncontrolled T1DM * Nausea/Vomitting * Depression * Anxiety Plan: For DKA, continue to monitor blood glucose and titrate insulin drip to ensure glucose in normal range. Transfer to [place] insulin supplementation. Supplement potassium loss with potassium chloride to prevent hypokalemia. Monitor electrolytes. Monitor anion gap for resolution of HAGMA. Goal for anion gap is <12 mEq/L per uptodate. Refer patient to primary care provider to to discuss potential interventions to prevent subsequent DKA due to brittle diabetes. Famil y member mentions desire for insulin pump in the future. Nausea and vomitting should subside with improvement of anion gap and DKA. Continue zofran for symptomatic management. Depression and anxiety treatment will require coordinated care for exploration of psychotherapy or further medicinal intervention. Patient is on Wellbutrin and should continue management of this medication with prescriber. Support goals of T1DM treatment and proper care of condition. Ensure that the patient is educated about T1DM management, port care, and any other concerns. 05/17/2023: Assessment: * DKA * Uncontrolled T1DM Plan: For DKA, anion gap has normalized to 6 (down from 24). Per uptodate, this signals resolution of HAGMA caused by DKA. Continue with insulin to ensure glucose in normal range. Consider transfer to [place] insulin. Continue with potassium supplementation due to potassium being 3.2 today. Continue to monitor electrolytes and subsequent anion gap. Transfer out of ICU since acuity of care has diminished due to control of glucose level. Plan for discharge on 05/18 barring any changes. Continue zofran for any nausea and vomitting if it returns. F/U with [facility] early next week (05/21) for continuity of care. Continue proper port-a-cath care Diagnosis/Problems Diagnosis/Problems (1) DKA (diabetic ketoacidosis) Onset Date: 05/14/2023 Status: Acute Assessment & Plan: Monitor glucose, continue Insulin, Potassium supplementation. Qualifiers: Qualified Codes: E10.10 - Type 1 diabetes mellitus with ketoacidosis without coma (2) Uncontrolled type 1 diabetes mellitus Status: Chronic Qualifiers: Qualified Codes: E10.65 - Type 1 diabetes mellitus with hyperglycemia (3) Nausea & vomiting Status: Acute Assessment & Plan: resolve DKA, zofran for symptom management Qualifiers: Qualified Codes: R11.2 - Nausea with vomiting, unspecified (4) Depression Status: Chronic (5) Anxiety Status: Chronic (6) Port-A-Cath in place Status: Chronic Assessment & Plan: Continue proper care Clinical Quality Measures Admission Status Admission Dx DKA due to uncontrolled T1DM Admission Status: Inpatient Order (span 2 midnights) Reason for Inpatient Admission: DKA, recurrent type DVT/VTE Prophylaxis Comfirm.Dx Mechanical not ordered: Pharmacological PPX PATITO SMYTH DO 05/18/23 0443: Subjective Subjective/Events-last exam Patient doing well Moving down to fourth floor Changed insulin drip to subcu Objective Exam General Appearance: No Apparent Distress, WD/WN, Chronically ill Assessment/Plan Assessment and Plan Assess & Plan/Chief Complaint Move down to fourth floor Supervisory-Addendum Brief Verification & Attestation Participated in pt care: history, MDM, physical Personally performed: exam, history, MDM, supervision of care Care discussed with: Medical Student Procedures: n/a Results interpretation: Verified all documentation Verification and Attestation of Medical Student E/M Service A medical student performed and documented this service in my presence. I re viewed and verified all information documented by the medical student and made modifications to such information, when appropriate. I personally performed the physical exam and medical decision making. Patito Smyth May 18, 2023,04:42 FAM BENTLEY May 17, 2023 12:07 PATITO SMYTH DO May 18, 2023 04:43
[2023-05-17 15:23] VITALS: BP 132/83
[2023-05-17] MEDS: inSUlin ASPART 1 UNIT/0.01 ML (PER UNIT) SC SCH ×2 (16:26→20:50)
[2023-05-17 19:33] VITALS: BP 122/75
[2023-05-17 23:04] VITALS: BP 148/89
[2023-05-18 04:00] VITALS: BP 134/82
[2023-05-18 05:08] LABS: BASOPHILS % (AUTO) 0 % (0-10); EOSINOPHILS # (AUTO) 0.1 10^3/uL (0.0-0.3); EOSINOPHILS % (AUTO) 1 % (0-10); HEMATOCRIT 27 % (35-52); HEMOGLOBIN 8.5 g/dL (11.5-16.0); LYMPHOCYTES # (AUTO) 2.7 10^3/uL (1.0-4.0); LYMPHOCYTES % (AUTO) 48 % (12-44); MEAN CORPUSCULAR HEMOGLOBIN 26 pg (25-34); MEAN CORPUSCULAR HGB CONC 32 g/dL (32-36); MEAN CORPUSCULAR VOLUME 82 fL (80-99); MEAN PLATELET VOLUME 9.6 fL (9.0-12.2); MONOCYTES # (AUTO) 0.4 10^3/uL (0.0-1.0); MONOCYTES % (AUTO) 8 % (0-12); NEUTROPHILS # (AUTO) 2.4 10^3/uL (1.8-7.8); NEUTROPHILS % (AUTO) 42 % (42-75); PLATELET COUNT 309 10^3/uL (130-400); WHITE BLOOD COUNT 5.6 10^3/uL (4.3-11.0)
[2023-05-18 05:17] LABS: ALBUMIN 2.8 GM/DL (3.2-4.5)
[2023-05-18 05:18] LABS: POTASSIUM 2.9 MMOL/L (3.6-5.0)
[2023-05-18 05:22] LABS: BILIRUBIN,TOTAL 0.2 MG/DL (0.1-1.0)
[2023-05-18] MEDS: inSUlin ASPART 1 UNIT/0.01 ML (PER UNIT) SC SCH ×3 (05:23→10:21)
[2023-05-18 05:24] LABS: CREATININE SERUM 0.73 MG/DL (0.60-1.30)
[2023-05-18 05:26] LABS: MAGNESIUM 1.4 MG/DL (1.6-2.4)
[2023-05-18] MEDS: ENOXAPARIN 40 MG/0.4 ML SYRINGE SC SCH (06:02)
[2023-05-18 07:22] VITALS: BP 136/80
[2023-05-18] MEDS: DOCUSATE SODIUM 100 MG CAPSULE PO SCH (10:12)
[2023-05-18] MEDS: SENNOSIDES 8.6 MG TABLET PO SCH (10:12)
[2023-05-18] MEDS: inSUlin DETERMIR 1 UNIT/0.01 ML (CHARGE PER UNIT) SQ SCH (10:13)
[2023-05-18] MEDS ORDERED: INSU100I10 SQ (10:54)
[2023-05-18] MEDS ORDERED: INSU100I23 SQ (10:54)
[2023-05-18 11:12] VITALS: BP 130/76
[2023-05-18 12:17] VITALS: BP 130/76
== END 2023-05-18 13:15 | disposition home or self-care (01) | DRG 639 ==
LOC: EDUNIT# 01:20 → ER 01:22 → ICU 06:26 → 4TH 05-17 15:00
PROVIDERS: ADMIT Internal Medicine; ATTEND Internal Medicine
DX: E10.10 Type 1 diabetes mellitus with ketoacidosis without coma (principal); F32.A Depression, unspecified; Z20.822 Contact with and (suspected) exposure to COVID-19; F41.9 Anxiety disorder, unspecified; F17.210 Nicotine dependence, cigarettes, uncomplicated; E87.6 Hypokalemia
CPT/HCPCS: 36415; 36600; 80048; 80053; 80306; 81000; 82010; 82150; 82805; 82947; 83605; 83690; 83735; 84100; 84703; 85025; 87081; 87636; 93041; 94760

== ENCOUNTER 2023-05-30 10:05 | Emergency (ER) | payer BC, MEDICAID ==
[~2023-05-30] VITALS: Ht 175.2 cm; Wt 78.9 kg
[~2023-05-30 10:05] MED LIST changes: +INSU100I23 SQ
[2023-05-30] MEDS ORDERED: fentaNYL INJECTION 100 MCG/2 ML VIAL IM ONE (10:30)
--- NOTE | 2023-05-30 10:46 | ED Fall/Injury ---
General Chief Complaint: Trauma-Non Activation Stated Complaint: RT SHOULDER INJ | FALL Nursing Triage Note: FELL DOWN APPROX 12-16 STAIRS Source: patient Exam Limitations: no limitations History of Present Illness Date Seen by Provider: May 30, 2023 Time Seen by Provider: 10:14 Initial Comments This 22-year-old young lady presents to the emergency room with a right shoulder injury. She was taking the trash out this morning and missed a step causing her to fall down 12-16 stairs. This was a purely mechanical fall. She did not have any prodrome of lightheadedness, dizziness, weakness, chest pain, shortness of breath, etc. She denies any other injuries. Her complaints are isolated to the shoulder. She landed directly on her right shoulder. She did bump her head against the wall but denies any injury or pain associated with that. She does have type 1 diabetes but reports blood sugars have been good recently. Allergies and Home Medications Allergies Coded Allergies: bismuth subsalicylate (Verified Allergy, Unknown, 08/29/22) latex (Unverified Allergy, Unknown, 01/09/23) Patient Home Medication List Home Medication List Reviewed: Yes Acetaminophen (Tylenol Extra Strength) 500 Mg Tablet, 1,000 MG PO Q8H PRN for PAIN-MILD (1-4), (Reported) Entered as Reported by: COLT BOURNE on 02/28/23 1150 Bupropion HCl (Bupropion HCl) 75 Mg Tablet, 75 MG PO BID, (Reported) Entered as Reported by: COLT BOURNE on 02/28/23 1150 Ibuprofen (Ibuprofen) 200 Mg Tablet, 400 MG PO Q8H PRN for PAIN-MILD (1-4), (Reported) Entered as Reported by: COLT BORUNE on 01/10/23 1134 Insulin Glargine,Hum.rec.anlog (Lantus Solostar) 100 Unit/Ml (3 Ml) Insuln.pen, 20 UNIT SQ BID Prescribed by: JOSIE SMYTH on 05/18/23 1054 Insulin Lispro (Insulin Lispro) 100 Unit/Ml Vial, UNIT SQ AC, (Reported) Entered as Reported by: COLT BOURNE on 04/02/23 0943 Insulin Lispro (Humalog Kwikpen) 100 Unit/Ml Insuln.pen, 10 UNIT SQ AC Prescribed by: JOSIE SMYTH on 05/18/23 1054 Review of Systems Review of Systems Constitutional: no symptoms reported Eyes: No Symptoms Reported Ears, Nose, Mouth, Throat: no symptoms reported Respiratory: no symptoms reported Cardiovascular: no symptoms reported Gastrointestinal: no symptoms reported Genitourinary: no symptoms reported Musculoskeletal: see HPI Skin: no symptoms reported Psychiatric/Neurological: No Symptoms Reported Past Fzajnug-Tyhsyu-Duhinz Hx Patient Social History Use of E-Cig and/or Vaping dev: Yes E-Cig or Vaping type used: Nicotine Substance use?: No Alcohol Use?: Yes Alcohol Frequency: Once in a while Immunizations Up To Date Tetanus Booster (TDap): Less than 5yrs PED Vaccines UTD: Yes First/Initial COVID19 Vaccinat: APR 2021 Second COVID19 Vaccination [place]: MAY 2021 Third COVID19 Vaccination Date: APR 2021 Seasonal Allergies Seasonal Allergies: No Past Medical History Surgery/Hospitalization HX: DM, PORT PLACEMENT Surgeries: Yes (Port placement) Respiratory: No Currently Using CPAP: No Currently Using BIPAP: No Cardiac: Yes (TACHYCARDIA) Palpitations Neurological: No Reproductive Disorders: No Female Reproductive Disorders: Denies Sexually Transmitted Disease: No HIV/AIDS: No Genitourinary: Yes Bladder Infection Gastrointestinal: Yes (CANNABIS HYPEREMESIS; CHRONIC 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 DX AGE 12) Diabetes, Insulin dep HEENT: No Loss of Vision: Denies Hearing Impairment: Denies Cancer: No Psychosocial: Yes Anxiety, Depression Integumentary: No Blood Disorders: No Adverse Reaction/Blood Tranf: No Family Medical History No Pertinent Family Hx, Other Conditions/Hx DELIVERED 12/07/22--STILLBORN AT 29/30 WEEKS GESTATION. Physical Exam Vital Signs Vital Signs - First Documented 05/30/23 10:17 Pulse 127 B/P (MAP) 127/90 (102) Pulse Ox 100 O2 Delivery Room Air Capillary Refill : Height, Weight, BMI Height: 5'9.00" Weight: 255lbs. 0oz. 115.611447ie; 25.00 BMI Method:Stated General Appearance: WD/WN, mild distress HEENT: normal ENT inspection Neck: non-tender, normal inspection Cardiovascular: regular rate, rhythm Respiratory: lungs clear, no respiratory distress Extremities: other (Tenderness to the posterior shoulder. Range of motion at the shoulder extremely restricted due to pain. Distal exam in the upper arm, elbow, forearm, hand, and wrist is unremarkable. Radial pulses strong. Global Lead is intact. Capillary refill and sensation intact in all fingers. No pain in the hand, wrist, or elbow with range of motion in those joints. No visible injury on external exam.) Neurologic/Psychiatric: no motor/sensory deficits, alert, normal mood/affect, oriented x 3 Skin: normal color, warm/dry Chaz Coma Score Best Eye Response: (4) Open Spontaneously Best Verbal Response: (5) Oriented Best Motor Response: (6) Obeys Commands [place] Total: 15 Procedures/Interventions Date of ETT Placement: Feb 18, 2021 Time of ETT Placement: 1432 Progress/Results/Core Measures Results/Orders My Orders Orders - SANTI NOBLES MD Fentanyl Injection (Fentanyl Injection (05/30/23 10:30) Shoulder, Right, 3 Views (05/30/23 10:20) Ibuprofen Tablet (Ibuprofen Tablet) (05/30/23 11:30) Medications Given in ED Vital Signs/I&O 05/30/23 05/30/23 10:17 11:47 Pulse 127 B/P (MAP) 127/90 (102) 127/93 Pulse Ox 100 O2 Delivery Room Air Blood Pressure Mean: 102 Progress Progress Note : Progress Note Patient was interviewed and examined at 1014. Fentanyl IM was administered for immediate pain relief. She was later given ibuprofen after review of x-rays. Injury seems to be isolated to the right shoulder. X-rays of the right shoulder were reviewed by me. No acute bony injuries were identified on my interpretation. Radiologist's report concurred with that impression as noted below. Patient's pain and decreased range of motion is likely secondary to soft tissue injury such as contusion, muscle strain, rotator cuff injury, etc. She was provided a sling. She was advised to follow-up with her primary care pro vider promptly if symptoms were not rapidly improving over the next several days. See discharge instructions for further discussion. Diagnostic Imaging Diagonstic Imaging: Xray Plain Films/CT/US/NM/MRI: chest Comments NAME: JOSE QURESHI Partha MED REC#: [id number] PT STATUS: DEP ER : 2002 PHYSICIAN: SANTI NOBLES MD ADMIT DATE: 05/30/23/ER Signed Date of Exam:05/30/23 SHOULDER, RIGHT, 3 VIEWS INDICATION: Fall, pain. EXAMINATION: Right shoulder, 3 views, on 05/30/2023. FINDINGS: No fractures or dislocations. Joint space is maintained. Chest port on the right incidentally noted. Visualized lung is clear. IMPRESSION: No acute process. Dictated by: Dictated on workstation # [id number] Dict: 05/30/23 1041 Trans: 05/30/23 1701 [id number] Interpreted by: KENAN RUBY MD Electronically signed by: KENAN RUBY MD 05/30/231700 Departure Impression Primary Impression: Right shoulder injury Qualified Codes: S49.91XA - Unspecified injury of right shoulder and upper arm, initial encounter Additional Impression: Fall down stairs Qualified Codes: W10.8XXA - Fall (on) (from) other stairs and steps, initial encounter Disposition: 01 HOME, SELF-CARE Condition: Stable Departure-Patient Inst. Decision time for Depature: 11:30 Referrals: COLT LAMBERT DO (PCP/Family) Primary Care Physician Patient Instructions: How to Use a Shoulder Sling Add. Discharge Instructions: Ice your shoulder in 20-minute intervals for the first 1 to 2 days as needed to help with pain and swelling. You may use Tylenol (acetaminophen) up to 1000 mg every 6 hours as needed for primary pain control. Add ibuprofen up to 600 mg every 6 hours as needed for additional pain relief. Ibuprofen should only be used for short-term pain control, especially in patients with diabetes. Use the sling as needed for comfort. Gradually increase level of activity and range of motion as pain allows. If you are not rapidly improving over the next several days, please follow-up with your primary care provider for further evaluation. You may simply have a muscle strain or bruise, but a more significant injury such as rotator cuff tear may be present if you are not improving rapidly. Such a an injury may require further evaluation such as MRI at the discretion of your primary care provider. Return to care if you have worsening symptoms despite following these instructions. All discharge instructions reviewed with patient and/or family. Voiced understanding. Copy Copies To 1: LAMBERTCOLT VALENCIA JOSHUA T MD May 30, 2023 10:46
--- NOTE | 2023-05-30 10:54 | Diagnostic Imaging Report ---
INDICATION: Fall, pain. EXAMINATION: Right shoulder, 3 views, on 05/30/2023. FINDINGS: No fractures or dislocations. Joint space is maintained. Chest port on the right incidentally noted. Visualized lung is clear. IMPRESSION: No acute process. Dictated by: Dictated on workstation # [id number]
[2023-05-30] MEDS ORDERED: IBUPROFEN 200 MG TABLET PO ONE (11:30)
[2023-05-30 11:47] VITALS: BP 127/93
== END 2023-05-30 11:51 | disposition home or self-care (01) ==
LOC: EDUNIT# 10:05 → ER 10:06
DX: S49.91XA Unspecified injury of right shoulder and upper arm, initial encounter (principal); E10.8 Type 1 diabetes mellitus with unspecified complications; F17.290 Nicotine dependence, other tobacco product, uncomplicated; Z91.040 Latex allergy status; W10.8XXA Fall (on) (from) other stairs and steps, initial encounter
CPT/HCPCS: 73030

== ENCOUNTER 2023-06-26 01:58 | Observation (INO) | payer BC, MEDICAID ==
[~2023-06-26] VITALS: Ht 175.3 cm; Wt 82.3 kg
[2023-06-26] MEDS ORDERED: NS IV 1000 ML 1,000 ML IV SCH ×2 (02:15→04:45)
--- NOTE | 2023-06-26 02:26 | ED General ---
General Stated Complaint: HIGH BLOOD SUGAR -197,DEHYDRATED Source of Information: Patient, Old Records History of Present Illness Date Seen by Provider: Jun 26, 2023 Time Seen by Provider: 02:15 Initial Comments PT ARRIVES VIA POV C/O ELEVATED BLOOD SUGAR SINCE YESTERDAY--PT IS TYPE 1 DIABETIC BLOOD SUGARS HAVE FREQUENTLY BEEN TOO HIGH TO READ--PT'S GLUCOMETER GOES UP TO 600 HER LOWEST READING WAS 45 MINUTES AGO, AND WAS 197 PT HAS HAD NAUSEA AND VOMITED X 4-5 NO DIARRHEA NO ABDOMINAL PAIN NO FEVER IS HAVING URINARY FREQUENCY STATES SHE FEELS DEHYDRATED C/O LOW BACK PAIN LMP 1 MONTH AGO, NORMAL, NO CONTROL PT NO LONGER HAS AN INSULIN PUMP OR C.G.M. SHE CURRENTLY TAKES LANTUS 20 UNITS IN AM AND 20 UNITS IN PM, ALONG WITH A SLIDING SCALE REGULAR INSULIN. PT HAS HAD A MULTITUDE OF VISITS HERE FOR DKA/DIABETES RELATED ISSUES SHE HAS NOT FOLLOWED UP WITH [facility] "FOR A COUPLE OF MONTHS" SHE HAS NOT FOLLOWED UP WITH [facility] SINCE HER LAST ADMIT. PCP: DR. LAMBERT, [facility] Allergies and Home Medications Allergies Coded Allergies: bismuth subsalicylate (Verified Allergy, Unknown, 08/29/22) latex (Unverified Allergy, Unknown, 01/09/23) Patient Home Medication List Home Medication List Reviewed: Yes Acetaminophen (Tylenol Extra Strength) 500 Mg Tablet, 1,000 MG PO Q8H PRN for PAIN-MILD (1-4), (Reported) Entered as Reported by: COLT BOURNE on 02/28/23 1150 Bupropion HCl (Bupropion HCl) 75 Mg Tablet, 75 MG PO BID, (Reported) Entered as Reported by: COLT BOURNE on 02/28/23 1150 Ibuprofen (Ibuprofen) 200 Mg Tablet, 400 MG PO Q8H PRN for PAIN-MILD (1-4), (Rep orted) Entered as Reported by: COLT BOURNE on 01/10/23 1134 Insulin Glargine,Hum.rec.anlog (Lantus Solostar) 100 Unit/Ml (3 Ml) Insuln.pen, 20 UNIT SQ BID Prescribed by: JOSIE SMYTH on 05/18/23 1054 Insulin Lispro (Insulin Lispro) 100 Unit/Ml Vial, UNIT SQ AC, (Reported) Entered as Reported by: COLT BOURNE on 04/02/23 0943 Insulin Lispro (Humalog Kwikpen) 100 Unit/Ml Insuln.pen, 10 UNIT SQ AC Prescribed by: JOSIE SMYTH on 05/18/23 1054 Review of Systems Review of Systems Constitutional: no symptoms reported Respiratory: no symptoms reported Cardiovascular: no symptoms reported Gastrointestinal: see HPI Genitourinary: see HPI LMP: May 27, 2023 Musculoskeletal: see HPI, back pain Skin: no symptoms reported Psychiatric/Neurological: No Symptoms Reported Hematologic/Lymphatic: No Symptoms Reported Immunological/Allergic: no symptoms reported Past Paoewhx-Ukmhdj-Qdnzba Hx Patient Social History Tobacco Use?: No Substance use?: Yes Substance type: Marijuana Additional substance use comme: IN PAST Alcohol Use?: No Immunizations Up To Date Tetanus Booster (TDap): Less than 5yrs PED Vaccines UTD: Yes First/Initial COVID19 Vaccinat: APR 2021 Second COVID19 Vaccination [place]: MAY 2021 Third COVID19 Vaccination Date: APR 2021 Seasonal Allergies Seasonal Allergies: No Past Medical History Surgery/Hospitalization HX: DM, PORT PLACEMENT Surgeries: Yes (RIGHT PORT) Respiratory: No Currently Using CPAP: No Currently Using BIPAP: No Cardiac: Yes (TACHYCARDIA) Palpitations Neurological: No Reproductive Disorders: No Female Reproductive Disorders: Denies Sexually Transmitted Disease: No HIV/AIDS: No Genitourinary: Yes Bladder Infection Gastrointestinal: Yes (CANNABIS HYPEREMESIS; CHRONIC 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 DX AGE 12) Diabetes, Insulin dep HEENT: No Loss of Vision: Denies Hearing Impairment: Denies Cancer: No Psychosocial: Yes Anxiety, Depression Integumentary: No Blood Disorders: No Adverse Reaction/Blood Tranf: No Family Medical History No Pertinent Family Hx, Other Conditions/Hx DELIVERED 12/07/22--STILLBORN AT 29/30 WEEKS GESTATION. Physical Exam Vital Signs Vital Signs - First Documented 06/26/23 02:09 Temp 36.1 Pulse 115 Resp 16 B/P (MAP) 129/85 (100) Pulse Ox 98 O2 Delivery Room Air Capillary Refill : Height, Weight, BMI Height: 5'9.00" Weight: 255lbs. 0oz. 115.525983pl; 25.00 BMI Method:Stated General Appearance: No Apparent Distress, WD/WN, Other (FLAT AFFECT. 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 Skin: Normal Color, Warm/Dry Focused Exam Lactate Level 06/26/23 02:20: Lactic Acid Level 1.68 Lactic Acid Level Laboratory Tests Test 06/26/23 02:20 Lactic Acid Level 1.68 MMOL/L (0.50-2.00) Procedures/Interventions Date of ETT Placement: Feb 18, 2021 Time of ETT Placement: 1432 Progress/Results/Core Measures Suspected Sepsis SIRS Temperature: Pulse: Respiratory Rate: Laboratory Tests 06/26/23 02:20: White Blood Count 5.7 Blood Pressure / Mean: 06/26/23 02:20: Lactic Acid Level 1.68 Laboratory Tests 06/26/23 02:20: Creatinine 1.04, Platelet Count 399, Total Bilirubin 0.3 Results/Orders Lab Results Laboratory Tests Test 06/26/23 02:20 06/26/23 02:32 06/26/23 02:48 Range/Units White Blood Count 5.7 4.3-11.0 10^3/uL Red Blood Count 4.34 3.80-5.11 10^6/uL Hemoglobin 11.0 L 11.5-16.0 g/dL Hematocrit 35 35-52 % Mean Corpuscular Volume 81 80-99 fL Mean Corpuscular Hemoglobin 25 25-34 pg Mean Corpuscular Hemoglobin Concent 31 L 32-36 g/dL Red Cell Distribution Width 15.3 H 10.0-14.5 % Platelet Count 399 130-400 10^3/uL Mean Platelet Volume 10.5 9.0-12.2 fL Immature Granulocyte % (Auto) 0 % Neutrophils (%) (Auto) 54 42-75 % Lymphocytes (%) (Auto) 35 12-44 % Monocytes (%) (Auto) 9 0-12 % Eosinophils (%) (Auto) 1 0-10 % Basophils (%) (Auto) 0 0-10 % Neutrophils # (Auto) 3.1 1.8-7.8 10^3/uL Lymphocytes # (Auto) 2.0 1.0-4.0 10^3/uL Monocytes # (Auto) 0.5 0.0-1.0 10^3/uL Eosinophils # (Auto) 0.1 0.0-0.3 10^3/uL Basophils # (Auto) 0.0 0.0-0.1 10^3/uL Immature Granulocyte # (Auto) 0.0 0.0-0.1 10^3/uL Venous Blood pH 7.35 7.31-7.41 Venous Blood Partial Pressure CO2 32 L 40-52 MMHG Venous Blood HCO3 17 L 22-28 MMOL/L Sodium Level 137 135-145 MMOL/L Potassium Level 3.8 3.6-5.0 MMOL/L Chloride Level 103 98-107 MMOL/L Carbon Dioxide Level 16 L 21-32 MMOL/L Anion Gap 18 H 5-14 MMOL/L Blood Urea Nitrogen 10 7-18 MG/DL Creatinine 1.04 0.60-1.30 MG/DL Estimat Glomerular Filtration Rate 79 BUN/Creatinine Ratio 10 Glucose Level 313 H 70-105 MG/DL Lactic Acid Level 1.68 0.50-2.00 MMOL/L Calcium Level 9.0 8.5-10.1 MG/DL Corrected Calcium 9.5 8.5-10.1 MG/DL Magnesium Level 1.8 1.6-2.4 MG/DL Total Bilirubin 0.3 0.1-1.0 MG/DL Aspartate Amino Transf (AST/SGOT) 39 H 5-34 U/L Alanine Aminotransferase (ALT/SGPT) 26 0-55 U/L Alkaline Phosphatase 197 H 40-136 U/L Total Protein 6.6 6.4-8.2 GM/DL Albumin 3.4 3.2-4.5 GM/DL Amylase Level 104 25-125 U/L Lipase 44 8-78 U/L Beta-Hydroxybutyrate (Chem panel) 4.10 H 0.00-0.27 MMOL/L Serum Test, Qualitative NEGATIVE NEGATIVE Glucometer 313 H 70-110 MG/DL Urine Color YELLOW Urine Clarity SL CLOUDY Urine pH 5.5 5-9 Urine Specific [place] >=1.030 1.016-1.022 Urine Protein 1+ H NEGATIVE Urine Glucose (UA) 2+ H NEGATIVE Urine Ketones 4+ H NEGATIVE Urine Nitrite NEGATIVE NEGATIVE Urine Bilirubin 2+ H NEGATIVE Urine Urobilinogen 0.2 < = 1.0 MG/DL Urine Leukocyte Esterase 1+ H NEGATIVE Urine RBC (Auto) 2+ H NEGATIVE Urine RBC RARE /HPF Urine WBC 10-25 H /HPF Urine Squamous Epithelial Cells 2-5 /HPF Urine Crystals NONE /LPF Urine Bacteria NEGATIVE /HPF Urine Casts PRESENT /LPF Urine Hyaline Casts 0-2 H /LPF Urine Granular Casts 0-2 H /LPF Urine Mucus NEGATIVE /LPF Urine Culture Indicated YES Urine Opiates Screen NEGATIVE NEGATIVE Urine Oxycodone Screen NEGATIVE NEGATIVE Urine Methadone Screen NEGATIVE NEGATIVE Urine Propoxyphene Screen NEGATIVE NEGATIVE Urine Barbiturates Screen NEGATIVE NEGATIVE Ur Tricyclic Antidepressants Screen NEGATIVE NEGATIVE Urine Phencyclidine Screen NEGATIVE NEGATIVE Urine Amphetamines Screen NEGATIVE NEGATIVE Urine Methamphetamines Screen NEGATIVE NEGATIVE Urine Benzodiazepines Screen NEGATIVE NEGATIVE Urine Cocaine Screen NEGATIVE NEGATIVE Urine Cannabinoids Screen NEGATIVE NEGATIVE My Orders Orders - LADONNA RANGEL DO Accucheck Stat ONCE (06/26/23 02:14) Ed Iv/Invasive Line Start (06/26/23 02:14) Monitor-Rhythm Ecg Trace Only (06/26/23 02:14) Amylase (06/26/23 02:14) Cbc And Automated Diff (06/26/23 02:14) Comprehensive Metabolic Panel (06/26/23 02:14) Drug Screen Stat (Urine) (06/26/23 02:14) Hcg,Qualitative Serum (06/26/23 02:14) Magnesium (06/26/23 02:14) Ua Culture If Indicated (06/26/23 02:14) Ed Iv/Invasive Line Start (06/26/23 02:14) Ns Iv 1000 Ml (Ns Iv 1000 Ml) (06/26/23 02:15) Beta Hydroxybutyrate (06/26/23 02:14) Hemoglobin A1c (06/26/23 02:14) Venous Blood Gas (06/26/23 02:14) Lactic Acid Analyzer (06/26/23 02:15) Lipase (06/26/23 02:15) Ketorolac Injection (Ketorolac Injection (06/26/23 03:15) Urine Culture (06/26/23 02:48) Ed Admission (Communication) (06/26/23 03:45) Medications Given in ED Current Medications Medications Dose Ordered Sig/Thierno Route Start Time Stop Time Status Last Admin Dose Admin Ketorolac Tromethamine 30 mg ONCE ONCE IVP 06/26/23 03:15 06/26/23 03:16 DC 06/26/23 03:20 30 MG Vital Signs/I&O 06/26/23 02:09 Temp 36.1 Pulse 115 Resp 16 B/P (MAP) 129/85 (100) Pulse Ox 98 O2 Delivery Room Air Capillary Refill : Progress Note : Progress Note VITALS ON ARRIVAL: TEMP 36.1=97.0, HR 115, RR 16, BP 129/85, O2 SAT 98% ON ROOM AIR GIVEN: -IV FLUIDS -TORADOL LABS: -CBC NORMAL -CMP WITH NORMAL ELECTROLYTES, ANION GAP 18, CO2 16, GLU 313 -LACTIC ACID 1.68 -BETA HYDROXYBUTYRATE 4.10 -VENOUS BLOOD GAS PH 7.35, CO2 32, HCO3 17 -UA WITH 1+ PROTEIN, 2+ GLUCOSE, 4+ KETONES, 1+ LEUKOCYTES, 10-25 WBC, NEGATIVE BACTERIA -UDS NEGATIVE -HCG NEGATIVE NO VOMITING DURING ER STAY NAUSEA IMPROVED WITHOUT TREATMENT BACK PAIN A LITTLE IMPROVED WITH TORADOL NO DETERIORATION IN PT'S CONDITION DURING ER STAY VITALS STABLE, HR DOWN DISCUSSED TEST RESULTS, NEED FOR ADMIT AND PT IS AGREEABLE TO PLAN REVIEWED PRIOR RECORDS, INCLUDING ER VISITS, ADMITS/H&P'S/CONSULTS/DISCHARGE SUMMARY, TESTS/PROCEDURES Departure Communication (Admissions) 0322--SPOKE WITH DR. SMYTH, ACCEPTS PT FOR ADMIT. SHE WILL DO ADMIT ORDERS 032--REPORT TO E-ICU PHYSICIAN Impression Primary Impression: DKA (diabetic ketoacidosis) Additional Impression: Uncontrolled type 1 diabetes mellitus Disposition: ADMITTED INPATIENT Condition: Stable Admissions Decision to Admit Reason: Admit from ER (General) Decision to Admit/Date: Jun 26, 2023 Time/Decision to Admit Time: 03:25 Departure-Patient Inst. Referrals: COLT LAMBERT DO (PCP/Family) Primary Care Physician LADONNA RANGEL DO Jun 26, 2023 02:26
[2023-06-26 02:38] LABS: BASOPHILS % (AUTO) 0 % (0-10); EOSINOPHILS # (AUTO) 0.1 10^3/uL (0.0-0.3); EOSINOPHILS % (AUTO) 1 % (0-10); HEMATOCRIT 35 % (35-52); LYMPHOCYTES % (AUTO) 35 % (12-44); MEAN CORPUSCULAR HEMOGLOBIN 25 pg (25-34); MEAN CORPUSCULAR HGB CONC 31 g/dL (32-36); MEAN CORPUSCULAR VOLUME 81 fL (80-99); MEAN PLATELET VOLUME 10.5 fL (9.0-12.2); MONOCYTES # (AUTO) 0.5 10^3/uL (0.0-1.0); MONOCYTES % (AUTO) 9 % (0-12); NEUTROPHILS # (AUTO) 3.1 10^3/uL (1.8-7.8); NEUTROPHILS % (AUTO) 54 % (42-75); PLATELET COUNT 399 10^3/uL (130-400); WHITE BLOOD COUNT 5.7 10^3/uL (4.3-11.0)
[2023-06-26 02:47] LABS: ALBUMIN 3.4 GM/DL (3.2-4.5); POTASSIUM 3.8 MMOL/L (3.6-5.0)
[2023-06-26 02:49] LABS: TOTAL PROTEIN 6.6 GM/DL (6.4-8.2)
[2023-06-26 02:51] LABS: BILIRUBIN,TOTAL 0.3 MG/DL (0.1-1.0)
[2023-06-26 02:53] LABS: CREATININE SERUM 1.04 MG/DL (0.60-1.30)
[2023-06-26 02:56] LABS: MAGNESIUM 1.8 MG/DL (1.6-2.4)
[2023-06-26 03:15] LABS: AMPHETAMINE SCREEN, URINE NEGATIVE (NEGATIVE); BARBITURATE SCREEN URINE NEGATIVE (NEGATIVE); CANNABINOID SCREEN, URINE NEGATIVE (NEGATIVE); COCAINE SCREEN URINE NEGATIVE (NEGATIVE); METHADONE STAT NEGATIVE (NEGATIVE); OPIATE SCREEN URINE NEGATIVE (NEGATIVE); OXYCODONE STAT NEGATIVE (NEGATIVE); PROPOXYPHENE STAT NEGATIVE (NEGATIVE); TRICYCLIC ANTIDEPRESSANTS SCRE NEGATIVE (NEGATIVE)
[2023-06-26] MEDS ORDERED: KETOROLAC INJ 30 MG/ML VIAL IVP ONE (03:15)
[2023-06-26 03:16] LABS: BILIRUBIN,URINE 2+ (NEGATIVE); CLARITY,URINE SL CLOUDY; COLOR,URINE YELLOW; GLUCOSE, URINE (UA) 2+ (NEGATIVE); KETONES,URINE 4+ (NEGATIVE); LEUKOCYTE ESTERASE ,URINE 1+ (NEGATIVE); NITRITE,URINE NEGATIVE (NEGATIVE); PH,URINE 5.5 (5-9); PROTEIN,URINE 1+ (NEGATIVE)
[2023-06-26 03:17] LABS: BACTERIA,URINE NEGATIVE /HPF; GRANULAR CASTS,URINE 0-2 /LPF; HYALINE CASTS, URINE 0-2 /LPF; RBC,URINE RARE /HPF
[2023-06-26 04:41] VITALS: BP 129/85
[2023-06-26] MEDS ORDERED: diphenhydrAMINE 25 MG TABLET PO PRN (04:45)
[2023-06-26] MEDS ORDERED: CALCIUM CARBONATE 500 MG CHEW TABLET PO PRN (04:45)
[2023-06-26] MEDS ORDERED: ANTACID SUSPENSION 30 ML UDC PO PRN (04:45)
[2023-06-26] MEDS ORDERED: ONDANSETRON 4 MG ORAL DISSOLVE TABLET PO PRN (04:45)
[2023-06-26] MEDS ORDERED: HYDROmorphone INJECTION 2 MG/ML VIAL IV PRN (04:45)
[2023-06-26] MEDS ORDERED: MELATONIN 3 MG TABLET PO PRN (04:45)
[2023-06-26] MEDS ORDERED: LACTULOSE SYRUP 10GM/15ML 30ML UDC PO PRN (04:45)
[2023-06-26] MEDS ORDERED: NS IV 500 ML 500 ML IV PRN (04:45)
[2023-06-26] MEDS ORDERED: ONDANSETRON INJECTION 4 MG/2 ML (SDV) IV PRN (04:45)
[2023-06-26] MEDS ORDERED: ACETAMINOPHEN 325 MG TABLET PO PRN (04:45)
[2023-06-26] MEDS ORDERED: diphenhydrAMINE INJ 50 MG/ML VIAL IVP PRN (04:45)
[2023-06-26] MEDS ORDERED: BISACODYL 10 MG SUPPOSITORY PR PRN (04:45)
[2023-06-26] MEDS ORDERED: RT-Ipratropium/Albuterol NEB 3 ML VIAL INH PRN (04:45)
[2023-06-26] MEDS ORDERED: MILK OF MAGNESIA 400 MG/5 ML 30 ML UDC PO PRN (04:45)
[2023-06-26] MEDS: oxyCODONE IMMEDIATE RELEASE 5 MG TABLET PO PRN ×3 (04:59→19:25)
[2023-06-26] MEDS: D5 1/2 NS 1,000 ML IV 1,000 ML IV SCH ×3 (05:28→13:36)
[2023-06-26] MEDS: POTASSIUM CL 10MEQ/50ML IVPB 50 ML IV SCH ×9 (05:28→14:21)
[2023-06-26] MEDS: 1/2 NS IV SOLUTION 1000 ML 1,000 ML IV SCH ×4 (05:36→15:48)
[2023-06-26] MEDS: MAGNESIUM 1 GM/100 ML IVPB 100 ML IV SCH (06:05)
[2023-06-26] MEDS: POTASSIUM CHLORIDE 20 MEQ TABLET PO SCH (06:05)
[2023-06-26 06:15] LABS: CALCIUM 8.3 MG/DL (8.5-10.1); CREATININE SERUM 0.93 MG/DL (0.60-1.30); POTASSIUM 3.4 MMOL/L (3.6-5.0)
[2023-06-26] MEDS: DOCUSATE SODIUM 100 MG CAPSULE PO SCH ×2 (09:00→19:22)
[2023-06-26] MEDS: SENNOSIDES 8.6 MG TABLET PO SCH ×2 (09:00→19:22)
--- NOTE | 2023-06-26 09:29 | Tele-ICU Progress Note ---
Subjective Date Seen by a Provider: Jun 26, 2023 Time Seen by a Provider: 09:29 Subjective/Events-last exam (Tele-ICU Physician , consultation as per request of PCP Service provided via interactive audio and video telecommunications E-CARE system to a patient admitted to ICU bed in [facility]. Available chart/ vitals / labs / Images reviewed H&P is from ER notes Patient's information available about PMH, Shx, Fhx allergy reviewed inEMR. ROS as per chart and RN report Now in ICU, hemodynamically stable Video assessment done using teleICU camera, rest of exam as per RN Discussed with RN. A/P DKA -Unclear precipitant, does not have insulin pump anymore *Insulin drip, continue to monitor for resolution of acidosis, AG and electrolytes. Continue hydration. UA with possible UTI - as per PCP Plans in collaboration with bedside consultants and IM MDs. Discussed with RN to reach out if any questions or concerns A total of 5 minutes of critical care time was devoted to this patient today, required to treat and/or prevent further deterioration of critical care condi tion ( as above ) . I am remotely monitoring this patient from another state. I am unable to do the bedside exam, and history/physical and pertinent information is taken from other notes in the computer and bedside staff. . Sepsis Event Evaluation Height, Weight, BMI Height: 5'9.00" Weight: 255lbs. 0oz. 115.269880vw; 26.78 BMI Method:Stated Focused Exam Lactate Level 06/26/23 02:20: Lactic Acid Level 1.68 Exam Exam Patient acknowledged, consented, and participated in this virtual visit which was conducted using real time audio/video Vital Signs Date Time Temp Pulse Resp B/P (MAP) Pulse Ox O2 Delivery O2 Flow Rate FiO2 06/26/23 09:00 101 17 126/71 (89) 98 Room Air 06/26/23 08:00 107 13 128/72 (90) 97 Room Air 06/26/23 07:12 94 06/26/23 07:00 96 9 119/82 (94) 98 Room Air 06/26/23 06:11 98 Room Air 06/26/23 06:00 102 14 126/101 (109) 98 Room Air 06/26/23 05:00 112 16 136/90 (105) 100 Room Air 06/26/23 04:45 93 20 133/80 (97) 98 Room Air 06/26/23 04:41 36.1 115 98 21 06/26/23 04:30 95 06/26/23 04:30 92 20 141/96 (111) 99 Room Air 06/26/23 02:09 36.1 115 16 129/85 (100) 98 Room Air I & O 06/26/23 07:00 Intake Total 1500 ml Output Total 300 ml Balance 1200 ml Height & Weight Height: 5'9.00" Weight: 255lbs. 0oz. 115.360341xu; 26.78 BMI Method:Stated General Appearance: No Apparent Distress, WD/WN, Other (FLAT AFFECT. 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
[2023-06-26] MEDS: ENOXAPARIN 40 MG/0.4 ML SYRINGE SC SCH (10:21)
[2023-06-26 10:36] LABS: CALCIUM 7.7 MG/DL (8.5-10.1); CREATININE SERUM 0.88 MG/DL (0.60-1.30); POTASSIUM 3.6 MMOL/L (3.6-5.0)
--- NOTE | 2023-06-26 11:48 | History & Physical-Hospitalist ---
History of Present Illness HPI/Chief Complaint Chief complaint: DKA HPI: This is a 22-year-old female with recurrent DKA hospital stays who presents once again in DKA. Insulin drip had been maintained overnight and she is now doing well so we will move her to the fourth floor. Source: patient Exam Limitations: no limitations Date Seen 06/26/23 Time Seen by a Provider: 11:00 Attending Physician Carlos Lyn DO PCP Admitting Physician: Patito Diamond DO Attending Physician: Patito Diamond DO Referring Physician Date of Admission Jun 26, 2023 at 04:14 Home Medications & Allergies Home Medications Reviewed patient Home Medication Reconciliation performed by pharmacy medication reconciliations collection systems technician and/or nursing. Patients Allergies have been reviewed. Allergies Allergies Coded Allergies bismuth subsalicylate (Verified Allergy, Unknown, 08/29/22) latex (Unverified Allergy, Unknown, 01/09/23) Past Kxehtru-Nvxizv-Sgantw Hx Patient Social History Marrital Status: single Employed/Student: unemployed Tobacco Use?: No Smoking Status: Never a Smoker Use of E-Cig and/or Vaping dev: Yes E-Cig or Vaping type used: Nicotine Use of E-Cig and/or Vaping Tom: Current Everyday User Substance use?: No Substance type: Marijuana Additional substance use comme: IN PAST Alcohol Use?: No Pt feels they are or have been: No Immunizations Up To Date Date of Influenza Vaccine: Jul 25, 2022 First/Initial COVID19 Vaccinat: APR 2021 Second COVID19 Vaccination [place]: MAY 2021 Tetanus Booster (TDap): More Than 5 Years Hepatitis A: No Hepatitis B: No PED Vaccines UTD: Yes Seasonal Allergies Seasonal Allergies: No Current Status status: No status: No Advance Directives: No Communicates: Verbally Primary Language: Jordanian Preferred Spoken Language: Jordanian Is interpretation needed?: No Implanted or Applied Medical D: Port-a-cath Past Medical History Currently Using CPAP: No Currently Using BIPAP: No Palpitations Sexually Transmitted Disease: No HIV/AIDS: No Bladder Infection Diabetes, Insulin dep Loss of Vision: Denies Hearing Impairment: Denies Anxiety, Depression Blood Disorders: No Adverse Reaction/Blood Tranf: No PMHx: Type I DM Depression SurgHx: Denies Family Medical History No Pertinent Family Hx, Other Conditions/Hx DELIVERED 12/07/22--STILLBORN AT 29/30 WEEKS GESTATION. Review of Systems Constitutional: see HPI Physical Exam Physical Exam Vital Signs Vital Signs - First Documented 06/26/23 06/26/23 02:09 04:41 Temp 36.1 Pulse 115 Resp 16 B/P (MAP) 129/85 (100) Pulse Ox 98 O2 Delivery Room Air FiO2 21 Capillary Refill : Height, Weight, BMI Height: 5'9.00" Weight: 255lbs. 0oz. 115.219597mi; 26.78 BMI Method:Stated General Appearance: No Apparent Distress Respiratory: Chest Non Tender, Lungs Clear, Normal Breath Sounds, No Accessory Muscle Use, No Respiratory Distress Cardiovascular: Regular Rate, Rhythm, No Edema, No Gallop, No JVD, No Murmur, Normal Peripheral Pulses Neurologic/Psychiatric: Alert, Oriented x3, No Motor/Sensory Deficits, Normal Mood/Affect Results Results/Procedures Labs Laboratory Tests 06/26/23 02:20 06/26/23 05:30 06/26/23 10:05 06/26/23 13:40 Patient resulted labs reviewed. Assessment/Plan Admission Diagnosis Assessment: DKA Plan: Insulin drip DC moved to fourth floor Admission Status: Observation PATITO DIAMOND DO Jun 26, 2023 11:48
[2023-06-26] MEDS: inSUlin DETERMIR 1 UNIT/0.01 ML (CHARGE PER UNIT) SQ SCH ×2 (13:34→20:44)
[2023-06-26 14:13] LABS: CALCIUM 7.5 MG/DL (8.5-10.1); CREATININE SERUM 0.8 MG/DL (0.60-1.30); POTASSIUM 3.6 MMOL/L (3.6-5.0)
[2023-06-26] MEDS ORDERED: INSU100I64 SC (14:38)
[2023-06-26] MEDS ORDERED: INSU100I10 SQ (14:38)
[2023-06-26] MEDS ORDERED: FERR-84 PO (14:38)
[2023-06-26] MEDS: inSUlin ASPART 1 UNIT/0.01 ML (PER UNIT) SC SCH ×2 (15:48→20:28)
[2023-06-26 20:22] VITALS: BP 136/89
[2023-06-26 23:03] VITALS: BP 153/104
[2023-06-27] MEDS: oxyCODONE IMMEDIATE RELEASE 5 MG TABLET PO PRN (00:41)
[2023-06-27 04:01] VITALS: BP 138/87
[2023-06-27 04:17] LABS: BASOPHILS % (AUTO) 1 % (0-10); EOSINOPHILS # (AUTO) 0.1 10^3/uL (0.0-0.3); EOSINOPHILS % (AUTO) 2 % (0-10); HEMATOCRIT 32 % (35-52); HEMOGLOBIN 10.2 g/dL (11.5-16.0); LYMPHOCYTES # (AUTO) 2.2 10^3/uL (1.0-4.0); LYMPHOCYTES % (AUTO) 52 % (12-44); MEAN CORPUSCULAR HEMOGLOBIN 25 pg (25-34); MEAN CORPUSCULAR HGB CONC 32 g/dL (32-36); MEAN CORPUSCULAR VOLUME 81 fL (80-99); MONOCYTES # (AUTO) 0.3 10^3/uL (0.0-1.0); MONOCYTES % (AUTO) 7 % (0-12); NEUTROPHILS # (AUTO) 1.7 10^3/uL (1.8-7.8); NEUTROPHILS % (AUTO) 39 % (42-75); PLATELET COUNT 306 10^3/uL (130-400); WHITE BLOOD COUNT 4.3 10^3/uL (4.3-11.0)
[2023-06-27 04:36] LABS: ALBUMIN 3.1 GM/DL (3.2-4.5); BILIRUBIN,TOTAL 0.2 MG/DL (0.1-1.0); CALCIUM 8.4 MG/DL (8.5-10.1); CREATININE SERUM 0.83 MG/DL (0.60-1.30); POTASSIUM 4.4 MMOL/L (3.6-5.0)
[2023-06-27] MEDS: POTASSIUM CHLORIDE 20 MEQ TABLET PO SCH (04:39)
[2023-06-27] MEDS: POTASSIUM CL 10MEQ/50ML IVPB 50 ML IV SCH (04:39)
[2023-06-27] MEDS: MAGNESIUM 1 GM/100 ML IVPB 100 ML IV SCH ×4 (04:45→06:33)
[2023-06-27] MEDS: inSUlin ASPART 1 UNIT/0.01 ML (PER UNIT) SC SCH ×3 (04:54→16:27)
[2023-06-27 07:40] VITALS: BP 127/86
--- NOTE | 2023-06-27 09:24 | Progress Note ---
LORENA CROOK MD,RESIDENT 06/27/23 6824: Progress Note Simi is a 22 female with a medical history significant for uncontrolled T1DM with frequent admissions for hyperglycemia/DKA, who presented to the ED in DKA. She was admitted to the ICU and maintained on insulin gtt. She was eventually transitioned to long-acting insulin with a sliding scale insulin when her anion gap closed and her bicarb increased. She was transferred out of the ICU to floor status on 06/26. She remained stable on the floor and ready for discharge on 06/27. JOSIE SMYTH DO 06/27/232106: Progress Note I personally performed the arredondo portions of the visit, discussed case with resident and concur with resident documentation of history, physical exam, assessment and treatment plan unless otherwise noted. LORENA CROOK MD,RESIDENT Jun 27, 2023 09:24 JOSIE SMYTH DO Jun 27, 2023 21:07
[2023-06-27] MEDS: SENNOSIDES 8.6 MG TABLET PO SCH (09:30)
[2023-06-27] MEDS: DOCUSATE SODIUM 100 MG CAPSULE PO SCH (09:30)
[2023-06-27] MEDS: ENOXAPARIN 40 MG/0.4 ML SYRINGE SC SCH (09:31)
[2023-06-27 11:24] VITALS: BP 125/85
[2023-06-27 16:09] VITALS: BP 146/89
--- NOTE | 2023-06-27 16:37 | Discharge Summary ---
LORENA CROOK MD,RESIDENT 06/27/23 1637: Discharge Summary Hospital Course Problems/Dx: (1) Type 1 diabetes mellitus Status: Chronic (2) DKA (diabetic ketoacidosis) Status: Acute Hospital Course Date of Admission: Jun 26, 2023 at 04:14 Admission Diagnosis : Family Physician/Provider: Carlos Lyn DO Date of Discharge: 06/27/23 Discharge Diagnosis: DKA Hospital Course: Simi is a 22 female with a medical history significant for uncontrolled T1DM with frequent admissions for hyperglycemia/DKA, who presented to the ED in DKA. She was admitted to the ICU and maintained on insulin gtt. She was eventually transitioned to long-acting insulin with a sliding scale insulin when her anion gap closed and her bicarb increased. She was transferred out of the ICU to floor status on 06/26. She remained stable on the floor and ready for discharge on 06/27. Labs and Pending Lab Test: Laboratory Tests 06/26/23 20:10: Glucometer 160H 06/27/23 04:10: White Blood Count 4.3, Red Blood Count 4.02, Hemoglobin 10.2L, Hematocrit 32L, Mean Corpuscular Volume 81, Mean Corpuscular Hemoglobin 25, Mean Corpuscular Hemoglobin Concent 32, Red Cell Distribution Width 15.1H, Platelet Count 306, Mean Platelet Volume 10.0, Immature Granulocyte % (Auto) 0, Neutrophils (%) (Auto) 39L, Lymphocytes (%) (Auto) 52H, Monocytes (%) (Auto) 7, Eosinophils (%) (Auto) 2, Basophils (%) (Auto) 1, Neutrophils # (Auto) 1.7L, Lymphocytes # (Auto) 2.2, Monocytes # (Auto) 0.3, Eosinophils # (Auto) 0.1, Basophils # (Auto) 0.0, Immature Granulocyte # (Auto) 0.0, Sodium Level 137, Potassium Level 4.4, Chloride Level 105, Carbon Dioxide Level 18L, Anion Gap 14, Blood Urea Nitrogen 8, Creatinine 0.83, Estimat Glomerular Filtration Rate 103, BUN/Creatinine Ratio 10, Glucose Level 298H, Calcium Level 8.4L, Corrected Calcium 9.1, Magnesium Level 1.7, Total Bilirubin 0.2, Aspartate Amino Transf (AST/SGOT) 82H, Alanine Aminotransferase (ALT/SGPT) 30, Alkaline Phosphatase 179H, Total Protein 6.0L, Albumin 3.1L, Beta-Hydroxybutyrate (Chem panel) 0.31H 06/27/23 10:36: Glucometer 222H 06/27/23 16:12: Glucometer 375H Microbiology 06/26/23 MRSA Screen - Final, Complete MRSA not isolated 06/26/23 Urine Culture - Final, Complete Lactobacillus jensenii Strep agalactiae Group B Home Meds Active Reported Iron (Ferrous Sulfate) 325 Mg (65 Mg Iron) Tablet 325 Mg PO DAILY Lantus Solostar (Insulin Glargine,Hum.rec.anlog) 100 Unit/Ml (3 Ml) Insuln.pen 20 Unit SQ BID Insulin Lispro Kwikpen U-100 (Insulin Lispro) 100 Unit/Ml Insuln.pen Units SC AC Tylenol Extra Strength (Acetaminophen) 500 Mg Tablet 1,000 Mg PO Q8H PRN Bupropion HCl 75 Mg Tablet 75 Mg PO BID LAST FILLED 02-22-2023 #180/90 DAY SUPPLY Ibuprofen 200 Mg Tablet 400 Mg PO Q8H PRN Assessment/Pt Instructions DKA Follow-up with your PCP in 7-14d after discharge. Discharge Instructions Discharge Diet: No Restrictions Activity as Tolerated: Yes Discharge Physical Examination Vital Signs Vital Signs Date Time Temp Pulse Resp B/P (MAP) Pulse Ox O2 Delivery O2 Flow Rate FiO2 06/27/23 16:09 36.2 117 17 146/89 (108) 97 Room Air 06/26/23 04:41 21 General Appearance: No Apparent Distress Respiratory: Lungs Clear, Normal Breath Sounds, No Accessory Muscle Use, No Respiratory Distress Cardiovascular: Regular Rate, Rhythm Gastrointestinal: Non Tender, Soft Neurologic/Psychiatric: Alert, Oriented x3, Normal Mood/Affect Allergies: Coded Allergies: bismuth subsalicylate (Verified Allergy, Unknown, 08/29/22) latex (Unverified Allergy, Unknown, 01/09/23) Discharge Summary Date of Admission Jun 26, 2023 at 04:14 Date of Discharge Admission Diagnosis Assessment: DKA Plan: Insulin drip DC moved to fourth floor Bridge to long-acting insulin JOSIE SMYTH DO 06/28/23 0447: Discharge Summary Hospital Course Was the Problem List Reviewed?: Yes Assessment/Pt Instructions I personally performed the arredondo portions of the visit, discussed case with resident and concur with resident documentation of history, physical exam, assessment and treatment plan unless otherwise noted. Discharge Planning: <30 minutes discharge planning Discharge Instructions Discharge Diet: ADA Diet Discharge Physical Examination General Appearance: No Apparent Distress, WD/WN Allergies: Coded Allergies: bismuth subsalicylate (Verified Allergy, Unknown, 08/29/22) latex (Unverified Allergy, Unknown, 01/09/23) LORENA CROOK MD,RESIDENT Jun 27, 2023 16:37 JOSIE SMYTH DO Jun 28, 2023 04:47
[2023-06-27 18:53] VITALS: BP 146/89
[2023-06-27] MEDS ORDERED: inSUlin DETERMIR 1 UNIT/0.01 ML (CHARGE PER UNIT) SQ SCH (21:00)
== END 2023-06-27 18:20 | disposition home or self-care (01) ==
LOC: EDUNIT# 01:58 → ER 02:02 → INTOOBSV 04:14 → ICU 04:14 → 4TH 15:54
PROVIDERS: ADMIT Internal Medicine; ATTEND Internal Medicine
DX: E10.10 Type 1 diabetes mellitus with ketoacidosis without coma (principal); F17.290 Nicotine dependence, other tobacco product, uncomplicated
CPT/HCPCS: 36415; 80048; 80053; 80306; 81000; 82010; 82150; 82805; 82947; 83036; 83605; 83690; 83735; 84703; 85025; 87081; 87088; 93041; 96361; 96366; 96372; 96374; 96375; 96376; G0378

== ENCOUNTER 2023-07-06 20:56 | Inpatient (IN) | payer BC, MEDICAID ==
[~2023-07-06] VITALS: Ht 175 cm; Wt 77.5 kg
[~2023-07-06 20:56] MED LIST changes: +INSU100I64 SC
--- NOTE | 2023-07-06 21:04 | ED General ---
General Chief Complaint: Glucose Problems Stated Complaint: HIGH BLOOD SUGAR/VOMITING Source of Information: Patient History of Present Illness Date Seen by Provider: Jul 06, 2023 Time Seen by Provider: 21:02 Initial Comments PT ARRIVES VIA POV C/O ELEVATED BLOOD SUGAR, WITH NAUSEA/VOMITING PT WITH TYPE 1 DIABETES, LONG HISTORY OF NON-COMPLIANCE WITH MULTITUDE OF ADMITS FOR DKA, LAST VISIT/ADMIT 06/26-06/27 FOR DKA NO MEDICATION OR DOSE CHANGES FROM LAST ADMIT PT STATES SHE BEGAN HAVING NAUSEA/VOMITING 1 HOUR AGO BLOOD SUGAR WAS 471 AT HOME, AND SHE TOOK 10 UNITS OF HUMALOG 45 MINUTES AGO SHE TAKES LANTUS IN AM AND PM SHE TOOK HER NORMAL 20 UNITS THIS MORNING, SHE HAS NOT TAKEN HER EVENING DOSE SHE TAKES A SLIDING SCALE OF HUMALOG DURING THE DAY PT STATES BLOOD SUGAR WAS IN THE 100'S THIS AM AT BREAKFAST, AND SHE TOOK 8 UNITS OF HUMALOG THIS AM BLOOD SUGAR AT LUNCH WAS 273, AND SHE TOOK 12 UNITS NO FEVER NO ABDOMINAL PAIN C/O BODY ACHES LMP--TODAY. PCP: RICK Allergies and Home Medications Allergies Coded Allergies: bismuth subsalicylate (Verified Allergy, Unknown, 08/29/22) latex (Unverified Allergy, Unknown, 01/09/23) Patient Home Medication List Home Medication List Reviewed: Yes Acetaminophen (Tylenol Extra Strength) 500 Mg Tablet, 1,000 MG PO Q8H PRN for PAIN-MILD (1-4), (Reported) Entered as Reported by: COLT BOURNE on 02/28/23 1150 Bupropion HCl (Bupropion HCl) 75 Mg Tablet, 75 MG PO BID, (Reported) Entered as Reported by: COLT BOURNE on 02/28/23 1150 Ferrous Sulfate (Iron) 325 Mg (65 Mg Iron) Tablet, 325 MG PO DAILY, (Reported) Entered as Reported by: COLT BOURNE on 06/26/23 1438 Ibuprofen (Ibuprofen) 200 Mg Tablet, 400 MG PO Q8H PRN for PAIN-MILD (1-4), (Reported) Entered as Reported by: COLT BOURNE on 01/10/23 1134 Insulin Glargine,Hum.rec.anlog (Lantus Solostar) 100 Unit/Ml (3 Ml) Insuln.pen, 20 UNIT SQ BID, (Reported) Entered as Reported by: COLT BOURNE on 06/26/23 143 Insulin Lispro (Insulin Lispro Kwikpen U-100) 100 Unit/Ml Insuln.pen, UNITS SC AC, (Reported) Entered as Reported by: COLT BOURNE on 06/26/23 1438 Review of Systems Review of Systems Constitutional: no symptoms reported EENTM: no symptoms reported Respiratory: no symptoms reported Cardiovascular: no symptoms reported Gastrointestinal: see HPI; No abdominal pain; nausea, vomiting Genitourinary: no symptoms reported Musculoskeletal: see HPI Skin: no symptoms reported Psychiatric/Neurological: No Symptoms Reported Hematologic/Lymphatic: No Symptoms Reported Immunological/Allergic: no symptoms reported Past Myacuyv-Iwhygy-Rjgoay Hx Patient Social History Tobacco Use?: No Substance use?: Yes Substance type: Marijuana Additional substance use comme: THC IN PAST Alcohol Use?: No Immunizations Up To Date Tetanus Booster (TDap): Less than 5yrs PED Vaccines UTD: Yes First/Initial COVID19 Vaccinat: APR 2021 Second COVID19 Vaccination [place]: MAY 2021 Third COVID19 Vaccination Date: APR 2021 Seasonal Allergies Seasonal Allergies: No Past Medical History Surgery/Hospitalization HX: DM, PORT PLACEMENT Surgeries: Yes (RIGHT PORT) Respiratory: No Currently Using CPAP: No Currently Using BIPAP: No Cardiac: Yes (TACHYCARDIA) Palpitations Neurological: No Reproductive Disorders: No Female Reproductive Disorders: Denies Sexually Transmitted Disease: No HIV/AIDS: No Genitourinary: Yes Bladder Infection Gastrointestinal: Yes (CANNABIS HYPEREMESIS; CHRONIC 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 DX AGE 12) Diabetes, Insulin dep HEENT: No Loss of Vision: Denies Hearing Impairment: Denies Cancer: No Psychosocial: Yes Anxiety, Depression Integumentary: No Blood Disorders: No Adverse Reaction/Blood Tranf: No Family Medical History No Pertinent Family Hx, Other Conditions/Hx SOCIAL HISTORY: -SMOKING DENIES USE -ETOH DENIES USE -DRUGS--THC IN PAST, NO RECENT USE DELIVERED 12/07/22--STILLBORN AT 29/30 WEEKS GESTATION. Physical Exam Vital Signs Vital Signs - First Documented 07/06/23 07/06/23 07/06/23 07/06/23 11:15 11:30 11:45 21:03 Temp 36.9 Pulse 112 Resp 8 B/P (MAP) 125/77 (93) Pulse Ox 99 O2 Delivery Room Air Capillary Refill : Height, Weight, BMI Height: 5'9.00" Weight: 255lbs. 0oz. 115.088736if; 26.78 BMI Method:Stated General Appearance: No Apparent Distress, WD/WN, Other (HYPERVENTILATING, DRY HEAVING ON ARRIVAL) HEENT: PERRL/EOMI, Moist Mucous Membranes Neck: Normal Inspection Respiratory: Normal Breath Sounds, No Accessory Muscle Use, No Respiratory Distress Cardiovascular: No Murmur, Tachycardia Gastrointestinal: Non Tender, Soft Back: No CVA Tenderness Extremity: Normal Capillary Refill, Normal Inspection Neurologic/Psychiatric: Alert, Oriented x3, No Motor/Sensory Deficits, learning coordinator II- XII Norm as Tested Skin: Normal Color, Warm/Dry; No Rash Focused Exam Lactate Level 07/06/23 00:10: Lactic Acid Level 1.71 07/06/23 21:10: Lactic Acid Level 6.11*H Lactic Acid Level Laboratory Tests Test 07/06/23 00:10 07/06/23 21:10 Lactic Acid Level 1.71 MMOL/L (0.50-2.00) 6.11 MMOL/L (0.50-2.00) *H Procedures/Interventions Date of ETT Placement: Feb 18, 2021 Time of ETT Placement: 1432 Progress/Results/Core Measures Suspected Sepsis SIRS Temperature: Pulse: Respiratory Rate: Laboratory Tests 07/06/23 21:10: White Blood Count 7.0 Blood Pressure / Mean: 07/06/23 00:10: Lactic Acid Level 1.71 07/06/23 21:10: Lactic Acid Level 6.11*H Laboratory Tests 07/06/23 21:10: Platelet Count 417H, Total Bilirubin 0.4 Results/Orders Lab Results Laboratory Tests Test 07/06/23 00:10 07/06/23 21:10 07/06/23 21:11 07/06/23 21:25 Range/Units Sodium Level 139 139 135-145 MMOL/L Potassium Level 3.4 L 3.1 L 3.6-5.0 MMOL/L Chloride Level 106 105 98-107 MMOL/L Carbon Dioxide Level 15 L 8 *L 21-32 MMOL/L Anion Gap 18 H 26 H 5-14 MMOL/L Blood Urea Nitrogen 7 9 7-18 MG/DL Creatinine 0.87 1.25 0.60-1.30 MG/DL Estimat Glomerular Filtration Rate 98 63 BUN/Creatinine Ratio 8 7 Glucose Level 130 H 255 H 70-105 MG/DL Lactic Acid Level 1.71 6.11 *H 0.50-2.00 MMOL/L Calcium Level 8.2 L 8.9 8.5-10.1 MG/DL Beta-Hydroxybutyrate (Chem panel) 3.87 H 6.90 H 0.00-0.27 MMOL/L White Blood Count 7.0 4.3-11.0 10^3/uL Red Blood Count 4.36 3.80-5.11 10^6/uL Hemoglobin 11.2 L 11.5-16.0 g/dL Hematocrit 35 35-52 % Mean Corpuscular Volume 81 80-99 fL Mean Corpuscular Hemoglobin 26 25-34 pg Mean Corpuscular Hemoglobin Concent 32 32-36 g/dL Red Cell Distribution Width 15.8 H 10.0-14.5 % Platelet Count 417 H 130-400 10^3/uL Mean Platelet Volume 9.7 9.0-12.2 fL Immature Granulocyte % (Auto) 1 % Neutrophils (%) (Auto) 69 42-75 % Lymphocytes (%) (Auto) 23 12-44 % Monocytes (%) (Auto) 6 0-12 % Eosinophils (%) (Auto) 0 0-10 % Basophils (%) (Auto) 1 0-10 % Neutrophils # (Auto) 4.9 1.8-7.8 10^3/uL Lymphocytes # (Auto) 1.6 1.0-4.0 10^3/uL Monocytes # (Auto) 0.4 0.0-1.0 10^3/uL Eosinophils # (Auto) 0.0 0.0-0.3 10^3/uL Basophils # (Auto) 0.1 0.0-0.1 10^3/uL Immature Granulocyte # (Auto) 0.1 0.0-0.1 10^3/uL Venous Blood pH 7.27 L 7.31-7.41 Venous Blood Partial Pressure CO2 18 L 40-52 MMHG Venous Blood HCO3 8 L 22-28 MMOL/L Corrected Calcium 9.1 8.5-10.1 MG/DL Magnesium Level 1.8 1.6-2.4 MG/DL Total Bilirubin 0.4 0.1-1.0 MG/DL Aspartate Amino Transf (AST/SGOT) 51 H 5-34 U/L Alanine Aminotransferase (ALT/SGPT) 28 0-55 U/L Alkaline Phosphatase 202 H 40-136 U/L Total Protein 7.3 6.4-8.2 GM/DL Albumin 3.7 3.2-4.5 GM/DL Amylase Level 141 H 25-125 U/L Lipase 21 8-78 U/L Serum Test, Qualitative NEGATIVE NEGATIVE Glucometer 248 H 70-110 MG/DL Urine Color YELLOW Urine Clarity CLEAR Urine pH 5.0 5-9 Urine Specific [place] >=1.030 1.016-1.022 Urine Protein 2+ H NEGATIVE Urine Glucose (UA) 2+ H NEGATIVE Urine Ketones 4+ H NEGATIVE Urine Nitrite NEGATIVE NEGATIVE Urine Bilirubin 2+ H NEGATIVE Urine Urobilinogen 0.2 < = 1.0 MG/DL Urine Leukocyte Esterase NEGATIVE NEGATIVE Urine RBC (Auto) 3+ H NEGATIVE Urine RBC 25-50 H /HPF Urine WBC 2-5 /HPF Urine Squamous Epithelial Cells 10-25 H /HPF Urine Crystals PRESENT H /LPF Urine Amorphous Sediment FEW ESTHELA URATES H /LPF Urine Bacteria TRACE /HPF Urine Casts PRESENT /LPF Urine Hyaline Casts 10-25 H /LPF Urine Mucus MODERATE H /LPF Urine Culture Indicated NO Urine Opiates Screen NEGATIVE NEGATIVE Urine Oxycodone Screen NEGATIVE NEGATIVE Urine Methadone Screen NEGATIVE NEGATIVE Urine Propoxyphene Screen NA NEGATIVE Urine Barbiturates Screen NEGATIVE NEGATIVE Ur Tricyclic Antidepressants Screen NEGATIVE NEGATIVE Urine Phencyclidine Screen NEGATIVE NEGATIVE Urine Amphetamines Screen NEGATIVE NEGATIVE Urine Methamphetamines Screen NEGATIVE NEGATIVE Urine Benzodiazepines Screen NEGATIVE NEGATIVE Urine Cocaine Screen NEGATIVE NEGATIVE Urine Cannabinoids Screen NEGATIVE NEGATIVE Test 07/06/23 21:50 Range/Units Influenza Type A (RT-PCR) Not Detected Not Detecte Influenza Type B (RT-PCR) Not Detected Not Detecte SARS-CoV-2 RNA (RT-PCR) Not Detected Not Detecte My Orders Orders - LADONNA RANGEL DO Accucheck Stat ONCE (07/06/23 21:02) Ed Iv/Invasive Line Start (07/06/23 21:02) Monitor-Rhythm Ecg Trace Only (07/06/23 21:02) Amylase (07/06/23 21:02) Cbc And Automated Diff (07/06/23 21:02) Comprehensive Metabolic Panel (07/06/23 21:02) Hcg,Qualitative Serum (07/06/23 21:02) Lactic Acid Analyzer (07/06/23 21:02) Lipase (07/06/23 21:02) Magnesium (07/06/23 21:02) Ua Culture If Indicated (07/06/23 21:02) Ed Iv/Invasive Line Start (07/06/23 21:02) Ns Iv 1000 Ml (Ns Iv 1000 Ml) (07/06/23 21:15) Ondansetron Injection (Ondansetron Inj (07/06/23 21:15) Beta Hydroxybutyrate (07/06/23 21:02) Venous Blood Gas (07/06/23 21:) Drug Screen Stat (Urine) (07/06/23 21:44) Ketorolac Injection (Ketorolac Injection (07/06/23 22:00) Covid 19 Inhouse Test (07/06/23 21:49) Influenza A And B By Pcr (07/06/23 21:49) Sodium Bicarbonate 8.4% Syr (Sodium Bica (07/06/23 22:00) Ed Admission (Communication) (07/06/23 22:42) Medications Given in ED Vital Signs/I&O 07/06/23 07/06/23 07/06/23 07/06/23 11:15 11:30 11:45 21:03 Temp 36.9 Pulse 112 108 135 Resp 8 19 20 B/P (MAP) 125/77 (93) 152/103 (119) Pulse Ox 99 100 O2 Delivery Room Air 07/07/23 00:00 Intake Total 1000 ml Balance 1000 ml Capillary Refill : Progress Note : Progress Note ACCUCHECK 248 ON ARRIVAL VITALS ON ARRIVAL: TEMP 36.9, HR 135, RR 20, BP 152/103, O2 SAT 100% ON ROOM AIR GIVEN: -IV FLUIDS -ZOFRAN--NAUSEA RESOLVED -TORADOL LABS: -CBC, WITH HGB 11.2 OTHERWISE NORMAL -CMP WITH NA 139, K 3.1, CO2 8, ANION GAP 26, BUN 9, CR 1.25, GLU 255, AST 51, ALK PHOS 202 -AMYLASE 141, LIPASE 21 -LACTIC ACID 6.11 -BETAHYDROXYBUTYRATE 6.9 -VENOUS BLOOD GAS PH 7.27, PCO2 18, HCO3 8 -UA WITH 2+ PROTEIN, 2+ GLUCOSE, 4+ KETONES, 2+ BILI, 25-50 RBC -HCG NEGATIVE -UDS NEGATIVE -COVID/FLU NEGATIVE UNEVENTFUL ER STAY DISCUSSED TEST RESULTS, NEED FOR ADMIT AND PT IS AGREEABLE TO PLAN REVIEWED PRIOR RECORDS, ER VISITS, ADMITS/H&P'S/CONSULTS/DISCHARGE SUMMARIES, TESTS/PROCEDURES Departure Communication (Admissions) 2199--CONTACTED DR. SMYTH, HOSPITALIST FOR [facility]. ACCEPTS PT FOR ADMIT. SHE WILL DO ADMIT ORDERS 2200--REPORT TO E-ICU PHYSICIAN Impression Primary Impression: DKA (diabetic ketoacidosis) Additional Impressions: Uncontrolled type 1 diabetes mellitus Nausea & vomiting Disposition: ADMITTED INPATIENT Condition: Stable Admissions Decision to Admit Reason: Admit from ER (General) Decision to Admit/Date: Jul 06, 2023 Time/Decision to Admit Time: 22:00 Departure-Patient Inst. Referrals: COLT LAMBERT DO (PCP/Family) Primary Care Physician LADONNA RANGEL DO Jul 06, 2023 21:04
[2023-07-06] MEDS ORDERED: NS IV 1000 ML 1,000 ML IV SCH ×2 (21:15→23:45)
[2023-07-06] MEDS ORDERED: ONDANSETRON INJECTION 4 MG/2 ML (SDV) IVP ONE (21:15)
[2023-07-06 21:20] LABS: BASOPHILS # (AUTO) 0.1 10^3/uL (0.0-0.1); BASOPHILS % (AUTO) 1 % (0-10); EOSINOPHILS % (AUTO) 0 % (0-10); HEMATOCRIT 35 % (35-52); HEMOGLOBIN 11.2 g/dL (11.5-16.0); LYMPHOCYTES # (AUTO) 1.6 10^3/uL (1.0-4.0); LYMPHOCYTES % (AUTO) 23 % (12-44); MEAN CORPUSCULAR HEMOGLOBIN 26 pg (25-34); MEAN CORPUSCULAR HGB CONC 32 g/dL (32-36); MEAN CORPUSCULAR VOLUME 81 fL (80-99); MEAN PLATELET VOLUME 9.7 fL (9.0-12.2); MONOCYTES # (AUTO) 0.4 10^3/uL (0.0-1.0); MONOCYTES % (AUTO) 6 % (0-12); NEUTROPHILS # (AUTO) 4.9 10^3/uL (1.8-7.8); NEUTROPHILS % (AUTO) 69 % (42-75); PLATELET COUNT 417 10^3/uL (130-400)
[2023-07-06 21:32] LABS: ALBUMIN 3.7 GM/DL (3.2-4.5)
[2023-07-06 21:33] LABS: POTASSIUM 3.1 MMOL/L (3.6-5.0)
[2023-07-06 21:34] LABS: CALCIUM 8.9 MG/DL (8.5-10.1)
[2023-07-06 21:35] LABS: TOTAL PROTEIN 7.3 GM/DL (6.4-8.2)
[2023-07-06 21:37] LABS: BILIRUBIN,TOTAL 0.4 MG/DL (0.1-1.0)
[2023-07-06 21:39] LABS: CREATININE SERUM 1.25 MG/DL (0.60-1.30)
[2023-07-06 21:42] LABS: MAGNESIUM 1.8 MG/DL (1.6-2.4)
[2023-07-06 21:43] LABS: BACTERIA,URINE TRACE /HPF; BILIRUBIN,URINE 2+ (NEGATIVE); CLARITY,URINE CLEAR; COLOR,URINE YELLOW; GLUCOSE, URINE (UA) 2+ (NEGATIVE); KETONES,URINE 4+ (NEGATIVE); LEUKOCYTE ESTERASE ,URINE NEGATIVE (NEGATIVE); NITRITE,URINE NEGATIVE (NEGATIVE); PROTEIN,URINE 2+ (NEGATIVE); RBC,URINE 25-50 /HPF
[2023-07-06 21:44] LABS: AMORPHOUS SEDIMENT,UR FEW AMOR URATES /LPF
[2023-07-06 21:59] LABS: AMPHETAMINE SCREEN, URINE NEGATIVE (NEGATIVE); BARBITURATE SCREEN URINE NEGATIVE (NEGATIVE); CANNABINOID SCREEN, URINE NEGATIVE (NEGATIVE); COCAINE SCREEN URINE NEGATIVE (NEGATIVE); METHADONE STAT NEGATIVE (NEGATIVE); OPIATE SCREEN URINE NEGATIVE (NEGATIVE); OXYCODONE STAT NEGATIVE (NEGATIVE); TRICYCLIC ANTIDEPRESSANTS SCRE NEGATIVE (NEGATIVE)
[2023-07-06] MEDS ORDERED: SODIUM BICARB 8.4% 50 MEQ/50 ML (ABBOTT) SYR IV ONE (22:00)
[2023-07-06] MEDS ORDERED: KETOROLAC INJ 30 MG/ML VIAL IVP ONE (22:00)
--- NOTE | 2023-07-06 23:29 | Tele-ICU Consult ---
Progress Note (Tele-ICU Physician, consultation) Available chart/ vitals / labs / Images reviewed H&P is from ER notes Patient's information available about PMH, allergy reviewed in EMR. ROS as per chart and RN report Video assessment done using teleICU camera. Consultants: Endocrine Hospital course: 22 yo F admitted with DKA, frequent admissions for DKA. Discussed plan of care in detail with ED attending, Dr. Martinez. Patient is well known to hospital service there. DKA protocol in place. A/P Insulin gtt, manage acidosis and electrolytes. IVF. Lines: PIV [place]: N/A OG: N/A Nutrition: NPO Analgesia: N/A VTE Prophylaxis: SCDs Stress Ulcer Prophylaxis: N/A Plans in collaboration with bedside consultants and Primary MD. RN to reach out if any questions or concerns _10___ min of critical care time devoted to this patient today, required to treat and/or prevent further deterioration of critical care condition. Focused Exam Lactate Level 07/06/23 21:10: Lactic Acid Level 6.11*H Height, Weight, BMI Height: 5'9.00" Weight: 255lbs. 0oz. 115.379142kf; 25.00 BMI Method:Stated Lactic Acid Level Laboratory Tests Test 07/06/23 21:10 Lactic Acid Level 6.11 MMOL/L (0.50-2.00) *H RUSLAN FRANKLIN MD Jul 06, 2023 23:29
[2023-07-06] MEDS ORDERED: PANTOPRAZOLE 40 MG TABLET PO ONE (23:30)
[2023-07-06] MEDS ORDERED: ONDANSETRON INJECTION 4 MG/2 ML (SDV) IV PRN (23:45)
[2023-07-06] MEDS ORDERED: diphenhydrAMINE 25 MG TABLET PO PRN (23:45)
[2023-07-06] MEDS ORDERED: LACTULOSE SYRUP 10GM/15ML 30ML UDC PO PRN (23:45)
[2023-07-06] MEDS ORDERED: ANTACID SUSPENSION 30 ML UDC PO PRN (23:45)
[2023-07-06] MEDS ORDERED: diphenhydrAMINE INJ 50 MG/ML VIAL IVP PRN (23:45)
[2023-07-06] MEDS ORDERED: MELATONIN 3 MG TABLET PO PRN (23:45)
[2023-07-06] MEDS ORDERED: ONDANSETRON 4 MG ORAL DISSOLVE TABLET PO PRN (23:45)
[2023-07-06] MEDS ORDERED: CALCIUM CARBONATE 500 MG CHEW TABLET PO PRN (23:45)
[2023-07-06] MEDS ORDERED: NS IV 500 ML 500 ML IV PRN (23:45)
[2023-07-06] MEDS ORDERED: BISACODYL 10 MG SUPPOSITORY PR PRN (23:45)
[2023-07-06] MEDS ORDERED: ACETAMINOPHEN 325 MG TABLET PO PRN (23:45)
[2023-07-06] MEDS ORDERED: MILK OF MAGNESIA 400 MG/5 ML 30 ML UDC PO PRN (23:45)
[2023-07-07] MEDS ORDERED: D5 1/2 NS 1,000 ML IV 1,000 ML IV ONE
[2023-07-07] MEDS ORDERED: 1/2 NS IV SOLUTION 1000 ML 1,000 ML IV ONE
[2023-07-07 00:34] LABS: CALCIUM 8.2 MG/DL (8.5-10.1); CREATININE SERUM 0.87 MG/DL (0.60-1.30); POTASSIUM 3.4 MMOL/L (3.6-5.0)
[2023-07-07] MEDS: 1/2 NS IV SOLUTION 1000 ML 1,000 ML IV SCH ×6 (00:36→18:45)
[2023-07-07] MEDS: POTASSIUM CL 10MEQ/50ML IVPB 50 ML IV SCH ×15 (00:37→22:50)
[2023-07-07] MEDS: D5 1/2 NS 1,000 ML IV 1,000 ML IV SCH ×5 (00:37→19:48)
[2023-07-07] MEDS: HYDROmorphone INJECTION 2 MG/ML VIAL IV PRN ×5 (00:52→21:44)
[2023-07-07 02:21] LABS: POTASSIUM 3.1 MMOL/L (3.6-5.0)
[2023-07-07 02:22] LABS: CALCIUM 7.5 MG/DL (8.5-10.1)
[2023-07-07 02:27] LABS: CREATININE SERUM 0.89 MG/DL (0.60-1.30)
[2023-07-07 04:23] LABS: ABG BASE EXCESS -10.8 MMOL/L (-2.5-2.5); ABG OXYGEN SATURATION 98 % (94-100); ABG PCO2 30 MMHG (35-45); ABG PO2 82 MMHG (79-93); ABG TCO2 15.3 MMOL/L (21.0-31.0)
[2023-07-07 04:24] LABS: INSPIRED O2 RA; VENTILATOR NO
[2023-07-07 04:25] LABS: ABG PH 7.29 (7.37-7.43)
[2023-07-07 04:32] LABS: BASOPHILS % (AUTO) 1 % (0-10); EOSINOPHILS # (AUTO) 0.1 10^3/uL (0.0-0.3); EOSINOPHILS % (AUTO) 1 % (0-10); HEMATOCRIT 28 % (35-52); HEMOGLOBIN 9.1 g/dL (11.5-16.0); LYMPHOCYTES # (AUTO) 2.9 10^3/uL (1.0-4.0); LYMPHOCYTES % (AUTO) 38 % (12-44); MEAN CORPUSCULAR HEMOGLOBIN 26 pg (25-34); MEAN CORPUSCULAR HGB CONC 33 g/dL (32-36); MEAN CORPUSCULAR VOLUME 80 fL (80-99); MEAN PLATELET VOLUME 10.2 fL (9.0-12.2); MONOCYTES # (AUTO) 0.7 10^3/uL (0.0-1.0); MONOCYTES % (AUTO) 9 % (0-12); NEUTROPHILS # (AUTO) 3.9 10^3/uL (1.8-7.8); NEUTROPHILS % (AUTO) 52 % (42-75); PLATELET COUNT 352 10^3/uL (130-400); WHITE BLOOD COUNT 7.6 10^3/uL (4.3-11.0)
[2023-07-07 05:10] LABS: BILIRUBIN,TOTAL 0.3 MG/DL (0.1-1.0); CALCIUM 7.8 MG/DL (8.5-10.1); CREATININE SERUM 0.88 MG/DL (0.60-1.30); MAGNESIUM 1.5 MG/DL (1.6-2.4); PHOSPHORUS 3.6 MG/DL (2.3-4.7); TOTAL PROTEIN 5.4 GM/DL (6.4-8.2)
--- NOTE | 2023-07-07 05:41 | History & Physical ---
HPI Attending Physician Carlos Lyn DO PCP Admitting Physician: Patito Diamond DO Attending Physician: Patito Diamond DO Consult Date of Admission Jul 06, 2023 at 22:45 Home Medications Home Medications Reviewed patient Home Medication Reconciliation performed by pharmacy medication reconciliations arcade game technician and/or nursing. Patients Allergies have been reviewed. Allergies Coded Allergies: bismuth subsalicylate (Verified Allergy, Unknown, 08/29/22) latex (Unverified Allergy, Unknown, 01/09/23) OHE-Ttfuhi-Qllhhe Hx Patient Social History 2nd Hand Smoke Exposure: No Recent Hopitalizations: Yes (DKA) Alcohol Use?: No Immunizations Up To Date Tetanus Booster (TDap): Less than 5yrs Influenza Vaccine Up-to-Date: Yes; Up-to-Date First/Initial COVID19 Vaccinat: APR 2021 Second COVID19 Vaccination [place]: MAY 2021 Third COVID19 Vaccination Date: APR 2021 Past Medical History PMHx: Type I DM Depression SurgHx: Denies Family Medical History Significant Family History: No Pertinent Family Hx, Other Conditions/Hx Other Significan Family Hx: SOCIAL HISTORY: -SMOKING DENIES USE -ETOH DENIES USE -DRUGS--THC IN PAST, NO RECENT USE DELIVERED 12/07/22--STILLBORN AT 29/30 WEEKS GESTATION. Physical Exam-(CHC) Physical Exam Vital Signs VS - Last 72 Hours, by Label 07/06/23 07/06/23 07/06/23 07/06/23 11:15 11:30 11:45 21:03 Temp 36.9 Pulse 112 108 135 Resp 8 19 20 B/P (MAP) 125/77 (93) 152/103 (119) Pulse Ox 99 100 O2 Delivery Room Air 07/06/23 07/06/23 07/06/23 07/07/23 23:00 23:30 23:46 00:00 Pulse 119 135 118 Resp 20 28 B/P (MAP) 129/86 118/81 (93) Pulse Ox 98 98 100 100 O2 Delivery Room Air Room Air FiO2 21 07/07/23 07/07/23 07/07/23 07/07/23 00:10 00:30 01:00 02:00 Pulse 112 107 105 129 Resp 16 13 28 B/P (MAP) 125/72 (89) Pulse Ox 100 98 100 07/07/23 07/07/23 07/07/23 07/07/23 03:00 04:00 04:00 05:00 Pulse 116 105 101 Resp 14 10 15 B/P (MAP) 127/76 (93) 124/86 (99) 120/75 (90) Pulse Ox 99 99 98 99 O2 Delivery Room Air 07/07/23 07/07/23 07/07/23 07/07/23 06:00 07:00 07:00 07:30 Temp 36.0 Pulse 99 98 94 Resp 10 13 B/P (MAP) 120/87 (98) 116/62 (78) Pulse Ox 99 98 O2 Delivery Room Air Room Air 07/07/23 07/07/23 08:00 08:00 Pulse 85 Resp 15 B/P (MAP) 123/82 (96) Pulse Ox 99 97 O2 Delivery Room Air Room Air Capillary Refill : Less Than 3 Seconds Assessment/Plan Assessment/Plan (1) DKA (diabetic ketoacidosis) Onset Date: 05/14/2023 Status: Acute (2) Type 1 diabetes mellitus Status: Chronic (3) Nausea & vomiting Status: Acute (4) High anion gap metabolic acidosis JESÚS ACUÑA MD, RESIDENT Jul 07, 2023 05:41
[2023-07-07] MEDS: POTASSIUM CHLORIDE 20 MEQ TABLET PO SCH (06:43)
[2023-07-07] MEDS: MAGNESIUM 1 GM/100 ML IVPB 100 ML IV SCH ×3 (06:48→09:13)
[2023-07-07 08:30] LABS: POTASSIUM 3.1 MMOL/L (3.6-5.0)
[2023-07-07 08:31] LABS: CALCIUM 7.6 MG/DL (8.5-10.1)
[2023-07-07 08:35] LABS: CREATININE SERUM 0.87 MG/DL (0.60-1.30)
--- NOTE | 2023-07-07 08:53 | Tele-ICU Progress Note ---
Progress Note video rounds completed 22 y/o f admitted with DKA Treated with insulin drip BS this am: 142 K: 3.1 HCO3: 13 PE: comfortable hemodynamically normal imp; DKA PLAN: endocrine on consult Correct K Overall improvedI am remotely monitoring this patient from another state. I am unable to do the bedside exam, and history/physical and pertinent information is taken from other notes in the computer and bedside staff. Time spent in review 10 minutes Focused Exam Lactate Level 07/06/23 00:10: Lactic Acid Level 1.71 07/06/23 21:10: Lactic Acid Level 6.11*H Height, Weight, BMI Height: 5'9.00" Weight: 255lbs. 0oz. 115.673555ai; 25.37 BMI Method:Stated Labs Laboratory Tests 07/06/23 21:10 07/07/23 02:00 07/07/23 04:00 07/07/23 07:53 Results Results/Procedures Labs Laboratory Tests 07/06/23 00:10 07/06/23 21:10 07/07/23 02:00 07/07/23 04:00 07/07/23 07:53 Patient resulted labs reviewed. Results Labs Labs Laboratory Tests 07/06/23 21:10: White Blood Count 7.0, Red Blood Count 4.36, Hemoglobin 11.2L, Hematocrit 35, Mean Corpuscular Volume 81, Mean Corpuscular Hemoglobin 26, Mean Corpuscular Hemoglobin Concent 32, Red Cell Distribution Width 15.8H, Platelet Count 417H, Mean Platelet Volume 9.7, Immature Granulocyte % (Auto) 1, Neutrophils (%) (Auto) 69, Lymphocytes (%) (Auto) 23, Monocytes (%) (Auto) 6, Eosinophils (%) (Auto) 0, Basophils (%) (Auto) 1, Neutrophils # (Auto) 4.9, Lymphocytes # (Auto) 1.6, Monocytes # (Auto) 0.4, Eosinophils # (Auto) 0.0, Basophils # (Auto) 0.1, Immature Granulocyte # (Auto) 0.1, Venous Blood pH 7.27L, Venous Blood Partial Pressure CO2 18L, Venous Blood HCO3 8L, Sodium Level 139, Potassium Level 3.1L, Chloride Level 105, Carbon Dioxide Level 8*L, Anion Gap 26H, Blood Urea Nitrogen 9, Creatinine 1.25, Estimat Glomerular Filtration Rate 63, BUN/Creatinine Ratio 7, Glucose Level 255H, Lactic Acid Level 6.11*H, Calcium Level 8.9, Corrected Calcium 9.1, Magnesium Level 1.8, Total Bilirubin 0.4, Aspartate Amino Transf (AST/SGOT) 51H, Alanine Aminotransferase (ALT/SGPT) 28, Alkaline Phosphatase 202H, Total Protein 7.3, Albumin 3.7, Amylase Level 141H, Lipase 21, Beta- Hydroxybutyrate (Chem panel) 6.90H, Serum Test, Qualitative NEGATIVE 07/06/23 21:11: Glucometer 248H 07/06/23 21:25: Urine Color YELLOW, Urine Clarity CLEAR, Urine pH 5.0, Urine Specific [place] >=1.030, Urine Protein 2+H, Urine Glucose (UA) 2+H, Urine Ketones 4+H, Urine Ni trite NEGATIVE, Urine Bilirubin 2+H, Urine Urobilinogen 0.2, Urine Leukocyte Es terase NEGATIVE, Urine RBC (Auto) 3+H, Urine RBC 25-50H, Urine WBC 2-5, Urine Squamous Epithelial Cells 10-25H, Urine Crystals PRESENTH, Urine Amorphous Sediment FEW ESTHELA URATESH, Urine Bacteria TRACE, Urine Casts PRESENT, Urine Hyaline Casts 10-25H, Urine Mucus MODERATEH, Urine Culture Indicated NO, Urine Opiates Screen NEGATIVE, Urine Oxycodone Screen NEGATIVE, Urine Methadone Screen NEGATIVE, Urine Propoxyphene Screen NA, Urine Barbiturates Screen NEGATIVE, Ur Tricyclic Antidepressants Screen NEGATIVE, Urine Phencyclidine Screen NEGATIVE, Urine Amphetamines Screen NEGATIVE, Urine Methamphetamines Screen NEGATIVE, Urine Benzodiazepines Screen NEGATIVE, Urine Cocaine Screen NEGATIVE, Urine Cannabinoids Screen NEGATIVE 07/06/23 21:50: Influenza Type A (RT-PCR) Not Detected, Influenza Type B (RT-PCR) Not Detected, SARS-CoV-2 RNA (RT-PCR) Not Detected 07/07/23 00:20: Glucometer 151H 07/07/23 02:00: Sodium Level 141, Potassium Level 3.1L, Chloride Level 110H, Carbon Dioxide Level 13L, Anion Gap 18H, Blood Urea Nitrogen 6L, Creatinine 0.89, Estimat Glomerular Filtration Rate 95, BUN/Creatinine Ratio 7, Glucose Level 174H, Calcium Level 7.5L 07/07/23 02:24: Glucometer 177H 07/07/23 02:59: Glucometer 240H 07/07/23 03:49: Glucometer 248H 07/07/23 04:00: White Blood Count 7.6, Red Blood Count 3.52L, Hemoglobin 9.1L, Hematocrit 28L, Mean Corpuscular Volume 80, Mean Corpuscular Hemoglobin 26, Mean Corpuscular Hemoglobin Concent 33, Red Cell Distribution Width 15.9H, Platelet Count 352, Mean Platelet Volume 10.2, Immature Granulocyte % (Auto) 1, Neutrophils (%) (Auto) 52, Lymphocytes (%) (Auto) 38, Monocytes (%) (Auto) 9, Eosinophils (%) (Auto) 1, Basophils (%) (Auto) 1, Neutrophils # (Auto) 3.9, Lymphocytes # (Auto) 2.9, Monocytes # (Auto) 0.7, Eosinophils # (Auto) 0.1, Basophils # (Auto) 0.0, Immature Granulocyte # (Auto) 0.0, Sodium Level 139, Potassium Level 3.0L, Chloride Level 108H, Carbon Dioxide Level 12L, Anion Gap 19H, Blood Urea Nitrogen 7, Creatinine 0.88, Estimat Glomerular Filtration Rate 96, BUN/Creatinine Ratio 8, Glucose Level 228H, Calcium Level 7.8L, Corrected Calcium 8.6, Phosphorus Level 3.6, Magnesium Level 1.5L, Total Bilirubin 0.3, Aspartate Amino Transf (AST/SGOT) 36H, Alanine Aminotransferase (ALT/SGPT) 21, Alkaline Phosphatase 154H, Total Protein 5.4L, Albumin 3.0L 07/07/23 04:15: Arterial Blood pH 7.29*L, Arterial Blood Partial Pressure CO2 30L, Arterial Blood Partial Pressure O2 82, Arterial Blood HCO3 14*L, Arterial Blood Total CO2 15.3L, Arterial Blood Oxygen Saturation 98, Arterial Blood Base Excess -10.8L, Blood Gas Ventilator Setting NO, Blood Gas Inspired Oxygen RA 07/07/23 05:47: Glucometer 136H 07/07/23 06:45: Glucometer 237H 07/07/23 07:33: Glucometer 244H 07/07/23 07:53: Sodium Level 137, Potassium Level 3.1L, Chloride Level 108H, Carbon Dioxide Level 13L, Anion Gap 16H, Blood Urea Nitrogen 6L, Creatinine 0.87, Estimat Glomerular Filtration Rate 98, BUN/Creatinine Ratio 7, Glucose Level 226H, Calcium Level 7.6L 07/07/23 08:39: Glucometer 142H VENANCIO ROGERS MD Jul 07, 2023 08:53
[2023-07-07] MEDS: ENOXAPARIN 40 MG/0.4 ML SYRINGE SC SCH (09:14)
[2023-07-07] MEDS: SENNOSIDES 8.6 MG TABLET PO SCH ×2 (09:14→21:07)
[2023-07-07] MEDS: DOCUSATE SODIUM 100 MG CAPSULE PO SCH ×2 (09:14→21:07)
--- NOTE | 2023-07-07 09:27 | History & Physical-Hospitalist ---
JESÚS ACUÑA MD, RESIDENT 07/07/23 0927: History of Present Illness HPI/Chief Complaint CC: Hyperglycemia Patient is a 22-year-old female with a history of type 1 diabetes, history of noncompliance who presented to the ED with hyperglycemia and nausea vomiting. She states she had been taking her medication as prescribed and had been having good blood sugars however all of a sudden had worsening sugars at home up to 471. She however continued to have symptoms and thus presented to the ED for further evaluation. She takes Lantus 20 units twice daily and takes lispro on a sliding scale at mealtimes. She does not take any other diabetes medications. Is also on Wellbutrin at home. In the ED patient was noted to have lactic acidosis, anion gap metabolic acidosis, elevated beta hydroxybutyrate and was thus diagnosed to be in diabetic ketoacidosis. She was ultimately admitted to the ICU for further management. Source: patient Exam Limitations: no limitations Date Seen 07/07/23 Time Seen by a Provider: 06:30 Attending Physician Carlos Lyn DO PCP Admitting Physician: Patito Smyth DO Attending Physician: Patito Smyth DO Referring Physician Date of Admission Jul 06, 2023 at 22:45 Home Medications & Allergies Home Medications Reviewed patient Home Medication Reconciliation performed by pharmacy medication reconciliations epitaxial reactor technician and/or nursing. Patients Allergies have been reviewed. Allergies Allergies Coded Allergies bismuth subsalicylate (Verified Allergy, Unknown, 08/29/22) latex (Unverified Allergy, Unknown, 01/09/23) Past Lxpxqmr-Eypdbs-Tlubgv Hx Patient Social History Tobacco Use?: No Substance use?: No Alcohol Use?: No Pt feels they are or have been: No Immunizations Up To Date Date of Influenza Vaccine: Jul 25, 2022 First/Initial COVID19 Vaccinat: APR 2021 Second COVID19 Vaccination [place]: MAY 2021 Tetanus Booster (TDap): Less Than 5 Years Hepatitis A: No Hepatitis B: No PED Vaccines UTD: Yes Seasonal Allergies Seasonal Allergies: No Current Status status: No status: No Advance Directives: No Communicates: Verbally Primary Language: Malian Preferred Spoken Language: Malian Is interpretation needed?: Unable to obtain Past Medical History Currently Using CPAP: No Currently Using BIPAP: No Palpitations Sexually Transmitted Disease: No HIV/AIDS: No Bladder Infection Diabetes, Insulin dep Loss of Vision: Denies Hearing Impairment: Denies Anxiety, Depression Blood Disorders: No Adverse Reaction/Blood Tranf: No PMHx: Type I DM Depression SurgHx: Denies Family Medical History No Pertinent Family Hx, Other Conditions/Hx SOCIAL HISTORY: -SMOKING DENIES USE -ETOH DENIES USE -DRUGS--THC IN PAST, NO RECENT USE DELIVERED 12/07/22--STILLBORN AT 29/30 WEEKS GESTATION. Review of Systems Constitutional: chills, dizziness EENTM: no symptoms reported Respiratory: No cough, No dyspnea on exertion, No short of breath Cardiovascular: No chest pain, No edema, No palpitations Gastrointestinal: No abdominal pain, No constipation, No diarrhea; nausea, vomiting Genitourinary: No dysuria Skin: No no symptoms reported Psychiatric/Neurological: Denies No Symptoms Reported Physical Exam Physical Exam Vital Signs Vital Signs - First Documented 07/06/23 07/06/23 07/06/23 07/06/23 07/06/23 11:15 11:30 11:45 21:03 23:46 Temp 36.9 Pulse 112 Resp 8 B/P (MAP) 125/77 (93) Pulse Ox 99 O2 Delivery Room Air FiO2 21 Capillary Refill : Less Than 3 Seconds Height, Weight, BMI Height: 5'9.00" Weight: 255lbs. 0oz. 115.028662aj; 25.37 BMI Method:Stated General Appearance: No Apparent Distress HEENT: PERRL/EOMI Neck: Full Range of Motion, Normal Inspection Respiratory: Chest Non Tender, Lungs Clear, Normal Breath Sounds, No Accessory Muscle Use, No Respiratory Distress Cardiovascular: No Edema, No Murmur, Tachycardia, Other (Regular rhythm) Gastrointestinal: Normal Bowel Sounds, Non Tender, Soft Extremity: No Pedal Edema Neurologic/Psychiatric: Alert, Oriented x3 Results Results/Procedures Labs Laboratory Tests 07/06/23 00:10 07/06/23 21:10 07/07/23 02:00 07/07/23 04:00 07/07/23 07:53 Patient resulted labs reviewed. Assessment/Plan Admission Diagnosis Diabetic ketoacidosis Admission Status: Inpatient Order (span 2 midnights) Reason for Inpatient Admission: Diabetic ketoacidosis requiring ICU admission Diagnosis/Problems Diagnosis/Problems (1) DKA (diabetic ketoacidosis) Onset Date: 05/14/2023 Status: Acute Assessment & Plan: Patient noted to have anion gap metabolic acidosis, elevated beta hydroxybutyrate and lactic acidosis consistent with diabetic ketoacidosis. Plan: Continue insulin drip and titrate until gap closes Continue potassium drip (2) High anion gap metabolic acidosis Status: Acute Assessment & Plan: See above (3) Type 1 diabetes mellitus Status: Chronic Assessment & Plan: See above. Holding off on home medications for now (4) Anxiety Status: Chronic Assessment & Plan: On Wellbutrin, will hold medications for now. (5) Tachycardia Status: Chronic Assessment & Plan: Chronically tachycardic, per her report her rates are typically in the 90s to 110s. She denies any cardiac symptoms at this time. Otherwise stable (6) Anemia Status: Chronic Assessment & Plan: Patient noted to have anemia to 9.1. It was also noted that the rest of the cell lines did not drop despite patient being on insulin. Patient does note that she is on her period and this likely explains her current anemia. Qualifiers: Anemia type: iron deficiency PATITO SMYTH DO 07/07/23 1702: History of Present Illness HPI/Chief Complaint Chief complaint: DKA HPI: This is a 22-year-old female who is in the hospital 2 weeks out of every month for DKA. No Suspected source of DKA.. Source: patient Exam Limitations: no limitations Past Woqwiij-Ynacza-Gcgzxl Hx Patient Social History Marrital Status: single Employed/Student: unemployed Review of Systems Constitutional: see HPI Physical Exam Physical Exam General Appearance: No Apparent Distress Respiratory: Lungs Clear, Normal Breath Sounds Cardiovascular: Regular Rate, Rhythm Assessment/Plan Admission Diagnosis Supportive care Insulin drip I personally performed the arredondo portions of the visit, discussed case with resident and concur with resident documentation of history, physical exam, assessment and treatment plan unless otherwise noted. Admission Status: Inpatient Order (span 2 midnights) Reason for Inpatient Admission: JESÚS LISA MD, RESIDENT Jul 07, 2023 09:27 PATITO SMYTH DO Jul 07, 2023 17:02
[2023-07-07 16:39] LABS: POTASSIUM 3.7 MMOL/L (3.6-5.0)
[2023-07-07 16:40] LABS: CALCIUM 7.9 MG/DL (8.5-10.1)
[2023-07-07 16:44] LABS: CREATININE SERUM 0.9 MG/DL (0.60-1.30)
[2023-07-07] MEDS: oxyCODONE IMMEDIATE RELEASE 5 MG TABLET PO PRN (20:06)
[2023-07-08] MEDS: 1/2 NS IV SOLUTION 1000 ML 1,000 ML IV SCH ×3 (01:41→08:36)
[2023-07-08] MEDS: POTASSIUM CL 10MEQ/50ML IVPB 50 ML IV SCH ×5 (01:42→09:47)
[2023-07-08] MEDS: HYDROmorphone INJECTION 2 MG/ML VIAL IV PRN ×4 (04:20→22:14)
[2023-07-08 04:22] LABS: BASOPHILS % (AUTO) 0 % (0-10); EOSINOPHILS # (AUTO) 0.1 10^3/uL (0.0-0.3); EOSINOPHILS % (AUTO) 3 % (0-10); HEMATOCRIT 29 % (35-52); HEMOGLOBIN 8.9 g/dL (11.5-16.0); LYMPHOCYTES # (AUTO) 2.5 10^3/uL (1.0-4.0); LYMPHOCYTES % (AUTO) 54 % (12-44); MEAN CORPUSCULAR HEMOGLOBIN 26 pg (25-34); MEAN CORPUSCULAR HGB CONC 31 g/dL (32-36); MEAN CORPUSCULAR VOLUME 82 fL (80-99); MEAN PLATELET VOLUME 10.2 fL (9.0-12.2); MONOCYTES # (AUTO) 0.4 10^3/uL (0.0-1.0); MONOCYTES % (AUTO) 8 % (0-12); NEUTROPHILS # (AUTO) 1.5 10^3/uL (1.8-7.8); NEUTROPHILS % (AUTO) 34 % (42-75); PLATELET COUNT 319 10^3/uL (130-400); WHITE BLOOD COUNT 4.5 10^3/uL (4.3-11.0)
[2023-07-08 04:41] LABS: ALBUMIN 2.5 GM/DL (3.2-4.5); BILIRUBIN,TOTAL 0.2 MG/DL (0.1-1.0); CREATININE SERUM 0.68 MG/DL (0.60-1.30); MAGNESIUM 1.9 MG/DL (1.6-2.4); PHOSPHORUS 3.1 MG/DL (2.3-4.7); TOTAL PROTEIN 5.3 GM/DL (6.4-8.2)
[2023-07-08] MEDS: POTASSIUM CHLORIDE 20 MEQ TABLET PO SCH (04:55)
[2023-07-08] MEDS: MAGNESIUM 1 GM/100 ML IVPB 100 ML IV SCH (04:55)
[2023-07-08] MEDS: oxyCODONE IMMEDIATE RELEASE 5 MG TABLET PO PRN ×2 (05:54→20:33)
[2023-07-08 06:25] LABS: CREATININE SERUM 0.68 MG/DL (0.60-1.30); POTASSIUM 4.2 MMOL/L (3.6-5.0)
[2023-07-08] MEDS: SENNOSIDES 8.6 MG TABLET PO SCH ×2 (08:36→20:39)
[2023-07-08] MEDS: ENOXAPARIN 40 MG/0.4 ML SYRINGE SC SCH (08:36)
[2023-07-08] MEDS: DOCUSATE SODIUM 100 MG CAPSULE PO SCH ×2 (08:36→20:39)
--- NOTE | 2023-07-08 10:06 | Progress Note - Hospitalist ---
Subjective HPI/CC On Admission Date Seen by Provider: Jul 08, 2023 Time Seen by Provider: 11:00 Chief complaint: DKA HPI: This is a 22-year-old female who is in the hospital 2 weeks out of every month for DKA. No Suspected source of DKA.. Subjective/Events-last exam Feels better Sleeps a lot Sugars improved Focused Exam Lactate Level 07/06/23 00:10: Lactic Acid Level 1.71 07/06/23 21:10: Lactic Acid Level 6.11*H Objective Exam Vital Signs Vital Signs Date Time Temp Pulse Resp B/P (MAP) Pulse Ox O2 Delivery O2 Flow Rate FiO2 07/08/23 15:46 36.2 100 18 134/90 (105) 100 Room Air 07/06/23 23:46 21 Capillary Refill : Less Than 3 Seconds General Appearance: No Apparent Distress, WD/WN Results/Procedures Lab Laboratory Tests 07/07/23 16:25 07/08/23 04:00 07/08/23 06:00 Patient resulted labs reviewed. Assessment/Plan Assessment and Plan Assess & Plan/Chief Complaint DKA Move to 4th JOSIE SMYTH DO Jul 08, 2023 10:06
--- NOTE | 2023-07-08 10:38 | Tele-ICU Progress Note ---
Subjective Date Seen by a Provider: Jul 08, 2023 Time Seen by a Provider: 10:37 Subjective/Events-last exam (Tele-ICU Physician , Progress Note ) Service provided via interactive audio and video telecommunications E-CARE system to a patient admitted to ICU bed in [facility]. Patient is seen today due to persistent need of ICU care Available chart/ vitals / labs / Images reviewed Video assessment done using teleICU camera, rest of exam as per RN Discussed with RN Events overnight : Afebrile hemodynamically stable Pressors- no Hospital course: (07/06) 22yr F admitted for DKA. A/P DKA -Unclear precipitant, does not have insulin pump anymore *Insulin drip- anticipate to be stopped today - continue to monitor for resolution of acidosis, AG and electrolytes Anemia - styable VTE Prophylaxis: Stress Ulcer Prophylaxis: Plans in collaboration with bedside consultants and IM MDs. Discussed with RN to reach out if any questions or concerns Case and care daily discussed on multidisciplinary rounds ( RN, PharmD, Hoe Worker , Respiratory Therapy, experimental worker ) A total of _5 minutes of critical care time was devoted to this patient today, required to treat and/or prevent further deterioration of critical care condition ( as above ) . I am remotely monitoring this patient from another state. I am unable to do the bedside exam, and history/physical and pertinent information is taken from other notes in the computer and bedside staff. Sepsis Event Evaluation Height, Weight, BMI Height: 5'9.00" Weight: 255lbs. 0oz. 115.022104ah; 25.30 BMI Method:Stated Focused Exam Lactate Level 07/06/23 00:10: Lactic Acid Level 1.71 07/06/23 21:10: Lactic Acid Level 6.11*H Exam Exam Patient acknowledged, consented, and participated in this virtual visit which was conducted using real time audio/video Vital Signs Date Time Temp Pulse Resp B/P (MAP) Pulse Ox O2 Delivery O2 Flow Rate FiO2 07/08/23 10:00 83 7 131/94 (105) 100 Room Air 07/08/23 09:00 100 12 130/95 (105) 100 Room Air 07/08/23 08:00 93 10 128/97 (104) 100 Room Air 07/08/23 07:52 35.9 Room Air 07/08/23 07:00 86 14 110/72 (83) 99 Room Air 07/08/23 07:00 81 07/08/23 06:00 81 12 99 Room Air 07/08/23 06:00 112/75 (85) 99 Room Air 07/08/23 05:00 86 12 103/70 (81) 99 Room Air 07/08/23 04:45 35.8 07/08/23 04:21 96 Room Air 07/08/23 04:00 85 12 98/56 (70) 98 Room Air 07/08/23 03:00 100 10 136/99 (111) 100 Room Air 07/08/23 02:00 80 10 120/82 (95) 100 Room Air 07/08/23 01:00 35.7 110/72 (83) 99 Room Air 07/08/23 00:35 96 Room Air 07/08/23 00:26 96 07/08/23 00:00 115 10 130/85 (100) 100 Room Air 07/07/23 23:00 87 16 118/81 (93) 99 Room Air 07/07/23 22:00 94 15 129/88 (102) 100 Room Air 07/07/23 21:00 96 15 136/99 (111) 100 Room Air 07/07/23 20:00 93 17 118/79 (92) 100 Room Air 07/07/23 20:00 97 Room Air 07/07/23 19:52 35.9 07/07/23 19:00 87 13 94/52 (66) 100 Room Air 07/07/23 19:00 85 07/07/23 18:00 103 18 135/93 (104) 100 Room Air 07/07/23 17:00 105 14 125/89 (103) 100 Room Air 07/07/23 16:26 35.9 07/07/23 16:00 87 13 122/90 (95) 100 Room Air 07/07/23 15:05 98 Room Air 07/07/23 15:00 87 16 113/75 (90) 100 Room Air 07/07/23 14:00 94 14 96/50 (64) 99 Room Air 07/07/23 13:00 97 11 98/58 (72) 100 Room Air 07/07/23 12:29 100 07/07/23 12:00 95 26 138/95 (104) 100 Room Air 07/07/23 12:00 36.3 07/07/23 12:00 96 Room Air 07/07/23 11:00 97 12 126/91 (103) 100 Room Air I & O 07/08/23 07:00 Intake Total 6520 ml Balance 6520 ml Height & Weight Height: 5'9.00" Weight: 255lbs. 0oz. 115.745331ck; 25.30 BMI Method:Stated General Appearance: No Apparent Distress, WD/WN, Other (HYPERVENTILATING, DRY HEAVING ON ARRIVAL) HEENT: PERRL/EOMI, Moist Mucous Membranes Neck: Normal Inspection Respiratory: Normal Breath Sounds, No Accessory Muscle Use, No Respiratory Distress Cardiovascular: No Murmur, Tachycardia Capillary Refill: Less Than 3 Seconds Extremity: Normal Capillary Refill, Normal Inspection Neurologic/Psychiatric: Alert, Oriented x3, No Motor/Sensory Deficits, anesthesia attending II- XII Norm as Tested Skin: Normal Color, Warm/Dry; No Rash Results Lab Laboratory Tests 07/06/23 21:10 07/07/23 02:00 07/07/23 04:00 07/07/23 07:53 07/07/23 16:25 07/08/23 04:00 07/08/23 06:00 Assessment/Plan Assessment/Plan 1 FRANTZ ENCISO MD Jul 08, 2023 10:38
[2023-07-08] MEDS ORDERED: inSUlin DETERMIR 1 UNIT/0.01 ML (CHARGE PER UNIT) SQ ONE (10:45)
[2023-07-08] MEDS: NS IV 1000 ML 1,000 ML IV SCH (12:59)
[2023-07-08 14:00] VITALS: BP 117/78
[2023-07-08 15:46] VITALS: BP 134/90
[2023-07-08] MEDS: inSUlin ASPART 1 UNIT/0.01 ML (PER UNIT) SC SCH ×2 (16:06→20:28)
[2023-07-08 20:03] VITALS: BP 150/87
[2023-07-08] MEDS: inSUlin DETERMIR 1 UNIT/0.01 ML (CHARGE PER UNIT) SQ SCH (20:33)
[2023-07-09 00:21] VITALS: BP 131/73
[2023-07-09] MEDS: oxyCODONE IMMEDIATE RELEASE 5 MG TABLET PO PRN (01:57)
[2023-07-09] MEDS: NS IV 1000 ML 1,000 ML IV SCH (03:06)
[2023-07-09] MEDS: HYDROmorphone INJECTION 2 MG/ML VIAL IV PRN (03:06)
[2023-07-09 03:07] VITALS: BP 129/74
[2023-07-09 05:26] LABS: BASOPHILS % (AUTO) 1 % (0-10); EOSINOPHILS # (AUTO) 0.1 10^3/uL (0.0-0.3); EOSINOPHILS % (AUTO) 2 % (0-10); HEMATOCRIT 29 % (35-52); HEMOGLOBIN 8.9 g/dL (11.5-16.0); LYMPHOCYTES # (AUTO) 2.1 10^3/uL (1.0-4.0); LYMPHOCYTES % (AUTO) 51 % (12-44); MEAN CORPUSCULAR HEMOGLOBIN 26 pg (25-34); MEAN CORPUSCULAR HGB CONC 31 g/dL (32-36); MEAN CORPUSCULAR VOLUME 82 fL (80-99); MEAN PLATELET VOLUME 10.1 fL (9.0-12.2); MONOCYTES # (AUTO) 0.4 10^3/uL (0.0-1.0); MONOCYTES % (AUTO) 10 % (0-12); NEUTROPHILS # (AUTO) 1.6 10^3/uL (1.8-7.8); NEUTROPHILS % (AUTO) 37 % (42-75); PLATELET COUNT 300 10^3/uL (130-400); WHITE BLOOD COUNT 4.2 10^3/uL (4.3-11.0)
[2023-07-09 05:49] LABS: ALBUMIN 2.7 GM/DL (3.2-4.5); BILIRUBIN,TOTAL 0.2 MG/DL (0.1-1.0); CALCIUM 8.3 MG/DL (8.5-10.1); CREATININE SERUM 0.7 MG/DL (0.60-1.30); MAGNESIUM 1.7 MG/DL (1.6-2.4); POTASSIUM 4.4 MMOL/L (3.6-5.0); TOTAL PROTEIN 5.1 GM/DL (6.4-8.2)
[2023-07-09] MEDS: inSUlin ASPART 1 UNIT/0.01 ML (PER UNIT) SC SCH ×2 (06:03→10:51)
[2023-07-09 07:45] VITALS: BP 133/92
[2023-07-09] MEDS: ENOXAPARIN 40 MG/0.4 ML SYRINGE SC SCH (08:19)
[2023-07-09] MEDS: SENNOSIDES 8.6 MG TABLET PO SCH (08:19)
[2023-07-09] MEDS: DOCUSATE SODIUM 100 MG CAPSULE PO SCH (08:19)
[2023-07-09] MEDS: inSUlin DETERMIR 1 UNIT/0.01 ML (CHARGE PER UNIT) SQ SCH (08:20)
--- NOTE | 2023-07-09 11:11 | Discharge Summary ---
Discharge Summary Hospital Course Was the Problem List Reviewed?: Yes Problems/Dx: (1) DKA (diabetic ketoacidosis) Status: Acute (2) High anion gap metabolic acidosis Status: Acute (3) Type 1 diabetes mellitus Status: Chronic (4) Anxiety Status: Chronic (5) Tachycardia Status: Chronic (6) Anemia Status: Chronic Qualifiers: Hospital Course Date of Admission: Jul 06, 2023 at 22:45 Admission Diagnosis : Family Physician/Provider: Carlos Lyn DO Date of Discharge: 07/09/23 Discharge Diagnosis: [ ] Hospital Course: Short hospital course after admitted for DKA placed on insulin drip and transition to subcu insulin and discharge. Labs and Pending Lab Test: Laboratory Tests 07/08/23 11:31: Glucometer 201H 07/08/23 12:49: Glucometer 182H 07/08/23 16:00: Glucometer 298H 07/08/23 20:00: Glucometer 173H 07/09/23 05:06: White Blood Count 4.2L, Red Blood Count 3.48L, Hemoglobin 8.9L, Hematocrit 29L, Mean Corpuscular Volume 82, Mean Corpuscular Hemoglobin 26, Mean Corpuscular Hemoglobin Concent 31L, Red Cell Distribution Width 15.9H, Platelet Count 300, Mean Platelet Volume 10.1, Immature Granulocyte % (Auto) 0, Neutrophils (%) (Auto) 37L, Lymphocytes (%) (Auto) 51H, Monocytes (%) (Auto) 10, Eosinophils (%) (Auto) 2, Basophils (%) (Auto) 1, Neutrophils # (Auto) 1.6L, Lymphocytes # (Auto) 2.1, Monocytes # (Auto) 0.4, Eosinophils # (Auto) 0.1, Basophils # (Auto) 0.0, Immature Granulocyte # (Auto) 0.0, Sodium Level 139, Potassium Level 4.4, Chloride Level 104, Carbon Dioxide Level 23, Anion Gap 12, Blood Urea Nitrogen 5L, Creatinine 0.70, Estimat Glomerular Filtration Rate 127, BUN/Creatinine Ratio 7, Glucose Level 192H, Calcium Level 8.3L, Corrected Calcium 9.3, Magnesium Level 1.7, Total Bilirubin 0.2, Aspartate Amino Transf (AST/SGOT) 73H, Alanine Aminotransferase (ALT/SGPT) 33, Alkaline Phosphatase 155H, Total Protein 5.1L, Albumin 2.7L 07/09/23 10:30: Glucometer 173H Microbiology 07/06/23 MRSA Screen - Final, Complete MRSA not isolated Home Meds Active Reported Lantus Solostar (Insulin Glargine,Hum.rec.anlog) 100 Unit/Ml (3 Ml) Insuln.pen 6-8 Unit SQ BID Insulin Lispro Kwikpen U-100 (Insulin Lispro) 100 Unit/Ml Insuln.pen Units SC AC Tylenol Extra Strength (Acetaminophen) 500 Mg Tablet 1,000 Mg PO Q8H PRN Bupropion HCl 75 Mg Tablet 75 Mg PO BID LAST FILLED 02-22-2023 #180/90 DAY SUPPLY Assessment/Pt Instructions PCP in 1 week Discharge Planning: <30 minutes discharge planning Discharge Instructions Discharge Diet: ADA Diet Discharge Physical Examination Vital Signs Vital Signs Date Time Temp Pulse Resp B/P (MAP) Pulse Ox O2 Delivery O2 Flow Rate FiO2 07/09/23 08:00 Room Air 07/09/23 07:45 36.1 93 16 133/92 (106) 98 07/06/23 23:46 21 General Appearance: No Apparent Distress, WD/WN Allergies: Coded Allergies: bismuth subsalicylate (Verified Allergy, Unknown, 08/29/22) latex (Unverified Allergy, Unknown, 01/09/23) Discharge Summary Date of Admission Jul 06, 2023 at 22:45 Date of Discharge Discharge Date: Jul 09, 2023 Admission Diagnosis Supportive care Insulin drip I personally performed the arredondo portions of the visit, discussed case with resident and concur with resident documentation of history, physical exam, assessment and treatment plan unless otherwise noted. Discharge Diagnosis DKA Move to 4th (1) DKA (diabetic ketoacidosis) Onset Date: 05/14/2023 Status: Acute Assessment & Plan: Patient noted to have anion gap metabolic acidosis, elevated beta hydroxybutyrate and lactic acidosis consistent with diabetic ketoacidosis. Plan: Continue insulin drip and titrate until gap closes Continue potassium drip (2) High anion gap metabolic acidosis Status: Acute Assessment & Plan: See above (3) Type 1 diabetes mellitus Status: Chronic Assessment & Plan: See above. Holding off on home medications for now (4) Anxiety Status: Chronic Assessment & Plan: On Wellbutrin, will hold medications for now. (5) Tachycardia Status: Chronic Assessment & Plan: Chronically tachycardic, per her report her rates are typically in the 90s to 110s. She denies any cardiac symptoms at this time. Otherwise stable (6) Anemia Status: Chronic Assessment & Plan: Patient noted to have anemia to 9.1. It was also noted that the rest of the cell lines did not drop despite patient being on insulin. P jenniferdwain does note that she is on her period and this likely explains her current anemia. Qualifiers: JOSIE SMYTH DO Jul 09, 2023 11:11
[2023-07-09 11:28] VITALS: BP 128/89
[2023-07-09 12:43] VITALS: BP 128/89
== END 2023-07-09 12:43 | disposition home or self-care (01) | DRG 639 ==
LOC: EDUNIT# 20:56 → ER 20:58 → ICU 22:45 → 4TH 07-08 13:48
PROVIDERS: ADMIT Internal Medicine; ATTEND Internal Medicine
DX: E10.10 Type 1 diabetes mellitus with ketoacidosis without coma (principal); Z91.148 Patient's other noncompliance with medication regimen for other reason; F41.9 Anxiety disorder, unspecified; R00.0 Tachycardia, unspecified; D64.9 Anemia, unspecified; Z79.4 Long term (current) use of insulin; Z20.822 Contact with and (suspected) exposure to COVID-19; Z23 Encounter for immunization; Z91.09 Other allergy status, other than to drugs and biological substances; Z79.1 Long term (current) use of non-steroidal anti-inflammatories (NSAID); Z79.899 Other long term (current) drug therapy
CPT/HCPCS: 36415; 36600; 80048; 80053; 80306; 81000; 82010; 82150; 82805; 82947; 83605; 83690; 83735; 84100; 84703; 85025; 87081; 87636; 93041; 96374; 96375

== ENCOUNTER 2023-07-20 22:14 | Inpatient (IN) | payer BC, MEDICAID ==
[~2023-07-20] VITALS: Ht 175 cm; Wt 81.0 kg
[2023-07-20] MEDS ORDERED: NS IV 1000 ML 1,000 ML IV SCH ×2 (23:00→23:30)
[2023-07-20] MEDS ORDERED: ONDANSETRON INJECTION 4 MG/2 ML (SDV) IVP ONE (23:00)
[2023-07-20] MEDS ORDERED: PIPERACILLIN/Tazobactam 4.5 GM in NS (IVPB) 100 ML 100 ML IV ONE (23:00)
[2023-07-20 23:26] LABS: BASOPHILS # (AUTO) 0.1 10^3/uL (0.0-0.1); BASOPHILS % (AUTO) 1 % (0-10); EOSINOPHILS # (AUTO) 0.1 10^3/uL (0.0-0.3); EOSINOPHILS % (AUTO) 2 % (0-10); HEMATOCRIT 32 % (35-52); LYMPHOCYTES # (AUTO) 2.2 10^3/uL (1.0-4.0); LYMPHOCYTES % (AUTO) 24 % (12-44); MEAN CORPUSCULAR HEMOGLOBIN 26 pg (25-34); MEAN CORPUSCULAR HGB CONC 31 g/dL (32-36); MEAN CORPUSCULAR VOLUME 82 fL (80-99); MEAN PLATELET VOLUME 10.4 fL (9.0-12.2); MONOCYTES # (AUTO) 0.9 10^3/uL (0.0-1.0); MONOCYTES % (AUTO) 10 % (0-12); NEUTROPHILS # (AUTO) 5.6 10^3/uL (1.8-7.8); NEUTROPHILS % (AUTO) 62 % (42-75); PLATELET COUNT 425 10^3/uL (130-400); WHITE BLOOD COUNT 8.9 10^3/uL (4.3-11.0)
[2023-07-20] MEDS ORDERED: KETOROLAC INJ 30 MG/ML VIAL IVP ONE (23:30)
[2023-07-20 23:31] LABS: INR 0.9 (0.8-1.4); PROTHROMBIN TIME PATIENT 12.5 SEC (12.2-14.7)
[2023-07-20 23:41] LABS: ALBUMIN 3.2 GM/DL (3.2-4.5)
[2023-07-20 23:41] LABS: AMPHETAMINE SCREEN, URINE NEGATIVE (NEGATIVE); BARBITURATE SCREEN URINE NEGATIVE (NEGATIVE); CANNABINOID SCREEN, URINE NEGATIVE (NEGATIVE); COCAINE SCREEN URINE NEGATIVE (NEGATIVE); METHADONE STAT NEGATIVE (NEGATIVE); OPIATE SCREEN URINE NEGATIVE (NEGATIVE); OXYCODONE STAT NEGATIVE (NEGATIVE); TRICYCLIC ANTIDEPRESSANTS SCRE NEGATIVE (NEGATIVE)
[2023-07-20 23:42] LABS: BILIRUBIN,URINE NEGATIVE (NEGATIVE); CLARITY,URINE CLEAR; COLOR,URINE YELLOW; GLUCOSE, URINE (UA) 3+ (NEGATIVE); KETONES,URINE 1+ (NEGATIVE); LEUKOCYTE ESTERASE ,URINE NEGATIVE (NEGATIVE); NITRITE,URINE NEGATIVE (NEGATIVE); PROTEIN,URINE NEGATIVE (NEGATIVE); WBC,URINE 0-2 /HPF
[2023-07-20 23:42] LABS: POTASSIUM 4.4 MMOL/L (3.6-5.0)
[2023-07-20 23:43] LABS: BACTERIA,URINE FEW /HPF
[2023-07-20 23:44] LABS: TOTAL PROTEIN 6.6 GM/DL (6.4-8.2)
[2023-07-20 23:45] LABS: ERYTHROCYTE SEDIMENTATION RATE 53 MM/HR (0-20)
[2023-07-20 23:46] LABS: BILIRUBIN,TOTAL 0.2 MG/DL (0.1-1.0)
[2023-07-20 23:48] LABS: CREATININE SERUM 0.85 MG/DL (0.60-1.30)
[2023-07-21] MEDS ORDERED: NS IV 1000 ML 1,000 ML IV SCH (01:30)
[2023-07-21] MEDS ORDERED: 1/2 NS IV SOLUTION 1000 ML 1,000 ML IV SCH (01:30)
[2023-07-21] MEDS ORDERED: NS IV 500 ML 500 ML IV PRN (01:30)
[2023-07-21] MEDS ORDERED: POTASSIUM CL 10MEQ/50ML IVPB 50 ML IV SCH (01:30)
[2023-07-21] MEDS ORDERED: NS IV 1000 ML 1,000 ML ONE (01:39)
[2023-07-21] MEDS ORDERED: ACETAMINOPHEN 500 MG TABLET PO PRN (02:15)
[2023-07-21] MEDS ORDERED: fentaNYL INJECTION 100 MCG/2 ML VIAL IV PRN (02:15)
[2023-07-21] MEDS ORDERED: ONDANSETRON INJECTION 4 MG/2 ML (SDV) IV PRN (02:15)
[2023-07-21] MEDS ORDERED: EPINEPHrine 1 MG INJECTION 4 MG in NS (IVPB) 250 ML 248 ML IV SCH (02:30)
[2023-07-21] MEDS: KETOROLAC INJ 30 MG/ML VIAL IVP PRN ×2 (02:45→21:29)
[2023-07-21] MEDS ORDERED: VANCOMYCIN 1500MG/300ML PREMIX IV ONE (03:00)
[2023-07-21 03:16] LABS: HEMATOCRIT 26 % (35-52); HEMOGLOBIN 8.3 g/dL (11.5-16.0); MEAN CORPUSCULAR HEMOGLOBIN 26 pg (25-34); MEAN CORPUSCULAR HGB CONC 32 g/dL (32-36); MEAN CORPUSCULAR VOLUME 82 fL (80-99); PLATELET COUNT 309 10^3/uL (130-400); WHITE BLOOD COUNT 7.4 10^3/uL (4.3-11.0)
[2023-07-21] MEDS ORDERED: inSUlin (REGULAR) HUMAN 1 UNIT/0.01 ML (CHARGE PER UNIT) IV ONE (03:30)
[2023-07-21] MEDS: NOREPINEPHRINE 8 MG/250 ML 250 ML IV SCH ×2 (03:31→19:35)
[2023-07-21] MEDS: VASOPRESSIN INJECTION 20 UNIT in NS (IVPB) 100 ML 100 ML IV SCH ×2 (03:31→14:30)
[2023-07-21] MEDS ORDERED: LACTATED RINGERS 1,000 ML 1,000 ML IV ONE (03:38)
[2023-07-21] MEDS: POTASSIUM CL 10MEQ/50ML IVPB 50 ML IV SCH ×7 (04:05→10:08)
[2023-07-21] MEDS: LACTATED RINGERS 1,000 ML 1,000 ML IV SCH ×3 (04:06→11:34)
--- NOTE | 2023-07-21 04:16 | ED General ---
General Chief Complaint: Breast Complaints Stated Complaint: DKA,COVID 19;R MASTITIS Nursing Triage Note: PT AMB TO RM 10 W C/O RIGHT BREAST SWELLING, PAIN, AND REDNESS X1 WK. A&OX4. Nursing Sepsis Screen: No Definite Risk Source of Information: Patient, Old Records History of Present Illness Date Seen by Provider: Jul 20, 2023 Time Seen by Provider: 22:45 Initial Comments PT ARRIVES VIA POV FROM HOME PT WITH MULTIPLE COMPLAINTS PT C/O PAINFUL RIGHT BREAST LUMP X 1 WEEK, WITH REDNESS AND SWELLING STATES SHE WENT TO [facility] AND WAS PRESCRIBED BACTRIM ON 07/13/23. SHE STATES SHE HAS NOT MISSED ANY DOSES PAIN AND SWELLING AND REDNESS TO THE BREAST HAVE INCREASED PT HAS HAD FEVER OF 99.9 SINCE YESTERDAY, TOOK TYLENOL THIS AM SHE HAS HAD PIERCINGS TO BOTH BREASTS, AND TOOK THEM OUT WHEN THIS BEGAN C/O NAUSEA, NO VOMITING PT IS TYPE 1 DIABETIC WITH A MULTITUDE OF VISITS/ADMITS FOR DKA--THIS IS HER 3RD VISIT AND ADMIT IN THE LAST 3 WEEKS FOR DKA SHE C/O ELEVATED BLOOD SUGARS TODAY. SHE FEELS LIKE SHE IS IN DKA LAST ADMIT 07/06-07/09/23 LAST HGB A1C ON 06/26/23 WAS 10.2 SHE HAS HAD SOME BODY ACHES AND MILD NASAL CONGESTION WELL. PCP: [facility] Allergies and Home Medications Allergies Coded Allergies: bismuth subsalicylate (Verified Allergy, Unknown, 08/29/22) latex (Unverified Allergy, Unknown, 01/09/23) Patient Home Medication List Home Medication List Reviewed: Yes Acetaminophen (Tylenol Extra Strength) 500 Mg Tablet, 1,000 MG PO Q8H PRN for PAIN-MILD (1-4), (Reported) Entered as Reported by: COLT BOURNE on 02/28/23 1150 Bupropion HCl (Bupropion HCl) 75 Mg Tablet, 75 MG PO BID, (Reported) Entered as Reported by: COLT BOURNE on 02/28/23 1150 Insulin Glargine,Hum.rec.anlog (Lantus Solostar) 100 Unit/Ml (3 Ml) Insuln.pen, 6-8 UNIT SQ BID, (Reported) Entered as Reported by: COLT BOURNE on 06/26/23 1438 Insulin Lispro (Insulin Lispro Kwikpen U-100) 100 Unit/Ml Insuln.pen, UNITS SC AC, (Reported) Entered as Reported by: COLT BOURNE on 06/26/23 1438 Review of Systems Review of Systems Constitutional: see HPI, fever, weakness EENTM: no symptoms reported Respiratory: no symptoms reported Cardiovascular: no symptoms reported Gastrointestinal: see HPI; No abdominal pain; nausea; No vomiting Genitourinary: frequency Musculoskeletal: no symptoms reported Skin: see HPI Psychiatric/Neurological: No Symptoms Reported Hematologic/Lymphatic: No Symptoms Reported Immunological/Allergic: no symptoms reported Past Sxqvgkj-Lvoirk-Dkmgsa Hx Patient Social History Tobacco Use?: No Smoking Status: Never a Smoker Smokeless Tobacco Frequency: Never a User Use of E-Cig and/or Vaping dev: Yes E-Cig or Vaping type used: Nicotine Use of E-Cig and/or Vaping Tom: Current Everyday User Substance use?: No Alcohol Use?: Yes Alcohol Frequency: Once in a while Pt feels they are or have been: No Immunizations Up To Date Tetanus Booster (TDap): Less than 5yrs PED Vaccines UTD: Yes Influenza Vaccine Up-to-Date: No; Not Current First/Initial COVID19 Vaccinat: APR 2021 Second COVID19 Vaccination [place]: MAY 2021 Third COVID19 Vaccination Date: APR 2021 Seasonal Allergies Seasonal Allergies: No Past Medical History Surgery/Hospitalization HX: T1DM, PORT PLACEMENT Surgeries: Yes (RIGHT PORT) Respiratory: No Currently Using CPAP: No Currently Using BIPAP: No Cardiac: Yes (TACHYCARDIA) Palpitations Neurological: No Reproductive Disorders: No Female Reproductive Disorders: Denies Sexually Transmitted Disease: No HIV/AIDS: No Genitourinary: Yes Bladder Infection Gastrointestinal: Yes (CANNABIS HYPEREMESIS; CHRONIC 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 DX AGE 12) Diabetes, Insulin dep HEENT: No Loss of Vision: Denies Hearing Impairment: Denies Cancer: No Psychosocial: Yes Anxiety, Depression Integumentary: No Blood Disorders: No Adverse Reaction/Blood Tranf: No Family Medical History No Pertinent Family Hx, Other Conditions/Hx SOCIAL HISTORY: -SMOKING DENIES USE; DOES VAPE NICOTINE -ETOH DENIES USE -DRUGS--THC IN PAST, NO RECENT USE DELIVERED 12/07/22--STILLBORN AT 29/30 WEEKS GESTATION. Physical Exam Vital Signs Vital Signs - First Documented 07/20/23 22:48 Temp 36.8 Pulse 125 Resp 18 B/P (MAP) 129/78 (95) Pulse Ox 100 O2 Delivery Room Air Capillary Refill : Less Than 3 Seconds Height, Weight, BMI Height: 5'9.00" Weight: 255lbs. 0oz. 115.349031lb; 25.95 BMI Method:Stated General Appearance: No Apparent Distress, WD/WN, Other (HAIR IS DYED ORANGE; DOES NOT APPEAR ACUTELY ILL OR TO BE IN ANY DISCOMFORT OR DISTRESS. 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 THERE IS SCANT AMOUNT OF DRAINAGE FROM SIDES OF NIPPLE AT 3:00 AND 9:00. NO FLUCTUANT AREAS. ) Focused Exam Sepsis Stage: Sepsis Possible Source: Skin/Soft Tissue (BUT ALSO MAY BE DUE TO COVID AND / OR DKA) Lactate Level 07/20/23 23:10: Lactic Acid Level 2.52*H Time of Focused Exam: 00:10 Respiratory: Normal Breath Sounds, No Accessory Muscle Use, No Respiratory Distress Cardiovascular: Tachycardia Capillary Refill: Less Than 3 Seconds Skin: normal color, warm/dry Lactic Acid Level Laboratory Tests Test 07/20/23 23:10 Lactic Acid Level 2.52 MMOL/L (0.50-2.00) *H Within 3hrs of presentation: Admin fluids, Admin ABX, Blood cultures prior to ABX's, Focus exam, Lactate level Procedures/Interventions Date of ETT Placement: Feb 18, 2021 Time of ETT Placement: 1432 Progress/Results/Core Measures Suspected Sepsis Infection Criteria Present: Suspected New Infection Sepsis Screen: No Definite Risk SIRS Temperature: Pulse: 103 Respiratory Rate: 18 Laboratory Tests 07/20/23 23:10: White Blood Count 8.9 Blood Pressure 128 /97 Mean: 100 07/20/23 23:10: Lactic Acid Level 2.52*H Laboratory Tests 07/20/23 23:10: Creatinine 0.85, INR Comment 0.9, Platelet Count 425H, Total Bilirubin 0.2 Results/Orders Lab Results Laboratory Tests Test 07/20/23 00:41 07/20/23 22:55 07/20/23 23:01 07/20/23 23:10 Range/Units Venous Blood pH 7.36 7.31-7.41 Venous Blood Partial Pressure CO2 36 L 40-52 MMHG Venous Blood HCO3 20 L 22-28 MMOL/L Urine Color YELLOW Urine Clarity CLEAR Urine pH 5.0 5-9 Urine Specific [place] 1.020 1.016-1.022 Urine Protein NEGATIVE NEGATIVE Urine Glucose (UA) 3+ H NEGATIVE Urine Ketones 1+ H NEGATIVE Urine Nitrite NEGATIVE NEGATIVE Urine Bilirubin NEGATIVE NEGATIVE Urine Urobilinogen 0.2 < = 1.0 MG/DL Urine Leukocyte Esterase NEGATIVE NEGATIVE Urine RBC (Auto) 3+ H NEGATIVE Urine RBC 10-25 H /HPF Urine WBC 0-2 /HPF Urine Squamous Epithelial Cells 10-25 H /HPF Urine Crystals NONE /LPF Urine Bacteria FEW H /HPF Urine Casts NONE /LPF Urine Mucus SMALL H /LPF Urine Culture Indicated NO Urine Opiates Screen NEGATIVE NEGATIVE Urine Oxycodone Screen NEGATIVE NEGATIVE Urine Methadone Screen NEGATIVE NEGATIVE Urine Barbiturates Screen NEGATIVE NEGATIVE Ur Tricyclic Antidepressants Screen NEGATIVE NEGATIVE Urine Phencyclidine Screen NEGATIVE NEGATIVE Urine Amphetamines Screen NEGATIVE NEGATIVE Urine Methamphetamines Screen NEGATIVE NEGATIVE Urine Benzodiazepines Screen NEGATIVE NEGATIVE Urine Cocaine Screen NEGATIVE NEGATIVE Urine Cannabinoids Screen NEGATIVE NEGATIVE Glucometer 358 H 70-110 MG/DL White Blood Count 8.9 4.3-11.0 10^3/uL Red Blood Count 3.90 3.80-5.11 10^6/uL Hemoglobin 10.0 L 11.5-16.0 g/dL Hematocrit 32 L 35-52 % Mean Corpuscular Volume 82 80-99 fL Mean Corpuscular Hemoglobin 26 25-34 pg Mean Corpuscular Hemoglobin Concent 31 L 32-36 g/dL Red Cell Distribution Width 17.0 H 10.0-14.5 % Platelet Count 425 H 130-400 10^3/uL Mean Platelet Volume 10.4 9.0-12.2 fL Immature Granulocyte % (Auto) 1 % Neutrophils (%) (Auto) 62 42-75 % Lymphocytes (%) (Auto) 24 12-44 % Monocytes (%) (Auto) 10 0-12 % Eosinophils (%) (Auto) 2 0-10 % Basophils (%) (Auto) 1 0-10 % Neutrophils # (Auto) 5.6 1.8-7.8 10^3/uL Lymphocytes # (Auto) 2.2 1.0-4.0 10^3/uL Monocytes # (Auto) 0.9 0.0-1.0 10^3/uL Eosinophils # (Auto) 0.1 0.0-0.3 10^3/uL Basophils # (Auto) 0.1 0.0-0.1 10^3/uL Immature Granulocyte # (Auto) 0.1 0.0-0.1 10^3/uL Erythrocyte Sedimentation Rate 53 H 0-20 MM/HR Prothrombin Time 12.5 12.2-14.7 SEC INR Comment 0.9 0.8-1.4 Activated Partial Thromboplast Time 22 L 24-35 SEC Sodium Level 135 135-145 MMOL/L Potassium Level 4.4 3.6-5.0 MMOL/L Chloride Level 100 98-107 MMOL/L Carbon Dioxide Level 20 L 21-32 MMOL/L Anion Gap 15 H 5-14 MMOL/L Blood Urea Nitrogen 15 7-18 MG/DL Creatinine 0.85 0.60-1.30 MG/DL Estimat Glomerular Filtration Rate 101 BUN/Creatinine Ratio 18 Glucose Level 491 *H 70-105 MG/DL Lactic Acid Level 2.52 *H 0.50-2.00 MMOL/L Calcium Level 9.0 8.5-10.1 MG/DL Corrected Calcium 9.6 8.5-10.1 MG/DL Magnesium Level 2.0 1.6-2.4 MG/DL Total Bilirubin 0.2 0.1-1.0 MG/DL Aspartate Amino Transf (AST/SGOT) 25 5-34 U/L Alanine Aminotransferase (ALT/SGPT) 13 0-55 U/L Alkaline Phosphatase 234 H 40-136 U/L C-Reactive Protein High Sensitivity 4.19 H 0.00-0.50 MG/DL Total Protein 6.6 6.4-8.2 GM/DL Albumin 3.2 3.2-4.5 GM/DL Amylase Level 60 25-125 U/L Lipase 50 8-78 U/L Beta-Hydroxybutyrate (Chem panel) 1.27 H 0.00-0.27 MMOL/L Serum Test, Qualitative NEGATIVE NEGATIVE Test 07/20/23 23:40 Range/Units Influenza Type A (RT-PCR) Not Detected Not Detecte Influenza Type B (RT-PCR) Not Detected Not Detecte SARS-CoV-2 RNA (RT-PCR) Detected H Not Detecte My Orders Orders - LADONNA RANGEL DO Accucheck Stat ONCE (07/20/23:47) Ed Iv/Invasive Line Start (07/20/23:47) Monitor-Rhythm Ecg Trace Only (07/20/23:47) Amylase (07/20/23:47) Cbc And Automated Diff (07/20/23) Comprehensive Metabolic Panel (07/20/23:) Hs C Reactive Protein (07/20/23:47) Drug Screen Stat (Urine) (07/20/23:47) Hcg,Qualitative Serum (07/20/23:) Lactic Acid Analyzer (07/20/23:47) Lipase (07/20/23:47) Magnesium (07/20/23:47) Ua Culture If Indicated (07/20/23:47) Blood Culture (07/20/23:47) Erythrocyte Sedimentation Rate (07/20/23:47) Chest 1 View, Ap/Pa Only (07/20/23:47) Covid 19 Inhouse Test (07/20/23:47) Sputum Culture (07/20/23:47) Urine Culture (07/20/23:47) Protime With Inr (07/20/23:47) Partial Thromboplastin Time (07/20/23:47) Ed Iv/Invasive Line Start (07/20/23:47) Ed Iv/Invasive Line Start (07/20/23:47) Vital Signs Adult Sepsis Patie Q15M (07/20/23:47) Remove Rings In Anticipation O (07/20/23:47) Ns Iv 1000 Ml (Ns Iv 1000 Ml) (07/20/23 23:00) Piperacillin/Tazobactam (Piperacillin/Ta (07/20/23 23:00) Influenza A And B By Pcr (07/20/23 22:47) Beta Hydroxybutyrate (07/20/23 22:47) Ondansetron Injection (Ondansetron Inj (07/20/23 23:00) Ketorolac Injection (Ketorolac Injection (07/20/23 23:30) Ed Iv/Invasive Line Start (07/20/23 23:28) Ns Iv 1000 Ml (Ns Iv 1000 Ml) (07/20/23 23:30) Venous Blood Gas (07/20/23 23:59) Wound Culture (07/21/23 00:35) Medications Given in ED Current Medications Medications Dose Ordered Sig/Thierno Route Start Time Stop Time Status Last Admin Dose Admin Ketorolac Tromethamine 30 mg ONCE ONCE IVP 07/20/23 23:30 07/20/23 23:31 DC 07/21/23 00:20 30 MG Ondansetron HCl 4 mg ONCE ONCE IVP 07/20/23 23:00 07/20/23 23:01 DC 07/20/23 23:08 4 MG Piperacillin Sod/ Tazobactam Sod 4.5 gm/Sodium Chloride 100 ml @ 200 mls/hr ONCE ONCE IV 07/20/23 23:00 07/20/23 23:29 DC 07/21/23 00:20 200 MLS/HR Vital Signs/I&O 07/20/23 22:48 Temp 36.8 Pulse 125 Resp 18 B/P (MAP) 129/78 (95) Pulse Ox 100 O2 Delivery Room Air Capillary Refill : Less Than 3 Seconds Blood Pressure Mean: 100 Point of Care Testing Finger Stick Blood Glucose: 358 Blood Glucose Action Taken: RN / PHYS NOTIFIED Progress Note : Progress Note PLACED IN ISOLATION ROOM PPE WORN SEPSIS PROTOCOL INITIATED VITALS ON ARRIVAL: TEMP 36.8=98.2, HR 125, RR 18, BP 129/78, O2 SAT 100% ON ROOM AIR GIVEN: -IV FLUIDS -ZOSYN -TORADOL -ZOFRAN LABS: -CBC WITH WBC 8.9, HGB 10.0, PLT 425,000 -CMP WITH NA 135, K 4.4, CO2 20, ANION GAP 15, GLUCOSE 491, BUN 15, CR 0.85, LFT'S NORMAL -AMYLASE/LIPASE NORMAL -MG NORMAL -SED RATE 53 -CRP 4.19 -UA WITH 3+ GLUCOSE, 1+ KETONES, 10-25 RBC, FEW BACTERIA -HCG NEGATIVE -BETAHYDROXYBUTYRATE 1.27 -LACTIC ACID 2.52 -PT/PTT/INR NORMAL -VENOUS BLOOD GAS WITH PH 7.36, PCO2 36, HCO3 20 -COVID POSITIVE, FLU NEGATIVE 0035--SMALL AMOUNT OF DRAINAGE FROM BOTH SIDES OF RIGHT NIPPLE-CULTURED AND SENT TO LAB NO DETERIORATION IN PT'S CONDITION DURING ER STAY DISCUSSED TEST RESULTS, NEED FOR ADMIT AND PT IS AGREEABLE TO PLAN REVIEWED PRIOR RECORDS, INCLUDING ER VISITS, ADMITS, H&P'S, CONSULTS, DISCHARGE SUMMARIES, TESTS/PROCEDURES Departure Communication (Admissions) 002--SPOKE WITH DR. RUBI, HOSPITALIST FOR [facility]. ACCEPTS PT FOR ADMIT. 27--REPORT TO DR. OGDEN, E-ICU PHYSICIAN. Impression Primary Impression: DKA (diabetic ketoacidosis) Additional Impressions: Uncontrolled type 1 diabetes mellitus COVID-19 Acute mastitis of right breast Infected pierced nipple Sepsis Disposition: ADMITTED INPATIENT Condition: Stable Admissions Decision to Admit Reason: Admit from ER (General) Decision to Admit/Date: Jul 21, 2023 Time/Decision to Admit Time: 00:25 Departure-Patient Inst. Referrals: COLT LAMBERT DO (PCP) Primary Care Physician LADONNA RANGEL DO Jul 21, 2023 04:16
[2023-07-21 05:24] LABS: BASOPHILS % (AUTO) 0 % (0-10); EOSINOPHILS # (AUTO) 0.1 10^3/uL (0.0-0.3); EOSINOPHILS % (AUTO) 1 % (0-10); HEMATOCRIT 27 % (35-52); HEMOGLOBIN 8.4 g/dL (11.5-16.0); LYMPHOCYTES % (AUTO) 40 % (12-44); MEAN CORPUSCULAR HEMOGLOBIN 26 pg (25-34); MEAN CORPUSCULAR HGB CONC 31 g/dL (32-36); MEAN CORPUSCULAR VOLUME 84 fL (80-99); MEAN PLATELET VOLUME 9.8 fL (9.0-12.2); MONOCYTES # (AUTO) 1.1 10^3/uL (0.0-1.0); MONOCYTES % (AUTO) 11 % (0-12); NEUTROPHILS # (AUTO) 4.7 10^3/uL (1.8-7.8); NEUTROPHILS % (AUTO) 47 % (42-75); PLATELET COUNT 332 10^3/uL (130-400); WHITE BLOOD COUNT 9.9 10^3/uL (4.3-11.0)
[2023-07-21 05:48] LABS: ALBUMIN 2.7 GM/DL (3.2-4.5); BILIRUBIN,TOTAL 0.2 MG/DL (0.1-1.0); CALCIUM 7.8 MG/DL (8.5-10.1); CREATININE SERUM 0.8 MG/DL (0.60-1.30); MAGNESIUM 1.6 MG/DL (1.6-2.4); PHOSPHORUS 2.5 MG/DL (2.3-4.7); POTASSIUM 3.4 MMOL/L (3.6-5.0); TOTAL PROTEIN 5.3 GM/DL (6.4-8.2)
[2023-07-21] MEDS: MAGNESIUM 1 GM/100 ML IVPB 100 ML IV SCH ×3 (05:57→10:10)
[2023-07-21] MEDS: POTASSIUM CHLORIDE 20 MEQ TABLET PO SCH (05:57)
[2023-07-21] MEDS ORDERED: POTASSIUM CL 10MEQ/50ML IVPB 200 ML IV ONE (06:00)
[2023-07-21] MEDS ORDERED: MAGNESIUM 1 GM/100 ML IVPB 400 ML IV ONE (06:00)
[2023-07-21] MEDS: PIPERACILLIN/Tazobactam 4.5 GM in NS (IVPB) 100 ML 100 ML IV SCH ×4 (06:22→21:30)
[2023-07-21] MEDS: D5 1/2 NS 1,000 ML IV 1,000 ML IV SCH ×2 (06:45→11:13)
--- NOTE | 2023-07-21 07:59 | Diagnostic Imaging Report ---
INDICATION: Fever and dyspnea. COMPARISON: 04/04/2023. DISCUSSION: Single portable upright view of the chest was obtained. Right-sided port is stable. Normal heart size. No consolidation, pleural fluid, or pneumothorax. No osseous abnormality. IMPRESSION: 1. Negative chest. Dictated by: Dictated on workstation # [id number]
--- NOTE | 2023-07-21 08:38 | Tele-ICU Consult ---
Progress Note 22 y/o female with hx of DM presents to ED with swelling and redness in her right breast and a BS of 491, CO2 of 11 and DKA. Currently resting comfortably HR: 75 BP: 124/83 Pulse Ox 99% IMP: DKA Mastitis PLAN: insulin drip IV antibiotics (trying to get 2nd IV line) Time spent in review : 20 minutes I am monitoring this patient remotely from another state. The review is based upon review of the medical records, tele visulaization and discussion with the nursing staff Focused Exam Lactate Level 07/20/23 23:10: Lactic Acid Level 2.52*H 07/21/23 03:00: Lactic Acid Level 0.93 Height, Weight, BMI Height: 5'9.00" Weight: 255lbs. 0oz. 115.691336xl; 26.48 BMI Method:Stated Time of Focused Exam: 00:10 Labs Laboratory Tests 07/20/23 23:10 07/21/23 03:00 07/21/23 05:10 Results Results/Procedures Labs Laboratory Tests 07/20/23 23:10 07/21/23 03:00 07/21/23 05:10 Patient resulted labs reviewed. Results Labs Labs Laboratory Tests 07/20/23 22:55: Urine Color YELLOW, Urine Clarity CLEAR, Urine pH 5.0, Urine Specific [place] 1.020, Urine Protein NEGATIVE, Urine Glucose (UA) 3+H, Urine Ketones 1+H, Urine Nitrite NEGATIVE, Urine Bilirubin NEGATIVE, Urine Urobilinogen 0.2, Urine Leukocyte Esterase NEGATIVE, Urine RBC (Auto) 3+H, Urine RBC 10-25H, Urine WBC 0-2, Urine Squamous Epithelial Cells 10-25H, Urine Crystals NONE, Urine Bacteria FEWH, Urine Casts NONE, Urine Mucus SMALLH, Urine Culture Indicated NO, Urine Opiates Screen NEGATIVE, Urine Oxycodone Screen NEGATIVE, Urine Methadone Screen NEGATIVE, Urine Barbiturates Screen NEGATIVE, Ur Tricyclic Antidepressants Screen NEGATIVE, Urine Phencyclidine Screen NEGATIVE, Urine Amphetamines Screen NEGATIVE, Urine Methamphetamines Screen NEGATIVE, Urine Benzodiazepines Screen NEGATIVE, Urine Cocaine Screen NEGATIVE, Urine Cannabinoids Screen NEGATIVE 07/20/23 23:01: Glucometer 358H 07/20/23 23:10: White Blood Count 8.9, Red Blood Count 3.90, Hemoglobin 10.0L, Hematocrit 32L, Mean Corpuscular Volume 82, Mean Corpuscular Hemoglobin 26, Mean Corpuscular Hemoglobin Concent 31L, Red Cell Distribution Width 17.0H, Platelet Count 425H, Mean Platelet Volume 10.4, Immature Granulocyte % (Auto) 1, Neutrophils (%) (Aut o) 62, Lymphocytes (%) (Auto) 24, Monocytes (%) (Auto) 10, Eosinophils (%) (Auto) 2, Basophils (%) (Auto) 1, Neutrophils # (Auto) 5.6, Lymphocytes # (Auto) 2.2, Monocytes # (Auto) 0.9, Eosinophils # (Auto) 0.1, Basophils # (Auto) 0.1, Immature Granulocyte # (Auto) 0.1, Erythrocyte Sedimentation Rate 53H, Prothrombin Time 12.5, INR Comment 0.9, Activated Partial Thromboplast Time 22L, Sodium Level 135, Potassium Level 4.4, Chloride Level 100, Carbon Dioxide Level 20L, Anion Gap 15H, Blood Urea Nitrogen 15, Creatinine 0.85, Estimat Glomerular Filtration Rate 101, BUN/Creatinine Ratio 18, Glucose Level 491*H, Lactic Acid Level 2.52*H, Calcium Level 9.0, Corrected Calcium 9.6, Magnesium Level 2.0, Total Bilirubin 0.2, Aspartate Amino Transf (AST/SGOT) 25, Alanine Graham otransferase (ALT/SGPT) 13, Alkaline Phosphatase 234H, C-Reactive Protein High Sensitivity 4.19H, Total Protein 6.6, Albumin 3.2, Amylase Level 60, Lipase 50, Beta-Hydroxybutyrate (Chem panel) 1.27H, Serum Test, Qualitative NEG ATIVE 07/20/23 23:40: Influenza Type A (RT-PCR) Not Detected, Influenza Type B (RT-PCR) Not Detected, SARS-CoV-2 RNA (RT-PCR) DetectedH 07/21/23 03:00: White Blood Count 7.4, Red Blood Count 3.20L, Hemoglobin 8.3L, Hematocrit 26L, Mean Corpuscular Volume 82, Mean Corpuscular Hemoglobin 26, Mean Corpuscular Hemoglobin Concent 32, Red Cell Distribution Width 16.8H, Platelet Count 309, Mean Platelet Volume 10.0, Lactic Acid Level 0.93 07/21/23 03:02: Glucometer 476*H 07/21/23 05:10: White Blood Count 9.9, Red Blood Count 3.24L, Hemoglobin 8.4L, Hematocrit 27L, Mean Corpuscular Volume 84, Mean Corpuscular Hemoglobin 26, Mean Corpuscular Hemoglobin Concent 31L, Red Cell Distribution Width 16.9H, Platelet Count 332, Mean Platelet Volume 9.8, Immature Granulocyte % (Auto) 1, Neutrophils (%) (Auto) 47, Lymphocytes (%) (Auto) 40, Monocytes (%) (Auto) 11, Eosinophils (%) (Auto) 1, Basophils (%) (Auto) 0, Neutrophils # (Auto) 4.7, Lymphocytes # (Auto) 4.0, Monocytes # (Auto) 1.1H, Eosinophils # (Auto) 0.1, Basophils # (Auto) 0.0, Immature Granulocyte # (Auto) 0.1, Sodium Level 137, Potassium Level 3.4L, Chloride Level 107, Carbon Dioxide Level 11L, Anion Gap 20H, Blood Urea Nitrogen 14, Creatinine 0.80, Estimat Glomerular Filtration Rate 108, BUN/Creatinine Ratio 18, Glucose Level 298H, Calcium Level 7.8L, Corrected Calcium 8.8, Phosphorus Level 2.5, Magnesium Level 1.6, Total Bilirubin 0.2, Aspartate Amino Transf (AST/SGOT) 18, Alanine Aminotransferase (ALT/SGPT) 13, Alkaline Phosphatase 188H, Total Protein 5.3L, Albumin 2.7L, Beta-Hydroxybutyrate (Chem panel) 2.91H 07/21/23 05:17: Glucometer 269H 07/21/23 06:32: Glucometer 157H 07/21/23 07:47: Glucometer 227H VENANCIO ROEGRS MD Jul 21, 2023 08:38
[2023-07-21] MEDS: NIRMATRELVIR/RITONAVIR (PAXLOVID) TABLET PO SCH ×2 (08:51→21:31)
[2023-07-21 09:12] LABS: POTASSIUM 4.2 MMOL/L (3.6-5.0)
[2023-07-21 09:13] LABS: CALCIUM 7.6 MG/DL (8.5-10.1)
[2023-07-21 09:17] LABS: CREATININE SERUM 0.69 MG/DL (0.60-1.30)
--- NOTE | 2023-07-21 09:59 | History & Physical-Hospitalist ---
ANH CANTU 07/21/23 0959: History of Present Illness HPI/Chief Complaint Pt is a 22 y/o female who presented to the ER yesterday with a week long hx of R breast pain, redness, swelling, and a hard lump behind the nipple. Reports drainage from her nipple that is yellow. States that she went to urgent care for it and was given Bactrim 07/13/2023 but that her sxs have continued to worsen despite not missing any doses. Reports that she had both her nipples pierced 1 month ago. She took out her piercings when urgent care recommended that she do so- she has not noticed any difference in sxs since doing that. She denies feeling chills or feverish and states her temp has been around 99.9. She took tylenol without any relief. She reports nausea but no vomiting. Hx of type 1 DM and 3 episodes of DKA in the last 3 weeks that have required hospitalization. Reports that her blood sugars have been high and that she felt she was in DKA in the ER. Last A1c 06/26/2023 was 10.2. She tested positive for COVID in the ER. She reports that she has had COVID multiple times and she felt asymptomatic in the ER. However, today she feels congested. Denies trouble breathing. Source: patient Exam Limitations: no limitations Date Seen 07/21/23 Time Seen by a Provider: 09:54 Attending Physician Carlos Lyn DO PCP Admitting Physician: Nicky Mcneal MD Attending Physician: Nicky Mcneal MD Referring Physician Date of Admission Jul 21, 2023 at 01:04 Home Medications & Allergies Home Medications Reviewed patient Home Medication Reconciliation performed by pharmacy medication reconciliations platform power technician and/or nursing. Patients Allergies have been reviewed. Allergies Allergies Coded Allergies bismuth subsalicylate (Verified Allergy, Unknown, 08/29/22) latex (Unverified Allergy, Unknown, 01/09/23) Past [id number] Hx Patient Social History Marrital Status: single Tobacco Use?: No Smoking Status: Never a Smoker Smokeless Tobacco Frequency: Never a User Use of E-Cig and/or Vaping dev: Yes E-Cig or Vaping type used: Nicotine Use of E-Cig and/or Vaping Tom: Current Everyday User Substance use?: No Alcohol Use?: Yes Alcohol Frequency: Once in a while Pt feels they are or have been: No Immunizations Up To Date Date of Influenza Vaccine: Jul 25, 2022 First/Initial COVID19 Vaccinat: APR 2021 Second COVID19 Vaccination [place]: MAY 2021 Tetanus Booster (TDap): Unknown Hepatitis A: No Hepatitis B: No PED Vaccines UTD: Yes Seasonal Allergies Seasonal Allergies: No Current Status status: Unknown status: Unable to obtain Advance Directives: No Communicates: Verbally Primary Language: Prydeinig Preferred Spoken Language: P[place]in[place] Is interpretation needed?: No Implanted or Applied Medical D: Other Past Medical History Currently Using CPAP: No Currently Using BIPAP: No Palpitations Sexually Transmitted Disease: No HIV/AIDS: No Bladder Infection Diabetes, Insulin dep Loss of Vision: Denies Hearing Impairment: Denies Anxiety, Depression Blood Disorders: No Adverse Reaction/Blood Tranf: No PMHx: Type I DM Depression SurgHx: port placement Denies Family Medical History No Pertinent Family Hx, Other Conditions/Hx SOCIAL HISTORY: -SMOKING DENIES USE; DOES VAPE NICOTINE -ETOH DENIES USE -DRUGS--THC IN PAST, NO RECENT USE DELIVERED 12/07/22--STILLBORN AT 29/30 WEEKS GESTATION. Review of Systems Constitutional: No chills, No diaphoresis, No fever EENTM: No blurred vision, No double vision, No vision loss, No hoarseness Respiratory: No cough, No dyspnea on exertion, No short of breath Cardiovascular: No chest pain, No syncope Gastrointestinal: No abdominal pain, No constipation, No diarrhea; nausea; No vomiting Genitourinary: No decreased output, No discharge, No frequency Musculoskeletal: No joint swelling, No muscle pain Skin: change in color (Erythema, pain, swelling, lump in R breast), rash Psychiatric/Neurological: Anxiety, Depressed Physical Exam Physical Exam Vital Signs Vital Signs - First Documented 07/20/23 22:48 Temp 36.8 Pulse 125 Resp 18 B/P (MAP) 129/78 (95) Pulse Ox 100 O2 Delivery Room Air Capillary Refill : Less Than 3 Seconds Height, Weight, BMI Height: 5'9.00" Weight: 255lbs. 0oz. 115.680778pl; 26.48 BMI Method:Stated General Appearance: No Apparent Distress, WD/WN Eyes: Bilateral Eye Normal Inspection, Bilateral Eye PERRL HEENT: PERRL/EOMI, Normal ENT Inspection Neck: Normal Inspection, Non Tender Respiratory: Chest Non Tender, Lungs Clear, Normal Breath Sounds, No Accessory Muscle Use, No Respiratory Distress Cardiovascular: Regular Rate, Rhythm, No Edema, No Murmur, Normal Peripheral Pulses Gastrointestinal: Normal Bowel Sounds, Non Tender, Soft Extremity: Normal Capillary Refill, Normal Inspection, No Calf Tenderness Neurologic/Psychiatric: Alert, Oriented x3, No Motor/Sensory Deficits, Normal Mood/Affect Skin: Warm/Dry, Erythema (3 cm diameter R breast erythema with associated hard lump behind nipple. Warm to touch) Results Results/Procedures Labs Laboratory Tests 07/20/23 23:10 07/21/23 03:00 07/21/23 05:10 07/21/23 08:44 Patient resulted labs reviewed. Assessment/Plan Admission Diagnosis Admission Status: Inpatient Order (span 2 midnights) Reason for Inpatient Admission: Mastitis, DKA, COVID19 Assessment and Plan R breast mastitis - US today - Continue vancomycin IV 750 mg q8 hrs - Switch from zosyn to augmentin 500 mg BID PO with meals DKA/Diabetes - Stop insulin drip and start bolus insulin + sliding scale - Continue KCl - regular diet - Repeat bmp tmw Depression/anxiety - Continue buproprion 75 mg PO BID COVID19 - Continue antiviral therapy and supportive measures NICKY MCNEAL MD 07/21/23 1250: Assessment/Plan Admission Diagnosis Mastitis and DKA Assessment and Plan Patient admitted to the hospital secondary to mastitis and subsequent DKA. Her blood sugars have improved and her gap is closed so we will titrate her off of the insulin drip. Breast ultrasound has been ordered to evaluate for underlying abscess. Continue antibiotics. Patient did just have a nipple piercing done roughly a month ago which is likely how infection started. She was incidentally found to have COVID and given her comorbidities we will continue Paxlovid. Advance diet. Supervisory-Addendum Brief Verification & Attestation Participated in pt care: history, MDM, physical Personally performed: exam, history, MDM, supervision of care Care discussed with: Medical Student Procedures: n/a Results interpretation: Verified all documentation Verification and Attestation of Medical Student E/M Service A medical student performed and documented this service in my presence. I reviewed and verified all information documented by the medical student and made modifications to such information, when appropriate. I personally performed the physical exam and medical decision making. Nicky Mcneal, Jul 21, 2023,12:49 ANH CANTU Jul 21, 2023 09:59 NICKY MCNEAL MD Jul 21, 2023 12:50
[2023-07-21 10:43] LABS: CLARITY,URINE CLEAR; COLOR,URINE YELLOW; PROTEIN,URINE NEGATIVE (NEGATIVE)
[2023-07-21 10:44] LABS: BACTERIA,URINE TRACE /HPF; BILIRUBIN,URINE NEGATIVE (NEGATIVE); GLUCOSE, URINE (UA) 3+ (NEGATIVE); KETONES,URINE 3+ (NEGATIVE); LEUKOCYTE ESTERASE ,URINE 1+ (NEGATIVE); NITRITE,URINE NEGATIVE (NEGATIVE)
[2023-07-21 10:45] LABS: RBC,URINE 25-50 /HPF; YEAST,URINE FEW /HPF
[2023-07-21] MEDS: VANCOMYCIN 750 MG/NS 250 ML IVPB IV SCH ×4 (11:14→18:01)
--- NOTE | 2023-07-21 11:51 | Diagnostic Imaging Report ---
INDICATION: Mastitis, pain. COMPARISON: None available. TECHNIQUE: Targeted right breast ultrasound was performed on 07/21/2023. FINDINGS: Within the region of pain and hardness within the right breast at approximately 4 o'clock, multiple dilated ducts are present with associated internal echoes. Additional potential debris-filled fluid is also seen within the right breast at 4 o'clock within this location. This is associated with skin thickening and hyperemia. IMPRESSION: Abnormally debris-filled dilated ducts with additional debris-filled fluid within the right breast corresponding to the region of clinical concern centered within 4 o'clock of the right breast. This is probably benign, favored to relate to underlying mastitis with potential phlegmon or small abscess. Recommend antibiotic treatment with followup ultrasound of the right breast 1-2 months after appropriate therapy. BI-RADS CATEGORY 3: Short term interval followup, probably benign FOLLOWUP: Right breast ultrasound is recommended in 1-2 months after appropriate therapy. Dictated by: Dictated on workstation # [id number]
[2023-07-21 12:24] LABS: POTASSIUM 3.9 MMOL/L (3.6-5.0)
[2023-07-21 12:25] LABS: CALCIUM 7.4 MG/DL (8.5-10.1)
[2023-07-21 12:30] LABS: CREATININE SERUM 0.63 MG/DL (0.60-1.30)
[2023-07-21] MEDS ORDERED: inSUlin DETERMIR 1 UNIT/0.01 ML (CHARGE PER UNIT) SQ ONE (13:00)
[2023-07-21] MEDS: inSUlin ASPART 1 UNIT/0.01 ML (PER UNIT) SC SCH ×2 (18:08→21:29)
[2023-07-21 18:30] LABS: POTASSIUM 3.5 MMOL/L (3.6-5.0)
[2023-07-21 18:31] LABS: CALCIUM 8.6 MG/DL (8.5-10.1)
[2023-07-21 18:35] LABS: CREATININE SERUM 1.08 MG/DL (0.60-1.30)
[2023-07-22] MEDS: VANCOMYCIN 750 MG/NS 250 ML IVPB IV SCH ×6 (02:39→18:19)
[2023-07-22] MEDS: VASOPRESSIN INJECTION 20 UNIT in NS (IVPB) 100 ML 100 ML IV SCH ×2 (04:05→12:07)
[2023-07-22 05:01] LABS: BASOPHILS # (AUTO) 0.1 10^3/uL (0.0-0.1); BASOPHILS % (AUTO) 1 % (0-10); EOSINOPHILS # (AUTO) 0.2 10^3/uL (0.0-0.3); EOSINOPHILS % (AUTO) 2 % (0-10); HEMATOCRIT 29 % (35-52); HEMOGLOBIN 9.5 g/dL (11.5-16.0); LYMPHOCYTES # (AUTO) 2.9 10^3/uL (1.0-4.0); LYMPHOCYTES % (AUTO) 32 % (12-44); MEAN CORPUSCULAR HEMOGLOBIN 27 pg (25-34); MEAN CORPUSCULAR HGB CONC 33 g/dL (32-36); MEAN CORPUSCULAR VOLUME 81 fL (80-99); MEAN PLATELET VOLUME 9.8 fL (9.0-12.2); MONOCYTES # (AUTO) 0.8 10^3/uL (0.0-1.0); MONOCYTES % (AUTO) 9 % (0-12); NEUTROPHILS # (AUTO) 5.2 10^3/uL (1.8-7.8); NEUTROPHILS % (AUTO) 56 % (42-75); PLATELET COUNT 366 10^3/uL (130-400); WHITE BLOOD COUNT 9.3 10^3/uL (4.3-11.0)
[2023-07-22 05:10] LABS: ALBUMIN 2.8 GM/DL (3.2-4.5)
[2023-07-22 05:11] LABS: POTASSIUM 3.9 MMOL/L (3.6-5.0)
[2023-07-22 05:12] LABS: CALCIUM 8.2 MG/DL (8.5-10.1)
[2023-07-22 05:15] LABS: BILIRUBIN,TOTAL 0.2 MG/DL (0.1-1.0)
[2023-07-22 05:17] LABS: CREATININE SERUM 0.64 MG/DL (0.60-1.30)
[2023-07-22] MEDS: inSUlin ASPART 1 UNIT/0.01 ML (PER UNIT) SC SCH ×4 (05:18→20:29)
[2023-07-22 05:19] LABS: MAGNESIUM 1.8 MG/DL (1.6-2.4)
[2023-07-22] MEDS: MAGNESIUM 1 GM/100 ML IVPB 100 ML IV SCH ×3 (05:49→06:04)
[2023-07-22] MEDS: POTASSIUM CL 10MEQ/50ML IVPB 50 ML IV SCH (05:49)
[2023-07-22] MEDS: POTASSIUM CHLORIDE 20 MEQ TABLET PO SCH (05:50)
[2023-07-22] MEDS ORDERED: MAGNESIUM 1 GM/100 ML IVPB 200 ML IV ONE (05:58)
[2023-07-22] MEDS: PIPERACILLIN/Tazobactam 4.5 GM in NS (IVPB) 100 ML 100 ML IV SCH ×3 (06:03→22:10)
[2023-07-22] MEDS ORDERED: POTASSIUM CHLORIDE 20 MEQ TABLET PO ONE (08:00)
[2023-07-22] MEDS: NIRMATRELVIR/RITONAVIR (PAXLOVID) TABLET PO SCH ×2 (08:58→20:21)
[2023-07-22] MEDS ORDERED: inSUlin DETERMIR 1 UNIT/0.01 ML (CHARGE PER UNIT) SQ SCH (09:00)
--- NOTE | 2023-07-22 09:42 | Progress Note - Hospitalist ---
ANH CANTU 07/22/23 0942: Subjective HPI/CC On Admission Date Seen by Provider: Jul 22, 2023 Time Seen by Provider: 09:37 Pt is a 22 y/o female who presented to the ER yesterday with a week long hx of R breast pain, redness, swelling, and a hard lump behind the nipple. Reports drainage from her nipple that is yellow. States that she went to urgent care for it and was given Bactrim 07/13/2023 but that her sxs have continued to worsen despite not missing any doses. Reports that she had both her nipples pierced 1 month ago. She took out her piercings when urgent care recommended that she do so- she has not noticed any difference in sxs since doing that. She denies feeling chills or feverish and states her temp has been around 99.9. She took tylenol without any relief. She reports nausea but no vomiting. Hx of type 1 DM and 3 episodes of DKA in the last 3 weeks that have required hospitalization. Reports that her blood sugars have been high and that she felt she was in DKA in the ER. Last A1c 06/26/2023 was 10.2. She tested positive for COVID in the ER. She reports that she has had COVID multiple times and she felt asymptomatic in the ER. However, today she feels congested. Denies trouble breathing. Subjective/Events-last exam Pt states that her R breast continues to be painful and reports no change from the previous day. She thinks that the lump behind her nipple make have decreased in size slightly. Still draining green/yellow fluid. She notes that she does not feel naseous or short of breath. She states that she still feels congested but denies any production of phelgm. She states that she feels tired and wishes to go home soon. Review of Systems General: No Chills, No Night Sweats; Fatigue HEENT: No Head Aches; Sinus Congestion Pulmonary: No Dyspnea, No Cough Cardiovascular: No: Chest Pain, Palpitations Gastrointestinal: No: Nausea, Vomiting, Abdominal Pain, Diarrhea Genitourinary: No Dysuria, No Frequency, No Incontinence Musculoskeletal: other (R breast pain. ); No: arm pain, leg pain Neurological: No: Weakness, Numbness, Change in speech, Confusion Focused Exam Sepsis Stage: Ruled Out Lactate Level 07/20/23 23:10: Lactic Acid Level 2.52*H 07/21/23 03:00: Lactic Acid Level 0.93 Time of Focused Exam: 00:10 Objective Exam Vital Signs Vital Signs Date Time Temp Pulse Resp B/P (MAP) Pulse Ox O2 Delivery O2 Flow Rate FiO2 07/22/23 11:00 86 16 126/83 (97) 98 Room Air 07/22/23 07:21 35.5 Capillary Refill : Less Than 3 Seconds General Appearance: No Apparent Distress, WD/WN HEENT: PERRL/EOMI, TMs Normal Neck: Normal Inspection, Non Tender, Supple Respiratory: Chest Non Tender, Lungs Clear, Normal Breath Sounds, No Accessory Muscle Use, No Respiratory Distress Cardiovascular: Regular Rate, Rhythm, No Murmur, Normal Peripheral Pulses Gastrointestinal: Normal Bowel Sounds, Non Tender, Soft Extremity: Non Tender, No Calf Tenderness, No Pedal Edema Neurologic/Psychiatric: Alert, Oriented x3, No Motor/Sensory Deficits, Depresse d Affect Skin: Warm/Dry, Erythema (Improved erythema in R breast. Still extremely tender to palpation but reduced in size. No increased warmth to touch) Results/Procedures Lab Laboratory Tests 07/21/23 12:04 07/21/23 18:11 07/22/23 04:50 Patient resulted labs reviewed. Assessment/Plan Assessment and Plan Assess & Plan/Chief Complaint R breast mastitis - Continue vancomycin IV 750 mg q8 hrs - Continue augmentin 500 mg BID PO with meals - Repeat cbc DKA/Diabetes - Continue bolus insulin + sliding scale - Episode of hypoglycemia (49) today followed by glucose of 434. Reduce basal insulin dose - Continue KCl - regular diet - Repeat cmp and betahydroxybutyrate to check for DKA Depression/anxiety - Continue buproprion 75 mg PO BID COVID19 - Continue antiviral therapy and supportive measures NICKY MCNEAL MD 07/22/23 1527: Assessment/Plan Assessment and Plan Assess & Plan/Chief Complaint Pt reports doing better today and hoping to go home. She reports her breast pain is still present though. She also complains of being quite tired. BS this morning fasting was 49 and then after breakfast was up to 430. Very labile blood sugars which she reports happens at home as well. Will get BMP to make sure not going back into DKA. If doing well this afternoon/evening will try to transfer out of ICU. I did decrease her basal insulin due to the hypoglycemia. Continue sliding scale. Supervisory-Addendum Brief Verification & Attestation Participated in pt care: history, MDM, physical Personally performed: exam, history, MDM, supervision of care Care discussed with: Medical Student Procedures: n/a Results interpretation: Verified all documentation Verification and Attestation of Medical Student E/M Service A medical student performed and documented this service in my presence. I reviewed and verified all information documented by the medical student and made modifications to such information, when appropriate. I personally performed the physical exam and medical decision making. Nicky Mcneal, Jul 22, 2023,15:22 ANH CANTU Jul 22, 2023 09:42 NICKY MCNEAL MD Jul 22, 2023 15:27
--- NOTE | 2023-07-22 10:26 | Tele-ICU Progress Note ---
Subjective Date Seen by a Provider: Jul 22, 2023 Time Seen by a Provider: 10:26 Subjective/Events-last exam (Tele-ICU Physician , Progress Note ) Service provided via interactive audio and video telecommunications E-CARE system to a patient admitted to ICU bed in [facility]. Patient is seen today due to persistent need of ICU care Available chart/ vitals / labs / Images reviewed Video assessment done using teleICU camera, rest of exam as per RN Discussed with RN Events overnight : Afebrile hemodynamically stable Respiratory - I/O = Drips: Pressors- no Hospital course: (+) Severe Sepsis-(+) for COVID: (07/20) 22 Y/O Female in mild DKA, Right breast swelling, and Dehydration. A/P R breast mastitis ( with recent peircing of nipple ) -wound cx + staph- ? MRSA - vanco and zosyn ( or augmentin ) - US -with potential phlegmon or small abscess. - f/up cx positive for COVID in the ER -asymptomatic -on paxlovid given bact infection a nd DKA DKA with infection - resolved - tx of DM with insulin Lines : port , (Central Line Necessity Reviewed) [place]: OG: Nutrition: Analgesia: Anxiety/ delirium VTE Prophylaxis: scd Stress Ulcer Prophylaxis: ppi Plans in collaboration with bedside consultants and IM MDs. Discussed with RN to reach out if any questions or concerns Case and care daily discussed on multidisciplinary rounds ( RN, PharmD, Small Products Assembler , Respiratory Therapy, workers compensation examiner ) A total of _ 20 minutes of critical care time was devoted to this patient today, required to treat and/or prevent further deterioration of critical care cond ition ( as above ) . I am remotely monitoring this patient from another state. I am unable to do the bedside exam, and history/physical and pertinent information is taken from other notes in the computer and bedside staff. Sepsis Event Evaluation Height, Weight, BMI Height: 5'9.00" Weight: 255lbs. 0oz. 115.663397wq; 27.06 BMI Method:Stated Focused Exam Lactate Level 07/20/23 23:10: Lactic Acid Level 2.52*H 07/21/23 03:00: Lactic Acid Level 0.93 Time of Focused Exam: 00:10 Exam Exam Patient acknowledged, consented, and participated in this virtual visit which was conducted using real time audio/video Vital Signs Date Time Temp Pulse Resp B/P (MAP) Pulse Ox O2 Delivery O2 Flow Rate FiO2 07/22/23 10:00 101 19 73/60 (64) 97 Room Air 07/22/23 09:00 92 8 132/109 (117) 100 Room Air 07/22/23 08:06 99 Room Air 07/22/23 08:00 86 17 110/74 (86) 99 Room Air 07/22/23 07:21 35.5 07/22/23 07:00 84 16 116/79 (91) 99 Room Air 07/22/23 07:00 84 07/22/23 06:00 91 17 120/79 (93) 99 Room Air 07/22/23 05:00 102 25 125/84 (98) 99 Room Air 07/22/23 04:00 109 25 141/92 (108) 100 Room Air 07/22/23 04:00 99 Room Air 07/22/23 03:00 114 11 136/91 (106) 99 Room Air 07/22/23 02:00 105 28 139/91 (107) 99 Room Air 07/22/23 01:00 96 07/22/23 01:00 95 9 134/89 (104) 99 Room Air 07/22/23 00:00 92 11 141/91 (108) 99 Room Air 07/21/23 23:23 99 Room Air 07/21/23 23:00 82 12 136/95 (109) 99 Room Air 07/21/23 22:00 97 19 132/80 (97) 100 Room Air 07/21/23 21:00 98 21 139/106 (117) 97 Room Air 07/21/23 20:00 99 21 135/90 (105) 100 Room Air 07/21/23 20:00 99 Room Air 07/21/23 19:28 35.3 98 20 111/62 (78) 100 Room Air 07/21/23 19:00 94 07/21/23 18:00 101 25 135/109 (118) 100 Room Air 07/21/23 17:00 91 13 126/95 (105) 100 Room Air 07/21/23 16:00 99 Room Air 07/21/23 16:00 94 1 132/93 (106) 100 Room Air 07/21/23 15:00 97 9 128/91 (103) 100 Room Air 07/21/23 14:00 82 18 120/83 (95) 100 Room Air 07/21/23 13:00 81 07/21/23 13:00 79 15 108/70 (83) 99 Room Air 07/21/23 12:08 35.9 07/21/23 12:07 99 Room Air 07/21/23 12:00 91 15 123/118 (120) 99 Room Air 07/21/23 11:00 95 28 123/91 (102) 100 Room Air I & O 07/22/23 06:59 Intake Total 3775 ml Output Total 500 ml Balance 3275 ml Height & Weight Height: 5'9.00" Weight: 255lbs. 0oz. 115.182818lu; 27.06 BMI Method:Stated General Appearance: No Apparent Distress, WD/WN HEENT: PERRL/EOMI, TMs Normal Neck: Normal Inspection, Non Tender, Supple Respiratory: Chest Non Tender, Lungs Clear, Normal Breath Sounds, No Accessory Muscle Use, No Respiratory Distress Cardiovascular: Regular Rate, Rhythm, No Murmur, Normal Peripheral Pulses Capillary Refill: Less Than 3 Seconds Extremity: Non Tender, No Calf Tenderness, No Pedal Edema Neurologic/Psychiatric: Alert, Oriented x3, No Motor/Sensory Deficits, Depressed Affect Skin: Warm/Dry, Erythema (Improved erythema in R breast. Still extremely tender to palpation but reduced in size. No increased warmth to touch) Results Lab Laboratory Tests 07/20/23 23:10 07/21/23 03:00 07/21/23 05:10 07/21/23 08:44 07/21/23 12:04 07/21/23 18:11 07/22/23 04:50 Assessment/Plan Assessment/Plan 1 FRANTZ ENCISO MD Jul 22, 2023 10:26
[2023-07-22] MEDS: inSUlin DETERMIR 1 UNIT/0.01 ML (CHARGE PER UNIT) SQ SCH (10:30)
[2023-07-22] MEDS: NOREPINEPHRINE 8 MG/250 ML 250 ML IV SCH (12:07)
[2023-07-22 12:51] LABS: POTASSIUM 4.6 MMOL/L (3.6-5.0)
[2023-07-22 12:52] LABS: CALCIUM 8.2 MG/DL (8.5-10.1)
[2023-07-22 12:57] LABS: CREATININE SERUM 0.74 MG/DL (0.60-1.30)
[2023-07-22] MEDS: KETOROLAC INJ 30 MG/ML VIAL IVP PRN (22:19)
[2023-07-23] MEDS: VANCOMYCIN 750 MG/NS 250 ML IVPB IV SCH ×4 (03:15→11:08)
[2023-07-23 04:30] LABS: BASOPHILS # (AUTO) 0.1 10^3/uL (0.0-0.1); BASOPHILS % (AUTO) 1 % (0-10); EOSINOPHILS # (AUTO) 0.1 10^3/uL (0.0-0.3); EOSINOPHILS % (AUTO) 1 % (0-10); HEMATOCRIT 29 % (35-52); HEMOGLOBIN 9.5 g/dL (11.5-16.0); LYMPHOCYTES # (AUTO) 2.2 10^3/uL (1.0-4.0); LYMPHOCYTES % (AUTO) 23 % (12-44); MEAN CORPUSCULAR HEMOGLOBIN 26 pg (25-34); MEAN CORPUSCULAR HGB CONC 33 g/dL (32-36); MEAN CORPUSCULAR VOLUME 81 fL (80-99); MONOCYTES # (AUTO) 0.7 10^3/uL (0.0-1.0); MONOCYTES % (AUTO) 7 % (0-12); NEUTROPHILS # (AUTO) 6.5 10^3/uL (1.8-7.8); NEUTROPHILS % (AUTO) 67 % (42-75); PLATELET COUNT 350 10^3/uL (130-400); WHITE BLOOD COUNT 9.7 10^3/uL (4.3-11.0)
[2023-07-23 04:43] LABS: ALBUMIN 2.7 GM/DL (3.2-4.5); POTASSIUM 5.3 MMOL/L (3.6-5.0)
[2023-07-23 04:44] LABS: CALCIUM 8.6 MG/DL (8.5-10.1)
[2023-07-23 04:46] LABS: TOTAL PROTEIN 5.7 GM/DL (6.4-8.2)
[2023-07-23 04:47] LABS: BILIRUBIN,TOTAL 0.3 MG/DL (0.1-1.0)
[2023-07-23 04:49] LABS: CREATININE SERUM 0.85 MG/DL (0.60-1.30); PHOSPHORUS 3.6 MG/DL (2.3-4.7)
[2023-07-23 04:52] LABS: MAGNESIUM 1.7 MG/DL (1.6-2.4)
[2023-07-23] MEDS ORDERED: inSUlin ASPART 1 UNIT/0.01 ML (PER UNIT) SC ONE (06:15)
[2023-07-23] MEDS: POTASSIUM CL 10MEQ/50ML IVPB 50 ML IV SCH ×7 (06:27→21:20)
[2023-07-23] MEDS: inSUlin ASPART 1 UNIT/0.01 ML (PER UNIT) SC SCH ×2 (06:27→11:14)
[2023-07-23] MEDS: MAGNESIUM 1 GM/100 ML IVPB 100 ML IV SCH ×5 (06:27→09:38)
[2023-07-23] MEDS: POTASSIUM CHLORIDE 20 MEQ TABLET PO SCH (06:27)
[2023-07-23] MEDS ORDERED: MAGNESIUM 1 GM/100 ML IVPB 400 ML IV ONE (06:30)
[2023-07-23] MEDS: PIPERACILLIN/Tazobactam 4.5 GM in NS (IVPB) 100 ML 100 ML IV SCH (06:40)
[2023-07-23] MEDS: inSUlin DETERMIR 1 UNIT/0.01 ML (CHARGE PER UNIT) SQ SCH (08:12)
[2023-07-23] MEDS: NIRMATRELVIR/RITONAVIR (PAXLOVID) TABLET PO SCH ×2 (08:14→20:25)
--- NOTE | 2023-07-23 08:56 | Progress Note ---
JESÚS ACUÑA MD, RESIDENT 07/23/23 0856: Subjective HPI/CC On Admission Date Seen by Provider: Jul 23, 2023 Time Seen by Provider: 07:15 Pt is a 22 y/o female who presented to the ER yesterday with a week long hx of R breast pain, redness, swelling, and a hard lump behind the nipple. Reports drainage from her nipple that is yellow. States that she went to urgent care for it and was given Bactrim 07/13/2023 but that her sxs have continued to worsen despite not missing any doses. Reports that she had both her nipples pierced 1 month ago. She took out her piercings when urgent care recommended that she do so- she has not noticed any difference in sxs since doing that. She denies feeling chills or feverish and states her temp has been around 99.9. She took tylenol without any relief. She reports nausea but no vomiting. Hx of type 1 DM and 3 episodes of DKA in the last 3 weeks that have required hospitalization. Reports that her blood sugars have been high and that she felt she was in DKA in the ER. Last A1c 06/26/2023 was 10.2. She tested positive for COVID in the ER. She reports that she has had COVID multiple times and she felt asymptomatic in the ER. However, today she feels congested. Denies trouble breathing. Subjective/Events-last exam Patient is doing well this morning. Is continuing to have some mild right breast tenderness however states it is improved from yesterday. Denying any shortness of breath or significant cough this morning. Has no other concerns today. Review of Systems General: No Fatigue HEENT: No Head Aches Pulmonary: No Dyspnea Cardiovascular: No: Chest Pain, Palpitations, Edema Gastrointestinal: No: Nausea, Vomiting, Diarrhea, Constipation Genitourinary: No Dysuria Breast pain Focused Exam Lactate Level 07/20/23 23:10: Lactic Acid Level 2.52*H 07/21/23 03:00: Lactic Acid Level 0.93 Time of Focused Exam: 00:10 Objective Exam Vital Signs Vital Signs Date Time Temp Pulse Resp B/P (MAP) Pulse Ox O2 Delivery O2 Flow Rate FiO2 07/23/23 10:00 93 15 121/81 (94) 99 Room Air 07/23/23 08:17 35.1 Capillary Refill : Less Than 3 Seconds General Appearance: No Apparent Distress HEENT: Normal ENT Inspection Neck: Normal Inspection, Non Tender Respiratory: Chest Non Tender, Lungs Clear, Normal Breath Sounds, No Accessory Muscle Use, No Respiratory Distress Cardiovascular: Regular Rate, Rhythm, No Edema, No Murmur Gastrointestinal: Normal Bowel Sounds, Non Tender, Soft Genital/Rectal: Other (Right breast around the nipple tense and hard to palpation, tender diffusely, noting a little bit of a lump at 4:00, does not feel warm to touch, no drainage noted) Neurologic/Psychiatric: Alert, Oriented x3 Skin: Normal Color, Warm/Dry Results/Procedures Lab Laboratory Tests 07/22/23 12:30 07/23/23 04:23 Patient resulted labs reviewed. Assessment/Plan Assessment and Plan Assess & Plan/Chief Complaint 22-year-old female presenting with DKA, right-sided mastitis and COVID-19. Diagnosis/Problems Diagnosis/Problems (1) DKA (diabetic ketoacidosis) Onset Date: 05/14/2023 Status: Acute Assessment & Plan: Patient presented initially with DKA. Has since been taken off of the insulin drip and is on subcutaneous insulin as of yesterday. There was some lability in patient's blood sugars and thus detemir was decreased to 4 units yesterday. Sugars appear to be elevated this morning to 500. Plan: We will recheck BMP and beta hydroxybutyrate at 1200 Continue sliding scale insulin A Qualifiers: Qualified Codes: E10.10 - Type 1 diabetes mellitus with ketoacidosis without coma (2) COVID-19 Status: Acute Assessment & Plan: Respiratory status is stable. Continue Paxlovid (3) Acute mastitis of right breast Status: Acute Assessment & Plan: Right breast ultrasound notable for underlying mastitis with possible small abscess at 4:00. Wound culture from breast abscess growing small amount of Staph aureus. CBC is otherwise stable. Plan: Continue IV Vanco and Zosyn (4) Depression Status: Chronic Assessment & Plan: Continue home medications. JOSIE SMYTH DO 07/24/23 0434: Subjective Subjective/Events-last exam Patient still with labile sugars COVID isolation maintained No falls No pain Mastitis improved Review of Systems General: Fatigue Objective Exam General Appearance: No Apparent Distress, WD/WN, Chronically ill Assessment/Plan Assessment and Plan Assess & Plan/Chief Complaint IV abx ICU for drip of insulin Still critical I personally performed the arredondo portions of the visit, discussed case with resident and concur with resident documentation of history, physical exam, assessment and treatment plan unless otherwise noted. EJSÚS ACUÑA MD, RESIDENT Jul 23, 2023 08:56 JOSIE SMYTH DO Jul 24, 2023 04:34
--- NOTE | 2023-07-23 09:51 | Tele-ICU Progress Note ---
Subjective Date Seen by a Provider: Jul 23, 2023 Time Seen by a Provider: 09:50 Subjective/Events-last exam (Tele-ICU Physician , Progress Note ) Service provided via interactive audio and video telecommunications E-CARE system to a patient admitted to ICU bed in [facility]. Patient is seen today due to persistent need of ICU care Available chart/ vitals / labs / Images reviewed Video assessment done using teleICU camera, rest of exam as per RN Discussed with RN Events overnight : Afebrile hemodynamically stable Respiratory - ra I/O =+ Drips: Pressors- no Hospital course: (+) Severe Sepsis-(+) for COVID: (07/20) 22 Y/O Female in mild DKA, Right breast swelling, and Dehydration. A/P R breast mastitis ( with recent peircing of nipple ) -wound cx + staph- ? MRSA - vanco and zosyn ( or augmentin ) - await cx results - US -with potential phlegmon or small abscess. - f/up cx positive for COVID in the ER -asymptomatic -on paxlovid given bact infection a nd DKA DKA with infection - resolved , but GL high today - to adjust insulin dosing as per PCP - tx of DM with insulin Lines : port , (Central Line Necessity Reviewed) Jeffries: OG: Nutrition: Analgesia: Anxiety/ delirium VTE Prophylaxis: scd, ambulate Stress Ulcer Prophylaxis: ppi Plans in collaboration with bedside consultants and IM MDs. Discussed with RN to reach out if any questions or concerns Case and care daily discussed on multidisciplinary rounds ( RN, PharmD, Collar Stitcher , Respiratory Therapy, skid worker ) A total of _ 10 minutes of critical care time was devoted to this patient today, required to treat and/or prevent further deterioration of critical care condition ( as above ) . I am remotely monitoring this patient from another state. I am unable to do the bedside exam, and history/physical and pertinent information is taken from other notes in the computer and bedside staff. Sepsis Event Evaluation Height, Weight, BMI Height: 5'9.00" Weight: 255lbs. 0oz. 115.947414ck; 26.87 BMI Method:Stated Focused Exam Lactate Level 07/20/23 23:10: Lactic Acid Level 2.52*H 07/21/23 03:00: Lactic Acid Level 0.93 Time of Focused Exam: 00:10 Exam Exam Patient acknowledged, consented, and participated in this virtual visit which was conducted using real time audio/video Vital Signs Date Time Temp Pulse Resp B/P (MAP) Pulse Ox O2 Delivery O2 Flow Rate FiO2 07/23/23 08:17 35.1 07/23/23 07:12 114 07/23/23 07:00 102 11 130/80 (97) 98 Room Air 07/23/23 06:00 90 30 123/83 (91) 98 Room Air 07/23/23 05:00 109 20 104/51 (68) 97 Room Air 07/23/23 04:00 99 Room Air 07/23/23 04:00 103 25 120/74 (85) 98 Room Air 07/23/23 03:00 105 18 140/93 (107) 100 Room Air 07/23/23 02:00 135 22 115/87 (90) Room Air 07/23/23 01:00 108 07/23/23 01:00 105 29 128/77 (90) 98 Room Air 07/23/23 00:04 99 Room Air 07/23/23 00:00 94 19 107/85 (90) 99 Room Air 07/22/23 23:00 90 20 129/78 (95) 100 Room Air 07/22/23 22:00 108 21 133/87 (96) 100 Room Air 07/22/23 21:00 104 10 130/72 (84) 99 Room Air 07/22/23 20:00 99 Room Air 07/22/23 20:00 27 127/82 (98) 100 Room Air 07/22/23 19:45 36.9 07/22/23 19:00 107 19 154/57 (91) 100 Room Air 07/22/23 19:00 118 07/22/23 18:00 125 24 141/101 (114) 100 Room Air 07/22/23 17:00 105 20 131/88 (102) 99 Room Air 07/22/23 16:00 107 25 137/87 (104) 100 Room Air 07/22/23 16:00 99 Room Air 07/22/23 15:55 36.7 07/22/23 15:00 112 15 130/110 (117) 100 Room Air 07/22/23 14:00 103 15 158/90 (112) 100 Room Air 07/22/23 13:00 105 12 136/79 (98) 99 Room Air 07/22/23 13:00 94 07/22/23 12:46 36.3 07/22/23 12:00 90 23 102/65 (77) 99 Room Air 07/22/23 11:28 99 Room Air 07/22/23 11:00 86 16 126/83 (97) 98 Room Air 07/22/23 10:00 101 19 73/60 (64) 97 Room Air I & O 07/23/23 06:59 Intake Total 4515 ml Output Total 3525 ml Balance 990 ml Height & Weight Height: 5'9.00" Weight: 255lbs. 0oz. 115.530497ak; 26.87 BMI Method:Stated General Appearance: No Apparent Distress HEENT: Normal ENT Inspection Neck: Normal Inspection, Non Tender Respiratory: Chest Non Tender, Lungs Clear, Normal Breath Sounds, No Accessory Muscle Use, No Respiratory Distress Cardiovascular: Regular Rate, Rhythm, No Edema, No Murmur Capillary Refill: Less Than 3 Seconds Extremity: Non Tender, No Calf Tenderness, No Pedal Edema Neurologic/Psychiatric: Alert, Oriented x3 Skin: Normal Color, Warm/Dry Results Lab Laboratory Tests 07/21/23 12:04 07/21/23 18:11 07/22/23 04:50 07/22/23 12:30 07/23/23 04:23 Assessment/Plan Assessment/Plan 1 FRANTZ ENCISO MD Jul 23, 2023 09:51
[2023-07-23 12:34] LABS: POTASSIUM 3.8 MMOL/L (3.6-5.0)
[2023-07-23 12:35] LABS: CALCIUM 8.2 MG/DL (8.5-10.1)
[2023-07-23 12:40] LABS: CREATININE SERUM 0.84 MG/DL (0.60-1.30)
[2023-07-23] MEDS ORDERED: POTASSIUM CL 10MEQ/50ML IVPB 50 ML IV SCH (13:15)
[2023-07-23] MEDS ORDERED: NS IV 1000 ML 1,000 ML IV SCH (13:15)
[2023-07-23] MEDS ORDERED: D5 1/2 NS 1,000 ML IV 1,000 ML IV ONE (13:45)
[2023-07-23] MEDS: D5 1/2 NS 1,000 ML IV 1,000 ML IV SCH ×3 (13:49→23:13)
[2023-07-23] MEDS: 1/2 NS IV SOLUTION 1000 ML 1,000 ML IV SCH ×3 (14:05→21:21)
[2023-07-23 16:15] LABS: CALCIUM 8.3 MG/DL (8.5-10.1)
[2023-07-23 16:19] LABS: CREATININE SERUM 0.78 MG/DL (0.60-1.30)
[2023-07-23] MEDS: AMOXICILLIN/Clavulanate 875 MG TABLET PO SCH (17:00)
[2023-07-23 18:24] LABS: POTASSIUM 4.5 MMOL/L (3.6-5.0)
[2023-07-23 18:25] LABS: CALCIUM 8.5 MG/DL (8.5-10.1)
[2023-07-23 18:29] LABS: CREATININE SERUM 0.77 MG/DL (0.60-1.30)
[2023-07-23 23:14] LABS: POTASSIUM 4.5 MMOL/L (3.6-5.0)
[2023-07-23 23:15] LABS: CALCIUM 8.4 MG/DL (8.5-10.1)
[2023-07-23 23:19] LABS: CREATININE SERUM 0.78 MG/DL (0.60-1.30)
[2023-07-24] MEDS: POTASSIUM CL 10MEQ/50ML IVPB 50 ML IV SCH ×3 (01:21→06:31)
[2023-07-24] MEDS: 1/2 NS IV SOLUTION 1000 ML 1,000 ML IV SCH ×3 (01:21→09:15)
[2023-07-24 02:42] LABS: POTASSIUM 4.4 MMOL/L (3.6-5.0)
[2023-07-24 02:43] LABS: CALCIUM 8.3 MG/DL (8.5-10.1)
[2023-07-24 02:48] LABS: CREATININE SERUM 0.67 MG/DL (0.60-1.30)
[2023-07-24] MEDS: D5 1/2 NS 1,000 ML IV 1,000 ML IV SCH ×2 (03:20→08:06)
[2023-07-24] MEDS: MAGNESIUM 1 GM/100 ML IVPB 100 ML IV SCH (05:36)
[2023-07-24] MEDS: POTASSIUM CHLORIDE 20 MEQ TABLET PO SCH (05:36)
[2023-07-24 06:40] LABS: BASOPHILS % (AUTO) 0 % (0-10); EOSINOPHILS # (AUTO) 0.2 10^3/uL (0.0-0.3); EOSINOPHILS % (AUTO) 2 % (0-10); HEMATOCRIT 28 % (35-52); LYMPHOCYTES # (AUTO) 2.6 10^3/uL (1.0-4.0); LYMPHOCYTES % (AUTO) 23 % (12-44); MEAN CORPUSCULAR HEMOGLOBIN 26 pg (25-34); MEAN CORPUSCULAR HGB CONC 32 g/dL (32-36); MEAN CORPUSCULAR VOLUME 82 fL (80-99); MEAN PLATELET VOLUME 9.7 fL (9.0-12.2); MONOCYTES # (AUTO) 0.9 10^3/uL (0.0-1.0); MONOCYTES % (AUTO) 8 % (0-12); NEUTROPHILS # (AUTO) 7.9 10^3/uL (1.8-7.8); NEUTROPHILS % (AUTO) 67 % (42-75); PLATELET COUNT 375 10^3/uL (130-400); WHITE BLOOD COUNT 11.7 10^3/uL (4.3-11.0)
[2023-07-24 06:57] LABS: ALBUMIN 2.7 GM/DL (3.2-4.5); POTASSIUM 4.4 MMOL/L (3.6-5.0)
[2023-07-24 06:58] LABS: CALCIUM 8.3 MG/DL (8.5-10.1)
[2023-07-24 07:00] LABS: TOTAL PROTEIN 5.5 GM/DL (6.4-8.2)
[2023-07-24 07:01] LABS: BILIRUBIN,TOTAL 0.1 MG/DL (0.1-1.0)
[2023-07-24 07:03] LABS: CREATININE SERUM 0.63 MG/DL (0.60-1.30); PHOSPHORUS 4.8 MG/DL (2.3-4.7)
[2023-07-24 07:06] LABS: MAGNESIUM 1.7 MG/DL (1.6-2.4)
[2023-07-24] MEDS: AMOXICILLIN/Clavulanate 875 MG TABLET PO SCH ×2 (08:12→17:27)
[2023-07-24] MEDS: NIRMATRELVIR/RITONAVIR (PAXLOVID) TABLET PO SCH ×2 (08:13→20:41)
[2023-07-24] MEDS ORDERED: inSUlin DETERMIR 1 UNIT/0.01 ML (CHARGE PER UNIT) SQ ONE (08:30)
--- NOTE | 2023-07-24 09:44 | Progress Note ---
JESÚS ACUÑA MD, RESIDENT 07/24/23 0944: Subjective HPI/CC On Admission Date Seen by Provider: Jul 24, 2023 Time Seen by Provider: 07:15 Pt is a 22 y/o female who presented to the ER yesterday with a week long hx of R breast pain, redness, swelling, and a hard lump behind the nipple. Reports drainage from her nipple that is yellow. States that she went to urgent care for it and was given Bactrim 07/13/2023 but that her sxs have continued to worsen despite not missing any doses. Reports that she had both her nipples pierced 1 month ago. She took out her piercings when urgent care recommended that she do so- she has not noticed any difference in sxs since doing that. She denies feeling chills or feverish and states her temp has been around 99.9. She took tylenol without any relief. She reports nausea but no vomiting. Hx of type 1 DM and 3 episodes of DKA in the last 3 weeks that have required hospitalization. Reports that her blood sugars have been high and that she felt she was in DKA in the ER. Last A1c 06/26/2023 was 10.2. She tested positive for COVID in the ER. She reports that she has had COVID multiple times and she felt asymptomatic in the ER. However, today she feels congested. Denies trouble breathing. Subjective/Events-last exam Patient is doing well this morning. She is continuing to have some right-sided breast tenderness however states it is continuing to improve each day. She is denying any nausea, vomiting and has been tolerating oral intake. She otherwise has no concerns this morning. Review of Systems General: No Chills, No Fatigue Pulmonary: No Dyspnea, No Cough Cardiovascular: No: Chest Pain, Palpitations, Edema Gastrointestinal: No: Nausea, Vomiting, Diarrhea, Constipation Genitourinary: No Dysuria Breast pain Focused Exam Time of Focused Exam: 00:10 Objective Exam Vital Signs Vital Signs Date Time Temp Pulse Resp B/P (MAP) Pulse Ox O2 Delivery O2 Flow Rate FiO2 07/24/23 09:00 100 9 122/95 (104) 100 Room Air 07/24/23 08:16 35.9 Capillary Refill : Less Than 3 Seconds General Appearance: No Apparent Distress HEENT: Normal ENT Inspection Neck: Non Tender, Supple Respiratory: Chest Non Tender, Lungs Clear, Normal Breath Sounds, No Accessory Muscle Use, No Respiratory Distress Cardiovascular: Regular Rate, Rhythm, No Edema, No Murmur Gastrointestinal: Normal Bowel Sounds, Non Tender, Soft Genital/Rectal: Other (Right breast continues to be hard and tender to palpation however area of hardness is decreasing compared to yesterday, no fluctuance noted, not warm to touch.) Extremity: No Pedal Edema Neurologic/Psychiatric: Alert, Oriented x3 Skin: Normal Color, Warm/Dry Lymphatic: No Adenopathy Results/Procedures Lab Laboratory Tests 07/23/23 12:10 07/23/23 16:00 07/23/23 18:00 07/23/23 22:30 07/24/23 02:23 07/24/23 06:30 Patient resulted labs reviewed. Assessment/Plan Assessment and Plan Assess & Plan/Chief Complaint 22-year-old female presenting with DKA, right-sided mastitis and COVID-19. Diagnosis/Problems Diagnosis/Problems (1) DKA (diabetic ketoacidosis) Onset Date: 05/14/2023 Status: Acute Assessment & Plan: Patient presented initially with DKA. We restarted patient's insulin drip yesterday due to the continued elevated beta hydroxybutyrate. This morning's labs noted that patient is no longer in DKA with normal CO2, normal anion gap and normal beta hydroxybutyrate. Plan: We will give patient a dose of Levemir 10 units this morning Sliding scale insulin B We will start Levemir 15 units twice daily tonight Qualifiers: Qualified Codes: E10.10 - Type 1 diabetes mellitus with ketoacidosis without coma (2) COVID-19 Status: Acute Assessment & Plan: Respiratory status is stable. Continue Paxlovid (3) Acute mastitis of right breast Status: Acute Assessment & Plan: Right breast ultrasound notable for underlying mastitis with possible small abscess at 4:00. Wound culture from breast abscess growing small amount of Staph aureus. CBC is otherwise stable. Mastitis is continuing to improve based on physical exam. To Augmentin yesterday given that IV Zosyn cannot be given with the insulin drip. Plan: Continue Augmentin (4) Depression Status: Chronic Assessment & Plan: Continue home medications. JOSIE SMYTH DO 07/24/231934: Subjective Subjective/Events-last exam Much improved Sugars are improved Move to 4th floor PO abx Objective Exam General Appearance: No Apparent Distress, WD/WN, Chronically ill Assessment/Plan Assessment and Plan Assess & Plan/Chief Complaint Move to 4th floor PO abx DC tomorrow JESÚS ACUÑA MD, RESIDENT Jul 24, 2023 09:44 JOSIE SMYTH DO Jul 24, 2023 19:35
--- NOTE | 2023-07-24 10:30 | Tele-ICU Progress Note ---
Subjective Date Seen by a Provider: Jul 24, 2023 Time Seen by a Provider: 10:29 Subjective/Events-last exam (Tele-ICU Physician , Progress Note ) Service provided via interactive audio and video telecommunications E-CARE system to a patient admitted to ICU bed in [facility]. Patient is seen today due to persistent need of ICU care Available chart/ vitals / labs / Images reviewed Video assessment done using teleICU camera, rest of exam as per RN She is a 22-year-old female with past medical history of type 1 diabetes mellitus with several admissions of DKA presented with a low-grade fever and right breast swelling and redness following a piercing of the right breast nipple and found to have a diabetic ketoacidosis as well as right mastitis. She is a started on hydration, insulin drip and antibiotics. Today her anion gap came down to 8 and has no fever. No nausea or vomiting. Earlier today her glucose is 127. Impression 1. Diabetic ketoacidosis improving 2. Right mastitis following piercing clinically improving 3. Acute kidney injury improving. Recommendations 1. Agree with the discontinuation of the insulin drip and starting on a Levemir and Accu-Cheks with sliding scale coverage 2. Continue oral antibiotic 3. If she continues to do well until evening she may be transferred out of the intensive care unit or discharged home if okay with attending physician. Coordination of care with the primary care physician and bedside consultants. I have reviewed the case with [employer] ACQUISITIONS MANAGER. I am remotely monitoring this patient from Tele icu station in [place]. I am unable to do the bedside exam, and history/physical and pertinent information is taken from other notes in the computer and bedside staff. Certain portions of this document may have been dictated utilizing voice recognition technology such as [employer]. Inherent to this technology, typographical and grammatical errors may exist. As much as I am diligent to identify and correct to these mistakes, some errors may remain in the document. Critical care time devoted to this patient today is approximately is--10 minutes. Sepsis Event Evaluation Height, Weight, BMI Height: 5'9.00" Weight: 255lbs. 0oz. 115.275438qd; 27.10 BMI Method:Stated Focused Exam Time of Focused Exam: 00:10 Exam Exam Patient acknowledged, consented, and participated in this virtual visit which was conducted using real time audio/video Vital Signs Date Time Temp Pulse Resp B/P (MAP) Pulse Ox O2 Delivery O2 Flow Rate FiO2 07/24/23 09:00 100 9 122/95 (104) 100 Room Air 07/24/23 08:16 35.9 07/24/23 08:00 94 28 125/83 (97) 98 Room Air 07/24/23 08:00 98 Room Air 07/24/23 07:00 96 07/24/23 07:00 96 19 124/77 (93) 97 Room Air 07/24/23 06:00 100 19 123/82 (96) 98 Room Air 07/24/23 05:00 97 19 133/87 (96) 97 Room Air 07/24/23 04:00 101 21 139/110 (120) 98 Room Air 07/24/23 04:00 99 Room Air 07/24/23 03:00 105 21 129/87 (97) 99 Room Air 07/24/23 02:00 137 22 129/83 (95) 100 Room Air 07/24/23 01:00 111 16 135/92 (104) 100 Room Air 07/24/23 01:00 111 07/24/23 00:00 113 31 132/83 (96) 100 Room Air 07/24/23 00:00 36.2 07/23/23 23:59 100 Room Air 07/23/23 23:00 112 26 145/97 (115) 100 Room Air 07/23/23 22:00 106 15 143/98 (109) 100 Room Air 07/23/23 21:00 102 27 136/86 (101) 100 Room Air 07/23/23 20:15 36.1 07/23/23 20:15 99 Room Air 07/23/23 20:00 109 20 130/78 (95) 100 Room Air 07/23/23 19:00 106 14 126/77 (88) 99 Room Air 07/23/23 19:00 106 07/23/23 18:00 102 11 135/95 (108) 98 Room Air 07/23/23 17:00 95 19 108/91 (97) 99 Room Air 07/23/23 16:28 98 Room Air 07/23/23 16:03 95 19 142/87 (105) 97 Room Air 07/23/23 15:56 36.1 07/23/23 15:00 101 16 136/86 (103) 100 Room Air 07/23/23 14:00 91 21 128/111 (117) 99 Room Air 07/23/23 13:00 105 12 132/88 (103) 100 Room Air 07/23/23 12:33 98 Room Air 07/23/23 12:06 85 07/23/23 12:00 84 14 112/70 (84) 97 Room Air 07/23/23 11:10 35.7 07/23/23 11:07 99 28 94/37 (56) 96 Room Air I & O 07/24/23 06:59 Intake Total 5870 ml Output Total 5200 ml Balance 670 ml Height & Weight Height: 5'9.00" Weight: 255lbs. 0oz. 115.927635ux; 27.10 BMI Method:Stated General Appearance: No Apparent Distress HEENT: Normal ENT Inspection Neck: Non Tender, Supple Respiratory: Chest Non Tender, Lungs Clear, Normal Breath Sounds, No Accessory Muscle Use, No Respiratory Distress Cardiovascular: Regular Rate, Rhythm, No Edema, No Murmur Capillary Refill: Less Than 3 Seconds Extremity: No Pedal Edema Neurologic/Psychiatric: Alert, Oriented x3 Skin: Normal Color, Warm/Dry Lymphatic: No Adenopathy Results Lab Laboratory Tests 07/22/23 12:30 07/23/23 04:23 07/23/23 12:10 07/23/23 16:00 07/23/23 18:00 07/23/23 22:30 07/24/23 02:23 07/24/23 06:30 Assessment/Plan Assessment/Plan as above Critical Care: Critically Ill Patient Time spent with patient (mins): 10 ERNIE SAHA MD Jul 24, 2023 10:30
[2023-07-24] MEDS: inSUlin ASPART 1 UNIT/0.01 ML (PER UNIT) SC SCH ×3 (11:06→20:41)
[2023-07-24] MEDS ORDERED: SULF-221 PO (15:38)
[2023-07-24 16:17] VITALS: BP 117/78
[2023-07-24 20:36] VITALS: BP 122/73
[2023-07-24] MEDS: inSUlin DETERMIR 1 UNIT/0.01 ML (CHARGE PER UNIT) SQ SCH (20:41)
[2023-07-25 00:41] VITALS: BP 126/76
[2023-07-25 03:34] VITALS: BP 112/70
[2023-07-25 03:45] LABS: BASOPHILS # (AUTO) 0.1 10^3/uL (0.0-0.1); BASOPHILS % (AUTO) 0 % (0-10); EOSINOPHILS # (AUTO) 0.1 10^3/uL (0.0-0.3); EOSINOPHILS % (AUTO) 1 % (0-10); HEMATOCRIT 31 % (35-52); HEMOGLOBIN 9.9 g/dL (11.5-16.0); LYMPHOCYTES % (AUTO) 17 % (12-44); MEAN CORPUSCULAR HEMOGLOBIN 26 pg (25-34); MEAN CORPUSCULAR HGB CONC 32 g/dL (32-36); MEAN CORPUSCULAR VOLUME 82 fL (80-99); MEAN PLATELET VOLUME 9.9 fL (9.0-12.2); MONOCYTES # (AUTO) 0.9 10^3/uL (0.0-1.0); MONOCYTES % (AUTO) 7 % (0-12); NEUTROPHILS # (AUTO) 8.8 10^3/uL (1.8-7.8); NEUTROPHILS % (AUTO) 74 % (42-75); PLATELET COUNT 456 10^3/uL (130-400)
[2023-07-25 04:00] LABS: ALBUMIN 3.1 GM/DL (3.2-4.5); POTASSIUM 3.8 MMOL/L (3.6-5.0)
[2023-07-25 04:01] LABS: CALCIUM 8.8 MG/DL (8.5-10.1)
[2023-07-25 04:02] LABS: TOTAL PROTEIN 6.6 GM/DL (6.4-8.2)
[2023-07-25 04:04] LABS: BILIRUBIN,TOTAL 0.1 MG/DL (0.1-1.0)
[2023-07-25 04:06] LABS: CREATININE SERUM 0.67 MG/DL (0.60-1.30); PHOSPHORUS 5.7 MG/DL (2.3-4.7)
[2023-07-25 04:09] LABS: MAGNESIUM 1.7 MG/DL (1.6-2.4)
[2023-07-25] MEDS: inSUlin ASPART 1 UNIT/0.01 ML (PER UNIT) SC SCH ×2 (04:22→11:31)
[2023-07-25] MEDS: MAGNESIUM 1 GM/100 ML IVPB 100 ML IV SCH ×5 (04:22→08:00)
[2023-07-25] MEDS: POTASSIUM CHLORIDE 20 MEQ TABLET PO SCH (04:22)
[2023-07-25] MEDS: POTASSIUM CL 10MEQ/50ML IVPB 50 ML IV SCH (04:22)
[2023-07-25] MEDS ORDERED: POTASSIUM CHLORIDE 20 MEQ TABLET PO ONE (06:00)
[2023-07-25 07:21] VITALS: BP 98/61
[2023-07-25] MEDS: NIRMATRELVIR/RITONAVIR (PAXLOVID) TABLET PO SCH (08:32)
[2023-07-25] MEDS: AMOXICILLIN/Clavulanate 875 MG TABLET PO SCH (08:32)
[2023-07-25] MEDS: inSUlin DETERMIR 1 UNIT/0.01 ML (CHARGE PER UNIT) SQ SCH (08:32)
--- NOTE | 2023-07-25 09:33 | Discharge Summary ---
JESÚS ACUÑA MD, RESIDENT 07/25/23 0932: Discharge Summary Hospital Course Problems/Dx: (1) DKA (diabetic ketoacidosis) Status: Resolved Assessment & Plan: Patient presented initially with DKA. We restarted patient's insulin drip yesterday due to the continued elevated beta hyd roxybutyrate. This morning's labs noted that patient is no longer in DKA with normal CO2, normal anion gap and normal beta hydroxybutyrate. Sugars continue to be labile however we will continue to assist patient with titrating at home. Plan: Sliding scale insulin B Continue Levemir 15 units twice daily Qualifiers: Qualified Codes: E10.10 - Type 1 diabetes mellitus with ketoacidosis without coma (2) COVID-19 Status: Acute Assessment & Plan: Respiratory status is stable. Continue Paxlovid (3) Acute mastitis of right breast Status: Acute Assessment & Plan: Right breast ultrasound notable for underlying mastitis with possible small abscess at 4:00. Wound culture from breast abscess growing small amount of Staph aureus. CBC is otherwise stable. Mastitis is continuing to improve based on physical exam. To Augmentin yesterday given that IV Zosyn cannot be given with the insulin drip. Plan: Continue Augmentin (4) Depression Status: Chronic Assessment & Plan: Continue home medications. Qualifiers: Qualified Codes: F33.9 - Major depressive disorder, recurrent, unspecified Hospital Course Date of Admission: Jul 21, 2023 at 01:04 Admission Diagnosis : Family Physician/Provider: Colt Lambert DO Date of Discharge: 07/25/23 Discharge Diagnosis: DKA, acute mastitis, COVID Hospital Course: Patient is a 22-year-old female with a past medical history of type 1 diabetes who presented to the ED with a weeklong history of right breast pain and swelling. She had gone to urgent care on 07/13/2023 after she was noting yellow drainage and was given a course of Bactrim with no improvement in her symptoms. In the ED, lab work was done as patient is quite familiar to our service and she was noted to be in DKA. Patient also tested positive for COVID in the ED. She was ultimately admitted to the ICU due to requiring an insulin drip. We treated her with vancomycin and Zosyn initially. Wound culture was run on nipple discharge which was noted to be growing Staph aureus. DKA eventually resolved and patient was tolerating oral intake. White blood cell count continue to improve and breast mastitis findings continue to improve as well. Patient was eventually switched to subcutaneous insulin with good management of her sugars. We continued treatment of her mastitis with Augmentin as this the Staph aureus was only resistant to penicillin G and erythromycin. She will be discharged home with prescriptions for Augmentin, Lantus and Humalog. Recommend close follow-up with PCP to limit admissions for DKA. From a COVID standpoint, patient was hemodynamically stable and respiratory status was also stable. Labs and Pending Lab Test: Laboratory Tests 07/24/23 10:08: Glucometer 273H 07/24/23 11:00: Glucometer 196H 07/24/23 12:09: Glucometer 126H 07/24/23 20:32: Glucometer 436*H 07/25/23 00:35: Glucometer 30*L 07/25/23 01:43: Glucometer 110 07/25/23 03:30: White Blood Count 12.0H, Red Blood Count 3.77L, Hemoglobin 9.9L, Hematocrit 31L, Mean Corpuscular Volume 82, Mean Corpuscular Hemoglobin 26, Mean Corpuscular Hemoglobin Concent 32, Red Cell Distribution Width 16.7H, Platelet Count 456H, Mean Platelet Volume 9.9, Immature Granulocyte % (Auto) 1, Neutrophils (%) (Auto) 74, Lymphocytes (%) (Auto) 17, Monocytes (%) (Auto) 7, Eosinophils (%) (Auto) 1, Basophils (%) (Auto) 0, Neutrophils # (Auto) 8.8H, Lymphocytes # (Auto) 2.0, Monocytes # (Auto) 0.9, Eosinophils # (Auto) 0.1, Basophils # (Auto) 0.1, Immature Granulocyte # (Auto) 0.1, Sodium Level 140, Potassium Level 3.8, Chloride Level 102, Carbon Dioxide Level 26, Anion Gap 12, Blood Urea Nitrogen 13, Creatinine 0.67, Estimat Glomerular Filtration Rate 128, BUN/Creatinine Ratio 19, Glucose Level 63L, Calcium Level 8.8, Corrected Calcium 9.5, Phosphorus Level 5.7H, Magnesium Level 1.7, Total Bilirubin 0.1, Aspartate Amino Transf (AST/SGOT) 37H, Alanine Aminotransferase (ALT/SGPT) 19, Alkaline Phosphatase 239H, Total Protein 6.6, Albumin 3.1L 07/25/23 03:31: Glucometer 62L Microbiology 07/21/23 Urine Culture - Final, Complete Growth Consistent See Comments 07/21/23 MRSA Screen - Final, Complete MRSA not isolated 07/21/23 Gram Stain - Final, Complete 07/21/23 Wound Culture - Final, Complete Staphylococcus aureus 07/20/23 Blood Culture - Preliminary, Resulted Home Meds Active Reported Bactrim Ds Tablet (Sulfamethoxazole/Trimethoprim) 800 Mg-160 Mg Tablet 1 Ea PO BID FILLED 07-13-2023 #20/10 DAY SUPPLY Lantus Solostar (Insulin Glargine,Hum.rec.anlog) 100 Unit/Ml (3 Ml) Insuln.pen 6-8 Unit SQ BID Insulin Lispro Kwikpen U-100 (Insulin Lispro) 100 Unit/Ml Insuln.pen Units SC AC Tylenol Extra Strength (Acetaminophen) 500 Mg Tablet 1,000 Mg PO Q8H PRN Bupropion HCl 75 Mg Tablet 75 Mg PO BID LAST FILLED 02-22-2023 #180/90 DAY SUPPLY Assessment/Pt Instructions Please see electronic discharge instructions given to patient. Discharge Instructions Discharge Diet: No Restrictions Activity as Tolerated: Yes Discharge Physical Examination Vital Signs Vital Signs Date Time Temp Pulse Resp B/P (MAP) Pulse Ox O2 Delivery O2 Flow Rate FiO2 07/25/23 08:00 98 Room Air 07/25/23 07:21 36.6 86 15 98/61 (73) General Appearance: No Apparent Distress HEENT: Normal ENT Inspection Respiratory: Chest Non Tender, Lungs Clear, Normal Breath Sounds, No Accessory Muscle Use, No Respiratory Distress, Other (Right breast continues to be hard to palpation mainly under the nipple and from 3:00 to 7 o'clock position. No drai nage noted, mildly tender to palpation, not warm to touch and does not appear erythematous.) Cardiovascular: Regular Rate, Rhythm, No Edema, No Murmur Gastrointestinal: Normal Bowel Sounds, Non Tender, Soft Skin: Normal Color, Warm/Dry Neurologic/Psychiatric: Alert, Oriented x3 Allergies: Coded Allergies: bismuth subsalicylate (Verified Allergy, Unknown, 08/29/22) latex (Unverified Allergy, Unknown, 01/09/23) Copy Copies To 1: COLT LAMBERT DO Discharge Summary Date of Admission Jul 21, 2023 at 01:04 Date of Discharge Admission Diagnosis Mastitis and DKA Discharge Diagnosis 22-year-old female presenting with DKA, right-sided mastitis and COVID-19. (1) DKA (diabetic ketoacidosis) Onset Date: 05/14/2023 Status: Resolved Assessment & Plan: Patient presented initially with DKA. We restarted patient's insulin drip yesterday due to the continued elevated beta hydroxybutyrate. This morning's labs noted that patient is no longer in DKA with normal CO2, normal anion gap and normal beta hydroxybutyrate. Plan: We will give patient a dose of Levemir 10 units this morning Sliding scale insulin B We will start Levemir 15 units twice daily tonight Qualifiers: Qualified Codes: E10.10 - Type 1 diabetes mellitus with ketoacidosis without coma (2) COVID-19 Status: Acute Assessment & Plan: Respiratory status is stable. Continue Paxlovid (3) Acute mastitis of right breast Status: Acute Assessment & Plan: Right breast ultrasound notable for underlying mastitis with possible small abscess at 4:00. Wound culture from breast abscess growing small amount of Staph aureus. CBC is otherwise stable. Mastitis is continuing to improve based on physical exam. To Augmentin yesterday given that IV Zosyn cannot be given with the insulin drip. Plan: Continue Augmentin (4) Depression Status: Chronic Assessment & Plan: Continue home medications. Qualifiers: Qualified Codes: F33.9 - Major depressive disorder, recurrent, unspecified JOSIE SMYTH DO 07/25/23 1933: Discharge Summary Hospital Course Was the Problem List Reviewed?: Yes Assessment/Pt Instructions I personally performed the arredondo portions of the visit, discussed case with resident and concur with resident documentation of history, physical exam, assessment and treatment plan unless otherwise noted. Discharge Planning: <30 minutes discharge planning Discharge Instructions Discharge Diet: ADA Diet Discharge Physical Examination General Appearance: No Apparent Distress, WD/WN Allergies: Coded Allergies: bismuth subsalicylate (Verified Allergy, Unknown, 08/29/22) latex (Unverified Allergy, Unknown, 01/09/23) Copy Copies To 1: COLT LAMBERT ISHA MD, RESIDENT Jul 25, 2023 09:32 JOSIE SMYTH DO Jul 25, 2023 19:33
[2023-07-25] MEDS ORDERED: INSU100I64 SC (09:38)
[2023-07-25] MEDS ORDERED: INSU100I10 SQ ×2 (09:38→11:53)
[2023-07-25] MEDS ORDERED: AMOX1TAB12 PO (09:38)
[2023-07-25 11:34] VITALS: BP 101/63
--- NOTE | 2023-07-27 07:36 | Physician Query Clarification ---
PQ-Further Specificity Admission/Discharge Admission Date: Jul 21, 2023 at 01:04 Discharge Date: Jul 25, 2023 at 13:50 Dr. Diamond, The medical record reflects the following clinical scenario: History/Risk Factors: rt breast mastitis, Covid Clinical Findings: lactic acid 2.52, T 36.2, P 125, R 21 Treatment: IV Piperacillin, IV Vancomycin Question: Can you further specify whether or not patient had sepsis or severe sepsis per the clinical indicators above? ER documents sepsis and Dr. Butterfield's consult/PN state severe sepsis. DS doesn't mention sepsis or severe sepsis Please document a response in the Progress Notes or Discharge Summary. 1. Severe sepsis 2. Sepsis but not severe sepsis 3. Sepsis ruled out. No sepsis or severe sepsis 4. Other, with explanation of the clinical findings. 5. Clinically undetermined, no explanation for the clinical findings. PHYSICIAN RESPONSE Can you specify per above: Other, explanation/clinical finding In responding to this query, please exercise your independent professional judgment. The purpose of this communication is to more accurately reflect the complexity of your patients condition. The fact that a question is asked does not imply that any particular answer is desired or expected. Thank you for your timely response to this clarification. Requestors name: Osvaldo THIS PHYSICIAN QUERY FORM IS A PERMANENT PART OF THE MEDICAL RECORD OSVALDO ALBERT Jul 27, 2023 07:36 JOSIE DIAMOND DO Jul 27, 2023 10:02
--- NOTE | 2023-07-27 07:42 | Physician Query Clarification ---
PQ-Uncertain Diagnosis Admission/Discharge Admission Date: Jul 21, 2023 at 01:04 Discharge Date: Jul 25, 2023 at 13:50 Dr. Diamond, The medical record reflects the following clinical scenario: History/Risk Factors: rt mastitis, Covid Clinical Findings: Bun 15, Cr 0.85 Treatment: IV sodium chloride Question: Is GABE a clinically valid diagnosis? GABE was documented in Dr. Farris's consult with no further documentation in the medical record. Please document a response in Progress Note or Discharge Summary. 1. Yes, clinically valid, condition resolved. 2. No, condition ruled out. 3. Other, with explanation of clinical findings. 4. Undetermined, no explanation for clinical findings. PHYSICIAN RESPONSE Diagnosis clinically valid: Yes, Conditon resolved In responding to this query, please exercise your independent professional judgment. The purpose of this communication is to more accurately reflect the complexity of your patients condition. The fact that a question is asked does not imply that any particular answer is desired or expected. Thank you for your timely response to this clarification. Requestors name: Osvaldo THIS PHYSICIAN QUERY FORM IS A PERMANENT PART OF THE MEDICAL RECORD OSVALDO ALBERT Jul 27, 2023 07:42 JOSIE DIAMOND DO Jul 27, 2023 10:03
--- NOTE | 2023-07-30 11:40 | Physician Query Clarification ---
PQ-Further Specificity Admission/Discharge Admission Date: Jul 21, 2023 at 01:04 Discharge Date: Jul 25, 2023 at 13:50 Dr. Diamond, The medical record reflects the following clinical scenario: History/Risk Factors: rt breast mastitis, Covid Clinical Findings: lactic acid 2.52, T 36.2, P 125, R 21 Treatment: IV Piperacillin, IV Vancomycin Question: Can you further specify whether or not patient had sepsis or severe sepsis per the clinical indicators above? ER documents sepsis and Dr. Butterfield's consult/PN state severe sepsis. DS doesn't mention sepsis or severe sepsis Please document a response in the Progress Notes or Discharge Summary. In pre vious query you indicated other, with explanation of the clinical findings but you did not give an explanation of what the principal diagnosis condition should be. 1. Severe sepsis 2. Sepsis but not severe sepsis 3. Sepsis ruled out. No sepsis or severe sepsis 4. Other, with explanation of the clinical findings. Please specify the principal diagnosis condition 5. Clinically undetermined, no explanation for the clinical findings. PHYSICIAN RESPONSE Can you specify per above: 2 In responding to this query, please exercise your independent professional judgment. The purpose of this communication is to more accurately reflect the complexity of your patients condition. The fact that a question is asked does not imply that any particular answer is desired or expected. Thank you for your timely response to this clarification. Requestors name: Osvaldo THIS PHYSICIAN QUERY FORM IS A PERMANENT PART OF THE MEDICAL RECORD OSVALDO ALBERT Jul 30, 2023 11:39 JOSIE DIAMOND DO Jul 30, 2023 17:37
== END 2023-07-25 13:50 | disposition home or self-care (01) | DRG 871 ==
LOC: EDUNIT# 22:14 → ER 22:17 → ICU 07-21 01:04 → 4TH 07-24 15:34
PROVIDERS: ADMIT Family Medicine; ATTEND Internal Medicine
PROC: 8E0ZXY6 Isolation (ICD-10-PCS; principal; 2023-07-21)
DX: A41.89 Other specified sepsis (principal); E10.10 Type 1 diabetes mellitus with ketoacidosis without coma; U07.1 COVID-19; N17.9 Acute kidney failure, unspecified; N61.1 Abscess of the breast and nipple; B95.61 Methicillin susceptible Staphylococcus aureus infection as the cause of diseases classified elsewhere; E86.0 Dehydration; F32.A Depression, unspecified; F41.9 Anxiety disorder, unspecified; F17.290 Nicotine dependence, other tobacco product, uncomplicated; Z91.09 Other allergy status, other than to drugs and biological substances; Z79.899 Other long term (current) drug therapy
CPT/HCPCS: 36415; 71045; 80048; 80053; 80306; 81000; 82010; 82150; 82805; 82947; 83036; 83605; 83690; 83735; 84100; 84703; 85025; 85027; 85610; 85652; 85730; 86141; 87040; 87070; 87077; 87081; 87088; 87186; 87205; 87636; 93041; 96361; 96365; 96375

== ENCOUNTER 2023-08-05 21:42 | Inpatient (IN) | payer BC, MEDICAID ==
[~2023-08-05] VITALS: Ht 170.3 cm; Wt 83.6 kg
[~2023-08-05 21:42] MED LIST changes: +SULF-221 PO
[2023-08-05] MEDS ORDERED: NS IV 1000 ML 1,000 ML IV SCH (22:00)
[2023-08-05] MEDS ORDERED: PIPERACILLIN/Tazobactam 4.5 GM in NS (IVPB) 100 ML 100 ML IV ONE (22:00)
[2023-08-05] MEDS ORDERED: KETOROLAC INJ 30 MG/ML VIAL IVP ONE (22:15)
[2023-08-05 22:18] LABS: BASOPHILS # (AUTO) 0.1 10^3/uL (0.0-0.1); BASOPHILS % (AUTO) 1 % (0-10); EOSINOPHILS # (AUTO) 0.3 10^3/uL (0.0-0.3); EOSINOPHILS % (AUTO) 2 % (0-10); HEMATOCRIT 26 % (35-52); LYMPHOCYTES # (AUTO) 2.8 10^3/uL (1.0-4.0); LYMPHOCYTES % (AUTO) 20 % (12-44); MEAN CORPUSCULAR HEMOGLOBIN 26 pg (25-34); MEAN CORPUSCULAR HGB CONC 31 g/dL (32-36); MEAN CORPUSCULAR VOLUME 83 fL (80-99); MEAN PLATELET VOLUME 9.6 fL (9.0-12.2); MONOCYTES # (AUTO) 1.1 10^3/uL (0.0-1.0); MONOCYTES % (AUTO) 8 % (0-12); NEUTROPHILS # (AUTO) 9.7 10^3/uL (1.8-7.8); NEUTROPHILS % (AUTO) 69 % (42-75); PLATELET COUNT 536 10^3/uL (130-400)
[2023-08-05 22:38] LABS: ALBUMIN 3.3 GM/DL (3.2-4.5); CALCIUM 8.9 MG/DL (8.5-10.1); CREATININE SERUM 0.8 MG/DL (0.60-1.30); POTASSIUM 3.5 MMOL/L (3.6-5.0); TOTAL PROTEIN 6.9 GM/DL (6.4-8.2)
--- NOTE | 2023-08-05 22:38 | ED General ---
General Stated Complaint: INFECTED RIGHT BREAST PIERCING Source of Information: Patient History of Present Illness Date Seen by Provider: Aug 05, 2023 Time Seen by Provider: 21:50 Initial Comments PT ARRIVES VIA POV FROM HOME PT C/O RIGHT BREAST PAIN, REDNESS AND SWELLING FOR THE LAST 2-3 WEEKS SHE WAS ADMITTED HERE -07/25/23 FOR THIS PROBLEM--SHE STATES IT HAS NOT GOTTEN ANY BETTER, AND CONTINUES TO GET WORSE SHE HAS HAD BOTH NIPPLES PIERCED, AND BELIEVES THAT IT STARTED AT THE SITE OF THE NIPPLE PIERCING. SHE HAD PREVIOUSLY REMOVED BOTH PIERCINGS AND HAS NOT ATTEMPTED TO REPLACE THEM SHE INITIALLY HAD A TINY AMOUNT OF DRAINAGE FROM ONE OF THE PIERCING SITES, BUT STOPPED DRAINING WHILE SHE WAS STILL IN THE HOSPITAL. SHE WAS DISMISSED HOME WITH RX FOR AUGMENTIN. SHE HAS NOT FOLLOWED UP WITH ANYONE SINCE THAT HOSPITALIZATION. SHE HAS NOT HAD FEVER SHE STATES THAT THE PAIN, THE REDNESS AND SWELLING HAVE CONTINUED TO INCREASE SINCE BEING DISMISSED FROM THE HOSPITAL--STATES THE PAIN IS SEVERE AND INTOLERABLE. SHE HAS TRIED TYLENOL AND MOTRIN WITHOUT RELIEF. ADDITIONALLY, PT HAD COVID-19 VIRUS WITH THAT HOSPITALIZATION SHE IS NOT VOICING ANY COMPLAINTS RELATED TO THAT AT THIS TIME PT IS TYPE 1 DIABETIC, WITH A MULTITUDE OF VISITS AND ADMITS FOR DKA, AND SHE WAS ALSO IN DKA AT THE TIME OF THIS MOST RECENT ADMIT. SHE STATES HER BLOOD SUGARS HAVE BEEN "DOING BETTER" AND THE HIGHEST READING TODAY WAS 230. SHE IS NOT VOICING ANY SYMPTOMS OF DKA TODAY PT HAS HAD 20 VISITS IN THE LAST YEAR, WITH MANY OF THOSE REQUIRING ADMITS, AND MOST BEING FOR DKA. LAST HGB A1C DONE HERE ON 07/20/23 WAS 9.9. PCP: DR. LAMBERT AT [facility] Allergies and Home Medications Allergies Coded Allergies: bismuth subsalicylate (Verified Allergy, Unknown, 08/29/22) latex (Unverified Allergy, Unknown, 01/09/23) Patient Home Medication List Home Medication List Reviewed: Yes Acetaminophen (Tylenol Extra Strength) 500 Mg Tablet, 1,000 MG PO Q8H PRN for PAIN-MILD (1-4), (Reported) Entered as Reported by: COLT BOURNE on 02/28/23 1150 Amoxicillin/Potassium Clav (Amox Tr-K Clv 875-125 mg Tab) 875 Mg-125 Mg Tablet, 875 MG PO BID WITH MEALS Prescribed by: Katalina Olsen on 07/25/23 1152 Bupropion HCl (Bupropion HCl) 75 Mg Tablet, 75 MG PO BID, (Reported) Entered as Reported by: COLT BOURNE on 02/28/23 1150 Insulin Glargine,Hum.rec.anlog (Lantus Solostar) 100 Unit/Ml (3 Ml) Insuln.pen, 10-15 UNIT SQ BID Prescribed by: Katalina Olsen on 07/25/23 115 Insulin Lispro (Insulin Lispro Kwikpen U-100) 100 Unit/Ml Insuln.pen, 1-10 UNITS SC AC Prescribed by: Katalina Olsen on 07/25/23 115 Review of Systems Review of Systems Constitutional: no symptoms reported; No dizziness, No fever EENTM: no symptoms reported Respiratory: no symptoms reported; No cough Cardiovascular: no symptoms reported Gastrointestinal: no symptoms reported; No nausea, No vomiting Genitourinary: no symptoms reported Musculoskeletal: no symptoms reported Skin: see HPI Psychiatric/Neurological: No Symptoms Reported Hematologic/Lymphatic: No Symptoms Reported Immunological/Allergic: no symptoms reported Past Qylmqpj-Prcqvs-Jwddqx Hx Patient Social History Tobacco Use?: No Substance use?: Yes Substance type: Marijuana Alcohol Use?: No Immunizations Up To Date Tetanus Booster (TDap): Less than 5yrs PED Vaccines UTD: Yes First/Initial COVID19 Vaccinat: APR 2021 Second COVID19 Vaccination [place]: MAY 2021 Third COVID19 Vaccination Date: APR 2021 Seasonal Allergies Seasonal Allergies: No Past Medical History Surgery/Hospitalization HX: T1DM, PORT PLACEMENT Surgeries: Yes (RIGHT PORT) Respiratory: No Currently Using CPAP: No Currently Using BIPAP: No Cardiac: Yes (TACHYCARDIA) Palpitations Neurological: No Reproductive Disorders: No Female Reproductive Disorders: Denies Sexually Transmitted Disease: No HIV/AIDS: No Genitourinary: Yes Bladder Infection Gastrointestinal: Yes (CANNABIS HYPEREMESIS; CHRONIC 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 DX AGE 12) Diabetes, Insulin dep HEENT: No Loss of Vision: Denies Hearing Impairment: Denies Cancer: No Psychosocial: Yes Anxiety, Depression Integumentary: No Blood Disorders: No Adverse Reaction/Blood Tranf: No Family Medical History No Pertinent Family Hx, Other Conditions/Hx SOCIAL HISTORY: -SMOKING DENIES USE; DOES VAPE NICOTINE -ETOH DENIES USE -DRUGS--THC IN PAST, NO RECENT USE DELIVERED 12/07/22--STILLBORN AT 29/30 WEEKS GESTATION. Physical Exam Vital Signs Vital Signs - First Documented 08/05/23 21:51 Temp 36.8 Pulse 117 Resp 18 B/P (MAP) 149/89 (109) Pulse Ox 100 Capillary Refill : Height, Weight, BMI Height: 5'9.00" Weight: 255lbs. 0oz. 115.309081cy; 27.10 BMI Method:Stated General Appearance: No Apparent Distress, WD/WN HEENT: Normal ENT Inspection, Moist Mucous Membranes Neck: Normal Inspection Respiratory: Normal Breath Sounds, No Accessory Muscle Use, No Respiratory Distress, Other (RIGHT BREAST WITH SIGNIFICANT SWELLING --AT LEAST TWICE THE SIZE OF LEFT BREAST, VERY FIRM/HARD, DIFFUSE ERYTHEMA AND WARMTH. NO DRAINAGE. NO FLUCTUANCE. 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 Norm as Tested Skin: Normal Color, Warm/Dry, Other ( ABOVE) Focused Exam Sepsis Stage: Sepsis Possible Source: Skin/Soft Tissue (RIGHT BREAST) Lactate Level 08/05/23 00:35: Lactic Acid Level 3.53*H 08/05/23 22:10: Lactic Acid Level 5.24*H Time of Focused Exam: 23:30 Respiratory: Normal Breath Sounds, No Accessory Muscle Use, No Respiratory Distress Cardiovascular: No Edema, No Murmur, Tachycardia Capillary Refill: Less Than 3 Seconds Skin: normal color, warm/dry Lactic Acid Level Laboratory Tests Test 08/05/23 00:35 08/05/23 22:10 Lactic Acid Level 3.53 MMOL/L (0.50-2.00) *H 5.24 MMOL/L (0.50-2.00) *H Within 3hrs of presentation: Admin fluids, Admin ABX, Blood cultures prior to ABX's, Focus exam, Lactate level Procedures/Interventions Date of ETT Placement: Feb 18, 2021 Time of ETT Placement: 1432 Progress/Results/Core Measures Suspected Sepsis SIRS Temperature: Pulse: Respiratory Rate: Laboratory Tests 08/05/23 22:10: White Blood Count 14.0H Blood Pressure / Mean: 08/05/23 00:35: Lactic Acid Level 3.53*H 08/05/23 22:10: Lactic Acid Level 5.24*H Laboratory Tests 08/05/23 22:10: Creatinine 0.80, INR Comment 0.9, Platelet Count 536H, Total Bilirubin 0.2 Results/Orders Lab Results Laboratory Tests Test 08/05/23 00:35 08/05/23 22:04 08/05/23 22:10 Range/Units Lactic Acid Level 3.53 *H 5.24 *H 0.50-2.00 MMOL/L Glucometer 129 H 70-110 MG/DL White Blood Count 14.0 H 4.3-11.0 10^3/uL Red Blood Count 3.13 L 3.80-5.11 10^6/uL Hemoglobin 8.0 L 11.5-16.0 g/dL Hematocrit 26 L 35-52 % Mean Corpuscular Volume 83 80-99 fL Mean Corpuscular Hemoglobin 26 25-34 pg Mean Corpuscular Hemoglobin Concent 31 L 32-36 g/dL Red Cell Distribution Width 16.7 H 10.0-14.5 % Platelet Count 536 H 130-400 10^3/uL Mean Platelet Volume 9.6 9.0-12.2 fL Immature Granulocyte % (Auto) 1 % Neutrophils (%) (Auto) 69 42-75 % Lymphocytes (%) (Auto) 20 12-44 % Monocytes (%) (Auto) 8 0-12 % Eosinophils (%) (Auto) 2 0-10 % Basophils (%) (Auto) 1 0-10 % Neutrophils # (Auto) 9.7 H 1.8-7.8 10^3/uL Lymphocytes # (Auto) 2.8 1.0-4.0 10^3/uL Monocytes # (Auto) 1.1 H 0.0-1.0 10^3/uL Eosinophils # (Auto) 0.3 0.0-0.3 10^3/uL Basophils # (Auto) 0.1 0.0-0.1 10^3/uL Immature Granulocyte # (Auto) 0.1 0.0-0.1 10^3/uL Erythrocyte Sedimentation Rate > 140 H 0-20 MM/HR Prothrombin Time 12.5 12.2-14.7 SEC INR Comment 0.9 0.8-1.4 Activated Partial Thromboplast Time 26 24-35 SEC Sodium Level 140 135-145 MMOL/L Potassium Level 3.5 L 3.6-5.0 MMOL/L Chloride Level 106 98-107 MMOL/L Carbon Dioxide Level 18 L 21-32 MMOL/L Anion Gap 16 H 5-14 MMOL/L Blood Urea Nitrogen 9 7-18 MG/DL Creatinine 0.80 0.60-1.30 MG/DL Estimat Glomerular Filtration Rate 107 BUN/Creatinine Ratio 11 Glucose Level 133 H 70-105 MG/DL Calcium Level 8.9 8.5-10.1 MG/DL Corrected Calcium 9.5 8.5-10.1 MG/DL Total Bilirubin 0.2 0.1-1.0 MG/DL Aspartate Amino Transf (AST/SGOT) 15 5-34 U/L Alanine Aminotransferase (ALT/SGPT) 17 0-55 U/L Alkaline Phosphatase 283 H 40-136 U/L C-Reactive Protein High Sensitivity 11.69 H 0.00-0.50 MG/DL Total Protein 6.9 6.4-8.2 GM/DL Albumin 3.3 3.2-4.5 GM/DL Beta-Hydroxybutyrate (Chem panel) 0.22 0.00-0.27 MMOL/L Serum Test, Qualitative NEGATIVE NEGATIVE My Orders Orders - LADONNA RANGEL DO Accucheck Stat ONCE (08/05/23 21:51) Ed Iv/Invasive Line Start (08/05/23 21:51) Monitor-Rhythm Ecg Trace Only (08/05/23 21:51) Cbc And Automated Diff (08/05/23 21:51) Comprehensive Metabolic Panel (08/05/23 21:51) Hs C Reactive Protein (08/05/23 21:51) Hcg,Qualitative Serum (08/05/23 21:51) Ua Culture If Indicated (08/05/23 21:51) Erythrocyte Sedimentation Rate (08/05/23 21:51) Blood Culture (08/05/23 21:51) Urine Culture (08/05/23 21:51) Protime With Inr (08/05/23 21:51) Partial Thromboplastin Time (08/05/23 21:51) Chest 1 View, Ap/Pa Only (08/05/23 21:51) Ed Iv/Invasive Line Start (08/05/23 21:51) Vital Signs Adult Sepsis Patie Q15M (08/05/23 21:51) Remove Rings In Anticipation O (08/05/23 21:51) Lactic Acid Analyzer (08/05/23 21:51) Ns Iv 1000 Ml (Ns Iv 1000 Ml) (08/05/23 22:00) Piperacillin/Tazobactam (Piperacillin/Ta (08/05/23 22:00) Beta Hydroxybutyrate (08/05/23 21:51) Venous Blood Gas (08/05/23 21:51) Vancomycin Injection (Vancomycin Injecti (08/05/23 22:15) Ketorolac Injection (Ketorolac Injection (08/05/23 22:15) Fentanyl Injection (Fentanyl Injection (08/05/23 23:15) Ed Iv/Invasive Line Start (08/05/23 23:01) Ns Iv 1000 Ml (Ns Iv 1000 Ml) (08/05/23 23:15) Medications Given in ED Current Medications Medications Dose Ordered Sig/Thierno Route Start Time Stop Time Status Last Admin Dose Admin Fentanyl Citrate 50 mcg ONCE ONCE IVP 08/05/23 23:15 08/05/23 23:16 DC 08/05/23 23:45 50 MCG Ketorolac Tromethamine 30 mg ONCE ONCE IVP 08/05/23 22:15 08/05/23 22:16 DC 08/05/23 22:24 30 MG Piperacillin Sod/ Tazobactam Sod 4.5 gm/Sodium Chloride 100 ml @ 200 mls/hr ONCE ONCE IV 08/05/23 22:00 08/05/23 22:29 DC 08/05/23 22:24 200 MLS/HR Vital Signs/I&O 08/05/23 21:51 Temp 36.8 Pulse 117 Resp 18 B/P (MAP) 149/89 (109) Pulse Ox 100 08/05/23 23:59 Intake Total 100 ml Balance 100 ml Capillary Refill : Point of Care Testing Finger Stick Blood Glucose: 129 Blood Glucose Action Taken: DR RANGEL Progress Note : Progress Note VITALS ON ARRIVAL: TEMP 36.8=98.2, HR 117, RR 18, BP 149/89, O2 SAT 100% ON ROOM AIR GIVEN: -IV FLUIDS -ZOSYN + VANCOMYCIN -TORADOL -FENTANYL LABS: -CBC WITH WBC 14.0, HGB 8.0, PLT 536,000 -CMP WITH NA 140, K 3.5, CO2 18, ANION GAP 16, BUN 9, CR 0.80, GLU 133 -ALK PHOS 283 -SED RATE > 140 -CRP 11.69 -BETA HYDROXYBUTYRATE 0.22 -LACTIC ACID 5.24 -HCG NEGATIVE -PT/PTT/INR NORMAL UNEVENTFUL ER STAY NO DETERIORATION IN PT'S CONDITION DURING ER STAY DISCUSSED TEST RESULTS, NEED FOR ADMIT AND PT IS AGREEABLE TO PLAN REVIEWED PRIOR RECORDS, INCLUDING ER VISITS, ADMITS/H&P'S/CONSULTS/DISCHARGE SUMMARIES, TESTS/PROCEDURES. Departure Communication (Admissions) 2254--SPOKE WITH DR. SMYTH, HOSPITALIST FOR [facility] . ACCEPTS PT FOR ADMIT. 2256--REPORT TO E-ICU PHYSICIAN. Impression Primary Impression: Sepsis Additional Impressions: Acute mastitis of right breast Type 1 diabetes mellitus Anemia Disposition: ADMITTED INPATIENT Condition: Stable Admissions Decision to Admit Reason: Admit from ER (General) Decision to Admit/Date: Aug 05, 2023 Time/Decision to Admit Time: 23:00 Departure-Patient Inst. Referrals: COLT LAMBERT DO (PCP/Family) Primary Care Physician LADONNA RANGEL DO Aug 05, 2023 22:38
[2023-08-05 22:40] LABS: INR 0.9 (0.8-1.4); PROTHROMBIN TIME PATIENT 12.5 SEC (12.2-14.7)
[2023-08-05 22:53] LABS: BILIRUBIN,TOTAL 0.2 MG/DL (0.1-1.0)
[2023-08-05 22:56] LABS: ERYTHROCYTE SEDIMENTATION RATE > 140 MM/HR (0-20)
[2023-08-05] MEDS ORDERED: fentaNYL INJECTION 100 MCG/2 ML VIAL IVP ONE (23:15)
[2023-08-05] MEDS: NS IV 1000 ML 1,000 ML IV SCH (23:45)
[2023-08-06] VITALS (15 sets, daily range): BP systolic 114–149; BP diastolic 60–87
[2023-08-06] MEDS: NS IV 1000 ML 1,000 ML IV SCH ×5 (00:04→20:54)
[2023-08-06] MEDS: VANCOMYCIN INJECTION 750 MG in NS (IVPB) 250 ML 250 ML IV SCH ×2 (00:29→01:38)
[2023-08-06] MEDS ORDERED: KETOROLAC INJ 30 MG/ML VIAL ONE (00:56)
[2023-08-06] MEDS ORDERED: ONDANSETRON INJECTION 4 MG/2 ML (SDV) IV PRN ×2 (01:00→04:45)
[2023-08-06] MEDS ORDERED: ACETAMINOPHEN 500 MG TABLET PO PRN (01:00)
[2023-08-06] MEDS: KETOROLAC INJ 30 MG/ML VIAL IVP PRN ×4 (01:00→20:54)
[2023-08-06] MEDS ORDERED: VASOPRESSIN INJECTION 20 UNIT in NS (IVPB) 100 ML 100 ML IV SCH (01:15)
[2023-08-06] MEDS ORDERED: EPINEPHrine 1 MG INJECTION 4 MG in NS (IVPB) 250 ML 248 ML IV SCH (01:15)
[2023-08-06] MEDS ORDERED: NOREPINEPHRINE 8 MG/250 ML 250 ML IV SCH (01:15)
[2023-08-06] MEDS: fentaNYL INJECTION 100 MCG/2 ML VIAL IV PRN ×6 (02:02→22:55)
[2023-08-06] MEDS: PIPERACILLIN/Tazobactam 4.5 GM in NS (IVPB) 100 ML 100 ML IV SCH ×3 (02:55→17:38)
[2023-08-06] MEDS ORDERED: ACETAMINOPHEN 325 MG TABLET PO PRN (04:45)
[2023-08-06] MEDS ORDERED: ENOXAPARIN 40 MG/0.4 ML SYRINGE SC SCH (04:45)
[2023-08-06] MEDS ORDERED: NS IV 500 ML 500 ML IV PRN ×2 (04:45)
[2023-08-06] MEDS ORDERED: ONDANSETRON 4 MG ORAL DISSOLVE TABLET PO PRN (04:45)
[2023-08-06] MEDS ORDERED: MELATONIN 3 MG TABLET PO PRN (04:45)
[2023-08-06] MEDS ORDERED: MILK OF MAGNESIA 400 MG/5 ML 30 ML UDC PO PRN (04:45)
[2023-08-06] MEDS ORDERED: LACTULOSE SYRUP 10GM/15ML 30ML UDC PO PRN (04:45)
[2023-08-06] MEDS ORDERED: diphenhydrAMINE INJ 50 MG/ML VIAL IVP PRN (04:45)
[2023-08-06] MEDS ORDERED: ANTACID SUSPENSION 30 ML UDC PO PRN (04:45)
[2023-08-06] MEDS ORDERED: BISACODYL 10 MG SUPPOSITORY PR PRN (04:45)
[2023-08-06] MEDS ORDERED: HYDROmorphone INJECTION 2 MG/ML VIAL IV PRN (04:45)
[2023-08-06] MEDS ORDERED: CALCIUM CARBONATE 500 MG CHEW TABLET PO PRN (04:45)
[2023-08-06] MEDS ORDERED: diphenhydrAMINE 25 MG TABLET PO PRN (04:45)
[2023-08-06 05:02] LABS: BASOPHILS # (AUTO) 0.1 10^3/uL (0.0-0.1); BASOPHILS % (AUTO) 1 % (0-10); EOSINOPHILS # (AUTO) 0.3 10^3/uL (0.0-0.3); EOSINOPHILS % (AUTO) 2 % (0-10); HEMATOCRIT 27 % (35-52); HEMOGLOBIN 8.2 g/dL (11.5-16.0); LYMPHOCYTES # (AUTO) 2.7 10^3/uL (1.0-4.0); LYMPHOCYTES % (AUTO) 20 % (12-44); MEAN CORPUSCULAR HEMOGLOBIN 26 pg (25-34); MEAN CORPUSCULAR HGB CONC 31 g/dL (32-36); MEAN CORPUSCULAR VOLUME 83 fL (80-99); MEAN PLATELET VOLUME 9.6 fL (9.0-12.2); MONOCYTES # (AUTO) 1.3 10^3/uL (0.0-1.0); MONOCYTES % (AUTO) 10 % (0-12); NEUTROPHILS # (AUTO) 9.4 10^3/uL (1.8-7.8); NEUTROPHILS % (AUTO) 68 % (42-75); PLATELET COUNT 433 10^3/uL (130-400); WHITE BLOOD COUNT 13.9 10^3/uL (4.3-11.0)
[2023-08-06 05:34] LABS: ALBUMIN 2.6 GM/DL (3.2-4.5); BILIRUBIN,TOTAL 0.2 MG/DL (0.1-1.0); CALCIUM 7.7 MG/DL (8.5-10.1); CREATININE SERUM 0.71 MG/DL (0.60-1.30); MAGNESIUM 1.7 MG/DL (1.6-2.4); TOTAL PROTEIN 5.3 GM/DL (6.4-8.2)
--- NOTE | 2023-08-06 05:59 | Diagnostic Imaging Report ---
INDICATION: Sepsis. Comparison is made with prior exam of 07/20/2023. FINDINGS: The heart size is normal. The lungs are clear. There is no pleural effusion or pneumothorax. The mediastinum is unremarkable. Uqjpsi-I-Leij catheter has its tip in the superior vena cava. IMPRESSION: No acute cardiopulmonary abnormality Dictated by: Dictated on workstation # [id number]
[2023-08-06] MEDS ORDERED: POTASSIUM CL 10MEQ/50ML IVPB 50 ML IV SCH ×2 (06:00)
[2023-08-06] MEDS ORDERED: MAGNESIUM 1 GM/100 ML IVPB 100 ML IV SCH ×2 (06:00)
[2023-08-06] MEDS ORDERED: POTASSIUM CHLORIDE 20 MEQ TABLET PO SCH ×2 (06:00)
[2023-08-06] MEDS: POTASSIUM CL 10MEQ/50ML IVPB 50 ML IV SCH ×4 (06:16→09:48)
[2023-08-06] MEDS: inSUlin ASPART 1 UNIT/0.01 ML (PER UNIT) SC SCH ×4 (06:16→20:56)
[2023-08-06] MEDS: oxyCODONE IMMEDIATE RELEASE 5 MG TABLET PO PRN ×2 (07:59→22:54)
[2023-08-06] MEDS: MAGNESIUM 1 GM/100 ML IVPB 100 ML IV SCH ×4 (08:18→10:05)
[2023-08-06] MEDS: DOCUSATE SODIUM 100 MG CAPSULE PO SCH ×2 (09:51→21:45)
[2023-08-06] MEDS: SENNOSIDES 8.6 MG TABLET PO SCH ×2 (09:51→21:45)
--- NOTE | 2023-08-06 10:39 | History & Physical-Hospitalist ---
CAN MACK 08/06/23 1039: History of Present Illness HPI/Chief Complaint 23 year old female with a history of Type 1 DM and acute mastitis of her right breast presented to the ED on 07/26 for right breast mastitis. Pt was admitted due to concerns of sepsis and the acute mastitis. Today the pt's only complaint is that her right breast is in a lot of pain. Pain was rated greater than a 10/10. Described as a sore ache and pressure that has been worsening. No radiation. Localized to right breast. Source: patient Date Seen 08/06/23 Time Seen by a Provider: 08:00 Attending Physician PCP Admitting Physician: Patito Diamond DO Attending Physician: Patito Diamond DO Referring Physician Date of Admission Aug 05, 2023 at 23:28 Home Medications & Allergies Home Medications Reviewed patient Home Medication Reconciliation performed by pharmacy medication reconciliations plant health care technician and/or nursing. Patients Allergies have been reviewed. Allergies Allergies Coded Allergies bismuth subsalicylate (Verified Allergy, Unknown, 08/29/22) latex (Unverified Allergy, Unknown, 01/09/23) Past Cjbqewf-Ncezjo-Vjjfgi Hx Patient Social History Tobacco Use?: No Use of E-Cig and/or Vaping dev: Yes E-Cig or Vaping type used: Nicotine Substance use?: Yes Substance type: Marijuana Alcohol Use?: No Alcohol type: Beer Alcohol Frequency: Rarely Pt feels they are or have been: No Immunizations Up To Date Date of Influenza Vaccine: Jul 25, 2022 First/Initial COVID19 Vaccinat: APR 2021 Second COVID19 Vaccination [place]: MAY 2021 Tetanus Booster (TDap): Unknown Hepatitis A: No Hepatitis B: No PED Vaccines UTD: Yes Seasonal Allergies Seasonal Allergies: No Current Status status: No Advance Directives: No Communicates: Verbally Primary Language: Turkish Preferred Spoken Language: Turkish Is interpretation needed?: No Implanted or Applied Medical D: None Past Medical History Currently Using CPAP: No Currently Using BIPAP: No Palpitations Sexually Transmitted Disease: No HIV/AIDS: No Bladder Infection Diabetes, Insulin dep Loss of Vision: Denies Hearing Impairment: Denies Anxiety, Depression Blood Disorders: No Adverse Reaction/Blood Tranf: No PMHx: Type I DM Depression SurgHx: port placement Denies Family Medical History No Pertinent Family Hx, Other Conditions/Hx SOCIAL HISTORY: -SMOKING DENIES USE; DOES VAPE NICOTINE -ETOH DENIES USE -DRUGS--THC IN PAST, NO RECENT USE DELIVERED 12/07/22--STILLBORN AT 29/30 WEEKS GESTATION. Review of Systems Constitutional: No chills, No dizziness, No fever, No weakness EENTM: No hearing loss, No ear pain, No blurred vision, No double vision, No eye pain Respiratory: No cough, No short of breath Cardiovascular: No chest pain, No palpitations Gastrointestinal: No abdominal pain Skin: other (rt breast pain) Psychiatric/Neurological: Denies Headache, Denies Numbness Physical Exam Physical Exam Vital Signs Vital Signs - First Documented 08/05/23 08/06/23 21:51 00:00 Temp 36.8 Pulse 117 Resp 18 B/P (MAP) 149/89 (109) Pulse Ox 100 O2 Delivery Room Air Capillary Refill : Less Than 3 Seconds Height, Weight, BMI Height: 5'9.00" Weight: 255lbs. 0oz. 115.025436rd; 28.82 BMI Method:Stated General Appearance: Mild Distress Eyes: Bilateral Eye PERRL, Bilateral Eye EOMI HEENT: No Photophobia, No Scleral Icterus (L), No Scleral Icterus (R) Neck: Full Range of Motion, Normal Inspection, Non Tender Respiratory: Chest Non Tender, Lungs Clear, Normal Breath Sounds, No Accessory Muscle Use, No Respiratory Distress Cardiovascular: No Edema, No Murmur, Normal Peripheral Pulses (2+ b/l radius and post tibialis), Tachycardia (120) Gastrointestinal: Normal Bowel Sounds, Non Tender Extremity: Normal Capillary Refill, No Calf Tenderness Neurologic/Psychiatric: Alert, Oriented x3, No Motor/Sensory Deficits, Normal Mood/Affect, knowledge analyst II-XII Norm as Tested Skin: Other (did not perform breast exam. Could not find a nurse to mammal keeper.) Results Results/Procedures Labs Laboratory Tests 08/05/23 22:10 08/06/23 04:35 Patient resulted labs reviewed. Assessment/Plan Assessment and Plan Assessment: Sepsis Rt Acute Mastitis Type 1 DM Plan: Sepsis -continue to monitor SIRS criteria Rt Acute Mastitis -surgery was consulted for possibility of abscess -continue pain management Type 1 DM -monitor glc levels -continue DM treatment PATITO DIAMOND DO 08/07/23 0435: History of Present Illness HPI/Chief Complaint Chief complaint: Right breast pain with severe mastitis HPI: This is a 23-year-old female who is known to us from multiple DKA admissions who presented with right breast pain worse since discharge on Augmentin. She is found to have an abscess wire surgical intervention. Source: patient Exam Limitations: no limitations Past Zpbvvut-Rfqfzc-Jubftx Hx Patient Social History Marrital Status: single Employed/Student: unemployed Smoking Status: Never a Smoker Past Medical History Diabetes, Insulin dep Review of Systems Constitutional: see HPI, dizziness, fever, malaise, weakness Physical Exam Physical Exam General Appearance: No Apparent Distress, Anxious Eyes: Right Eye Normal Inspection, Right Eye PERRL HEENT: PERRL/EOMI, Normal ENT Inspection, Pharynx Normal, Moist Mucous Membranes Neck: Full Range of Motion, Normal Inspection, Non Tender Respiratory: Chest Non Tender, Lungs Clear, Normal Breath Sounds, No Accessory Muscle Use, No Respiratory Distress Cardiovascular: Regular Rate, Rhythm, No Edema, No Gallop, No JVD, No Murmur, Normal Peripheral Pulses Gastrointestinal: Normal Bowel Sounds, No Organomegaly, No Pulsatile Mass, Non Tender, Soft Back: Normal Inspection, No CVA Tenderness, No Vertebral Tenderness Extremity: Normal Capillary Refill, Normal Inspection, Normal Range of Motion, Non Tender, No Calf Tenderness, No Pedal Edema Neurologic/Psychiatric: Alert, Oriented x3, No Motor/Sensory Deficits, Normal Mood/Affect Skin: Normal Color, Warm/Dry, Other (Right breast erythema and fluctuant mass) Lymphatic: No Adenopathy Assessment/Plan Admission Diagnosis Assessment: Right breast mastitis with abscess failed oral Type 1 diabetes with multiple DKA admissions Plan: General surgery consult Dr. Lewis consult appreciated Ultrasound IV antibiotics Moved to fourth floor Admission Status: Inpatient Order (span 2 midnights) Reason for Inpatient Admission: Sepsis with high risk for DKA Supervisory-Addendum Brief Verification & Attestation Participated in pt care: history, MDM, physical Personally performed: exam, history, MDM, supervision of care Care discussed with: Medical Student Procedures: n/a Results interpretation: Verified all documentation Verification and Attestation of Medical Student E/M Service A medical student performed and documented this service in my presence. I reviewed and verified all information documented by the medical student and made modifications to such information, when appropriate. I personally performed the physical exam and medical decision making. Patito Diamond, Aug 07, 2023,04:35 CAN MACK Aug 06, 2023 10:39 PATITO DIAMOND DO Aug 07, 2023 04:35
[2023-08-06] MEDS ORDERED: inSUlin DETERMIR 1 UNIT/0.01 ML (CHARGE PER UNIT) SQ ONE (10:45)
[2023-08-06] MEDS: ENOXAPARIN 40 MG/0.4 ML SYRINGE SC SCH ×2 (12:21→12:23)
--- NOTE | 2023-08-06 12:57 | Diagnostic Imaging Report ---
INDICATION: Right breast swelling and redness. Patient had recent nipple piercing. TECHNIQUE: Sonographic interrogation of the periareolar region of the right breast was performed. FINDINGS: There is a large complex fluid collection approximately 1 cm deep to the skin surface measuring approximately 7 x 8 cm, suggestive of an abscess. No internal vascularity is seen. There is some vascularity along the margins. IMPRESSION: A large complex fluid collection in the retroareolar right breast is suggestive of an abscess. Followup ultrasound after a course of therapy is recommended to confirm complete resolution. ACR BI-RADS Category 3: Probably benign findings. Dictated by: Dictated on workstation # [id number]
--- NOTE | 2023-08-06 13:05 | Consultation - Surgery ---
JAYLAMOSHE 08/06/23 1305: History of Present Illness History of Present Illness Patient Consulted On(anders/time) 08/06/23 13:05 Date Seen by Provider: Aug 06, 2023 Time Seen by Provider: 11:30 History of Present Illness This is a 23 yo female with pmh of Type 1 diabetes with multiple hospitalizations for DKA and a recent hospitalization on 07/20 where she was dx with right breast mastitis and treated with IV antibiotics for 5 days and discharged with 5 days of Augmentin PO. Pt states that right breast pain and sw ellling have worsened since being hospitalized and is now a 10 pain and is exquisitely tender to touch even with clothing. Pt stated that about two weeks before hospitalization on 07/20 she had both nipples pierced, but has since removed them. Pt has not followed up after 07/20 hospitalization. Denies fever, SOA, nausea, vomiting, diarrhea, nipple drainage. Ultrasound techs were in room during examination Allergies and Home Medications Allergies Coded Allergies: bismuth subsalicylate (Verified Allergy, Unknown, 08/29/22) latex (Unverified Allergy, Unknown, 01/09/23) Patient Home Medication List Acetaminophen (Tylenol Extra Strength) 500 Mg Tablet, 1,000 MG PO Q8H PRN for PAIN-MILD (1-4), (Reported) Entered as Reported by: COLT BOURNE on 02/28/23 115 Last Action: Reviewed Bupropion HCl (Bupropion HCl) 75 Mg Tablet, 75 MG PO BID, (Reported) Entered as Reported by: COLT BOURNE on 02/28/23 115 Last Action: Reviewed Insulin Glargine,Hum.rec.anlog (Lantus Solostar) 100 Unit/Ml (3 Ml) Insuln.pen, 10-15 UNIT SQ BID Prescribed by: Katalina Olsen on 07/25/23 115 Last Action: Reviewed Insulin Lispro (Insulin Lispro Kwikpen U-100) 100 Unit/Ml Insuln.pen, 1-10 UNITS SC AC Prescribed by: Katalina Olsen on 07/25/23 115 Last Action: Reviewed Past Vxmvzcf-Innskn-Gwxyxb Hx Patient Social History Type Used: Electronic/Vapor 2nd Hand Smoke Exposure: No Recent Hopitalizations: Yes (DKA) Alcohol Use?: No Substance type: Marijuana Immunizations Up To Date Tetanus Booster (TDap): Less than 5yrs PED Vaccines UTD: Yes Date of Influenza Vaccine: Jul 25, 2022 Seasonal Allergies Seasonal Allergies: No Surgeries History of Surgeries: Yes (RIGHT PORT) Respiratory History of Respiratory Disorde: No Cardiovascular History of Cardiac Disorders: Yes (TACHYCARDIA) Cardiac Disorders: Palpitations Neurological History of Neurological Disord: No Reproductive System Hx Reproductive Disorders: No Sexually Transmitted Disease: No HIV/AIDS: No Female Reproductive Disorders: Denies Genitourinary History of Genitourinary Disor: Yes Genitourinary Disorders: Bladder Infection Gastrointestinal History of Gastrointestinal Di: Yes (CANNABIS HYPEREMESIS; CHRONIC N/V AND ABDOMINAL PAIN ) Musculoskeletal History of Musculoskeletal Dis: No Endocrine History of Endocrine Disorders: Yes (TYPE 1 DIABETES WITH MULTIPLE EPISODES OF DKA. DX AGE 12) Endocrine Disorders: Diabetes, Insulin dep HEENT History of HEENT Disorders: No Loss of Vision: Denies Hearing Impairment: Denies Cancer History of Cancer: No Psychosocial History of Psychiatric Problem: Yes Behavioral Health Disorders: Anxiety, Depression Integumentary History of Skin or Integumenta: No Blood Transfusions History of Blood Disorders: No Adverse Reaction to a Blood Tr: No Family Medical History Significant Family History: No Pertinent Family Hx, Other Conditions/Hx Review of Systems-General Constitutional: No chills, No diaphoresis EENTM: No nose pain, No throat pain Respiratory: No cough, No short of breath Cardiovascular: No edema, No palpitations Gastrointestinal: No abdominal pain, No constipation, No diarrhea Genitourinary: No dysuria, No frequency Musculoskeletal: No back pain, No joint pain; other (right breast pain) Skin: change in color (right breast); No pruritus, No rash Psychiatric/Neurological: Denies Headache, Denies Numbness Physical Exam-General Problems Physical Exam Vital Signs Vital Signs - First Documented 08/05/23 08/06/23 21:51 00:00 Temp 36.8 Pulse 117 Resp 18 B/P (MAP) 149/89 (109) Pulse Ox 100 O2 Delivery Room Air Capillary Refill : Less Than 3 Seconds General Appearance: WD/WN HEENT: PERRL/EOMI, pharynx normal Neck: non-tender, full range of motion, supple Respiratory: lungs clear, normal breath sounds, no respiratory distress Cardiovascular: regular rate, rhythm, no edema, no murmur Peripheral Pulses: 2+ Dorsalis Pedis (R), 2+ Left Dors-Pedis (L), 2+ Radial Pulses (R), 2+ Radial Pulses (L) Gastrointestinal: non tender, soft Extremities: non-tender, no pedal edema, no calf tenderness Neurologic/Psychiatric: no motor/sensory deficits, alert, normal mood/affect, oriented x 3 Skin: warm/dry (right breast is erythematous, swollen, and warm to touch. Painful to palpation. Left breast is normal. ), other (Right breast is erythymatous, swollen, and warm. Extreme pain with palpation. Mass palpated subareolar region. About 2x the size of the left breast. Left breast is normal.) Lymphatic: no adenopathy Data Review Labs Laboratory Tests 08/05/23 22:04: Glucometer 129H 08/05/23 22:10: White Blood Count 14.0H, Red Blood Count 3.13L, Hemoglobin 8.0L, Hematocrit 26L, Mean Corpuscular Volume 83, Mean Corpuscular Hemoglobin 26, Mean Corpuscular Hemoglobin Concent 31L, Red Cell Distribution Width 16.7H, Platelet Count 536H, Mean Platelet Volume 9.6, Immature Granulocyte % (Auto) 1, Neutrophils (%) (Auto) 69, Lymphocytes (%) (Auto) 20, Monocytes (%) (Auto) 8, Eosinophils (%) (Auto) 2, Basophils (%) (Auto) 1, Neutrophils # (Auto) 9.7H, Lymphocytes # (Auto) 2.8, Monocytes # (Auto) 1.1H, Eosinophils # (Auto) 0.3, Basophils # (Auto) 0.1, Immature Granulocyte # (Auto) 0.1, Erythrocyte Sedimentation Rate > 140H, Prothrombin Time 12.5, INR Comment 0.9, Activated Partial Thromboplast Time 26, Sodium Level 140, Potassium Level 3.5L, Chloride Level 106, Carbon Dioxide Level 18L, Anion Gap 16H, Blood Urea Nitrogen 9, Creatinine 0.80, Estimat Glomerular Filtration Rate 107, BUN/Creatinine Ratio 11, Glucose Level 133H, Lactic Acid Level 5.24*H, Calcium Level 8.9, Corrected Calcium 9.5, Total Bilirubin 0.2, Aspartate Amino Transf (AST/SGOT) 15, Alanine Aminotransferase (ALT/SGPT) 17, Alkaline Phosphatase 283H, C-Reactive Protein High Sensitivity 11.69H, Total Protein 6.9, Albumin 3.3, Beta-Hydroxybutyrate (Chem panel) 0.22, Serum Test, Qualitative NEGATIVE 08/06/23 00:05: Glucometer 58*L 08/06/23 01:45: Glucometer 219H 08/06/23 02:35: Lactic Acid Level 1.45 08/06/23 04:35: White Blood Count 13.9H, Red Blood Count 3.22L, Hemoglobin 8.2L, Hematocrit 27L, Mean Corpuscular Volume 83, Mean Corpuscular Hemoglobin 26, Mean Corpuscular He moglobin Concent 31L, Red Cell Distribution Width 16.4H, Platelet Count 433H, Mean Platelet Volume 9.6, Immature Granulocyte % (Auto) 1, Neutrophils (%) (Auto) 68, Lymphocytes (%) (Auto) 20, Monocytes (%) (Auto) 10, Eosinophils (%) (Auto) 2, Basophils (%) (Auto) 1, Neutrophils # (Auto) 9.4H, Lymphocytes # (Aut o) 2.7, Monocytes # (Auto) 1.3H, Eosinophils # (Auto) 0.3, Basophils # (Auto) 0.1, Immature Granulocyte # (Auto) 0.1, Sodium Level 140, Potassium Level 3.0L, Chloride Level 111H, Carbon Dioxide Level 14L, Anion Gap 15H, Blood Urea Nitrogen 10, Creatinine 0.71, Estimat Glomerular Filtration Rate 124, BUN/Creatinine Ratio 14, Glucose Level 220H, Calcium Level 7.7L, Corrected Calcium 8.8, Magnesium Level 1.7, Total Bilirubin 0.2, Aspartate Amino Transf (AST/SGOT) 17, Alanine Aminotransferase (ALT/SGPT) 14, Alkaline Phosphatase 231H , Total Protein 5.3L, Albumin 2.6L, Beta-Hydroxybutyrate (Chem panel) 0.43H 08/06/23 11:30: Glucometer 358H Assessment/Plan Assessment/Plan Assessment/Plan Right Breast Abscess US- showed 7x8cm fluid filled mass suggestive of abscess NPO Pain meds Abx I&D and all other indicated procedures Consent CAILIN TORRES DO 08/06/23 3001: History of Present Illness History of Present Illness History of Present Illness Consult for right breast abscess. Patient is a 23 year old female with pain in the right breast for about 2 weeks. Has continued to worsen. Was given antibiotics previously but now worsening. Patient with history of having nipples pierced. Having 10/10 pain. Nothing making better or worse. Patient had u/s demonstrating findings of right breast with large abscess. Allergies and Home Medications Allergies Coded Allergies: bismuth subsalicylate (Verified Allergy, Unknown, 08/29/22) latex (Unverified Allergy, Unknown, 01/09/23) Patient Home Medication List Home Medication List Reviewed: Yes Acetaminophen (Tylenol Extra Strength) 500 Mg Tablet, 1,000 MG PO Q8H PRN for PAIN-MILD (1-4), (Reported) Entered as Reported by: COLT BOURNE on 02/28/23 115 Last Action: Reviewed Bupropion HCl (Bupropion HCl) 75 Mg Tablet, 75 MG PO BID, (Reported) Entered as Reported by: COLT BOURNE on 02/28/23 1150 Last Action: Reviewed Insulin Glargine,Hum.rec.anlog (Lantus Solostar) 100 Unit/Ml (3 Ml) Insuln.pen, 10-15 UNIT SQ BID Prescribed by: Katalina Olsen on 07/25/23 1153 Last Action: Reviewed Insulin Lispro (Insulin Lispro Kwikpen U-100) 100 Unit/Ml Insuln.pen, 1-10 UNITS SC AC Prescribed by: Katalina Olsen on 07/25/23 1152 Last Action: Reviewed Past Lnlbuyv-Aqsmtu-Jjtdtq Hx Reviewed Nursing Assessment Reviewed/Agree w Nursing PMH: Yes Family Medical History Significant Family History: No Pertinent Family Hx Review of Systems-General Constitutional: No chills, No diaphoresis EENTM: No blurred vision, No double vision Respiratory: No cough, No short of breath Cardiovascular: No chest pain, No palpitations Gastrointestinal: No abdominal pain, No diarrhea Genitourinary: No decreased output, No discharge Musculoskeletal: No back pain, No joint pain; other (right breast pain) Skin: change in color (right breast); No rash Psychiatric/Neurological: Denies Anxiety, Denies Depressed, Denies Emotional Problems All Other Systems Reviewed Negative Unless Noted: Yes (Negative excepted noted.) Physical Exam-General Problems Physical Exam General Appearance: WD/WN, no apparent distress HEENT: PERRL/EOMI, normal ENT inspection Neck: non-tender, supple Respiratory: chest non-tender, no respiratory distress, no accessory muscle use Cardiovascular: no JVD, tachycardia Gastrointestinal: non tender, soft Rectal: deferred Back: normal inspection, no CVA tenderness Extremities: non-tender, no pedal edema, no calf tenderness Neurologic/Psychiatric: alert, normal mood/affect, oriented x 3 Skin: warm/dry (right breast is erythematous, swollen, and warm to touch. Painful to palpation. Left breast is normal. ), other (Right breast is erythymatous, swollen, and warm. Extreme pain with palpation. Mass palpated subareolar region. About 2x the size of the left breast. Left breast is normal.) Lymphatic: no adenopathy Assessment/Plan Assessment/Plan Assessment/Plan Right Breast Abscess Right breast pain Diabetic US- showed 7x8cm fluid filled mass suggestive of abscess NPO Pain meds Abx Discussed risks and benefits for right breast I&D and all other indicated procedures she understands and wishes to proceed. Will need wound care and packing Consent To OR as soon as okay with anesthesia due to NPO status. Supervisory-Addendum Brief Verification & Attestation Participated in pt care: history, MDM, physical Personally performed: exam, history, MDM, supervision of care Care discussed with: Medical Student Procedures: n/a Results interpretation: Verified all documentation Verification and Attestation of Medical Student E/M Service A medical student performed and documented this service in my presence. I reviewed and verified all information documented by the medical student and made modifications to such information, when appropriate. I personally performed the physical exam and medical decision making. Cailin Torres, Aug 06, 2023,18:17 MOSHE DICKERSON Aug 06, 2023 13:05 CAILIN TORRES DO Aug 06, 2023 18:17
[2023-08-06] MEDS: VANCOMYCIN 1 GM/NS 250 ML IVPB IV SCH ×4 (13:10→20:55)
[2023-08-06] MEDS ORDERED: LACTATED RINGERS 1,000 ML 1,000 ML IV PRN (16:30)
[2023-08-06] MEDS ORDERED: FAMOTIDINE INJ 20MG/2ML VIAL IV ONE (16:30)
[2023-08-06] MEDS ORDERED: METOCLOPRAMIDE INJ 10 MG/2 ML IV ONE (16:30)
[2023-08-06] MEDS ORDERED: LIDOCAINE 2% w/EPI 1:100,000 20 ML VIAL ONE (18:37)
[2023-08-06] MEDS ORDERED: MIDAZOLAM INJ 2 MG/2 ML VIAL ONE (18:41)
[2023-08-06] MEDS ORDERED: fentaNYL INJECTION 100 MCG/2 ML VIAL ONE (18:41)
[2023-08-06] MEDS: LIDOCAINE 2% w/EPI 1:100,000 20 ML VIAL INJ ONE (19:15)
[2023-08-06] MEDS ORDERED: SUCCINYLCHOLINE INJ 20 MG/1 ML 10 ML VIAL ONE (19:19)
[2023-08-06] MEDS ORDERED: SEVOFLURANE (ULTANE) 15 ML INHAL SOLN ONE (19:19)
[2023-08-06] MEDS ORDERED: proPOfol INJECTION 200 MG/20 ML VIAL IV ONE (19:19)
[2023-08-06] MEDS ORDERED: ONDANSETRON INJECTION 4 MG/2 ML (SDV) ONE (19:19)
--- NOTE | 2023-08-06 19:19 | Progress Note-Post Operative ---
Post-Operative Progess Note Surgeon (s)/Stripper Black And White (s) Surgeon CAILIN TORRES DO Stripper Black And White: na Pre-Operative Diagnosis right breast abscess Post-Operative Diagnosis same Procedure & Operative Findings Date of Procedure 08/06/23 Procedure Performed/Findings i and right breast abscess Anesthesia Type general Estimated Blood Loss Estimated blood loss (mL): minimal Specimens/Packing Specimens Removed culture Packing: [email or web address] CAILIN TORRES DO Aug 06, 2023 19:19
[2023-08-06] MEDS ORDERED: morphine INJ 10 MG/ML 1ML (SYR OR VIAL) ONE (19:36)
--- NOTE | 2023-08-06 19:37 | Anesthesia-General Post-Op ---
General Patient Condition Mental Status/LOC: Same as Preop Cardiovascular: Satisfactory Nausea/Vomiting: Absent Respiratory: Satisfactory Pain: Controlled Complications: Absent Post Op Complications Complications None Follow Up Care/Instructions Patient Instructions None needed. Anesthesia/Patient Condition Patient Condition Patient is doing well, no complaints, stable vital signs, no apparent adverse anesthesia problems. No complications reported per nursing. ALIREZA HEDRICK CRNA Aug 06, 2023 19:37
[2023-08-06] MEDS ORDERED: ONDANSETRON INJECTION 4 MG/2 ML (SDV) IVP PRN (19:45)
[2023-08-06] MEDS ORDERED: morphine INJ 10 MG/ML 1ML (SYR OR VIAL) IVP ONE (19:45)
[2023-08-06] MEDS ORDERED: fentaNYL INJECTION 100 MCG/2 ML VIAL IVP ONE (19:45)
[2023-08-06] MEDS ORDERED: inSUlin DETERMIR 1 UNIT/0.01 ML (CHARGE PER UNIT) SQ SCH (21:00)
[2023-08-07] MEDS: PIPERACILLIN/Tazobactam 4.5 GM in NS (IVPB) 100 ML 100 ML IV SCH ×3 (01:54→17:55)
[2023-08-07] MEDS: fentaNYL INJECTION 100 MCG/2 ML VIAL IV PRN ×5 (01:54→22:20)
[2023-08-07] MEDS: oxyCODONE IMMEDIATE RELEASE 5 MG TABLET PO PRN ×4 (04:15→20:03)
[2023-08-07] MEDS: KETOROLAC INJ 30 MG/ML VIAL IVP PRN (04:15)
[2023-08-07 04:16] VITALS: BP 128/78
--- NOTE | 2023-08-07 04:16 | OPERATIVE REPORT ---
DATE OF SERVICE: 08/06/2023 PREOPERATIVE DIAGNOSIS: Right breast abscess. POSTOPERATIVE DIAGNOSIS: Right breast abscess. SURGEON: Cailin Lewis DO PROCEDURE: Incision and drainage of right breast abscess. ANESTHESIA: General. ESTIMATED BLOOD LOSS: Minimal. COMPLICATIONS: None. INDICATIONS: The patient is a 23-year-old female with a large right breast abscess. She understands risks and benefits of procedure and wished to proceed. Consent was signed in chart. DESCRIPTION OF PROCEDURE: The patient was taken to the operating suite, prepped and draped in sterile fashion. Timeout was performed. A #15 blade scalpel was used to make a periareolar incision on the medial inferior aspect. The abscess cavity was entered and purulent material erupted, culture was obtained. The skin and subcutaneous tissues were opened up into the large pocket, 500 mL of purulent material were able to be suctioned. The wound was then irrigated with copious amounts of irrigation. Hemostasis was achieved. A large portion of the breast was the abscess cavity. The wound was then packed with a Betadine-soaked Kerlix. The skin was then washed and dried and sterile bandage was applied. The patient tolerated the procedure well without any complications and taken to recovery room in stable condition. Job ID: [id number] DocumentID: [id number] Dictated Date: 08/06/2023 20:57:27 Floor Mechanic Date: 08/07/2023 04:13:00 Dictated By: CAILIN LEWIS DO
[2023-08-07] MEDS: VANCOMYCIN 1 GM/NS 250 ML IVPB IV SCH ×6 (04:20→21:12)
[2023-08-07 04:28] LABS: BASOPHILS % (AUTO) 1 % (0-10); EOSINOPHILS # (AUTO) 0.3 10^3/uL (0.0-0.3); EOSINOPHILS % (AUTO) 3 % (0-10); HEMATOCRIT 24 % (35-52); HEMOGLOBIN 7.4 g/dL (11.5-16.0); LYMPHOCYTES # (AUTO) 2.4 10^3/uL (1.0-4.0); LYMPHOCYTES % (AUTO) 27 % (12-44); MEAN CORPUSCULAR HEMOGLOBIN 26 pg (25-34); MEAN CORPUSCULAR HGB CONC 31 g/dL (32-36); MEAN CORPUSCULAR VOLUME 84 fL (80-99); MEAN PLATELET VOLUME 9.6 fL (9.0-12.2); MONOCYTES # (AUTO) 0.8 10^3/uL (0.0-1.0); MONOCYTES % (AUTO) 10 % (0-12); NEUTROPHILS # (AUTO) 5.1 10^3/uL (1.8-7.8); NEUTROPHILS % (AUTO) 59 % (42-75); PLATELET COUNT 337 10^3/uL (130-400); WHITE BLOOD COUNT 8.7 10^3/uL (4.3-11.0)
[2023-08-07 04:44] LABS: ALBUMIN 2.5 GM/DL (3.2-4.5); BILIRUBIN,TOTAL 0.2 MG/DL (0.1-1.0); CREATININE SERUM 0.74 MG/DL (0.60-1.30); MAGNESIUM 1.9 MG/DL (1.6-2.4); POTASSIUM 3.6 MMOL/L (3.6-5.0); TOTAL PROTEIN 5.1 GM/DL (6.4-8.2)
[2023-08-07] MEDS: inSUlin ASPART 1 UNIT/0.01 ML (PER UNIT) SC SCH ×4 (04:46→21:29)
--- NOTE | 2023-08-07 07:32 | Progress Note - Surgery ---
MOSHE DICKERSON 08/07/23 0732: Subjective Date Seen by a Provider: Aug 07, 2023 Time Seen by a Provider: 06:30 Subjective/Events-last exam Pt is laying comfortably in bed and is having no pain currently. States that she is tired, but no nausea or vomiting. Incision was c/d/i with decreased erythema. No purulent drainage from right breast. Denies fever, chest pain, SOA, chills. Family at bedside Review of Systems General: No Chills, No Night Sweats HEENT: No Head Aches, No Visual Changes Pulmonary: No Dyspnea, No Cough Cardiovascular: No: Chest Pain, Palpitations Gastrointestinal: No: Nausea, Vomiting, Abdominal Pain Genitourinary: No Dysuria, No Hematuria Musculoskeletal: No: neck pain, shoulder pain Neurological: No: Weakness, Numbness Focused Exam Lactate Level 08/05/23 00:35: Lactic Acid Level 3.53*H 08/05/23 22:10: Lactic Acid Level 5.24*H 08/06/23 02:35: Lactic Acid Level 1.45 Time of Focused Exam: 23:30 Objective Exam Vital Signs Date Time Temp Pulse Resp B/P (MAP) Pulse Ox O2 Delivery O2 Flow Rate FiO2 08/07/23 04:16 36.1 109 20 128/78 (95) 97 Room Air 08/06/23 23:15 36.8 110 18 126/86 (99) 98 Room Air 08/06/23 20:20 95 OxyMask 2.00 08/06/23 20:20 36.4 20 118/63 (81) 94 OxyMask 2.00 08/06/23 20:20 OxyMask 2.00 08/06/23 20:17 36.6 102 16 116/64 (81) 95 OxyMask 08/06/23 20:10 18 117/65 (82) 94 OxyMask 2.00 08/06/23 20:09 OxyMask 2.00 08/06/23 20:03 Room Air 08/06/23 20:00 18 114/60 (78) 93 OxyMask 1.00 08/06/23 19:59 OxyMask 1.00 08/06/23 19:54 OxyMask 2.00 08/06/23 19:52 OxyMask 6.00 08/06/23 19:50 18 120/64 (82) 95 OxyMask 6.00 08/06/23 19:42 OxyMask 6.00 08/06/23 19:40 22 120/78 (92) 96 OxyMask 6.00 08/06/23 19:31 OxyMask 6.00 08/06/23 19:31 36.1 22 127/82 (97) 99 OxyMask 6.00 08/06/23 16:14 36.1 100 16 117/78 (91) 99 Room Air 08/06/23 14:33 36.8 118 17 125/78 (94) 98 Room Air 08/06/23 12:13 125 08/06/23 12:00 115 32 137/89 (105) 97 Room Air 08/06/23 11:00 111 21 132/83 (99) 98 Room Air 08/06/23 10:00 120 12 128/77 (94) 97 Room Air 08/06/23 09:00 116 15 126/82 (97) 98 Room Air 08/06/23 08:11 36.7 08/06/23 08:00 115 15 137/93 (108) 100 Room Air 08/06/23 08:00 99 Room Air I & O 08/07/23 06:59 Intake Total 1800 ml Output Total 700 ml Balance 1100 ml Capillary Refill : Less Than 3 Seconds General Appearance: No Apparent Distress, Anxious HEENT: PERRL/EOMI, Pharynx Normal, Moist Mucous Membranes Neck: Full Range of Motion, Normal Inspection, Non Tender Respiratory: Lungs Clear, Normal Breath Sounds, No Accessory Muscle Use, No Respiratory Distress Cardiovascular: No Edema, No Murmur, Tachycardia Peripheral Pulses: 2+ Dorsalis Pedis (R), 2+ Left Dors-Pedis (L), 2+ Radial Pulses (R), 2+ Radial Pulses (L) Gastrointestinal: non tender, soft Extremity: Non Tender, No Calf Tenderness, No Pedal Edema Neurologic/Psychiatric: Alert, Oriented x3, No Motor/Sensory Deficits, Normal Mood/Affect Skin: Normal Color, Warm/Dry, Other (Right breast erythema and tenderness with palpation. Incision c/d/i. Right breast packed and dressed. No purulent drainage. RN in room during exam. ) Lymphatic: No Adenopathy Results Lab Laboratory Tests 08/06/23 11:30: Glucometer 358H 08/06/23 16:17: Glucometer 237H 08/06/23 18:08: Glucometer 264H 08/06/23 20:30: Glucometer 291H 08/07/23 04:15: White Blood Count 8.7, Red Blood Count 2.87L, Hemoglobin 7.4L, Hematocrit 24L, Mean Corpuscular Volume 84, Mean Corpuscular Hemoglobin 26, Mean Corpuscular Hemoglobin Concent 31L, Red Cell Distribution Width 16.9H, Platelet Count 337, Mean Platelet Volume 9.6, Immature Granulocyte % (Auto) 1, Neutrophils (%) (Auto) 59, Lymphocytes (%) (Auto) 27, Monocytes (%) (Auto) 10, Eosinophils (%) (Auto) 3, Basophils (%) (Auto) 1, Neutrophils # (Auto) 5.1, Lymphocytes # (Auto) 2.4, Monocytes # (Auto) 0.8, Eosinophils # (Auto) 0.3, Basophils # (Auto) 0.0, Immature Granulocyte # (Auto) 0.1, Sodium Level 139, Potassium Level 3.6, Chloride Level 110H, Carbon Dioxide Level 18L, Anion Gap 11, Blood Urea Nitrogen 6L, Creatinine 0.74, Estimat Glomerular Filtration Rate 118, BUN/Creatinine Ratio 8, Glucose Level 144H, Calcium Level 8.0L, Corrected Calcium 9.2, Magnesium Level 1.9, Total Bilirubin 0.2, Aspartate Amino Transf (AST/SGOT) 476H , Alanine Aminotransferase (ALT/SGPT) 110H, Alkaline Phosphatase 278H, Total Protein 5.1L, Albumin 2.5L Microbiology 08/06/23 MRSA Screen - Final, Complete MRSA not isolated 08/06/23 Gram Stain, Resulted Pending 08/06/23 Anaerobic Culture, Resulted Pending 08/06/23 Surgical Culture - Preliminary, Resulted Staphylococcus aureus 08/05/23 Blood Culture - Preliminary, Resulted Assessment/Plan Assessment/Plan Assessment/Plan Right Breast Abscess Right breast pain Diabetic S/p I&D right breast abscess US- showed 7x8cm fluid filled mass suggestive of abscess Pain meds Preliminary surgery cultures positive for Staph aureus, MRSA pending- D/c zosyn, continue vancomycin Wound care Regular diet CAILIN LEWIS DO 08/07/232031: Subjective Subjective/Events-last exam Right beast feeling better. Wound dressed. Less erythema and less pain. Tolerating diet. Denies n/v fever sweats chills shortness of breath or chest pain. Objective Exam General Appearance: No Apparent Distress, Anxious HEENT: PERRL/EOMI, Normal ENT Inspection Neck: Normal Inspection, Non Tender Respiratory: Chest Non Tender, No Accessory Muscle Use, No Respiratory Distress Cardiovascular: No Edema, Tachycardia Gastrointestinal: non tender, soft Extremity: Non Tender, No Calf Tenderness Neurologic/Psychiatric: Alert, Oriented x3 Skin: Normal Color, Warm/Dry, Other (Right breast erythema and tenderness with palpation less. Incision clean and dry. No purulent drainage. RN in room during exam. ) Lymphatic: No Adenopathy Assessment/Plan Assessment/Plan Assessment/Plan Right Breast Abscess Right breast pain Diabetic S/p I&D right breast abscess Pain meds Preliminary surgery cultures positive for Staph aureus, MRSA pending- Awaiting final reports. Wound care daily and as needed. Diet as tolerates. Supervisory-Addendum Brief Verification & Attestation Participated in pt care: history, MDM, physical Personally performed: exam, history, MDM, supervision of care Care discussed with: Medical Student Procedures: n/a Results interpretation: Verified all documentation Verification and Attestation of Medical Student E/M Service A medical student performed and documented this service in my presence. I reviewed and verified all information documented by the medical student and made modifications to such information, when appropriate. I personally performed the physical exam and medical decision making. Cailin Lewis, Aug 07, 2023,20:32 MOSHE DICKERSON Aug 07, 2023 07:32 CAILIN LEWIS DO Aug 07, 2023 20:32
[2023-08-07 07:42] VITALS: BP 115/79
[2023-08-07] MEDS: SENNOSIDES 8.6 MG TABLET PO SCH ×2 (08:22→20:03)
[2023-08-07] MEDS: DOCUSATE SODIUM 100 MG CAPSULE PO SCH ×2 (08:22→20:03)
[2023-08-07] MEDS: ENOXAPARIN 40 MG/0.4 ML SYRINGE SC SCH (08:23)
--- NOTE | 2023-08-07 10:26 | Progress Note - Hospitalist ---
ALECCAN MCLAUGHLIN 08/07/23 1026: Subjective HPI/CC On Admission Date Seen by Provider: Aug 07, 2023 Time Seen by Provider: 09:30 Chief complaint: Right breast pain with severe mastitis HPI: This is a 23-year-old female who is known to us from multiple DKA admissions who presented with right breast pain worse since discharge on Augmentin. She is found to have an abscess wire surgical intervention. Subjective/Events-last exam Pt complains of being a little sore this morning due to the procedure last night. Right breast abscess incision and drainage was performed by Dr. Lewis on 07/27 around 1900H. Pain is considerably less than yesterday which is managed through the morphine injection. Pt vomited once this morning around 0530 and denies seeing blood. Pt ate breakfast with no problems. Denies having any constipation or abdominal pain due to the pain medications. Pt is accompanied by her mother and grandmother. Review of Systems General: No Chills, No Night Sweats; Appetite HEENT: No Head Aches, No Visual Changes Pulmonary: No Cough Cardiovascular: No: Chest Pain, Palpitations Gastrointestinal: No: Nausea, Abdominal Pain, Diarrhea, Constipation Musculoskeletal: other (rt breast soreness) Neurological: No: Weakness, Numbness, Incoordination, Change in speech, Confusion Focused Exam Lactate Level 08/05/23 00:35: Lactic Acid Level 3.53*H 08/05/23 22:10: Lactic Acid Level 5.24*H 08/06/23 02:35: Lactic Acid Level 1.45 Time of Focused Exam: 23:30 Objective Exam Vital Signs Vital Signs Date Time Temp Pulse Resp B/P (MAP) Pulse Ox O2 Delivery O2 Flow Rate FiO2 08/07/23 11:30 36.1 95 16 114/73 (87) 96 Room Air 08/07/23 08:49 0.00 Capillary Refill : Less Than 3 Seconds General Appearance: No Apparent Distress HEENT: PERRL/EOMI; No Photophobia, No Scleral Icterus (L), No Scleral Icterus (R) Neck: Normal Inspection, Non Tender Respiratory: Lungs Clear, Normal Breath Sounds, No Accessory Muscle Use, No Respiratory Distress Cardiovascular: Regular Rate, Rhythm, No JVD, No Murmur Back: No CVA Tenderness Extremity: Normal Capillary Refill Neurologic/Psychiatric: Alert, Oriented x3, No Motor/Sensory Deficits, Normal 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 Assessment/Plan Assessment and Plan Assess & Plan/Chief Complaint Assessment: Right breast pain S/p I&D right breast abscess Type 1 DM Plan: Right breast pain S/p I&D right breast abscess -continue monitoring pt pain -waiting on Dr. Lewis to decide how to address wound dressing/packing Type 1 DM -monitor glc levels, glc was 144 at 0400 -continue Levemir, increasing dosage to her at home dose -stop IVF PATITO SMYTH DO 08/08/23 0435: Subjective Subjective/Events-last exam Patient doing much better Pain is controlled Will ambulate Objective Exam General Appearance: No Apparent Distress, WD/WN, Chronically ill Respiratory: Lungs Clear Assessment/Plan Assessment and Plan Assess & Plan/Chief Complaint Continue IV antibiotics Hep-Lock IV fluid Ambulate Supervisory-Addendum Brief Verification & Attestation Participated in pt care: history, MDM, physical Personally performed: exam, history, MDM, supervision of care Care discussed with: Medical Student Procedures: n/a Results interpretation: Verified all documentation Verification and Attestation of Medical Student E/M Service A medical student performed and documented this service in my presence. I reviewed and verified all information documented by the medical student and made modifications to such information, when appropriate. I personally performed the physical exam and medical decision making. Patito Smyth Aug 08, 2023,04:34 CAN MACK Aug 07, 2023 10:26 PATITO SMYTH DO Aug 08, 2023 04:35
[2023-08-07 11:30] VITALS: BP 114/73
[2023-08-07] MEDS: inSUlin DETERMIR 1 UNIT/0.01 ML (CHARGE PER UNIT) SQ SCH ×2 (15:12→21:29)
[2023-08-07 15:22] VITALS: BP 150/102
[2023-08-07] MEDS ORDERED: HYPOCHLOROUS ACID/NaCl WOUND SOLN 250 ML IR SCH (17:15)
[2023-08-07 19:12] VITALS: BP 145/95
[2023-08-07 23:10] VITALS: BP 146/87
[2023-08-08] MEDS: PIPERACILLIN/Tazobactam 4.5 GM in NS (IVPB) 100 ML 100 ML IV SCH ×2 (01:04→09:09)
[2023-08-08 04:39] VITALS: BP 131/89
[2023-08-08] MEDS: VANCOMYCIN 1 GM/NS 250 ML IVPB IV SCH ×4 (04:39→11:59)
[2023-08-08] MEDS: fentaNYL INJECTION 100 MCG/2 ML VIAL IV PRN ×3 (04:49→13:42)
[2023-08-08 04:50] LABS: BASOPHILS % (AUTO) 1 % (0-10); EOSINOPHILS # (AUTO) 0.3 10^3/uL (0.0-0.3); EOSINOPHILS % (AUTO) 4 % (0-10); HEMATOCRIT 24 % (35-52); HEMOGLOBIN 7.6 g/dL (11.5-16.0); LYMPHOCYTES # (AUTO) 2.7 10^3/uL (1.0-4.0); LYMPHOCYTES % (AUTO) 36 % (12-44); MEAN CORPUSCULAR HEMOGLOBIN 26 pg (25-34); MEAN CORPUSCULAR HGB CONC 31 g/dL (32-36); MEAN CORPUSCULAR VOLUME 83 fL (80-99); MEAN PLATELET VOLUME 9.7 fL (9.0-12.2); MONOCYTES # (AUTO) 0.8 10^3/uL (0.0-1.0); MONOCYTES % (AUTO) 10 % (0-12); NEUTROPHILS # (AUTO) 3.6 10^3/uL (1.8-7.8); NEUTROPHILS % (AUTO) 48 % (42-75); PLATELET COUNT 333 10^3/uL (130-400); WHITE BLOOD COUNT 7.5 10^3/uL (4.3-11.0)
[2023-08-08 05:24] LABS: ALBUMIN 2.5 GM/DL (3.2-4.5); BILIRUBIN,TOTAL 0.2 MG/DL (0.1-1.0); CALCIUM 8.4 MG/DL (8.5-10.1); CREATININE SERUM 0.79 MG/DL (0.60-1.30); MAGNESIUM 1.8 MG/DL (1.6-2.4); POTASSIUM 4.1 MMOL/L (3.6-5.0); TOTAL PROTEIN 5.6 GM/DL (6.4-8.2)
[2023-08-08] MEDS: inSUlin ASPART 1 UNIT/0.01 ML (PER UNIT) SC SCH ×2 (05:28→11:59)
[2023-08-08 07:42] VITALS: BP 127/87
--- NOTE | 2023-08-08 07:48 | Progress Note - Surgery ---
MOSHE DICKERSON 08/08/23 0748: Subjective Date Seen by a Provider: Aug 08, 2023 Time Seen by a Provider: 07:42 Subjective/Events-last exam Pt is laying in bed with minimal discomfort. Pain is well controlled. Right breast erythema is minimal. Small amounts of drainage. Incision is c/d/i Review of Systems General: No Chills, No Night Sweats HEENT: No Head Aches, No Visual Changes Pulmonary: No Dyspnea, No Cough Cardiovascular: No: Chest Pain, Palpitations Gastrointestinal: No: Nausea, Vomiting Genitourinary: No Dysuria, No Frequency Musculoskeletal: No: neck pain, shoulder pain Neurological: No: Weakness, Numbness Focused Exam Lactate Level 08/05/23 22:10: Lactic Acid Level 5.24*H 08/06/23 02:35: Lactic Acid Level 1.45 Time of Focused Exam: 23:30 Objective Exam Vital Signs Date Time Temp Pulse Resp B/P (MAP) Pulse Ox O2 Delivery O2 Flow Rate FiO2 08/08/23 04:39 36.3 89 16 131/89 (103) 96 Room Air 08/07/23 23:10 36.3 94 18 146/87 (106) 99 Room Air 08/07/23 20:14 Room Air 08/07/23 19:12 36.6 105 16 145/95 (112) Room Air 08/07/23 15:22 36.3 94 18 150/102 (118) 99 Room Air 08/07/23 11:30 36.1 95 16 114/73 (87) 96 Room Air 08/07/23 08:49 98 Room Air 0.00 I & O 08/08/23 07:00 Intake Total 4660 ml Output Total 3100 ml Balance 1560 ml Capillary Refill : Less Than 3 Seconds General Appearance: No Apparent Distress, WD/WN, Chronically ill HEENT: PERRL/EOMI, Normal ENT Inspection Neck: Normal Inspection, Non Tender Respiratory: Lungs Clear Cardiovascular: No Edema, Tachycardia Peripheral Pulses: 2+ Dorsalis Pedis (R), 2+ Left Dors-Pedis (L), 2+ Radial Pulses (R), 2+ Radial Pulses (L) Gastrointestinal: non tender, soft Extremity: Non Tender, No Calf Tenderness Neurologic/Psychiatric: Alert, Oriented x3, Normal Mood/Affect Skin: Normal Color, Warm/Dry, Other (Right breast erythema minimal and tenderness with palpation . Incision clean and dry. Scant drainage. RN in room during exam. ) Lymphatic: No Adenopathy Results Lab Laboratory Tests 08/07/23 11:06: Glucometer 326H 08/07/23 14:40: Iron Level 12L, Vitamin B12 Level 321 08/07/23 16:25: Glucometer 264H 08/07/23 20:31: Glucometer 306H 08/08/23 04:45: White Blood Count 7.5, Red Blood Count 2.91L, Hemoglobin 7.6L, Hematocrit 24L, Mean Corpuscular Volume 83, Mean Corpuscular Hemoglobin 26, Mean Corpuscular Hemoglobin Concent 31L, Red Cell Distribution Width 16.7H, Platelet Count 333, Mean Platelet Volume 9.7, Immature Granulocyte % (Auto) 1, Neutrophils (%) (Auto) 48, Lymphocytes (%) (Auto) 36, Monocytes (%) (Auto) 10, Eosinophils (%) (Auto) 4, Basophils (%) (Auto) 1, Neutrophils # (Auto) 3.6, Lymphocytes # (Auto) 2.7, Monocytes # (Auto) 0.8, Eosinophils # (Auto) 0.3, Basophils # (Auto) 0.0, Immature Granulocyte # (Auto) 0.1, Sodium Level 141, Potassium Level 4.1, Chloride Level 109H, Carbon Dioxide Level 22, Anion Gap 10, Blood Urea Nitrogen 7, Creatinine 0.79, Estimat Glomerular Filtration Rate 109, BUN/Creatinine Ratio 9, Glucose Level 106H, Calcium Level 8.4L, Corrected Calcium 9.6, Magnesium Level 1.8, Total Bilirubin 0.2, Aspartate Amino Transf (AST/SGOT) 182H, Alanine Aminotransferase (ALT/SGPT) 97H, Alkaline Phosphatase 266H, Total Protein 5.6L, Albumin 2.5L Microbiology 08/06/23 MRSA Screen - Final, Complete MRSA not isolated 08/06/23 Gram Stain - Final, Resulted 08/06/23 Anaerobic Culture, Resulted Pending 08/06/23 Surgical Culture - Preliminary, Resulted Staphylococcus aureus 08/05/23 Blood Culture - Preliminary, Resulted Assessment/Plan Assessment/Plan Assessment/Plan Right Breast Abscess Right breast pain Diabetic S/p I&D right breast abscess Pain meds Oral Abx- Bactrim Preliminary surgery cultures positive for Staph aureus, MRSA pending-presumptive cultures most likely MSSA rather than MRSA Outpatient Wound care daily and as needed. Diet as tolerates. Discharge home with follow up outpatient DIEGO CALDERÓN DO 08/08/23 1529: Subjective Time Seen by a Provider: 13:56 Subjective/Events-last exam Pt seen and examined, with nurse in the room. Review of Systems Pulmonary: No Dyspnea, No Cough Cardiovascular: No: Chest Pain, Palpitations Gastrointestinal: No: Nausea, Vomiting Objective Exam General Appearance: WD/WN, Mild Distress HEENT: PERRL/EOMI Respiratory: Lungs Clear, Normal Breath Sounds, No Accessory Muscle Use, No Respiratory Distress Cardiovascular: Regular Rate, Rhythm, No Murmur Gastrointestinal: non tender, soft Skin: Other (Right breast no erythema seen and scant drainage. RN in room during exam. ) Assessment/Plan Assessment/Plan Assessment/Plan Right Breast Abscess Right breast pain Diabetic S/p I&D right breast abscess Pain meds Oral Abx- Bactrim Preliminary surgery cultures positive for Staph aureus, MRSA pending-presumptive cultures most likely MSSA rather than MRSA Outpatient Wound care daily and as needed. Diet as tolerates. Discharge home with follow up outpatient Supervisory-Addendum Brief Verification & Attestation Participated in pt care: history, MDM, physical Personally performed: exam, history, MDM, supervision of care Care discussed with: Medical Student Procedures: n/a Verification and Attestation of Medical Student E/M Service A medical student performed and documented this service. I then reviewed and verified all information documented by the medical student and made modifications to such information, when appropriate. I personally performed a physical exam, medical decision making and then discussed any differences between the notes and made revisions as necessary to create one note. Diego Calderón , 08/08/23 , 15:29 MOSHE DICKERSON Aug 08, 2023 07:48 DIEGO CALDERÓN DO Aug 08, 2023 15:29
[2023-08-08] MEDS: oxyCODONE IMMEDIATE RELEASE 5 MG TABLET PO PRN ×2 (08:26→13:42)
[2023-08-08] MEDS: SENNOSIDES 8.6 MG TABLET PO SCH (08:26)
[2023-08-08] MEDS: DOCUSATE SODIUM 100 MG CAPSULE PO SCH (08:26)
[2023-08-08] MEDS: inSUlin DETERMIR 1 UNIT/0.01 ML (CHARGE PER UNIT) SQ SCH (08:27)
[2023-08-08] MEDS: ENOXAPARIN 40 MG/0.4 ML SYRINGE SC SCH (09:06)
[2023-08-08 11:11] VITALS: BP 131/90
[2023-08-08] MEDS ORDERED: AMOX1TAB12 PO (13:20)
--- NOTE | 2023-08-08 13:21 | Discharge Summary ---
Discharge Summary Hospital Course Was the Problem List Reviewed?: Yes Problems/Dx: (1) Abscess of right breast (2) Sepsis Status: Acute (3) Type 1 diabetes mellitus Status: Chronic Hospital Course Date of Admission: Aug 05, 2023 at 23:28 Admission Diagnosis : Family Physician/Provider: Carlos Lyn DO Date of Discharge: 08/08/23 Discharge Diagnosis: [ ] Hospital Course: Uneventful hospital course. She was admitted for right breast mastitis placed on broad-spectrum antibiotics requiring abscess drainage by Dr. Lewis. Packing close follow-up with wound care and we will restart Augmentin since it is MSSA. Labs and Pending Lab Test: Laboratory Tests 08/07/23 14:40: Iron Level 12L, Vitamin B12 Level 321 08/07/23 16:25: Glucometer 264H 08/07/23 20:31: Glucometer 306H 08/08/23 04:45: White Blood Count 7.5, Red Blood Count 2.91L, Hemoglobin 7.6L, Hematocrit 24L, Mean Corpuscular Volume 83, Mean Corpuscular Hemoglobin 26, Mean Corpuscular Hemoglobin Concent 31L, Red Cell Distribution Width 16.7H, Platelet Count 333, Mean Platelet Volume 9.7, Immature Granulocyte % (Auto) 1, Neutrophils (%) (Auto) 48, Lymphocytes (%) (Auto) 36, Monocytes (%) (Auto) 10, Eosinophils (%) (Auto) 4, Basophils (%) (Auto) 1, Neutrophils # (Auto) 3.6, Lymphocytes # (Auto) 2.7, Monocytes # (Auto) 0.8, Eosinophils # (Auto) 0.3, Basophils # (Auto) 0.0, Immature Granulocyte # (Auto) 0.1, Sodium Level 141, Potassium Level 4.1, Chloride Level 109H, Carbon Dioxide Level 22, Anion Gap 10, Blood Urea Nitrogen 7, Creatinine 0.79, Estimat Glomerular Filtration Rate 109, BUN/Creatinine Ratio 9, Glucose Level 106H, Calcium Level 8.4L, Corrected Calcium 9.6, Magnesium Level 1.8, Total Bilirubin 0.2, Aspartate Amino Transf (AST/SGOT) 182H, Alanine Aminotransferase (ALT/SGPT) 97H, Alkaline Phosphatase 266H, Total Protein 5.6L, Albumin 2.5L 08/08/23 10:56: Glucometer 270H Microbiology 08/06/23 MRSA Screen - Final, Complete MRSA not isolated 08/06/23 Gram Stain - Final, Resulted 08/06/23 Anaerobic Culture, Resulted Pending 08/06/23 Surgical Culture - Preliminary, Resulted Staphylococcus aureus 08/05/23 Blood Culture - Preliminary, Resulted Home Meds Active Lantus Solostar (Insulin Glargine,Hum.rec.anlog) 100 Unit/Ml (3 Ml) Insuln.pen 10-15 Unit SQ BID 30 Days Insulin Lispro Kwikpen U-100 (Insulin Lispro) 100 Unit/Ml Insuln.pen 1-10 Units SC AC 30 Days Reported Tylenol Extra Strength (Acetaminophen) 500 Mg Tablet 1,000 Mg PO Q8H PRN Bupropion HCl 75 Mg Tablet 75 Mg PO BID LAST FILLED 02-22-2023 #180/90 DAY SUPPLY Assessment/Pt Instructions Wound care as ordered Discharge Planning: <30 minutes discharge planning Discharge Instructions Discharge Diet: ADA Diet Discharge Physical Examination Vital Signs Vital Signs Date Time Temp Pulse Resp B/P (MAP) Pulse Ox O2 Delivery O2 Flow Rate FiO2 08/08/23 11:11 37.1 79 16 131/90 (104) 95 Room Air 08/07/23 08:49 0.00 General Appearance: No Apparent Distress, WD/WN Allergies: Coded Allergies: bismuth subsalicylate (Verified Allergy, Unknown, 08/29/22) latex (Unverified Allergy, Unknown, 01/09/23) Discharge Summary Date of Admission Aug 05, 2023 at 23:28 Date of Discharge Discharge Date: Aug 08, 2023 Admission Diagnosis Assessment: Right breast mastitis with abscess failed oral Type 1 diabetes with multiple DKA admissions Plan: General surgery consult Dr. Lewis consult appreciated Ultrasound IV antibiotics Moved to fourth floor Discharge Diagnosis Continue IV antibiotics Hep-Lock IV fluid Ambulate JOSIE SMYTH DO Aug 08, 2023 13:21
--- NOTE | 2023-08-08 13:49 | Progress Note ---
CAN MACK 08/08/23 1349: Progress Note Simi Diggs is a 23 year old female with a PMH of Type 1 DM, frequent episodes of DKA, Hepatic Steatosis, and Depression who presented to the ED on 08/05 for right breast mastitis. Labs were ordered. In the ED she was administered IVF, Zosyn and Vancomycin, toradol, and fentanyl. Pt was admitted due to concerns of sepsis and acute mastitis of the right breast. Surgery was consulted and Dr. Lewis saw the patient on 08/06. US of the rt breast showed 7x8cm fluid filled mast that was suggestive of an abscess. The pt became NPO and an I&D was performed that night. On 08/07 the patient complained of being a little sore due to the I&D but she states that her pain was considerably less than the previous day. Pain was managed through pain medications. Pt denies having any assoc sx or adverse affects from the pain medication. We had no concerns regarding her lab reports. Pt has been stable. Today, 08/08, the patient will be discharged. Dr. Lewis confirms that it is okay to dc. The patient verbalized that she is okay to go home. She denied having any pain medications at home so I discussed sending her home with some. I discussed with the patient if she would like to follow up about her wound in our wound care clinic or at Dr. Lewis's clinic. Pt did not have a preference. PATITO SMYTH DO 08/08/232102: Supervisory-Addendum Brief Verification & Attestation Participated in pt care: history, MDM, physical Personally performed: exam, history, MDM, supervision of care Care discussed with: Medical Student Procedures: n/a Results interpretation: Verified all documentation Verification and Attestation of Medical Student E/M Service A medical student performed and documented this service in my presence. I reviewed and verified all information documented by the medical student and made modifications to such information, when appropriate. I personally performed the physical exam and medical decision making. Patito Smyht, Aug 08, 2023,21:03 CAN MACK Aug 08, 2023 13:49 PATITO SMYTH DO Aug 08, 2023 21:03
[2023-08-08 15:39] VITALS: BP 131/90
== END 2023-08-08 15:41 | disposition home or self-care (01) | DRG 855 ==
LOC: EDUNIT# 21:42 → ER 21:44 → ICU 23:28 → 4TH 08-06 13:00
PROVIDERS: ADMIT Internal Medicine; ATTEND Internal Medicine
PROC: 0H9T0ZZ Drainage of Right Breast, Open Approach (ICD-10-PCS; principal; 2023-08-06 18:54)
DX: A41.9 Sepsis, unspecified organism (principal); N61.1 Abscess of the breast and nipple; B95.61 Methicillin susceptible Staphylococcus aureus infection as the cause of diseases classified elsewhere; E10.9 Type 1 diabetes mellitus without complications; D64.9 Anemia, unspecified; F41.9 Anxiety disorder, unspecified; F32.A Depression, unspecified; Z79.899 Other long term (current) drug therapy; Z91.09 Other allergy status, other than to drugs and biological substances
CPT/HCPCS: 36415; 71045; 80053; 82010; 82607; 82947; 83540; 83605; 83735; 84703; 85025; 85610; 85652; 85730; 86141; 87040; 87070; 87075; 87077; 87081; 87186; 87205; 93041

== ENCOUNTER → 2023-08-09 | Outpatient (CLI) | payer BC, MEDICAID | LOC: WOUNDCARE 12:09 | PROVIDERS: ATTEND Family Medicine | DX: N61.1 Abscess of the breast and nipple (principal); B95.61 Methicillin susceptible Staphylococcus aureus infection as the cause of diseases classified elsewhere; E10.65 Type 1 diabetes mellitus with hyperglycemia; D46.4 Refractory anemia, unspecified; E44.0 Moderate protein-calorie malnutrition; F17.290 Nicotine dependence, other tobacco product, uncomplicated; T81.31XA Disruption of external operation (surgical) wound, not elsewhere classified, initial encounter | CPT/HCPCS: 99212 ==

== ENCOUNTER → 2023-08-15 | Outpatient (CLI) | payer BC, MEDICAID | LOC: WOUNDCARE 13:28 | PROVIDERS: ATTEND Family Medicine | DX: E11.65 Type 2 diabetes mellitus with hyperglycemia (principal); N61.1 Abscess of the breast and nipple; B95.61 Methicillin susceptible Staphylococcus aureus infection as the cause of diseases classified elsewhere; D46.4 Refractory anemia, unspecified; E44.0 Moderate protein-calorie malnutrition; T81.31XA Disruption of external operation (surgical) wound, not elsewhere classified, initial encounter; D50.8 Other iron deficiency anemias; F17.290 Nicotine dependence, other tobacco product, uncomplicated; E11.52 Type 2 diabetes mellitus with diabetic peripheral angiopathy with gangrene | CPT/HCPCS: 11042 ==